=== PATIENT | female | born 1990 | race Two or more races ===

== ENCOUNTER 2019-07-26 11:35 | Emergency (ER) | payer MEDICAID ==
[~2019-07-26] VITALS: Ht 162.6 cm; Wt 69.9 kg
[2019-07-26 11:57] VITALS: BP 144/99
== END 2019-07-26 12:35 | disposition left against medical advice (07) ==
LOC: ER 11:35
DX: R10.9 Unspecified abdominal pain (principal); R11.2 Nausea with vomiting, unspecified; R19.7 Diarrhea, unspecified; Z53.21 Procedure and treatment not carried out due to patient leaving prior to being seen by health care provider

== ENCOUNTER 2019-10-29 05:34 | Emergency (ER) | payer SELFPAY ==
[~2019-10-29] VITALS: Ht 165.1 cm; Wt 70.3 kg
[2019-10-29 07:24] VITALS: BP 121/82
== END 2019-10-29 07:46 | disposition home or self-care (01) ==
LOC: ER 05:34
DX: J02.9 Acute pharyngitis, unspecified (principal); F17.210 Nicotine dependence, cigarettes, uncomplicated; F12.10 Cannabis abuse, uncomplicated

== ENCOUNTER 2021-01-05 16:31 | Emergency (ER) | payer MEDICAID, OTHER ==
[~2021-01-05] VITALS: Ht 167.6 cm; Wt 70.3 kg
[2021-01-05] MEDS ORDERED: PANTOPRAZOLE 40 MG/10 ML VIAL INJ IV STA (18:11)
[2021-01-05] MEDS ORDERED: MORPHINE SULFATE 4 MG/ML SYR/VIAL IV ONE (18:15)
[2021-01-05] MEDS ORDERED: ONDANSETRON HCL 4 MG/2 ML VIAL IV ONE (18:15)
[2021-01-05] MEDS ORDERED: SODIUM CHLORIDE 0.9% 1,000 ML IVB ONE (18:15)
[2021-01-05 18:40] LABS: Potassium 3.5 mmol/L (3.5-5.1)
[2021-01-05 18:56] LABS: Hemoglobin 13.4 g/dL (12.2-16.2); Platelet Count (auto) 301 10^3/uL (140-450); Red Cell Distribution Width 15.7 % (11.8-14.3)
[2021-01-05 18:58] LABS: Hematocrit 33.2 % (36.0-46.0); Mean Corpuscular Hemoglobin 33.2 pg (28.0-32.0); Mean Corpuscular Volume 81.9 fL (80.0-100.0); Red Blood Cells 4.05 10^6/uL (4.0-5.20); White Blood Cell 11.9 10^3/uL (4.4-10.8)
[2021-01-05 19:04] LABS: Basophils % (manual) 0 (0.0-2.0); Blast Cells 0; Mean Corpuscular Hgb Conc. 40.5 g/dL (32.0-36.0); Metamyelocytes % 0; Myelocytes % 0; Promyelocytes % 0; Reactive Lymphocytes 0
[2021-01-05 19:05] LABS: Urine Amorphous Crystal FEW /hpf (None Seen); Urine Bacteria FEW /hpf (None Seen); Urine Blood Negative /uL (Negative); Urine Specific Gravity 1.019 (1.001-1.035); Urine WBC 1 /hpf (0 - 5)
[2021-01-05 19:28] LABS: Band Neutrophils % (manual) 2; Eosinophils % (manual) 1 (0-7); Lymphocytes % (manual) 18 (10.0-50.0); Monocytes % (manual) 2 (0-12)
[2021-01-05 19:33] LABS: Bilirubin, Total 0.2 mg/dL (0.2-1.0)
[2021-01-05 19:34] LABS: Aspartate Aminotransferase 20.4 U/L (15-37)
[2021-01-05 19:35] LABS: Albumin 3.7 g/dL (3.4-5.0); Calcium 7.9 mg/dL (8.5-10.1); Total Protein 6.1 g/dL (6.4-8.2)
[2021-01-05 19:36] LABS: BUN/Creatinine Ratio 17.5
[2021-01-05 20:08] VITALS: BP 105/61
== END 2021-01-05 20:19 | disposition home or self-care (01) ==
LOC: ER 16:31
DX: R10.13 Epigastric pain (principal); F12.10 Cannabis abuse, uncomplicated; F17.210 Nicotine dependence, cigarettes, uncomplicated; E78.5 Hyperlipidemia, unspecified
CPT/HCPCS: 36415; 74176; 76705; 80053; 81001; 81025; 83690; 85007; 85027; 96361; 96374; 96375; 99285; C9113; J2270; J2405; J7030

== ENCOUNTER 2021-01-14 10:02 | Inpatient (IN) | payer OTHER ==
[~2021-01-14] VITALS: Ht 167.6 cm; Wt 74.3 kg
[2021-01-14] MEDS ORDERED: PROCHLORPERAZINE EDISYLATE 5 MG/ML 2ML VIAL IV ONE (10:30)
[2021-01-14] MEDS ORDERED: SODIUM CHLORIDE 0.9% 1,000 ML IVB ONE (10:30)
[2021-01-14] MEDS ORDERED: PANTOPRAZOLE 40 MG/10 ML VIAL INJ IV STA (10:30)
[2021-01-14] MEDS ORDERED: HYDROmorphone HCL 2 MG/ML VL IV ONE (10:30)
[2021-01-14 10:55] LABS: Eosinophils # (auto) 0.2 10 ^3/uL (0-0.8); Nucleated Red Blood Cells % 0.2 %
[2021-01-14 10:57] LABS: Basophils # (auto) 0.2 10 ^3/uL (0-0.2); Basophils % (auto) 2.1 % (0.0-2.0); Eosinophils % (auto) 1.9 % (0.0-7.0); Hematocrit 32.8 % (36.0-46.0); Hemoglobin 12.5 g/dL (12.2-16.2); Lymphocytes # (auto) 2.4 10 ^3/uL (0.4-5.4); Lymphocytes % (auto) 25.8 % (10.0-50.0); Mean Corpuscular Hemoglobin 30.3 pg (28.0-32.0); Mean Corpuscular Hgb Conc. 38.1 g/dL (32.0-36.0); Mean Corpuscular Volume 79.6 fL (80.0-100.0); Monocytes # (auto) 0.4 10 ^3/uL (0-1.3); Monocytes % (auto) 4.4 % (0.0-12.0); Neutrophils # (auto) 6.2 10 ^3/uL (1.6-8.6); Neutrophils % (auto) 65.8 % (37.0-80.0); Platelet Count (auto) 333 10^3/uL (140-450); Red Blood Cells 4.12 10^6/uL (4.0-5.20); Red Cell Distribution Width 15.9 % (11.8-14.3); White Blood Cell 9.4 10^3/uL (4.4-10.8)
[2021-01-14 12:16] LABS: Aspartate Aminotransferase 679 U/L (15-37)
[2021-01-14 13:54] LABS: Alanine Aminotransferase 60 U/L (13-56); Alkaline Phosphatase 74 U/L (45-117); Total Protein 10.5 g/dL (6.4-8.2)
[2021-01-14 13:55] LABS: Chloride 101 mmol/L (98-107); Potassium 4.7 mmol/L (3.5-5.1); Sodium 133 mmol/L (136-145)
[2021-01-14 13:56] LABS: Anion Gap 24 (5-15); Carbon Dioxide 8 mmol/L (21-32); GFR African American 181 mL/min; GFR Non-African American 149 mL/min; Glucose 168 mg/dL (74-106)
[2021-01-14 13:57] LABS: BUN/Creatinine Ratio 15.4; Blood Urea Nitrogen 8 mg/dL (7-18); Calcium 8.2 mg/dL (8.5-10.1)
[2021-01-14 13:58] LABS: Amylase 76 U/L (25-115); Lipase 759 U/L (73-393)
[2021-01-14 14:17] LABS: Urine Bacteria FEW /hpf (None Seen); Urine Blood TRACE /uL (Negative); Urine Mucus FEW (None Seen); Urine Specific Gravity 1.016 (1.001-1.035); Urine WBC 2 /hpf (0 - 5)
[2021-01-14] MEDS ORDERED: IOHEXOL 300 MG/ML 100ML BOTTLE IJ ONE (14:20)
[2021-01-14 14:28] LABS: Bilirubin, Total 0.9 mg/dL (0.2-1.0)
[2021-01-14] MEDS ORDERED: LACTATED RINGER'S 1,000 ML IV ONE (14:30)
[2021-01-14] MEDS: ONDANSETRON HCL 4 MG/2 ML VIAL IV PRN (16:50)
[2021-01-14] MEDS ORDERED: OMEP-260 PO (17:09)
[2021-01-14] MEDS ORDERED: FERR324T4 PO (17:09)
[2021-01-14] MEDS ORDERED: FENO54TA4 PO (17:09)
[2021-01-14] MEDS ORDERED: HYDR-3682 PO (17:09)
[2021-01-14] MEDS: LACTATED RINGER'S 1,000 ML IV SCH ×2 (17:22→22:14)
[2021-01-14 18:24] LABS: CRP High Sensitivity 0.64 mg/dL (< 0.3)
[2021-01-14 18:33] LABS: Cholesterol 325 mg/dL (< 200); HDL Cholesterol 21 mg/dL (40-59); Triglycerides 3427 mg/dL (< 150)
[2021-01-14] MEDS: HYDROmorphone HCL 2 MG/ML VL IV PRN (18:34)
[2021-01-14 22:00] VITALS: BP 133/80
[2021-01-15 05:00] VITALS: BP 129/77
[2021-01-15 05:34] LABS: Basophils # (auto) 0.2 10 ^3/uL (0-0.2); Basophils % (auto) 1.2 % (0.0-2.0); Eosinophils # (auto) 0.1 10 ^3/uL (0-0.8); Eosinophils % (auto) 0.5 % (0.0-7.0); Hematocrit 32.3 % (36.0-46.0); Hemoglobin 11.1 g/dL (12.2-16.2); Lymphocytes % (auto) 12.2 % (10.0-50.0); Mean Corpuscular Hemoglobin 27.5 pg (28.0-32.0); Mean Corpuscular Hgb Conc. 34.3 g/dL (32.0-36.0); Mean Corpuscular Volume 80.2 fL (80.0-100.0); Monocytes # (auto) 0.7 10 ^3/uL (0-1.3); Monocytes % (auto) 4.2 % (0.0-12.0); Neutrophils # (auto) 13.6 10 ^3/uL (1.6-8.6); Neutrophils % (auto) 81.9 % (37.0-80.0); Nucleated Red Blood Cells % 0.2 %; Platelet Count (auto) 317 10^3/uL (140-450); Red Blood Cells 4.02 10^6/uL (4.0-5.20); Red Cell Distribution Width 15.7 % (11.8-14.3); White Blood Cell 16.6 10^3/uL (4.4-10.8)
[2021-01-15 05:44] LABS: Albumin 2.6 g/dL (3.4-5.0); Calcium 7.1 mg/dL (8.5-10.1)
[2021-01-15] MEDS: LACTATED RINGER'S 1,000 ML IV SCH ×3 (05:45→22:33)
[2021-01-15] MEDS: HYDROmorphone HCL 2 MG/ML VL IV PRN ×3 (05:45→20:33)
[2021-01-15 05:47] LABS: Bilirubin, Total 0.8 mg/dL (0.2-1.0); Total Protein 6.2 g/dL (6.4-8.2)
[2021-01-15 06:55] LABS: BUN/Creatinine Ratio 11.9
[2021-01-15 09:00] VITALS: BP 123/71
[2021-01-15] MEDS: ESOMEPRAZOLE 40 MG/5ml VIAL INJ IV SCH (09:38)
[2021-01-15 12:45] VITALS: BP 137/79
[2021-01-15 16:50] VITALS: BP 140/87
[2021-01-15 22:00] VITALS: BP 139/85
[2021-01-15] MEDS: ONDANSETRON HCL 4 MG/2 ML VIAL IV PRN (23:43)
[2021-01-16] MEDS: HYDROmorphone HCL 2 MG/ML VL IV PRN ×3 (04:13→20:01)
[2021-01-16 05:00] VITALS: BP 146/81
[2021-01-16] MEDS: LACTATED RINGER'S 1,000 ML IV SCH ×3 (06:32→22:15)
[2021-01-16 06:59] LABS: Basophils # (auto) 0.1 10 ^3/uL (0-0.2); Basophils % (auto) 0.6 % (0.0-2.0); Eosinophils # (auto) 0 10 ^3/uL (0-0.8); Eosinophils % (auto) 0.1 % (0.0-7.0); Hematocrit 29.4 % (36.0-46.0); Hemoglobin 9.8 g/dL (12.2-16.2); Lymphocytes # (auto) 2.2 10 ^3/uL (0.4-5.4); Mean Corpuscular Hemoglobin 26.6 pg (28.0-32.0); Mean Corpuscular Hgb Conc. 33.2 g/dL (32.0-36.0); Mean Corpuscular Volume 80.3 fL (80.0-100.0); Monocytes # (auto) 0.9 10 ^3/uL (0-1.3); Neutrophils # (auto) 14.9 10 ^3/uL (1.6-8.6); Neutrophils % (auto) 82.3 % (37.0-80.0); Platelet Count (auto) 276 10^3/uL (140-450); Red Blood Cells 3.66 10^6/uL (4.0-5.20); Red Cell Distribution Width 15.6 % (11.8-14.3); White Blood Cell 18.1 10^3/uL (4.4-10.8)
[2021-01-16 08:34] VITALS: BP 135/89
[2021-01-16] MEDS: ESOMEPRAZOLE 40 MG/5ml VIAL INJ IV SCH (10:03)
[2021-01-16] MEDS: ONDANSETRON HCL 4 MG/2 ML VIAL IV PRN (10:55)
[2021-01-16 12:41] VITALS: BP 140/76
[2021-01-16] MEDS: CEFTRIAXONE SODIUM 2 GM in D5W 5% 50 ML IV SCH (13:47)
[2021-01-16 16:41] VITALS: BP 135/93
[2021-01-16] MEDS: metroNIDAZOLE 500MG/100ML 100 ML IV SCH (17:20)
[2021-01-16] MEDS: ACETAMINOPHEN 325 MG TAB PO PRN (17:20)
[2021-01-16 22:00] VITALS: BP 134/87
[2021-01-17] MEDS: metroNIDAZOLE 500MG/100ML 100 ML IV SCH ×3 (01:45→17:57)
[2021-01-17] MEDS: ACETAMINOPHEN 325 MG TAB PO PRN ×2 (01:45→20:26)
[2021-01-17 05:00] VITALS: BP 143/93
[2021-01-17] MEDS: LACTATED RINGER'S 1,000 ML IV SCH (06:01)
[2021-01-17 07:14] LABS: Basophils # (auto) 0.1 10 ^3/uL (0-0.2); Eosinophils # (auto) 0.1 10 ^3/uL (0-0.8); Eosinophils % (auto) 0.7 % (0.0-7.0); Monocytes # (auto) 0.7 10 ^3/uL (0-1.3); Monocytes % (auto) 4.7 % (0.0-12.0)
[2021-01-17 07:16] LABS: Basophils % (auto) 0.6 % (0.0-2.0); Hematocrit 24.6 % (36.0-46.0); Hemoglobin 8.6 g/dL (12.2-16.2); Lymphocytes # (auto) 2.4 10 ^3/uL (0.4-5.4); Lymphocytes % (auto) 16.3 % (10.0-50.0); Mean Corpuscular Hemoglobin 28.2 pg (28.0-32.0); Mean Corpuscular Hgb Conc. 34.9 g/dL (32.0-36.0); Mean Corpuscular Volume 80.8 fL (80.0-100.0); Neutrophils # (auto) 11.3 10 ^3/uL (1.6-8.6); Neutrophils % (auto) 77.7 % (37.0-80.0); Platelet Count (auto) 244 10^3/uL (140-450); Red Blood Cells 3.04 10^6/uL (4.0-5.20); Red Cell Distribution Width 15.4 % (11.8-14.3); White Blood Cell 14.5 10^3/uL (4.4-10.8)
[2021-01-17 08:47] VITALS: BP 131/89
[2021-01-17] MEDS: ESOMEPRAZOLE 40 MG/5ml VIAL INJ IV SCH (10:52)
[2021-01-17 12:50] VITALS: BP 137/87
[2021-01-17] MEDS: HYDROmorphone HCL 2 MG/ML VL IV PRN (13:08)
[2021-01-17] MEDS: ONDANSETRON HCL 4 MG/2 ML VIAL IV PRN (13:08)
[2021-01-17] MEDS: CEFTRIAXONE SODIUM 2 GM in D5W 5% 50 ML IV SCH (14:30)
[2021-01-17 17:00] VITALS: BP 149/84
[2021-01-17 22:00] VITALS: BP 146/88
[2021-01-17] MEDS ORDERED: ATORVASTATIN 20 MG TAB PO SCH (22:00)
[2021-01-17] MEDS: GEMFIBROZIL 600 MG TAB PO SCH (22:30)
[2021-01-18] MEDS: metroNIDAZOLE 500MG/100ML 100 ML IV SCH ×2 (01:59→09:47)
[2021-01-18] MEDS: ONDANSETRON HCL 4 MG/2 ML VIAL IV PRN (04:04)
[2021-01-18] MEDS: HYDROmorphone HCL 2 MG/ML VL IV PRN (04:04)
[2021-01-18 05:00] VITALS: BP 134/79
[2021-01-18 06:23] LABS: Hemoglobin 8.2 g/dL (12.2-16.2); Mean Corpuscular Volume 80.6 fL (80.0-100.0)
[2021-01-18 06:25] LABS: Hematocrit 23.7 % (36.0-46.0); Mean Corpuscular Hemoglobin 27.8 pg (28.0-32.0); Mean Corpuscular Hgb Conc. 34.5 g/dL (32.0-36.0); Platelet Count (auto) 255 10^3/uL (140-450); Red Blood Cells 2.94 10^6/uL (4.0-5.20); Red Cell Distribution Width 15.4 % (11.8-14.3); White Blood Cell 9.5 10^3/uL (4.4-10.8)
[2021-01-18 06:34] LABS: Basophils % (manual) 0 (0.0-2.0); Myelocytes % 0
[2021-01-18 06:35] LABS: Blast Cells 0; Promyelocytes % 0; Reactive Lymphocytes 0
[2021-01-18 07:16] LABS: Band Neutrophils % (manual) 1; Eosinophils % (manual) 3 (0-7); Lymphocytes % (manual) 19 (10.0-50.0); Metamyelocytes % 1; Monocytes % (manual) 7 (0-12)
[2021-01-18 08:51] VITALS: BP 135/89
[2021-01-18] MEDS: GEMFIBROZIL 600 MG TAB PO SCH (09:47)
[2021-01-18] MEDS: ESOMEPRAZOLE 40 MG/5ml VIAL INJ IV SCH (09:48)
[2021-01-18 12:49] VITALS: BP 137/79
== END 2021-01-18 15:26 | disposition home or self-care (01) | DRG 282 ==
LOC: ER 10:02 → TELE 10:03 → TELE-WESTW 16:28
PROVIDERS: ADMIT Nurse Practitioner Acute Care; ATTEND Family Medicine
DX: K85.20 Alcohol induced acute pancreatitis without necrosis or infection (principal); R65.10 Systemic inflammatory response syndrome (SIRS) of non-infectious origin without acute organ dysfunction; E87.2 Acidosis; E44.0 Moderate protein-calorie malnutrition; E86.0 Dehydration; E78.5 Hyperlipidemia, unspecified; E78.00 Pure hypercholesterolemia, unspecified; E78.1 Pure hyperglyceridemia; F17.210 Nicotine dependence, cigarettes, uncomplicated; Z20.822 Contact with and (suspected) exposure to COVID-19; Z83.3 Family history of diabetes mellitus; Z79.899 Other long term (current) drug therapy
CPT/HCPCS: 36415; 74177; 76705; 80053; 80061; 81001; 82150; 83605; 83690; 84702; 85007; 85025; 85027; 86141; 87040; 87086; 87426; 96361; 96374; 96375; C9113; G0378; J0696; J2405; J3490; J7060

== ENCOUNTER 2022-07-11 00:35 | Emergency (ER) | payer OTHER ==
[~2022-07-11] VITALS: Ht 167.6 cm; Wt 65.0 kg
[~2022-07-11 00:35] MED LIST: FENO54TA4 PO; FERR324T4 PO; HYDR-3682 PO; OMEP-260 PO
[2022-07-11 05:03] LABS: Basophils # (auto) 0.1 10 ^3/uL (0-0.2); Basophils % (auto) 0.6 % (0.0-2.0); Eosinophils # (auto) 0.2 10 ^3/uL (0-0.8); Eosinophils % (auto) 1.8 % (0.0-7.0); Hematocrit 33.4 % (36.0-46.0); Hemoglobin 12.1 g/dL (12.2-16.2); Lymphocytes # (auto) 3.9 10 ^3/uL (0.4-5.4); Mean Corpuscular Hemoglobin 31.1 pg (28.0-32.0); Mean Corpuscular Hgb Conc. 36.2 g/dL (32.0-36.0); Mean Corpuscular Volume 85.8 fL (80.0-100.0); Monocytes # (auto) 0.5 10 ^3/uL (0-1.3); Neutrophils # (auto) 6.2 10 ^3/uL (1.6-8.6); Neutrophils % (auto) 56.6 % (37.0-80.0); Nucleated Red Blood Cells % 0.2 %; Red Blood Cells 3.89 10^6/uL (4.0-5.20); Red Cell Distribution Width 13.4 % (11.8-14.3); White Blood Cell 10.9 10^3/uL (4.4-10.8)
[2022-07-11 05:09] LABS: Albumin 3.1 g/dL (3.4-5.0); Calcium 7.6 mg/dL (8.5-10.1)
[2022-07-11 05:17] LABS: Bilirubin, Total 0.6 mg/dL (0.2-1.0)
[2022-07-11 05:45] VITALS: BP 139/83
[2022-07-11 05:48] LABS: BUN/Creatinine Ratio 16.4
== END 2022-07-11 05:52 | disposition home or self-care (01) ==
LOC: ER 00:37
DX: R07.89 Other chest pain (principal); E78.5 Hyperlipidemia, unspecified
CPT/HCPCS: 36415; 71045; 80053; 84484; 85025; 93005

== ENCOUNTER 2022-10-15 14:06 | Emergency (ER) | payer OTHER ==
[~2022-10-15] VITALS: Ht 167.6 cm; Wt 65.0 kg
[2022-10-15] MEDS ORDERED: HYDROcodone-ACET 5/325MG TAB PO ONE (14:45)
[2022-10-15] MEDS ORDERED: ONDANSETRON HCL 4 MG/2 ML VIAL IV ONE (16:30)
[2022-10-15] MEDS ORDERED: MORPHINE SULFATE 4 MG/ML SYR/VIAL IV ONE (16:30)
[2022-10-15] MEDS ORDERED: MORPHINE SULFATE INJ 2 MG/ml SYRG IV ONE (17:00)
[2022-10-15] MEDS ORDERED: ONDANSETRON ODT 4 MG TAB PO ONE (20:00)
[2022-10-15] MEDS ORDERED: MORPHINE SULFATE INJ 2 MG/ml SYRG IM ONE (20:00)
[2022-10-15 21:30] VITALS: BP 128/76
== END 2022-10-15 22:09 | disposition short-term general hospital (02) ==
LOC: ER 14:06
DX: S32.019A Unspecified fracture of first lumbar vertebra, initial encounter for closed fracture (principal); E78.5 Hyperlipidemia, unspecified; W22.8XXA Striking against or struck by other objects, initial encounter; Y93.23 Activity, snow (alpine) (downhill) skiing, snowboarding, sledding, tobogganing and snow tubing; Y92.89 Other specified places as the place of occurrence of the external cause; Y99.8 Other external cause status
CPT/HCPCS: 71250; 72100; 72125; 72131; 72220; 74176; 96372; 96374; 96375; 99285; J2270; J2405; Q0162

== ENCOUNTER 2024-08-14 12:02 | Inpatient (IN) | payer OTHER ==
[~2024-08-14] VITALS: Ht 167.6 cm; Wt 63.8 kg
[~2024-08-14 12:02] MED LIST changes: -OMEP-260 PO; +OMEP1CAP70 PO
--- NOTE | 2024-08-14 12:14 | ED.PDOC ---
History of Present Illness HPI Comments 34-year-old female came to the ER complaining of abdominal pain. Abdominal pain started this morning after having pizza. She states her pain is 10/10 with no radiation of the pain. Mostly in the epigastric region. She had a similar pain several years ago for which she was diagnosed with possible gastritis. She did take Pepto-Bismol prior to coming to the ER without any relief. Abdominal pain associated with nausea vomiting. Denies diarrhea. Denies any past medical surgical history. Chief Complaint: Abdominal Pain Time Seen by MD: 12:04 Primary Care Provider: unknown Reviewed Notes: Nurses Notes, Medications, Allergies Allergies: Coded Allergies: NO KNOWN ALLERGIES (Unverified , 10/29/19) Home Meds Reported Medications Hydroxyzine Hcl (Hydroxyzine Hcl) 25 Mg Tab, 1-2 TAB PO QHSP PRN for FOR INSO MNIA 01/14/21 Ferrous Sulfate (FERROUS SULFATE) 324 Mg Tab, 1 TAB PO DAILY 01/14/21 Fenofibrate (Fenofibrate) 54 Mg Tab, 1 TAB PO TID 01/14/21 Omeprazole (Omeprazole Dr) 20 Mg Cap, 1 CAP PO DAILY 01/14/21 Information Source: Patient Mode of Arrival: Ambulatory Severity: Moderate Timing: Hours Duration: Since onset Past Medical History PAST MEDICAL HISTORY: High Lipids Surgical History: Denies all surgeries FEDERAL AGENT History: No Pertinent FEDERAL AGENT History Family History Family History: Reviewed,noncontributory to illness, Family hx of DM Social History Smoker: Non-Smoker Alcohol: Denies ETOH Use Drugs: Denies Drug Use Lives In: Home Constitutional: denies: chills, diaphoresis, fatigue, fever, malaise, sweats, weakness, others EENTM: denies: blurred vision, double vision, ear bleeding, ear discharge, ear drainage, ear pain, ear ringing, eye pain, eye redness, hearing loss, mouth pain, mouth swelling, nasal discharge, nose bleeding, nose congestion, nose pain, photophobia, tearing, throat pain, throat swelling, voice changes, others Respiratory: denies: cough, hemoptysis, orthopnea, SOB at rest, shortness of breath, SOB with excertion, stridor, wheezing, others Cardiovascular: denies: chest pain, dizzy spells, diaphoresis, Dyspnea on exertion, edema, irregular heart beat, left arm pain, lightheadedness, palpitations, PND, syncope, others Gastrointestinal: reports: abdominal pain, nausea, vomiting; denies: abdomen distended, blood streaked bowels, constipated, diarrhea, dysphagia, difficulty swallowing, hematemesis, melena, poor appetite, poor fluid intake, rectal bleeding, rectal pain, others Genitourinary: denies: abnormal vagina bleeding, burning, dyspareunia, dysuria, flank pain, frequency, hematuria, incontinence, pain, , vagina discharge, urgency, others Neurological: denies: dizziness, fainting, headache, left sided numbness, left sided weakness, numbness, paresthesia, pre-existing deficit, right sided numbness, right sided weakness, seizure, speech problems, tingling, tremors, weakness, others Musculoskeletal: denies: back pain, gout, joint pain, joint swelling, muscle pain, muscle stiffness, neck pain, others Integumetry: denies: bruises, change in color, change in hair/nails, dryness, laceration, lesions, lumps, rash, wounds, others Allergic/Immunocompromised: denies: Difficulty Healing, Frequent Infections, Hives, Itching, others Hematologic/Lymphatic: denies: anemia, blood clots, easy bleeding, easy bruising, swollen glands, others Endocrine: denies: excessive hunger, excessive sweating, excessive thirst, excessive urination, flushing, intolerance to cold, intolerance to heat, unexplained weight gain, unexplained weight loss, others Psychiatric: denies: anxiety, bipolar disorder, depression, hopeless, panic disorder, schizophrenia, sleepless, suicidal, others Physical Exam General Appearance: Moderate Distress HEENT: Normal ENT Inspection, Pharynx Normal, TMs Normal Neck: Full Range of Motion, Non-Tender, Normal, Normal Inspection Respiratory: Chest Non-Tender, Lungs Clear, No Accessory Muscle Use, No Respiratory Distress, Normal Breath Sounds Cardiovascular: No Edema, No JVD, No Murmur, No Gallop, Normal Peripheral Pulses, Regular Rate/Rhythm Breast Exam: Deferred Gastrointestinal: Soft Genitalia: Deferred Pelvic: Deferred Rectal: Deferred Extremities: No calf tenderness, Normal capillary refill, Normal inspection, Normal range of motion, Non-tender, No pedal edema Musculoskeletal : Apperance: Normal Neurologic: Alert, recreational director II-XII nml as Tested, No Motor Deficits, Normal Affect, Normal Mood, No Sensory Deficits Cerebellar Function: Normal Reflexes: Normal Skin: Dry, Normal Color, Warm Peripheral Pulses: 3+ Radial (R), 3+ Radial (L) Lymphatic: No Adenopathy Was a procedure done? Was a procedure done?: No Differential Dx Considerations may include: Gastritis Electrolyte imbalance X-Ray, Labs, Meds, VS Vital Signs Date Time Temp Pulse Resp B/P (MAP) Pulse Ox O2 Delivery O2 Flow Rate FiO2 08/14/24 15:00 97.8 79 17 94/69 (77) 96 97.8 08/14/24 12:44 97.7 76 17 133/87 (102) 100 97.7 08/14/24 12:44 76 17 100 Room Air* 0 21 08/14/24 12:12 98.0 76 18 134/88 (103) 99 Lab Test 08/14/24 12:35 08/14/24 12:07 Range/Units White Blood Count 14.4 H 4.4-10.8 10^3/uL Red Blood Count 4.27 4.0-5.20 10^6/uL Hemoglobin 12.1 L 12.2-16.2 g/dL Hematocrit 35.7 L 36.0-46.0 % Mean Corpuscular Volume 83.6 80.0-100.0 fL Mean Corpuscular Hemoglobin 28.3 28.0-32.0 pg Mean Corpuscular Hemoglobin Concent 33.6 32.0-36.0 g/dL Red Cell Distribution Width 14.9 H 11.8-14.3 % Platelet Count 337 140-450 10^3/uL Mean Platelet Volume 7.2 6.9-10.8 fL Neutrophils (%) (Auto) 37.0-80.0 % Lymphocytes (%) (Auto) 10.0-50.0 % Monocytes (%) (Auto) 0.0-12.0 % Basophils (%) (Auto) 0.0-2.0 % Neutrophils # (Auto) 1.6-8.6 10 ^3/uL Lymphocytes # (Auto) 0.4-5.4 10 ^3/uL Monocytes # (Auto) 0-1.3 10 ^3/uL Differential Total Cells Counted 100.0 100 Neutrophils % (Manual) 46 37.0-80.0 Band Neutrophils % (Manual) 0 Lymphocytes % (Manual) 46 10.0-50.0 Monocytes % (Manual) 5 0-12 Eosinophils % (Manual) 3 0-7 Basophils % (Manual) 0 0.0-2.0 Metamyelocytes % (manual) 0 Myelocytes % (Manual) 0 Promyelocytes % (Manual) 0 Blast Cells % (Manual) 0 Reactive Lymphocytes 0 Platelet Estimate Adequate Stomatocytes Few Sodium Level 133 L 136-145 mmol/L Potassium Level 3.6 3.5-5.1 mmol/L Chloride Level 100 98-107 mmol/L Carbon Dioxide Level < 10 *L 20-31 mmol/L Anion Gap 23.70706 H 5-15 Blood Urea Nitrogen 9 9-23 mg/dL Creatinine 0.77 0.550-1.02 mg/dL Glomerular Filtration Rate Calc 105 >90 mL/min BUN/Creatinine Ratio 11.7 10.0-20.0 Serum Glucose 139 H 74-106 mg/dL Calcium Level 9.1 8.7-10.4 mg/dL Total Bilirubin 0.4 0.2-1.0 mg/dL Lipase 980 H 12-53 U/L Urine Color Colorless Yellow Urine Clarity Clear Clear Urine pH 5.5 5.0-9.0 Urine Specific [place] 1.013 1.001-1.035 Urine Protein Negative Negative Urine Ketones Negative Negative Urine Blood 1+ H Negative /uL Urine Nitrite Negative Negative Urine Bilirubin Negative Negative Urine Urobilinogen Normal Negative mg/dL Urine Leukocyte Esterase Negative Negative /uL Urine RBC 3 0 - 4 /hpf Urine WBC <1 0 - 5 /hpf Urine Squamous Epithelial Cells Few <5 /hpf Urine Bacteria Few H None Seen /hpf Urine Glucose Normal Normal mg/dL Current Medications Medications (Trade) Dose Ordered Sig/Snow Route Start Time Stop Time Status Last Admin Belladonna Alkaloids/ Phenobarbital ( Elixir) 10 ml ONCE ONCE PO 08/14/24 12:15 08/14/24 12:16 DC 08/14/24 12:43 Al Hydrox/Mg Hydrox/Simethicone (Maalox Plus) 30 ml ONCE ONCE PO 08/14/24 12:15 08/14/24 12:16 DC 08/14/24 12:43 Lidocaine HCl (Xylocaine 2% Viscous) 15 ml ONCE ONCE PO 08/14/24 12:15 08/14/24 12:16 DC 08/14/24 12:42 Ketorolac Tromethamine (Toradol Injection) 30 mg ONCE ONCE IV 08/14/24 14:45 08/14/24 14:46 DC 08/14/24 14:38 Patient alert. Complaining of abdominal pain. Vitals stable. Answering questions Possible gastritis. Was given GI cocktail. Reviewed her history. Continues to have abdominal pain. Possibly will need endoscope. GI consultation. Explained to the patient treatment plan. Continue cardiac care nurse. CT scan of the abdomen reviewed does show pancreatitis. WBC elevated. Was given Rocephin. Was given Flagyl. Was given Dilaudid. CT Abd/Pel: FINDINGS: [Findings] Evaluation of the abdominal viscera is limited without intravenous contrast. There is fat stranding diffusely along the margins of the pancreas compatible with acute pancreatitis. There is no gross evidence of a discrete pancreatic lesion or fluid collection. There is fatty infiltration of the liver. The gallbladder, kidneys, adrenal glands, and spleen appear within normal limits. There is no gross evidence of abdominal lymphadenopathy. There is no free fluid or free air. The stomach grossly appears unremarkable. The small and large bowel loops demonstrate normal caliber. There are scattered diverticula in the colon without evidence of acute diverticulitis. The abdominal aorta and IVC appear within normal limits. The bladder appears unremarkable. The uterus appears within normal limits. There is a 3.1 cm cystic structure in the right adnexa likely a right ovarian cyst. There is no evidence of a pelvic mass or lymphadenopathy. There is no free fluid collection. Lung bases are clear. There is no acute osseous abnormality. IMPRESSION: 1. There is diffuse peripancreatic fat stranding compatible with acute pancreatitis. There is no gross evidence of a discrete pancreatic lesion or fluid collection. 2. Hepatic steatosis. 3. Scattered colonic diverticula. 4. 3.1 cm right ovarian cyst. Images Reviewed?: Images reviewed and evaluated by me Time of 1ST Reevaluation: 12:12 Reevaluation 1ST: Unchanged Patient Education/Counseling: Diagnosis, Treatment, Prognosis Family Education/Counseling: No Family Present Departure 1 Departure Time of Disposition: 12:13 Impression: Primary Impression: Intractable abdominal pain Additional Impression: Acute pancreatitis Qualified Codes: K85.90 - Acute pancreatitis without necrosis or infection, unspecified Disposition: 09 ADMITTED INPATIENT Admit to: Med Surg Condition: Guarded Critical Care Note Critical Care Time?: Yes (45 min-critical care time only) Critical care comment: Continues to have abdominal pain. Was given GI cocktail. Will continue to monitor. Stability Stability form required: No Heart Score Heart Score: Heart Score Response (Comments) Value History N/A 0 EKG N/A 0 Age N/A 0 Risk Factors N/A 0 Troponin N/A 0 Total 0 I personally scribed for EDUARDA BARRETT MD ([email or web address]) on 08/14/24 at 12:33. Electronically submitted by Refugio Stewart ([email or web address]). I personally scribed for EDUARDA BARRETT MD ([email or web address]) on 08/14/24 at 16:17. Electronically submitted by Refugio Stewart ([email or web address]). EDUARDA BARRETT MD Aug 14, 2024 12:13
[2024-08-14] MEDS: LIDOCAINE VISCOUS 2% 15ML UD PO ONE (12:42)
[2024-08-14] MEDS: DONNATAL 5ml ORAL Elix (BELLADONNA ALK-PHENOBARB) PO ONE (12:43)
[2024-08-14] MEDS: MAALOX PLUS or MAALOX 30 ML PO ONE (12:43)
[2024-08-14 12:44] VITALS: PULSE 76; RESP 17; O2SAT 100
[2024-08-14 12:49] LABS: Red Blood Cells 4.27 10^6/uL (4.0-5.20); Red Cell Distribution Width 14.9 % (11.8-14.3)
[2024-08-14 12:51] LABS: Hematocrit 35.7 % (36.0-46.0); Mean Corpuscular Volume 83.6 fL (80.0-100.0); Platelet Count (auto) 337 10^3/uL (140-450); White Blood Cell 14.4 10^3/uL (4.4-10.8)
[2024-08-14 12:53] LABS: Urine Bacteria FEW /hpf (None Seen); Urine Blood 1+ /uL (Negative); Urine Clarity Clear (Clear); Urine Color Colorless (Yellow); Urine Protein, UAD Negative (Negative); Urine Specific Gravity 1.013 (1.001-1.035); Urine Urobilinogen Normal (Negative); Urine WBC <1 /hpf (0 - 5); Urine pH 5.5 (5.0-9.0)
[2024-08-14 13:55] LABS: Mean Corpuscular Hemoglobin 28.3 pg (28.0-32.0)
[2024-08-14 13:56] LABS: Hemoglobin 12.1 g/dL (12.2-16.2); Mean Corpuscular Hgb Conc. 33.6 g/dL (32.0-36.0)
[2024-08-14 13:57] LABS: Band Neutrophils % (manual) 0; Basophils % (manual) 0 (0.0-2.0); Blast Cells 0; Metamyelocytes % 0; Myelocytes % 0; Promyelocytes % 0; Reactive Lymphocytes 0
[2024-08-14 14:22] LABS: Eosinophils % (manual) 3 (0-7); Lymphocytes % (manual) 46 (10.0-50.0); Monocytes % (manual) 5 (0-12); Platelet Estimate Adequate; Stomatocytes Few
[2024-08-14 14:34] LABS: Chloride 100 mmol/L (98-107); Potassium 3.6 mmol/L (3.5-5.1)
[2024-08-14 14:35] LABS: Calcium 9.1 mg/dL (8.7-10.4)
[2024-08-14] MEDS: KETOROLAC TROMETH 30 MG/ML 1ML VIAL IV ONE (14:38)
[2024-08-14 14:40] LABS: BUN/Creatinine Ratio 11.7 (10.0-20.0); Blood Urea Nitrogen 9 mg/dL (9-23); Glucose 139 mg/dL (74-106)
[2024-08-14 14:42] LABS: Bilirubin, Total 0.4 mg/dL (0.2-1.0)
[2024-08-14 14:55] LABS: Carbon Dioxide < 10 mmol/L (20-31)
[2024-08-14 15:15] LABS: Anion Gap 23.00001 (5-15); Sodium 133 mmol/L (136-145)
[2024-08-14 15:16] LABS: Lipase 980 U/L (12-53)
--- NOTE | 2024-08-14 15:41 | DVH ---
CT ABDOMEN AND PELVIS WITHOUT CONTRAST CLINICAL HISTORY: appyvsgastritis TECHNIQUE: Multidetector CT of the abdomen was performed from lung bases to pubic symphysis. Imaging was performed without IV contrast. Axial, coronal and sagittal multiplanar reformats were obtained fr om the axial data set by the technologist. Radiation optimization: All CT scans at this facility use at least one of these dose optimization lizzette hniques: automated exposure control mA and/or kV adjustment per patient size (includes targeted exam s where dose is matched to clinical indication) or iterative reconstruction. Radiation Dose Information: CT Dose: CTDI volume is 6.7 mGy. Dose-length product is 389 mGy*cm Comparison: CT CHEST ABD PELVIS WO CONTRAS on DOS: 10/15/22 FINDINGS: [Findings] Evaluation of the abdominal viscera is limited without intravenous contrast. There is fat stranding diffusely along the margins of the pancreas compatible with acute pancreatitis . There is no gross evidence of a discrete pancreatic lesion or fluid collection. There is fatty infiltration of the liver. The gallbladder, kidneys, adrenal glands, and spleen appear within normal limits. There is no gross evidence of abdominal lymphadenopathy. There is no free fluid or free air. The stomach grossly appears unremarkable. The small and large bowel loops demonstrate normal caliber. There are scattered diverticula in the colon without evidence of acute diverticulitis. The abdominal aorta and IVC appear within normal limits. The bladder appears unremarkable. The uterus appears within normal limits. There is a 3.1 cm cystic structure in the right adnexa likely a right ovarian cyst. There is no evidence of a pelvic mass or l ymphadenopathy. There is no free fluid collection. Lung bases are clear. There is no acute osseous abnormality. IMPRESSION: 1. There is diffuse peripancreatic fat stranding compatible with acute pancreatitis. There is no antonio s evidence of a discrete pancreatic lesion or fluid collection. 2. Hepatic steatosis. 3. Scattered colonic diverticula. 4. 3.1 cm right ovarian cyst. HS:Y
[2024-08-14] MEDS: cefTRIAXone 1GM/50ML D5W 50 ML IV ONE (17:12)
[2024-08-14] MEDS: metroNIDAZOLE 500MG/100ML 100 ML IV ONE (17:32)
[2024-08-14] MEDS: ONDANSETRON HCL 4 MG/2 ML VIAL IV ONE (18:02)
[2024-08-14] MEDS: HYDROmorphone HCL 2 MG/ML VL/or syr IV ONE (18:04)
[2024-08-14] MEDS ORDERED: ACETAMINOPHEN 325 MG TAB PO PRN (21:45)
[2024-08-14] MEDS ORDERED: MORPHINE SULFATE INJ 2 MG/ml SYRG IV PRN (21:45)
[2024-08-14] MEDS ORDERED: ONDANSETRON HCL 4 MG/2 ML VIAL IV PRN (21:45)
[2024-08-14] MEDS ORDERED: NITROGLYCERIN 0.4 MG SL TAB SL PRN (21:45)
[2024-08-14] MEDS: MORPHINE SULFATE INJ 2 MG/ml SYRG IV PRN (22:02)
[2024-08-14] MEDS: SODIUM CHLOR 0.9% PF (SALINE LOCK) 10ML VIAL/SYR IV SCH (22:02)
[2024-08-14] MEDS: SODIUM CHLORIDE 0.9% 1,000 ML IV SCH (22:16)
--- NOTE | 2024-08-14 22:17 | DVHHPRES ---
History of Present Illness Resident Creating Document: KENDALL ROBLES RESIDENT History of Present Illness ARIN CHAIDEZ is a 34 years old female with no significant PMH presented to the ED with the chief complaints of severe epigastric pain since morning. Patient reported yesterday after she ate pizza she has been having watery diarrhea without blood, but today morning she developed severe epigastric pain 10/10 intensity, crampy spread to entire abdomen associated with nausea vomiting and chills which prompted her to visit ED. on my assessment patient denies fever, chest pain, shortness of breath, fatigue, weakness and other associated symptoms. Patient refused recent travel, sick contacts. Past Medical History HLD Past Surgical History: None Family History: None Past Social History Lives with roommate. Occasional drinking but denies smoking and other drug abuse Review of Systems Constitutional: Yes: Chills; No: Fever, Sweats, Weakness, Malaise, Other Eyes: No: Pain, Vision change, Conjunctivae inflammation, Eyelid inflammation, Other, Redness ENT: No: Ear pain, Ear discharge, Nose pain, Nose discharge, Nose congestion, Mouth pain, Mouth swelling, Throat pain, Throat swelling, Other Respiratory: No: Cough, Dry, Shortness of breath, SOB with excertion, Wheezing, Hemoptysis, Pleuritic Pain, Sputum, Wheezing, Other Cardiovascular: No: Chest Pain, Palpitations, Orthopnea, Paroxysmal Noc. Dyspnea, Edema, Lt Headedness, Other Gastrointestinal: Nausea, Vomiting, Abdominal Pain, Diarrhea Genitourinary: No Dysuria, No Frequency, No Incontinence, No Hematuria, No Retention, No Other Musculoskeletal: No: other, neck pain, shoulder pain, arm pain, back pain, hand pain, leg pain, foot pain Skin: No: Rash, Lesions, Jaundice, Bruising, Other Neurological: No: Weakness, Numbness, Incoordination, Change in speech, Confusion, Seizures, Other Allergies: Coded Allergies: NO KNOWN ALLERGIES (Unverified , 10/29/19) Medications Current Medications Medications Dose Ordered Sig/Snow Route Start Time Stop Time Status Last Admin Dose Admin Sodium Chloride 10 ml Q8HR IV 08/14/24 22:00 08/14/24 22:02 10 ML Sodium Chloride 1,000 ml @ 70 mls/hr [id number] IV 08/14/24 21:45 Acetaminophen 325 mg Q4HP PRN PO 08/14/24 21:45 Ondansetron HCl 4 mg Q4HP PRN IV 08/14/24 21:45 Morphine Sulfate 2 mg Q4HPRN PRN IV 08/14/24 21:45 08/14/24 22:02 2 MG Nitroglycerin 0.4 mg Q5MINP PRN SL 08/14/24 21:45 Morphine Sulfate 2 mg Q30M PRN IV 08/14/24 21:45 Exam Vital Signs Vital Signs Date Time Temp Pulse Resp B/P (MAP) Pulse Ox O2 Delivery O2 Flow Rate FiO2 08/14/24 22:02 95 18 128/79 08/14/24 20:47 98.2 96 98.2 08/14/24 19:30 Room Air* 0 21 Exam Pt is lying on bed General Appearance: Alert, Oriented X3, Cooperative, in moderate distress HEENT: Atraumatic, Mucous membranes moist/ dry Respiratory: Clear to auscultation, Normal air movement, No added sounds Cardiovascular: Regular rate, Normal S1, Normal S2, No murmurs Abdominal: Diffuse abdominal tenderness Active bowel sounds, Soft, no distention, Extremities: No edema, Normal pulses, No tenderness/swelling Skin: No Significant rash, Neuro: Normal speech, sensorimotor deficits none Psych/Mental Status: Mental status NL, Mood NL Nurse was there as sharperone during examination Labs/Xrays Labs Test 08/14/24 21:45 08/14/24 16:32 08/14/24 12:35 08/14/24 12:07 Range/Units Lipase 1517 H 12-53 U/L Differential Total Cells Counted 100.0 100 Neutrophils % (Manual) 46 37.0-80.0 Band Neutrophils % (Manual) 0 Lymphocytes % (Manual) 46 10.0-50.0 Monocytes % (Manual) 5 0-12 Eosinophils % (Manual) 3 0-7 Basophils % (Manual) 0 0.0-2.0 Metamyelocytes % (manual) 0 Myelocytes % (Manual) 0 Promyelocytes % (Manual) 0 Blast Cells % (Manual) 0 Reactive Lymphocytes 0 Platelet Estimate Adequate Stomatocytes Few Urine Color Colorless Yellow Urine Clarity Clear Clear Urine pH 5.5 5.0-9.0 Urine Specific [place] 1.013 1.001-1.035 Urine Protein Negative Negative Urine Ketones Negative Negative Urine Blood 1+ H Negative /uL Urine Nitrite Negative Negative Urine Bilirubin Negative Negative Urine Urobilinogen Normal Negative mg/dL Urine Leukocyte Esterase Negative Negative /uL Urine RBC 3 0 - 4 /hpf Urine WBC <1 0 - 5 /hpf Urine Squamous Epithelial Cells Few <5 /hpf Urine Bacteria Few H None Seen /hpf Urine Glucose Normal Normal mg/dL Assessment/Plan Assessment/Plan # acute pancreatitis # Rule out SIRS -elevated lipase -CT abdominal pelvis showed diffuse peripancreatic fat stranding -currently NPO -giving IVF 70 mL/hour -morphine and Zofran as needed -ordered lipid panel # ? Gastroenteritis -currently on IVF -ordered stool cultures # Dehydration -currently on IVF # hyponatremia -monitor lab # Hepatic steatosis -evident on CT # colonic diverticulosis -advised dietary modification # right ovarian cyst -evident on CT abdominal pelvis -outpatient OBGYN follow up No VTE PPX since patient is ambulatory Protonix NPo except ice chips Reconciled home meds Goals of care discussed with the patient and more than 27 minutes: Full code Case management discussed with Dr. Ramirez, patient and nurse Plan discussed with: Patient My Orders Orders - KENDALL ROBLES RESIDENT Procedure Category Date Status Time Admit ADMIT 08/14/24 Transmitted 21:34 Allergies CARLITA 08/14/24 In Process 21:34 Code Status CODE 08/14/24 Transmitted 21:34 Sodium Chloride Lock PHA 08/14/24 In Process (Saline Lock Ns) 22:00 Sodium Chloride 0.9% PHA 08/14/24 In Process 21:45 Acetaminophen Tablet PHA 08/14/24 In Process (Tylenol Tablet) 21:45 Ondansetron Hcl PHA 08/14/24 In Process (Zofran) 21:45 Complete Blood Count LAB 08/15/24 Verified 04:00 Comprehensive LAB 08/15/24 Verified Metabolic Panel 04:00 Npo (Nothing By DIET 08/15/24 Transmitted Mouth) Diet Breakfast Morphine Sulfate PHA 08/14/24 In Process Injection 21:45 Nitroglycerin PHA 08/14/24 In Process Sublingual (Ntrostat 21:45 Morphine Sulfate PHA 08/14/24 In Process Injection 21:45 Oxygen By Nasal RT 08/14/24 Transmitted Cannula 21:34 Stat Ekg For Chest CARLITA 08/14/24 In Process Pain 21:34 Notify Of Changes CARLITA 08/14/24 In Process From Base 21:34 Pump Servicer Helper For CARLITA 08/14/24 In Process 24 Hours 21:34 Emergency Dysrhythmia CARLITA 08/14/24 In Process Protocol 21:34 Rhythm Strips Once [facility] 08/14/24 In Process Every Shift 21:34 Complete Blood Count LAB 08/14/24 In Process 21:34 Comprehensive LAB 08/14/24 In Process Metabolic Panel 21:34 Lipid Panel LAB 08/14/24 In Process 22:02 Blood Alcohol LAB 08/14/24 In Process 22:02 Hemoglobin A1c LAB 08/14/24 In Process 22:02 Drug Screen LAB 08/14/24 Logged 22:02 Vitamin D, 25-Hydroxy LAB 08/14/24 In Process 22:02 Vitamin B12 LAB 08/14/24 In Process 22:02 Thyroid Stimulating LAB 08/14/24 In Process Hormone 22:02 Stool Bacterial HEIDE 08/14/24 Logged Culture 22:02 Stool Wbc LAB 08/14/24 Logged 22:02 Ph Stool LAB 08/14/24 Logged 22:02 Lactic Acid W/ Reflex LAB 08/14/24 Logged Order 22:09 KENDALL ROBLES RESIDENT Aug 14, 2024 22:17
[2024-08-14 22:22] LABS: White Blood Cell 18.1 10^3/uL (4.4-10.8)
[2024-08-14 22:24] LABS: Hematocrit 37.8 % (36.0-46.0); Hemoglobin 14.7 g/dL (12.2-16.2); Mean Corpuscular Hemoglobin 32.3 pg (28.0-32.0); Mean Corpuscular Volume 83.2 fL (80.0-100.0); Platelet Count (auto) 275 10^3/uL (140-450); Red Blood Cells 4.55 10^6/uL (4.0-5.20); Red Cell Distribution Width 14.6 % (11.8-14.3)
[2024-08-14 22:25] LABS: Mean Corpuscular Hgb Conc. 38.8 g/dL (32.0-36.0)
[2024-08-14 22:30] LABS: Basophils % (manual) 0 (0.0-2.0); Blast Cells 0; Eosinophils % (manual) 0 (0-7); Metamyelocytes % 0; Myelocytes % 0; Promyelocytes % 0; Reactive Lymphocytes 0
[2024-08-14] MEDS: PANTOPRAZOLE 40 MG/10 ML VIAL INJ IV ONE (22:32)
[2024-08-14 22:49] LABS: Band Neutrophils % (manual) 8; Lymphocytes % (manual) 9 (10.0-50.0); Monocytes % (manual) 7 (0-12); Platelet Estimate Adequate
[2024-08-14 23:01] LABS: Lactic Acid w/Reflex 2.2 mmol/L (0.4-2.0)
[2024-08-14 23:07] VITALS: PULSE 99; RESP 18; O2SAT 93
[2024-08-14] MEDS ORDERED: ATOR40TA52 PO (23:27)
[2024-08-14 23:43] LABS: Blood Alcohol 3.4 mg/dL (<10)
[2024-08-14 23:44] LABS: Cholesterol 398 mg/dL (< 200); HDL Cholesterol 21 mg/dL (40-59)
[2024-08-14 23:49] LABS: Alanine Aminotransferase 21 U/L (7-40); Albumin 4.1 g/dL (3.2-4.8); Alkaline Phosphatase 52 U/L (46-116); Anion Gap 22.00001 (5-15); Aspartate Aminotransferase 20 U/L (13-40); BUN/Creatinine Ratio 15.5 (10.0-20.0); Blood Urea Nitrogen 11 mg/dL (9-23); Calcium 7.1 mg/dL (8.7-10.4); Chloride 102 mmol/L (98-107); Glucose 157 mg/dL (74-106); Potassium 4.1 mmol/L (3.5-5.1); Sodium 134 mmol/L (136-145)
[2024-08-14 23:50] LABS: Bilirubin, Total 0.5 mg/dL (0.2-1.0)
[2024-08-14 23:51] LABS: Triglycerides 2904 mg/dL (< 150)
[2024-08-14 23:54] LABS: Carbon Dioxide < 10 mmol/L (20-31)
[2024-08-15] VITALS (14 sets, daily range): BP systolic 101–143; BP diastolic 63–82; PULSE 101–130; RESP 16–43; TEMP 97.9–98.6; O2SAT 93–98
[2024-08-15] MEDS: LACTATED RINGER'S 1,000 ML IV ONE
[2024-08-15] MEDS: SODIUM CHLORIDE 0.9% 1,000 ML IV SCH
[2024-08-15] MEDS ORDERED: MORPHINE SULFATE 4 MG/ML SYR/VIAL IV PRN (01:30)
[2024-08-15] MEDS: MORPHINE SULFATE 4 MG/ML SYR/VIAL IV PRN (04:30)
[2024-08-15 07:41] LABS: Basophils # (auto) 0.2 10 ^3/uL (0-0.2); Basophils % (auto) 1.2 % (0.0-2.0); Eosinophils # (auto) 0 10 ^3/uL (0-0.8); Eosinophils % (auto) 0.1 % (0.0-7.0); Hematocrit 42.6 % (36.0-46.0); Hemoglobin 14.9 g/dL (12.2-16.2); Lymphocytes # (auto) 1.1 10 ^3/uL (0.4-5.4); Lymphocytes % (auto) 6.7 % (10.0-50.0); Mean Corpuscular Hemoglobin 29.4 pg (28.0-32.0); Monocytes # (auto) 0.6 10 ^3/uL (0-1.3); Monocytes % (auto) 3.7 % (0.0-12.0); Neutrophils # (auto) 14.4 10 ^3/uL (1.6-8.6); Neutrophils % (auto) 88.3 % (37.0-80.0); Platelet Count (auto) 283 10^3/uL (140-450); Red Blood Cells 5.07 10^6/uL (4.0-5.20); Red Cell Distribution Width 14.8 % (11.8-14.3); White Blood Cell 16.3 10^3/uL (4.4-10.8)
[2024-08-15 08:18] LABS: Chloride 100 mmol/L (98-107); Sodium 130 mmol/L (136-145)
[2024-08-15 08:21] LABS: Potassium 4.1 mmol/L (3.5-5.1)
[2024-08-15 08:26] LABS: Glucose 206 mg/dL (74-106)
[2024-08-15 08:28] LABS: Alanine Aminotransferase 18 U/L (7-40); Albumin 3.7 g/dL (3.2-4.8); Alkaline Phosphatase 39 U/L (46-116); Anion Gap 20.00001 (5-15); Aspartate Aminotransferase 45 U/L (13-40); BUN/Creatinine Ratio 10.3 (10.0-20.0); Bilirubin, Total 0.7 mg/dL (0.2-1.0); Blood Urea Nitrogen 7 mg/dL (9-23); Total Protein 6.4 g/dL (5.7-8.2)
[2024-08-15] MEDS ORDERED: SODIUM CHLORIDE 0.9% 1,000 ML IV SCH (08:30)
[2024-08-15] MEDS: INSULIN LANTUS (GLARGINE) 1 /0.01ml (100units/ml) SC ONE (08:30)
[2024-08-15] MEDS ORDERED: DEXTROSE (50%) 50ML SYRG IV PRN ×2 (08:30→12:45)
[2024-08-15 08:31] LABS: Calcium 5.2 mg/dL (8.7-10.4)
[2024-08-15 08:32] LABS: Carbon Dioxide < 10 mmol/L (20-31)
--- NOTE | 2024-08-15 08:41 | DVHPNRES ---
Progress Note Objective vital signs Vital Sign Date Time Temp Pulse Resp B/P (MAP) Pulse Ox O2 Delivery O2 Flow Rate FiO2 08/15/24 05:00 108 18 102/66 08/14/24 23:07 93 Room Air* 0 21 08/14/24 20:47 98.2 98.2 Total Intake and Output 08/14/24 08/14/24 08/15/24 15:00 23:00 07:00 Intake Total 0 ml Balance 0 ml medications Current Medications Medications Dose Ordered Sig/Snow Route Start Time Stop Time Status Last Admin Dose Admin Sodium Chloride 10 ml Q8HR IV 08/14/24 22:00 08/15/24 05:54 10 ML Acetaminophen 325 mg Q4HP PRN PO 08/14/24 21:45 Ondansetron HCl 4 mg Q4HP PRN IV 08/14/24 21:45 Nitroglycerin 0.4 mg Q5MINP PRN SL 08/14/24 21:45 Morphine Sulfate 2 mg Q30M PRN IV 08/14/24 21:45 Pantoprazole Sodium 40 mg DAILY IV 08/15/24 10:00 Ergocalciferol 50,000 unit Q7D PO 08/15/24 10:00 Acetaminophen/ Hydrocodone Bitart 1 tab Q4HP PRN PO 08/15/24 01:15 Morphine Sulfate 3 mg Q4HPRN PRN IV 08/15/24 01:30 08/15/24 04:30 3 MG Insulin Human (Reg)/Sodium Chloride 100 ml @ 0.5 mls/hr Q24H IV 08/15/24 08:30 UNV Diagnostic Test (Pha) 1 strip Q90MIN 08/15/24 09:00 UNV Dextrose 50 ml PRN PRN IV 08/15/24 08:30 UNV Insulin Glargine 15 units DAILY SC 08/16/24 10:00 UNV Calcium Gluconate/ Sodium Chloride 50 ml @ 100 mls/hr Q30M IV 08/15/24 08:45 08/15/24 10:14 UNV Vancomycin HCl 0 ml @ 0 mls/hr UD IV 08/15/24 08:45 UNV Cefepime HCl 50 ml @ 12.5 mls/hr Q8HR IV 08/15/24 14:00 UNV Lactated Ringer's 1,000 ml @ 150 mls/hr Q6H40M IV 08/15/24 08:45 UNV laboratory and microbiology Laboratory Tests 08/15/24 07:00 Test 08/15/24 07:00 Range/Units Serum Glucose 206 H 74-106 mg/dL My Orders My Orders Orders - JOVAN LARA RESIDENT Procedure Category Date Status Time Acetone LAB 08/15/24 Logged 08:26 Insulin Drip 100 PHA 08/15/24 Logged Unit/100ml (Myxredlin 08:30 Glucose Blood PHA 08/15/24 Logged (Accu-Chek Comfort 09:00 D/C All Diabetic CARLITA 08/15/24 In Process Medications 08:26 Insulin Drip Protocol CARLITA 08/15/24 In Process 08:26 Dextrose 50% Syringe PHA 08/15/24 Logged 08:30 Insulin Lantus PHA 08/15/24 Logged (Glargine) (Lantus) 08:30 Insulin Lantus PHA 08/16/24 Logged (Glargine) (Lantus) 10:00 Sodium Bicarb PHA 08/15/24 Logged 50meq/50ml Vial 08:45 Calcium Gluc PHA 08/15/24 Logged 1,000mg/50ml-Ns 08:45 Vancomycin Per PHA 08/15/24 Logged Pharmacy 08:45 Cefepime 1gm/ 50ml PHA 08/15/24 Logged (Maxipime 1gm/50ml) 14:00 Lactated Ringer's PHA 08/15/24 Logged 08:45 Lactated Ringer's PHA 08/15/24 Logged 08:45 Blood Culture HEIDE 08/15/24 Transmitted 08:39 JOVAN LARA RESIDENT Aug 15, 2024 08:41
[2024-08-15] MEDS ORDERED: LACTATED RINGER'S 1,000 ML IV SCH ×2 (08:45→12:30)
[2024-08-15] MEDS ORDERED: VANCOMYCIN PER PHARMACY 0 MG IV SCH (08:45)
[2024-08-15] MEDS: PANTOPRAZOLE 40 MG/10 ML VIAL INJ IV SCH (08:46)
[2024-08-15] MEDS: ERGOCALCIFEROL 50,000 UNIT(1.25MG) CAP PO SCH (08:53)
[2024-08-15] MEDS: HYDROcodone-ACET 10/325MG TAB PO PRN (08:54)
[2024-08-15] MEDS: ACCU-CHEK COMFORT CURVE STRIP VI SCH ×3 (09:00→23:19)
[2024-08-15] MEDS: CALCIUM GLUC 1,000mg/50ml-NS 50 ML IV SCH ×2 (09:12→18:45)
[2024-08-15] MEDS: LACTATED RINGER'S 1,800 ML IV ONE ×2 (09:14→12:15)
[2024-08-15] MEDS: SODIUM BICARB 8.4% 50Meq/50ml SYR Vial IV ONE (09:43)
[2024-08-15] MEDS: CEFEPIME 1GM/ 50ML 50 ML IV ONE (09:45)
[2024-08-15] MEDS: CALCIUM GLUC 1,000mg/50ml-NS 50 ML IV ONE (12:05)
[2024-08-15] MEDS ORDERED: KETOROLAC TROMETH 30 MG/ML 1ML VIAL IV PRN (12:45)
[2024-08-15 13:55] LABS: Basophils # (auto) 0.2 10 ^3/uL (0-0.2); Basophils % (auto) 1.3 % (0.0-2.0); Eosinophils # (auto) 0 10 ^3/uL (0-0.8); Hematocrit 41.8 % (36.0-46.0); Hemoglobin 14.6 g/dL (12.2-16.2); Lymphocytes # (auto) 1.3 10 ^3/uL (0.4-5.4); Lymphocytes % (auto) 9.2 % (10.0-50.0); Mean Corpuscular Hemoglobin 28.9 pg (28.0-32.0); Mean Corpuscular Volume 82.5 fL (80.0-100.0); Monocytes # (auto) 0.6 10 ^3/uL (0-1.3); Monocytes % (auto) 4.3 % (0.0-12.0); Neutrophils # (auto) 12.1 10 ^3/uL (1.6-8.6); Neutrophils % (auto) 85.2 % (37.0-80.0); Nucleated Red Blood Cells % 0.1 %; Platelet Count (auto) 277 10^3/uL (140-450); Red Blood Cells 5.07 10^6/uL (4.0-5.20); Red Cell Distribution Width 15.8 % (11.8-14.3); White Blood Cell 14.2 10^3/uL (4.4-10.8)
[2024-08-15] MEDS: FOLIC ACID 1 MG, MAGNESIUM SULF SDV 50% 8 MEQ, MULTIPLE VITAMIN 10 ML, THIAMINE INJ 100... INJ SCH (14:00)
[2024-08-15] MEDS: POTASSIUM CHLORIDE 20 MEQ in D5W/LACTATED RINGERS 1,000 ML IV SCH (14:15)
[2024-08-15] MEDS: INSULIN DRIP 100 UNIT/100ML 100 ML IV SCH ×2 (14:45→18:38)
[2024-08-15] MEDS: KETOROLAC TROMETH 30 MG/ML 1ML VIAL IV PRN (15:02)
[2024-08-15] MEDS: VANCOMYCIN 1.75GM/350ML 350 ML IV ONE (15:08)
[2024-08-15] MEDS ORDERED: INSULIN DRIP 100 UNIT/100ML 100 ML IV SCH (16:15)
[2024-08-15 16:38] LABS: Chloride 101 mmol/L (98-107); Sodium 129 mmol/L (136-145)
[2024-08-15 16:39] LABS: Anion Gap 18.00001 (5-15)
[2024-08-15 16:44] LABS: Glucose 215 mg/dL (74-106)
--- NOTE | 2024-08-15 16:44 | CODING ---
Date of Service: Aug 15, 2024 Billing Provider: MARY FERMIN MD Common Visit Codes: NOT BILLABLE Coding Comment Comment Patient with pancreatitis 2/2 hypertriglyceridemia Start insulin drip on 0.1 units/kg/hr start d5LR+K at 200cc/hr FS q2hr Do not change insulin drip rate if glucose between 180-250 -> continue current rate if glucose above 250 -> half the glucose rate if glucose bellow 180 -> double glucose rate or go to d10 inform resident for persistent hypoglycemia MARY FERMIN MD Aug 15, 2024 16:44
[2024-08-15 16:45] LABS: BUN/Creatinine Ratio 11.7 (10.0-20.0); Blood Urea Nitrogen 9 mg/dL (9-23); Potassium 4.8 mmol/L (3.5-5.1)
[2024-08-15] MEDS: CEFEPIME 1GM/ 50ML 50 ML IV SCH (16:45)
[2024-08-15 16:49] LABS: Carbon Dioxide < 10 mmol/L (20-31)
--- NOTE | 2024-08-15 17:50 | DVH ---
EXAMINATION: AP portable chest radiograph CLINICAL HISTORY: dyspnea COMPARISON: CXRP on DOS: 07/11/22 FINDINGS: Lead wires overlie the thorax Streaky opacities in the right lung base with elevation of the right hemidiaphragm. Left lung is rela tively clear. No definite pleural effusions or pneumothorax. The cardiomediastinal silhouette appear s within normal limits given technique. IMPRESSION: Atelectasis, scarring and/or infiltrates in the right lung base. Please correlate for infection.
[2024-08-15] MEDS: MORPHINE SULFATE INJ 2 MG/ml SYRG IV ONE (18:40)
--- NOTE | 2024-08-15 18:43 | DVHSR ---
APPROVED REPORT EXAM: Two-dimensional and M-mode echocardiogram with Doppler and color Doppler. Blood Pressure: 130/82 mmHg INDICATION Frequent sinus pauses RISK FACTORS Height: 66, Weight: 151 DIMENSIONS LVDd3.8 (3.8-5.7cm)LA (2D) (1.9-4.0cm)Aortic Root2.9 (2.0-3.7cm) LVDs2.6 (2.5-4.0cm)LA (MM) (1.9-4.0cm)Aortic Cusp Exc1.9 (1.5-2.0cm) EF (%) 60.0 (55-70%)Rt. Atrium (1.9-4.0cm)Asc. Aorta cm Mitral Valve MitralMitral Stenosis E/A ratio0.02D MVAcm2 Aortic Valve Aortic ValveAortic Stenosis LVOT Diameter2.2 (1.8-2.4cm)Doppler AVAcm2 Other Information Technically limited study due to body habitus, patient position, patient screaming in pain and was b reathing hard. Was non compliant with direction. Conclusion Normal left ventricular size and dimension. Normal left ventricular systolic function estimated ejec tion fraction 55%. There is a grade 1 diastolic dysfunction. Normal right ventricular size and dimension. Normal right ventricular systolic function. Normal biatrial size and dimension. Normal aortic valve structure and function. Normal mitral valve structure and function. Normal tricuspid valve structure and function. The pulmonary valve is grossly normal. No pericardial effusion. Normal
[2024-08-15 18:50] LABS: Amphetamine Screen, Urine Neg (NEGATIVE); Barbiturate Scree,Urine Neg (NEGATIVE); Benzodiazephine Screen, Urine Neg (NEGATIVE); Cannabinoid Screen, Urine Neg (NEGATIVE); Cocaine Screen, Urine Neg (NEGATIVE); Opiate Scree,Urine Pos (NEGATIVE); Phencyclidine Screen, Urine Neg (NEGATIVE)
[2024-08-15 20:44] LABS: Lactic Acid w/Reflex 2.7 mmol/L (0.4-2.0)
--- NOTE | 2024-08-15 21:01 | DVHPNRES ---
Progress Note Date Seen: Aug 15, 2024 Resident Creating Document: JOVAN LARA RESIDENT Has the PT tested + for MRSA If YES, has PT been informed?: No Medical Necessity Reason Pt with a Central, PICC or Fol: No Subjective Review of Systems Saw the patient multiple times during the floor and ICU course of treatment. Questions concerns answered. Patient reports: No new complaints, Feels better Changes from previous H/P or p: No Changes Review of Systems: HEENT:Abnormal (Dry mouth), CVS:Abnormal (Tachycardia sinus,), RESPIRATORY:Abnormal (Tachypnea likely patient is trying to washout CO2, at this point no noted respiratory fatigue), GI:Abnormal (Abdominal pain, no BS, last bowel movement 2 days back, as per patient on passing flatus. Pain with minimal movement), :Abnormal (Patient is on day 3 of periods with continuous bleeding), MSK:Normal, NEURO:Normal Objective vital signs Vital Sign Date Time Temp Pulse Resp B/P (MAP) Pulse Ox O2 Delivery O2 Flow Rate FiO2 08/15/24 18:40 127 30 143/78 08/15/24 18:00 94 08/15/24 12:19 97.9 97.9 08/15/24 08:00 Room Air* 0 21 Total Intake and Output 08/14/24 08/14/24 08/15/24 15:00 23:00 07:00 Intake Total 0 ml Balance 0 ml medications Current Medications Medications Dose Ordered Sig/Snow Route Start Time Stop Time Status Last Admin Dose Admin Sodium Chloride 10 ml Q8HR IV 08/14/24 22:00 08/15/24 14:00 10 ML Acetaminophen 325 mg Q4HP PRN PO 08/14/24 21:45 Ondansetron HCl 4 mg Q4HP PRN IV 08/14/24 21:45 Pantoprazole Sodium 40 mg DAILY IV 08/15/24 10:00 08/15/24 08:46 40 MG Ergocalciferol 50,000 unit Q7D PO 08/15/24 10:00 08/15/24 08:53 50,000 UNIT Vancomycin HCl 0 ml @ 0 mls/hr UD IV 08/15/24 08:45 Cefepime HCl 50 ml @ 12.5 mls/hr Q8HR IV 08/15/24 15:00 08/15/24 16:45 12.5 MLS/HR Ketorolac Tromethamine 15 mg Q6HPRN PRN IV 08/15/24 12:45 08/20/24 12:44 08/15/24 15:02 15 MG Dextrose 50 ml UD PRN IV 08/15/24 12:45 Folic Acid 1 mg/ Magnesium Sulfate 8 meq/ Multivitamins 10 ml/Thiamine HCl 100 mg/Sodium Chloride 1,013.2 ml @ 126.247 mls/hr DAILY@1800 INJ 08/15/24 14:00 Potassium Chloride 20 meq/ Dextrose/Lactated Ringer's 1,010 ml @ 200 mls/hr Q5H3M IV 08/15/24 14:15 08/15/24 19:27 200 MLS/HR Vancomycin HCl 200 ml @ 200 mls/hr Q12H IV 08/16/24 05:00 Insulin Human (Reg)/Sodium Chloride 100 ml @ 3 mls/hr Q24H IV 08/15/24 18:15 08/15/24 18:38 3 MLS/HR Magnesium Sulfate/ Dextrose 100 ml @ 100 mls/hr Q1HR IV 08/15/24 19:00 08/15/24 20:59 Diagnostic Test (Pha) 1 strip Q1HR 08/15/24 20:30 UNV Enoxaparin Sodium 40 mg DAILY SC 08/16/24 10:00 UNV Examination: GENERAL:Normal, HEENT:Normal, NECK:Normal, LUNGS:Abnormal (Bilateral basal rales, low air entry.), CVS:Normal, ABDOMEN:Abnormal (Diffuse tenderness, absent bowel sounds, oral mucosa dry, mildly distended abdomen, no rebound tenderness, McBurney's, CV angle tenderness, Meza's point, Rovsing all negative. No signs of guarding), MSK:Normal, SKIN:Normal, NEURO:Normal, :Abnormal (Deferred, as per patient and female nurse staff per vaginal clots noted.) laboratory and microbiology Laboratory Tests 08/15/24 16:12 08/15/24 13:25 Test 08/15/24 16:12 Range/Units Serum Glucose 215 H 74-106 mg/dL Labs and/or images reviewed: Labs reviewed by me, Image(s) reviewed by me Problem List/Assessment/Plan Problem List/Assessment/Plan Hospital course: Alejandra Ang, a 34-year-old female with a history of hyperlipidemia (HLD) but no significant past medical history, presented to the emergency department with severe epigastric pain rated 10/10, which began this morning. She reported having watery diarrhea since eating pizza yesterday, and today developed crampy pain spreading throughout her abdomen, along with nausea, vomiting, and chills. She denies fever, chest pain, shortness of breath, fatigue, and weakness. family history positive for hypertriglyceridemia in paternal side With father affected. Alejandra lives with a roommate, occasionally drinks alcohol, but denies smoking and drug abuse. She has no past surgical or family history and no recent travel or sick contacts. Poor historian but she Noted previous extensive skin rash/ allergy to fenofibrate and presently on atorvastatin 40 mg daily only. toxicology unremarkable, UA negative, ABG shows signs of anion gap metabolic acidosis appropriately compensated by tachypnea and tachycardia. Patient is decided to transferred to ICU for higher level of care and close monitoring. # acute pancreatitis: likely due to hypertriglyceridemia with TG at 2900, likely due to untreated hypertriglyceridemia familial type. NPO, aggressive IV fluid, IV pain management, symptomatic management. Close monitoring in the ICU. If the patient develops surgical abdomen ( guarding, rigidity, pain out of proportion) please check upright CXR, for intra-abdominal viscus rupture, check for repeat lactate, labs, repeat CT with contrast/ ultrasound to rule out cirrhosis/ surgical complication needs urgent surgical consult. as needed nausea management with IV ondansetron. Ruling out obstruction with right upper quadrant ultrasound. noted elevated level of alcohol, which could be potential trigger as well. Q 12-24 hours of TG follow up. # Severe hypertriglyceridemia: patient had known history of hypertriglyceridemia, likely familial type. Presented with 2900, on IV insulin, ( Started with 0.05-0.1 units per kg per hour, presumably on 3 units/kg per hour) discussed with ICU, pharmacist, on-call hospitalist and resident team with close follow up with the hospital protocol. avoid hypoglycemia with continuous IV D5 with potassium 20 mEq. Patient NPO we will try to keep the BG above 150. If patient develops hypoglycemia 1st we will try changing the D5> to higher rate, and then possibly to D10 if necessary. Close follow up of potassium and as needed supplementation as high possibility of intracellular movement with insulin drip. close BG monitoring Q1 hour. # Familial hypertriglyceridemia, dyslipidemia: Total cholesterol and TG high with normal HbA1c. Patient is to follow with a high intensity statin with 80 mg atorvastatin daily for elevated cardiac/ excluded coronary atherosclerotic risk. As patient is allergic to ezetimibe, we will think of alternative long-term management along with niacin, [place] fatty acid, oral esters, other outpatient treatments, possible biologics. Bedside counseling done. # severe hypocalcemia: Normal albumin, normal protein with calcium trending down rapidly, 9.1> 7.1> 5.2> 5.0, no signs of MSK or neurological complication yet noted. Q6 hour serum calcium to follow up. Continue Ringer lactate, IV calcium supplement as needed. Continue the patient on telemetry close monitoring. # Severe SIRS Response: Less likely sepsis, no known infectious process. Patient is allergic to vancomycin, only on IV cefepime at this point. We will discontinue antibiotics tomorrow if improvement hemoptysis. We will look for ARDS, respiratory fatigue, follow up ABG /VBG tomorrow. Chest x-ray unremarkable, patient is breathing in air comfortably. please recheck lactate. # anion gap metabolic acidosis, likely due to lactic acidosis: Follow lactate, cautious use of bicarb With close monitoring of respiratory functions. Close input output with Sparrow's catheter as painful for the patient to move with passing urine # bilateral atelectasis: CXR reveals, bilateral lower lung atelectasis noted. Pain control, when patient improves we will consider Q 1 incentive spirometry. # Mild hyponatremia 129: Likely multifactorial, asymptomatic, close follow up # hypomagnesemia : 1.3, IV replenishment non, repeat magnesium , correct with IV rider. # ppi prophylaxis: With IV pantoprazole daily # hypovitaminosis D: [place] [address] weekly # DVT Prophylaxis: overall sick patient, SOFA 2 points delma 4 starting dvt prophylaxis sc lovenox, close follow up with the CBC /platelets. # diet: NPO for now, banana bag to some extent might help. Discussed with Dr. Bedolla. Code status: Patient is full code. Goals of care discussion needed 41 minutes of complex discussion. Patient is JEHOVA's WITNESS. Strictly demanded avoidance of blood and blood related Components. Detailed sign-out given to ICU and overnight resident team's. [facility] hypertriglyceridemia protocol reviewed and shared with the team. Critical care time spent 49 minutes at bedside. Plan discussed with: Patient, Other (Parents, family, primary team, RN) My Orders My Orders Orders - JOVAN LARA RESIDENT Procedure Category Date Status Time D/C All Diabetic CARLITA 08/15/24 In Process Medications 08:26 Insulin Drip Protocol CARLITA 08/15/24 In Process 08:26 Vancomycin Per PHA 08/15/24 In Process Pharmacy 08:45 Cefepime 1gm/ 50ml PHA 08/15/24 In Process (Maxipime 1gm/50ml) 15:00 Blood Culture HEIDE 08/15/24 In Process 08:39 Transfer Orders XFER 08/15/24 Transmitted 11:28 Triglycerides LAB 08/16/24 Verified 04:00 Triglycerides LAB 08/17/24 Verified 04:00 Venous Blood Gas RT 08/15/24 Logged 14:00 Ketorolac Injection PHA 08/15/24 In Process (Toradol Injection) 12:45 Ketorolac Injection PHA 08/15/24 In Process (Toradol Injection) 12:45 Dextrose 50% Syringe PHA 08/15/24 In Process 12:45 Mrsa Screen HEIDE 08/15/24 In Process 13:32 Vancomycin 1gm/200ml PHA 08/16/24 In Process Premix 05:00 Vancomycin Per CARLITA 08/17/24 In Process Pharmacy Protoc 05:00 Vancomycin,Trough LAB 08/17/24 Verified 04:00 Insulin Drip 100 PHA 08/15/24 In Process Unit/100ml (Myxredlin 18:15 Magnesium Sulfate PHA 08/15/24 In Process 1gm/100ml 19:00 Lactic Acid W/ Reflex LAB 08/15/24 In Process Order 18:34 Gallbladder US 08/15/24 Logged 20:24 Enoxaparin Sodium PHA 08/16/24 Logged (Lovenox) 10:00 Labs/Diagnostic Data Laboratory Tests Test 08/15/24 19:58 08/15/24 19:33 08/15/24 18:27 08/15/24 17:32 Range/Units Lactic Acid Level 2.7 *H 0.4-2.0 mmol/L POC Glucose 177 H 194 H 70-106 mg/dl Urine Opiates Screen Pos NEGATIVE Urine Fentanyl Screen Neg NEGATIVE Urine Barbiturates Screen Neg NEGATIVE Urine Phencyclidine Screen Neg NEGATIVE Urine Amphetamines Screen Neg NEGATIVE Urine Benzodiazepines Screen Neg NEGATIVE Urine Cocaine Screen Neg NEGATIVE Urine Cannabinoids Screen Neg NEGATIVE Test 08/15/24 16:53 08/15/24 16:12 08/15/24 15:37 08/15/24 14:31 Range/Units POC Glucose 202 H 219 H 70-106 mg/dl Sodium Level 129 L 136-145 mmol/L Potassium Level 4.8 3.5-5.1 mmol/L Chloride Level 101 98-107 mmol/L Carbon Dioxide Level < 10 *L 20-31 mmol/L Anion Gap 18.45581 H 5-15 Blood Urea Nitrogen 9 9-23 mg/dL Creatinine 0.77 0.550-1.02 mg/dL Glomerular Filtration Rate Calc 105 >90 mL/min BUN/Creatinine Ratio 11.7 10.0-20.0 Serum Glucose 215 H 74-106 mg/dL Calcium Level 5.0 *L 8.7-10.4 mg/dL Magnesium Level 1.3 L 1.6-2.6 mg/dL Lactate Dehydrogenase 1370 H 120-246 U/L Beta HCG, Quantitative 0.3 L 1.5-4.2 mIU/mL Blood Gas Specimen Type Venous Blood Gas Sample Site Vbg - n/a Blood Gas Patient Temperature 37.0 Arterial Blood Date Drawn [id number] Homer Test N/a Venous Blood pH 7.412 7.320-7.430 Venous Blood pCO2 at Patient Temp 31.9 L 38.0-54.0 mmHg Venous Blood pO2 at Patient Temp 50.2 H 23.0-48.0 mmHg Venous Blood HCO3 19.9 L 22.0-29.0 mmol/L Venous Blood Base Excess -3.6 L -2.0-3.0 mmol/L Blood Gas Modality Nasal cannula FiO2 % 28.0 Test 08/15/24 14:21 08/15/24 13:25 08/15/24 12:35 08/15/24 07:00 Range/Units POC Glucose 157 H 161 H 70-106 mg/dl White Blood Count 14.2 H 16.3 H 4.4-10.8 10^3/uL Red Blood Count 5.07 5.07 4.0-5.20 10^6/uL Hemoglobin 14.6 14.9 12.2-16.2 g/dL Hematocrit 41.8 42.6 # 36.0-46.0 % Mean Corpuscular Volume 82.5 84.0 80.0-100.0 fL Mean Corpuscular Hemoglobin 28.9 29.4 28.0-32.0 pg Mean Corpuscular Hemoglobin Concent 35.0 35.0 32.0-36.0 g/dL Red Cell Distribution Width 15.8 H 14.8 H 11.8-14.3 % Platelet Count 277 283 140-450 10^3/uL Mean Platelet Volume 7.7 7.9 6.9-10.8 fL Neutrophils (%) (Auto) 85.2 H 88.3 H 37.0-80.0 % Lymphocytes (%) (Auto) 9.2 L 6.7 L 10.0-50.0 % Monocytes (%) (Auto) 4.3 3.7 0.0-12.0 % Eosinophils (%) (Auto) 0.0 0.1 0.0-7.0 % Basophils (%) (Auto) 1.3 1.2 0.0-2.0 % Neutrophils # (Auto) 12.1 H 14.4 H 1.6-8.6 10 ^3/uL Lymphocytes # (Auto) 1.3 1.1 0.4-5.4 10 ^3/uL Monocytes # (Auto) 0.6 0.6 0-1.3 10 ^3/uL Eosinophils # (Auto) 0 0 0-0.8 10 ^3/uL Basophils # (Auto) 0.2 0.2 0-0.2 10 ^3/uL Nucleated Red Blood Cells 0.1 0.0 % Parathyroid Hormone (Intact) 346.2 H 18.4-80.1 pg/mL Sodium Level 130 L 136-145 mmol/L Potassium Level 4.1 3.5-5.1 mmol/L Chloride Level 100 98-107 mmol/L Carbon Dioxide Level < 10 *L 20-31 mmol/L Anion Gap 20.11634 H 5-15 Blood Urea Nitrogen 7 L 9-23 mg/dL Creatinine 0.68 0.550-1.02 mg/dL Glomerular Filtration Rate Calc 119 >90 mL/min BUN/Creatinine Ratio 10.3 10.0-20.0 Serum Glucose 206 H 74-106 mg/dL Calcium Level 5.2 *L 8.7-10.4 mg/dL Total Bilirubin 0.7 0.2-1.0 mg/dL Aspartate Amino Transferase (AST) 45 H 13-40 U/L Alanine Aminotransferase (ALT) 18 7-40 U/L Alkaline Phosphatase 39 L 46-116 U/L Total Protein 6.4 5.7-8.2 g/dL Albumin 3.7 3.2-4.8 g/dL Beta-Hydroxybutyric Acid 0.358 < 0.4 mmol/L Test 08/15/24 00:24 08/15/24 00:18 08/14/24 22:30 08/14/24 21:45 Range/Units Lactic Acid Level 2.4 *H 2.2 *H 0.4-2.0 mmol/L Blood Gas Specimen Type Arterial Blood Gas Sample Site Left radial Blood Gas Patient Temperature 37.0 Arterial Blood Date Drawn [id number] Arterial Blood pH 7.438 7.350-7.450 Arterial Blood Partial Pressure CO2 30.4 L 32.0-45.0 mmHg Arterial Blood Partial Pressure O2 72.0 L 83.0-108.0 mmHg Arterial Blood HCO3 20.1 L 21.0-28.0 mmol/L Arterial Blood Oxygen Saturation 94.6 94.0-98.0 % Arterial Blood Base Excess -3.0 L -2.0-3.0 mmol/L Arterial Blood Oxyhemoglobin 93.7 L 94.0-98.0 % Arterial Blood Carboxyhemoglobin 0.7 0.5-1.5 % Arterial Blood Methemoglobin 0.2 0.0-1.5 % Homer Test Yes Blood Gas Total Hemoglobin 13.60 12.0-16.0 g/dL Blood Gas Modality Room air FiO2 % 21.0 White Blood Count 18.1 #H 4.4-10.8 10^3/uL Red Blood Count 4.55 4.0-5.20 10^6/uL Hemoglobin 14.7 # 12.2-16.2 g/dL Hematocrit 37.8 36.0-46.0 % Mean Corpuscular Volume 83.2 80.0-100.0 fL Mean Corpuscular Hemoglobin 32.3 H 28.0-32.0 pg Mean Corpuscular Hemoglobin Concent 38.8 H 32.0-36.0 g/dL Red Cell Distribution Width 14.6 H 11.8-14.3 % Platelet Count 275 140-450 10^3/uL Mean Platelet Volume 7.4 6.9-10.8 fL Neutrophils (%) (Auto) 37.0-80.0 % Lymphocytes (%) (Auto) 10.0-50.0 % Monocytes (%) (Auto) 0.0-12.0 % Basophils (%) (Auto) 0.0-2.0 % Neutrophils # (Auto) 1.6-8.6 10 ^3/uL Lymphocytes # (Auto) 0.4-5.4 10 ^3/uL Monocytes # (Auto) 0-1.3 10 ^3/uL Differential Total Cells Counted 100.0 100 Neutrophils % (Manual) 76 37.0-80.0 Band Neutrophils % (Manual) 8 Lymphocytes % (Manual) 9 L 10.0-50.0 Monocytes % (Manual) 7 0-12 Eosinophils % (Manual) 0 0-7 Basophils % (Manual) 0 0.0-2.0 Metamyelocytes % (manual) 0 Myelocytes % (Manual) 0 Promyelocytes % (Manual) 0 Blast Cells % (Manual) 0 Reactive Lymphocytes 0 Platelet Estimate Adequate Sodium Level 134 L 136-145 mmol/L Potassium Level 4.1 3.5-5.1 mmol/L Chloride Level 102 98-107 mmol/L Carbon Dioxide Level < 10 *L 20-31 mmol/L Anion Gap 22.87372 H 5-15 Blood Urea Nitrogen 11 9-23 mg/dL Creatinine 0.71 0.550-1.02 mg/dL Glomerular Filtration Rate Calc 116 >90 mL/min BUN/Creatinine Ratio 15.5 10.0-20.0 Serum Glucose 157 H 74-106 mg/dL Hemoglobin A1c 4.9 <5.7 % A1C Calcium Level 7.1 L 8.7-10.4 mg/dL Total Bilirubin 0.5 0.2-1.0 mg/dL Aspartate Amino Transferase (AST) 20 13-40 U/L Alanine Aminotransferase (ALT) 21 7-40 U/L Alkaline Phosphatase 52 46-116 U/L Total Protein 7.0 5.7-8.2 g/dL Albumin 4.1 3.2-4.8 g/dL Triglycerides Level 2904 H < 150 mg/dL Cholesterol Level 398 H < 200 mg/dL LDL Cholesterol < 100 mg/dL HDL Cholesterol 21 L 40-59 mg/dL Vitamin B12 Level 945 H 211-911 pg/mL Vitamin D 25-Hydroxy 4.4 L 30.0-100 ng/mL Thyroid Stimulating Hormone (TSH) 0.74 0.55-4.78 uIU/mL Plasma/Serum Blood Alcohol 3.4 <10 mg/dL Coding Comment Comment I saw and evaluated the patient. I reviewed the residents note and agree with findings and plan as documented in the residents note. Please see my separate note JOVAN LARA Aug 15, 2024 21:01 MARY BEDOLLA MD Aug 15, 2024 21:17
--- NOTE | 2024-08-15 21:25 | CODING ---
Date of Service: Aug 15, 2024 Billing Provider: MARY FERMIN MD Common Visit Codes: [id number] INP/OBS CARE(HIGH), [id number] CARE 30-74 MIN Coding Comment Comment 34-year-old female with hyperlipidemia admitted for abdominal pain. Found to have severe hypertriglyceridemia and pancreatitis. Patient also worrisome features, hypercalcemia, HAGMA, tachycardia, leukocytosis. Decision made to transfer patient ICU Physical exam Alert, oriented x3 In acute distress PERRLA No JVD Speaking in full sentences Clear breath sounds bilaterally, tachypneic S1-S2 tachycardic Abdomen soft, extremely tender, no rebound, voluntary guarding Equal strength bilaterally on upper and lower extremities No lower extremity edema Lab Elevated lipase Hypocalcemia Hyponatremia Hyperglycemia Hypertriglyceridemia Low bicarb Elevated anion gap Elevated lactate Leukocytosis Imaging X-ray, right lung base atelectasis CT abdomen pelvis, [place] pancreatic fat stranding Assessment and plan Hypertriglyceridemia induced acute pancreatitis With worrisome features Systemic inflammatory response syndrome Can not rule out familial hyper lipidemia syndrome Atelectasis likely from splinting HAGMA Lactic acidosis Admit to ICU low threshold for intubation, watch for respiratory fatigue Start insulin drip at 0.05 units/kg/hr, keep rate fixed titrate D5W per glucose if glucose between 180-250 -> continue current rate if glucose above 250 -> half the glucose rate if glucose bellow 180 -> double glucose rate or go to d10 d50 push for glucose <90 If K is below 4.5 add 10 mEq / hr goal TG drop of 500 in 24 hr VBG q4 CMP q4 CBC q8 Lactate q8 fingerstick q2 generous IV hydration strict I&O gutierrez if needed midline insertion keep 2 large bore pIV keep NPO for now lovenox subQ IV protonix qd keep Ph 3 Mg 2 monitor for acute abdomen will hold plasmapheresis for now, if no improvement will get renal on board condition critical prognosis poor Total critical care time spent on this patient more than 30 minutes including evaluation, chart review, formulating plan and communication with team, excluding any procedures MARY FERMIN MD Aug 15, 2024 21:25
[2024-08-15] MEDS: MAGNESIUM SULFATE 1GM/100ML 100 ML IV SCH (21:29)
[2024-08-15 21:52] LABS: Hematocrit 38.1 % (36.0-46.0); Hemoglobin 13.2 g/dL (12.2-16.2); Mean Corpuscular Hemoglobin 28.7 pg (28.0-32.0); Mean Corpuscular Hgb Conc. 34.6 g/dL (32.0-36.0); Mean Corpuscular Volume 82.9 fL (80.0-100.0); Platelet Count (auto) 209 10^3/uL (140-450); Red Cell Distribution Width 14.9 % (11.8-14.3); White Blood Cell 10.2 10^3/uL (4.4-10.8)
[2024-08-15 22:02] LABS: Basophils % (manual) 0 (0.0-2.0); Blast Cells 0; Eosinophils % (manual) 0 (0-7); Myelocytes % 0; Promyelocytes % 0; Reactive Lymphocytes 0
[2024-08-15 22:13] LABS: Alanine Aminotransferase 11 U/L (7-40); Albumin 3.1 g/dL (3.2-4.8); Alkaline Phosphatase 32 U/L (46-116); Anion Gap 11 (5-15); Aspartate Aminotransferase 36 U/L (13-40); BUN/Creatinine Ratio 16.9 (10.0-20.0); Bilirubin, Total 0.9 mg/dL (0.2-1.0); Blood Urea Nitrogen 12 mg/dL (9-23); Calcium 6.3 mg/dL (8.7-10.4); Carbon Dioxide 17 mmol/L (20-31); Chloride 105 mmol/L (98-107); Glucose 179 mg/dL (74-106); Potassium 3.8 mmol/L (3.5-5.1); Sodium 133 mmol/L (136-145); Total Protein 5.6 g/dL (5.7-8.2)
[2024-08-15 22:15] LABS: Lactic Acid w/Reflex 2.4 mmol/L (0.4-2.0)
--- NOTE | 2024-08-15 23:19 | DVH ---
RIGHT UPPER QUADRANT ABDOMINAL ULTRASOUND CLINICAL HISTORY: Rule out stone in the gall bladder. COMPARISON: CT obtained earlier the same day TECHNIQUE: Grayscale and color Doppler ultrasound imaging of the right upper quadrant is performed. FINDINGS: Paper Gluing Operator reports that the patient refused supine positioning. Examination was performed in the rig ht lateral decubitus position. Pancreas: Obscured by artifact from bowel gas. Liver: No discrete hepatic lesions as visualized. Increased parenchymal echogenicity. The portal vei n appears patent. Gallbladder: No sizable, shadowing calculi noted. Obscured by artifact from bowel gas. Gallbladder wa ll thickening to approximately 1 cm. No sonographic Meza's sign elicited. Common bile duct: Nondilated. Right Kidney: Measures 11.2 cm in length. No hydronephrosis. Right upper quadrant Inferior vena cava: Visualized portions appear patent. IMPRESSION: Limited study due to patient positioning. Pancreas is not clearly visualized. Increased hepatic parenchymal echogenicity which is most commonly seen with fatty infiltration. Pleas e correlate clinically. Gallbladder wall thickening without evidence of cholelithiasis.
[2024-08-15 23:23] LABS: Band Neutrophils % (manual) 15; Lymphocytes % (manual) 19 (10.0-50.0); Monocytes % (manual) 6 (0-12)
[2024-08-15 23:24] LABS: Metamyelocytes % 1; Platelet Estimate Adequate; RBC Morphology Normal
[2024-08-15] MEDS: MORPHINE SULFATE INJ 2 MG/ml SYRG IV PRN (23:38)
[2024-08-16] VITALS (73 sets, daily range): BP systolic 98–209; BP diastolic 43–101; PULSE 96–146; RESP 16–65; TEMP 97.4–101.3; O2SAT 89–100
[2024-08-16] MEDS ORDERED: ACETAMINOPHEN 325 MG TAB PO SCH (00:15)
[2024-08-16] MEDS: KETOROLAC TROMETH 30 MG/ML 1ML VIAL IV ONE (00:34)
[2024-08-16 02:28] LABS: Alanine Aminotransferase 11 U/L (7-40); Albumin 2.9 g/dL (3.2-4.8); Alkaline Phosphatase 32 U/L (46-116); Anion Gap 8 (5-15); Aspartate Aminotransferase 33 U/L (13-40); Blood Urea Nitrogen 12 mg/dL (9-23); Carbon Dioxide 20 mmol/L (20-31); Chloride 106 mmol/L (98-107); Glucose 186 mg/dL (74-106); Potassium 3.8 mmol/L (3.5-5.1); Sodium 134 mmol/L (136-145)
[2024-08-16 02:29] LABS: Bilirubin, Total 0.9 mg/dL (0.2-1.0); Total Protein 5.3 g/dL (5.7-8.2)
[2024-08-16 03:28] LABS: Triglycerides 1741 mg/dL (< 150)
[2024-08-16] MEDS: MORPHINE SULFATE INJ 2 MG/ml SYRG IV PRN (03:31)
[2024-08-16 03:42] LABS: Calcium 5.4 mg/dL (8.7-10.4)
[2024-08-16] MEDS: VANCOMYCIN 1GM/250ML KIT 200 ML IV SCH (04:59)
[2024-08-16] MEDS: CALCIUM GLUC 1,000mg/50ml-NS 50 ML IV SCH ×2 (06:00→13:03)
[2024-08-16] MEDS: ACETAMINOPHEN IV 1000 MG/100ML (10MG/ML) IV ONE ×2 (06:18→18:53)
[2024-08-16] MEDS: KETOROLAC TROMETH 30 MG/ML 1ML VIAL IV SCH (06:24)
[2024-08-16 07:08] LABS: Alanine Aminotransferase 11 U/L (7-40); Albumin 2.9 g/dL (3.2-4.8); Alkaline Phosphatase 31 U/L (46-116); Anion Gap 8 (5-15); Aspartate Aminotransferase 39 U/L (13-40); Bilirubin, Total 0.8 mg/dL (0.2-1.0); Blood Urea Nitrogen 11 mg/dL (9-23); Carbon Dioxide 20 mmol/L (20-31); Chloride 106 mmol/L (98-107); Glucose 171 mg/dL (74-106); Potassium 4.2 mmol/L (3.5-5.1); Sodium 134 mmol/L (136-145); Total Protein 5.3 g/dL (5.7-8.2)
[2024-08-16 07:14] LABS: Basophils # (auto) 0 10 ^3/uL (0-0.2); Basophils % (auto) 0.5 % (0.0-2.0); Eosinophils # (auto) 0 10 ^3/uL (0-0.8); Eosinophils % (auto) 0.1 % (0.0-7.0); Hematocrit 34.6 % (36.0-46.0); Hemoglobin 11.8 g/dL (12.2-16.2); Lymphocytes # (auto) 1.2 10 ^3/uL (0.4-5.4); Lymphocytes % (auto) 14.9 % (10.0-50.0); Mean Corpuscular Hemoglobin 28.1 pg (28.0-32.0); Mean Corpuscular Volume 82.6 fL (80.0-100.0); Monocytes # (auto) 0.3 10 ^3/uL (0-1.3); Monocytes % (auto) 4.1 % (0.0-12.0); Neutrophils # (auto) 6.7 10 ^3/uL (1.6-8.6); Neutrophils % (auto) 80.4 % (37.0-80.0); Nucleated Red Blood Cells % 0.1 %; Platelet Count (auto) 204 10^3/uL (140-450); Red Blood Cells 4.19 10^6/uL (4.0-5.20); White Blood Cell 8.3 10^3/uL (4.4-10.8)
[2024-08-16 07:15] LABS: Calcium 5.2 mg/dL (8.7-10.4); Triglycerides 1513 mg/dL (< 150)
[2024-08-16 07:16] LABS: Lactic Acid w/Reflex 2.4 mmol/L (0.4-2.0)
[2024-08-16] MEDS: POTASSIUM CHL 20MEQ/100ML 100 ML IV ONE ×3 (08:22→22:14)
[2024-08-16] MEDS: DEXTROSE 10% 1,000 ML IV SCH (08:24)
[2024-08-16] MEDS ORDERED: INSULIN LANTUS (GLARGINE) 1 /0.01ml (100units/ml) SC SCH (10:00)
[2024-08-16] MEDS: ENOXAPARIN SOD 40 MG/0.4 ML SYRINGE SC SCH (10:15)
[2024-08-16] MEDS: CALCITRIOL 1 MCG/ML AMPULE IV ONE (10:45)
[2024-08-16] MEDS: ETOMIDATE (2MG/ML) 20ML VIAL IV ONE ×2 (11:27→11:34)
[2024-08-16] MEDS: MIDAZOLAM DRIP 50 mg/50mL 50 ML IV ONE (11:28)
[2024-08-16] MEDS: fentaNYL Drip 2500mCg/250mlNS 250 ML IV ONE (11:28)
[2024-08-16] MEDS: ROCURONIUM 10MG/ML 10ML VIAL IV ONE ×2 (11:28→11:34)
[2024-08-16] MEDS: fentaNYL Drip 2500mCg/250mlNS 250 ML IV SCH (11:39)
[2024-08-16] MEDS: MIDAZOLAM DRIP 50 mg/50mL 50 ML IV SCH (11:39)
[2024-08-16] MEDS: MAGNESIUM SULFATE 1GM/100ML 100 ML IV SCH (12:00)
--- NOTE | 2024-08-16 12:18 | DVH ---
CHEST RADIOGRAPH Indication:post intubation Technique: Single frontal view of the chest was obtained COMPARISON: XY CHEST PORTABLE on DOS: 08/15/24, CXRP on DOS: 07/11/22, CHEST PORTABLE on DOS: 07/11/22 FINDINGS: Lines and Tubes: Endotracheal tube and enteric catheter in satisfactory position. Lungs: Multifocal airspace disease. Pleura: No effusion. No pneumothorax. Cardiomediastinal contours: Unremarkable Bones: Unremarkable IMPRESSION: Lines and tubes in satisfactory position. Increased multifocal airspace disease.
--- NOTE | 2024-08-16 12:21 | DVHCONRES ---
Date Seen: Aug 16, 2024 Resident Creating Document: JHAJJ,SARPUNEET RESIDENT Referring Physician MD Graeme Reason for Consultation plasmapheresis for Hypertriglyceridemia with pancreatitis History of Present Illness Patient is a 34-year-old female with a past medical history of hyperlipidemia presented to the ED with a chief complaint of severe epigastric pain rated 10/10 radiating to the back which began on the morning of the day of admission. Patient reported watery diarrhea since 1 day prior to admission and started developing crampy abdominal pain which spread throughout her abdomen associated with nausea vomiting and chills. Patient denied fever chest pain shortness of breath fatigue weakness. Patient reports occasional alcohol drinking but denies smoking and drug use. On admission patient had elevated WBC count 14.4, sodium 133, serum carbon dioxide less than 10, anion gap 23, creatinine 0.77, GFR 105, lipase 980--> 1517, triglycerides 2900, lactic acid 2.2. Abdominal CT shows diffuse peripancreatic fat stranding without gross evidence of discrete pancreatic lesion or fluid collection, Hepatic steatosis, scattered colonic diverticula were seen. Past Medical History Hyperlipidemia Past Surgical History None reported Family History: Hypercholesterolemia G8 MOTHER G8 FATHER Social History Patient lives with a roommate. Occasional alcohol uses denies smoking and drug use Allergies: Coded Allergies: Fenofibrate (Verified Allergy, Intermediate, REDNESS/ITCHINESS, 08/15/24) Vancomycin (Verified Allergy, Intermediate, 08/15/24) FLUSHING/ GENERALIZED REDNESS Home Meds Reported Medications Atorvastatin Calcium (ATORVASTATIN CALCIUM) 40 Mg Tab, 1 TAB PO DAILY 08/14/24 Current Medications Current Medications Medications (Trade) Dose Ordered Sig/Snow Route PRN Reason Start Time Stop Time Status Last Admin Insulin Glargine (Lantus) 15 units DAILY SC 08/16/24 10:00 08/15/24 20:26 DC Cefepime HCl 50 ml @ 12.5 mls/hr Q8HR IV 08/15/24 15:00 08/16/24 08:36 DC 08/16/24 06:49 Lactated Ringer's 1,000 ml @ 200 mls/hr Q5H IV 08/15/24 12:30 08/15/24 13:32 DC Ketorolac Tromethamine (Toradol Injection) 15 mg Q6HPRN PRN IV MOD - SEVERE PAIN (4-10) 08/15/24 12:45 08/16/24 00:16 DC 08/15/24 21:07 Ketorolac Tromethamine (Toradol Injection) 15 mg Q6HPRN PRN IV SEVERE PAIN (7-10 PAIN SCALE) 08/15/24 12:45 08/15/24 13:21 DC Diagnostic Test (Pha) (Accu-Chek Comfort Curve T) 1 strip Q6HR 08/15/24 18:00 08/15/24 20:26 DC 08/15/24 18:00 Dextrose 50 ml UD PRN IV Blood Sugar LESS THAN 60 08/15/24 12:45 Folic Acid 1 mg/ Magnesium Sulfate 8 meq/ Multivitamins 10 ml/Thiamine HCl 100 mg/Sodium Chloride 1,013.2 ml @ 126.247 mls/hr DAILY@1800 INJ 08/15/24 14:00 08/16/24 08:33 DC Potassium Chloride 20 meq/ Dextrose/Lactated Ringer's 1,010 ml @ 200 mls/hr Q5H3M IV 08/15/24 14:15 08/16/24 08:17 DC 08/16/24 01:58 Insulin Human (Reg)/Sodium Chloride 100 ml @ 6 mls/hr [id number] IV 08/15/24 16:15 08/15/24 18:05 DC Vancomycin HCl 200 ml @ 200 mls/hr Q12H IV 08/16/24 05:00 08/16/24 08:36 DC Insulin Human (Reg)/Sodium Chloride 100 ml @ 3 mls/hr Q24H IV 08/15/24 18:15 08/15/24 18:38 Magnesium Sulfate/ Dextrose 100 ml @ 100 mls/hr Q1HR IV 08/15/24 19:00 08/15/24 20:59 DC 08/15/24 23:09 Calcium Gluconate/ Sodium Chloride 50 ml @ 100 mls/hr Q30M IV 08/15/24 18:45 08/15/24 20:14 DC 08/15/24 20:47 Diagnostic Test (Pha) (Accu-Chek Comfort Curve T) 1 strip Q1HR 08/15/24 20:30 08/16/24 10:15 Enoxaparin Sodium (Lovenox) 40 mg DAILY SC 08/16/24 10:00 08/16/24 10:15 Morphine Sulfate 2 mg Q6HPRN PRN IV SEVERE PAIN (7-10 PAIN SCALE) 08/15/24 21:45 08/16/24 00:17 DC 08/15/24 23:38 Acetaminophen (Tylenol Tablet) 625 mg Q6H PO 08/16/24 00:15 08/16/24 07:57 DC Ketorolac Tromethamine (Toradol Injection) 30 mg Q6H IV 08/16/24 06:00 08/20/24 12:44 08/16/24 06:24 Morphine Sulfate 3 mg Q4H PRN IV SEVERE PAIN (7-10 PAIN SCALE) 08/16/24 00:15 08/16/24 09:37 Calcium Gluconate/ Sodium Chloride 50 ml @ 100 mls/hr Q30M IV 08/16/24 05:30 08/16/24 06:59 DC 08/16/24 06:28 Dextrose 1,000 ml @ 200 mls/hr Q5H IV 08/16/24 08:15 08/16/24 08:24 Calcium Gluconate/ Sodium Chloride 50 ml @ 100 mls/hr Q30M IV 08/16/24 10:30 08/16/24 11:29 DC Magnesium Sulfate/ Dextrose 100 ml @ 100 mls/hr Q1HR IV 08/16/24 11:00 08/16/24 12:59 Midazolam HCl 50 ml @ 1 mls/hr Q24H IV 08/16/24 11:30 UNV Fentanyl Citrate 250 ml @ 2.5 mls/hr Q24H IV 08/16/24 11:30 UNV Review of Systems Patient seen and examined at the bedside. Patient was admitted to the ICU following developing worrisome features of increase lactic acid, positive SIRS, hypocalcemia, signs of organ dysfunction as per modified Harley's scoring system. On examination patient reported severe abdominal pain 10/10 diffusely across the abdomen more in the epigastric region. Patient had blood pressure of 137/71 mmHg, respiratory rate 45-55 per minute following which patient was intubated. Vital Signs Vital Signs Date Time Temp Pulse Resp B/P (MAP) Pulse Ox O2 Delivery O2 Flow Rate FiO2 08/16/24 10:07 122 43 139/71 08/16/24 08:00 94 08/16/24 04:00 97.4 97.4 08/15/24 20:00 Room Air* 0 21 Physical Exam Physical Examination Gen - no pallor, no icterus, no cyanosis, no clubbing, no LAD, no edema . Skin - Patients skin is warm and dry. HEENT - normocephalic, atraumatic, dry mucous membranes. Neck - full ROM, no LAD, no JVD. Pulmonary - B/L vesicular breath sounds. no crackles , no wheezing, no stridor. cardiovascular - tachycardic, regular S1,S2 heard. no murmurs heard. peripheral pulses normal radial 2+, pedal 2+. GI - markedly distended hard abdomen with severe guarding and tenderness, cardboard abdomen. Neurological - Patient is A/O X 3 . Patient is in extreme pain. Labs/Diagnostic Data Labs Test 08/16/24 10:11 08/16/24 06:30 08/16/24 06:27 08/15/24 21:40 Range/Units POC Glucose 224 H 70-106 mg/dl Blood Gas Specimen Type Venous Blood Gas Sample Site Vbg - n/a Blood Gas Patient Temperature 37.0 Arterial Blood Date Drawn [id number] [place] Test N/a Venous Blood pH 7.384 7.320-7.430 Venous Blood pCO2 at Patient Temp 34.4 L 38.0-54.0 mmHg Venous Blood pO2 at Patient Temp < 36.5 23.0-48.0 mmHg Venous Blood HCO3 20.1 L 22.0-29.0 mmol/L Venous Blood Base Excess -4.1 L -2.0-3.0 mmol/L Blood Gas Modality Room air FiO2 % 21.0 White Blood Count 8.3 4.4-10.8 10^3/uL Red Blood Count 4.19 4.0-5.20 10^6/uL Hemoglobin 11.8 L 12.2-16.2 g/dL Hematocrit 34.6 L 36.0-46.0 % Mean Corpuscular Volume 82.6 80.0-100.0 fL Mean Corpuscular Hemoglobin 28.1 28.0-32.0 pg Mean Corpuscular Hemoglobin Concent 34.0 32.0-36.0 g/dL Red Cell Distribution Width 16.0 H 11.8-14.3 % Platelet Count 204 140-450 10^3/uL Mean Platelet Volume 8.2 6.9-10.8 fL Neutrophils (%) (Auto) 80.4 H 37.0-80.0 % Lymphocytes (%) (Auto) 14.9 10.0-50.0 % Monocytes (%) (Auto) 4.1 0.0-12.0 % Eosinophils (%) (Auto) 0.1 0.0-7.0 % Basophils (%) (Auto) 0.5 0.0-2.0 % Neutrophils # (Auto) 6.7 1.6-8.6 10 ^3/uL Lymphocytes # (Auto) 1.2 0.4-5.4 10 ^3/uL Monocytes # (Auto) 0.3 0-1.3 10 ^3/uL Eosinophils # (Auto) 0 0-0.8 10 ^3/uL Basophils # (Auto) 0 0-0.2 10 ^3/uL Nucleated Red Blood Cells 0.1 % Sodium Level 134 L 136-145 mmol/L Potassium Level 4.2 3.5-5.1 mmol/L Chloride Level 106 98-107 mmol/L Carbon Dioxide Level 20 20-31 mmol/L Anion Gap 8 5-15 Blood Urea Nitrogen 11 9-23 mg/dL Creatinine 0.58 0.550-1.02 mg/dL Glomerular Filtration Rate Calc 123 >90 mL/min BUN/Creatinine Ratio 19.0 10.0-20.0 Serum Glucose 171 H 74-106 mg/dL Lactic Acid Level 2.4 *H 0.4-2.0 mmol/L Calcium Level 5.2 *L 8.7-10.4 mg/dL Phosphorus Level 0.8 L 2.4-5.1 mg/dL Magnesium Level 1.9 1.6-2.6 mg/dL Total Bilirubin 0.8 0.2-1.0 mg/dL Aspartate Amino Transferase (AST) 39 13-40 U/L Alanine Aminotransferase (ALT) 11 7-40 U/L Alkaline Phosphatase 31 L 46-116 U/L Total Protein 5.3 L 5.7-8.2 g/dL Albumin 2.9 L 3.2-4.8 g/dL Triglycerides Level 1513 H < 150 mg/dL Lipase 202 H 12-53 U/L Differential Total Cells Counted 100.0 100 Neutrophils % (Manual) 59 37.0-80.0 Band Neutrophils % (Manual) 15 Lymphocytes % (Manual) 19 10.0-50.0 Monocytes % (Manual) 6 0-12 Eosinophils % (Manual) 0 0-7 Basophils % (Manual) 0 0.0-2.0 Metamyelocytes % (manual) 1 Myelocytes % (Manual) 0 Promyelocytes % (Manual) 0 Blast Cells % (Manual) 0 Reactive Lymphocytes 0 Platelet Estimate Adequate Red Blood Cell Morphology Normal Test 08/15/24 17:32 08/15/24 16:12 08/15/24 13:25 08/15/24 07:00 Range/Units Urine Opiates Screen Pos NEGATIVE Urine Fentanyl Screen Neg NEGATIVE Urine Barbiturates Screen Neg NEGATIVE Urine Phencyclidine Screen Neg NEGATIVE Urine Amphetamines Screen Neg NEGATIVE Urine Benzodiazepines Screen Neg NEGATIVE Urine Cocaine Screen Neg NEGATIVE Urine Cannabinoids Screen Neg NEGATIVE Lactate Dehydrogenase 1370 H 120-246 U/L Beta HCG, Quantitative 0.3 L 1.5-4.2 mIU/mL Parathyroid Hormone (Intact) 346.2 H 18.4-80.1 pg/mL Beta-Hydroxybutyric Acid 0.358 < 0.4 mmol/L Test 08/15/24 00:18 08/14/24 21:45 08/14/24 12:35 08/14/24 12:07 Range/Units Arterial Blood pH 7.438 7.350-7.450 Arterial Blood Partial Pressure CO2 30.4 L 32.0-45.0 mmHg Arterial Blood Partial Pressure O2 72.0 L 83.0-108.0 mmHg Arterial Blood HCO3 20.1 L 21.0-28.0 mmol/L Arterial Blood Oxygen Saturation 94.6 94.0-98.0 % Arterial Blood Base Excess -3.0 L -2.0-3.0 mmol/L Arterial Blood Oxyhemoglobin 93.7 L 94.0-98.0 % Arterial Blood Carboxyhemoglobin 0.7 0.5-1.5 % Arterial Blood Methemoglobin 0.2 0.0-1.5 % Blood Gas Total Hemoglobin 13.60 12.0-16.0 g/dL Hemoglobin A1c 4.9 <5.7 % A1C Cholesterol Level 398 H < 200 mg/dL LDL Cholesterol < 100 mg/dL HDL Cholesterol 21 L 40-59 mg/dL Vitamin B12 Level 945 H 211-911 pg/mL Vitamin D 25-Hydroxy 4.4 L 30.0-100 ng/mL Thyroid Stimulating Hormone (TSH) 0.74 0.55-4.78 uIU/mL Plasma/Serum Blood Alcohol 3.4 <10 mg/dL Stomatocytes Few Urine Color Colorless Yellow Urine Clarity Clear Clear Urine pH 5.5 5.0-9.0 Urine Specific [place] 1.013 1.001-1.035 Urine Protein Negative Negative Urine Ketones Negative Negative Urine Blood 1+ H Negative /uL Urine Nitrite Negative Negative Urine Bilirubin Negative Negative Urine Urobilinogen Normal Negative mg/dL Urine Leukocyte Esterase Negative Negative /uL Urine RBC 3 0 - 4 /hpf Urine WBC <1 0 - 5 /hpf Urine Squamous Epithelial Cells Few <5 /hpf Urine Bacteria Few H None Seen /hpf Urine Glucose Normal Normal mg/dL Microbiology Date/Time Source Procedure Growth Status 08/15/24 10:33 Blood Blood Culture - Preliminary NO GROWTH AFTER 24 HOURS OF INCUBATION. Resulted Plan/Recommendation Assessment and plan # hypertriglyceridemia induced acute pancreatitis with a worrisome features - serum triglycerides 2904-->1741-->1513 - serum calcium 5.2 - sirs positive - patient and the family talked to about plasmapheresis and its benefits given her current condition but the patient and the family are refusing plasmapheresis given their advent believes. - continue insulin infusion - continue IV fluids # acute hypoxic respiratory failure - patient intubated # hypocalcemia - serum calcium 5.2 - serum phosphorous 0.8 - PTH 346.2 - patient given 1 mcg calcitriol IV - given low serum phosphorus and calcium patient can be given calcium gluconate IV # hypomagnesemia - patient given 2 g IV magnesium # vitamin-D deficiency - 1 mcg Calcitrol IV given Goals of care discussed with the patient and the family for over 20 minutes. Full code. Plan discussed with Patient seen and examined by myself today around with the medicine resident I discussed my treatment plan with the patient before intubation and her father and mother at the bedside however they refused plasmapheresis due to Protestant believe. Patient has diffuse abdominal pain and guarding or refer diffuse peritonitis recommend surgical consultation Plan discussed with: Patient, Other (mother and father) PENELOPE LI Aug 16, 2024 12:21 ASHISH LERMA MD Aug 16, 2024 12:40
[2024-08-16] MEDS: MEROPENEM 1GM IVPB 50 ML IV ONE (12:30)
[2024-08-16] MEDS ORDERED: VANCOMYCIN PER PHARMACY 0 MG IV SCH (12:30)
[2024-08-16 12:46] LABS: Base Excess -6.9 mmol/L (-2.0-3.0)
[2024-08-16 12:55] LABS: Albumin 2.7 g/dL (3.2-4.8); Alkaline Phosphatase 34 U/L (46-116); Anion Gap 5 (5-15); Aspartate Aminotransferase 39 U/L (13-40); BUN/Creatinine Ratio 21.3 (10.0-20.0); Blood Urea Nitrogen 10 mg/dL (9-23); Carbon Dioxide 23 mmol/L (20-31); Chloride 108 mmol/L (98-107); Glucose 170 mg/dL (74-106); Potassium 3.5 mmol/L (3.5-5.1); Sodium 136 mmol/L (136-145)
[2024-08-16 12:56] LABS: Bilirubin, Total 0.7 mg/dL (0.2-1.0); Total Protein 4.9 g/dL (5.7-8.2)
[2024-08-16] MEDS ORDERED: VANCOMYCIN 1GM/250ML KIT 200 ML IV SCH (13:00)
[2024-08-16 13:01] LABS: Alanine Aminotransferase < 9 U/L (7-40)
[2024-08-16 13:02] LABS: Calcium 4.7 mg/dL (8.7-10.4)
[2024-08-16 13:06] LABS: Basophils # (auto) 0 10 ^3/uL (0-0.2); Basophils % (auto) 0.3 % (0.0-2.0); Eosinophils # (auto) 0.1 10 ^3/uL (0-0.8); Eosinophils % (auto) 0.4 % (0.0-7.0); Hematocrit 31.5 % (36.0-46.0); Hemoglobin 10.6 g/dL (12.2-16.2); Lymphocytes # (auto) 3.5 10 ^3/uL (0.4-5.4); Mean Corpuscular Hemoglobin 28.1 pg (28.0-32.0); Mean Corpuscular Hgb Conc. 33.6 g/dL (32.0-36.0); Mean Corpuscular Volume 83.6 fL (80.0-100.0); Monocytes # (auto) 0.8 10 ^3/uL (0-1.3); Monocytes % (auto) 5.4 % (0.0-12.0); Neutrophils # (auto) 10.1 10 ^3/uL (1.6-8.6); Neutrophils % (auto) 69.9 % (37.0-80.0); Nucleated Red Blood Cells % 0.1 %; Platelet Count (auto) 284 10^3/uL (140-450); Red Blood Cells 3.77 10^6/uL (4.0-5.20); Red Cell Distribution Width 15.7 % (11.8-14.3); White Blood Cell 14.4 10^3/uL (4.4-10.8)
[2024-08-16 13:20] LABS: Albumin 3.1 g/dL (3.2-4.8); Alkaline Phosphatase 37 U/L (46-116); Anion Gap 2 (5-15); Aspartate Aminotransferase 45 U/L (13-40); BUN/Creatinine Ratio 16.9 (10.0-20.0); Blood Urea Nitrogen 10 mg/dL (9-23); Carbon Dioxide 24 mmol/L (20-31); Chloride 106 mmol/L (98-107); Glucose 194 mg/dL (74-106); Sodium 132 mmol/L (136-145)
[2024-08-16 13:21] LABS: Bilirubin, Total 0.8 mg/dL (0.2-1.0); Total Protein 5.3 g/dL (5.7-8.2)
--- NOTE | 2024-08-16 13:26 | DVH ---
CHEST RADIOGRAPH Indication:central line placement Technique: Single frontal view of the chest was obtained Comparison: XY CHEST PORTABLE on DOS: 08/16/24, XY CHEST PORTABLE on DOS: 08/15/24, CXRP on DOS: 2, CHEST PORTABLE on DOS: 07/11/22, XY CHEST PORTABLE on DOS: 08/16/24 FINDINGS: Lines and Tubes: Endotracheal tube and enteric catheter in satisfactory position. Lungs: Multifocal airspace disease. Pleura: No effusion. No pneumothorax. Cardiomediastinal contours: Unremarkable Bones: Unremarkable IMPRESSION: Lines and tubes in satisfactory position. Increased multifocal airspace disease.
[2024-08-16 13:35] LABS: Alanine Aminotransferase < 9 U/L (7-40)
[2024-08-16 13:36] LABS: Calcium 5.1 mg/dL (8.7-10.4)
[2024-08-16 14:03] LABS: Creatinine, Urine 242.96 mg/dL (30.0-125.0)
[2024-08-16 14:05] LABS: Amphetamine Screen, Urine Neg (NEGATIVE); Barbiturate Scree,Urine Neg (NEGATIVE); Benzodiazephine Screen, Urine Pos (NEGATIVE); Cannabinoid Screen, Urine Neg (NEGATIVE); Cocaine Screen, Urine Neg (NEGATIVE); Opiate Scree,Urine Pos (NEGATIVE); Phencyclidine Screen, Urine Neg (NEGATIVE); Protein, Urine 265.4 mg/dL (1-14); Urine Protein/Creatinine Ratio 1.09
[2024-08-16] MEDS: LINEZOLID 600MG/300ML 300 ML IV SCH (14:12)
[2024-08-16] MEDS: SODIUM PHOSPHATES 40 MEQ in D5W 5% 250 ML IV ONE (14:33)
--- NOTE | 2024-08-16 14:57 | DVHPNRES ---
Progress Note Date Seen: Aug 16, 2024 Resident Creating Document: FRANCIS JONES RESIDENT Has the PT tested + for MRSA If YES, has PT been informed?: No Medical Necessity Reason Pt with a Central, PICC or Fol: No Subjective Review of Systems Hospital course: Alejandra Ang, a 34-year-old female with a history of hyperlipidemia (HLD) but no significant past medical history, presented to the emergency department with severe epigastric pain rated 10/10, which began this morning. She reported having watery diarrhea since eating pizza yesterday, and today developed crampy pain spreading throughout her abdomen, along with nausea, vomiting, and chills. She denies fever, chest pain, shortness of breath, fatigue, and weakness. family history positive for hypertriglyceridemia in paternal side With father affected. Alejandra lives with a roommate, occasionally drinks alcohol, but denies smoking and drug abuse. She has no past surgical or family history and no recent travel or sick contacts. Poor historian but she Noted previous extensive skin rash/ allergy to fenofibrate and presently on atorvastatin 40 mg daily only. toxicology unremarkable, UA negative, ABG shows signs of anion gap metabolic acidosis appropriately compensate d by tachypnea and tachycardia. Patient is decided to transferred to ICU for higher level of care and close monitoring. Patient seen and examined in ICU. At initially patient was in respiratory distress, complaining of abdominal pain, feeling tired. Given patient's worsening respiratory distress, patient was emergently intubated. During nighttime patient was regularly monitored for respiratory distress, patient had family denied intubation given patient was able to breathe by herself but not getting tired. Rigorous continuous monitoring was done, family and patient agreed with intubation when patient felt tired and signs of respiratory was evident. Eyes: No Pain, No Vision change, No Conjunctivae inflammation, No Eyelid inflammation, No Other, No Redness ENT: No Ear pain, No Ear discharge, No Nose pain, No Nose discharge, No Nose congestion, No Mouth pain, No Mouth swelling, No Throat pain, No Throat swelling, No Other Cardiovascular: No Chest Pain, No Palpitations, No Orthopnea, No Paroxysmal Noc. Dyspnea, No Edema, No Lt Headedness, No Other Respiratory: No Cough, No Dry, Shortness of breath, No SOB with excertion, No Wheezing, No Hemoptysis, No Pleuritic Pain, No Sputum, No Other Gastrointestinal: No Nausea, No Vomiting, Abdominal Pain, No Diarrhea, No Constipation, No Melena, No Hematochezia, No Other Genitourinary: No Dysuria, No Frequency, No Incontinence, No Hematuria, No Retention, No Other Musculoskeletal: No other, No neck pain, No shoulder pain, No arm pain, No back pain, No hand pain, No leg pain, No foot pain Skin: No Rash, No Lesions, No Jaundice, No Bruising, No Other Objective vital signs Vital Sign Date Time Temp Pulse Resp B/P (MAP) Pulse Ox O2 Delivery O2 Flow Rate FiO2 08/16/24 13:45 128 21 123/65 (84) 98 08/16/24 11:48 100 08/16/24 04:00 97.4 97.4 08/15/24 20:00 Room Air* 0 Total Intake and Output 08/15/24 08/15/24 08/16/24 15:00 23:00 07:00 Intake Total 200 ml 1462 ml 1368.0 ml Output Total 400 ml Balance 200 ml 1462 ml 968.0 ml medications Current Medications Medications Dose Ordered Sig/Snow Route Start Time Stop Time Status Last Admin Dose Admin Sodium Chloride 10 ml Q8HR IV 08/14/24 22:00 08/16/24 14:06 10 ML Pantoprazole Sodium 40 mg DAILY IV 08/15/24 10:00 08/16/24 10:14 40 MG Ergocalciferol 50,000 unit Q7D PO 08/15/24 10:00 08/15/24 08:53 50,000 UNIT Dextrose 50 ml UD PRN IV 08/15/24 12:45 Insulin Human (Reg)/Sodium Chloride 100 ml @ 3 mls/hr Q24H IV 08/15/24 18:15 08/15/24 18:38 3 MLS/HR Diagnostic Test (Pha) 1 strip Q1HR 08/15/24 20:30 08/16/24 14:12 1 STRIP Enoxaparin Sodium 40 mg DAILY SC 08/16/24 10:00 08/16/24 10:15 40 MG Dextrose 1,000 ml @ 200 mls/hr Q5H IV 08/16/24 08:15 08/16/24 14:12 200 MLS/HR Midazolam HCl 50 ml @ 1 mls/hr Q24H IV 08/16/24 11:30 08/16/24 14:21 9 MLS/HR Fentanyl Citrate 250 ml @ 2.5 mls/hr Q24H IV 08/16/24 11:30 08/16/24 11:39 2.5 MLS/HR Meropenem 50 ml @ 17 mls/hr Q8H IV 08/16/24 21:00 Linezolid 300 ml @ 150 mls/hr Q12HR IV 08/16/24 13:00 08/16/24 14:12 150 MLS/HR Examination General Appearance: BELLO S - 3, sedated and mechanical ventilation Head Exam: Normal inspection Neck Exam: Normal inspection. Non-tender. Normal alignment Pulmonary/Respiratory: Chest non-tender. Clear bilateral breath sounds Cardiovascular/Chest: Regular rate and rhythm. No murmurs. No JVD. Peripheral Pulses: 2+ Radial (R). 2+ Radial (L). 2+ Pedal (R). 2+ Pedal (L) Abdominal Exam: Rigid abdomen, presence of bowel sounds in all four quadrant, rigidity, no involuntary guarding. No fluid thrill. Ankle Exam: Negative ankle edema Lower extremities: Negative lower extremity edema Neuro/Mental Status: A&O x4. Coherent Thoughts/Psych: Normal thought pattern. Appropriate mood and affect. Good judgement and insight Appearance: In no acute distress Skin Exam: Normal inspection. Normal color. Warm. Dry laboratory and microbiology Laboratory Tests 08/16/24 12:40 Test 08/16/24 12:40 Range/Units Serum Glucose 194 H 74-106 mg/dL Microbiology Date/Time Source Procedure Growth Status 08/15/24 13:32 Nose MRSA Screen - Final Complete 08/15/24 10:33 Blood Blood Culture - Preliminary NO GROWTH AFTER 24 HOURS OF INCUBATION. Resulted Problem List/Assessment/Plan Problem List/Assessment/Plan Acute pancreatitis likely due to severe hypertriglyceridemia -currently on insulin 3 units/hour, non titratable -continue check trend of triglyceride q.12: 4>1741>1513 -continue check trend of blood glucose Q 1 hour: Target blood glucose level (90-180 mg/dL). Stopped insulin drip if blood sugar less than 90. -continue D10 W 200 mL/hour -NPO -abdomen/pelvis CT(08/16/24): Acute pancreatitis, no evidence of necrosis or pseudocyst. -monitor potassium level q.6: Target potassium greater than 4.5. Received 40 mEq of potassium. -ABG: Metabolic acidosis: PH 7.208, CO2 54.6, HC03 21.2. Follow with ABG q.6 hourly. -currently on antibiotic meropenem and linezolid. -nephrology: Correcting electrolytes including phosphorus and magnesium and calcium. Family was offered plasma pheresis, family and patient refused plasma pheresis given patient is Mu-ism. -continue to monitor lactic acid Q12: 2.4, 1.3, 1.7. -IV pain management was given: Morphine and Toradol. -serum alcohol less than three, chest ultrasound: No cholelithiasis. -IV albumin 25 g Q eight given 3rd spacing of IV fluids. -stop insulin when triglyceride level at 500. Acute hypercapnic/hypoxic respiratory failure due to above -on mechanical ventilation: Respiratory rate 16, tidal volume 400, FiO2 100%, peep five -CT chest: Bilateral pleural effusions with bibasilar atelectasis and consolidation. IV lasix 40 mg daily -IV antibiotic with meropenem and linezolid. -pending culture including blood culture, respiratory culture, stool culture, urine culture. Familial hypertriglyceridemia -continue current management of acute pancreatitis. Anion gap metabolic acidosis due to lactic acidosis: Resolved -continue with IV fluids. Moderate ascites -IR consultation for paracentesis Bilateral pleural effusion -Lasix 40 mg IV daily -continue to monitor electrolytes including potassium q.4. Sirs due to acute pancreatitis, no sepsis -continue current management of acute pancreatitis Pseudo hyponatremia -today 132 given hyperglycemia and hypertriglyceridemia. -continue to monitor. Severe Hypocalcemia -IV calcitriol 1 mcg IV given once. -IV calcium gluconate 100 mcg given per Nephrology. -repeat calcium level Q six. -monitor for EKG changes of hypocalcemia Hypophosphatemia -phosphorus level 0.8, 1.1. -sodium phosphate 40 mEq given -repeat phosphorus level in a.m.. Hypomagnesemia -magnesium level 1.3, 1.9. -received magnesium sulfate 1 g IV. -repeat magnesium level in a.m.. PUD prophylaxis: Protonix DVT prophylaxis: Enoxaparin Lines: Right IJ central line inserted on 08/16/2024 Right femoral a line inserted on 08/16/2024 Intubated on 08/16/2024 Sparrow catheter G-tube Events: For worsening workup respiratory breathing, hypercapnia, patient was emergently intubated for protection of airway and breathing support. IV insulin was continued on rate of 3 units/hour, with D 10 at 200 mL/hour. Rigors potassium level was monitored given low-level at 3.5 and four patient was given IV potassium supplement. Other electrolytes also admission including IV calcium, IV magnesium, IV phosphorus. Patient and family was offered plasma pheresis however given patient is Jehovah Witness they refused for plasmapheresis and continue with current management. Patient underwent CT abdomen which showed acute pancreatitis with moderate ascites and pleural effusion but no necrosis of pancreas. Patient was also given albumin given patient is losing IV fluid via 3rd spacing. Given possibility of infection patient was started on meropenem and linezolid given possible questionable vancomycin to allergic reaction. Patient will be NPO given high triglyceridemia and plan to monitor triglyceride q.12 and repeat CBC, CMP, lactic acid Q eight. Goals of care, full code discussed greater than 24 minutes Critical care time spent excluding procedure greater than 89 minutes. Plan discussed with Dr. Bang Plan discussed with: Patient, Other (Father) My Orders My Orders Orders - FRANCIS JONES Procedure Category Date Status Time Dextrose 10% PHA 08/16/24 In Process 08:15 Insulin Drip Protocol CARLITA 08/16/24 In Process 08:16 Lipid Panel LAB 08/17/24 Verified 04:00 Date of Service: Aug 16, 2024 Billing Provider: DARWIN BANG MD Common Visit Codes: 76584-[id number] CARE 30-74 MIN FRANCIS JONES Aug 16, 2024 14:57 DARWIN BANG MD Aug 19, 2024 14:22
--- NOTE | 2024-08-16 14:58 | DVHNC2 ---
Central Line Recorder of insertion practice: Linux Developer (Dr Davidson) Indication: Hypotension, CVP monitoring, Volume resuscitation Room prepared for procedure: Yes Linux Developer performed hand hygien: Yes Maximal sterile barrier precau: Mask/Eye shield, Sterile gown, Cap, Sterlie gloves, Large sterlie drape Skin Preparation: Chlorhexidine gluconate, Alcohol Skin preparation completely dr: Yes Insertion site: Right, Internal jugular Central line catheter type: Noi-[id number] dialysis Number of lumens: 3 Central line exchanged over a: No Antiseptic ointment applied to: No Post Assessment: Chest X-Ray, Proper placement, No Pneumothorax Informed consent obtained: Yes Risks/benefits/alt described: Yes Notes DESCRIPTION OF PROCEDURE IN DETAIL: The patient was lying in the Trendelenburg position with head turned 30 degrees away from the insertion site. The skin was thoroughly sponged with chlorhexidine and allowed to dry. All persons involved were shielded with hair nets, face masks and sterile gowns. With sterile-gloved hands the right neck area was draped with the large disposable sterile field provided in the pre-manufactured kit. The skin and subcutaneous tissues superficial to the RIGHT internal jugular vein were anesthetized with 2 mL of 1% lidocaine. The RIGHT internal jugular vein was identified on ultrasound from the angle of the mandible down into the supraclavicular fossa using the linear ultrasound pro be in the transverse orientation. The carotid artery was identified and avoided utilizing color-flow. The internal jugular vein was then placed in the center of the ultrasound field and compressed for patency. A movement artifact was identified as the needle was advanced through the skin and advanced toward the vessel. A real time hyperechoic signal revealed visualization of vascular needle entry into the lumen as blood was noted to flashback in the syringe. The needle was then held in place while the guide wire was advanced. The needle was then removed. Direct visualization of guide wire location within the vein was noted on ultrasound indicating proper placement and was document in the electronic medical record chart. A skin dilator was advanced over the guidewire and removed, and the triple-lumen catheter was then advanced over the guide wire into proper position. The guide wire was removed and discarded. The ports were aspirated which showed good blood return and then carefully flushed with normal saline. The catheter was stabilized and sutured to the skin with 2-0 silk at 2 anchor points. A sterile bio-patch and dressing was placed over the catheter, including the insertion site. The patient tolerated the procedure well. A chest x-ray was ordered for position confirmation. Post-procedure chest x-ray :No pneumothorax, proper placement of line, Flushing well. Date of Service: Aug 16, 2024 Billing Provider: DARWIN CHARLES MD Common Visit Codes: PROCEDURE ONLY Procedure Codes: [id number], [id number] NON-TUNNEL CV CATH FRANCIS DAVIDSON Aug 16, 2024 14:58 DARWIN CHARLES MD Aug 16, 2024 17:40
--- NOTE | 2024-08-16 14:58 | DVHNC2 ---
Intubation Indication: Respiratory Insufficiency Prep: Preoxygenation Medicated with: Succinylcholine, Other (etomodate) Intubation size: cm (7.5) Informed consent obtained: Yes Risks/benefits/alt described: Yes Notes A time out was performed. My hands were washed immediately prior to the procedure. The patient was placed on a court recording monitor including continuous pulse oximetry. Rapid Sequence Intubation was conducted. The patient received 75 rocuronium and 25 mg of etomidate for adequate paralysis. Cricoid pressure was maintained from time induction agent was given to time of cuff balloon inflation. Using GlideScope the patient was intubated on the 1 attempt. The stylet was removed and cuff balloon was inflated. Appropriate endotracheal tube position was confirmed by direct visualization of vocal cord passage, fogging of the tube, CO2 colormetric indicator and symmetric breath sounds. The tube was secured at 22 cm at the lips. Post intubation chest x-ray is reviewed. Date of Service: Aug 16, 2024 Billing Provider: DARWIN CHARLES MD Common Visit Codes: PROCEDURE ONLY Procedure Codes: [id number] FRANCIS JONES Aug 16, 2024 14:58 DARWIN CHARLES MD Aug 16, 2024 17:41
[2024-08-16] MEDS: IOHEXOL 300 MG/ML 100ML BOTTLE IJ ONE (15:05)
--- NOTE | 2024-08-16 16:11 | DVH ---
Exam: CT CT AB PEL WITH IV CON ONLY History: ABDOMINAL PAIN COMPARISON: CT CT AB PEL WO CON-NO ORAL OR IV on DOS: 08/14/24 Technique: Multidetector spiral CT of the abdomen and pelvis was performed from lung bases to pubic symphysis. Intravenous contrast was administered during this examination. Portal venous imaging was obtained. Axial, coronal and sagittal multiplanar reformats were performed by the technologist on a separate workstation. Radiation Dose : Abdomen/Pelvis: CTDIvol 2 mGy, DLP 1265.64 mGy*cm. CONTRAST: Type of contrast: Omni 300 Contrast injected: 1265 mL Findings: Lung Bases: Bilateral pleural effusions with associated bibasilar atelectasis and consolidation right greater than left. Liver: The liver is normal in size. No focal lesions. Normal hepatic vascular enhancement. Gallbladder and biliary Tree: Unremarkable Spleen: Unremarkable Pancreas: Extensive peripancreatic stranding and free fluid. Pancreas enhances normally. No loculated fluid collection identified. Adrenal Glands: Unremarkable Kidneys: No hydronephrosis. Bladder: Bladder is decompressed with a Sparrow catheter and cannot be adequately assessed. Bowel: The stomach is grossly normal in appearance. Small bowel and colon are normal in caliber and d istribution. The appendix is not visualized; however, no secondary findings of acute appendicitis id entified. Ascites: Moderate amount of abdominal and pelvic ascites. Lymphadenopathy: No mesenteric, retroperitoneal or periportal lymphadenopathy. Abdominal wall and Mesentery: Unremarkable. Vasculature: The visualized abdominal aorta is normal in size and caliber. Abdominal and pelvic vess els demonstrate normal enhancement. Pelvic Organs: Unremarkable Musculoskeletal: Compression deformity of L1. IMPRESSION: 1. Acute pancreatitis. No evidence of necrosis or pseudocyst formation at this time. Moderate amount of abdominal ascites. Bilateral pleural effusions with bibasilar atelectasis and consolidation. Radiation optimization: All CT scans at this facility use at least one of these dose optimization lizzette hniques: Automated exposure control mA and/or kV adjustment per patient size (includes targeted exams where dose is matched to clinical indication) or iterative reconstruction. HS:Y
[2024-08-16] MEDS: POTASSIUM CHL 20MEQ/100ML 100 ML IV SCH (16:33)
[2024-08-16] MEDS: FUROSEMIDE 40 MG/4 ML VIAL IV ONE (16:38)
[2024-08-16] MEDS: ALBUMIN 25% 100 ML IV SCH (16:40)
--- NOTE | 2024-08-16 17:14 | DVHNC2 ---
Arterial Puncture Indication: Assess acid-base status Procedure: Sterile Preparation Location: Right Femoral Informed consent obtained: Yes Risks/benefits/alt described: Yes Notes A time out was performed. My hands were washed immediately prior to the procedure. I wore a surgical cap, mask with protective eyewear, sterile gown and sterile gloves throughout the procedure. After an Homer test was performed to ensure adequate perfusion, the right groin region was prepped using chlorhexidine scrub and draped in sterile fashion using a three quarter sheet drape and sterile towels. The right femoral pulse was identified and the wrist was positioned in the usual fashion. Anesthesia was achieved using 1% lidocaine. Using the Arrow Radial Arterial Line Kit, a needle was inserted into the radial artery under USG guided. Arterial blood was seen to pulsate in the flash chamber. The internal guidewire was advanced easily into the right femoral artery. The catheter was then advanced over the wire and the needle and wire were withdrawn. The catheter was sutured in place. A sterile opsite was placed over the catheter at the insertion site. The patient tolerated the procedure without any hemodynamic compromise. At the time of procedure completion, the catheter was connected to the security monitor and calibrated. Appropriate waveform and blood pressure tracing was observed. Estimated blood loss is 5 ml . Date of Service: Aug 16, 2024 Billing Provider: FRANCIS JONES Common Visit Codes: PROCEDURE ONLY Procedure Codes: [id number] FRANCIS JONES Aug 16, 2024 17:14 DARWIN CHARLES MD Aug 19, 2024 14:18
[2024-08-16 19:16] LABS: Base Excess -5.9 mmol/L (-2.0-3.0)
[2024-08-16 20:00] LABS: Albumin 3.1 g/dL (3.2-4.8); Alkaline Phosphatase 30 U/L (46-116); Anion Gap 6 (5-15); Aspartate Aminotransferase 45 U/L (13-40); BUN/Creatinine Ratio 13.6 (10.0-20.0); Blood Urea Nitrogen 9 mg/dL (9-23); Carbon Dioxide 20 mmol/L (20-31); Chloride 101 mmol/L (98-107); Glucose 197 mg/dL (74-106)
[2024-08-16 20:01] LABS: Total Protein 5.3 g/dL (5.7-8.2)
[2024-08-16 20:02] LABS: Alanine Aminotransferase < 9 U/L (7-40); Sodium 127 mmol/L (136-145)
[2024-08-16] MEDS: MEROPENEM 1GM IVPB 50 ML IV SCH (21:09)
[2024-08-16 22:41] LABS: Hematocrit 24.4 % (36.0-46.0); Hemoglobin 8.5 g/dL (12.2-16.2); Mean Corpuscular Hgb Conc. 34.9 g/dL (32.0-36.0); Mean Corpuscular Volume 83.2 fL (80.0-100.0); Platelet Count (auto) 121 10^3/uL (140-450); Red Blood Cells 2.93 10^6/uL (4.0-5.20); Red Cell Distribution Width 15.7 % (11.8-14.3); White Blood Cell 5.7 10^3/uL (4.4-10.8)
[2024-08-16 22:44] LABS: Base Excess -7.1 mmol/L (-2.0-3.0)
[2024-08-16 22:50] LABS: Basophils % (manual) 0 (0.0-2.0); Blast Cells 0; Eosinophils % (manual) 0 (0-7); Metamyelocytes % 0; Myelocytes % 0; Promyelocytes % 0; Reactive Lymphocytes 0
[2024-08-16 22:54] LABS: Alanine Aminotransferase 10 U/L (7-40); Albumin 3.5 g/dL (3.2-4.8); Alkaline Phosphatase 28 U/L (46-116); Anion Gap 6 (5-15); Aspartate Aminotransferase 75 U/L (13-40); BUN/Creatinine Ratio 13.2 (10.0-20.0); Bilirubin, Total 1.2 mg/dL (0.2-1.0); Blood Urea Nitrogen 10 mg/dL (9-23); Carbon Dioxide 20 mmol/L (20-31); Chloride 101 mmol/L (98-107); Glucose 173 mg/dL (74-106); Sodium 127 mmol/L (136-145); Total Protein 5.6 g/dL (5.7-8.2)
[2024-08-16 23:14] LABS: Band Neutrophils % (manual) 8; Lymphocytes % (manual) 30 (10.0-50.0); Monocytes % (manual) 5 (0-12); Platelet Estimate Decreased
[2024-08-17] VITALS (107 sets, daily range): BP systolic 76–202; BP diastolic 18–174; PULSE 85–142; RESP 16–27; TEMP 95.2–102.9; O2SAT 97–100
[2024-08-17 02:36] LABS: Base Excess -6.6 mmol/L (-2.0-3.0)
[2024-08-17 04:14] LABS: Albumin 3.5 g/dL (3.2-4.8); Alkaline Phosphatase 27 U/L (46-116); Anion Gap 9 (5-15); Aspartate Aminotransferase 49 U/L (13-40); BUN/Creatinine Ratio 15.7 (10.0-20.0); Bilirubin, Total 1.3 mg/dL (0.2-1.0); Blood Urea Nitrogen 11 mg/dL (9-23); Carbon Dioxide 17 mmol/L (20-31); Chloride 97 mmol/L (98-107); Glucose 218 mg/dL (74-106); Magnesium 1.6 mg/dL (1.6-2.6); Phosphorus 0.7 mg/dL (2.4-5.1); Potassium 3.8 mmol/L (3.5-5.1); Sodium 123 mmol/L (136-145); Total Protein 5.2 g/dL (5.7-8.2)
[2024-08-17 04:19] LABS: Alanine Aminotransferase < 9 U/L (7-40)
[2024-08-17] MEDS: ACETAMINOPHEN 650 MG RECT SUPP PR PRN (04:24)
[2024-08-17 04:32] LABS: Calcium 5.1 mg/dL (8.7-10.4); Lactic Acid w/Reflex 2.5 mmol/L (0.4-2.0)
[2024-08-17 04:57] LABS: Triglycerides 789 mg/dL (< 150)
--- NOTE | 2024-08-17 05:29 | DVH ---
Exam: US US GUIDED VASCULAR ACCESS Date: 08/16/2024 12:15 PM Clinical History: central line placement Comparison: None Findings: Targeted sonographic evaluation of the right internal jugular vein was obtained utilizing grayscale a nd color Doppler imaging. IMPRESSION: Sonographic assistance for central line placement. Please refer to procedural report for detailed fin dings.
--- NOTE | 2024-08-17 05:30 | DVH ---
CHEST RADIOGRAPH Indication:ICU patient, intubated and sedated Technique: Single frontal view of the chest was obtained COMPARISON: XY CHEST XRAY 1 VIEW on DOS: 08/16/24, XY CHEST PORTABLE on DOS: 08/16/24, XY CHEST PORTABL E on DOS: 08/15/24, XY CHEST XRAY 1 VIEW on DOS: 08/16/24 FINDINGS: Lines and Tubes: Endotracheal tube and enteric catheter in satisfactory position. Right central venou s catheter in satisfactory position. Lungs: Multifocal airspace disease. Pleura: No effusion. No pneumothorax. Cardiomediastinal contours: Unremarkable Bones: Unremarkable IMPRESSION: Lines and tubes in satisfactory position. Unchanged multifocal airspace disease.
[2024-08-17] MEDS: SODIUM PHOSPHATES 40 MEQ in D5W 5% 250 ML IV ONE (06:00)
[2024-08-17] MEDS: MAGNESIUM SULFATE 1GM/100ML 100 ML IV SCH ×3 (06:28→14:57)
[2024-08-17] MEDS: POTASSIUM CHL 20MEQ/100ML 100 ML IV ONE ×3 (06:28→13:00)
[2024-08-17 07:43] LABS: Base Excess -9.7 mmol/L (-2.0-3.0)
--- NOTE | 2024-08-17 09:28 | DVHPN2 ---
Progress Note Date Seen: Aug 17, 2024 Has the PT tested + for MRSA If YES, has PT been informed?: No Medical Necessity Reason Pt with a Central, PICC or Fol: No Subjective Review of Systems: RESPIRATORY:Abnormal Other Systems: Patient seen and examined by myself today in follow-up Patient intubated on ventilator Objective vital signs Vital Sign Date Time Temp Pulse Resp B/P (MAP) Pulse Ox O2 Delivery O2 Flow Rate FiO2 08/17/24 07:25 115 27 122/60 (80) 100 40 08/17/24 06:45 101.7 215.1 08/17/24 06:00 Mechanical Ventilator+ 08/16/24 08:00 0 Total Intake and Output 08/16/24 08/16/24 08/17/24 15:00 23:00 07:00 Intake Total 2187.0 ml 2634.0 ml 2196.585 ml Output Total 450 ml 650 ml Balance 2187.0 ml 2184.0 ml 1546.585 ml medications Current Medications Medications Dose Ordered Sig/Snow Route Start Time Stop Time Status Last Admin Dose Admin Sodium Chloride 10 ml Q8HR IV 08/14/24 22:00 08/17/24 05:27 10 ML Pantoprazole Sodium 40 mg DAILY IV 08/15/24 10:00 08/16/24 10:14 40 MG Ergocalciferol 50,000 unit Q7D PO 08/15/24 10:00 08/15/24 08:53 50,000 UNIT Dextrose 50 ml UD PRN IV 08/15/24 12:45 Insulin Human (Reg)/Sodium Chloride 100 ml @ 3 mls/hr Q24H IV 08/15/24 18:15 08/15/24 18:38 3 MLS/HR Diagnostic Test (Pha) 1 strip Q1HR 08/15/24 20:30 08/17/24 07:01 1 STRIP Enoxaparin Sodium 40 mg DAILY SC 08/16/24 10:00 08/16/24 10:15 40 MG Dextrose 1,000 ml @ 200 mls/hr Q5H IV 08/16/24 08:15 08/17/24 05:37 200 MLS/HR Midazolam HCl 50 ml @ 1 mls/hr Q24H IV 08/16/24 11:30 08/17/24 07:38 15 MLS/HR Fentanyl Citrate 250 ml @ 2.5 mls/hr Q24H IV 08/16/24 11:30 08/17/24 04:38 35 MLS/HR Meropenem 50 ml @ 17 mls/hr Q8H IV 08/16/24 21:00 08/17/24 05:28 17 MLS/HR Linezolid 300 ml @ 150 mls/hr Q12HR IV 08/16/24 13:00 08/16/24 23:39 150 MLS/HR Furosemide 40 mg DAILY IV 08/17/24 10:00 Albumin Human 100 ml @ 100 mls/hr Q8H IV 08/16/24 16:30 08/17/24 09:29 08/17/24 00:31 100 MLS/HR Dexmedetomidine HCl 400 mcg/ Dextrose 100 ml @ 3.695 mls/ hr Q24H IV 08/17/24 02:45 08/17/24 03:15 3.695 MLS/HR Acetaminophen 650 mg Q8HPRN PRN [place] 08/17/24 04:15 08/17/24 04:24 650 MG Examination: LUNGS:Normal, CVS:Abnormal, ABDOMEN:Abnormal, MSK:Abnormal laboratory and microbiology Laboratory Tests 08/17/24 03:15 08/16/24 22:25 Test 08/17/24 03:15 Range/Units Serum Glucose 218 H 74-106 mg/dL Microbiology Date/Time Source Procedure Growth Status 08/15/24 13:32 Nose MRSA Screen - Final Complete 08/15/24 10:33 Blood Blood Culture - Preliminary NO GROWTH AFTER 24 HOURS OF INCUBATION. Resulted Problem List/Assessment/Plan Problem List/Assessment/Plan hypertriglyceridemia induced acute pancreatitis Acute hypoxic respiratory failure patient intubated on ventilator Hypocalcemia Hypophosphatemia Peritonitis Acute abdomen Ascites Hyponatremia due to hypotonic IV fluid Vitamin-D deficiency Hypomagnesemia Hyperparathyroidism Rastafarian refused plasmapheresis Recommendations Kidney function remained within normal limits Increased urine output Sparrow catheter Strict I&Os Calcium gluconate IV piggyback Sodium phosphate IV piggyback Magnesium sulfate IV piggyback Calcijex1 mcg IV q.day Surgical consult We will continue to follow up Plan discussed with: Other (Nurse) ASHISH LERMA MD Aug 17, 2024 09:28
[2024-08-17] MEDS: SODIUM CHLORIDE 0.9% 1,000 ML IV ONE ×2 (09:30→14:34)
--- NOTE | 2024-08-17 09:35 | DVHPN2 ---
Assessment/Plan Assessment/Plan 34-year-old female with hyperlipidemia admitted for abdominal pain. Found to have severe hypertriglyceridemia and pancreatitis. Patient also worrisome features, hypercalcemia, HAGMA, tachycardia, leukocytosis. Decision made to transfer patient ICU, intubated and mechanically ventilated, sedated. Spiking fever today, distended abdomen, POCUS done by me today, no tapable pocket. Soft blood pressure, with high PPV Physical exam Sedated, intubated on mechanical ventilation Vent synchrony PERRLA Coarse breath sounds S1-S2 regular rate and rhythm Abdomen distended, NG tube to intermittent suction with bolus fluid No lower extremity edema Lab Elevated lipase, improving Hypocalcemia Hypophosphatemia Hyponatremia Hyperglycemia Hypertriglyceridemia, improving Low bicarb, improving Elevated anion gap, resolved, Elevated lactate Leukocytosis, resolved Imaging X-ray, right lung base atelectasis CT abdomen pelvis, [place] pancreatic fat stranding Assessment and plan Distributive shock Acute hypoxic respiratory failure Right pleural effusion Aspiration pneumonia Hypertriglyceridemia induced acute pancreatitis With worrisome features Systemic inflammatory response syndrome 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 Atelectasis likely from splinting HAGMA Lactic acidosis Admit to ICU concrete mixer consult appreciated low threshold for intubation, watch for respiratory fatigue Start insulin drip at 0.05 units/kg/hr, keep rate fixed titrate D5W per glucose if glucose between 180-250 -> continue current rate if glucose above 250 -> half the glucose rate if glucose bellow 180 -> double glucose rate or go to d10 d50 push for glucose <90 If K is below 4.5 add 10 mEq / 2 hr goal TG drop of 500 in 24 hr Continue with meropenem and linezolid, patient allergic to vancomycin VBG q4 CMP q4 CBC q8 Lactate q8 fingerstick q2 White ppv we will give 1 L IV bolus prior to starting pressors strict I&O keep NPO for now lovenox subQ IV protonix qd Replete phosphate, Mag IV calcium Keep corrected above 6 monitor for acute abdomen, CT abdomen done, no perforation NG tube to low intermittent suction Family refused plasmapheresis due to mandaeism beliefs Lines R IJ TLC fem a line condition critical prognosis poor Total critical care time spent on this patient more than 63 minutes including evaluation, chart review, formulating plan and communication with team, excluding any procedures Plan discussed with: Patient My Orders Orders - MARY FERMIN MD Procedure Category Date Status Time Abg W/ Co-Ox RT 08/16/24 Logged 12:15 Chest Portable XY 08/16/24 Resulted 11:45 Ventilator Orders RT 08/16/24 Transmitted 13:04 Date of Service: Aug 17, 2024 Billing Provider: MARY FERMIN MD Common Visit Codes: [id number] INP/OBS CARE(HIGH), 81980-LAJ/OBS SAME DATE (HIGH), [id number] CARE 30-74 MIN, PROCEDURE ONLY (Cardiac point of care ultrasound 24499) MARY FERMIN MD Aug 17, 2024 09:35
[2024-08-17] MEDS: NOREPINEPHRINE 8 MG/250ML KIT 250 ML IV SCH (09:53)
[2024-08-17] MEDS ORDERED: NOREPINEPHRINE 8 MG/250ML KIT 250 ML IV SCH (10:00)
[2024-08-17] MEDS ORDERED: SODIUM CHLORIDE 0.9% 1,000 ML IV ONE (10:00)
[2024-08-17] MEDS: NOREPINEPHRINE 8 MG/250ML KIT 250 ML IV ONE (10:11)
[2024-08-17 10:16] LABS: INR 1.38 (0.9-1.15); Partial Thromboplastin Time 51.6 SEC (24.5-34.5); Prothrombin Time 14.3 sec (9.3-11.8)
[2024-08-17] MEDS: FUROSEMIDE 40 MG/4 ML VIAL IV SCH (10:34)
[2024-08-17] MEDS: BISACODYL 10 MG RECT SUPP PR ONE (10:42)
--- NOTE | 2024-08-17 12:25 | DVHINCON2 ---
Date of service: Aug 17, 2024 Family History: Hypercholesterolemia G8 MOTHER G8 FATHER Allergies: Coded Allergies: Fenofibrate (Verified Allergy, Intermediate, REDNESS/ITCHINESS, 08/15/24) Vancomycin (Verified Allergy, Intermediate, 08/15/24) FLUSHING/ GENERALIZED REDNESS Home Meds Reported Medications Atorvastatin Calcium (ATORVASTATIN CALCIUM) 40 Mg Tab, 1 TAB PO DAILY 08/14/24 Current Medications Current Medications Medications (Trade) Dose Ordered Sig/Snow Route PRN Reason Start Time Stop Time Status Last Admin Vancomycin HCl 0 ml @ 0 mls/hr UD IV 08/16/24 12:30 08/16/24 12:54 DC Meropenem 50 ml @ 17 mls/hr Q8H IV 08/16/24 21:00 08/17/24 05:28 Vancomycin HCl 200 ml @ 200 mls/hr Q8H IV 08/16/24 13:00 08/16/24 12:54 DC Linezolid 300 ml @ 150 mls/hr Q12HR IV 08/16/24 13:00 08/17/24 10:33 Potassium Chloride 100 ml @ 50 mls/hr Q2H IV 08/16/24 15:00 08/16/24 18:59 DC 08/16/24 17:00 Furosemide (Lasix Injection) 40 mg DAILY IV 08/17/24 10:00 08/17/24 10:34 Albumin Human 100 ml @ 100 mls/hr Q8H IV 08/16/24 16:30 08/17/24 09:29 DC 08/17/24 10:35 Dexmedetomidine HCl 400 mcg/ Dextrose 100 ml @ 3.695 mls/ hr Q24H IV 08/17/24 02:45 08/17/24 03:15 Acetaminophen (Tylenol Suppository) 650 mg Q8HPRN PRN [place] PAIN SCALE 1-3 OR TEMP>100.4 08/17/24 04:15 08/17/24 04:24 Calcium Gluconate/ Sodium Chloride 50 ml @ 100 mls/hr Q30M IV 08/17/24 06:00 08/17/24 06:59 DC Magnesium Sulfate/ Dextrose 100 ml @ 100 mls/hr Q1HR IV 08/17/24 06:00 08/17/24 07:59 DC 08/17/24 10:34 Magnesium Sulfate/ Dextrose 100 ml @ 100 mls/hr Q1HR IV 08/17/24 10:00 08/17/24 11:59 DC Calcitriol (Calcitriol Injectable) 1 mcg EOD IV 08/17/24 10:00 Norepinephrine Bitartrate 250 ml @ 3.75 mls/hr Q24H IV 08/17/24 09:30 08/17/24 09:53 Norepinephrine Bitartrate 250 ml @ 3.75 mls/hr Q24H IV 08/17/24 10:00 08/17/24 09:51 DC Vital Signs Vital Signs Date Time Temp Pulse Resp B/P (MAP) Pulse Ox O2 Delivery O2 Flow Rate FiO2 08/17/24 10:59 86 24 103/50 (67) 100 40 08/17/24 10:45 95.4 203.7 08/17/24 06:00 Mechanical Ventilator+ 08/16/24 08:00 0 Labs/Diagnostic Data Labs Test 08/17/24 11:16 08/17/24 09:10 08/17/24 07:14 08/17/24 05:33 Range/Units POC Glucose 232 H 70-106 mg/dl Prothrombin Time 14.3 H 9.3-11.8 sec Prothrombin Time INR 1.38 H 0.9-1.15 Activated Partial Thromboplast Time 51.6 H 24.5-34.5 SEC Triglycerides Level 725 H < 150 mg/dL Blood Gas Specimen Type Arterial Blood Gas Sample Site Arterial line Blood Gas Patient Temperature 37.0 Arterial Blood Date Drawn [id number] Arterial Blood pH 7.298 L 7.350-7.450 Arterial Blood Partial Pressure CO2 33.1 32.0-45.0 mmHg Arterial Blood Partial Pressure O2 126.9 H 83.0-108.0 mmHg Arterial Blood HCO3 15.8 L 21.0-28.0 mmol/L Arterial Blood Oxygen Saturation 98.6 H 94.0-98.0 % Arterial Blood Base Excess -9.7 L -2.0-3.0 mmol/L Arterial Blood Oxyhemoglobin 96.7 94.0-98.0 % Arterial Blood Carboxyhemoglobin 1.1 0.5-1.5 % Arterial Blood Methemoglobin 0.8 0.0-1.5 % Homer Test N/a Blood Gas Total Hemoglobin 8.70 L 12.0-16.0 g/dL Blood Gas Set Respiration Rate 22.0 Blood Gas Modality Vent - ac Blood Gas Spontaneous Rate 22 FiO2 % 40.0 Blood Gas Tidal Volume 450.0 Blood Gas Inspiratory Pressure 34.0 Blood Gas PEEP or CPAP 5.0 Bl Gas Inspiratory/Expiratory Ratio 1:1.8 Specimen Drawn By jackie obrien Lactic Acid Level 2.2 *H 0.4-2.0 mmol/L Test 08/17/24 03:15 08/16/24 22:25 08/16/24 12:55 08/16/24 12:40 Range/Units Sodium Level 123 L 136-145 mmol/L Potassium Level 3.8 3.5-5.1 mmol/L Chloride Level 97 L 98-107 mmol/L Carbon Dioxide Level 17 L 20-31 mmol/L Anion Gap 9 5-15 Blood Urea Nitrogen 11 9-23 mg/dL Creatinine 0.70 0.550-1.02 mg/dL Glomerular Filtration Rate Calc 118 >90 mL/min BUN/Creatinine Ratio 15.7 10.0-20.0 Serum Glucose 218 H 74-106 mg/dL Calcium Level 5.1 *L 8.7-10.4 mg/dL Phosphorus Level 0.7 L 2.4-5.1 mg/dL Magnesium Level 1.6 1.6-2.6 mg/dL Total Bilirubin 1.3 H 0.2-1.0 mg/dL Aspartate Amino Transferase (AST) 49 H 13-40 U/L Alanine Aminotransferase (ALT) < 9 7-40 U/L Alkaline Phosphatase 27 L 46-116 U/L Total Protein 5.2 L 5.7-8.2 g/dL Albumin 3.5 3.2-4.8 g/dL White Blood Count 5.7 # 4.4-10.8 10^3/uL Red Blood Count 2.93 L 4.0-5.20 10^6/uL Hemoglobin 8.5 #L 12.2-16.2 g/dL Hematocrit 24.4 #L 36.0-46.0 % Mean Corpuscular Volume 83.2 80.0-100.0 fL Mean Corpuscular Hemoglobin 29.0 28.0-32.0 pg Mean Corpuscular Hemoglobin Concent 34.9 32.0-36.0 g/dL Red Cell Distribution Width 15.7 H 11.8-14.3 % Platelet Count 121 L 140-450 10^3/uL Mean Platelet Volume 8.1 6.9-10.8 fL Neutrophils (%) (Auto) 37.0-80.0 % Lymphocytes (%) (Auto) 10.0-50.0 % Monocytes (%) (Auto) 0.0-12.0 % Basophils (%) (Auto) 0.0-2.0 % Neutrophils # (Auto) 1.6-8.6 10 ^3/uL Lymphocytes # (Auto) 0.4-5.4 10 ^3/uL Monocytes # (Auto) 0-1.3 10 ^3/uL Differential Total Cells Counted 100.0 100 Neutrophils % (Manual) 57 37.0-80.0 Band Neutrophils % (Manual) 8 Lymphocytes % (Manual) 30 10.0-50.0 Monocytes % (Manual) 5 0-12 Eosinophils % (Manual) 0 0-7 Basophils % (Manual) 0 0.0-2.0 Metamyelocytes % (manual) 0 Myelocytes % (Manual) 0 Promyelocytes % (Manual) 0 Blast Cells % (Manual) 0 Reactive Lymphocytes 0 Platelet Estimate Decreased Urine Creatinine 242.96 H 30.0-125.0 mg/dL Urine Protein/Creatinine Ratio 1.09 Urine Sodium 13 L 40-220 mmol/L Urine Total Protein 265.4 H 1-14 mg/dL Urine Opiates Screen Pos NEGATIVE Urine Fentanyl Screen Pos NEGATIVE Urine Barbiturates Screen Neg NEGATIVE Urine Phencyclidine Screen Neg NEGATIVE Urine Amphetamines Screen Neg NEGATIVE Urine Benzodiazepines Screen Pos NEGATIVE Urine Cocaine Screen Neg NEGATIVE Urine Cannabinoids Screen Neg NEGATIVE Eosinophils (%) (Auto) 0.4 0.0-7.0 % Eosinophils # (Auto) 0.1 0-0.8 10 ^3/uL Basophils # (Auto) 0 0-0.2 10 ^3/uL Nucleated Red Blood Cells 0.1 % Test 08/16/24 12:35 08/16/24 06:30 08/16/24 06:27 08/15/24 21:40 Range/Units Blood Gas Critical Value Read Back yes Blood Gas Notified Whom debra Davidson md Blood Gas Notified Time [id number] Blood Gas Notified By Venous Blood pH 7.384 7.320-7.430 Venous Blood pCO2 at Patient Temp 34.4 L 38.0-54.0 mmHg Venous Blood pO2 at Patient Temp < 36.5 23.0-48.0 mmHg Venous Blood HCO3 20.1 L 22.0-29.0 mmol/L Venous Blood Base Excess -4.1 L -2.0-3.0 mmol/L Lipase 202 H 12-53 U/L Red Blood Cell Morphology Normal Test 08/15/24 16:12 08/15/24 13:25 08/15/24 07:00 08/14/24 21:45 Range/Units Lactate Dehydrogenase 1370 H 120-246 U/L Beta HCG, Quantitative 0.3 L 1.5-4.2 mIU/mL Parathyroid Hormone (Intact) 346.2 H 18.4-80.1 pg/mL Beta-Hydroxybutyric Acid 0.358 < 0.4 mmol/L Hemoglobin A1c 4.9 <5.7 % A1C Cholesterol Level 398 H < 200 mg/dL LDL Cholesterol < 100 mg/dL HDL Cholesterol 21 L 40-59 mg/dL Vitamin B12 Level 945 H 211-911 pg/mL Vitamin D 25-Hydroxy 4.4 L 30.0-100 ng/mL Thyroid Stimulating Hormone (TSH) 0.74 0.55-4.78 uIU/mL Plasma/Serum Blood Alcohol 3.4 <10 mg/dL Test 08/14/24 12:35 08/14/24 12:07 Range/Units Stomatocytes Few Urine Color Colorless Yellow Urine Clarity Clear Clear Urine pH 5.5 5.0-9.0 Urine Specific [place] 1.013 1.001-1.035 Urine Protein Negative Negative Urine Ketones Negative Negative Urine Blood 1+ H Negative /uL Urine Nitrite Negative Negative Urine Bilirubin Negative Negative Urine Urobilinogen Normal Negative mg/dL Urine Leukocyte Esterase Negative Negative /uL Urine RBC 3 0 - 4 /hpf Urine WBC <1 0 - 5 /hpf Urine Squamous Epithelial Cells Few <5 /hpf Urine Bacteria Few H None Seen /hpf Urine Glucose Normal Normal mg/dL Microbiology Date/Time Source Procedure Growth Status 08/16/24 01:00 Urine - Midstream Clean Catch Urine Culture - Preliminary Resulted 08/15/24 13:32 Nose MRSA Screen - Final Complete 08/15/24 10:33 Blood Blood Culture - Preliminary NO GROWTH AFTER 48 HOURS OF INCUBATION. Resulted Assessment PATIENT INTUBATED AND SEDATED, HER MOTHER AND BOYFRIEND AT BEDSIDE, BOYFRIEND STATES THAT PATIENT HAD SIGNIFICANT ALCOHOL INTAKE AND DEVELOPED ABDOMINAL PAIN, SURGERY BEING CONSULTED TO EVALUATE FOR ABDOMINAL HYPERTENSION. PRESSURES BEING MONITORED PER [facility] CATHETER,(SHOULD BE CHECKED Q 6 HOURS0 I HAVE ORDERED NGT TO BE PLACED TO CONTINUOUS SUCTION AND A RECTAL TUBE TO BE INSERTED, PARACENTESIS BY RADIOLOGISTS SHOULD BE CONSIDERED, CALL ME IF ABDOMINAL PRESSURES EXCEED 25 MM OF Hg. Plan discussed with: Spouse, Other MARILYN OJEDA MD Aug 17, 2024 12:25
[2024-08-17] MEDS: CALCITRIOL 1 MCG/ML AMPULE IV SCH (12:56)
[2024-08-17 13:32] LABS: Base Excess -11.3 mmol/L (-2.0-3.0)
--- NOTE | 2024-08-17 14:38 | DVHINCON2 ---
Date of service: Aug 17, 2024 Referring Physician Covering for Dr Bang/ Dr Bedolla Reason for Consultation Acute hypoxic respiratory failure, mechanical ventilator management History of Present Illness 34-year-old woman with no prior medical history presented with a chief complaint of severe epigastric pain. She began having symptoms after she ate pizza. She began having watery diarrhea without blood. In the morning she developed severe epigastric pain. He was crampy in nature. It has spread to the entire abdomen. He was associated with nausea and vomiting. She also noted chills. This prompted her visit to the emergency department. Patient developed respiratory distress. She required emergent intubation and placement on mechanical ventilator. Pulmonary consultation is now called for acute hypoxic respiratory failure on mechanical ventilator management. Review of systems: Unable to obtain due to patient's critical condition. Past medical history: Hyperlipidemia Past surgical history: None mentioned in prior surgeries. Medications: Reviewed Allergies: Fenofibric, vancomycin Family history: No family history of premature CAD. No family history of lung disease Social history: Social alcohol use. Non-smoker. No other illicit drug use. Lives with a roommate. Family History: Hypercholesterolemia G8 MOTHER G8 FATHER Allergies: Coded Allergies: Fenofibrate (Verified Allergy, Intermediate, REDNESS/ITCHINESS, 08/15/24) Vancomycin (Verified Allergy, Intermediate, 08/15/24) FLUSHING/ GENERALIZED REDNESS Home Meds Reported Medications Atorvastatin Calcium (ATORVASTATIN CALCIUM) 40 Mg Tab, 1 TAB PO DAILY 08/14/24 Current Medications Current Medications Medications (Trade) Dose Ordered Sig/Snow Route PRN Reason Start Time Stop Time Status Last Admin Meropenem 50 ml @ 17 mls/hr Q8H IV 08/16/24 21:00 08/17/24 05:28 Potassium Chloride 100 ml @ 50 mls/hr Q2H IV 08/16/24 15:00 08/16/24 18:59 DC 08/16/24 17:00 Furosemide (Lasix Injection) 40 mg DAILY IV 08/17/24 10:00 08/17/24 10:34 Albumin Human 100 ml @ 100 mls/hr Q8H IV 08/16/24 16:30 08/17/24 09:29 DC 08/17/24 10:35 Dexmedetomidine HCl 400 mcg/ Dextrose 100 ml @ 3.695 mls/ hr Q24H IV 08/17/24 02:45 08/17/24 03:15 Acetaminophen (Tylenol Suppository) 650 mg Q8HPRN PRN AL PAIN SCALE 1-3 OR TEMP>100.4 08/17/24 04:15 08/17/24 04:24 Calcium Gluconate/ Sodium Chloride 50 ml @ 100 mls/hr Q30M IV 08/17/24 06:00 08/17/24 06:59 DC Magnesium Sulfate/ Dextrose 100 ml @ 100 mls/hr Q1HR IV 08/17/24 06:00 08/17/24 07:59 DC 08/17/24 10:34 Magnesium Sulfate/ Dextrose 100 ml @ 100 mls/hr Q1HR IV 08/17/24 10:00 08/17/24 11:59 DC 08/17/24 12:57 Calcitriol (Calcitriol Injectable) 1 mcg EOD IV 08/17/24 10:00 08/17/24 12:56 Norepinephrine Bitartrate 250 ml @ 3.75 mls/hr Q24H IV 08/17/24 09:30 08/17/24 09:53 Norepinephrine Bitartrate 250 ml @ 3.75 mls/hr Q24H IV 08/17/24 10:00 08/17/24 09:51 DC Vital Signs Vital Signs Date Time Temp Pulse Resp B/P (MAP) Pulse Ox O2 Delivery O2 Flow Rate FiO2 08/17/24 13:11 92 24 109/34 (59) 100 40 08/17/24 10:45 95.4 203.7 08/17/24 06:00 Mechanical Ventilator+ 08/16/24 08:00 0 Physical Exam Gen.: Patient lying in bed in medical ICU. Sedated, intubated on mechanical ventilator. Head: Normocephalic, atraumatic. Eyes: PERRLA. Ears: Normal external anatomy. Throat: Endotracheal tube and orogastric tube in place. Neck: Supple, trachea midline. Chest: Transmitted breath sounds bilaterally. Decreased air entry bilaterally. No wheezing. Bibasilar crackles. Cardio vascular: Positive S1, positive S2. Regular rate and rhythm. Abdomen: Positive bowel sounds in all 4 quadrants. Soft, nontender, distended. : Sparrow in place. Normal external genitalia. Rectal: Deferred Skin: Warm, dry. Intact. Extremities: 2+ radial pulses bilaterally. No lower extremity edema. Neuro: Sedated. Labs/Diagnostic Data Labs Test 08/17/24 12:51 08/17/24 10:35 08/17/24 09:10 08/17/24 05:33 Range/Units POC Glucose 150 H 70-106 mg/dl Blood Gas Specimen Type Arterial Blood Gas Sample Site Arterial line Blood Gas Patient Temperature 37.0 Arterial Blood Date Drawn [id number] Arterial Blood pH 7.293 L 7.350-7.450 Arterial Blood Partial Pressure CO2 29.8 L 32.0-45.0 mmHg Arterial Blood Partial Pressure O2 139.7 H 83.0-108.0 mmHg Arterial Blood HCO3 14.1 L 21.0-28.0 mmol/L Arterial Blood Oxygen Saturation 98.7 H 94.0-98.0 % Arterial Blood Base Excess -11.3 L -2.0-3.0 mmol/L Arterial Blood Oxyhemoglobin 96.7 94.0-98.0 % Arterial Blood Carboxyhemoglobin 0.8 0.5-1.5 % Arterial Blood Methemoglobin 1.2 0.0-1.5 % Homer Test N/a Blood Gas Total Hemoglobin 7.30 L 12.0-16.0 g/dL Blood Gas Set Respiration Rate 22.0 Blood Gas Modality Vent - ac Blood Gas Spontaneous Rate 23 FiO2 % 40.0 Blood Gas Tidal Volume 450.0 Blood Gas Inspiratory Pressure 32.0 Blood Gas PEEP or CPAP 5.0 Bl Gas Inspiratory/Expiratory Ratio 1:1.8 Specimen Drawn By jackie obrien Prothrombin Time 14.3 H 9.3-11.8 sec Prothrombin Time INR 1.38 H 0.9-1.15 Activated Partial Thromboplast Time 51.6 H 24.5-34.5 SEC Triglycerides Level 725 H < 150 mg/dL Lactic Acid Level 2.2 *H 0.4-2.0 mmol/L Test 08/17/24 03:15 08/16/24 22:25 08/16/24 12:55 08/16/24 12:40 Range/Units Sodium Level 123 L 136-145 mmol/L Potassium Level 3.8 3.5-5.1 mmol/L Chloride Level 97 L 98-107 mmol/L Carbon Dioxide Level 17 L 20-31 mmol/L Anion Gap 9 5-15 Blood Urea Nitrogen 11 9-23 mg/dL Creatinine 0.70 0.550-1.02 mg/dL Glomerular Filtration Rate Calc 118 >90 mL/min BUN/Creatinine Ratio 15.7 10.0-20.0 Serum Glucose 218 H 74-106 mg/dL Calcium Level 5.1 *L 8.7-10.4 mg/dL Phosphorus Level 0.7 L 2.4-5.1 mg/dL Magnesium Level 1.6 1.6-2.6 mg/dL Total Bilirubin 1.3 H 0.2-1.0 mg/dL Aspartate Amino Transferase (AST) 49 H 13-40 U/L Alanine Aminotransferase (ALT) < 9 7-40 U/L Alkaline Phosphatase 27 L 46-116 U/L Total Protein 5.2 L 5.7-8.2 g/dL Albumin 3.5 3.2-4.8 g/dL White Blood Count 5.7 # 4.4-10.8 10^3/uL Red Blood Count 2.93 L 4.0-5.20 10^6/uL Hemoglobin 8.5 #L 12.2-16.2 g/dL Hematocrit 24.4 #L 36.0-46.0 % Mean Corpuscular Volume 83.2 80.0-100.0 fL Mean Corpuscular Hemoglobin 29.0 28.0-32.0 pg Mean Corpuscular Hemoglobin Concent 34.9 32.0-36.0 g/dL Red Cell Distribution Width 15.7 H 11.8-14.3 % Platelet Count 121 L 140-450 10^3/uL Mean Platelet Volume 8.1 6.9-10.8 fL Neutrophils (%) (Auto) 37.0-80.0 % Lymphocytes (%) (Auto) 10.0-50.0 % Monocytes (%) (Auto) 0.0-12.0 % Basophils (%) (Auto) 0.0-2.0 % Neutrophils # (Auto) 1.6-8.6 10 ^3/uL Lymphocytes # (Auto) 0.4-5.4 10 ^3/uL Monocytes # (Auto) 0-1.3 10 ^3/uL Differential Total Cells Counted 100.0 100 Neutrophils % (Manual) 57 37.0-80.0 Band Neutrophils % (Manual) 8 Lymphocytes % (Manual) 30 10.0-50.0 Monocytes % (Manual) 5 0-12 Eosinophils % (Manual) 0 0-7 Basophils % (Manual) 0 0.0-2.0 Metamyelocytes % (manual) 0 Myelocytes % (Manual) 0 Promyelocytes % (Manual) 0 Blast Cells % (Manual) 0 Reactive Lymphocytes 0 Platelet Estimate Decreased Urine Creatinine 242.96 H 30.0-125.0 mg/dL Urine Protein/Creatinine Ratio 1.09 Urine Sodium 13 L 40-220 mmol/L Urine Total Protein 265.4 H 1-14 mg/dL Urine Opiates Screen Pos NEGATIVE Urine Fentanyl Screen Pos NEGATIVE Urine Barbiturates Screen Neg NEGATIVE Urine Phencyclidine Screen Neg NEGATIVE Urine Amphetamines Screen Neg NEGATIVE Urine Benzodiazepines Screen Pos NEGATIVE Urine Cocaine Screen Neg NEGATIVE Urine Cannabinoids Screen Neg NEGATIVE Eosinophils (%) (Auto) 0.4 0.0-7.0 % Eosinophils # (Auto) 0.1 0-0.8 10 ^3/uL Basophils # (Auto) 0 0-0.2 10 ^3/uL Nucleated Red Blood Cells 0.1 % Test 08/16/24 12:35 08/16/24 06:30 08/16/24 06:27 08/15/24 21:40 Range/Units Blood Gas Critical Value Read Back yes Blood Gas Notified Whom debra Davidson md Blood Gas Notified Time [id number] Blood Gas Notified By Venous Blood pH 7.384 7.320-7.430 Venous Blood pCO2 at Patient Temp 34.4 L 38.0-54.0 mmHg Venous Blood pO2 at Patient Temp < 36.5 23.0-48.0 mmHg Venous Blood HCO3 20.1 L 22.0-29.0 mmol/L Venous Blood Base Excess -4.1 L -2.0-3.0 mmol/L Lipase 202 H 12-53 U/L Red Blood Cell Morphology Normal Test 08/15/24 16:12 08/15/24 13:25 08/15/24 07:00 08/14/24 21:45 Range/Units Lactate Dehydrogenase 1370 H 120-246 U/L Beta HCG, Quantitative 0.3 L 1.5-4.2 mIU/mL Parathyroid Hormone (Intact) 346.2 H 18.4-80.1 pg/mL Beta-Hydroxybutyric Acid 0.358 < 0.4 mmol/L Hemoglobin A1c 4.9 <5.7 % A1C Cholesterol Level 398 H < 200 mg/dL LDL Cholesterol < 100 mg/dL HDL Cholesterol 21 L 40-59 mg/dL Vitamin B12 Level 945 H 211-911 pg/mL Vitamin D 25-Hydroxy 4.4 L 30.0-100 ng/mL Thyroid Stimulating Hormone (TSH) 0.74 0.55-4.78 uIU/mL Plasma/Serum Blood Alcohol 3.4 <10 mg/dL Test 08/14/24 12:35 08/14/24 12:07 Range/Units Stomatocytes Few Urine Color Colorless Yellow Urine Clarity Clear Clear Urine pH 5.5 5.0-9.0 Urine Specific [place] 1.013 1.001-1.035 Urine Protein Negative Negative Urine Ketones Negative Negative Urine Blood 1+ H Negative /uL Urine Nitrite Negative Negative Urine Bilirubin Negative Negative Urine Urobilinogen Normal Negative mg/dL Urine Leukocyte Esterase Negative Negative /uL Urine RBC 3 0 - 4 /hpf Urine WBC <1 0 - 5 /hpf Urine Squamous Epithelial Cells Few <5 /hpf Urine Bacteria Few H None Seen /hpf Urine Glucose Normal Normal mg/dL Microbiology Date/Time Source Procedure Growth Status 08/16/24 11:57 Sputum Gram Stain Pending Resulted 08/16/24 11:57 Sputum Respiratory Culture - Preliminary Resulted 08/16/24 01:00 Urine - Midstream Clean Catch Urine Culture - Preliminary Resulted 08/15/24 13:32 Nose MRSA Screen - Final Complete 08/15/24 10:33 Blood Blood Culture - Preliminary NO GROWTH AFTER 48 HOURS OF INCUBATION. Resulted Assessment Impression: Acute hypoxic respiratory failure On mechanical ventilator Hypertriglyceridemia induced acute pancreatitis Hypocalcemia Hypophosphatemia Peritonitis Acute abdomen Ascites Hyponatremia due to hypotonic IV fluid Vitamin-D deficiency Hypomagnesemia Hyperparathyroidism immune [place] diffuse plasmapheresis Lactic acidosis, improving Plan: s/p intubation on mechanical ventilator CXR image and report reviewed. Devices in place. Multifocal airspace opacities. ABG reviewed. Acidemia due to metabolic acidosis. Currently on assist control with respiratory rate of 22, tidal volume 450, peep of five, FiO2 of 40%. Titrate FIO2 to keep O2 saturation above 92%. VAP bundle Daily ABG and CXR while intubated. Sedate for ventilatory synchrony: On fentanyl and Versed drips. Also on Precedex drip. Start pressors for hemodynamic support if necessary. Keep MAP above 65 mmHg/SBP above 90 mmHg. Continue broad spectrum antibiotics. F/u cultures. Monitor renal function due to Acute kidney injury. Monitor electrolytes. Supplement as necessary. Received calcium gluconate Potassium, calcium and magnesium were supplemented. Continue IV fluids Accu-cheks, on insulin drip. Abdomen was severely distended. Limited ultrasound of the abdomen revealed no pocket amenable for paracentesis. Recommended for RN to check bladder pressure every 6 hours. Currently it was 16 mmHg. Surgery recommendations appreciated purulent we will consider emergent surgery of the abdominal pressures exceeding 25 mmHg. GI/DVT prophylaxis. Condition: Critical Prognosis: Poor given multiple comorbidities. Rest of plan per hospitalist and other consultants. A total of 35 minutes of critical care time was spent reviewing the patient record, examining the patient, making a diagnostic and therapeutic plan, discussing this plan with the medical personnel, following up on diagnostic studies and following the patient for clinical stability excluding any and all procedures. At least 50% of this time was spent in direct, [id number] contact. Thank you Dr. Bedolla for allowing me to participate in this patient's care. Further recommendations will depend on patient's clinical course. Please do not hesitate to contact me if you have any questions or concerns. This medical document was created using an electronic medical record system with [employer] computerized dictation system. Although this document has been carefully reviewed, there may still be some phonetic and typographical errors. These areas are purely typographical due to imperfections of the software programs, and do not reflect any compromise in the patient's medical care. Plan discussed with: Other (ANDRES Downey MD, RT) JUDE REN MD Aug 17, 2024 14:38
[2024-08-17 15:00] LABS: Albumin 3.1 g/dL (3.2-4.8); Alkaline Phosphatase 27 U/L (46-116); Anion Gap 7 (5-15); Aspartate Aminotransferase 54 U/L (13-40); BUN/Creatinine Ratio 13.5 (10.0-20.0); Bilirubin, Total 1.1 mg/dL (0.2-1.0); Blood Urea Nitrogen 13 mg/dL (9-23); Carbon Dioxide 17 mmol/L (20-31); Chloride 96 mmol/L (98-107); Glucose 236 mg/dL (74-106); Potassium 4.2 mmol/L (3.5-5.1); Sodium 120 mmol/L (136-145); Total Protein 4.6 g/dL (5.7-8.2)
[2024-08-17 15:06] LABS: Alanine Aminotransferase < 9 U/L (7-40)
[2024-08-17 15:08] LABS: Calcium 4.2 mg/dL (8.7-10.4)
[2024-08-17 16:06] LABS: Base Excess -11.1 mmol/L (-2.0-3.0)
[2024-08-17] MEDS: CALCIUM GLUC 1,000mg/50ml-NS 50 ML IV SCH (18:16)
[2024-08-17 19:06] LABS: Base Excess -10.9 mmol/L (-2.0-3.0)
[2024-08-17] MEDS: CALCIUM GLUC 1,000mg/50ml-NS 50 ML IV ONE (21:16)
[2024-08-17 22:16] LABS: Basophils # (auto) 0 10 ^3/uL (0-0.2); Basophils % (auto) 0.3 % (0.0-2.0); Eosinophils # (auto) 0.2 10 ^3/uL (0-0.8); Eosinophils % (auto) 2.6 % (0.0-7.0); Lymphocytes # (auto) 1.4 10 ^3/uL (0.4-5.4); Nucleated Red Blood Cells % 0.1 %; Platelet Count (auto) 123 10^3/uL (140-450)
[2024-08-17 22:18] LABS: Hematocrit 18.5 % (36.0-46.0); Lymphocytes % (auto) 16.1 % (10.0-50.0); Mean Corpuscular Hemoglobin 29.2 pg (28.0-32.0); Mean Corpuscular Hgb Conc. 34.3 g/dL (32.0-36.0); Monocytes # (auto) 0.6 10 ^3/uL (0-1.3); Monocytes % (auto) 6.9 % (0.0-12.0); Neutrophils # (auto) 6.3 10 ^3/uL (1.6-8.6); Neutrophils % (auto) 74.1 % (37.0-80.0); Red Blood Cells 2.17 10^6/uL (4.0-5.20); Red Cell Distribution Width 15.5 % (11.8-14.3); White Blood Cell 8.5 10^3/uL (4.4-10.8)
[2024-08-17 22:28] LABS: Hemoglobin 6.3 g/dL (12.2-16.2)
[2024-08-17 22:33] LABS: Albumin 2.9 g/dL (3.2-4.8); Alkaline Phosphatase 35 U/L (46-116); Anion Gap 5 (5-15); Aspartate Aminotransferase 60 U/L (13-40); BUN/Creatinine Ratio 11.5 (10.0-20.0); Blood Urea Nitrogen 13 mg/dL (9-23); Carbon Dioxide 18 mmol/L (20-31); Chloride 96 mmol/L (98-107); Glucose 305 mg/dL (74-106); Potassium 4.2 mmol/L (3.5-5.1)
[2024-08-17 22:34] LABS: Total Protein 4.7 g/dL (5.7-8.2)
[2024-08-17 22:42] LABS: Alanine Aminotransferase 9 U/L (7-40)
[2024-08-17 22:44] LABS: Calcium 4.6 mg/dL (8.7-10.4); Sodium 119 mmol/L (136-145)
[2024-08-17] MEDS: SODIUM FERR GLUC 62.5MG/5ML 110 ML IV SCH (22:48)
[2024-08-17] MEDS: SODIUM FERRIC GLUC CPLEX 62.5MG/5ML VIAL IV ONE (22:48)
[2024-08-17 22:52] LABS: Platelet Estimate Decreased
[2024-08-17 22:53] LABS: Large Platelets FEW
[2024-08-17 23:20] LABS: Magnesium 2.3 mg/dL (1.6-2.6)
[2024-08-17 23:22] LABS: Phosphorus 2.8 mg/dL (2.4-5.1)
[2024-08-18] VITALS (105 sets, daily range): BP systolic 97–236; BP diastolic 29–195; PULSE 82–120; RESP 14–28; TEMP 97.3–100.4; O2SAT 94–100
[2024-08-18] MEDS: CALCIUM GLUC 1,000mg/50ml-NS 50 ML IV SCH ×2 (00:20→06:47)
[2024-08-18] MEDS: SODIUM CHL 3% 500 ML IV ONE (00:21)
--- NOTE | 2024-08-18 02:06 | DVHINCON2 ---
Date of service: Aug 18, 2024 Family History: Hypercholesterolemia G8 MOTHER G8 FATHER Allergies: Coded Allergies: Fenofibrate (Verified Allergy, Intermediate, REDNESS/ITCHINESS, 08/15/24) Vancomycin (Verified Allergy, Intermediate, 08/15/24) FLUSHING/ GENERALIZED REDNESS Home Meds Reported Medications Atorvastatin Calcium (ATORVASTATIN CALCIUM) 40 Mg Tab, 1 TAB PO DAILY 08/14/24 Current Medications Current Medications Medications (Trade) Dose Ordered Sig/Snow Route PRN Reason Start Time Stop Time Status Last Admin Furosemide (Lasix Injection) 40 mg DAILY IV 08/17/24 10:00 08/17/24 10:34 Dexmedetomidine HCl 400 mcg/ Dextrose 100 ml @ 3.695 mls/ hr Q24H IV 08/17/24 02:45 08/17/24 03:15 Acetaminophen (Tylenol Suppository) 650 mg Q8HPRN PRN MA PAIN SCALE 1-3 OR TEMP>100.4 08/17/24 04:15 08/17/24 04:24 Calcium Gluconate/ Sodium Chloride 50 ml @ 100 mls/hr Q30M IV 08/17/24 06:00 08/17/24 06:59 DC 08/17/24 21:16 Magnesium Sulfate/ Dextrose 100 ml @ 100 mls/hr Q1HR IV 08/17/24 06:00 08/17/24 07:59 DC 08/17/24 10:34 Magnesium Sulfate/ Dextrose 100 ml @ 100 mls/hr Q1HR IV 08/17/24 10:00 08/17/24 11:59 DC 08/17/24 12:57 Calcitriol (Calcitriol Injectable) 1 mcg EOD IV 08/17/24 10:00 08/17/24 12:56 Norepinephrine Bitartrate 250 ml @ 3.75 mls/hr Q24H IV 08/17/24 09:30 08/17/24 09:53 Norepinephrine Bitartrate 250 ml @ 3.75 mls/hr Q24H IV 08/17/24 10:00 08/17/24 09:51 DC Magnesium Sulfate/ Dextrose 100 ml @ 100 mls/hr Q1HR IV 08/17/24 14:45 08/17/24 14:59 DC 08/17/24 14:57 Ferric Sodium Gluconate Complex 110 ml @ 110 mls/hr DAILY@1200 IV 08/18/24 12:00 11/14/24 12:59 08/17/24 22:48 Calcium Gluconate/ Sodium Chloride 50 ml @ 100 mls/hr Q30M IV 08/18/24 00:00 08/18/24 00:59 DC 08/18/24 01:07 Vital Signs Vital Signs Date Time Temp Pulse Resp B/P (MAP) Pulse Ox O2 Delivery O2 Flow Rate FiO2 08/18/24 00:02 97 25 122/58 (79) 99 40 08/18/24 00:00 Mechanical Ventilator+ 08/17/24 23:30 99.5 211.1 08/16/24 08:00 0 Labs/Diagnostic Data Labs Test 08/17/24 22:10 08/17/24 21:55 08/17/24 18:48 08/17/24 14:53 Range/Units Blood Gas Specimen Type Arterial Blood Gas Sample Site Arterial line Blood Gas Patient Temperature 37.0 Arterial Blood Date Drawn [id number] Arterial Blood pH 7.290 L 7.350-7.450 Arterial Blood Partial Pressure CO2 30.9 L 32.0-45.0 mmHg Arterial Blood Partial Pressure O2 135.0 H 83.0-108.0 mmHg Arterial Blood HCO3 14.5 L 21.0-28.0 mmol/L Arterial Blood Oxygen Saturation 98.6 H 94.0-98.0 % Arterial Blood Base Excess -11.0 L -2.0-3.0 mmol/L Arterial Blood Oxyhemoglobin 96.5 94.0-98.0 % Arterial Blood Carboxyhemoglobin 0.6 0.5-1.5 % Arterial Blood Methemoglobin 1.5 0.0-1.5 % Homer Test N/a Blood Gas Total Hemoglobin 6.60 *L 12.0-16.0 g/dL Blood Gas Set Respiration Rate 22.0 Blood Gas Modality Vent - ac FiO2 % 40.0 Blood Gas Tidal Volume 450.0 Blood Gas PEEP or CPAP 5.0 Blood Gas Critical Value Read Back Yes Blood Gas Notified Whom Keyonna white Blood Gas Notified Time [id number] Blood Gas Notified By Marques meneses White Blood Count 8.5 # 4.4-10.8 10^3/uL Red Blood Count 2.17 L 4.0-5.20 10^6/uL Hemoglobin 6.3 #*L 12.2-16.2 g/dL Hematocrit 18.5 #L 36.0-46.0 % Mean Corpuscular Volume 85.0 80.0-100.0 fL Mean Corpuscular Hemoglobin 29.2 28.0-32.0 pg Mean Corpuscular Hemoglobin Concent 34.3 32.0-36.0 g/dL Red Cell Distribution Width 15.5 H 11.8-14.3 % Platelet Count 123 L 140-450 10^3/uL Mean Platelet Volume 8.3 6.9-10.8 fL Neutrophils (%) (Auto) 74.1 37.0-80.0 % Lymphocytes (%) (Auto) 16.1 10.0-50.0 % Monocytes (%) (Auto) 6.9 0.0-12.0 % Eosinophils (%) (Auto) 2.6 0.0-7.0 % Basophils (%) (Auto) 0.3 0.0-2.0 % Neutrophils # (Auto) 6.3 1.6-8.6 10 ^3/uL Lymphocytes # (Auto) 1.4 0.4-5.4 10 ^3/uL Monocytes # (Auto) 0.6 0-1.3 10 ^3/uL Eosinophils # (Auto) 0.2 0-0.8 10 ^3/uL Basophils # (Auto) 0 0-0.2 10 ^3/uL Nucleated Red Blood Cells 0.1 % Platelet Estimate Decreased Large Platelets Few Sodium Level 119 *L 136-145 mmol/L Potassium Level 4.2 3.5-5.1 mmol/L Chloride Level 96 L 98-107 mmol/L Carbon Dioxide Level 18 L 20-31 mmol/L Anion Gap 5 5-15 Blood Urea Nitrogen 13 9-23 mg/dL Creatinine 1.13 H 0.550-1.02 mg/dL Glomerular Filtration Rate Calc 66 >90 mL/min BUN/Creatinine Ratio 11.5 10.0-20.0 Serum Glucose 305 H 74-106 mg/dL Lactic Acid Level 2.0 0.4-2.0 mmol/L Calcium Level 4.6 *L 8.7-10.4 mg/dL Phosphorus Level 2.8 2.4-5.1 mg/dL Magnesium Level 2.3 1.6-2.6 mg/dL Total Bilirubin 1.0 0.2-1.0 mg/dL Aspartate Amino Transferase (AST) 60 H 13-40 U/L Alanine Aminotransferase (ALT) 9 7-40 U/L Alkaline Phosphatase 35 L 46-116 U/L Total Protein 4.7 L 5.7-8.2 g/dL Albumin 2.9 L 3.2-4.8 g/dL Triglycerides Level 637 H < 150 mg/dL POC Glucose 287 H 70-106 mg/dl Blood Gas Spontaneous Rate 14 Blood Gas Inspiratory Pressure 15.0 Bl Gas Inspiratory/Expiratory Ratio 1:3.1 Specimen Drawn By jackie rt Test 08/17/24 09:10 08/16/24 22:25 08/16/24 12:55 08/16/24 06:30 Range/Units Prothrombin Time 14.3 H 9.3-11.8 sec Prothrombin Time INR 1.38 H 0.9-1.15 Activated Partial Thromboplast Time 51.6 H 24.5-34.5 SEC Differential Total Cells Counted 100.0 100 Neutrophils % (Manual) 57 37.0-80.0 Band Neutrophils % (Manual) 8 Lymphocytes % (Manual) 30 10.0-50.0 Monocytes % (Manual) 5 0-12 Eosinophils % (Manual) 0 0-7 Basophils % (Manual) 0 0.0-2.0 Metamyelocytes % (manual) 0 Myelocytes % (Manual) 0 Promyelocytes % (Manual) 0 Blast Cells % (Manual) 0 Reactive Lymphocytes 0 Urine Creatinine 242.96 H 30.0-125.0 mg/dL Urine Protein/Creatinine Ratio 1.09 Urine Sodium 13 L 40-220 mmol/L Urine Total Protein 265.4 H 1-14 mg/dL Urine Opiates Screen Pos NEGATIVE Urine Fentanyl Screen Pos NEGATIVE Urine Barbiturates Screen Neg NEGATIVE Urine Phencyclidine Screen Neg NEGATIVE Urine Amphetamines Screen Neg NEGATIVE Urine Benzodiazepines Screen Pos NEGATIVE Urine Cocaine Screen Neg NEGATIVE Urine Cannabinoids Screen Neg NEGATIVE Venous Blood pH 7.384 7.320-7.430 Venous Blood pCO2 at Patient Temp 34.4 L 38.0-54.0 mmHg Venous Blood pO2 at Patient Temp < 36.5 23.0-48.0 mmHg Venous Blood HCO3 20.1 L 22.0-29.0 mmol/L Venous Blood Base Excess -4.1 L -2.0-3.0 mmol/L Test 11/8/24 06:27 08/15/24 21:40 08/15/24 16:12 08/15/24 13:25 Range/Units Lipase 202 H 12-53 U/L Red Blood Cell Morphology Normal Lactate Dehydrogenase 1370 H 120-246 U/L Beta HCG, Quantitative 0.3 L 1.5-4.2 mIU/mL Parathyroid Hormone (Intact) 346.2 H 18.4-80.1 pg/mL Test 08/15/24 07:00 08/14/24 21:45 08/14/24 12:35 08/14/24 12:07 Range/Units Beta-Hydroxybutyric Acid 0.358 < 0.4 mmol/L Hemoglobin A1c 4.9 <5.7 % A1C Cholesterol Level 398 H < 200 mg/dL LDL Cholesterol < 100 mg/dL HDL Cholesterol 21 L 40-59 mg/dL Vitamin B12 Level 945 H 211-911 pg/mL Vitamin D 25-Hydroxy 4.4 L 30.0-100 ng/mL Thyroid Stimulating Hormone (TSH) 0.74 0.55-4.78 uIU/mL Plasma/Serum Blood Alcohol 3.4 <10 mg/dL Stomatocytes Few Urine Color Colorless Yellow Urine Clarity Clear Clear Urine pH 5.5 5.0-9.0 Urine Specific [place] 1.013 1.001-1.035 Urine Protein Negative Negative Urine Ketones Negative Negative Urine Blood 1+ H Negative /uL Urine Nitrite Negative Negative Urine Bilirubin Negative Negative Urine Urobilinogen Normal Negative mg/dL Urine Leukocyte Esterase Negative Negative /uL Urine RBC 3 0 - 4 /hpf Urine WBC <1 0 - 5 /hpf Urine Squamous Epithelial Cells Few <5 /hpf Urine Bacteria Few H None Seen /hpf Urine Glucose Normal Normal mg/dL Microbiology Date/Time Source Procedure Growth Status 08/16/24 11:57 Sputum Gram Stain - Final Resulted 08/16/24 11:57 Sputum Respiratory Culture - Preliminary Resulted 08/16/24 01:00 Urine - Midstream Clean Catch Urine Culture - Preliminary Resulted 08/15/24 13:32 Nose MRSA Screen - Final Complete 08/15/24 10:33 Blood Blood Culture - Preliminary NO GROWTH AFTER 48 HOURS OF INCUBATION. Resulted Assessment PATIENT INTUBATED AND SEDATED, HER MOTHER AND BOYFRIEND AT BEDSIDE, BOYFRIEND STATES THAT PATIENT HAD SIGNIFICANT ALCOHOL INTAKE AND DEVELOPED ABDOMINAL PAIN, SURGERY BEING CONSULTED TO EVALUATE FOR ABDOMINAL HYPERTENSION. PRESSURES BEING MONITORED PER [employer] CATHETER,(SHOULD BE CHECKED Q 6 HOURS0 I HAVE ORDERED NGT TO BE PLACED TO CONTINUOUS SUCTION AND A RECTAL TUBE TO BE INSERTED, PARACENTESIS BY RADIOLOGISTS SHOULD BE CONSIDERED, CALL ME IF ABDOMINAL PRESSURES EXCEED 25 MM OF Hg. 08/18/24 01:35 AM came in to evaluate patient as no hospital is willing to accept her in transfer, her abdominal pressure is reported as 22 mmHg, she is still making adequate urine volume but her creatinine is slightly elevated, her H/H is decreasing and I called her mother and explained in her qagan [place] Finnish(nurse witnessing) that if we have to operate on her if the abdominal pressure continues to rise, and we will not be given a permission to give her a transfusion, she will . will give Lasix, her Sodium is low , continue close monitoring, repeat CMP to recheck calcium electrolytes, check lactate level. Plan discussed with: Other MARILYN OJEDA MD Aug 18, 2024 02:06
[2024-08-18 02:39] LABS: Base Excess -11.7 mmol/L (-2.0-3.0)
[2024-08-18] MEDS: PHYTONADIONE (VIT K)10 MG/ML 1ML VIAL SUBCUT ONE (02:50)
[2024-08-18 03:37] LABS: Albumin 2.8 g/dL (3.2-4.8); Alkaline Phosphatase 36 U/L (46-116); Anion Gap 7 (5-15); Aspartate Aminotransferase 54 U/L (13-40); BUN/Creatinine Ratio 9.7 (10.0-20.0); Blood Urea Nitrogen 13 mg/dL (9-23); Carbon Dioxide 15 mmol/L (20-31); Chloride 94 mmol/L (98-107); Glucose 332 mg/dL (74-106); Total Protein 4.4 g/dL (5.7-8.2)
[2024-08-18 04:58] LABS: Lactic Acid w/Reflex 2.4 mmol/L (0.4-2.0)
[2024-08-18 04:59] LABS: Alanine Aminotransferase 9 U/L (7-40); Sodium 116 mmol/L (136-145)
[2024-08-18 05:03] LABS: INR 1.26 (0.9-1.15); Prothrombin Time 13.1 sec (9.3-11.8)
[2024-08-18 05:12] LABS: Partial Thromboplastin Time 75.9 SEC (24.5-34.5)
--- NOTE | 2024-08-18 05:31 | DVH ---
Examination: ABPL CLINICAL INDICATION: f/u pancreatitis, r/o abd.compartment syndrome COMPARISON: None. CONTRAST USED: None. TECHNIQUE: A plain CT study of the abdomen and pelvis is performed. The examination was performed w ith [address] scan done according to ALARA (As Low as Reasonably Achievable). Multiplana r reconstructions were obtained. FINDINGS: CT ABDOMEN: Lung Base: Yjvc-wa-iuulftye bilateral pleural effusion with adjacent lung atelectasis. Normal cardi ac size. No pericardial effusion. Central venous catheter with tip in the cavoatrial junction. Unenhanced Liver: Mild hepatomegaly with fatty infiltration of liver. No obvious focal lesion in li fede. There is no intrahepatic biliary radicle dilatation. Subtle hyperdensity within the gallbladder lumen probable excreted contrast. The common bile duct is not dilated. Unenhanced Pancreas: Diffusely edematous pancreas with significant peripancreatic fat stranding. Mi ld thickening of the bilateral anterior renal fascia. Changes of acute pancreatitis. No focal lesion is seen within. The peripancreatic fat-planes are normal. Unenhanced Spleen: Mild splenomegaly. No discrete focal lesion. Retroperitoneum: Both adrenal glands are normal in size and morphology in this unenhanced CT scan. There is no significant retroperitoneal lymphadenopathy. The kidneys are normal in size. No renal calculus or hydronephrosis. Diffuse bilateral perinephric fat stranding. Vessels: Aorta, IVC and the mesenteric vessels cannot be commented in this unenhanced CT scan. Stomach and Bowel: Nasogastric tube with tip in the distal gastric body. The bowel loops are unrema rkable. Jxoo-kh-jculigzv ascites. Skeletal System: Age-indeterminate anterior wedge compression fracture of the T12 vertebra with mini mal retropulsion of the posterior superior fracture fragment. Mild disc bulge at L5-S1 level. No si gnificant neural foraminal narrowing or nerve impingement. CT PELVIS: Appendix: Appendix is contrast filled. Appendix is identified and appears unremarkable. Colon: Flatus tube is identified. Large bowel loops appear unremarkable. Bladder: Urinary bladder is decompressed with Sparrow`s catheter within. Uterus and ovaries appear unremarkable. No adnexal mass. Right femoral venous catheter is identified with tip in the right external iliac vein. No pelvic lymphadenopathy is identified. IMPRESSION: 1. Diffusely edematous pancreas with significant peripancreatic fat stranding and mild thickening of the bilateral anterior renal and lateral coronal fascia. Changes of acute pancreatitis. Correlate with serum lipase/amylase levels. 2. Zjkp-xh-mzjcjzte ascites. Mild generalized anasarca. 3. Mild hepatomegaly with fatty infiltration of liver. Mild splenomegaly. No obvious focal lesion. 4. Nasogastric tube is identified with tip in the gastric body. Subtle hyperdensity within the gall bladder lumen probable excreted contrast. 5. Flatus tube is identified. Large bowel loops appear unremarkable. Nasogastric tube with tip in the distal gastric body. Small bowel loops appear unremarkable. No features of bowel obstruction. 6. Right femoral venous catheter is identified with tip in the right external iliac vein. 7. Lqsx-wj-nolvcjjr bilateral pleural effusion with adjacent lung atelectasis. Normal cardiac size. No pericardial effusion. Central venous catheter with tip in the cavoatrial junction. Electronically Signed 08/18/2024 05:22 Timothy Lowery
[2024-08-18 06:24] LABS: Basophils # (auto) 0 10 ^3/uL (0-0.2); Eosinophils # (auto) 0.2 10 ^3/uL (0-0.8); Hematocrit 15.8 % (36.0-46.0); Lymphocytes # (auto) 0.9 10 ^3/uL (0.4-5.4); Mean Corpuscular Hgb Conc. 34.4 g/dL (32.0-36.0); Monocytes # (auto) 0.3 10 ^3/uL (0-1.3); Red Blood Cells 1.87 10^6/uL (4.0-5.20)
[2024-08-18 06:26] LABS: Basophils % (auto) 0.6 % (0.0-2.0); Eosinophils % (auto) 2.8 % (0.0-7.0); Lymphocytes % (auto) 11.8 % (10.0-50.0); Mean Corpuscular Volume 84.2 fL (80.0-100.0); Monocytes % (auto) 4.4 % (0.0-12.0); Neutrophils % (auto) 80.4 % (37.0-80.0); Platelet Count (auto) 108 10^3/uL (140-450); Red Cell Distribution Width 15.2 % (11.8-14.3); White Blood Cell 7.5 10^3/uL (4.4-10.8)
[2024-08-18 06:39] LABS: Base Excess -12.2 mmol/L (-2.0-3.0)
[2024-08-18 07:11] LABS: Hemoglobin 5.4 g/dL (12.2-16.2)
[2024-08-18 08:39] LABS: Alanine Aminotransferase 10 U/L (7-40); Albumin 2.6 g/dL (3.2-4.8); Alkaline Phosphatase 42 U/L (46-116); Anion Gap 6 (5-15); Aspartate Aminotransferase 55 U/L (13-40); BUN/Creatinine Ratio 9.8 (10.0-20.0); Blood Urea Nitrogen 15 mg/dL (9-23); Carbon Dioxide 16 mmol/L (20-31); Chloride 95 mmol/L (98-107); Glucose 361 mg/dL (74-106); Potassium 4.1 mmol/L (3.5-5.1); Total Protein 4.5 g/dL (5.7-8.2)
[2024-08-18 08:47] LABS: Calcium 5.2 mg/dL (8.7-10.4); Sodium 117 mmol/L (136-145)
[2024-08-18 08:59] LABS: Base Excess -13.5 mmol/L (-2.0-3.0)
[2024-08-18] MEDS: SODIUM BICARB IV ONE (10:07)
[2024-08-18] MEDS: DEXTROSE 10% IV ONE (10:07)
--- NOTE | 2024-08-18 10:40 | DVHPN2 ---
Progress Note Date Seen: Aug 18, 2024 Has the PT tested + for MRSA If YES, has PT been informed?: No Medical Necessity Reason Pt with a Central, PICC or Fol: No Subjective Review of Systems: RESPIRATORY:Abnormal Other Systems: Patient seen and examined by myself today in follow-up, patient remained intubated on ventilator Objective vital signs Vital Sign Date Time Temp Pulse Resp B/P (MAP) Pulse Ox O2 Delivery O2 Flow Rate FiO2 08/18/24 10:20 90 24 112/55 (74) 100 35 08/18/24 06:30 97.5 207.5 08/18/24 06:00 Mechanical Ventilator+ 08/16/24 08:00 0 Total Intake and Output 08/17/24 08/17/24 08/18/24 15:00 23:00 07:00 Intake Total 4978.596 ml 2794.810 ml 2265.095 ml Output Total 650 ml 1465 ml Balance 4978.596 ml 2144.810 ml 800.095 ml medications Current Medications Medications Dose Ordered Sig/Snow Route Start Time Stop Time Status Last Admin Dose Admin Sodium Chloride 10 ml Q8HR IV 08/14/24 22:00 08/18/24 05:48 10 ML Pantoprazole Sodium 40 mg DAILY IV 08/15/24 10:00 08/18/24 10:11 40 MG Ergocalciferol 50,000 unit Q7D PO 08/15/24 10:00 08/15/24 08:53 50,000 UNIT Dextrose 50 ml UD PRN IV 08/15/24 12:45 Insulin Human (Reg)/Sodium Chloride 100 ml @ 3 mls/hr Q24H IV 08/15/24 18:15 08/17/24 17:55 3 MLS/HR Diagnostic Test (Pha) 1 strip Q1HR 08/15/24 20:30 08/18/24 10:14 1 STRIP Enoxaparin Sodium 40 mg DAILY SC 08/16/24 10:00 08/17/24 10:33 40 MG Midazolam HCl 50 ml @ 1 mls/hr Q24H IV 08/16/24 11:30 08/18/24 10:12 15 MLS/HR Fentanyl Citrate 250 ml @ 2.5 mls/hr Q24H IV 08/16/24 11:30 08/18/24 08:13 35 MLS/HR Meropenem 50 ml @ 17 mls/hr Q8H IV 08/16/24 21:00 08/18/24 05:43 17 MLS/HR Linezolid 300 ml @ 150 mls/hr Q12HR IV 08/16/24 13:00 08/18/24 10:12 150 MLS/HR Furosemide 40 mg DAILY IV 08/17/24 10:00 08/18/24 10:11 40 MG Dexmedetomidine HCl 400 mcg/ Dextrose 100 ml @ 3.695 mls/ hr Q24H IV 08/17/24 02:45 08/18/24 09:33 11.085 MLS/HR Acetaminophen 650 mg Q8HPRN PRN [place] 08/17/24 04:15 08/17/24 04:24 650 MG Calcitriol 1 mcg EOD IV 08/17/24 10:00 08/17/24 12:56 1 MCG Norepinephrine Bitartrate 250 ml @ 3.75 mls/hr Q24H IV 08/17/24 09:30 08/18/24 06:47 7.5 MLS/HR Ferric Sodium Gluconate Complex 110 ml @ 110 mls/hr DAILY@1200 IV 08/18/24 12:00 08/22/24 12:59 08/17/24 22:48 110 MLS/HR Examination: LUNGS:Normal, CVS:Normal, ABDOMEN:Abnormal, MSK:Normal laboratory and microbiology Laboratory Tests 08/18/24 08:00 08/18/24 05:57 Test 08/18/24 08:00 Range/Units Serum Glucose 361 H 74-106 mg/dL Microbiology Date/Time Source Procedure Growth Status 08/16/24 11:57 Sputum Gram Stain - Final Resulted 08/16/24 11:57 Sputum Respiratory Culture - Preliminary Resulted 08/16/24 01:00 Urine - Midstream Clean Catch Urine Culture - Preliminary Resulted 08/15/24 13:32 Nose MRSA Screen - Final Complete 08/15/24 10:33 Blood Blood Culture - Preliminary NO GROWTH AFTER 48 HOURS OF INCUBATION. Resulted Problem List/Assessment/Plan Problem List/Assessment/Plan Acute kidney injury secondary hemodynamic mediated vasomotor nephropathy, FeNa <1% Hypertriglyceridemia induced acute pancreatitis Acute hypoxic respiratory failure patient intubated on ventilator Hypocalcemia Hypophosphatemia Peritonitis Acute abdomen Ascites Hyponatremia due to hypotonic D10 IV Vitamin-D deficiency Hypomagnesemia Hyperparathyroidism Episcopal refused plasmapheresis Recommendations Kidney function remained within normal limits Increased urine output Sparrow catheter Strict I&Os Calcium gluconate IV piggyback Sodium phosphate IV piggyback Magnesium sulfate IV piggyback Add sodium bicarb 150 mEq two each L of D10 run at 100 cc/hour Continue insulin drip Furosemide 40 mg IV b.i.d. Sodium chloride 3% IV series cc per hour for 10 hours Repeat BMP every 3 hours avoid rapid correction of serum sodium Calcijex1 mcg IV q.day Surgical consult We will continue to follow up I discussed my plan of care with with Dr. Bedolla, the primary nurse and the father at bedside Plan discussed with: Other (Nurse and father) My Orders My Orders Orders - ASHISH LERMA MD Procedure Category Date Status Time Dextrose 10% W/Sodium PHA 08/18/24 In Process Bicarb 50meq/50ml 09:30 Communication Order ORDERS 08/18/24 Transmitted 09:14 Basic Metabolic Panel LAB 08/18/24 Logged 15:00 Basic Metabolic Panel LAB 08/18/24 Logged 18:00 Basic Metabolic Panel LAB 08/19/24 Verified 00:00 ASHISH LERMA MD Aug 18, 2024 10:40
[2024-08-18 12:42] LABS: Basophils # (auto) 0 10 ^3/uL (0-0.2); Hemoglobin 7.3 g/dL (12.2-16.2); Lymphocytes # (auto) 0.8 10 ^3/uL (0.4-5.4); Mean Corpuscular Volume 85.2 fL (80.0-100.0); Neutrophils # (auto) 8.6 10 ^3/uL (1.6-8.6)
[2024-08-18] MEDS: IRON SUCROSE COMPLEX 110 ML IV SCH (12:43)
[2024-08-18 12:44] LABS: Basophils % (auto) 0.4 % (0.0-2.0); Eosinophils # (auto) 0.3 10 ^3/uL (0-0.8); Eosinophils % (auto) 2.6 % (0.0-7.0); Hematocrit 20.9 % (36.0-46.0); Lymphocytes % (auto) 8.1 % (10.0-50.0); Mean Corpuscular Hemoglobin 29.7 pg (28.0-32.0); Mean Corpuscular Hgb Conc. 34.9 g/dL (32.0-36.0); Monocytes # (auto) 0.4 10 ^3/uL (0-1.3); Monocytes % (auto) 3.5 % (0.0-12.0); Neutrophils % (auto) 85.4 % (37.0-80.0); Platelet Count (auto) 96 10^3/uL (140-450); Red Blood Cells 2.46 10^6/uL (4.0-5.20); Red Cell Distribution Width 14.9 % (11.8-14.3); White Blood Cell 10.1 10^3/uL (4.4-10.8)
[2024-08-18 12:44] LABS: Base Excess -12.5 mmol/L (-2.0-3.0)
[2024-08-18 12:51] LABS: Chloride 94 mmol/L (98-107); Potassium 4.3 mmol/L (3.5-5.1)
[2024-08-18 12:52] LABS: Anion Gap 7 (5-15); Carbon Dioxide 17 mmol/L (20-31)
[2024-08-18 12:57] LABS: BUN/Creatinine Ratio 8.8 (10.0-20.0); Blood Urea Nitrogen 14 mg/dL (9-23); Glucose 330 mg/dL (74-106)
[2024-08-18 12:58] LABS: INR 1.21 (0.9-1.15); Partial Thromboplastin Time 57.8 SEC (24.5-34.5); Prothrombin Time 12.6 sec (9.3-11.8)
[2024-08-18] MEDS ORDERED: ROCURONIUM 10MG/ML 10ML VIAL IV ONE ×2 (13:02→14:15)
[2024-08-18] MEDS ORDERED: fentaNYL CITRATE 5 ML ONE (13:02)
[2024-08-18 13:20] LABS: Calcium 5.4 mg/dL (8.7-10.4); Sodium 118 mmol/L (136-145)
[2024-08-18] MEDS: ROCURONIUM BROMIDE 1,000 MG in D5W 5% 150 ML IV SCH (13:30)
--- NOTE | 2024-08-18 14:20 | DVHPN2 ---
Assessment/Plan Assessment/Plan 34-year-old female with hyperlipidemia admitted for abdominal pain. Found to have severe hypertriglyceridemia and pancreatitis. Patient also worrisome features, hypercalcemia, HAGMA, tachycardia, leukocytosis. Decision made to transfer patient ICU, intubated and mechanically ventilated, sedated. Spiking fever today, distended abdomen, POCUS done by me today, no tapable pocket. Soft blood pressure, with high PPV Physical exam Sedated, intubated on mechanical ventilation Vent synchrony PERRLA Coarse breath sounds S1-S2 regular rate and rhythm Abdomen distended, NG tube to intermittent suction with bolus fluid bladder pressure elevated No lower extremity edema Lab Elevated lipase, improving Hypocalcemia Hypophosphatemia Hyponatremia Hyperglycemia Hypertriglyceridemia, improving Low bicarb, improving Elevated anion gap, resolved, Elevated lactate Leukocytosis, resolved Imaging X-ray, right lung base atelectasis CT abdomen pelvis, [place] pancreatic fat stranding Assessment and plan Distributive shock Acute hypoxic respiratory failure Right pleural effusion Aspiration pneumonia Hypertriglyceridemia induced acute pancreatitis With worrisome features Systemic inflammatory response syndrome 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 Atelectasis likely from splinting HAGMA Lactic acidosis acute anemia, possible retroperitoneal bleeding Admit to ICU supervising chef consult appreciated nephro consult appreciated titrate off insulin drip bridge to lantus Continue with meropenem and linezolid c/w bicarb drip ns 3% 300cc then stop lasix 40 BID third spacing strict I&O keep NPO for now lovenox subQ IV protonix qd Replete phosphate, Mag IV calcium Keep corrected above 6 monitor for acute abdomen, CT abdomen done, no perforation NG tube to low intermittent suction family now agrees with transfusion surgery consult appreciated patient for decompression surgery will switch a line to radial tomorrow Lines R IJ TLC fem a line condition critical prognosis poor Total critical care time spent on this patient more than 61 minutes including evaluation, chart review, formulating plan and communication with team, excluding any procedures Plan discussed with: Other My Orders Orders - MARY FERMIN MD Procedure Category Date Status Time Ventilator Orders RT 08/18/24 Transmitted 09:15 Abg W/ Co-Ox RT 08/18/24 Logged 11:15 Communication Order ORDERS 08/18/24 Transmitted 09:17 Ventilator Orders RT 08/18/24 Transmitted 12:48 Insulin Lantus PHA 08/18/24 Transmitted (Glargine) (Lantus) 14:15 Communication Order ORDERS 08/18/24 Transmitted 14:07 Date of Service: Aug 18, 2024 Billing Provider: MARY FERMIN MD Common Visit Codes: [id number] INP/OBS CARE(HIGH), [id number] CARE 30-74 MIN MARY FERMIN MD Aug 18, 2024 14:20
[2024-08-18 14:26] LABS: Lactic Acid w/Reflex 2.3 mmol/L (0.4-2.0)
[2024-08-18] MEDS: INSULIN LANTUS (GLARGINE) 1 /0.01ml (100units/ml) SC ONE ×2 (14:28→18:12)
[2024-08-18] MEDS: SODIUM BICARB 8.4% 50Meq/50ml SYR Vial IV ONE (15:04)
--- NOTE | 2024-08-18 15:05 | DVH ---
CHEST RADIOGRAPH Indication:per op chest xray Technique: Single frontal view of the chest was obtained Comparison: XY CHEST PORTABLE on DOS: 08/17/24, XY CHEST XRAY 1 VIEW on DOS: 08/16/24, XY CHEST PORTABL E on DOS: 08/16/24 FINDINGS: Lines and Tubes: Endotracheal tube is at the level of the peg recommend withdrawal 2-3 cm. Enteric tube is below the left diaphragm in the stomach. Right internal jugular catheter in place in the sup erior vena cava. Lungs: Poor inspiratory effort with elevation of the right diaphragm and atelectasis in the right bas e and consolidation left base may represent infiltrate or atelectasis. Pleura: No effusion. No pneumothorax. Cardiomediastinal contours: Unremarkable Bones: No acute osseous abnormality. IMPRESSION: 1. Endotracheal tube is at the peg recommend withdrawal 2-3 cm. 2. Enteric tube below the left diaphragm in the stomach. 3. Right internal jugular catheter in the superior vena cava. 4. Poor inspiratory effort. HS:Y
[2024-08-18] MEDS ORDERED: ePHEDrine SULFATE 50 MG/ML AMP ONE (15:15)
[2024-08-18 16:46] LABS: Alanine Aminotransferase 20 U/L (7-40); Albumin 2.6 g/dL (3.2-4.8); Alkaline Phosphatase 48 U/L (46-116); Anion Gap 5 (5-15); Aspartate Aminotransferase 45 U/L (13-40); BUN/Creatinine Ratio 9.8 (10.0-20.0); Bilirubin, Total 2.7 mg/dL (0.2-1.0); Blood Urea Nitrogen 17 mg/dL (9-23); Carbon Dioxide 19 mmol/L (20-31); Chloride 97 mmol/L (98-107); Glucose 215 mg/dL (74-106); Potassium 4.2 mmol/L (3.5-5.1); Sodium 121 mmol/L (136-145); Total Protein 4.5 g/dL (5.7-8.2)
[2024-08-18 16:55] LABS: Calcium 5.3 mg/dL (8.7-10.4)
[2024-08-18] MEDS: SODIUM BICARB 50mEq/50ml Vial 100 ML in SOD CHL 0.45% 1,000 ML IV SCH (17:59)
[2024-08-18 18:07] LABS: Hematocrit 22.1 % (36.0-46.0); Hemoglobin 7.8 g/dL (12.2-16.2)
--- NOTE | 2024-08-18 18:17 | DVHPN2 ---
Progress Note - Dictate Date Seen: Aug 18, 2024 Has the PT tested + for MRSA If YES, has PT been informed?: No Medical Necessity Reason Pt with a Central, PICC or Fol: Yes The following are medically ne: Gutierrez Catheter Reason for gutierrez catheter: Strict I&O Subjective Patient seen and examined at bedside. Sedated, intubated on mechanical ventilator. Overnight events reviewed. vital signs Vital Sign Date Time Temp Pulse Resp B/P (MAP) Pulse Ox O2 Delivery O2 Flow Rate FiO2 08/18/24 17:44 106/46 08/18/24 16:30 98.3 104 28 100 98.3 08/18/24 16:06 35 08/18/24 14:00 Mechanical Ventilator+ 08/16/24 08:00 0 Total Intake and Output 08/17/24 08/17/24 08/18/24 14:59 22:59 06:59 Intake Total 3792.956 ml 3684.810 ml 2817.430 ml Output Total 650 ml 1465 ml Balance 3792.956 ml 3034.810 ml 1352.430 ml medications Current Medications Medications Dose Ordered Sig/Snow Route Start Time Stop Time Status Last Admin Dose Admin Sodium Chloride 10 ml Q8HR IV 08/14/24 22:00 08/18/24 15:28 10 ML Pantoprazole Sodium 40 mg DAILY IV 08/15/24 10:00 08/18/24 10:11 40 MG Ergocalciferol 50,000 unit Q7D PO 08/15/24 10:00 08/15/24 08:53 50,000 UNIT Dextrose 50 ml UD PRN IV 08/15/24 12:45 Insulin Human (Reg)/Sodium Chloride 100 ml @ 3 mls/hr Q24H IV 08/15/24 18:15 08/17/24 17:55 3 MLS/HR Diagnostic Test (Pha) 1 strip Q1HR 08/15/24 20:30 08/18/24 17:59 1 STRIP Enoxaparin Sodium 40 mg DAILY SC 08/16/24 10:00 08/17/24 10:33 40 MG Midazolam HCl 50 ml @ 1 mls/hr Q24H IV 08/16/24 11:30 08/18/24 12:38 15 MLS/HR Fentanyl Citrate 250 ml @ 2.5 mls/hr Q24H IV 08/16/24 11:30 08/18/24 13:10 35 MLS/HR Meropenem 50 ml @ 17 mls/hr Q8H IV 08/16/24 21:00 08/18/24 13:11 17 MLS/HR Linezolid 300 ml @ 150 mls/hr Q12HR IV 08/16/24 13:00 08/18/24 10:12 150 MLS/HR Furosemide 40 mg DAILY IV 08/17/24 10:00 08/18/24 10:11 40 MG Dexmedetomidine HCl 400 mcg/ Dextrose 100 ml @ 3.695 mls/ hr Q24H IV 08/17/24 02:45 08/18/24 09:33 11.085 MLS/HR Acetaminophen 650 mg Q8HPRN PRN [place] 08/17/24 04:15 08/17/24 04:24 650 MG Calcitriol 1 mcg EOD IV 08/17/24 10:00 08/17/24 12:56 1 MCG Norepinephrine Bitartrate 250 ml @ 3.75 mls/hr Q24H IV 08/17/24 09:30 08/18/24 06:47 7.5 MLS/HR Iron Sucrose 110 ml @ 110 mls/hr DAILY@1200 IV 08/18/24 12:00 08/22/24 12:59 08/18/24 12:43 110 MLS/HR Rocuronium Dawn 1000 mg/ Dextrose 250 ml @ 10.608 mls/ hr [id number] IV 08/18/24 13:30 08/18/24 13:30 10.608 MLS/HR Sodium Bicarbonate 100 ml/Sodium Chloride 1,100 ml @ 100 mls/hr Q11H IV 08/18/24 14:30 08/18/24 17:59 100 MLS/HR objective Gen.: Patient lying in bed in medical ICU. Sedated, intubated on mechanical ventilator. Head: Normocephalic, atraumatic. Eyes: PERRLA. Ears: Normal external anatomy. Throat: Endotracheal tube and orogastric tube in place. Neck: Supple, trachea midline. Chest: Transmitted breath sounds bilaterally. Decreased air entry bilaterally. No wheezing. Bibasilar crackles. Cardiovascular: Positive S1, positive S2. Regular rate and rhythm. Abdomen: Positive bowel sounds in all 4 quadrants. Soft, nontender, nondistended. : Gutierrez in place. Normal external genitalia. Rectal: Deferred. Skin: Warm, dry. Intact. Extremities: 2+ radial pulses bilaterally. No lower extremity edema. Neuro: Sedated. laboratory and microbiology Laboratory Tests 08/18/24 16:21 08/18/24 12:29 Test 08/18/24 16:21 Range/Units Serum Glucose 215 H 74-106 mg/dL Assessment/Plan Impression: Acute hypoxic respiratory failure On mechanical ventilator Hypertriglyceridemia induced acute pancreatitis Hypocalcemia Hypophosphatemia Peritonitis Acute abdomen Ascites Hyponatremia due to hypotonic IV fluid Vitamin-D deficiency Hypomagnesemia Hyperparathyroidism immune Scientologist diffuse plasmapheresis Lactic acidosis, improving Events: Remains on vent support On assist control mode with respiratory rate of 24, tidal volume 450, PEEP of 5, FiO2 of 40%. CT abdomen-pelvis demonstrated moderate bilateral pleural effusions w/ compressive atelectasis. Limited chest ultrasound showed no pleural fluid amenable for thoracentesis noted. Limited abdominal ultrasound showed no adequate ascitic fluid pocket to drain. ABG reviewed, notable for acidemia d/t metabolic acidosis Metabolic acidosis Sodium 117, on IV fluids w/ sodium chloride. Pt received 2 units of PRBC Continue to monitor hemoglobin Continue antibiotics Diurese w/ Lasix as tolerated Monitor renal function Labs and imaging reviewed. Rest of plan as noted below. Plan: s/p intubation on mechanical ventilator CXR image and report reviewed. Devices in place. Multifocal airspace opacities. ABG reviewed. Acidemia due to metabolic acidosis. Currently on assist control with respiratory rate of 24, tidal volume 450, PEEP of 5, FiO2 of 40%. Titrate FIO2 to keep O2 saturation above 92%. VAP bundle Daily ABG and CXR while intubated. Sedate for ventilatory synchrony: On fentanyl and Versed drips. Start pressors for hemodynamic support if necessary. Keep MAP above 65 mmHg/SBP above 90 mmHg. Continue broad spectrum antibiotics. F/u cultures. Monitor renal function due to Acute kidney injury. Monitor electrolytes. Supplement as necessary. Received calcium gluconate Potassium, calcium and magnesium were supplemented. Continue IV fluids Accu-cheks, on insulin drip. Abdomen was severely distended. Limited ultrasound of the abdomen revealed no pocket amenable for paracentesis. Recommended for RN to check bladder pressure every 6 hours. Currently it was 16 mmHg. Surgery recommendations appreciated - we will consider emergent surgery if abdominal pressures exceeding 25 mmHg. GI/DVT prophylaxis. Condition: Critical Prognosis: Poor given multiple comorbidities. Rest of plan per hospitalist and other consultants. A total of 35 minutes of critical care time was spent reviewing the patient record, examining the patient, making a diagnostic and therapeutic plan, discussing this plan with the medical personnel, following up on diagnostic studies and following the patient for clinical stability excluding any and all procedures. At least 50% of this time was spent in direct, gxgf-zo-nial contact. Thank you Dr. Bedolla for allowing me to participate in this patient's care. Further recommendations will depend on patient's clinical course. Please do not hesitate to contact me if you have any questions or concerns. This medical document was created using an electronic medical record system with [employer] dictation system. Although this document has been carefully reviewed, there may still be some phonetic and typographical errors. These areas are purely typographical due to imperfections of the software programs, and do not reflect any compromise in the patient's medical care. Plan discussed with: Other (ANDRES Tristan) Critical Care Time(min): 35 JUDE REN MD Aug 18, 2024 18:17
[2024-08-18 23:01] LABS: Alanine Aminotransferase 11 U/L (7-40); Albumin 2.5 g/dL (3.2-4.8); Alkaline Phosphatase 50 U/L (46-116); Anion Gap 6 (5-15); Aspartate Aminotransferase 39 U/L (13-40); BUN/Creatinine Ratio 9.2 (10.0-20.0); Blood Urea Nitrogen 18 mg/dL (9-23); Carbon Dioxide 19 mmol/L (20-31); Chloride 96 mmol/L (98-107); Glucose 178 mg/dL (74-106); Potassium 4.8 mmol/L (3.5-5.1); Sodium 121 mmol/L (136-145)
[2024-08-18 23:02] LABS: Bilirubin, Total 2.8 mg/dL (0.2-1.0); Total Protein 4.4 g/dL (5.7-8.2)
[2024-08-18 23:09] LABS: Calcium 5.2 mg/dL (8.7-10.4); Lactic Acid w/Reflex 2.3 mmol/L (0.4-2.0)
[2024-08-19] VITALS (109 sets, daily range): BP systolic 91–164; BP diastolic 27–99; PULSE 78–117; RESP 17–31; TEMP 97.9–101.8; O2SAT 94–100
[2024-08-19] MEDS: CALCIUM GLUC 1,000mg/50ml-NS 50 ML IV SCH (00:28)
[2024-08-19 00:38] LABS: Chloride 97 mmol/L (98-107); Potassium 4.8 mmol/L (3.5-5.1); Sodium 121 mmol/L (136-145)
[2024-08-19 00:39] LABS: Anion Gap 6 (5-15); Carbon Dioxide 18 mmol/L (20-31)
[2024-08-19 00:44] LABS: Glucose 171 mg/dL (74-106)
[2024-08-19 00:45] LABS: BUN/Creatinine Ratio 9.5 (10.0-20.0); Blood Urea Nitrogen 18 mg/dL (9-23)
[2024-08-19 00:51] LABS: Calcium 5.4 mg/dL (8.7-10.4)
--- NOTE | 2024-08-19 01:42 | DVHOP ---
DATE OF SURGERY: 08/18/2024 PREOPERATIVE INDICATIONS: The patient continues with increasing abdominal pressure, exceeding 30 mmHg pressure. The patient's creatinine was elevated and the patient was beginning to show signs of compartment syndrome for which reason the patient after transfusion and partial correction of her coagulopathy, was taken to the operating room for decompressive laparotomy. SURGEON: Sebastián Darby MD ADOPTION SERVICES MANAGER: Patrick Almeida NP ANESTHESIA: General endotracheal. ANESTHESIOLOGIST: José Colbert DO DESCRIPTION OF PROCEDURE: Under general anesthesia with the patient's skin prepped and draped, the midline incision was made and the subcutaneous fat and fascia were divided and allowed to retract laterally approximately 1.5 liters of bloody appearing peritoneal fluid was evacuated and the abdomen was manually explored. There was evidence of beginning necrosis of omental fat as well as of the peritoneal lining. The bowel loops were inspected and found to be viable. There was no evidence of liver ischemia grossly on the outside of the liver parenchyma. Subsequently, to this, the omentum was placed over the bowel and interposed between the abdominal wall which was allowed to remain unsutured. A vacuum dressing was applied after the peritoneal contents were covered with wet sterile towels. The plan is to return the patient to the operating room in approximately 48 hours for reinspection and placement of a temporary fascial closure sutures. The patient remained in unchanged clinical condition at the termination of procedure. Blood pressure remained in the neighborhood of 130/70, pulse rate of approximately 65 to 70. She continued to make urine throughout the procedure and was returned to the ICU on the ventilator with all orders to be continued. I called the patient's mother and explained everything in detail to the [place] Italian. Sebastián Darby MD PF TID: [id number] RECEIPT: [id number]
[2024-08-19 03:23] LABS: Basophils # (auto) 0.1 10 ^3/uL (0-0.2); Basophils % (auto) 0.7 % (0.0-2.0); Eosinophils # (auto) 0.1 10 ^3/uL (0-0.8); Eosinophils % (auto) 0.7 % (0.0-7.0); Hematocrit 21.5 % (36.0-46.0); Hemoglobin 7.5 g/dL (12.2-16.2); Lymphocytes # (auto) 0.5 10 ^3/uL (0.4-5.4); Lymphocytes % (auto) 5.6 % (10.0-50.0); Mean Corpuscular Hemoglobin 29.3 pg (28.0-32.0); Mean Corpuscular Hgb Conc. 35.2 g/dL (32.0-36.0); Mean Corpuscular Volume 83.2 fL (80.0-100.0); Monocytes # (auto) 0.3 10 ^3/uL (0-1.3); Monocytes % (auto) 3.6 % (0.0-12.0); Neutrophils # (auto) 7.8 10 ^3/uL (1.6-8.6); Neutrophils % (auto) 89.4 % (37.0-80.0); Platelet Count (auto) 95 10^3/uL (140-450); Red Blood Cells 2.58 10^6/uL (4.0-5.20); Red Cell Distribution Width 14.7 % (11.8-14.3); White Blood Cell 8.7 10^3/uL (4.4-10.8)
[2024-08-19 03:49] LABS: Alanine Aminotransferase 10 U/L (7-40); Alkaline Phosphatase 53 U/L (46-116); Anion Gap 5 (5-15); BUN/Creatinine Ratio 9.1 (10.0-20.0); Blood Urea Nitrogen 18 mg/dL (9-23); Carbon Dioxide 18 mmol/L (20-31); Chloride 99 mmol/L (98-107); Glucose 148 mg/dL (74-106); Potassium 4.5 mmol/L (3.5-5.1); Sodium 122 mmol/L (136-145)
[2024-08-19 03:50] LABS: Albumin 2.6 g/dL (3.2-4.8)
[2024-08-19 03:51] LABS: Aspartate Aminotransferase 33 U/L (13-40); Bilirubin, Total 2.3 mg/dL (0.2-1.0); Total Protein 4.4 g/dL (5.7-8.2)
[2024-08-19 04:11] LABS: Calcium 5.8 mg/dL (8.7-10.4)
--- NOTE | 2024-08-19 05:02 | DVH ---
CHEST RADIOGRAPH Indication:resp failure Technique: Single frontal view of the chest was obtained COMPARISON: XY CHEST XRAY 1 VIEW on DOS: 08/18/24, XY CHEST PORTABLE on DOS: 08/17/24, XY CHEST XRAY 1 VIEW on DOS: 08/16/24, XY CHEST PORTABLE on DOS: 08/17/24 FINDINGS: Lines and Tubes: Endotracheal tube and enteric catheter in satisfactory position. Right central venou s catheter in satisfactory position. Lungs: Multifocal airspace disease. Pleura: No effusion. No pneumothorax. Cardiomediastinal contours: Unremarkable Bones: Unremarkable IMPRESSION: Lines and tubes in satisfactory position. Unchanged multifocal airspace disease.
[2024-08-19] MEDS: DEXTROSE (50%) 50ML SYRG IV ONE (06:48)
[2024-08-19 06:52] LABS: Base Excess -5.8 mmol/L (-2.0-3.0)
--- NOTE | 2024-08-19 08:40 | DVH ---
ULTRASOUND ABDOMEN limited, 4 QUADRANTS INDICATION: Evaluate for ascites. TECHNIQUE: The four quadrants of the abdomen were scanned in loving-scale to assess for the presence of ascites. N o solid organ assessment was performed. FINDINGS/IMPRESSIONS: No ascites is noted
[2024-08-19] MEDS: D5W/SOD CHLO 0.9% 1,000 ML IV SCH (09:32)
--- NOTE | 2024-08-19 12:05 | DVHPN2 ---
Progress Note Date Seen: Aug 19, 2024 Resident Creating Document: KENNEDY LIJIMNAI RESIDENT Has the PT tested + for MRSA If YES, has PT been informed?: No Medical Necessity Reason Pt with a Central, PICC or Fol: Yes The following are medically ne: Gutierrez Catheter Reason for gutierrez catheter: Strict I&O Subjective Review of Systems Patient is a 34-year-old female with a past medical history of hyperlipidemia presented to the ED with a chief complaint of severe epigastric pain rated 10/10 radiating to the back which began on the morning of the day of admission. Patient reported watery diarrhea since 1 day prior to admission and started developing crampy abdominal pain which spread throughout her abdomen associated with nausea vomiting and chills. Patient denied fever chest pain shortness of breath fatigue weakness. Patient reports occasional alcohol drinking but denies smoking and drug use. On admission patient had elevated WBC count 14.4, sodium 133, serum carbon dioxide less than 10, anion gap 23, creatinine 0.77, GFR 105, lipase 980--> 1517, triglycerides 2900, lactic acid 2.2. Abdominal CT shows diffuse peripancreatic fat stranding without gross evidence of discrete pancreatic lesion or fluid collection, Hepatic steatosis, scattered colonic diverticula were seen. Past Medical History :Hyperlipidemia Past Surgical History :None reported Social History: Patient lives with a roommate. Occasional alcohol uses denies smoking and drug use Review of systems Patient seen and examined at the bedside. Patient is in the ICU on mechanical ventilation FiO2 35%, peep 5 cm water, tidal volume 450 mL. Objective vital signs Vital Sign Date Time Temp Pulse Resp B/P (MAP) Pulse Ox O2 Delivery O2 Flow Rate FiO2 08/19/24 10:53 101.1 08/19/24 10:53 110/55 08/19/24 10:00 102 28 100 35 08/19/24 06:00 Mechanical Ventilator+ Total Intake and Output 08/18/24 08/18/24 08/19/24 15:00 23:00 07:00 Intake Total 2367.485 ml 1552.05 ml 1643.561 ml Output Total 700 ml 2705 ml Balance 1667.485 ml 1552.05 ml -1061.439 ml medications Current Medications Medications Dose Ordered Sig/Snow Route Start Time Stop Time Status Last Admin Dose Admin Sodium Chloride 10 ml Q8HR IV 08/14/24 22:00 08/19/24 06:07 10 ML Pantoprazole Sodium 40 mg DAILY IV 08/15/24 10:00 08/19/24 08:54 40 MG Ergocalciferol 50,000 unit Q7D PO 08/15/24 10:00 08/15/24 08:53 50,000 UNIT Dextrose 50 ml UD PRN IV 08/15/24 12:45 Insulin Human (Reg)/Sodium Chloride 100 ml @ 3 mls/hr Q24H IV 08/15/24 18:15 08/19/24 09:24 3 MLS/HR Diagnostic Test (Pha) 1 strip Q1HR 08/15/24 20:30 08/19/24 09:31 1 STRIP Midazolam HCl 50 ml @ 1 mls/hr Q24H IV 08/16/24 11:30 08/19/24 08:09 15 MLS/HR Fentanyl Citrate 250 ml @ 2.5 mls/hr Q24H IV 08/16/24 11:30 08/19/24 10:53 37.5 MLS/HR Linezolid 300 ml @ 150 mls/hr Q12HR IV 08/16/24 13:00 08/19/24 08:54 150 MLS/HR Dexmedetomidine HCl 400 mcg/ Dextrose 100 ml @ 3.695 mls/ hr Q24H IV 08/17/24 02:45 08/19/24 08:22 9.238 MLS/HR Acetaminophen 650 mg Q8HPRN PRN [place] 08/17/24 04:15 08/19/24 10:53 650 MG Calcitriol 1 mcg EOD IV 08/17/24 10:00 08/19/24 10:54 1 MCG Norepinephrine Bitartrate 250 ml @ 3.75 mls/hr Q24H IV 08/17/24 09:30 08/18/24 06:47 7.5 MLS/HR Iron Sucrose 110 ml @ 110 mls/hr DAILY@1200 IV 08/18/24 12:00 08/22/24 12:59 08/18/24 12:43 110 MLS/HR Rocuronium [place] 1000 mg/ Dextrose 250 ml @ 10.608 mls/ hr [id number] IV 08/18/24 13:30 08/18/24 13:30 10.608 MLS/HR Furosemide 40 mg BIDD IV 08/19/24 18:00 Dextrose/Sodium Chloride 1,000 ml @ 100 mls/hr Q10H IV 08/19/24 09:00 08/19/24 09:32 100 MLS/HR Fentanyl Citrate 250 ml @ 2.5 mls/hr Q24H IV 08/19/24 10:45 UNV Meropenem 50 ml @ 17 mls/hr Q12H IV 08/19/24 17:00 Examination Gen - no pallor, no icterus, no cyanosis, no clubbing, no LAD, no edema . Skin - Patients skin is warm and dry. HEENT - normocephalic, atraumatic, dry mucous membranes. Neck - no LAD, no JVD. Pulmonary - B/L vesicular breath sounds with patient on ventilator cardiovascular - tachycardic, regular S1,S2 heard. peripheral pulses normal radial 2+, pedal 2+. GI - s/p exploratory laparotomy Neurological - Patient is sedated with midazolam, fentanyl and dexmedetomidine. laboratory and microbiology Laboratory Tests 08/19/24 03:05 Test 08/19/24 03:05 Range/Units Serum Glucose 148 H 74-106 mg/dL Microbiology Date/Time Source Procedure Growth Status 08/16/24 11:57 Sputum Gram Stain - Final Resulted 08/16/24 11:57 Sputum Respiratory Culture - Preliminary Resulted 08/16/24 01:00 Urine - Midstream Clean Catch Urine Culture - Final Complete 08/15/24 13:32 Nose MRSA Screen - Final Complete 08/15/24 10:33 Blood Blood Culture - Preliminary NO GROWTH AFTER 72 HOURS OF INCUBATION. Resulted Problem List/Assessment/Plan Problem List/Assessment/Plan Assessment and plan # Acute kidney injury secondary hemodynamic mediated vasomotor nephropathy - serum creatinine 1.98, BUN 18 - GFR decreasing now at 34 - FeNa <1% - urine output over the last 24 hour 3400 mL - continue IV fluids with D5 NS - continue furosemide 40 mg b.i.d. IV # Hypertriglyceridemia induced acute pancreatitis - patient's serum triglycerides initially decreased to with IV insulin drip from 2900 on 08/14/2024-->637 on 08/17/2024 mg/dL - triglyceride levels started increasing thereafter and today on 08/19/24 increased to 980 mg/dL - patient on insulin drip 3 units/hour - goals of care discussed with the primary team Dr. Bang. If the triglyceride levels are not controlled with insulin drip plasma pheresis will be considered after discussion with the family. - monitor electrolytes potassium and magnesium given patient is on insulin drip # Acute hypoxic respiratory failure patient intubated on ventilator # Hypocalcemia - 08/19/24 corrected serum calcium for albumin 6.9 mg/dL - continue on 1 mcg calcitriol IV eod - patient given IV 2 g calcium gluconate in the morning on 08/19 # hyponatremia - serum osmolality pending - continue IV fluids with D5 NS # Hypophosphatemia, resolved - 08/19 serum phosphorus 3.6 - continue on 1 mcg calcitriol IV eod # hypomagnesemia, resolved # Vitamin-D deficiency # Hyperparathyroidism Peritonitis Acute abdomen Ascites Yarsanism refused plasmapheresis Goals of care discussed with the family for over 20 minutes full code. Plan discussed with Dr. Sutherland Plan discussed with: Other (Father, ) My Orders My Orders Orders - PENELOPE LI Procedure Category Date Status Time Phosphorus LAB 08/19/24 In Process 09:56 PENELOPE LI Aug 19, 2024 12:05
[2024-08-19 12:34] LABS: Hematocrit 19.4 % (36.0-46.0); Platelet Count (auto) 95 10^3/uL (140-450); Red Blood Cells 2.34 10^6/uL (4.0-5.20)
[2024-08-19 12:36] LABS: Mean Corpuscular Hemoglobin 28.6 pg (28.0-32.0); Mean Corpuscular Hgb Conc. 34.5 g/dL (32.0-36.0); Red Cell Distribution Width 15.1 % (11.8-14.3); White Blood Cell 8.1 10^3/uL (4.4-10.8)
[2024-08-19 12:41] LABS: Hemoglobin 6.7 g/dL (12.2-16.2)
[2024-08-19 12:42] LABS: Basophils % (manual) 0 (0.0-2.0); Blast Cells 0; Metamyelocytes % 0; Myelocytes % 0; Promyelocytes % 0; Reactive Lymphocytes 0
[2024-08-19 12:44] LABS: Alanine Aminotransferase 10 U/L (7-40); Albumin 2.4 g/dL (3.2-4.8); Alkaline Phosphatase 53 U/L (46-116); Anion Gap 7 (5-15); Aspartate Aminotransferase 34 U/L (13-40); BUN/Creatinine Ratio 8.5 (10.0-20.0); Blood Urea Nitrogen 19 mg/dL (9-23); Carbon Dioxide 21 mmol/L (20-31); Chloride 99 mmol/L (98-107); Glucose 162 mg/dL (74-106); Magnesium 1.9 mg/dL (1.6-2.6); Potassium 3.7 mmol/L (3.5-5.1)
[2024-08-19 12:45] LABS: Bilirubin, Total 1.8 mg/dL (0.2-1.0); Phosphorus 3.3 mg/dL (2.4-5.1); Total Protein 4.3 g/dL (5.7-8.2)
[2024-08-19 12:46] LABS: Sodium 127 mmol/L (136-145)
[2024-08-19 12:47] LABS: Calcium 5.7 mg/dL (8.7-10.4)
[2024-08-19 13:04] LABS: Band Neutrophils % (manual) 45; Eosinophils % (manual) 2 (0-7); Lymphocytes % (manual) 10 (10.0-50.0); Monocytes % (manual) 2 (0-12)
[2024-08-19 13:05] LABS: Platelet Estimate Decreased
--- NOTE | 2024-08-19 14:03 | DVHPN2 ---
Progress Note Date Seen: Aug 19, 2024 Has the PT tested + for MRSA If YES, has PT been informed?: No Medical Necessity Reason Pt with a Central, PICC or Fol: Yes The following are medically ne: Gutierrez Catheter Reason for gutierrez catheter: Strict I&O Objective vital signs Vital Sign Date Time Temp Pulse Resp B/P (MAP) Pulse Ox O2 Delivery O2 Flow Rate FiO2 08/19/24 12:13 102 28 108/56 (73) 100 35 08/19/24 12:00 101.1 214.0 08/19/24 06:00 Mechanical Ventilator+ Total Intake and Output 08/18/24 08/18/24 08/19/24 15:00 23:00 07:00 Intake Total 2367.485 ml 1552.05 ml 1643.561 ml Output Total 700 ml 2705 ml Balance 1667.485 ml 1552.05 ml -1061.439 ml medications Current Medications Medications Dose Ordered Sig/Snow Route Start Time Stop Time Status Last Admin Dose Admin Sodium Chloride 10 ml Q8HR IV 08/14/24 22:00 08/19/24 06:07 10 ML Pantoprazole Sodium 40 mg DAILY IV 08/15/24 10:00 08/19/24 08:54 40 MG Ergocalciferol 50,000 unit Q7D PO 08/15/24 10:00 08/15/24 08:53 50,000 UNIT Dextrose 50 ml UD PRN IV 08/15/24 12:45 Insulin Human (Reg)/Sodium Chloride 100 ml @ 3 mls/hr Q24H IV 08/15/24 18:15 08/19/24 09:24 3 MLS/HR Diagnostic Test (Pha) 1 strip Q1HR 08/15/24 20:30 08/19/24 12:26 1 STRIP Midazolam HCl 50 ml @ 1 mls/hr Q24H IV 08/16/24 11:30 08/19/24 11:28 1 MLS/HR Fentanyl Citrate 250 ml @ 2.5 mls/hr Q24H IV 08/16/24 11:30 08/19/24 10:53 37.5 MLS/HR Linezolid 300 ml @ 150 mls/hr Q12HR IV 08/16/24 13:00 08/19/24 08:54 150 MLS/HR Dexmedetomidine HCl 400 mcg/ Dextrose 100 ml @ 3.695 mls/ hr Q24H IV 08/17/24 02:45 08/19/24 08:22 9.238 MLS/HR Acetaminophen 650 mg Q8HPRN PRN [place] 08/17/24 04:15 08/19/24 10:53 650 MG Calcitriol 1 mcg EOD IV 08/17/24 10:00 08/19/24 10:54 1 MCG Norepinephrine Bitartrate 250 ml @ 3.75 mls/hr Q24H IV 08/17/24 09:30 08/19/24 11:29 7.5 MLS/HR Iron Sucrose 110 ml @ 110 mls/hr DAILY@1200 IV 08/18/24 12:00 08/22/24 12:59 08/18/24 12:43 110 MLS/HR Rocuronium [place] 1000 mg/ Dextrose 250 ml @ 10.608 mls/ hr [id number] IV 08/18/24 13:30 08/18/24 13:30 10.608 MLS/HR Furosemide 40 mg BIDD IV 08/19/24 18:00 Dextrose/Sodium Chloride 1,000 ml @ 100 mls/hr Q10H IV 08/19/24 09:00 08/19/24 09:32 100 MLS/HR Fentanyl Citrate 250 ml @ 2.5 mls/hr Q24H IV 08/19/24 10:45 Meropenem 50 ml @ 17 mls/hr Q12H IV 08/19/24 17:00 Potassium Chloride 100 ml @ 50 mls/hr Q2H IV 08/19/24 13:45 08/19/24 19:44 UNV laboratory and microbiology Laboratory Tests 08/19/24 12:10 Test 08/19/24 12:10 Range/Units Serum Glucose 162 H 74-106 mg/dL Problem List/Assessment/Plan Problem List/Assessment/Plan 08/19/24 ABDOMINAL PRESXURE IMPROVED, DRESSING DRY, SEROUS DRAINAGE, WILL TAKE TO [facility] MONDAY TO LAVAGE AND RE DRESS, POSSIBLY PLACE FASCIAL SUTURES Plan discussed with: MARILYN Ge MD Aug 19, 2024 14:03
[2024-08-19] MEDS ORDERED: TPN PER PHARMACY 0 ML IV SCH (14:45)
[2024-08-19] MEDS: POTASSIUM CHL 20MEQ/100ML 100 ML IV SCH (14:53)
[2024-08-19] MEDS: MAGNESIUM SULFATE 1GM/100ML 100 ML IV ONE (14:53)
[2024-08-19] MEDS: CALCIUM GLUC 1,000mg/50ml-NS 50 ML IV ONE (16:50)
[2024-08-19] MEDS: fentaNYL Drip 2500mCg/250mlNS 250 ML IV SCH (17:04)
[2024-08-19] MEDS: LIDOCAINE 1% (LOCAL ANESTH.) PF 5ml SDV ID ONE (18:18)
[2024-08-19] MEDS: MEROPENEM 1GM IVPB 50 ML IV SCH (19:53)
[2024-08-19 20:29] LABS: Alanine Aminotransferase 10 U/L (7-40); Albumin 2.5 g/dL (3.2-4.8); Alkaline Phosphatase 58 U/L (46-116); Anion Gap 6 (5-15); Aspartate Aminotransferase 33 U/L (13-40); BUN/Creatinine Ratio 9.2 (10.0-20.0); Bilirubin, Total 2.5 mg/dL (0.2-1.0); Blood Urea Nitrogen 21 mg/dL (9-23); Calcium 6.1 mg/dL (8.7-10.4); Carbon Dioxide 21 mmol/L (20-31); Chloride 104 mmol/L (98-107); Glucose 123 mg/dL (74-106); Magnesium 2.1 mg/dL (1.6-2.6); Phosphorus 2.9 mg/dL (2.4-5.1); Sodium 131 mmol/L (136-145); Total Protein 4.5 g/dL (5.7-8.2)
[2024-08-19] MEDS: FUROSEMIDE 40 MG/4 ML VIAL IV SCH (21:00)
[2024-08-19 21:34] LABS: Red Cell Distribution Width 15.2 % (11.8-14.3)
[2024-08-19 21:35] LABS: Hematocrit 22.5 % (36.0-46.0); Mean Corpuscular Hemoglobin 29.5 pg (28.0-32.0); Mean Corpuscular Hgb Conc. 35.4 g/dL (32.0-36.0); Mean Corpuscular Volume 83.4 fL (80.0-100.0); Platelet Count (auto) 96 10^3/uL (140-450)
[2024-08-19 21:38] LABS: Basophils % (manual) 0 (0.0-2.0); Blast Cells 0; Eosinophils % (manual) 0 (0-7); Metamyelocytes % 0; Myelocytes % 0; Promyelocytes % 0; Reactive Lymphocytes 0
[2024-08-19] MEDS: AMINO ACID INFUSION IN D5W 1,000 ML IV SCH (21:59)
[2024-08-19 22:31] LABS: Band Neutrophils % (manual) 6; Lymphocytes % (manual) 11 (10.0-50.0); Monocytes % (manual) 5 (0-12); Platelet Estimate Decreased
[2024-08-19] MEDS: SODIUM CHLOR 0.9% PF (SALINE LOCK) 10ML VIAL/SYR IV SCH (23:32)
[2024-08-20] VITALS (103 sets, daily range): BP systolic 92–166; BP diastolic 35–92; PULSE 65–116; RESP 15–30; TEMP 95.2–101.7; O2SAT 97–100
[2024-08-20] MEDS: DEXTROSE 10% 1,000 ML IV ONE (01:30)
[2024-08-20] MEDS: DEXTROSE 10% 1,000 ML IV SCH ×4 (01:33→21:30)
--- NOTE | 2024-08-20 03:56 | DVH ---
CHEST RADIOGRAPH Indication:on vent Technique: Single frontal view of the chest was obtained Comparison: XY CHEST PORTABLE on DOS: 08/19/24, XY CHEST XRAY 1 VIEW on DOS: 08/18/24, XY CHEST NASRA BLE on DOS: 08/17/24, XY CHEST XRAY 1 VIEW on DOS: 08/16/24, XY CHEST PORTABLE on DOS: 08/16/24, XY CHES T PORTABLE on DOS: 08/19/24 FINDINGS: Lines and Tubes: Endotracheal tube and enteric catheter in satisfactory position. Right central venou s catheter in satisfactory position. Lungs: Multifocal airspace disease. Pleura: No effusion. No pneumothorax. Cardiomediastinal contours: Unremarkable Bones: Unremarkable IMPRESSION: Lines and tubes in satisfactory position. Unchanged multifocal airspace disease.
[2024-08-20 03:59] LABS: Hemoglobin 8.2 g/dL (12.2-16.2); Platelet Count (auto) 98 10^3/uL (140-450)
[2024-08-20 04:01] LABS: Hematocrit 23.5 % (36.0-46.0); Mean Corpuscular Hemoglobin 29.1 pg (28.0-32.0); Mean Corpuscular Hgb Conc. 34.8 g/dL (32.0-36.0); Mean Corpuscular Volume 83.6 fL (80.0-100.0); Red Blood Cells 2.82 10^6/uL (4.0-5.20); White Blood Cell 13.3 10^3/uL (4.4-10.8)
[2024-08-20 04:05] LABS: Basophils % (manual) 0 (0.0-2.0); Blast Cells 0; Metamyelocytes % 0; Promyelocytes % 0; Reactive Lymphocytes 0
[2024-08-20 04:19] LABS: Alanine Aminotransferase 10 U/L (7-40); Alkaline Phosphatase 63 U/L (46-116); Anion Gap 7 (5-15); BUN/Creatinine Ratio 9.5 (10.0-20.0); Blood Urea Nitrogen 21 mg/dL (9-23); Calcium 6.8 mg/dL (8.7-10.4); Carbon Dioxide 22 mmol/L (20-31); Chloride 103 mmol/L (98-107); Glucose 155 mg/dL (74-106); Magnesium 2.1 mg/dL (1.6-2.6); Potassium 3.6 mmol/L (3.5-5.1); Sodium 132 mmol/L (136-145)
[2024-08-20] MEDS: DexmedeTOMIDine 4 ML IV ONE (04:19)
[2024-08-20 04:20] LABS: Albumin 2.6 g/dL (3.2-4.8)
[2024-08-20 04:21] LABS: Aspartate Aminotransferase 32 U/L (13-40); Bilirubin, Total 2.1 mg/dL (0.2-1.0); Phosphorus 3.1 mg/dL (2.4-5.1); Total Protein 4.8 g/dL (5.7-8.2)
[2024-08-20 05:47] LABS: Band Neutrophils % (manual) 5; Eosinophils % (manual) 2 (0-7); Lymphocytes % (manual) 4 (10.0-50.0); Monocytes % (manual) 6 (0-12); Myelocytes % 1
[2024-08-20 05:48] LABS: Platelet Estimate Decreased
[2024-08-20 06:50] LABS: Base Excess -4.9 mmol/L (-2.0-3.0)
--- NOTE | 2024-08-20 11:39 | DVHPN2 ---
Progress Note - Dictate Date Seen: Aug 20, 2024 Has the PT tested + for MRSA If YES, has PT been informed?: No Medical Necessity Reason Pt with a Central, PICC or Fol: Yes The following are medically ne: Central Line, Gutierrez Catheter Reason for gutierrez catheter: Strict I&O Subjective Remains intubated in ICU Triglyceride level noted slightly improved Remains on insulin drip Family at bedside vital signs Vital Sign Date Time Temp Pulse Resp B/P (MAP) Pulse Ox O2 Delivery O2 Flow Rate FiO2 08/20/24 11:15 99.0 88 24 102/37 (58) 100 210.2 103/52 (69) 08/20/24 10:10 30 08/20/24 08:00 Mechanical Ventilator+ Total Intake and Output 08/19/24 08/19/24 08/20/24 15:00 23:00 07:00 Intake Total 1177.308 ml 2612.430 ml 1000.010 ml Output Total 4250 ml 4115 ml Balance 1177.308 ml -1637.570 ml -3114.990 ml medications Current Medications Medications Dose Ordered Sig/Snow Route Start Time Stop Time Status Last Admin Dose Admin Sodium Chloride 10 ml Q8HR IV 08/14/24 22:00 08/20/24 06:20 10 ML Pantoprazole Sodium 40 mg DAILY IV 08/15/24 10:00 08/20/24 10:00 40 MG Ergocalciferol 50,000 unit Q7D PO 08/15/24 10:00 08/15/24 08:53 50,000 UNIT Dextrose 50 ml UD PRN IV 08/15/24 12:45 Insulin Human (Reg)/Sodium Chloride 100 ml @ 3 mls/hr Q24H IV 08/15/24 18:15 08/20/24 10:13 3 MLS/HR Diagnostic Test (Pha) 1 strip Q1HR 08/15/24 20:30 08/20/24 10:01 1 STRIP Midazolam HCl 50 ml @ 1 mls/hr Q24H IV 08/16/24 11:30 08/20/24 08:13 15 MLS/HR Linezolid 300 ml @ 150 mls/hr Q12HR IV 08/16/24 13:00 08/20/24 10:01 150 MLS/HR Dexmedetomidine HCl 400 mcg/ Dextrose 100 ml @ 3.695 mls/ hr Q24H IV 08/17/24 02:45 08/20/24 04:09 11.085 MLS/HR Acetaminophen 650 mg Q8HPRN PRN [place] 08/17/24 04:15 08/19/24 23:31 650 MG Calcitriol 1 mcg EOD IV 08/17/24 10:00 08/19/24 10:54 1 MCG Norepinephrine Bitartrate 250 ml @ 3.75 mls/hr Q24H IV 08/17/24 09:30 08/19/24 11:29 7.5 MLS/HR Iron Sucrose 110 ml @ 110 mls/hr DAILY@1200 IV 08/18/24 12:00 08/22/24 12:59 08/19/24 16:49 110 MLS/HR Rocuronium [place] 1000 mg/ Dextrose 250 ml @ 10.608 mls/ hr [id number] IV 08/18/24 13:30 08/18/24 13:30 10.608 MLS/HR Furosemide 40 mg BIDD IV 08/19/24 18:00 08/20/24 06:19 40 MG Fentanyl Citrate 250 ml @ 2.5 mls/hr Q24H IV 08/19/24 10:45 08/20/24 00:37 40 MLS/HR Meropenem 50 ml @ 17 mls/hr Q12H IV 08/19/24 17:00 08/20/24 04:25 17 MLS/HR Amino Acids 0 ml @ 0 mls/hr PER PHARMACY IV 08/19/24 14:45 Amino Acids 1,000 ml @ 41 mls/hr [id number] IV 08/19/24 22:00 08/20/24 21:59 08/19/24 21:59 41 MLS/HR Sodium Chloride 10 ml QSHIFT@10,22 IV 08/19/24 22:00 08/20/24 10:01 10 ML Dextrose 1,000 ml @ 100 mls/hr Q10H IV 08/20/24 09:45 Sodium Acetate 20 meq/Potassium Acetate 40 meq/ Potassium Phosphate 11 meq/ Calcium Gluconate 6.9 meq/Magnesium Sulfate 8 meq/ Multivitamins 10 ml/Amino Acids/ Dextrose 759.3387 ml @ 31 mls/hr [id number] IV 08/20/24 22:00 08/21/24 21:59 objective Young female Appears critically ill Intubated Sedated On pressors Diffuse anasarca Distended abdomen with dressing Gutierrez catheter Regular rate and rhythm No murmur laboratory and microbiology Laboratory Tests 08/20/24 03:30 Test 08/20/24 03:30 Range/Units Serum Glucose 155 H 74-106 mg/dL Assessment/Plan Acute kidney injury hemodynamic Shock due to pancreatitis Severe triglyceridemia > 2000 on admission Abdominal compartment syndrome s/p decompression 08/18/24 Hyponatremia Hypocalcemia Hypophosphatemia Acute respiratory failure Agree with current management insulin drip Electrolyte replacement P.r.n. diuretic Patient going to surgery for repeat abdominal procedure Critically ill with guarded prognosis Critical care time spent 35 minutes Plan discussed with: Other STONE SPARKS MD Aug 20, 2024 11:39
[2024-08-20 12:33] LABS: Hematocrit 21.4 % (36.0-46.0); Hemoglobin 7.5 g/dL (12.2-16.2); Mean Corpuscular Hemoglobin 29.3 pg (28.0-32.0); Mean Corpuscular Hgb Conc. 35.2 g/dL (32.0-36.0); Mean Corpuscular Volume 83.2 fL (80.0-100.0); Platelet Count (auto) 83 10^3/uL (140-450); Red Blood Cells 2.57 10^6/uL (4.0-5.20); Red Cell Distribution Width 14.9 % (11.8-14.3); White Blood Cell 8.9 10^3/uL (4.4-10.8)
[2024-08-20 12:35] LABS: Basophils % (manual) 0 (0.0-2.0); Blast Cells 0; Eosinophils % (manual) 0 (0-7); Metamyelocytes % 0; Myelocytes % 0; Promyelocytes % 0; Reactive Lymphocytes 0
[2024-08-20 12:48] LABS: Alanine Aminotransferase 10 U/L (7-40); Albumin 2.4 g/dL (3.2-4.8); Alkaline Phosphatase 57 U/L (46-116); Anion Gap 4 (5-15); Aspartate Aminotransferase 25 U/L (13-40); BUN/Creatinine Ratio 10.6 (10.0-20.0); Blood Urea Nitrogen 22 mg/dL (9-23); Calcium 6.9 mg/dL (8.7-10.4); Carbon Dioxide 25 mmol/L (20-31); Chloride 103 mmol/L (98-107); Glucose 181 mg/dL (74-106); Magnesium 1.9 mg/dL (1.6-2.6); Potassium 3.4 mmol/L (3.5-5.1); Sodium 132 mmol/L (136-145)
[2024-08-20 12:49] LABS: Bilirubin, Total 1.6 mg/dL (0.2-1.0); Phosphorus 3.1 mg/dL (2.4-5.1); Total Protein 4.5 g/dL (5.7-8.2)
[2024-08-20 12:53] LABS: Band Neutrophils % (manual) 25; Lymphocytes % (manual) 8 (10.0-50.0); Monocytes % (manual) 1 (0-12)
[2024-08-20 12:55] LABS: Platelet Estimate Decreased
[2024-08-20] MEDS ORDERED: fentaNYL CITRATE 100 MCG/2 ML VL ONE (13:08)
--- NOTE | 2024-08-20 14:12 | DVHPNRES ---
Progress Note Date Seen: Aug 19, 2024 Resident Creating Document: FRANCIS JONES RESIDENT Has the PT tested + for MRSA If YES, has PT been informed?: No Medical Necessity Reason Pt with a Central, PICC or Fol: Yes The following are medically ne: Central Line, Gutierrez Catheter Reason for gutierrez catheter: Strict I&O Subjective Review of Systems Hospital course: Alejandra Ang, a 34-year-old female with a history of hyperlipidemia (HLD) but no significant past medical history, presented to the emergency department with severe epigastric pain rated 10/10, which began this morning. She reported having watery diarrhea since eating pizza yesterday, and today developed crampy pain spreading throughout her abdomen, along with nausea, vomiting, and chills. She denies fever, chest pain, shortness of breath, fatigue, and weakness. family history positive for hypertriglyceridemia in paternal side With father affected. Alejandra lives with a roommate, occasionally drinks alcohol, but denies smoking and drug abuse. She has no past surgical or family history and no recent travel or sick contacts. Poor historian but she Noted previous extensive skin rash/ allergy to fenofibrate and presently on atorvastatin 40 mg daily only. toxicology unremarkable, UA negative, ABG shows signs of anion gap metabolic acidosis appropriately compensate d by tachypnea and tachycardia. Patient is decided to transferred to ICU for higher level of care and close monitoring. Patient seen and examined in ICU department. Patient underwent during weekend time with exploratory laparotomy for compartment syndrome. Continued to be on ventilation, sedated. Patient has dressing with wound VAC of open abdominal compartment. Patient continued to get monitored with intra-abdominal pressure q.4. Patient initiated back on insulin drip, IV fluids. D5 W 100 mL/hour. Review of system can not obtained given patient is intubated. Objective vital signs Vital Sign Date Time Temp Pulse Resp B/P (MAP) Pulse Ox O2 Delivery O2 Flow Rate FiO2 08/20/24 12:38 113/58 08/20/24 11:48 81 28 100 30 08/20/24 11:15 99.0 210.2 08/20/24 10:00 Mechanical Ventilator+ Total Intake and Output 08/19/24 08/19/24 08/20/24 15:00 23:00 07:00 Intake Total 1177.308 ml 2612.430 ml 1000.010 ml Output Total 4250 ml 4115 ml Balance 1177.308 ml -1637.570 ml -3114.990 ml medications Current Medications Medications Dose Ordered Sig/Snow Route Start Time Stop Time Status Last Admin Dose Admin Sodium Chloride 10 ml Q8HR IV 08/14/24 22:00 08/20/24 06:20 10 ML Pantoprazole Sodium 40 mg DAILY IV 08/15/24 10:00 08/20/24 10:00 40 MG Ergocalciferol 50,000 unit Q7D PO 08/15/24 10:00 08/15/24 08:53 50,000 UNIT Dextrose 50 ml UD PRN IV 08/15/24 12:45 Insulin Human (Reg)/Sodium Chloride 100 ml @ 3 mls/hr Q24H IV 08/15/24 18:15 08/20/24 10:13 3 MLS/HR Diagnostic Test (Pha) 1 strip Q1HR 08/15/24 20:30 08/20/24 12:18 1 STRIP Midazolam HCl 50 ml @ 1 mls/hr Q24H IV 08/16/24 11:30 08/20/24 12:25 15 MLS/HR Linezolid 300 ml @ 150 mls/hr Q12HR IV 08/16/24 13:00 08/20/24 10:01 150 MLS/HR Dexmedetomidine HCl 400 mcg/ Dextrose 100 ml @ 3.695 mls/ hr Q24H IV 08/17/24 02:45 08/20/24 04:09 11.085 MLS/HR Acetaminophen 650 mg Q8HPRN PRN [place] 08/17/24 04:15 08/19/24 23:31 650 MG Calcitriol 1 mcg EOD IV 08/17/24 10:00 08/19/24 10:54 1 MCG Norepinephrine Bitartrate 250 ml @ 3.75 mls/hr Q24H IV 08/17/24 09:30 08/19/24 11:29 7.5 MLS/HR Iron Sucrose 110 ml @ 110 mls/hr DAILY@1200 IV 08/18/24 12:00 08/22/24 12:59 08/20/24 11:54 110 MLS/HR Rocuronium [place] 1000 mg/ Dextrose 250 ml @ 10.608 mls/ hr [id number] IV 08/18/24 13:30 08/18/24 13:30 10.608 MLS/HR Furosemide 40 mg BIDD IV 08/19/24 18:00 08/20/24 06:19 40 MG Fentanyl Citrate 250 ml @ 2.5 mls/hr Q24H IV 08/19/24 10:45 08/20/24 12:38 2.5 MLS/HR Meropenem 50 ml @ 17 mls/hr Q12H IV 08/19/24 17:00 08/20/24 04:25 17 MLS/HR Amino Acids 0 ml @ 0 mls/hr PER PHARMACY IV 08/19/24 14:45 Amino Acids 1,000 ml @ 41 mls/hr [id number] IV 08/19/24 22:00 08/20/24 21:59 08/19/24 21:59 41 MLS/HR Sodium Chloride 10 ml QSHIFT@10,22 IV 08/19/24 22:00 08/20/24 10:01 10 ML Sodium Acetate 20 meq/Potassium Acetate 40 meq/ Potassium Phosphate 11 meq/ Calcium Gluconate 6.9 meq/Magnesium Sulfate 8 meq/ Multivitamins 10 ml/Amino Acids/ Dextrose 759.3387 ml @ 31 mls/hr [id number] IV 08/20/24 22:00 08/21/24 21:59 Dextrose 1,000 ml @ 100 mls/hr Q10H IV 08/20/24 12:30 08/20/24 12:57 100 MLS/HR Examination General Appearance: BELLO S - 3, sedated and mechanical ventilation Head Exam: Normal inspection Neck Exam: Normal inspection. Non-tender. Normal alignment Pulmonary/Respiratory: Chest non-tender. Clear bilateral breath sounds Cardiovascular/Chest: Regular rate and rhythm. No murmurs. No JVD. Peripheral Pulses: 2+ Radial (R). 2+ Radial (L). 2+ Pedal (R). 2+ Pedal (L) Abdominal Exam: Presence of dressing with open abdominal compartment given underwent exploratory laparotomy. Presence of wound VAC. abdomen distended. Ankle Exam: Negative ankle edema Lower extremities: Negative lower extremity edema Neuro/Mental Status: Sedated. laboratory and microbiology Laboratory Tests 08/20/24 12:09 Test 08/20/24 12:09 Range/Units Serum Glucose 181 H 74-106 mg/dL Microbiology Date/Time Source Procedure Growth Status 08/16/24 11:57 Sputum Gram Stain - Final Resulted 08/16/24 11:57 Sputum Respiratory Culture - Preliminary Resulted 08/16/24 01:00 Urine - Midstream Clean Catch Urine Culture - Final Complete 08/15/24 13:32 Nose MRSA Screen - Final Complete 08/15/24 10:33 Blood Blood Culture - Final NO GROWTH AFTER 5 DAYS OF INCUBATION. Complete Problem List/Assessment/Plan Problem List/Assessment/Plan Acute pancreatitis likely due to severe hypertriglyceridemia -currently on insulin 3 units/hour, non titratable -continue check trend of triglyceride q.12 -continue check trend of blood glucose Q 1 hour: Target blood glucose level (90-180 mg/dL). Stopped insulin drip if blood sugar less than 90. -continue D5 W 200 mL/hour -NPO -abdomen/pelvis CT(08/16/24): Acute pancreatitis, no evidence of necrosis or pseudocyst. -monitor potassium level q.6: Target potassium greater than 4.5. Received 40 mEq of potassium. -currently on antibiotic meropenem and linezolid. -serum alcohol less than three, chest ultrasound: No cholelithiasis. -IV albumin 25 g Q eight given 3rd spacing of IV fluids as needed. -stop insulin when triglyceride level at 500. Abdominal compartment syndrome status post decompression -status post decompressive laparotomy (08/18/2024) -drainage via wound VAC as per surgery -continue to monitor intra-abdominal pressure -continue IV antibiotic -plan for re-evaluation in 2-3 days. Acute hypercapnic/hypoxic respiratory failure due to above -on mechanical ventilation: Respiratory rate 16, tidal volume 400, FiO2 100%, peep five -CT chest: Bilateral pleural effusions with bibasilar atelectasis and consolidation. IV lasix 40 mg daily -IV antibiotic with meropenem and linezolid. Severe anemia -received 4 units of PRBCs. -repeat H&H Q 8 hour. -replete if hemoglobin less than seven. Familial hypertriglyceridemia -continue current management of acute pancreatitis. Anion gap metabolic acidosis due to lactic acidosis: Resolved -continue with IV fluids. Moderate ascites -IR consultation for paracentesis Bilateral pleural effusion -Lasix 40 mg IV daily -continue to monitor electrolytes including potassium q.4. Sirs due to acute pancreatitis, no sepsis -continue current management of acute pancreatitis Pseudo hyponatremia -today 132 given hyperglycemia and hypertriglyceridemia. -continue to monitor. Severe Hypocalcemia -IV calcitriol 1 mcg IV given once. -IV calcium gluconate 100 mcg given per Nephrology. -repeat calcium level Q six. -monitor for EKG changes of hypocalcemia Hypophosphatemia -phosphorus level 0.8, 1.1. -sodium phosphate 40 mEq given -repeat phosphorus level in a.m.. Hypomagnesemia -magnesium level 1.3, 1.9. -received magnesium sulfate 1 g IV. -repeat magnesium level in a.m.. PUD prophylaxis: Protonix DVT prophylaxis: Enoxaparin Lines: Right IJ central line inserted on 08/16/2024 Right femoral a line inserted on 08/16/2024 Intubated on 08/16/2024 PIcc line on 08/19/24 Gutierrez catheter G-tube Goals of care, full code discussed greater than 24 minutes Critical care time spent greater than 89 minutes. Discussed with family as well. Plan discussed with Dr Bang Plan discussed with: Other (father, RN) My Orders My Orders Orders - FRANCIS JONES RESIDENT Procedure Category Date Status Time Chest Xray 1 View XY 08/20/24 Resulted 04:00 Abg W/ Co-Ox RT 08/20/24 Logged 04:00 Date of Service: Aug 19, 2024 Billing Provider: DARWIN BANG MD Common Visit Codes: 03970-[id number] CARE 30-74 MIN FRANCIS JONES Aug 20, 2024 14:12 DARWIN BANG MD Aug 21, 2024 13:13
[2024-08-20] MEDS ORDERED: ROCURONIUM 10MG/ML 10ML VIAL IV ONE (14:32)
[2024-08-20] MEDS: INSULIN DRIP 100 UNIT/100ML 100 ML IV SCH (16:00)
[2024-08-20] MEDS: MAGNESIUM SULFATE 1GM/100ML 100 ML IV ONE (16:40)
[2024-08-20] MEDS: POTASSIUM CHL 20MEQ/100ML 100 ML IV SCH (16:47)
--- NOTE | 2024-08-20 17:52 | DVHOP ---
DATE OF SURGERY: 08/20/2024 PREOPERATIVE DIAGNOSIS: Abdominal compartment syndrome. POSTOPERATIVE DIAGNOSIS: Abdominal compartment syndrome. SURGEON: Sebastián Darby MD PLYWOOD PATCHER: Patrick Almeida. ANESTHESIA: General. ANESTHESIOLOGIST: ____ . PROCEDURES: Exploratory laparotomy, irrigation of the abdomen, closure of the abdomen by means of a 10/10 drape and Prolene sutures DESCRIPTION OF PROCEDURE: Under adequate anesthesia, with the patient's skin prepped and draped, old packing removed and her abdomen was irrigated, irrigant was aspirated. Inspection revealed viable bowel and viable omentum. No evidence of necrosis. Following aspiration of the irrigant, A 10/10 drape was sutured to the fascia using 0 Prolene running sutures. The patient remained in unchanged condition at the termination of the procedure, left the operating room following an accurate needle and sponge count. Her father, Boyd was thoroughly informed at [phone]. Sebastián Darby MD PF TID: [id number] RECEIPT: [id number]
--- NOTE | 2024-08-20 18:46 | DVHPNRES ---
Progress Note Date Seen: Aug 20, 2024 Resident Creating Document: FRANCIS JONES RESIDENT Has the PT tested + for MRSA If YES, has PT been informed?: No Medical Necessity Reason Pt with a Central, PICC or Fol: Yes The following are medically ne: Central Line, Gutierrez Catheter Reason for gutierrez catheter: Strict I&O Subjective Review of Systems Hospital course: Alejandra Ang, a 34-year-old female with a history of hyperlipidemia (HLD) but no significant past medical history, presented to the emergency department with severe epigastric pain rated 10/10, which began this morning. She reported having watery diarrhea since eating pizza yesterday, and today developed crampy pain spreading throughout her abdomen, along with nausea, vomiting, and chills. She denies fever, chest pain, shortness of breath, fatigue, and weakness. family history positive for hypertriglyceridemia in paternal side With father affected. Alejandra lives with a roommate, occasionally drinks alcohol, but denies smoking and drug abuse. She has no past surgical or family history and no recent travel or sick contacts. Poor historian but she Noted previous extensive skin rash/ allergy to fenofibrate and presently on atorvastatin 40 mg daily only. toxicology unremarkable, UA negative, ABG shows signs of anion gap metabolic acidosis appropriately compensate d by tachypnea and tachycardia. Patient is decided to transferred to ICU for higher level of care and close monitoring. Patient seen and examined in ICU department. Patient underwent re-exploration of abdomen for compartment syndrome. Patient continued to be on ventilator and sedated. Patient is on higher level of fentanyl 400 mics per hour, patient is still continued to be having grimaces on palpation of abdomen. We will continue with current pain management . Review of system can not obtained given patient is intubated. Objective vital signs Vital Sign Date Time Temp Pulse Resp B/P (MAP) Pulse Ox O2 Delivery O2 Flow Rate FiO2 08/20/24 18:21 115/63 08/20/24 18:00 24 100 Mechanical Ventilator+ 30 30 08/20/24 18:00 82 08/20/24 15:30 99.1 210.4 Total Intake and Output 08/19/24 08/19/24 08/20/24 15:00 23:00 07:00 Intake Total 1177.308 ml 2612.430 ml 1160.095 ml Output Total 4250 ml 4115 ml Balance 1177.308 ml -1637.570 ml -2954.905 ml medications Current Medications Medications Dose Ordered Sig/Snow Route Start Time Stop Time Status Last Admin Dose Admin Sodium Chloride 10 ml Q8HR IV 08/14/24 22:00 08/20/24 15:03 10 ML Pantoprazole Sodium 40 mg DAILY IV 08/15/24 10:00 08/20/24 10:00 40 MG Ergocalciferol 50,000 unit Q7D PO 08/15/24 10:00 08/15/24 08:53 50,000 UNIT Dextrose 50 ml UD PRN IV 08/15/24 12:45 Diagnostic Test (Pha) 1 strip Q1HR 08/15/24 20:30 08/20/24 18:15 1 STRIP Midazolam HCl 50 ml @ 1 mls/hr Q24H IV 08/16/24 11:30 08/20/24 18:19 15 MLS/HR Linezolid 300 ml @ 150 mls/hr Q12HR IV 08/16/24 13:00 08/20/24 10:01 150 MLS/HR Dexmedetomidine HCl 400 mcg/ Dextrose 100 ml @ 3.695 mls/ hr Q24H IV 08/17/24 02:45 08/20/24 15:02 11.085 MLS/HR Acetaminophen 650 mg Q8HPRN PRN IN 08/17/24 04:15 08/19/24 23:31 650 MG Calcitriol 1 mcg EOD IV 08/17/24 10:00 08/19/24 10:54 1 MCG Norepinephrine Bitartrate 250 ml @ 3.75 mls/hr Q24H IV 08/17/24 09:30 08/19/24 11:29 7.5 MLS/HR Iron Sucrose 110 ml @ 110 mls/hr DAILY@1200 IV 08/18/24 12:00 08/22/24 12:59 08/20/24 11:54 110 MLS/HR Rocuronium [place] 1000 mg/ Dextrose 250 ml @ 10.608 mls/ hr [id number] IV 08/18/24 13:30 08/18/24 13:30 10.608 MLS/HR Furosemide 40 mg BIDD IV 08/19/24 18:00 08/20/24 16:47 40 MG Fentanyl Citrate 250 ml @ 2.5 mls/hr Q24H IV 08/19/24 10:45 08/20/24 18:21 40 MLS/HR Meropenem 50 ml @ 17 mls/hr Q12H IV 08/19/24 17:00 08/20/24 17:33 17 MLS/HR Amino Acids 0 ml @ 0 mls/hr PER PHARMACY IV 08/19/24 14:45 Amino Acids 1,000 ml @ 41 mls/hr [id number] IV 08/19/24 22:00 08/20/24 21:59 08/19/24 21:59 41 MLS/HR Sodium Chloride 10 ml QSHIFT@10,22 IV 08/19/24 22:00 08/20/24 10:01 10 ML Sodium Acetate 20 meq/Potassium Acetate 40 meq/ Potassium Phosphate 11 meq/ Calcium Gluconate 6.9 meq/Magnesium Sulfate 8 meq/ Multivitamins 10 ml/Amino Acids/ Dextrose 759.3387 ml @ 31 mls/hr [id number] IV 08/20/24 22:00 08/21/24 21:59 Dextrose 1,000 ml @ 100 mls/hr Q10H IV 08/20/24 12:30 08/20/24 12:57 100 MLS/HR Insulin Human (Reg)/Sodium Chloride 100 ml @ 2 mls/hr Q24H IV 08/20/24 16:00 08/20/24 16:00 2 MLS/HR Potassium Chloride 100 ml @ 50 mls/hr Q2H IV 08/20/24 16:00 08/20/24 21:59 08/20/24 18:14 50 MLS/HR Examination General Appearance: BELLO S - 3, sedated and mechanical ventilation Head Exam: Normal inspection Neck Exam: Normal inspection. Non-tender. Normal alignment Pulmonary/Respiratory: Chest non-tender. Clear bilateral breath sounds Cardiovascular/Chest: Regular rate and rhythm. No murmurs. No JVD. Peripheral Pulses: 2+ Radial (R). 2+ Radial (L). 2+ Pedal (R). 2+ Pedal (L) Abdominal Exam: Presence of dressing with open abdominal compartment given underwent exploratory laparotomy. Presence of wound VAC. abdomen distended. Ankle Exam: Negative ankle edema Lower extremities: Negative lower extremity edema Neuro/Mental Status: Sedated. laboratory and microbiology Laboratory Tests 08/20/24 12:09 Test 08/20/24 12:09 Range/Units Serum Glucose 181 H 74-106 mg/dL Microbiology Date/Time Source Procedure Growth Status 08/16/24 11:57 Sputum Gram Stain - Final Complete 08/16/24 11:57 Respiratory Culture - Final Beta Strep Non-A, Non-B Complete 08/16/24 01:00 Urine - Midstream Clean Catch Urine Culture - Final Complete 08/15/24 13:32 Nose MRSA Screen - Final Complete 08/15/24 10:33 Blood Blood Culture - Final NO GROWTH AFTER 5 DAYS OF INCUBATION. Complete Problem List/Assessment/Plan Problem List/Assessment/Plan Acute pancreatitis likely due to severe hypertriglyceridemia -currently on insulin 2 units/hour, non titratable -continue check trend of triglyceride q.12 -continue check trend of blood glucose Q 1 hour: Target blood glucose level (90-180 mg/dL). Stopped insulin drip if blood sugar less than 90. -continue D5 W 200 mL/hour -NPO -abdomen/pelvis CT(08/16/24): Acute pancreatitis, no evidence of necrosis or pseudocyst. -monitor potassium level q.6: Target potassium greater than 4.5. Received 40 mEq of potassium. -currently on antibiotic meropenem and linezolid. -serum alcohol less than three, chest ultrasound: No cholelithiasis. -IV albumin 25 g Q eight given 3rd spacing of IV fluids as needed. -stop insulin when triglyceride level at 500. Abdominal compartment syndrome status post decompression -status post decompressive laparotomy (08/18/2024) -re exploratory irrigation of abdomen on 08/20/2024 -drainage via wound VAC as per surgery -continue to monitor intra-abdominal pressure -continue IV antibiotic -plan for re-evaluation in 2-3 days. Acute hypercapnic/hypoxic respiratory failure due to above -on mechanical ventilation: Respiratory rate 16, tidal volume 400, FiO2 100%, peep five -CT chest: Bilateral pleural effusions with bibasilar atelectasis and consolidation. IV lasix 40 mg daily -IV antibiotic with meropenem and linezolid. Severe anemia -received 4 units of PRBCs. -repeat H&H Q 8 hour. -replete if hemoglobin less than seven. Familial hypertriglyceridemia -continue current management of acute pancreatitis. Anion gap metabolic acidosis due to lactic acidosis: Resolved -continue with IV fluids. Moderate ascites -IR consultation for paracentesis Bilateral pleural effusion -Lasix 40 mg IV daily -continue to monitor electrolytes including potassium q.4. Sirs due to acute pancreatitis, no sepsis -continue current management of acute pancreatitis hyponatremia improving -continue monitor Q eight HR Severe Hypocalcemia -calcitriol and IV calcium per Nephrology Hypophosphatemia -repeat phosphorus level p.r.n. Hypomagnesemia -repeat magnesium level in a.m.. PUD prophylaxis: Protonix DVT prophylaxis: Enoxaparin Lines: Right IJ central line inserted on 08/16/2024 Right femoral a line inserted on 08/16/2024 Intubated on 08/16/2024 PIcc line on 08/19/24 Gutierrez catheter G-tube Goals of care, full code discussed greater than 24 minutes Critical care time spent greater than 84 minutes. Discussed with family as well. Plan discussed with Dr Bang Plan discussed with: Other (father, RN) My Orders My Orders Orders - FRANCIS JONES RESIDENT Procedure Category Date Status Time Ventilator Orders RT 08/20/24 Transmitted 14:06 Dietary Evaluation Review Comments: 1) Increase TPN to meet at least 75% of estimated needs 2) Advance pt diet when medically feasible to a Low Fat diet 3) Continue current plan of care Expected Outcomes/Goals: 1) Pt diet to advance 2) Pt labs to improve 3) F/U in 2-3 days Date of Service: Aug 20, 2024 Billing Provider: DARWIN BANG MD Common Visit Codes: [id number] CARE 30-74 MIN FRANCIS JONES Aug 20, 2024 18:46 DARWIN BANG MD Aug 21, 2024 13:19
[2024-08-20 20:17] LABS: Basophils # (auto) 0 10 ^3/uL (0-0.2); Basophils % (auto) 0.2 % (0.0-2.0); Eosinophils # (auto) 0.1 10 ^3/uL (0-0.8); Hemoglobin 7.8 g/dL (12.2-16.2); Red Cell Distribution Width 15.2 % (11.8-14.3); White Blood Cell 11.9 10^3/uL (4.4-10.8)
[2024-08-20 20:19] LABS: Hematocrit 22.2 % (36.0-46.0); Lymphocytes # (auto) 0.7 10 ^3/uL (0.4-5.4); Lymphocytes % (auto) 5.9 % (10.0-50.0); Mean Corpuscular Hemoglobin 29.5 pg (28.0-32.0); Mean Corpuscular Hgb Conc. 35.1 g/dL (32.0-36.0); Mean Corpuscular Volume 84.1 fL (80.0-100.0); Monocytes # (auto) 0.5 10 ^3/uL (0-1.3); Monocytes % (auto) 4.1 % (0.0-12.0); Neutrophils # (auto) 10.5 10 ^3/uL (1.6-8.6); Neutrophils % (auto) 88.8 % (37.0-80.0); Nucleated Red Blood Cells % 0.2 %; Platelet Count (auto) 88 10^3/uL (140-450); Red Blood Cells 2.64 10^6/uL (4.0-5.20)
[2024-08-20 20:37] LABS: Alkaline Phosphatase 57 U/L (46-116); Anion Gap 6 (5-15); Aspartate Aminotransferase 16 U/L (13-40); BUN/Creatinine Ratio 10.8 (10.0-20.0); Blood Urea Nitrogen 22 mg/dL (9-23); Calcium 7.5 mg/dL (8.7-10.4); Carbon Dioxide 22 mmol/L (20-31); Chloride 102 mmol/L (98-107); Glucose 167 mg/dL (74-106); Potassium 4.2 mmol/L (3.5-5.1); Sodium 130 mmol/L (136-145)
[2024-08-20 20:38] LABS: Albumin 2.6 g/dL (3.2-4.8); Bilirubin, Total 1.4 mg/dL (0.2-1.0); Phosphorus 3.8 mg/dL (2.4-5.1); Total Protein 4.8 g/dL (5.7-8.2)
[2024-08-20 20:43] LABS: Alanine Aminotransferase 9 U/L (7-40)
[2024-08-20] MEDS: TPN PER PHARMACY IV NR (22:23)
[2024-08-21] VITALS (108 sets, daily range): BP systolic 105–194; BP diastolic 29–183; PULSE 81–114; RESP 11–30; TEMP 98.8–100.4; O2SAT 92–100
[2024-08-21] MEDS: FUROSEMIDE 20 MG/2 ML VIAL IV ONE (00:05)
[2024-08-21 03:41] LABS: Hematocrit 22.6 % (36.0-46.0); Hemoglobin 8.1 g/dL (12.2-16.2); Mean Corpuscular Hgb Conc. 35.7 g/dL (32.0-36.0); Mean Corpuscular Volume 84.1 fL (80.0-100.0); Platelet Count (auto) 105 10^3/uL (140-450); Red Blood Cells 2.68 10^6/uL (4.0-5.20); Red Cell Distribution Width 15.3 % (11.8-14.3); White Blood Cell 14.1 10^3/uL (4.4-10.8)
[2024-08-21 04:01] LABS: Albumin 2.8 g/dL (3.2-4.8); Alkaline Phosphatase 59 U/L (46-116); Anion Gap 8 (5-15); Aspartate Aminotransferase 25 U/L (13-40); BUN/Creatinine Ratio 11.2 (10.0-20.0); Bilirubin, Total 1.3 mg/dL (0.2-1.0); Blood Urea Nitrogen 21 mg/dL (9-23); Carbon Dioxide 21 mmol/L (20-31); Chloride 100 mmol/L (98-107); Glucose 209 mg/dL (74-106); Phosphorus 3.2 mg/dL (2.4-5.1); Sodium 129 mmol/L (136-145); Total Protein 4.9 g/dL (5.7-8.2)
[2024-08-21 04:03] LABS: Alanine Aminotransferase 9 U/L (7-40)
[2024-08-21 04:11] LABS: Basophils % (manual) 0 (0.0-2.0); Blast Cells 0; Promyelocytes % 0; Reactive Lymphocytes 0
--- NOTE | 2024-08-21 04:43 | DVH ---
EXAM: XY CHEST XRAY 1 VIEW Indication:on vent Technique: Single frontal view of the chest was obtained Comparison: XY CHEST XRAY 1 VIEW on DOS: 08/20/24, XY CHEST PORTABLE on DOS: 08/19/24, XY CHEST XRAY 1 VIEW on DOS: 08/18/24, XY CHEST PORTABLE on DOS: 08/17/24, XY CHEST XRAY 1 VIEW on DOS: 08/16/24, XY CHEST XRAY 1 VIEW on DOS: 08/20/24 FINDINGS: Lines and Tubes: Endotracheal tube and enteric catheter in satisfactory position. Right central venou s catheter in satisfactory position. Lungs: Low lung volumes with diffuse interstitial opacities. Pleura: No effusion. No pneumothorax. Cardiomediastinal contours: Unremarkable Bones: Unremarkable IMPRESSION: No significant change compared to prior exam. Low lung volumes.
[2024-08-21 05:09] LABS: Band Neutrophils % (manual) 9; Eosinophils % (manual) 1 (0-7); Lymphocytes % (manual) 5 (10.0-50.0); Metamyelocytes % 2; Monocytes % (manual) 5 (0-12); Myelocytes % 2
[2024-08-21 05:10] LABS: Anisocytosis Slight; Platelet Estimate Decreased; Stomatocytes Few
[2024-08-21] MEDS: DexmedeTOMIDine 4 ML IV ONE (06:10)
[2024-08-21 06:13] LABS: Base Excess -2.7 mmol/L (-2.0-3.0)
[2024-08-21] MEDS: POTASSIUM CHL 20MEQ/100ML 100 ML IV SCH (08:47)
[2024-08-21] MEDS: FUROSEMIDE 40 MG/4 ML VIAL IV ONE (09:45)
[2024-08-21] MEDS: fentaNYL Drip 2500mCg/250mlNS 250 ML IV SCH (11:47)
[2024-08-21 12:15] LABS: Hemoglobin 7.9 g/dL (12.2-16.2)
[2024-08-21 12:17] LABS: Hematocrit 22.9 % (36.0-46.0); Mean Corpuscular Hgb Conc. 34.3 g/dL (32.0-36.0); Mean Corpuscular Volume 84.4 fL (80.0-100.0); Platelet Count (auto) 107 10^3/uL (140-450); Red Blood Cells 2.72 10^6/uL (4.0-5.20); Red Cell Distribution Width 15.1 % (11.8-14.3); White Blood Cell 14.9 10^3/uL (4.4-10.8)
[2024-08-21 12:23] LABS: Basophils % (manual) 0 (0.0-2.0); Blast Cells 0; Promyelocytes % 0; Reactive Lymphocytes 0
[2024-08-21 12:31] LABS: Alanine Aminotransferase 10 U/L (7-40); Albumin 2.8 g/dL (3.2-4.8); Alkaline Phosphatase 60 U/L (46-116); Anion Gap 6 (5-15); Aspartate Aminotransferase 25 U/L (13-40); Calcium 8.2 mg/dL (8.7-10.4); Carbon Dioxide 24 mmol/L (20-31); Chloride 100 mmol/L (98-107); Glucose 243 mg/dL (74-106); Potassium 4.5 mmol/L (3.5-5.1); Sodium 130 mmol/L (136-145)
[2024-08-21 12:32] LABS: BUN/Creatinine Ratio 11.6 (10.0-20.0); Blood Urea Nitrogen 20 mg/dL (9-23); Magnesium 1.9 mg/dL (1.6-2.6)
[2024-08-21 12:34] LABS: Phosphorus 3.4 mg/dL (2.4-5.1); Total Protein 5.1 g/dL (5.7-8.2)
[2024-08-21 12:43] LABS: Band Neutrophils % (manual) 19; Eosinophils % (manual) 1 (0-7); Lymphocytes % (manual) 5 (10.0-50.0); Metamyelocytes % 1; Monocytes % (manual) 3 (0-12); Myelocytes % 3; Platelet Estimate Decreased
[2024-08-21] MEDS: MORPHINE SULFATE INJ 2 MG/ml SYRG IV PRN (13:44)
--- NOTE | 2024-08-21 13:58 | DVHPNRES ---
Progress Note Date Seen: Aug 21, 2024 Resident Creating Document: FRANCIS JONES RESIDENT Has the PT tested + for MRSA If YES, has PT been informed?: No Medical Necessity Reason Pt with a Central, PICC or Fol: Yes The following are medically ne: Central Line, Gutierrez Catheter Reason for gutierrez catheter: Strict I&O Subjective Review of Systems Hospital course: Alejandra Ang, a 34-year-old female with a history of hyperlipidemia (HLD) but no significant past medical history, presented to the emergency department with severe epigastric pain rated 10/10, which began this morning. She reported having watery diarrhea since eating pizza yesterday, and today developed crampy pain spreading throughout her abdomen, along with nausea, vomiting, and chills. She denies fever, chest pain, shortness of breath, fatigue, and weakness. family history positive for hypertriglyceridemia in paternal side With father affected. Alejandra lives with a roommate, occasionally drinks alcohol, but denies smoking and drug abuse. She has no past surgical or family history and no recent travel or sick contacts. Poor historian but she Noted previous extensive skin rash/ allergy to fenofibrate and presently on atorvastatin 40 mg daily only. toxicology unremarkable, UA negative, ABG shows signs of anion gap metabolic acidosis appropriately compensate d by tachypnea and tachycardia. Patient is decided to transferred to ICU for higher level of care and close monitoring. Patient seen and examined in ICU department. Patient underwent re-exploration of abdomen for compartment syndrome. Patient continued to be on ventilator and sedated. Patient is on higher level of fentanyl 400 mics per hour, patient is still continued to be having grimaces on palpation of abdomen. Increase fentanyl to 450 mph. We will continue with current pain management . Continue with insulin drip and D 10 W. 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 Review of system can not obtained given patient is intubated. Objective vital signs Vital Sign Date Time Temp Pulse Resp B/P (MAP) Pulse Ox O2 Delivery O2 Flow Rate FiO2 08/21/24 13:44 87 16 127/62 08/21/24 13:42 100 30 08/21/24 12:00 Mechanical Ventilator+ 08/21/24 10:45 99.1 210.4 Total Intake and Output 08/20/24 08/20/24 08/21/24 15:00 23:00 07:00 Intake Total 1715.680 ml 1614.680 ml 1456.528 ml Output Total 3960 ml 4100 ml Balance 1715.680 ml -2345.320 ml -2643.472 ml medications Current Medications Medications Dose Ordered Sig/Snow Route Start Time Stop Time Status Last Admin Dose Admin Sodium Chloride 10 ml Q8HR IV 08/14/24 22:00 08/21/24 08:20 10 ML Pantoprazole Sodium 40 mg DAILY IV 08/15/24 10:00 08/21/24 08:55 40 MG Ergocalciferol 50,000 unit Q7D PO 08/15/24 10:00 08/15/24 08:53 50,000 UNIT Dextrose 50 ml UD PRN IV 08/15/24 12:45 Diagnostic Test (Pha) 1 strip Q1HR 08/15/24 20:30 08/21/24 13:22 1 STRIP Midazolam HCl 50 ml @ 1 mls/hr Q24H IV 08/16/24 11:30 08/21/24 11:43 15 MLS/HR Linezolid 300 ml @ 150 mls/hr Q12HR IV 08/16/24 13:00 08/21/24 08:55 150 MLS/HR Dexmedetomidine HCl 400 mcg/ Dextrose 100 ml @ 3.695 mls/ hr Q24H IV 08/17/24 02:45 08/21/24 05:58 11.085 MLS/HR Acetaminophen 650 mg Q8HPRN PRN LA 08/17/24 04:15 08/19/24 23:31 650 MG Calcitriol 1 mcg EOD IV 08/17/24 10:00 08/21/24 08:56 1 MCG Norepinephrine Bitartrate 250 ml @ 3.75 mls/hr Q24H IV 08/17/24 09:30 08/19/24 11:29 7.5 MLS/HR Iron Sucrose 110 ml @ 110 mls/hr DAILY@1200 IV 08/18/24 12:00 08/22/24 12:59 08/21/24 12:59 110 MLS/HR Rocuronium [place] 1000 mg/ Dextrose 250 ml @ 10.608 mls/ hr [id number] IV 08/18/24 13:30 08/18/24 13:30 10.608 MLS/HR Furosemide 40 mg BIDD IV 08/19/24 18:00 08/20/24 16:47 40 MG Meropenem 50 ml @ 17 mls/hr Q12H IV 08/19/24 17:00 08/21/24 05:30 17 MLS/HR Amino Acids 0 ml @ 0 mls/hr PER PHARMACY IV 08/19/24 14:45 Sodium Chloride 10 ml QSHIFT@10,22 IV 08/19/24 22:00 08/21/24 08:55 10 ML Sodium Acetate 20 meq/Potassium Acetate 40 meq/ Potassium Phosphate 11 meq/ Calcium Gluconate 6.9 meq/Magnesium Sulfate 8 meq/ Multivitamins 10 ml/Amino Acids/ Dextrose 759.3387 ml @ 31 mls/hr [id number] IV 08/20/24 22:00 08/21/24 21:59 08/20/24 22:23 31 MLS/HR Insulin Human (Reg)/Sodium Chloride 100 ml @ 2 mls/hr Q24H IV 08/20/24 16:00 08/20/24 16:00 2 MLS/HR Dextrose 1,000 ml @ 75 mls/hr [id number] IV 08/20/24 21:30 08/20/24 21:30 75 MLS/HR Sodium Acetate 50 meq/Potassium Acetate 20 meq/ Potassium Phosphate 11 meq/ Calcium Gluconate 4.65 meq/ Magnesium Sulfate 8 meq/ Multivitamins 10 ml/Chromium/ Copper/Manganese/ Zinc 1 ml/Amino Acids/Dextrose 860.5 ml @ 35 mls/hr [id number] IV 08/21/24 22:00 08/22/24 21:59 Fentanyl Citrate 250 ml @ 2.5 mls/hr Q24H IV 08/21/24 11:00 08/21/24 11:47 42.5 MLS/HR Rocuronium [place] 50 mg Q6HR PRN IV 08/21/24 11:45 Morphine Sulfate 2 mg Q4HPRN PRN IV 08/21/24 11:45 08/21/24 13:44 2 MG Examination General Appearance: BELLO S - 3, sedated and mechanical ventilation Head Exam: Normal inspection Neck Exam: Normal inspection. Non-tender. Normal alignment Pulmonary/Respiratory: Chest non-tender. Clear bilateral breath sounds Cardiovascular/Chest: Regular rate and rhythm. No murmurs. No JVD. Peripheral Pulses: 2+ Radial (R). 2+ Radial (L). 2+ Pedal (R). 2+ Pedal (L) Abdominal Exam: Presence of dressing with open abdominal compartment given underwent exploratory laparotomy. Presence of wound VAC. abdomen distended. Ankle Exam: Negative ankle edema Lower extremities: Negative lower extremity edema Neuro/Mental Status: Sedated. laboratory and microbiology Laboratory Tests 08/21/24 11:55 Test 08/21/24 11:55 Range/Units Serum Glucose 243 H 74-106 mg/dL Microbiology Date/Time Source Procedure Growth Status 08/16/24 11:57 Sputum Gram Stain - Final Complete 08/16/24 11:57 Respiratory Culture - Final Beta Strep Non-A, Non-B Complete 08/16/24 01:00 Urine - Midstream Clean Catch Urine Culture - Final Complete 08/15/24 13:32 Nose MRSA Screen - Final Complete 08/15/24 10:33 Blood Blood Culture - Final NO GROWTH AFTER 5 DAYS OF INCUBATION. Complete Problem List/Assessment/Plan Problem List/Assessment/Plan Acute pancreatitis likely due to severe hypertriglyceridemia -currently on insulin 2 units/hour, non titratable -continue check trend of triglyceride q.12: Last triglyceride 422 -continue check trend of blood glucose Q 1 hour: Target blood glucose level (90-180 mg/dL). Stopped insulin drip if blood sugar less than 90. -continue D10W 75 mL/hour -NPO -abdomen/pelvis CT(08/16/24): Acute pancreatitis, no evidence of necrosis or pseudocyst. -monitor potassium level q.6: Target potassium greater than 4.5. Received 40 mEq of potassium. -currently on antibiotic meropenem and linezolid. -serum alcohol less than three, chest ultrasound: No cholelithiasis. -IV albumin 25 g Q eight given 3rd spacing of IV fluids as needed. -stop insulin when triglyceride level at 500. Abdominal compartment syndrome status post decompression -status post decompressive laparotomy (08/18/2024) -re exploratory irrigation of abdomen on 08/20/2024 -drainage via wound VAC as per surgery -continue to monitor intra-abdominal pressure -continue IV antibiotic -plan for re-evaluation in 2-3 days. Acute hypercapnic/hypoxic respiratory failure due to above -on mechanical ventilation: Respiratory rate 16, tidal volume 400, FiO2 100%, peep five -CT chest: Bilateral pleural effusions with bibasilar atelectasis and consolidation. IV lasix 40 mg daily -IV antibiotic with meropenem and linezolid. Severe anemia -received 4 units of PRBCs. -repeat H&H Q 8 hour. -replete if hemoglobin less than seven. Familial hypertriglyceridemia -continue current management of acute pancreatitis. Anion gap metabolic acidosis due to lactic acidosis: Resolved -continue with IV fluids. Moderate ascites -IR consultation for paracentesis Bilateral pleural effusion -Lasix 40 mg IV daily -continue to monitor electrolytes including potassium q.4. Sirs due to acute pancreatitis, no sepsis -continue current management of acute pancreatitis hyponatremia improving -continue monitor Q eight HR Severe Hypocalcemia -calcitriol and IV calcium per Nephrology Hypophosphatemia -repeat phosphorus level p.r.n. Hypomagnesemia -repeat magnesium level in a.m.. PUD prophylaxis: Protonix DVT prophylaxis: Enoxaparin Lines: Right IJ central line inserted on 08/16/2024 Right femoral a line inserted on 08/16/2024 Intubated on 08/16/2024 PIcc line on 08/19/24 Gutierrez catheter G-tube Plan: Continue with insulin drip 1 units/hour, D5 W, antibiotics, pain management with fentanyl are 450 mcg per hour, Precedex and Versed. Reduced rate of insulin given triglyceride level is less than 500, change from D10 to D5W. Continue follow up with surgery's recommendation for compartment syndrome. Characterized rocker light as needed, target for potassium greater than 4.5. Goals of care, full code discussed greater than 24 minutes Critical care time spent greater than 84 minutes. Discussed with family as well. Plan discussed with Dr Bang Plan discussed with: Other My Orders My Orders Orders - FRANCIS JONES RESIDENT Procedure Category Date Status Time Ventilator Orders RT 08/20/24 Transmitted 14:06 Chest Xray 1 View XY 08/21/24 Resulted 05:00 Chest Xray 1 View XY 08/22/24 Logged 05:00 Chest Xray 1 View XY 08/23/24 Logged 05:00 Chest Xray 1 View XY 08/24/24 Logged 05:00 Chest Xray 1 View XY 08/25/24 Logged 05:00 Abg W/ Co-Ox RT 08/22/24 Logged 05:00 Abg W/ Co-Ox RT 08/23/24 Logged 05:00 Abg W/ Co-Ox RT 08/24/24 Logged 05:00 Abg W/ Co-Ox RT 08/25/24 Logged 05:00 Abg W/ Co-Ox RT 08/26/24 Logged 05:00 Transfer Orders XFER 08/20/24 Transmitted 21:02 Abg W/ Co-Ox RT 08/21/24 Logged 05:20 Dietary Evaluation Review Comments: 1) Increase TPN to meet at least 75% of estimated needs 2) Advance pt diet when medically feasible to a Low Fat diet 3) Continue current plan of care Expected Outcomes/Goals: 1) Pt diet to advance 2) Pt labs to improve 3) F/U in 2-3 days Date of Service: Aug 21, 2024 Billing Provider: DARWIN BANG MD Common Visit Codes: [id number] CARE 30-74 MIN FRANCIS JONES RESIDENT Aug 21, 2024 13:58 DARWIN BANG MD Aug 22, 2024 15:26
[2024-08-21] MEDS: INSULIN DRIP 100 UNIT/100ML 100 ML IV SCH (14:00)
[2024-08-21] MEDS ORDERED: INSULIN DRIP 100 UNIT/100ML 100 ML IV SCH ×2 (14:00→19:45)
[2024-08-21] MEDS: D5W/SOD CHLO 0.9% 1,000 ML IV SCH (14:00)
--- NOTE | 2024-08-21 16:05 | DVHPN2 ---
Progress Note - Dictate Date Seen: Aug 21, 2024 Has the PT tested + for MRSA If YES, has PT been informed?: No Medical Necessity Reason Pt with a Central, PICC or Fol: Yes The following are medically ne: Central Line, Gutierrez Catheter Reason for gutierrez catheter: Strict I&O Subjective Remains intubated in ICU Triglyceride level noted slightly improved Remains on insulin drip Family at bedside d10 was on yesterday Na 129 additional lasix given overnight fluids changed to isotonic this am vital signs Vital Sign Date Time Temp Pulse Resp B/P (MAP) Pulse Ox O2 Delivery O2 Flow Rate FiO2 08/21/24 15:30 99.1 89 22 122/68 (86) 100 210.4 125/61 (82) 08/21/24 15:28 30 08/21/24 14:00 Mechanical Ventilator+ Total Intake and Output 08/20/24 08/20/24 08/21/24 15:00 23:00 07:00 Intake Total 1715.680 ml 1614.680 ml 1456.528 ml Output Total 3960 ml 4100 ml Balance 1715.680 ml -2345.320 ml -2643.472 ml medications Current Medications Medications Dose Ordered Sig/Snwo Route Start Time Stop Time Status Last Admin Dose Admin Sodium Chloride 10 ml Q8HR IV 08/14/24 22:00 08/21/24 08:20 10 ML Pantoprazole Sodium 40 mg DAILY IV 08/15/24 10:00 08/21/24 08:55 40 MG Ergocalciferol 50,000 unit Q7D PO 08/15/24 10:00 08/15/24 08:53 50,000 UNIT Dextrose 50 ml UD PRN IV 08/15/24 12:45 Diagnostic Test (Pha) 1 strip Q1HR 08/15/24 20:30 08/21/24 13:22 1 STRIP Midazolam HCl 50 ml @ 1 mls/hr Q24H IV 08/16/24 11:30 08/21/24 11:43 15 MLS/HR Linezolid 300 ml @ 150 mls/hr Q12HR IV 08/16/24 13:00 08/21/24 08:55 150 MLS/HR Dexmedetomidine HCl 400 mcg/ Dextrose 100 ml @ 3.695 mls/ hr Q24H IV 08/17/24 02:45 08/21/24 05:58 11.085 MLS/HR Acetaminophen 650 mg Q8HPRN PRN [place] 08/17/24 04:15 08/19/24 23:31 650 MG Calcitriol 1 mcg EOD IV 08/17/24 10:00 08/21/24 08:56 1 MCG Norepinephrine Bitartrate 250 ml @ 3.75 mls/hr Q24H IV 08/17/24 09:30 08/19/24 11:29 7.5 MLS/HR Iron Sucrose 110 ml @ 110 mls/hr DAILY@1200 IV 08/18/24 12:00 08/22/24 12:59 08/21/24 12:59 110 MLS/HR Rocuronium [place] 1000 mg/ Dextrose 250 ml @ 10.608 mls/ hr [id number] IV 08/18/24 13:30 08/18/24 13:30 10.608 MLS/HR Furosemide 40 mg BIDD IV 08/19/24 18:00 08/20/24 16:47 40 MG Meropenem 50 ml @ 17 mls/hr Q12H IV 08/19/24 17:00 08/21/24 05:30 17 MLS/HR Amino Acids 0 ml @ 0 mls/hr PER PHARMACY IV 08/19/24 14:45 Sodium Chloride 10 ml QSHIFT@10,22 IV 08/19/24 22:00 08/21/24 08:55 10 ML Sodium Acetate 20 meq/Potassium Acetate 40 meq/ Potassium Phosphate 11 meq/ Calcium Gluconate 6.9 meq/Magnesium Sulfate 8 meq/ Multivitamins 10 ml/Amino Acids/ Dextrose 759.3387 ml @ 31 mls/hr [id number] IV 08/20/24 22:00 08/21/24 21:59 08/20/24 22:23 31 MLS/HR Sodium Acetate 50 meq/Potassium Acetate 20 meq/ Potassium Phosphate 11 meq/ Calcium Gluconate 4.65 meq/ Magnesium Sulfate 8 meq/ Multivitamins 10 ml/Chromium/ Copper/Manganese/ Zinc 1 ml/Amino Acids/Dextrose 860.5 ml @ 35 mls/hr [id number] IV 08/21/24 22:00 08/22/24 21:59 Fentanyl Citrate 250 ml @ 2.5 mls/hr Q24H IV 08/21/24 11:00 08/21/24 11:47 42.5 MLS/HR Rocuronium [place] 50 mg Q6HR PRN IV 08/21/24 11:45 Morphine Sulfate 2 mg Q4HPRN PRN IV 08/21/24 11:45 08/21/24 13:44 2 MG Dextrose/Sodium Chloride 1,000 ml @ 75 mls/hr [id number] IV 08/21/24 14:00 Insulin Human (Reg)/Sodium Chloride 100 ml @ 0 mls/hr Q0M IV 08/21/24 14:00 objective Young female Appears critically ill Intubated Sedated On pressors Diffuse anasarca Distended abdomen with dressing Gutierrez catheter Regular rate and rhythm No murmur laboratory and microbiology Laboratory Tests 08/21/24 11:55 Test 08/21/24 11:55 Range/Units Serum Glucose 243 H 74-106 mg/dL Assessment/Plan Acute kidney injury hemodynamic Shock due to pancreatitis Severe triglyceridemia > 2000 on admission Abdominal compartment syndrome s/p decompression 08/18/24 Hyponatremia Hypocalcemia Hypophosphatemia Acute respiratory failure Agree with current management insulin drip Electrolyte replacement diuretic to help manage fluid balances fluids now isotonic will monitor Na and Ca levels RISHI resolving Critically ill with guarded prognosis Critical care time spent 35 minutes Dietary Evaluation Review Comments: 1) Increase TPN to meet at least 75% of estimated needs 2) Advance pt diet when medically feasible to a Low Fat diet 3) Continue current plan of care Expected Outcomes/Goals: 1) Pt diet to advance 2) Pt labs to improve 3) F/U in 2-3 days Plan discussed with: STONE Teague MD Aug 21, 2024 16:05
[2024-08-21 20:32] LABS: Hematocrit 24.8 % (36.0-46.0); Hemoglobin 8.2 g/dL (12.2-16.2); Mean Corpuscular Hemoglobin 28.3 pg (28.0-32.0); Mean Corpuscular Hgb Conc. 33.1 g/dL (32.0-36.0); Mean Corpuscular Volume 85.6 fL (80.0-100.0); Platelet Count (auto) 94 10^3/uL (140-450); Red Cell Distribution Width 15.4 % (11.8-14.3)
[2024-08-21 20:35] LABS: Basophils % (manual) 0 (0.0-2.0); Blast Cells 0; Metamyelocytes % 0; Myelocytes % 0; Promyelocytes % 0; Reactive Lymphocytes 0
[2024-08-21 20:50] LABS: Alanine Aminotransferase 10 U/L (7-40); Albumin 2.9 g/dL (3.2-4.8); Alkaline Phosphatase 61 U/L (46-116); Anion Gap 5 (5-15); Aspartate Aminotransferase 15 U/L (13-40); BUN/Creatinine Ratio 11.8 (10.0-20.0); Blood Urea Nitrogen 20 mg/dL (9-23); Calcium 8.4 mg/dL (8.7-10.4); Carbon Dioxide 27 mmol/L (20-31); Chloride 101 mmol/L (98-107); Glucose 175 mg/dL (74-106); Magnesium 1.8 mg/dL (1.6-2.6); Potassium 4.6 mmol/L (3.5-5.1); Sodium 133 mmol/L (136-145)
[2024-08-21 20:51] LABS: Phosphorus 3.6 mg/dL (2.4-5.1)
[2024-08-21 20:52] LABS: Bilirubin, Total 0.8 mg/dL (0.2-1.0); Total Protein 5.3 g/dL (5.7-8.2)
[2024-08-21] MEDS: TPN PER PHARMACY IV NR (21:52)
[2024-08-21 22:17] LABS: Anisocytosis Slight; Band Neutrophils % (manual) 9; Eosinophils % (manual) 1 (0-7); Lymphocytes % (manual) 4 (10.0-50.0); Monocytes % (manual) 8 (0-12); Platelet Estimate Decreased; Stomatocytes Few
[2024-08-22] VITALS (109 sets, daily range): BP systolic 106–179; BP diastolic 50–101; PULSE 89–144; RESP 13–38; TEMP 96.6–102; O2SAT 67–100
[2024-08-22 04:00] LABS: Albumin 2.9 g/dL (3.2-4.8); Alkaline Phosphatase 57 U/L (46-116); Anion Gap 8 (5-15); Aspartate Aminotransferase 21 U/L (13-40); Blood Urea Nitrogen 18 mg/dL (9-23); Calcium 8.4 mg/dL (8.7-10.4); Carbon Dioxide 24 mmol/L (20-31); Chloride 101 mmol/L (98-107); Glucose 152 mg/dL (74-106); Magnesium 1.8 mg/dL (1.6-2.6); Potassium 4.5 mmol/L (3.5-5.1); Sodium 133 mmol/L (136-145)
[2024-08-22 04:01] LABS: Bilirubin, Total 0.8 mg/dL (0.2-1.0); Phosphorus 3.3 mg/dL (2.4-5.1)
[2024-08-22 04:11] LABS: Hemoglobin 7.8 g/dL (12.2-16.2); White Blood Cell 15.8 10^3/uL (4.4-10.8)
[2024-08-22 04:13] LABS: Hematocrit 23.9 % (36.0-46.0); Mean Corpuscular Hemoglobin 28.5 pg (28.0-32.0); Mean Corpuscular Hgb Conc. 32.6 g/dL (32.0-36.0); Mean Corpuscular Volume 87.3 fL (80.0-100.0); Platelet Count (auto) 113 10^3/uL (140-450); Red Blood Cells 2.74 10^6/uL (4.0-5.20); Red Cell Distribution Width 15.8 % (11.8-14.3)
[2024-08-22 04:21] LABS: Alanine Aminotransferase < 9 U/L (7-40)
[2024-08-22 04:23] LABS: Basophils % (manual) 0 (0.0-2.0); Blast Cells 0; Metamyelocytes % 0; Myelocytes % 0; Promyelocytes % 0; Reactive Lymphocytes 0
--- NOTE | 2024-08-22 05:44 | DVH ---
CHEST RADIOGRAPH Indication:on vent Technique: Single frontal view of the chest was obtained COMPARISON: XY CHEST XRAY 1 VIEW on DOS: 08/21/24, XY CHEST XRAY 1 VIEW on DOS: 08/20/24, XY CHEST PO RTABLE on DOS: 08/19/24, XY CHEST XRAY 1 VIEW on DOS: 08/20/24 FINDINGS: Lines and Tubes: Endotracheal tube and enteric catheter in satisfactory position. Right central venou s catheter in satisfactory position. Lungs: Multifocal airspace disease. Pleura: No effusion. No pneumothorax. Cardiomediastinal contours: Unremarkable Bones: Unremarkable IMPRESSION: Lines and tubes in satisfactory position. Unchanged multifocal airspace disease.
[2024-08-22 05:57] LABS: Band Neutrophils % (manual) 7; Eosinophils % (manual) 1 (0-7); Lymphocytes % (manual) 9 (10.0-50.0); Monocytes % (manual) 7 (0-12); Platelet Estimate Decreased
[2024-08-22 05:58] LABS: Anisocytosis Slight
[2024-08-22] MEDS: ROCURONIUM 10MG/ML 10ML VIAL IV PRN (08:01)
--- NOTE | 2024-08-22 09:05 | DVHPNRES ---
Progress Note Date Seen: Aug 22, 2024 Resident Creating Document: FRANCIS JONES RESIDENT Has the PT tested + for MRSA If YES, has PT been informed?: No Medical Necessity Reason Pt with a Central, PICC or Fol: Yes The following are medically ne: Central Line, Gutierrez Catheter Reason for gutierrez catheter: Strict I&O Subjective Review of Systems Hospital course: Alejandra Ang, a 34-year-old female with a history of hyperlipidemia (HLD) but no significant past medical history, presented to the emergency department with severe epigastric pain rated 10/10, which began this morning. She reported having watery diarrhea since eating pizza yesterday, and today developed crampy pain spreading throughout her abdomen, along with nausea, vomiting, and chills. She denies fever, chest pain, shortness of breath, fatigue, and weakness. family history positive for hypertriglyceridemia in paternal side With father affected. Alejandra lives with a roommate, occasionally drinks alcohol, but denies smoking and drug abuse. She has no past surgical or family history and no recent travel or sick contacts. Poor historian but she Noted previous extensive skin rash/ allergy to fenofibrate and presently on atorvastatin 40 mg daily only. toxicology unremarkable, UA negative, ABG shows signs of anion gap metabolic acidosis appropriately compensate d by tachypnea and tachycardia. Patient is decided to transferred to ICU for higher level of care and close monitoring. Patient seen and examined in ICU department. Patient underwent re-exploration of abdomen for compartment syndrome. Patient continued to be on ventilator and sedated. Patient is on higher level of fentanyl 400 mics per hour, patient is still continued to be having grimaces on palpation of abdomen. Increase fentanyl to 450 mph. We will continue with current pain management . Continue with insulin drip at 1 unit /hr and D 10 W. No episode of hypoglycemia. no other complaints from date night sitter. Objective vital signs Vital Sign Date Time Temp Pulse Resp B/P (MAP) Pulse Ox O2 Delivery O2 Flow Rate FiO2 08/22/24 08:04 114 22 151/78 (102) 100 30 08/22/24 06:30 99.3 210.7 08/22/24 06:00 Mechanical Ventilator+ Total Intake and Output 08/21/24 08/21/24 08/22/24 15:00 23:00 07:00 Intake Total 2106.964 ml 1691.464 ml 1337.531 ml Output Total 3200 ml 2460 ml Balance 2106.964 ml -1508.536 ml -1122.469 ml medications Current Medications Medications Dose Ordered Sig/Snow Route Start Time Stop Time Status Last Admin Dose Admin Sodium Chloride 10 ml Q8HR IV 08/14/24 22:00 08/22/24 06:04 10 ML Pantoprazole Sodium 40 mg DAILY IV 08/15/24 10:00 08/22/24 07:57 40 MG Ergocalciferol 50,000 unit Q7D PO 08/15/24 10:00 08/15/24 08:53 50,000 UNIT Dextrose 50 ml UD PRN IV 08/15/24 12:45 Diagnostic Test (Pha) 1 strip Q1HR 08/15/24 20:30 08/22/24 07:56 1 STRIP Midazolam HCl 50 ml @ 1 mls/hr Q24H IV 08/16/24 11:30 08/22/24 07:58 15 MLS/HR Linezolid 300 ml @ 150 mls/hr Q12HR IV 08/16/24 13:00 08/22/24 07:58 150 MLS/HR Dexmedetomidine HCl 400 mcg/ Dextrose 100 ml @ 3.695 mls/ hr Q24H IV 08/17/24 02:45 08/21/24 23:06 12.933 MLS/HR Acetaminophen 650 mg Q8HPRN PRN [place] 08/17/24 04:15 08/22/24 03:49 650 MG Calcitriol 1 mcg EOD IV 08/17/24 10:00 08/21/24 08:56 1 MCG Norepinephrine Bitartrate 250 ml @ 3.75 mls/hr Q24H IV 08/17/24 09:30 08/19/24 11:29 7.5 MLS/HR Iron Sucrose 110 ml @ 110 mls/hr DAILY@1200 IV 08/18/24 12:00 08/22/24 12:59 08/21/24 12:59 110 MLS/HR Rocuronium [place] 1000 mg/ Dextrose 250 ml @ 10.608 mls/ hr [id number] IV 08/18/24 13:30 08/18/24 13:30 10.608 MLS/HR Furosemide 40 mg BIDD IV 08/19/24 18:00 08/22/24 06:04 40 MG Meropenem 50 ml @ 17 mls/hr Q12H IV 08/19/24 17:00 08/22/24 04:41 17 MLS/HR Amino Acids 0 ml @ 0 mls/hr PER PHARMACY IV 08/19/24 14:45 Sodium Chloride 10 ml QSHIFT@10,22 IV 08/19/24 22:00 08/22/24 07:57 10 ML Sodium Acetate 50 meq/Potassium Acetate 20 meq/ Potassium Phosphate 11 meq/ Calcium Gluconate 4.65 meq/ Magnesium Sulfate 8 meq/ Multivitamins 10 ml/Chromium/ Copper/Manganese/ Zinc 1 ml/Amino Acids/Dextrose 860.5 ml @ 35 mls/hr [id number] IV 08/21/24 22:00 08/22/24 21:59 08/21/24 21:52 35 MLS/HR Fentanyl Citrate 250 ml @ 2.5 mls/hr Q24H IV 08/21/24 11:00 08/22/24 04:04 45 MLS/HR Rocuronium [place] 50 mg Q6HR PRN IV 08/21/24 11:45 08/22/24 08:01 50 MG Morphine Sulfate 2 mg Q4HPRN PRN IV 08/21/24 11:45 08/22/24 08:00 2 MG Dextrose/Sodium Chloride 1,000 ml @ 75 mls/hr [id number] IV 08/21/24 14:00 08/22/24 04:06 75 MLS/HR Insulin Human (Reg)/Sodium Chloride 100 ml 1945 IV 08/21/24 19:45 UNV Insulin Human (Reg)/Sodium Chloride 100 ml @ 1 mls/hr Q24H IV 08/21/24 19:52 08/21/24 14:00 1 MLS/HR Examination General Appearance: BELLO S - 3, sedated and mechanical ventilation Head Exam: Normal inspection Neck Exam: Normal inspection. Non-tender. Normal alignment Pulmonary/Respiratory: Chest non-tender. Clear bilateral breath sounds Cardiovascular/Chest: Regular rate and rhythm. No murmurs. No JVD. Peripheral Pulses: 2+ Radial (R). 2+ Radial (L). 2+ Pedal (R). 2+ Pedal (L) Abdominal Exam: Presence of dressing with open abdominal compartment given underwent exploratory laparotomy. Presence of wound VAC. abdomen distended. Ankle Exam: Negative ankle edema Lower extremities: Negative lower extremity edema Neuro/Mental Status: Sedated. laboratory and microbiology Laboratory Tests 08/22/24 03:22 Test 08/22/24 03:22 Range/Units Serum Glucose 152 H 74-106 mg/dL Microbiology Date/Time Source Procedure Growth Status 08/16/24 11:57 Sputum Gram Stain - Final Complete 08/16/24 11:57 Respiratory Culture - Final Beta Strep Non-A, Non-B Complete 08/16/24 01:00 Urine - Midstream Clean Catch Urine Culture - Final Complete 08/15/24 13:32 Nose MRSA Screen - Final Complete 08/15/24 10:33 Blood Blood Culture - Final NO GROWTH AFTER 5 DAYS OF INCUBATION. Complete Problem List/Assessment/Plan Problem List/Assessment/Plan Acute pancreatitis likely due to severe hypertriglyceridemia -currently on insulin 0.5 units/hour, non titratable -continue check trend of triglyceride q.12: Last triglyceride 422 -continue check trend of blood glucose Q 1 hour: Target blood glucose level (90-180 mg/dL). Stopped insulin drip if blood sugar less than 90. -continue D5W 75 mL/hour -NPO -abdomen/pelvis CT(08/16/24): Acute pancreatitis, no evidence of necrosis or pseudocyst. -monitor potassium level q.6: Target potassium greater than 4.5. Received 40 mEq of potassium. -currently on antibiotic meropenem and linezolid. -serum alcohol less than three, chest ultrasound: No cholelithiasis. -IV albumin 25 g Q eight given 3rd spacing of IV fluids as needed. -stop insulin when triglyceride level at 500. Abdominal compartment syndrome status post decompression -status post decompressive laparotomy (08/18/2024) -re exploratory irrigation of abdomen on 08/20/2024 -drainage via wound VAC as per surgery -continue to monitor intra-abdominal pressure -continue IV antibiotic -plan for re-evaluation in 2-3 days. Acute hypercapnic/hypoxic respiratory failure due to above -on mechanical ventilation: Respiratory rate 22, tidal volume 450, FiO2 30%, peep f5 -CT chest: Bilateral pleural effusions with bibasilar atelectasis and consolidation. IV lasix 40 mg daily -IV antibiotic with meropenem and linezolid. Severe anemia -received 4 units of PRBCs. -repeat H&H Q 8 hour. -replete if hemoglobin less than seven. Familial hypertriglyceridemia -continue current management of acute pancreatitis. Anion gap metabolic acidosis due to lactic acidosis: Resolved -continue with IV fluids. Moderate ascites -IR consultation for paracentesis Bilateral pleural effusion -Lasix 40 mg IV daily -continue to monitor electrolytes including potassium q.4. Sirs due to acute pancreatitis, no sepsis -continue current management of acute pancreatitis hyponatremia improving -continue monitor Q eight HR Severe Hypocalcemia -calcitriol and IV calcium per Nephrology Hypophosphatemia -repeat phosphorus level p.r.n. Hypomagnesemia -repeat magnesium level in a.m.. PUD prophylaxis: Protonix DVT prophylaxis: Enoxaparin Lines: Right IJ central line inserted on 08/16/2024 Right femoral a line inserted on 08/16/2024: Removed Intubated on 08/16/2024 PICC line on 08/19/24 Gutierrez catheter G-tube Goals of care, full code discussed greater than 24 minutes Critical care time spent greater than 84 minutes. Discussed with family as well. Plan discussed with Dr Bang Plan discussed with: Other (Father) My Orders My Orders Orders - FRANCIS JONES RESIDENT Procedure Category Date Status Time D5w/Sod Chlo 0.9% PHA 08/21/24 In Process (D5w Ns 0.9%) 14:00 Dietary Evaluation Review Comments: 1) Increase TPN to meet at least 75% of estimated needs 2) Advance pt diet when medically feasible to a Low Fat diet 3) Continue current plan of care Expected Outcomes/Goals: 1) Pt diet to advance 2) Pt labs to improve 3) F/U in 2-3 days Date of Service: Aug 22, 2024 Billing Provider: DARWIN BANG MD Common Visit Codes: 94929-[id number] CARE 30-74 MIN FRANCIS JONES Aug 22, 2024 09:05 DARWIN BANG MD Aug 22, 2024 22:59
--- NOTE | 2024-08-22 09:14 | DVHPN2 ---
Progress Note Date Seen: Aug 22, 2024 Has the PT tested + for MRSA If YES, has PT been informed?: No Medical Necessity Reason Pt with a Central, PICC or Fol: Yes The following are medically ne: Central Line, Gutierrez Catheter Reason for gutierrez catheter: Strict I&O Objective vital signs Vital Sign Date Time Temp Pulse Resp B/P (MAP) Pulse Ox O2 Delivery O2 Flow Rate FiO2 08/22/24 08:04 114 22 151/78 (102) 100 30 08/22/24 06:30 99.3 210.7 08/22/24 06:00 Mechanical Ventilator+ Total Intake and Output 08/21/24 08/21/24 08/22/24 15:00 23:00 07:00 Intake Total 2106.964 ml 1691.464 ml 1337.531 ml Output Total 3200 ml 2460 ml Balance 2106.964 ml -1508.536 ml -1122.469 ml medications Current Medications Medications Dose Ordered Sig/Snow Route Start Time Stop Time Status Last Admin Dose Admin Sodium Chloride 10 ml Q8HR IV 08/14/24 22:00 08/22/24 06:04 10 ML Pantoprazole Sodium 40 mg DAILY IV 08/15/24 10:00 08/22/24 07:57 40 MG Ergocalciferol 50,000 unit Q7D PO 08/15/24 10:00 08/15/24 08:53 50,000 UNIT Dextrose 50 ml UD PRN IV 08/15/24 12:45 Diagnostic Test (Pha) 1 strip Q1HR 08/15/24 20:30 08/22/24 07:56 1 STRIP Midazolam HCl 50 ml @ 1 mls/hr Q24H IV 08/16/24 11:30 08/22/24 07:58 15 MLS/HR Linezolid 300 ml @ 150 mls/hr Q12HR IV 08/16/24 13:00 08/22/24 07:58 150 MLS/HR Dexmedetomidine HCl 400 mcg/ Dextrose 100 ml @ 3.695 mls/ hr Q24H IV 08/17/24 02:45 08/22/24 09:07 12.933 MLS/HR Acetaminophen 650 mg Q8HPRN PRN [place] 08/17/24 04:15 08/22/24 03:49 650 MG Calcitriol 1 mcg EOD IV 08/17/24 10:00 08/21/24 08:56 1 MCG Norepinephrine Bitartrate 250 ml @ 3.75 mls/hr Q24H IV 08/17/24 09:30 08/19/24 11:29 7.5 MLS/HR Iron Sucrose 110 ml @ 110 mls/hr DAILY@1200 IV 08/18/24 12:00 08/22/24 12:59 08/21/24 12:59 110 MLS/HR Rocuronium [place] 1000 mg/ Dextrose 250 ml @ 10.608 mls/ hr [id number] IV 08/18/24 13:30 08/18/24 13:30 10.608 MLS/HR Furosemide 40 mg BIDD IV 08/19/24 18:00 08/22/24 06:04 40 MG Meropenem 50 ml @ 17 mls/hr Q12H IV 08/19/24 17:00 08/22/24 04:41 17 MLS/HR Amino Acids 0 ml @ 0 mls/hr PER PHARMACY IV 08/19/24 14:45 Sodium Chloride 10 ml QSHIFT@10,22 IV 08/19/24 22:00 08/22/24 07:57 10 ML Sodium Acetate 50 meq/Potassium Acetate 20 meq/ Potassium Phosphate 11 meq/ Calcium Gluconate 4.65 meq/ Magnesium Sulfate 8 meq/ Multivitamins 10 ml/Chromium/ Copper/Manganese/ Zinc 1 ml/Amino Acids/Dextrose 860.5 ml @ 35 mls/hr [id number] IV 08/21/24 22:00 08/22/24 21:59 08/21/24 21:52 35 MLS/HR Fentanyl Citrate 250 ml @ 2.5 mls/hr Q24H IV 08/21/24 11:00 08/22/24 04:04 45 MLS/HR Rocuronium [place] 50 mg Q6HR PRN IV 08/21/24 11:45 08/22/24 08:01 50 MG Morphine Sulfate 2 mg Q4HPRN PRN IV 08/21/24 11:45 08/22/24 08:00 2 MG Dextrose/Sodium Chloride 1,000 ml @ 75 mls/hr [id number] IV 08/21/24 14:00 08/22/24 04:06 75 MLS/HR Insulin Human (Reg)/Sodium Chloride 100 ml 1945 IV 08/21/24 19:45 UNV Insulin Human (Reg)/Sodium Chloride 100 ml @ 1 mls/hr Q24H IV 08/21/24 19:52 08/21/24 14:00 1 MLS/HR Sodium Acetate 40 meq/Potassium Acetate 20 meq/ Potassium Phosphate 11 meq/ Calcium Gluconate 2.3 meq/Magnesium Sulfate 12 meq/ Multivitamins 10 ml/Chromium/ Copper/Manganese/ Zinc 1 ml/Amino Acids/Dextrose 951.4462 ml @ 39 mls/hr [id number] IV 08/22/24 22:00 08/23/24 21:59 laboratory and microbiology Laboratory Tests 08/22/24 03:22 Test 08/22/24 03:22 Range/Units Serum Glucose 152 H 74-106 mg/dL Problem List/Assessment/Plan Problem List/Assessment/Plan 08/19/24 ABDOMINAL PRESXURE IMPROVED, DRESSING DRY, SEROUS DRAINAGE, WILL TAKE TO O.R. MONDAY TO LAVAGE AND RE DRESS, POSSIBLY PLACE FASCIAL SUTURES 08/22/24 ABDOMEN LESS TENSE, DRESSING APPLIED, WILL CONSIDER CLOSURE OF ABDOMEN SOON. Plan discussed with: Other Dietary Evaluation Review Comments: 1) Increase TPN to meet at least 75% of estimated needs 2) Advance pt diet when medically feasible to a Low Fat diet 3) Continue current plan of care Expected Outcomes/Goals: 1) Pt diet to advance 2) Pt labs to improve 3) F/U in 2-3 days MARILYN OJEDA MD Aug 22, 2024 09:14
[2024-08-22] MEDS: INSULIN DRIP 100 UNIT/100ML 100 ML IV SCH (10:00)
[2024-08-22] MEDS: ACCU-CHEK COMFORT CURVE STRIP VI SCH (10:00)
[2024-08-22 12:10] LABS: Bilirubin, Total 0.6 mg/dL (0.2-1.0)
[2024-08-22] MEDS: MORPHINE SULFATE INJ 2 MG/ml SYRG ONE (12:32)
[2024-08-22] MEDS: fentaNYL Drip 2500mCg/250mlNS 250 ML IV SCH (12:38)
[2024-08-22 12:49] LABS: Basophils # (auto) 0 10 ^3/uL (0-0.2); Eosinophils # (auto) 0.1 10 ^3/uL (0-0.8); Lymphocytes % (auto) 6.7 % (10.0-50.0); Platelet Count (auto) 126 10^3/uL (140-450); White Blood Cell 15.7 10^3/uL (4.4-10.8)
[2024-08-22 12:50] LABS: Basophils % (auto) 0.2 % (0.0-2.0); Eosinophils % (auto) 0.7 % (0.0-7.0); Hematocrit 21.7 % (36.0-46.0); Hemoglobin 7.3 g/dL (12.2-16.2); Mean Corpuscular Hemoglobin 28.8 pg (28.0-32.0); Mean Corpuscular Hgb Conc. 33.7 g/dL (32.0-36.0); Mean Corpuscular Volume 85.5 fL (80.0-100.0); Monocytes # (auto) 0.7 10 ^3/uL (0-1.3); Monocytes % (auto) 4.4 % (0.0-12.0); Neutrophils # (auto) 13.8 10 ^3/uL (1.6-8.6); Red Blood Cells 2.54 10^6/uL (4.0-5.20); Red Cell Distribution Width 15.1 % (11.8-14.3)
[2024-08-22 13:08] LABS: Albumin 2.4 g/dL (3.2-4.8); Alkaline Phosphatase 55 U/L (46-116); Anion Gap 5 (5-15); Aspartate Aminotransferase 22 U/L (13-40); BUN/Creatinine Ratio 17.3 (10.0-20.0); Bilirubin, Total 0.6 mg/dL (0.2-1.0); Blood Urea Nitrogen 23 mg/dL (9-23); Carbon Dioxide 30 mmol/L (20-31); Chloride 101 mmol/L (98-107); Glucose 171 mg/dL (74-106); Magnesium 1.7 mg/dL (1.6-2.6); Phosphorus 4.7 mg/dL (2.4-5.1); Potassium 4.3 mmol/L (3.5-5.1); Sodium 136 mmol/L (136-145); Total Protein 4.2 g/dL (5.7-8.2)
[2024-08-22 13:09] LABS: Alanine Aminotransferase 9 U/L (7-40)
[2024-08-22] MEDS: MORPHINE SULFATE INJ 2 MG/ml SYRG IV SCH (13:48)
[2024-08-22] MEDS: D5W/SOD CHLO 0.9% 1,000 ML IV SCH ×2 (15:00→19:23)
--- NOTE | 2024-08-22 15:59 | DVHPN2 ---
Progress Note - Dictate Date Seen: Aug 22, 2024 Has the PT tested + for MRSA If YES, has PT been informed?: No Medical Necessity Reason Pt with a Central, PICC or Fol: Yes The following are medically ne: Central Line, Gutierrez Catheter Reason for gutierrez catheter: Strict I&O Subjective Fluid balance approximately even Patient remains intubated in ICU Triglyceride level down trending vital signs Vital Sign Date Time Temp Pulse Resp B/P (MAP) Pulse Ox O2 Delivery O2 Flow Rate FiO2 08/22/24 15:31 127 24 147/83 (104) 100 30 08/22/24 14:30 100.4 212.7 08/22/24 14:00 Mechanical Ventilator+ Total Intake and Output 08/21/24 08/21/24 08/22/24 15:00 23:00 07:00 Intake Total 2106.964 ml 1691.464 ml 1521.464 ml Output Total 3200 ml 2460 ml Balance 2106.964 ml -1508.536 ml -938.536 ml medications Current Medications Medications Dose Ordered Sig/Snow Route Start Time Stop Time Status Last Admin Dose Admin Sodium Chloride 10 ml Q8HR IV 08/14/24 22:00 08/22/24 13:50 10 ML Pantoprazole Sodium 40 mg DAILY IV 08/15/24 10:00 08/22/24 07:57 40 MG Ergocalciferol 50,000 unit Q7D PO 08/15/24 10:00 08/15/24 08:53 50,000 UNIT Dextrose 50 ml UD PRN IV 08/15/24 12:45 Midazolam HCl 50 ml @ 1 mls/hr Q24H IV 08/16/24 11:30 08/22/24 14:03 15 MLS/HR Linezolid 300 ml @ 150 mls/hr Q12HR IV 08/16/24 13:00 08/22/24 07:58 150 MLS/HR Dexmedetomidine HCl 400 mcg/ Dextrose 100 ml @ 3.695 mls/ hr Q24H IV 08/17/24 02:45 08/22/24 09:07 12.933 MLS/HR Acetaminophen [address] 08/17/24 04:15 08/22/24 14:10 650 MG Calcitriol 1 mcg EOD IV 08/17/24 10:00 08/21/24 08:56 1 MCG Norepinephrine Bitartrate 250 ml @ 3.75 mls/hr Q24H IV 08/17/24 09:30 08/19/24 11:29 7.5 MLS/HR Rocuronium [place] 1000 mg/ Dextrose 250 ml @ 10.608 mls/ hr [id number] IV 08/18/24 13:30 08/18/24 13:30 10.608 MLS/HR Meropenem 50 ml @ 17 mls/hr Q12H IV 08/19/24 17:00 08/22/24 04:41 17 MLS/HR Amino Acids 0 ml @ 0 mls/hr PER PHARMACY IV 08/19/24 14:45 Sodium Chloride 10 ml QSHIFT@ IV 08/19/24 22:00 08/22/24 07:57 10 ML Sodium Acetate 50 meq/Potassium Acetate 20 meq/ Potassium Phosphate 11 meq/ Calcium Gluconate 4.65 meq/ Magnesium Sulfate 8 meq/ Multivitamins 10 ml/Chromium/ Copper/Manganese/ Zinc 1 ml/Amino Acids/Dextrose 860.5 ml @ 35 mls/hr [id number] IV 08/21/24 22:00 08/22/24 21:59 08/21/24 21:52 35 MLS/HR Rocuronium [place] 50 mg Q6HR PRN IV 08/21/24 11:45 08/22/24 14:07 50 MG Insulin Human (Reg)/Sodium Chloride 100 ml 1945 IV 08/21/24 19:45 UNV Sodium Acetate 40 meq/Potassium Acetate 20 meq/ Potassium Phosphate 11 meq/ Calcium Gluconate 2.3 meq/Magnesium Sulfate 12 meq/ Multivitamins 10 ml/Chromium/ Copper/Manganese/ Zinc 1 ml/Amino Acids/Dextrose 951.4462 ml @ 39 mls/hr [id number] IV 08/22/24 22:00 08/23/24 21:59 Diagnostic Test (Pha) 1 strip Q2HR 08/22/24 10:00 08/22/24 13:53 1 STRIP Insulin Human (Reg)/Sodium Chloride 100 ml @ 0.5 mls/hr Q24H IV 08/22/24 09:30 08/22/24 10:00 0.5 MLS/HR Furosemide 40 mg DAILY IV 08/23/24 10:00 Morphine Sulfate 2 mg Q4HR IV 08/22/24 14:00 08/22/24 13:48 2 MG Fentanyl Citrate 250 ml @ 2.5 mls/hr Q24H IV 08/22/24 12:15 08/22/24 14:06 50 MLS/HR Dextrose/Sodium Chloride 1,000 ml @ 50 mls/hr Q20H IV 08/22/24 15:00 objective Young female Appears critically ill Intubated Sedated On pressors Diffuse anasarca Distended abdomen with dressing Gutierrez catheter Regular rate and rhythm No murmur laboratory and microbiology Laboratory Tests 08/22/24 12:35 Test 08/22/24 12:35 Range/Units Serum Glucose 171 H 74-106 mg/dL Assessment/Plan Acute kidney injury hemodynamic Shock due to pancreatitis Severe triglyceridemia > 2000 on admission Abdominal compartment syndrome s/p decompression 08/18/24 Hyponatremia Hypocalcemia Hypophosphatemia Acute respiratory failure Triglycerides down trending Electrolyte replacement diuretic to help manage fluid balances. We will modify dose to prevent fluid overload fluids now isotonic will monitor Na and Ca levels RISHI resolving Surgery plans possible abdominal closure in the near future Critically ill with guarded prognosis Critical care time spent 35 minutes Dietary Evaluation Review Comments: 1) Increase TPN to meet at least 75% of estimated needs 2) Advance pt diet when medically feasible to a Low Fat diet 3) Continue current plan of care Expected Outcomes/Goals: 1) Pt diet to advance 2) Pt labs to improve 3) F/U in 2-3 days Plan discussed with: Other STONE SPARKS MD Aug 22, 2024 15:59
[2024-08-22 20:39] LABS: Hematocrit 23.7 % (36.0-46.0); Hemoglobin 7.8 g/dL (12.2-16.2); Mean Corpuscular Hemoglobin 28.2 pg (28.0-32.0); Mean Corpuscular Hgb Conc. 32.9 g/dL (32.0-36.0); Mean Corpuscular Volume 85.6 fL (80.0-100.0); Platelet Count (auto) 140 10^3/uL (140-450); Red Blood Cells 2.77 10^6/uL (4.0-5.20); Red Cell Distribution Width 15.1 % (11.8-14.3); White Blood Cell 15.8 10^3/uL (4.4-10.8)
[2024-08-22 20:46] LABS: Basophils % (manual) 0 (0.0-2.0); Blast Cells 0; Eosinophils % (manual) 0 (0-7); Metamyelocytes % 0; Myelocytes % 0; Promyelocytes % 0; Reactive Lymphocytes 0
[2024-08-22 20:59] LABS: Albumin 2.8 g/dL (3.2-4.8); Alkaline Phosphatase 57 U/L (46-116); Anion Gap 6 (5-15); Aspartate Aminotransferase 25 U/L (13-40); BUN/Creatinine Ratio 16.8 (10.0-20.0); Blood Urea Nitrogen 21 mg/dL (9-23); Calcium 8.6 mg/dL (8.7-10.4); Carbon Dioxide 29 mmol/L (20-31); Chloride 100 mmol/L (98-107); Glucose 127 mg/dL (74-106); Magnesium 1.7 mg/dL (1.6-2.6); Potassium 4.6 mmol/L (3.5-5.1); Sodium 135 mmol/L (136-145)
[2024-08-22 21:00] LABS: Bilirubin, Total 0.6 mg/dL (0.2-1.0); Phosphorus 4.4 mg/dL (2.4-5.1)
[2024-08-22 21:05] LABS: Alanine Aminotransferase 9 U/L (7-40)
[2024-08-22] MEDS: TPN PER PHARMACY IV NR (21:07)
[2024-08-22 21:42] LABS: Band Neutrophils % (manual) 3; Lymphocytes % (manual) 7 (10.0-50.0); Monocytes % (manual) 7 (0-12); Platelet Estimate Adequate
[2024-08-22] MEDS: MORPHINE SULFATE INJ 2 MG/ml SYRG IV PRN (22:28)
[2024-08-23] VITALS (107 sets, daily range): BP systolic 86–171; BP diastolic 34–97; PULSE 79–141; RESP 10–42; TEMP 97.5–102; O2SAT 82–100
[2024-08-23] MEDS: HYDROmorphone HCL 2 MG/ML VL/or syr IV PRN (02:16)
[2024-08-23 03:46] LABS: Hematocrit 21.7 % (36.0-46.0); Hemoglobin 7.3 g/dL (12.2-16.2); Mean Corpuscular Hgb Conc. 33.6 g/dL (32.0-36.0)
[2024-08-23 03:49] LABS: Mean Corpuscular Volume 86.3 fL (80.0-100.0); Platelet Count (auto) 133 10^3/uL (140-450); Red Blood Cells 2.51 10^6/uL (4.0-5.20); Red Cell Distribution Width 15.1 % (11.8-14.3); White Blood Cell 16.8 10^3/uL (4.4-10.8)
[2024-08-23 03:50] LABS: Basophils % (manual) 0 (0.0-2.0); Blast Cells 0; Eosinophils % (manual) 0 (0-7); Metamyelocytes % 0; Myelocytes % 0; Promyelocytes % 0; Reactive Lymphocytes 0
[2024-08-23 03:53] LABS: Albumin 2.7 g/dL (3.2-4.8); Alkaline Phosphatase 53 U/L (46-116); Anion Gap 5 (5-15); Aspartate Aminotransferase 25 U/L (13-40); BUN/Creatinine Ratio 20.4 (10.0-20.0); Bilirubin, Total 0.6 mg/dL (0.2-1.0); Blood Urea Nitrogen 22 mg/dL (9-23); Calcium 8.4 mg/dL (8.7-10.4); Carbon Dioxide 29 mmol/L (20-31); Chloride 101 mmol/L (98-107); Glucose 132 mg/dL (74-106); Magnesium 1.7 mg/dL (1.6-2.6); Phosphorus 4.1 mg/dL (2.4-5.1); Potassium 4.3 mmol/L (3.5-5.1); Sodium 135 mmol/L (136-145); Total Protein 4.8 g/dL (5.7-8.2)
[2024-08-23 03:59] LABS: Alanine Aminotransferase < 9 U/L (7-40)
[2024-08-23 05:42] LABS: Band Neutrophils % (manual) 11; Lymphocytes % (manual) 13 (10.0-50.0); Monocytes % (manual) 7 (0-12); Platelet Estimate Decreased
[2024-08-23 05:43] LABS: Hypochromia Slight; Stomatocytes Few
--- NOTE | 2024-08-23 05:46 | DVH ---
EXAM: XY CHEST XRAY 1 VIEW Indication:on vent Technique: Single frontal view of the chest was obtained Comparison: XY CHEST XRAY 1 VIEW on DOS: 08/22/24, XY CHEST XRAY 1 VIEW on DOS: 08/21/24, XY CHEST XR AY 1 VIEW on DOS: 08/20/24, XY CHEST PORTABLE on DOS: 08/19/24, XY CHEST XRAY 1 VIEW on DOS: 08/18/24 , XY CHEST XRAY 1 VIEW on DOS: 08/22/24 FINDINGS: Lines and Tubes: Endotracheal tube and enteric catheter in satisfactory position. Right central venou s catheter in satisfactory position. Lungs: Low lung volumes. Pleura: No effusion. No pneumothorax. Cardiomediastinal contours: Unremarkable Bones: Unremarkable IMPRESSION: No significant change compared to prior exam.
[2024-08-23] MEDS: ACETAMINOPHEN IV 1000 MG/100ML (10MG/ML) IV PRN (06:39)
[2024-08-23 08:01] LABS: Base Excess 1.8 mmol/L (-2.0-3.0)
[2024-08-23] MEDS: FUROSEMIDE 40 MG/4 ML VIAL IV SCH (08:17)
--- NOTE | 2024-08-23 10:53 | DVHPN2 ---
Progress Note Date Seen: Aug 23, 2024 Has the PT tested + for MRSA If YES, has PT been informed?: No Medical Necessity Reason Pt with a Central, PICC or Fol: Yes The following are medically ne: Central Line, Gutierrez Catheter Reason for gutierrez catheter: Strict I&O Objective vital signs Vital Sign Date Time Temp Pulse Resp B/P (MAP) Pulse Ox O2 Delivery O2 Flow Rate FiO2 08/23/24 10:30 100.4 115 22 129/71 (90) 99 212.7 08/23/24 10:04 30 08/23/24 09:30 Mechanical Ventilator+ Total Intake and Output 08/22/24 08/22/24 08/23/24 14:59 22:59 06:59 Intake Total 1885.964 ml 1233.464 ml 1839.464 ml Output Total 3710 ml 1630 ml Balance 1885.964 ml -2476.536 ml 209.464 ml medications Current Medications Medications Dose Ordered Sig/Snow Route Start Time Stop Time Status Last Admin Dose Admin Sodium Chloride 10 ml Q8HR IV 08/14/24 22:00 08/23/24 05:55 10 ML Pantoprazole Sodium 40 mg DAILY IV 08/15/24 10:00 08/23/24 08:17 40 MG Ergocalciferol 50,000 unit Q7D PO 08/15/24 10:00 08/15/24 08:53 50,000 UNIT Dextrose 50 ml UD PRN IV 08/15/24 12:45 Midazolam HCl 50 ml @ 1 mls/hr Q24H IV 08/16/24 11:30 08/23/24 08:16 15 MLS/HR Linezolid 300 ml @ 150 mls/hr Q12HR IV 08/16/24 13:00 08/23/24 08:16 150 MLS/HR Dexmedetomidine HCl 400 mcg/ Dextrose 100 ml @ 3.695 mls/ hr Q24H IV 08/17/24 02:45 08/23/24 05:35 12.933 MLS/HR Acetaminophen 650 mg Q8HPRN PRN LA 08/17/24 04:15 08/22/24 14:10 650 MG Calcitriol 1 mcg EOD IV 08/17/24 10:00 08/23/24 08:17 1 MCG Norepinephrine Bitartrate 250 ml @ 3.75 mls/hr Q24H IV 08/17/24 09:30 08/19/24 11:29 7.5 MLS/HR Rocuronium [place] 1000 mg/ Dextrose 250 ml @ 10.608 mls/ hr [id number] IV 08/18/24 13:30 08/18/24 13:30 10.608 MLS/HR Amino Acids 0 ml @ 0 mls/hr PER PHARMACY IV 08/19/24 14:45 Sodium Chloride 10 ml QSHIFT@10,22 IV 08/19/24 22:00 08/23/24 07:26 10 ML Rocuronium [place] 50 mg Q6HR PRN IV 08/21/24 11:45 08/23/24 10:17 50 MG Insulin Human (Reg)/Sodium Chloride 100 ml 1945 IV 08/21/24 19:45 UNV Sodium Acetate 40 meq/Potassium Acetate 20 meq/ Potassium Phosphate 11 meq/ Calcium Gluconate 2.3 meq/Magnesium Sulfate 12 meq/ Multivitamins 10 ml/Chromium/ Copper/Manganese/ Zinc 1 ml/Amino Acids/Dextrose 951.4462 ml @ 39 mls/hr [id number] IV 08/22/24 22:00 08/23/24 21:59 08/22/24 21:07 39 MLS/HR Diagnostic Test (Pha) 1 strip Q2HR 08/22/24 10:00 08/23/24 09:56 1 STRIP Insulin Human (Reg)/Sodium Chloride 100 ml @ 0.5 mls/hr Q24H IV 08/22/24 09:30 08/22/24 21:03 0.5 MLS/HR Furosemide 40 mg DAILY IV 08/23/24 10:00 08/23/24 08:17 40 MG Fentanyl Citrate 250 ml @ 2.5 mls/hr Q24H IV 08/22/24 12:15 08/23/24 08:35 50 MLS/HR Morphine Sulfate 2 mg Q3HPRN PRN IV 08/22/24 21:00 08/23/24 10:17 2 MG Dextrose/Sodium Chloride 1,000 ml @ 75 mls/hr [id number] IV 08/22/24 19:00 08/23/24 08:19 75 MLS/HR Acetaminophen 1,000 mg Q6HPRN PRN IV 08/22/24 23:15 08/23/24 06:39 1,000 MG Hydromorphone HCl 1 mg Q3HPRN PRN IV 08/23/24 01:15 08/23/24 08:18 1 MG Meropenem 50 ml @ 17 mls/hr Q8H IV 08/23/24 13:00 laboratory and microbiology Laboratory Tests 08/23/24 03:11 Test 08/23/24 03:11 Range/Units Serum Glucose 132 H 74-106 mg/dL Problem List/Assessment/Plan Problem List/Assessment/Plan 08/19/24 ABDOMINAL PRESXURE IMPROVED, DRESSING DRY, SEROUS DRAINAGE, WILL TAKE TO O.R. MONDAY TO LAVAGE AND RE DRESS, POSSIBLY PLACE FASCIAL SUTURES 08/22/24 ABDOMEN LESS TENSE, DRESSING APPLIED, WILL CONSIDER CLOSURE OF ABDOMEN SOON. 08/23/24 abdomen still quite tense, leukocytosis, fever, urine output adequate, needs to have abdominal pressure determined q 6 hours(informed nurse), possibly return to OR on Monday to close the abdomen if pressures normal. Plan discussed with: Other Dietary Evaluation Review Comments: 1) Increase TPN to meet at least 75% of estimated needs 2) Advance pt diet when medically feasible to a Low Fat diet 3) Continue current plan of care Expected Outcomes/Goals: 1) Pt diet to advance 2) Pt labs to improve 3) F/U in 2-3 days MARILYN OJEDA MD Aug 23, 2024 10:53
--- NOTE | 2024-08-23 11:38 | DVHPNRES ---
Progress Note Date Seen: Aug 23, 2024 Resident Creating Document: FRANCIS JONES RESIDENT Has the PT tested + for MRSA If YES, has PT been informed?: No Medical Necessity Reason Pt with a Central, PICC or Fol: Yes The following are medically ne: Central Line, Gutierrez Catheter Reason for gutierrez catheter: Strict I&O Subjective Review of Systems Hospital course: Alejandra Ang, a 34-year-old female with a history of hyperlipidemia (HLD) but no significant past medical history, presented to the emergency department with severe epigastric pain rated 10/10, which began this morning. She reported having watery diarrhea since eating pizza yesterday, and today developed crampy pain spreading throughout her abdomen, along with nausea, vomiting, and chills. She denies fever, chest pain, shortness of breath, fatigue, and weakness. family history positive for hypertriglyceridemia in paternal side With father affected. Alejandra lives with a roommate, occasionally drinks alcohol, but denies smoking and drug abuse. She has no past surgical or family history and no recent travel or sick contacts. Poor historian but she Noted previous extensive skin rash/ allergy to fenofibrate and presently on atorvastatin 40 mg daily only. toxicology unremarkable, UA negative, ABG shows signs of anion gap metabolic acidosis appropriately compensate d by tachypnea and tachycardia. Patient is decided to transferred to ICU for higher level of care and close monitoring. Patient seen and examined in ICU department. Patient underwent re-exploration of abdomen for compartment syndrome. Patient continued to be on ventilator and sedated. Patient is on higher level of. patient is still continued to be having grimaces of face on palpation of abdomen. We will continue with current pain management . Continue with insulin drip at 0.5 unit /hr and D51/2 NS 75 ml per hour. . No episode of hypoglycemia. 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 Possible for re surgery to close abdomen on monday. 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 Objective vital signs Vital Sign Date Time Temp Pulse Resp B/P (MAP) Pulse Ox O2 Delivery O2 Flow Rate FiO2 08/23/24 10:51 109 23 151/72 08/23/24 10:30 100.4 99 212.7 08/23/24 10:04 30 08/23/24 09:30 Mechanical Ventilator+ Total Intake and Output 08/22/24 08/22/2408/23/24 15:00 23:00 07:00 Intake Total 1815.464 ml 1312.464 ml 1839.464 ml Output Total 3710 ml 1630 ml Balance 1815.464 ml -2397.536 ml 209.464 ml medications Current Medications Medications Dose Ordered Sig/Snow Route Start Time Stop Time Status Last Admin Dose Admin Sodium Chloride 10 ml Q8HR IV 08/14/24 22:00 08/23/24 05:55 10 ML Pantoprazole Sodium 40 mg DAILY IV 08/15/24 10:00 08/23/24 08:17 40 MG Ergocalciferol 50,000 unit Q7D PO 08/15/24 10:00 08/15/24 08:53 50,000 UNIT Dextrose 50 ml UD PRN IV 08/15/24 12:45 Midazolam HCl 50 ml @ 1 mls/hr Q24H IV 08/16/24 11:30 08/23/24 11:25 15 MLS/HR Linezolid 300 ml @ 150 mls/hr Q12HR IV 08/16/24 13:00 08/23/24 08:16 150 MLS/HR Dexmedetomidine HCl 400 mcg/ Dextrose 100 ml @ 3.695 mls/ hr Q24H IV 08/17/24 02:45 08/23/24 05:35 12.933 MLS/HR Acetaminophen 650 mg Q8HPRN PRN IN 08/17/24 04:15 08/22/24 14:10 650 MG Calcitriol 1 mcg EOD IV 08/17/24 10:00 08/23/24 08:17 1 MCG Norepinephrine Bitartrate 250 ml @ 3.75 mls/hr Q24H IV 08/17/24 09:30 08/19/24 11:29 7.5 MLS/HR Rocuronium [place] 1000 mg/ Dextrose 250 ml @ 10.608 mls/ hr [id number] IV 08/18/24 13:30 08/18/24 13:30 10.608 MLS/HR Amino Acids 0 ml @ 0 mls/hr PER PHARMACY IV 08/19/24 14:45 Sodium Chloride 10 ml QSHIFT@ IV 08/19/24 22:00 08/23/24 07:26 10 ML Rocuronium [place] 50 mg Q6HR PRN IV 08/21/24 11:45 08/23/24 10:17 50 MG Insulin Human (Reg)/Sodium Chloride 100 ml 1945 IV 08/21/24 19:45 UNV Sodium Acetate 40 meq/Potassium Acetate 20 meq/ Potassium Phosphate 11 meq/ Calcium Gluconate 2.3 meq/Magnesium Sulfate 12 meq/ Multivitamins 10 ml/Chromium/ Copper/Manganese/ Zinc 1 ml/Amino Acids/Dextrose 951.4462 ml @ 39 mls/hr [id number] IV 08/22/24 22:00 08/23/24 21:59 08/22/24 21:07 39 MLS/HR Diagnostic Test (Pha) 1 strip Q2HR 08/22/24 10:00 08/23/24 09:56 1 STRIP Insulin Human (Reg)/Sodium Chloride 100 ml @ 0.5 mls/hr Q24H IV 08/22/24 09:30 08/22/24 21:03 0.5 MLS/HR Furosemide 40 mg DAILY IV 08/23/24 10:00 08/23/24 08:17 40 MG Fentanyl Citrate 250 ml @ 2.5 mls/hr Q24H IV 08/22/24 12:15 08/23/24 08:35 50 MLS/HR Morphine Sulfate 2 mg Q3HPRN PRN IV 08/22/24 21:00 08/23/24 10:17 2 MG Dextrose/Sodium Chloride 1,000 ml @ 75 mls/hr [id number] IV 08/22/24 19:00 08/23/24 08:19 75 MLS/HR Acetaminophen 1,000 mg Q6HPRN PRN IV 08/22/24 23:15 08/23/24 06:39 1,000 MG Hydromorphone HCl 1 mg Q3HPRN PRN IV 08/23/24 01:15 08/23/24 08:18 1 MG Meropenem 50 ml @ 17 mls/hr Q8H IV 08/23/24 13:00 Examination General Appearance: BELLO S - 3, sedated and mechanical ventilation Head Exam: Normal inspection Neck Exam: Normal inspection. Non-tender. Normal alignment Pulmonary/Respiratory: Chest non-tender. Clear bilateral breath sounds Cardiovascular/Chest: Regular rate and rhythm. No murmurs. No JVD. Peripheral Pulses: 2+ Radial (R). 2+ Radial (L). 2+ Pedal (R). 2+ Pedal (L) Abdominal Exam: Presence of dressing with open abdominal compartment given underwent exploratory laparotomy. Presence of wound VAC. abdomen distended. Ankle Exam: Negative ankle edema Lower extremities: Negative lower extremity edema Neuro/Mental Status: Sedated. laboratory and microbiology Laboratory Tests 08/23/24 03:11 Test 08/23/24 03:11 Range/Units Serum Glucose 132 H 74-106 mg/dL Microbiology Date/Time Source Procedure Growth Status 08/16/24 11:57 Sputum Gram Stain - Final Complete 08/16/24 11:57 Respiratory Culture - Final Beta Strep Non-A, Non-B Complete 08/16/24 01:00 Urine - Midstream Clean Catch Urine Culture - Final Complete 08/15/24 13:32 Nose MRSA Screen - Final Complete 08/15/24 10:33 Blood Blood Culture - Final NO GROWTH AFTER 5 DAYS OF INCUBATION. Complete Problem List/Assessment/Plan Problem List/Assessment/Plan Acute pancreatitis likely due to severe hypertriglyceridemia -currently on insulin 0.5 units/hour, non titratable -continue check trend of triglyceride q.12: Last triglyceride 303 -continue check trend of blood glucose Q 1 hour: Target blood glucose level (90-180 mg/dL). Stopped insulin drip if blood sugar less than 90. -continue D5W/1/2 NS 75 mL/hour -NPO -abdomen/pelvis CT(08/16/24): Acute pancreatitis, no evidence of necrosis or pseudocyst. -monitor potassium level q.6: Target potassium greater than 4.5. Received 40 mEq of potassium. -currently on antibiotic meropenem and linezolid. -serum alcohol less than three, chest ultrasound: No cholelithiasis. -IV albumin 25 g Q eight given 3rd spacing of IV fluids as needed. Abdominal compartment syndrome status post decompression -status post decompressive laparotomy (08/18/2024) -re exploratory irrigation of abdomen on 08/20/2024 -drainage via wound VAC as per surgery -continue to monitor intra-abdominal pressure -continue IV antibiotic -plan for re-evaluation in 2-3 days. Acute hypercapnic/hypoxic respiratory failure due to above -on mechanical ventilation: Respiratory rate 22, tidal volume 450, FiO2 30%, peep f5 -CT chest: Bilateral pleural effusions with bibasilar atelectasis and consolidation. IV lasix 40 mg daily -IV antibiotic with meropenem and linezolid. Severe anemia -received 4 units of PRBCs. -repeat H&H Q 8 hour. -replete if hemoglobin less than seven. Familial hypertriglyceridemia -continue current management of acute pancreatitis. Anion gap metabolic acidosis due to lactic acidosis: Resolved -continue with IV fluids. Moderate ascites -IR consultation for paracentesis Bilateral pleural effusion -Lasix 40 mg IV daily -continue to monitor electrolytes including potassium q.4. Sirs due to acute pancreatitis, no sepsis -continue current management of acute pancreatitis hyponatremia improving -continue monitor Q eight HR Severe Hypocalcemia -calcitriol and IV calcium per Nephrology Hypophosphatemia -repeat phosphorus level p.r.n. Hypomagnesemia -repeat magnesium level in a.m.. PUD prophylaxis: Protonix DVT prophylaxis: Enoxaparin Lines: Right IJ central line inserted on 08/16/2024 Right femoral a line inserted on 08/16/2024: Removed Intubated on 08/16/2024 PICC line on 08/19/24 Gutierrez catheter G-tube Goals of care, full code discussed greater than 24 minutes Critical care time spent greater than 83 minutes. Discussed with family as well. Plan discussed with Dr Bang Transfer summary: Patient is 34-year-old female with past medical history of hypertriglyceridemia was diagnosed with severe pancreatitis. Given worsening respiratory distress patient was intubated on 08/16/2024. Patient was initially receiving insulin at 3 units per hour with D5/DW , progressively triglyceride level reduced from 2904 to 243. Gradual insulin rate reduced to 0.5 unit/hour. Target to maintain blood glucose between 150-200 . She will also need continuous monitoring of electrolytes especially potassium, magnesium and phosphorus. Patient will also diagnosed with intra-abdominal compartment syndrome underwent decompressive laparotomy on 08/18/2024. Repeat reexploration was done on 08/20/24. Continue monitoring intra-abdominal pressure q.[address] Dominguez. Patient also requiring higher level of pain management with fentanyl and Versed. Patient can not receive propofol given high triglyceridemia. Avoid using paralytics given complication of critical care myopathy. Given triglyceride lowering agent can not be initiated as she is intubated and NPO, patient will need insulin drip at lower rate to maintain triglyceride level less than 500 until patient's compartment syndrome results and she is in a state where she able to eat by mouth. Patient's kidney function significantly continue to improve, lactic acidosis also improved, now patient is euvolemia, we will require maintenance IV fluid and she is also receiving TPN via PICC line. continue current management and follow up with surgery recommendation for intra- abdominal compartment syndrome. Plan discussed with: Son, Other Dietary Evaluation Review Comments: 1) Increase TPN to meet at least 75% of estimated needs 2) Advance pt diet when medically feasible to a Low Fat diet 3) Continue current plan of care Expected Outcomes/Goals: 1) Pt diet to advance 2) Pt labs to improve 3) F/U in 2-3 days Date of Service: Aug 23, 2024 Billing Provider: DARWIN BANG MD Common Visit Codes: [id number] CARE 30-74 MIN FRANCIS JONES RESIDENT Aug 23, 2024 11:38 DARWIN BANG MD Aug 23, 2024 13:48
[2024-08-23 12:55] LABS: Alanine Aminotransferase 12 U/L (7-40); Albumin 2.9 g/dL (3.2-4.8); Alkaline Phosphatase 56 U/L (46-116); Anion Gap 6 (5-15); Aspartate Aminotransferase 35 U/L (13-40); BUN/Creatinine Ratio 19.3 (10.0-20.0); Bilirubin, Total 0.6 mg/dL (0.2-1.0); Blood Urea Nitrogen 22 mg/dL (9-23); Calcium 8.8 mg/dL (8.7-10.4); Carbon Dioxide 29 mmol/L (20-31); Chloride 101 mmol/L (98-107); Glucose 111 mg/dL (74-106); Magnesium 1.7 mg/dL (1.6-2.6); Phosphorus 4.5 mg/dL (2.4-5.1); Potassium 4.2 mmol/L (3.5-5.1); Sodium 136 mmol/L (136-145); Total Protein 5.1 g/dL (5.7-8.2)
[2024-08-23 12:56] LABS: Basophils # (auto) 0 10 ^3/uL (0-0.2); Basophils % (auto) 0.1 % (0.0-2.0); Monocytes # (auto) 0.9 10 ^3/uL (0-1.3); Monocytes % (auto) 5.7 % (0.0-12.0); White Blood Cell 16.2 10^3/uL (4.4-10.8)
[2024-08-23 12:58] LABS: Eosinophils # (auto) 0.2 10 ^3/uL (0-0.8); Eosinophils % (auto) 0.9 % (0.0-7.0); Hematocrit 22.2 % (36.0-46.0); Hemoglobin 7.6 g/dL (12.2-16.2); Lymphocytes # (auto) 1.2 10 ^3/uL (0.4-5.4); Lymphocytes % (auto) 7.7 % (10.0-50.0); Mean Corpuscular Hemoglobin 29.7 pg (28.0-32.0); Mean Corpuscular Hgb Conc. 34.4 g/dL (32.0-36.0); Mean Corpuscular Volume 86.4 fL (80.0-100.0); Neutrophils # (auto) 13.9 10 ^3/uL (1.6-8.6); Neutrophils % (auto) 85.6 % (37.0-80.0); Nucleated Red Blood Cells % 0.1 %; Platelet Count (auto) 162 10^3/uL (140-450); Red Blood Cells 2.57 10^6/uL (4.0-5.20); Red Cell Distribution Width 14.9 % (11.8-14.3)
[2024-08-23] MEDS: MEROPENEM 1GM IVPB 50 ML IV SCH (13:00)
--- NOTE | 2024-08-23 18:42 | DVHPN2 ---
Progress Note - Dictate Date Seen: Aug 23, 2024 Has the PT tested + for MRSA If YES, has PT been informed?: No Medical Necessity Reason Pt with a Central, PICC or Fol: Yes The following are medically ne: Central Line, Gutierrez Catheter Reason for gutierrez catheter: Strict I&O Subjective Fluid balance approximately even Patient remains intubated in ICU Triglyceride level down trending vital signs Vital Sign Date Time Temp Pulse Resp B/P (MAP) Pulse Ox O2 Delivery O2 Flow Rate FiO2 08/23/24 18:37 89 22 117/69 08/23/24 18:30 97.7 99 207.9 08/23/24 18:16 30 08/23/24 17:43 Mechanical Ventilator+ Total Intake and Output 08/22/24 08/22/24 08/23/24 14:59 22:59 06:59 Intake Total 1885.964 ml 1233.464 ml 1839.464 ml Output Total 3710 ml 1630 ml Balance 1885.964 ml -2476.536 ml 209.464 ml medications Current Medications Medications Dose Ordered Sig/Snow Route Start Time Stop Time Status Last Admin Dose Admin Sodium Chloride 10 ml Q8HR IV 08/14/24 22:00 08/23/24 05:55 10 ML Pantoprazole Sodium 40 mg DAILY IV 08/15/24 10:00 08/23/24 08:17 40 MG Ergocalciferol 50,000 unit Q7D PO 08/15/24 10:00 08/15/24 08:53 50,000 UNIT Dextrose 50 ml UD PRN IV 08/15/24 12:45 Midazolam HCl 50 ml @ 1 mls/hr Q24H IV 08/16/24 11:30 08/23/24 17:53 15 MLS/HR Linezolid 300 ml @ 150 mls/hr Q12HR IV 08/16/24 13:00 08/23/24 08:16 150 MLS/HR Dexmedetomidine HCl 400 mcg/ Dextrose 100 ml @ 3.695 mls/ hr Q24H IV 08/17/24 02:45 08/23/24 13:42 12.933 MLS/HR Acetaminophen 650 mg Q8HPRN PRN PA 08/17/24 04:15 08/22/24 14:10 650 MG Calcitriol 1 mcg EOD IV 08/17/24 10:00 08/23/24 08:17 1 MCG Norepinephrine Bitartrate 250 ml @ 3.75 mls/hr Q24H IV 08/17/24 09:30 08/19/24 11:29 7.5 MLS/HR Rocuronium [place] 1000 mg/ Dextrose 250 ml @ 10.608 mls/ hr [id number] IV 08/18/24 13:30 08/18/24 13:30 10.608 MLS/HR Amino Acids 0 ml @ 0 mls/hr PER PHARMACY IV 08/19/24 14:45 Sodium Chloride 10 ml QSHIFT@10,22 IV 08/19/24 22:00 08/23/24 07:26 10 ML Rocuronium [place] 50 mg Q6HR PRN IV 08/21/24 11:45 08/23/24 10:17 50 MG Insulin Human (Reg)/Sodium Chloride 100 ml 1945 IV 08/21/24 19:45 UNV Sodium Acetate 40 meq/Potassium Acetate 20 meq/ Potassium Phosphate 11 meq/ Calcium Gluconate 2.3 meq/Magnesium Sulfate 12 meq/ Multivitamins 10 ml/Chromium/ Copper/Manganese/ Zinc 1 ml/Amino Acids/Dextrose 951.4462 ml @ 39 mls/hr [id number] IV 08/22/24 22:00 08/23/24 21:59 08/22/24 21:07 39 MLS/HR Diagnostic Test (Pha) 1 strip Q2HR 08/22/24 10:00 08/23/24 17:47 1 STRIP Insulin Human (Reg)/Sodium Chloride 100 ml @ 0.5 mls/hr Q24H IV 08/22/24 09:30 08/22/24 21:03 0.5 MLS/HR Furosemide 40 mg DAILY IV 08/23/24 10:00 08/23/24 08:17 40 MG Fentanyl Citrate 250 ml @ 2.5 mls/hr Q24H IV 08/22/24 12:15 08/23/24 17:54 50 MLS/HR Morphine Sulfate 2 mg Q3HPRN PRN IV 08/22/24 21:00 08/23/24 10:17 2 MG Dextrose/Sodium Chloride 1,000 ml @ 75 mls/hr [id number] IV 08/22/24 19:00 08/23/24 08:19 75 MLS/HR Acetaminophen 1,000 mg Q6HPRN PRN IV 08/22/24 23:15 08/23/24 14:08 1,000 MG Hydromorphone HCl 1 mg Q3HPRN PRN IV 08/23/24 01:15 08/23/24 18:04 1 MG Meropenem 50 ml @ 17 mls/hr Q8H IV 08/23/24 13:00 08/23/24 13:00 17 MLS/HR Fat Emulsion Intravenous 50 ml/ Sodium Chloride 40 meq/Potassium Chloride 20 meq/ Calcium Gluconate 4.65 meq/ Magnesium Sulfate 16 meq/ Multivitamins 10 ml/Chromium/ Copper/Manganese/ Zinc 1 ml/Amino Acids/Dextrose 1,045 ml @ 44 mls/hr [id number] IV 08/23/24 22:00 08/24/24 21:59 objective Young female Appears critically ill Intubated Sedated On pressors Diffuse anasarca Distended abdomen with dressing Gutierrez catheter Regular rate and rhythm No murmur laboratory and microbiology Laboratory Tests 08/23/24 11:50 Test 08/23/24 11:50 Range/Units Serum Glucose 111 H 74-106 mg/dL Assessment/Plan Acute kidney injury hemodynamic Shock due to pancreatitis Severe triglyceridemia > 2000 on admission Abdominal compartment syndrome s/p decompression 08/18/24 Hyponatremia Hypocalcemia Hypophosphatemia Acute respiratory failure Triglycerides down trending Electrolyte replacement diuretic to help manage fluid balances. We will modify dose to prevent fluid overload fluids now isotonic will monitor Na and Ca levels RISHI resolving Surgery plans possible abdominal closure in the near future Critically ill with guarded prognosis Critical care time spent 35 minutes from the standpoint patient is now clinically stable we will sign off the case. Dietary Evaluation Review Comments: 1) Increase TPN to meet at least 75% of estimated needs 2) Advance pt diet when medically feasible to a Low Fat diet 3) Continue current plan of care Expected Outcomes/Goals: 1) Pt diet to advance 2) Pt labs to improve 3) F/U in 2-3 days Plan discussed with: STONE Teague MD Aug 23, 2024 18:42
[2024-08-23 20:08] LABS: Basophils # (auto) 0 10 ^3/uL (0-0.2); Mean Corpuscular Hemoglobin 28.5 pg (28.0-32.0)
[2024-08-23 20:09] LABS: Basophils % (auto) 0.1 % (0.0-2.0); Eosinophils # (auto) 0.1 10 ^3/uL (0-0.8); Eosinophils % (auto) 1.1 % (0.0-7.0); Lymphocytes % (auto) 7.4 % (10.0-50.0); Mean Corpuscular Volume 86.2 fL (80.0-100.0); Monocytes # (auto) 0.7 10 ^3/uL (0-1.3); Monocytes % (auto) 5.4 % (0.0-12.0); Neutrophils # (auto) 11.7 10 ^3/uL (1.6-8.6); Platelet Count (auto) 155 10^3/uL (140-450); Red Blood Cells 2.32 10^6/uL (4.0-5.20); Red Cell Distribution Width 14.8 % (11.8-14.3); White Blood Cell 13.6 10^3/uL (4.4-10.8)
[2024-08-23 20:12] LABS: Hemoglobin 6.6 g/dL (12.2-16.2)
[2024-08-23 20:22] LABS: Alanine Aminotransferase 11 U/L (7-40); Albumin 2.6 g/dL (3.2-4.8); Alkaline Phosphatase 47 U/L (46-116); Anion Gap 6 (5-15); Aspartate Aminotransferase 31 U/L (13-40); BUN/Creatinine Ratio 19.6 (10.0-20.0); Blood Urea Nitrogen 22 mg/dL (9-23); Calcium 8.7 mg/dL (8.7-10.4); Carbon Dioxide 28 mmol/L (20-31); Chloride 102 mmol/L (98-107); Glucose 105 mg/dL (74-106); Magnesium 1.8 mg/dL (1.6-2.6); Potassium 4.1 mmol/L (3.5-5.1); Sodium 136 mmol/L (136-145)
[2024-08-23 20:23] LABS: Bilirubin, Total 0.5 mg/dL (0.2-1.0); Phosphorus 4.9 mg/dL (2.4-5.1); Total Protein 4.7 g/dL (5.7-8.2)
[2024-08-23 21:25] LABS: Platelet Estimate Adequate
[2024-08-23 21:28] LABS: Anisocytosis Slight
[2024-08-23] MEDS: TPN PER PHARMACY IV NR (21:31)
[2024-08-24] VITALS (106 sets, daily range): BP systolic 88–183; BP diastolic 33–123; PULSE 72–133; RESP 14–53; TEMP 39.6; O2SAT 95–100
[2024-08-24 04:36] LABS: Mean Corpuscular Hemoglobin 30.1 pg (28.0-32.0); Mean Corpuscular Hgb Conc. 34.6 g/dL (32.0-36.0); Platelet Count (auto) 157 10^3/uL (140-450); Red Blood Cells 2.65 10^6/uL (4.0-5.20); Red Cell Distribution Width 14.6 % (11.8-14.3); White Blood Cell 14.4 10^3/uL (4.4-10.8)
[2024-08-24 04:42] LABS: Basophils % (manual) 0 (0.0-2.0); Blast Cells 0; Metamyelocytes % 0; Myelocytes % 0; Promyelocytes % 0; Reactive Lymphocytes 0
[2024-08-24 05:02] LABS: Alanine Aminotransferase 11 U/L (7-40); Albumin 2.7 g/dL (3.2-4.8); Alkaline Phosphatase 62 U/L (46-116); Anion Gap 4 (5-15); Aspartate Aminotransferase 37 U/L (13-40); Bilirubin, Total 0.7 mg/dL (0.2-1.0); Blood Urea Nitrogen 24 mg/dL (9-23); Calcium 8.6 mg/dL (8.7-10.4); Carbon Dioxide 29 mmol/L (20-31); Chloride 102 mmol/L (98-107); Glucose 98 mg/dL (74-106); Magnesium 1.8 mg/dL (1.6-2.6); Phosphorus 4.6 mg/dL (2.4-5.1); Potassium 4.2 mmol/L (3.5-5.1); Sodium 135 mmol/L (136-145); Total Protein 4.7 g/dL (5.7-8.2)
--- NOTE | 2024-08-24 05:31 | DVH ---
EXAM: XY CHEST XRAY 1 VIEW Indication:on vent Technique: Single frontal view of the chest was obtained Comparison: XY CHEST XRAY 1 VIEW on DOS: 08/23/24, XY CHEST XRAY 1 VIEW on DOS: 08/22/24, XY CHEST XR AY 1 VIEW on DOS: 08/21/24, XY CHEST XRAY 1 VIEW on DOS: 08/20/24, XY CHEST PORTABLE on DOS: 08/19/24 , XY CHEST XRAY 1 VIEW on DOS: 08/23/24 FINDINGS: Lines and Tubes: Endotracheal tube and enteric catheter in satisfactory position. Right central venou s catheter in satisfactory position. Lungs: Low lung volumes. Pleura : No effusion. No pneumothorax. Cardiomediastinal contours: Unremarkable Bones: Unremarkable IMPRESSION: 1. No significant change compared to prior exam.
[2024-08-24 06:03] LABS: Band Neutrophils % (manual) 1; Eosinophils % (manual) 2 (0-7); Lymphocytes % (manual) 8 (10.0-50.0); Monocytes % (manual) 8 (0-12); Platelet Estimate Adequate
[2024-08-24 06:05] LABS: Anisocytosis Slight
[2024-08-24 08:37] LABS: Base Excess 0.5 mmol/L (-2.0-3.0)
[2024-08-24 09:10] LABS: Hematocrit 27.9 % (36.0-46.0); Hemoglobin 9.7 g/dL (12.2-16.2)
[2024-08-24] MEDS: MICAFUNGIN SODIUM 100 MG in SODIUM CHL 0.9% 100 ML IV SCH (09:53)
--- NOTE | 2024-08-24 10:43 | DVHPN2 ---
Subjective Chemically sedated Reviewed: Care Plan, H&P, Labs, Medications Changes from previous H/P or p: No Changes Eyes: No Pain, No Vision change, No Conjunctivae inflammation, No Eyelid inflammation, No Other, No Redness ENT: No Ear pain, No Ear discharge, No Nose pain, No Nose discharge, No Nose congestion, No Mouth pain, No Mouth swelling, No Throat pain, No Throat swelling, No Other Cardiovascular: No Chest Pain, No Palpitations, No Orthopnea, No Paroxysmal Noc. Dyspnea, No Edema, No Lt Headedness, No Other Respiratory: No Cough, No Dry, No Shortness of breath, No SOB with excertion, No Wheezing, No Hemoptysis, No Pleuritic Pain, No Sputum, No Other Gastrointestinal: Nausea, Vomiting, Abdominal Pain, Diarrhea Genitourinary: No Dysuria, No Frequency, No Incontinence, No Hematuria, No Retention, No Other Musculoskeletal: No other, No neck pain, No shoulder pain, No arm pain, No back pain, No hand pain, No leg pain, No foot pain Skin: No Rash, No Lesions, No Jaundice, No Bruising, No Other Objective Vitals Vital Signs Date Time Temp Pulse Resp B/P (MAP) Pulse Ox O2 Delivery O2 Flow Rate FiO2 08/24/24 10:15 99.3 103 23 150/77 (101) 98 210.7 08/24/24 09:35 Mechanical Ventilator+ 30 30 Intake/Output Intake and Output 08/24/24 07:00 Intake Total 6694.392 ml Output Total 4305 ml Balance 2389.392 ml IV Total 6094.392 ml Blood Product 600 ml Other 0 ml Output Urine Total 3395 ml Gastric Drainage Total 600 ml Drainage Total 310 ml General Appearance: severe distress HEENT: Atraumatic, PERRLA Lungs: Clear to auscultation, Normal air movement, Other (Mechanical ventilation) Cardiovascular: Normal S1, Normal S2 Abdomen: Other (Hypoactive bowel sounds. Greater than serosanguineous drainage. SOLIS drain x 2. ) Musculoskeletal: Weak motor strength RUE, Weak motor strength LUE, Weak motor strength RLE, Weak motor strength LLE Medications Current Medications Medications Dose Ordered Sig/Snow Route Start Time Stop Time Status Last Admin Dose Admin Sodium Chloride 10 ml Q8HR IV 08/14/24 22:00 08/24/24 07:56 10 ML Pantoprazole Sodium 40 mg DAILY IV 08/15/24 10:00 08/24/24 07:54 40 MG Ergocalciferol 50,000 unit Q7D PO 08/15/24 10:00 08/15/24 08:53 50,000 UNIT Dextrose 50 ml UD PRN IV 08/15/24 12:45 Midazolam HCl 50 ml @ 1 mls/hr Q24H IV 08/16/24 11:30 08/24/24 07:54 15 MLS/HR Linezolid 300 ml @ 150 mls/hr Q12HR IV 08/16/24 13:00 08/24/24 07:54 150 MLS/HR Dexmedetomidine HCl 400 mcg/ Dextrose 100 ml @ 3.695 mls/ hr Q24H IV 08/17/24 02:45 08/24/24 04:56 12.933 MLS/HR Acetaminophen 650 mg Q8HPRN PRN CO 08/17/24 04:15 08/22/24 14:10 650 MG Calcitriol 1 mcg EOD IV 08/17/24 10:00 08/23/24 08:17 1 MCG Norepinephrine Bitartrate 250 ml @ 3.75 mls/hr Q24H IV 08/17/24 09:30 08/19/24 11:29 7.5 MLS/HR Amino Acids 0 ml @ 0 mls/hr PER PHARMACY IV 08/19/24 14:45 Sodium Chloride 10 ml QSHIFT@10,22 IV 08/19/24 22:00 08/24/24 07:55 10 ML Insulin Human (Reg)/Sodium Chloride 100 ml 1945 IV 08/21/24 19:45 UNV Diagnostic Test (Pha) 1 strip Q2HR 08/22/24 10:00 08/24/24 09:31 1 STRIP Insulin Human (Reg)/Sodium Chloride 100 ml @ 0.5 mls/hr Q24H IV 08/22/24 09:30 08/22/24 21:03 0.5 MLS/HR Furosemide 40 mg DAILY IV 08/23/24 10:00 08/24/24 07:55 40 MG Fentanyl Citrate 250 ml @ 2.5 mls/hr Q24H IV 08/22/24 12:15 08/24/24 08:21 50 MLS/HR Dextrose/Sodium Chloride 1,000 ml @ 75 mls/hr [id number] IV 08/22/24 19:00 08/24/24 09:30 75 MLS/HR Acetaminophen 1,000 mg Q6HPRN PRN IV 08/22/24 23:15 08/24/24 05:34 1,000 MG Meropenem 50 ml @ 17 mls/hr Q8H IV 08/23/24 13:00 08/24/24 04:55 17 MLS/HR Fat Emulsion Intravenous 50 ml/ Sodium Chloride 40 meq/Potassium Chloride 20 meq/ Calcium Gluconate 4.65 meq/ Magnesium Sulfate 16 meq/ Multivitamins 10 ml/Chromium/ Copper/Manganese/ Zinc 1 ml/Amino Acids/Dextrose 1,045 ml @ 44 mls/hr [id number] IV 08/23/24 22:00 08/24/24 21:59 08/23/24 21:31 44 MLS/HR Micafungin Sodium 100 mg/Sodium Chloride 100 ml @ 100 mls/hr DAILY IV 08/24/24 10:00 08/24/24 09:53 100 MLS/HR Hydromorphone HCl 1.5 mg Q3HPRN PRN IV 08/24/24 10:30 UNV Rocuronium [place] 50 mg Q3HR PRN IV 08/24/24 10:30 UNV Laboratory Results Laboratory Tests 08/24/24 03:32 08/24/24 08:40 Chemistry Test 08/23/24 11:50 08/23/24 19:58 08/24/24 03:32 Albumin 2.9 g/dL (3.2-4.8) L 2.6 g/dL (3.2-4.8) L 2.7 g/dL (3.2-4.8) L Calcium Level 8.8 mg/dL (8.7-10.4) 8.7 mg/dL (8.7-10.4) 8.6 mg/dL (8.7-10.4) L Magnesium Level 1.7 mg/dL (1.6-2.6) 1.8 mg/dL (1.6-2.6) 1.8 mg/dL (1.6-2.6) Phosphorus Level 4.5 mg/dL (2.4-5.1) 4.9 mg/dL (2.4-5.1) 4.6 mg/dL (2.4-5.1) Total Protein 5.1 g/dL (5.7-8.2) L 4.7 g/dL (5.7-8.2) L 4.7 g/dL (5.7-8.2) L Lipid panel Test 08/23/24 22:54 Triglycerides Level 319 mg/dL (< 150) H LFT Test 08/23/24 11:50 08/23/24 19:58 08/24/24 03:32 Alanine Aminotransferase (ALT) 12 U/L (7-40) 11 U/L (7-40) 11 U/L (7-40) Alkaline Phosphatase 56 U/L (46-116) 47 U/L (46-116) 62 U/L (46-116) Aspartate Amino Transferase (AST) 35 U/L (13-40) 31 U/L (13-40) 37 U/L (13-40) Total Bilirubin 0.6 mg/dL (0.2-1.0) 0.5 mg/dL (0.2-1.0) 0.7 mg/dL (0.2-1.0) Urinalysis Test 08/14/24 12:07 08/16/24 12:55 Urine Color Colorless (Yellow) Urine Clarity Clear (Clear) Urine pH 5.5 (5.0-9.0) Urine Specific [place] 1.013 (1.001-1.035) Urine Protein Negative (Negative) Urine Ketones Negative (Negative) Urine Blood 1+ /uL (Negative) H Urine Nitrite Negative (Negative) Urine Bilirubin Negative (Negative) Urine Urobilinogen Normal mg/dL (Negative) Urine Leukocyte Esterase Negative /uL (Negative) Urine RBC 3 /hpf (0 - 4) Urine WBC <1 /hpf (0 - 5) Urine Squamous Epithelial Cells Few /hpf (<5) Urine Bacteria Few /hpf (None Seen) H Urine Glucose Normal mg/dL (Normal) Urine Creatinine 242.96 mg/dL (30.0-125.0) H Urine Protein/Creatinine Ratio 1.09 Urine Sodium 13 mmol/L (40-220) L Urine Total Protein 265.4 mg/dL (1-14) H Blood Gas Results Test 08/24/24 08:26 Arterial Blood pH 7.391 (7.350-7.450) FiO2 % 40.0 Microbiology Microbiology Date/Time Source Procedure Growth Status 08/16/24 11:57 Sputum Gram Stain - Final Complete 08/16/24 11:57 Respiratory Culture - Final Beta Strep Non-A, Non-B Complete 08/16/24 01:00 Urine - Midstream Clean Catch Urine Culture - Final Complete 08/15/24 13:32 Nose MRSA Screen - Final Complete 08/15/24 10:33 Blood Blood Culture - Final NO GROWTH AFTER 5 DAYS OF INCUBATION. Complete Labs and/or images reviewed: Labs reviewed by me, Image(s) reviewed by me Assessment/Plan Assessment/Plan Impression: -acute pancreatitis secondary to hypertriglyceridemia -abdominal compartment syndrome -acute hypoxic respiratory failure -anemia -gap acidosis -ascites -pleural effusions -sirs, questionable sepsis given fevers Plan: -continue insulin drip -continue current sedation -patient is status post exploratory laparotomy with open abdomen, continued increased abdominal pressures at 15 mmhg -continue TPN -q.2 hours Accu-Cheks -pain management: Increase Dilaudid -patient with persistent fevers over the past 24 hours. White blood cell count also elevated. Continue current antibiotic therapy, add micafungin. Repeat blood cultures -PUD, DVT prophylaxis -surgical consultation: Plans for possible returned to OR this coming Monday -repeat labs, ABG in a.m. Critical care time spent with patient discussing and formulating plan of care: 40 minutes. This does not include time spent performing procedures. This medical document was created using an electronic medical record system with [employer] dictation system. Although this document has been carefully reviewed, there may still be some phonetic and typographical errors. These areas are purely typographical due to imperfections of the software programs, and do not reflect any compromise in the patient's medical care. Plan discussed with: Patient, Other (RN) My Orders Orders - LAURA TAYLOR NP Procedure Category Date Status Time Blood Culture HEIDE 08/24/24 In Process 08:05 Micafungin Sodium PHA 08/24/24 In Process (Mycamine) 10:00 Comprehensive LAB 08/25/24 Verified Metabolic Panel 05:00 Comprehensive LAB 08/26/24 Verified Metabolic Panel 05:00 Comprehensive LAB 08/27/24 Verified Metabolic Panel 05:00 Comprehensive LAB 08/28/24 Verified Metabolic Panel 05:00 Comprehensive LAB 08/29/24 Verified Metabolic Panel 05:00 Complete Blood Count LAB 08/25/24 Verified 05:00 Complete Blood Count LAB 08/26/24 Verified 05:00 Complete Blood Count LAB 08/27/24 Verified 05:00 Complete Blood Count LAB 08/28/24 Verified 05:00 Complete Blood Count LAB 08/29/24 Verified 05:00 Hydromorphone PHA 08/24/24 Logged Injection (Dilaudid 10:30 Rocuronium [place] PHA 08/24/24 Logged 10:30 Lipase LAB 08/25/24 Verified 04:00 Accucheck BD 08/24/24 Transmitted 10:30 Accucheck BD 08/24/24 Transmitted 12:00 Accucheck BD 08/24/24 Transmitted 13:30 Accucheck BD 08/24/24 Transmitted 15:00 Accucheck BD 08/24/24 Transmitted 16:30 Accucheck BD 08/24/24 Transmitted 18:00 Accucheck BD 08/24/24 Transmitted 19:30 Accucheck BD 08/24/24 Transmitted 21:00 Accucheck BD 08/24/24 Transmitted 22:30 Accucheck BD 08/25/24 Transmitted 00:00 Accucheck BD 08/25/24 Transmitted 01:30 Accucheck BD 08/25/24 Transmitted 03:00 Accucheck BD 08/25/24 Transmitted 04:30 Accucheck BD 08/25/24 Transmitted 06:00 Accucheck BD 08/25/24 Transmitted 07:30 Accucheck BD 08/25/24 Transmitted 09:00 Accucheck BD 08/25/24 Transmitted 10:30 Accucheck BD 08/25/24 Transmitted 12:00 Accucheck BD 08/25/24 Transmitted 13:30 Accucheck BD 08/25/24 Transmitted 15:00 Accucheck BD 08/25/24 Transmitted 16:30 Accucheck BD 08/25/24 Transmitted 18:00 Accucheck BD 08/25/24 Transmitted 19:30 Accucheck BD 08/25/24 Transmitted 21:00 Accucheck BD 08/25/24 Transmitted 22:30 Accucheck BD 08/26/24 Transmitted 00:00 Accucheck BD 08/26/24 Transmitted 01:30 Accucheck BD 08/26/24 Transmitted 03:00 Accucheck BD 08/26/24 Transmitted 04:30 Accucheck BD 08/26/24 Transmitted 06:00 Accucheck BD 08/26/24 Transmitted 07:30 Accucheck BD 08/26/24 Transmitted 09:00 Accucheck BD 08/26/24 Transmitted 10:30 Accucheck BD 08/26/24 Transmitted 12:00 Accucheck BD 08/26/24 Transmitted 13:30 Accucheck BD 08/26/24 Transmitted 15:00 Accucheck BD 08/26/24 Transmitted 16:30 Accucheck BD 08/26/24 Transmitted 18:00 Accucheck BD 08/26/24 Transmitted 19:30 Accucheck BD 08/26/24 Transmitted 21:00 Accucheck BD 08/26/24 Transmitted 22:30 Accucheck BD 08/27/24 Transmitted 00:00 Accucheck BD 08/27/24 Transmitted 01:30 Accucheck BD 08/27/24 Transmitted 03:00 Accucheck BD 08/27/24 Transmitted 04:30 Accucheck BD 08/27/24 Transmitted 06:00 Accucheck BD 08/27/24 Transmitted 07:30 Accucheck BD 08/27/24 Transmitted 09:00 Date of Service: Aug 24, 2024 Billing Provider: LAURA TAYLOR NP Common Visit Codes: [id number] CARE 30-74 MIN LAURA TAYLOR NP Aug 24, 2024 10:43
[2024-08-24] MEDS: ROCURONIUM 10MG/ML 10ML VIAL IV PRN (12:31)
[2024-08-24] MEDS: HYDROmorphone HCL 2 MG/ML VL/or syr IV PRN (12:31)
[2024-08-24] MEDS: TPN PER PHARMACY IV NR (21:30)
--- NOTE | 2024-08-24 21:37 | DVHPN2 ---
Progress Note - Dictate Date Seen: Aug 24, 2024 Has the PT tested + for MRSA If YES, has PT been informed?: No Medical Necessity Reason Pt with a Central, PICC or Fol: Yes The following are medically ne: Central Line, Gutierrez Catheter Reason for gutierrez catheter: Strict I&O Subjective Patient seen and examined at bedside. Sedated, intubated on mechanical ventilator. Overnight events reviewed. vital signs Vital Sign Date Time Temp Pulse Resp B/P (MAP) Pulse Ox O2 Delivery O2 Flow Rate FiO2 08/24/24 20:30 98.1 74 22 100/49 (66) 97 208.6 08/24/24 20:00 Mechanical Ventilator+ 30 30 Total Intake and Output 08/23/24 08/23/24 08/24/24 15:00 23:00 07:00 Intake Total 1740.464 ml 2424.464 ml 2529.464 ml Output Total 2750 ml 1555 ml Balance 1740.464 ml -325.536 ml 974.464 ml medications Current Medications Medications Dose Ordered Sig/Snow Route Start Time Stop Time Status Last Admin Dose Admin Sodium Chloride 10 ml Q8HR IV 08/14/24 22:00 08/24/24 07:56 10 ML Pantoprazole Sodium 40 mg DAILY IV 08/15/24 10:00 08/24/24 07:54 40 MG Ergocalciferol 50,000 unit Q7D PO 08/15/24 10:00 08/15/24 08:53 50,000 UNIT Dextrose 50 ml UD PRN IV 08/15/24 12:45 Midazolam HCl 50 ml @ 1 mls/hr Q24H IV 08/16/24 11:30 08/24/24 21:12 15 MLS/HR Linezolid 300 ml @ 150 mls/hr Q12HR IV 08/16/24 13:00 08/24/24 21:18 150 MLS/HR Dexmedetomidine HCl 400 mcg/ Dextrose 100 ml @ 3.695 mls/ hr Q24H IV 08/17/24 02:45 08/24/24 21:11 12.933 MLS/HR Acetaminophen 650 mg Q8HPRN PRN NM 08/17/24 04:15 08/22/24 14:10 650 MG Calcitriol 1 mcg EOD IV 08/17/24 10:00 08/23/24 08:17 1 MCG Norepinephrine Bitartrate 250 ml @ 3.75 mls/hr Q24H IV 08/17/24 09:30 08/19/24 11:29 7.5 MLS/HR Amino Acids 0 ml @ 0 mls/hr PER PHARMACY IV 08/19/24 14:45 Sodium Chloride 10 ml QSHIFT@10,22 IV 08/19/24 22:00 08/24/24 07:55 10 ML Insulin Human (Reg)/Sodium Chloride 100 ml 1945 IV 08/21/24 19:45 UNV Diagnostic Test (Pha) 1 strip Q2HR 08/22/24 10:00 08/24/24 20:00 1 STRIP Insulin Human (Reg)/Sodium Chloride 100 ml @ 0.5 mls/hr Q24H IV 08/22/24 09:30 08/22/24 21:03 0.5 MLS/HR Furosemide 40 mg DAILY IV 08/23/24 10:00 08/24/24 07:55 40 MG Fentanyl Citrate 250 ml @ 2.5 mls/hr Q24H IV 08/22/24 12:15 08/24/24 17:33 50 MLS/HR Dextrose/Sodium Chloride 1,000 ml @ 75 mls/hr [id number] IV 08/22/24 19:00 08/24/24 09:30 75 MLS/HR Acetaminophen 1,000 mg Q6HPRN PRN IV 08/22/24 23:15 08/24/24 16:52 1,000 MG Meropenem 50 ml @ 17 mls/hr Q8H IV 08/23/24 13:00 08/24/24 20:00 17 MLS/HR Fat Emulsion Intravenous 50 ml/ Sodium Chloride 40 meq/Potassium Chloride 20 meq/ Calcium Gluconate 4.65 meq/ Magnesium Sulfate 16 meq/ Multivitamins 10 ml/Chromium/ Copper/Manganese/ Zinc 1 ml/Amino Acids/Dextrose 1,045 ml @ 44 mls/hr [id number] IV 08/23/24 22:00 08/24/24 21:59 08/23/24 21:31 44 MLS/HR Micafungin Sodium 100 mg/Sodium Chloride 100 ml @ 100 mls/hr DAILY IV 08/24/24 10:00 08/24/24 09:53 100 MLS/HR Hydromorphone HCl 1.5 mg Q3HPRN PRN IV 08/24/24 10:30 08/24/24 16:31 1.5 MG Rocuronium [place] 50 mg Q3HR PRN IV 08/24/24 10:30 08/24/24 12:31 50 MG Sodium Chloride 60 meq/Calcium Gluconate 2.3 meq/ Magnesium Sulfate 20 meq/ Multivitamins 10 ml/Chromium/ Copper/Manganese/ Zinc 1 ml/Amino Acids/Dextrose 1,035.9462 ml @ 43 mls/hr Q24H6M IV 08/24/24 22:00 08/25/24 19:59 08/24/24 21:30 43 MLS/HR objective Gen.: Patient lying in bed in medical ICU. Sedated, intubated on mechanical ventilator. Head: Normocephalic, atraumatic. Eyes: PERRLA. Ears: Normal external anatomy. Throat: Endotracheal tube and orogastric tube in place. Neck: Supple, trachea midline. Chest: Transmitted breath sounds bilaterally. Decreased air entry bilaterally. No wheezing. Bibasilar crackles. Cardiovascular: Positive S1, positive S2. Regular rate and rhythm. Abdomen: Positive bowel sounds in all 4 quadrants. Soft, nontender, nondistended. : Gutierrez in place. Normal external genitalia. Rectal: Deferred. Skin: Warm, dry. Intact. Extremities: 2+ radial pulses bilaterally. No lower extremity edema. Neuro: Sedated. laboratory and microbiology Laboratory Tests 08/24/24 08:40 08/24/24 03:32 Test 08/24/24 03:32 Range/Units Serum Glucose 98 74-106 mg/dL Assessment/Plan Impression: Acute hypoxic respiratory failure On mechanical ventilator Hypertriglyceridemia induced acute pancreatitis Hypocalcemia Hypophosphatemia Peritonitis Acute abdomen Ascites Hyponatremia due to hypotonic IV fluid Vitamin-D deficiency Hypomagnesemia Hyperparathyroidism immune Mandaeism diffuse plasmapheresis Lactic acidosis, improving Events: Remains on vent support On assist control mode with respiratory rate of 22, tidal volume 450, PEEP of 5, FiO2 of 30%. ABG reviewed, compensated. PALMIRA q.3 hours Sedated on Fentanyl, Versed On Precedex drip Patient spiking fevers Repeat blood cultures Continue antibiotics Insulin drip TPN for nutritional support IV fluids with D5-NS. Wound care Surgery recommendations appreciated. Monitor hemoglobin Diurese w/ Lasix as tolerated Monitor renal function Labs and imaging reviewed. Rest of plan as noted below. Plan: s/p intubation on mechanical ventilator On assist control mode with respiratory rate of 22, tidal volume 450, PEEP of 5, FiO2 of 30%. Titrate FIO2 to keep O2 saturation above 92%. VAP bundle Daily ABG and CXR while intubated. Sedate for ventilatory synchrony: On fentanyl and Versed drips. Start pressors for hemodynamic support if necessary. Keep MAP above 65 mmHg/SBP above 90 mmHg. Continue broad spectrum antibiotics. F/u cultures. Monitor renal function due to Acute kidney injury. Monitor electrolytes. Supplement as necessary. Received calcium gluconate Potassium, calcium and magnesium were supplemented. Continue IV fluids Accu-cheks, on insulin drip. Abdomen was severely distended. Limited ultrasound of the abdomen revealed no pocket amenable for paracentesis. Recommended for RN to check bladder pressure every 6 hours. Currently it was 16 mmHg. Surgery recommendations appreciated - we will consider emergent surgery if abdominal pressures exceeding 25 mmHg. GI/DVT prophylaxis. Condition: Critical Prognosis: Poor given multiple comorbidities. Rest of plan per hospitalist and other consultants. A total of 35 minutes of critical care time was spent reviewing the patient record, examining the patient, making a diagnostic and therapeutic plan, discussing this plan with the medical personnel, following up on diagnostic studies and following the patient for clinical stability excluding any and all procedures. At least 50% of this time was spent in direct, [id number] contact. Thank you Dr. Bedolla for allowing me to participate in this patient's care. Further recommendations will depend on patient's clinical course. Please do not hesitate to contact me if you have any questions or concerns. This medical document was created using an electronic medical record system with [employer] dictation system. Although this document has been carefully reviewed, there may still be some phonetic and typographical errors. These areas are purely typographical due to imperfections of the software programs, and do not reflect any compromise in the patient's medical care. Dietary Evaluation Review Comments: 1) Increase TPN to meet at least 75% of estimated needs 2) Advance pt diet when medically feasible to a Low Fat diet 3) Continue current plan of care Expected Outcomes/Goals: 1) Pt diet to advance 2) Pt labs to improve 3) F/U in 2-3 days Plan discussed with: Other (ANDRES Jensen) Critical Care Time(min): 35 JUDE REN MD Aug 24, 2024 21:37
[2024-08-25] VITALS (108 sets, daily range): BP systolic 102–182; BP diastolic 47–116; PULSE 72–139; RESP 13–39; TEMP 96.6–102.6; O2SAT 89–100
[2024-08-25 03:38] LABS: Hemoglobin 7.9 g/dL (12.2-16.2); Mean Corpuscular Hgb Conc. 34.8 g/dL (32.0-36.0)
[2024-08-25 03:39] LABS: Hematocrit 22.5 % (36.0-46.0); Mean Corpuscular Volume 86.2 fL (80.0-100.0); Platelet Count (auto) 178 10^3/uL (140-450); Red Blood Cells 2.62 10^6/uL (4.0-5.20); Red Cell Distribution Width 14.7 % (11.8-14.3); White Blood Cell 13.2 10^3/uL (4.4-10.8)
[2024-08-25 03:41] LABS: Basophils % (manual) 0 (0.0-2.0); Blast Cells 0; Eosinophils % (manual) 0 (0-7); Metamyelocytes % 0; Myelocytes % 0; Promyelocytes % 0; Reactive Lymphocytes 0
[2024-08-25 03:47] LABS: Alanine Aminotransferase 12 U/L (7-40); Albumin 2.6 g/dL (3.2-4.8); Alkaline Phosphatase 51 U/L (46-116); Anion Gap 6 (5-15); Aspartate Aminotransferase 30 U/L (13-40); BUN/Creatinine Ratio 22.4 (10.0-20.0); Blood Urea Nitrogen 22 mg/dL (9-23); Calcium 8.5 mg/dL (8.7-10.4); Carbon Dioxide 27 mmol/L (20-31); Chloride 104 mmol/L (98-107); Glucose 142 mg/dL (74-106); Lipase 26 U/L (12-53); Magnesium 1.8 mg/dL (1.6-2.6); Potassium 3.5 mmol/L (3.5-5.1); Sodium 137 mmol/L (136-145)
[2024-08-25 03:48] LABS: Phosphorus 4.3 mg/dL (2.4-5.1)
[2024-08-25 03:49] LABS: Bilirubin, Total 0.5 mg/dL (0.2-1.0); Total Protein 4.5 g/dL (5.7-8.2)
[2024-08-25 04:02] LABS: Triglycerides 301 mg/dL (< 150)
[2024-08-25 04:48] LABS: Band Neutrophils % (manual) 6; Lymphocytes % (manual) 2 (10.0-50.0); Monocytes % (manual) 8 (0-12); Platelet Estimate Adequate
--- NOTE | 2024-08-25 05:48 | DVH ---
EXAM: XY CHEST XRAY 1 VIEW Indication:on vent Technique: Single frontal view of the chest was obtained Comparison: XY CHEST XRAY 1 VIEW on DOS: 08/24/24, XY CHEST XRAY 1 VIEW on DOS: 08/23/24, XY CHEST XR AY 1 VIEW on DOS: 08/22/24, XY CHEST XRAY 1 VIEW on DOS: 08/21/24, XY CHEST XRAY 1 VIEW on DOS: 08/20, XY CHEST XRAY 1 VIEW on DOS: 08/24/24 FINDINGS: Lines and Tubes: Endotracheal tube and enteric catheter in satisfactory position. Right central venou s catheter in satisfactory position. Lungs: Low lung volumes. Pleura : No effusion. No pneumothorax. Cardiomediastinal contours: Unremarkable Bones: Unremarkable IMPRESSION: 1. No significant change compared to prior exam.
--- NOTE | 2024-08-25 07:35 | DVHPN2 ---
Progress Note Date Seen: Aug 25, 2024 Has the PT tested + for MRSA If YES, has PT been informed?: No Medical Necessity Reason Pt with a Central, PICC or Fol: Yes The following are medically ne: Central Line, Gutierrez Catheter Reason for gutierrez catheter: Strict I&O Objective vital signs Vital Sign Date Time Temp Pulse Resp B/P (MAP) Pulse Ox O2 Delivery O2 Flow Rate FiO2 08/25/24 07:30 101.1 139 39 179/94 (122) 89 214.0 08/25/24 06:00 30 08/25/24 06:00 Mechanical Ventilator+ Total Intake and Output 08/24/24 08/24/24 08/25/24 15:00 23:00 07:00 Intake Total 2180.464 ml 1627.464 ml 1871.464 ml Output Total 3280 ml 1755 ml Balance 2180.464 ml -1652.536 ml 116.464 ml medications Current Medications Medications Dose Ordered Sig/Snow Route Start Time Stop Time Status Last Admin Dose Admin Sodium Chloride 10 ml Q8HR IV 08/14/24 22:00 08/25/24 06:00 10 ML Pantoprazole Sodium 40 mg DAILY IV 08/15/24 10:00 08/24/24 07:54 40 MG Ergocalciferol 50,000 unit Q7D PO 08/15/24 10:00 08/15/24 08:53 50,000 UNIT Dextrose 50 ml UD PRN IV 08/15/24 12:45 Midazolam HCl 50 ml @ 1 mls/hr Q24H IV 08/16/24 11:30 08/25/24 06:59 15 MLS/HR Linezolid 300 ml @ 150 mls/hr Q12HR IV 08/16/24 13:00 08/24/24 21:18 150 MLS/HR Dexmedetomidine HCl 400 mcg/ Dextrose 100 ml @ 3.695 mls/ hr Q24H IV 08/17/24 02:45 08/24/24 21:11 12.933 MLS/HR Acetaminophen 650 mg Q8HPRN PRN ID 08/17/24 04:15 08/22/24 14:10 650 MG Calcitriol 1 mcg EOD IV 08/17/24 10:00 08/23/24 08:17 1 MCG Norepinephrine Bitartrate 250 ml @ 3.75 mls/hr Q24H IV 08/17/24 09:30 08/19/24 11:29 7.5 MLS/HR Amino Acids 0 ml @ 0 mls/hr PER PHARMACY IV 08/19/24 14:45 Sodium Chloride 10 ml QSHIFT@10,22 IV 08/19/24 22:00 08/25/24 07:01 10 ML Insulin Human (Reg)/Sodium Chloride 100 ml 1945 IV 08/21/24 19:45 UNV Diagnostic Test (Pha) 1 strip Q2HR 08/22/24 10:00 08/25/24 04:00 1 STRIP Insulin Human (Reg)/Sodium Chloride 100 ml @ 0.5 mls/hr Q24H IV 08/22/24 09:30 08/22/24 21:03 0.5 MLS/HR Furosemide 40 mg DAILY IV 08/23/24 10:00 08/24/24 07:55 40 MG Fentanyl Citrate 250 ml @ 2.5 mls/hr Q24H IV 08/22/24 12:15 08/25/24 03:39 50 MLS/HR Dextrose/Sodium Chloride 1,000 ml @ 75 mls/hr [id number] IV 08/22/24 19:00 08/25/24 00:35 75 MLS/HR Acetaminophen 1,000 mg Q6HPRN PRN IV 08/22/24 23:15 08/25/24 00:11 1,000 MG Meropenem 50 ml @ 17 mls/hr Q8H IV 08/23/24 13:00 08/25/24 05:01 17 MLS/HR Micafungin Sodium 100 mg/Sodium Chloride 100 ml @ 100 mls/hr DAILY IV 08/24/24 10:00 08/24/24 09:53 100 MLS/HR Hydromorphone HCl 1.5 mg Q3HPRN PRN IV 08/24/24 10:30 08/25/24 06:16 1.5 MG Rocuronium [place] 50 mg Q3HR PRN IV 08/24/24 10:30 08/25/24 06:08 50 MG Sodium Chloride 60 meq/Calcium Gluconate 2.3 meq/ Magnesium Sulfate 20 meq/ Multivitamins 10 ml/Chromium/ Copper/Manganese/ Zinc 1 ml/Amino Acids/Dextrose 1,035.9462 ml @ 43 mls/hr Q24H6M IV 08/24/24 22:00 08/25/24 19:59 08/24/24 21:30 43 MLS/HR Rocuronium [place] 1000 mg/ Dextrose 250 ml @ 10.08 mls/ hr Q24H IV 08/25/24 07:30 laboratory and microbiology Laboratory Tests 08/25/24 03:00 Test 08/25/24 03:00 Range/Units Serum Glucose 142 H 74-106 mg/dL Problem List/Assessment/Plan Problem List/Assessment/Plan 08/19/24 ABDOMINAL PRESXURE IMPROVED, DRESSING DRY, SEROUS DRAINAGE, WILL TAKE TO O.R. MONDAY TO LAVAGE AND RE DRESS, POSSIBLY PLACE FASCIAL SUTURES 08/22/24 ABDOMEN LESS TENSE, DRESSING APPLIED, WILL CONSIDER CLOSURE OF ABDOMEN SOON. 08/23/24 abdomen still quite tense, leukocytosis, fever, urine output adequate, needs to have abdominal pressure determined q 6 hours(informed nurse), possibly return to OR on Monday to close the abdomen if pressures normal. 08/25/24 ABDOMINAL PRESSURE 7, LEUKOCYTOSIS AND FEVER PERSIST, WILL ATTEMPT ABDOMINAL CLOSURE TOMORROW Plan discussed with: Other Dietary Evaluation Review Comments: 1) Increase TPN to meet at least 75% of estimated needs 2) Advance pt diet when medically feasible to a Low Fat diet 3) Continue current plan of care Expected Outcomes/Goals: 1) Pt diet to advance 2) Pt labs to improve 3) F/U in 2-3 days MARILYN OJEDA MD Aug 25, 2024 07:35
[2024-08-25] MEDS: ROCURONIUM 10MG/ML 10ML VIAL IV ONE (08:03)
[2024-08-25] MEDS: LORazepam 2MG/ML-1ML VIAL ONE (08:08)
[2024-08-25] MEDS: ROCURONIUM BROMIDE 1,000 MG in D5W 5% 150 ML IV SCH (08:22)
[2024-08-25 08:42] LABS: Base Excess 2.1 mmol/L (-2.0-3.0)
[2024-08-25] MEDS: LORazepam 2MG/ML-1ML VIAL IV ONE (08:50)
--- NOTE | 2024-08-25 08:57 | DVHPN2 ---
Subjective Chemically sedated Reviewed: Care Plan, H&P, Labs, Medications Changes from previous H/P or p: No Changes General: Per HPI Eyes: No Pain, No Vision change, No Conjunctivae inflammation, No Eyelid inflammation, No Other, No Redness ENT: No Ear pain, No Ear discharge, No Nose pain, No Nose discharge, No Nose congestion, No Mouth pain, No Mouth swelling, No Throat pain, No Throat swelling, No Other Cardiovascular: No Chest Pain, No Palpitations, No Orthopnea, No Paroxysmal Noc. Dyspnea, No Edema, No Lt Headedness, No Other Respiratory: No Cough, No Dry, No Shortness of breath, No SOB with excertion, No Wheezing, No Hemoptysis, No Pleuritic Pain, No Sputum, No Other Gastrointestinal: Nausea, Vomiting, Abdominal Pain, Diarrhea Genitourinary: No Dysuria, No Frequency, No Incontinence, No Hematuria, No Retention, No Other Musculoskeletal: No other, No neck pain, No shoulder pain, No arm pain, No back pain, No hand pain, No leg pain, No foot pain Skin: No Rash, No Lesions, No Jaundice, No Bruising, No Other Objective Vitals Vital Signs Date Time Temp Pulse Resp B/P (MAP) Pulse Ox O2 Delivery O2 Flow Rate FiO2 08/25/24 08:11 132 35 179/97 (124) 96 30 08/25/24 07:30 101.1 214.0 08/25/24 06:00 Mechanical Ventilator+ Intake/Output Intake and Output 08/25/24 07:00 Intake Total 5679.392 ml Output Total 5035 ml Balance 644.392 ml IV Total 5679.392 ml Output Urine Total 4095 ml Gastric Drainage Total 550 ml Drainage Total 390 ml General Appearance: severe distress HEENT: Atraumatic, PERRLA Lungs: Clear to auscultation, Normal air movement, Other (Mechanical ventilation) Cardiovascular: Normal S1, Normal S2 Abdomen: Other (Hypoactive bowel sounds. Greater than serosanguineous drainage. SOLIS drain x 2. ) Musculoskeletal: Normal motor function Medications Current Medications Medications Dose Ordered Sig/Snow Route Start Time Stop Time Status Last Admin Dose Admin Sodium Chloride 10 ml Q8HR IV 08/14/24 22:00 08/25/24 08:03 10 ML Pantoprazole Sodium 40 mg DAILY IV 08/15/24 10:00 08/25/24 07:49 40 MG Ergocalciferol 50,000 unit Q7D PO 08/15/24 10:00 08/15/24 08:53 50,000 UNIT Dextrose 50 ml UD PRN IV 08/15/24 12:45 Midazolam HCl 50 ml @ 1 mls/hr Q24H IV 08/16/24 11:30 08/25/24 06:59 15 MLS/HR Linezolid 300 ml @ 150 mls/hr Q12HR IV 08/16/24 13:00 08/25/24 07:49 150 MLS/HR Dexmedetomidine HCl 400 mcg/ Dextrose 100 ml @ 3.695 mls/ hr Q24H IV 08/17/24 02:45 08/24/24 21:11 12.933 MLS/HR Acetaminophen 650 mg Q8HPRN PRN [place] 08/17/24 04:15 08/22/24 14:10 650 MG Calcitriol 1 mcg EOD IV 08/17/24 10:00 08/25/24 07:49 1 MCG Norepinephrine Bitartrate 250 ml @ 3.75 mls/hr Q24H IV 08/17/24 09:30 08/19/24 11:29 7.5 MLS/HR Amino Acids 0 ml @ 0 mls/hr PER PHARMACY IV 08/19/24 14:45 Sodium Chloride 10 ml QSHIFT@10,22 IV 08/19/24 22:00 08/25/24 07:01 10 ML Insulin Human (Reg)/Sodium Chloride 100 ml 1945 IV 08/21/24 19:45 UNV Diagnostic Test (Pha) 1 strip Q2HR 08/22/24 10:00 08/25/24 08:26 1 STRIP Insulin Human (Reg)/Sodium Chloride 100 ml @ 0.5 mls/hr Q24H IV 08/22/24 09:30 08/22/24 21:03 0.5 MLS/HR Furosemide 40 mg DAILY IV 08/23/24 10:00 08/25/24 07:49 40 MG Fentanyl Citrate 250 ml @ 2.5 mls/hr Q24H IV 08/22/24 12:15 08/25/24 08:26 50 MLS/HR Dextrose/Sodium Chloride 1,000 ml @ 75 mls/hr [id number] IV 08/22/24 19:00 08/25/24 00:35 75 MLS/HR Acetaminophen 1,000 mg Q6HPRN PRN IV 08/22/24 23:15 08/25/24 00:11 1,000 MG Meropenem 50 ml @ 17 mls/hr Q8H IV 08/23/24 13:00 08/25/24 05:01 17 MLS/HR Micafungin Sodium 100 mg/Sodium Chloride 100 ml @ 100 mls/hr DAILY IV 08/24/24 10:00 08/25/24 07:48 100 MLS/HR Hydromorphone HCl 1.5 mg Q3HPRN PRN IV 08/24/24 10:30 08/25/24 06:16 1.5 MG Rocuronium [place] 50 mg Q3HR PRN IV 08/24/24 10:30 08/25/24 06:08 50 MG Sodium Chloride 60 meq/Calcium Gluconate 2.3 meq/ Magnesium Sulfate 20 meq/ Multivitamins 10 ml/Chromium/ Copper/Manganese/ Zinc 1 ml/Amino Acids/Dextrose 1,035.9462 ml @ 43 mls/hr Q24H6M IV 08/24/24 22:00 08/25/24 19:59 08/24/24 21:30 43 MLS/HR Rocuronium [place] 1000 mg/ Dextrose 250 ml @ 10.08 mls/ hr Q24H IV 08/25/24 07:30 08/25/24 08:22 10.08 MLS/HR Propofol 100 ml @ 2.52 mls/hr Q24H IV 08/25/24 08:45 UNV Laboratory Results Laboratory Tests 08/25/24 03:00 Chemistry Test 08/25/24 03:00 Albumin 2.6 g/dL (3.2-4.8) L Calcium Level 8.5 mg/dL (8.7-10.4) L Magnesium Level 1.8 mg/dL (1.6-2.6) Phosphorus Level 4.3 mg/dL (2.4-5.1) Total Protein 4.5 g/dL (5.7-8.2) L Lipid panel Test 08/25/24 03:00 Lipase 26 U/L (12-53) Triglycerides Level 301 mg/dL (< 150) H LFT Test 08/25/24 03:00 Alanine Aminotransferase (ALT) 12 U/L (7-40) Alkaline Phosphatase 51 U/L (46-116) Aspartate Amino Transferase (AST) 30 U/L (13-40) Total Bilirubin 0.5 mg/dL (0.2-1.0) Urinalysis Test 08/14/24 12:07 08/16/24 12:55 Urine Color Colorless (Yellow) Urine Clarity Clear (Clear) Urine pH 5.5 (5.0-9.0) Urine Specific [place] 1.013 (1.001-1.035) Urine Protein Negative (Negative) Urine Ketones Negative (Negative) Urine Blood 1+ /uL (Negative) H Urine Nitrite Negative (Negative) Urine Bilirubin Negative (Negative) Urine Urobilinogen Normal mg/dL (Negative) Urine Leukocyte Esterase Negative /uL (Negative) Urine RBC 3 /hpf (0 - 4) Urine WBC <1 /hpf (0 - 5) Urine Squamous Epithelial Cells Few /hpf (<5) Urine Bacteria Few /hpf (None Seen) H Urine Glucose Normal mg/dL (Normal) Urine Creatinine 242.96 mg/dL (30.0-125.0) H Urine Protein/Creatinine Ratio 1.09 Urine Sodium 13 mmol/L (40-220) L Urine Total Protein 265.4 mg/dL (1-14) H Blood Gas Results Test 08/25/24 08:39 Arterial Blood pH 7.419 (7.350-7.450) FiO2 % 30.0 Microbiology Microbiology Date/Time Source Procedure Growth Status 08/16/24 11:57 Sputum Gram Stain - Final Complete 08/16/24 11:57 Respiratory Culture - Final Beta Strep Non-A, Non-B Complete 08/16/24 01:00 Urine - Midstream Clean Catch Urine Culture - Final Complete 08/15/24 13:32 Nose MRSA Screen - Final Complete 08/15/24 10:33 Blood Blood Culture - Final NO GROWTH AFTER 5 DAYS OF INCUBATION. Complete Labs and/or images reviewed: Labs reviewed by me, Image(s) reviewed by me Assessment/Plan Assessment/Plan Impression: -acute pancreatitis secondary to hypertriglyceridemia -abdominal compartment syndrome -acute hypoxic respiratory failure -anemia -gap acidosis -ascites -pleural effusions -sepsis Plan: Events: Patient was assessed to be awake despite being maxed out on multiple continuous infusions sedatives and narcotics. General surgeon assessed patient and is requesting continuous paralytic drip. Patient was given IV push Dilaudid and Ativan to call her lack of sedation. Discussed case with pharmacy who will hold lipids and TPN. Patient will be started on propofol drip prior to starting rocuronium. -continue insulin drip -continue current sedation -patient is status post exploratory laparotomy with open abdomen, continued increased abdominal pressures at 15 mmhg -continue TPN -q.2 hours Accu-Cheks -pain management: Increase Dilaudid -patient with persistent fevers over the past 24 hours. White blood cell count also elevated. Continue current antibiotic therapy, add micafungin. Repeat blood cultures -PUD, DVT prophylaxis -surgical consultation: Plans for possible returned to OR this coming Monday -repeat labs, ABG in a.m. Critical care time spent with patient discussing and formulating plan of care: 40 minutes. This does not include time spent performing procedures. This medical document was created using an electronic medical record system with [employer] dictation system. Although this document has been carefully reviewed, there may still be some phonetic and typographical errors. These areas are purely typographical due to imperfections of the software programs, and do not reflect any compromise in the patient's medical care. Plan discussed with: Patient, Other (RN) My Orders Orders - LAURA TAYLOR NP Procedure Category Date Status Time Hydromorphone PHA 08/24/24 In Process Injection (Dilaudid 10:30 Rocuronium [place] PHA 08/24/24 In Process 10:30 Lorazepam 2mg/Ml Inj PHA 08/25/24 Logged (Ativan Inj) 08:45 Propofol (Diprivan) PHA 08/25/24 Logged 08:45 Rass Sedation Scale CARLITA 08/25/24 In Process 08:40 Date of Service: Aug 25, 2024 Billing Provider: LAURA TAYLOR NP Common Visit Codes: [id number] CARE 30-74 MIN LAURA TAYLOR NP Aug 25, 2024 08:57
[2024-08-25] MEDS: PROPOFOL 100 ML IV SCH (09:01)
[2024-08-25] MEDS: hydrALAZINE HCL 20 MG/ML VL IV PRN (17:48)
--- NOTE | 2024-08-25 21:28 | DVHPN2 ---
Progress Note - Dictate Date Seen: Aug 25, 2024 Has the PT tested + for MRSA If YES, has PT been informed?: No Medical Necessity Reason Pt with a Central, PICC or Fol: Yes The following are medically ne: Central Line, Gutierrez Catheter Reason for gutierrez catheter: Strict I&O Subjective Patient seen and examined at bedside. Sedated, intubated on mechanical ventilator. Overnight events reviewed. vital signs Vital Sign Date Time Temp Pulse Resp B/P (MAP) Pulse Ox O2 Delivery O2 Flow Rate FiO2 08/25/24 20:30 161/102 08/25/24 20:30 92 23 100 30 08/25/24 18:45 96.8 206.2 08/25/24 17:55 Mechanical Ventilator+ Total Intake and Output 08/24/24 08/24/24 08/25/24 15:00 23:00 07:00 Intake Total 2180.464 ml 1627.464 ml 1871.464 ml Output Total 3280 ml 1755 ml Balance 2180.464 ml -1652.536 ml 116.464 ml medications Current Medications Medications Dose Ordered Sig/Snow Route Start Time Stop Time Status Last Admin Dose Admin Sodium Chloride 10 ml Q8HR IV 08/14/24 22:00 08/25/24 08:03 10 ML Pantoprazole Sodium 40 mg DAILY IV 08/15/24 10:00 08/25/24 07:49 40 MG Ergocalciferol 50,000 unit Q7D PO 08/15/24 10:00 08/15/24 08:53 50,000 UNIT Dextrose 50 ml UD PRN IV 08/15/24 12:45 Midazolam HCl 50 ml @ 1 mls/hr Q24H IV 08/16/24 11:30 08/25/24 19:49 15 MLS/HR Linezolid 300 ml @ 150 mls/hr Q12HR IV 08/16/24 13:00 08/25/24 07:49 150 MLS/HR Dexmedetomidine HCl 400 mcg/ Dextrose 100 ml @ 3.695 mls/ hr Q24H IV 08/17/24 02:45 08/25/24 18:06 12.933 MLS/HR Acetaminophen 650 mg Q8HPRN PRN [place] 08/17/24 04:15 08/22/24 14:10 650 MG Calcitriol 1 mcg EOD IV 08/17/24 10:00 08/25/24 07:49 1 MCG Norepinephrine Bitartrate 250 ml @ 3.75 mls/hr Q24H IV 08/17/24 09:30 08/19/24 11:29 7.5 MLS/HR Amino Acids 0 ml @ 0 mls/hr PER PHARMACY IV 08/19/24 14:45 Sodium Chloride 10 ml QSHIFT@10,22 IV 08/19/24 22:00 08/25/24 07:01 10 ML Insulin Human (Reg)/Sodium Chloride 100 ml 1945 IV 08/21/24 19:45 UNV Diagnostic Test (Pha) 1 strip Q2HR 08/22/24 10:00 08/25/24 19:59 1 STRIP Insulin Human (Reg)/Sodium Chloride 100 ml @ 0.5 mls/hr Q24H IV 08/22/24 09:30 08/22/24 21:03 0.5 MLS/HR Furosemide 40 mg DAILY IV 08/23/24 10:00 08/25/24 07:49 40 MG Fentanyl Citrate 250 ml @ 2.5 mls/hr Q24H IV 08/22/24 12:15 08/25/24 17:47 50 MLS/HR Dextrose/Sodium Chloride 1,000 ml @ 75 mls/hr [id number] IV 08/22/24 19:00 08/25/24 15:54 75 MLS/HR Acetaminophen 1,000 mg Q6HPRN PRN IV 08/22/24 23:15 08/25/24 09:05 1,000 MG Meropenem 50 ml @ 17 mls/hr Q8H IV 08/23/24 13:00 08/25/24 21:07 17 MLS/HR Micafungin Sodium 100 mg/Sodium Chloride 100 ml @ 100 mls/hr DAILY IV 08/24/24 10:00 08/25/24 07:48 100 MLS/HR Hydromorphone HCl 1.5 mg Q3HPRN PRN IV 08/24/24 10:30 08/25/24 16:37 1.5 MG Rocuronium [place] 50 mg Q3HR PRN IV 08/24/24 10:30 08/25/24 06:08 50 MG Rocuronium [place] 1000 mg/ Dextrose 250 ml @ 10.08 mls/ hr Q24H IV 08/25/24 07:30 08/25/24 08:22 10.08 MLS/HR Propofol 100 ml @ 2.52 mls/hr Q24H IV 08/25/24 08:45 08/25/24 17:33 7.56 MLS/HR Sodium Acetate 60 meq/Potassium Acetate 40 meq/ Potassium Phosphate 22 meq/ Calcium Gluconate 2.3 meq/Magnesium Sulfate 24 meq/ Multivitamins 10 ml/Chromium/ Copper/Manganese/ Zinc 1 ml/Amino Acids/Dextrose 1,176.9462 ml @ 49 mls/hr Q24H2M IV 08/25/24 22:00 08/26/24 19:59 Hydralazine HCl 10 mg Q6HP PRN IV 08/25/24 17:30 08/25/24 17:48 10 MG objective Gen.: Patient lying in bed in medical ICU. Sedated, intubated on mechanical ventilator. Head: Normocephalic, atraumatic. Eyes: PERRLA. Ears: Normal external anatomy. Throat: Endotracheal tube and orogastric tube in place. Neck: Supple, trachea midline. Chest: Transmitted breath sounds bilaterally. Decreased air entry bilaterally. No wheezing. Bibasilar crackles. Cardiovascular: Positive S1, positive S2. Regular rate and rhythm. Abdomen: Positive bowel sounds in all 4 quadrants. Soft, nontender, nondistended. : Gutierrez in place. Normal external genitalia. Rectal: Deferred. Skin: Warm, dry. Intact. Extremities: 2+ radial pulses bilaterally. No lower extremity edema. Neuro: Sedated. laboratory and microbiology Laboratory Tests 08/25/24 03:00 Test 08/25/24 03:00 Range/Units Serum Glucose 142 H 74-106 mg/dL Assessment/Plan Impression: Acute hypoxic respiratory failure On mechanical ventilator Hypertriglyceridemia induced acute pancreatitis Hypocalcemia Hypophosphatemia Peritonitis Acute abdomen Ascites Hyponatremia due to hypotonic IV fluid Vitamin-D deficiency Hypomagnesemia Hyperparathyroidism immune Tenriism diffuse plasmapheresis Lactic acidosis, improving Events: Remains on vent support On assist control mode with respiratory rate of 22, tidal volume 450, PEEP of 5, FiO2 of 30%. Started Rocuronium drip. Sedated on Fentanyl, Versed, Propofol. On Precedex drip Continue antibiotics Patient awaiting surgical procedure in AM. Hydralazine 10 mg q.6 hours PRN SBP >160 mmHg Insulin drip TPN for nutritional support IV fluids with D5-NS. Wound care Surgery recommendations appreciated. Monitor hemoglobin Diurese w/ Lasix as tolerated Monitor renal function Labs and imaging reviewed. Rest of plan as noted below. Plan: s/p intubation on mechanical ventilator On assist control mode with respiratory rate of 22, tidal volume 450, PEEP of 5, FiO2 of 30%. Titrate FIO2 to keep O2 saturation above 92%. VAP bundle Daily ABG and CXR while intubated. Sedate for ventilatory synchrony: On fentanyl and Versed drips. Start pressors for hemodynamic support if necessary. Keep MAP above 65 mmHg/SBP above 90 mmHg. Continue broad spectrum antibiotics. F/u cultures. Monitor renal function due to Acute kidney injury. Monitor electrolytes. Supplement as necessary. Received calcium gluconate Potassium, calcium and magnesium were supplemented. Continue IV fluids Accu-cheks, on insulin drip. Abdomen was severely distended. Limited ultrasound of the abdomen revealed no pocket amenable for paracentesis. Recommended for RN to check bladder pressure every 6 hours. Currently it was 16 mmHg. Surgery recommendations appreciated - we will consider emergent surgery if abdominal pressures exceeding 25 mmHg. GI/DVT prophylaxis. Condition: Critical Prognosis: Poor given multiple comorbidities. Rest of plan per hospitalist and other consultants. A total of 35 minutes of critical care time was spent reviewing the patient record, examining the patient, making a diagnostic and therapeutic plan, discussing this plan with the medical personnel, following up on diagnostic studies and following the patient for clinical stability excluding any and all procedures. At least 50% of this time was spent in direct, [id number] contact. Thank you Dr. Bedolla for allowing me to participate in this patient's care. Further recommendations will depend on patient's clinical course. Please do not hesitate to contact me if you have any questions or concerns. This medical document was created using an electronic medical record system with [employer] system. Although this document has been carefully reviewed, there may still be some phonetic and typographical errors. These areas are purely typographical due to imperfections of the software programs, and do not reflect any compromise in the patient's medical care. Dietary Evaluation Review Comments: 1) Increase TPN to meet at least 75% of estimated needs 2) Advance pt diet when medically feasible to a Low Fat diet 3) Continue current plan of care Expected Outcomes/Goals: 1) Pt diet to advance 2) Pt labs to improve 3) F/U in 2-3 days Plan discussed with: Other (ANDRES Jensen) Critical Care Time(min): 35 JUDE REN MD Aug 25, 2024 21:28
[2024-08-25] MEDS: TPN PER PHARMACY IV NR (22:34)
[2024-08-26] VITALS (103 sets, daily range): BP systolic 119–199; BP diastolic 65–122; PULSE 77–134; RESP 19–32; TEMP 95.7–99.7; O2SAT 91–100
[2024-08-26] MEDS: POTASSIUM CHL 20MEQ/100ML 100 ML IV ONE ×2 (03:07→12:53)
--- NOTE | 2024-08-26 04:00 | DVH ---
CHEST RADIOGRAPH Indication:intubated/ pre-surgery Technique: Single frontal view of the chest was obtained Comparison: XY CHEST XRAY 1 VIEW on DOS: 08/25/24, XY CHEST XRAY 1 VIEW on DOS: 08/24/24, XY CHEST XR AY 1 VIEW on DOS: 08/23/24, XY CHEST XRAY 1 VIEW on DOS: 08/22/24, XY CHEST XRAY 1 VIEW on DOS: 08/21, XY CHEST XRAY 1 VIEW on DOS: 08/25/24 FINDINGS: Lines and Tubes: Endotracheal tube and enteric catheter in satisfactory position. Right central venou s catheter in satisfactory position. Lungs: Low lung volumes. Pleura : No effusion. No pneumothorax. Cardiomediastinal contours: Unremarkable Bones: Unremarkable IMPRESSION: 1. No significant change compared to prior exam.
[2024-08-26 04:19] LABS: Hematocrit 31.5 % (36.0-46.0); Hemoglobin 10.6 g/dL (12.2-16.2); Mean Corpuscular Hemoglobin 29.7 pg (28.0-32.0); Mean Corpuscular Hgb Conc. 33.7 g/dL (32.0-36.0); Platelet Count (auto) 204 10^3/uL (140-450); Red Blood Cells 3.57 10^6/uL (4.0-5.20); White Blood Cell 16.2 10^3/uL (4.4-10.8)
[2024-08-26 04:32] LABS: INR 1.24 (0.9-1.15); Partial Thromboplastin Time 31.9 SEC (24.5-34.5); Prothrombin Time 12.9 sec (9.3-11.8)
[2024-08-26 04:37] LABS: Alanine Aminotransferase 11 U/L (7-40); Albumin 2.9 g/dL (3.2-4.8); Alkaline Phosphatase 66 U/L (46-116); Anion Gap 9 (5-15); Aspartate Aminotransferase 32 U/L (13-40); BUN/Creatinine Ratio 21.5 (10.0-20.0); Blood Urea Nitrogen 17 mg/dL (9-23); Calcium 8.9 mg/dL (8.7-10.4); Carbon Dioxide 25 mmol/L (20-31); Chloride 104 mmol/L (98-107); Glucose 157 mg/dL (74-106); Potassium 3.4 mmol/L (3.5-5.1); Sodium 138 mmol/L (136-145); Triglycerides 436 mg/dL (< 150)
[2024-08-26 04:38] LABS: Basophils % (manual) 0 (0.0-2.0); Bilirubin, Total 0.4 mg/dL (0.2-1.0); Blast Cells 0; Phosphorus 4.4 mg/dL (2.4-5.1); Promyelocytes % 0; Reactive Lymphocytes 0; Total Protein 5.4 g/dL (5.7-8.2)
[2024-08-26 05:37] LABS: Band Neutrophils % (manual) 5; Eosinophils % (manual) 1 (0-7); Lymphocytes % (manual) 7 (10.0-50.0); Metamyelocytes % 1; Monocytes % (manual) 2 (0-12); Myelocytes % 1
[2024-08-26 05:38] LABS: Platelet Estimate Adequate
[2024-08-26 07:47] LABS: Base Excess -0.6 mmol/L (-2.0-3.0)
[2024-08-26] MEDS ORDERED: MIDAZOLAM HCL 2MG/2ML 2ml VIAL (1mg/ml) ONE (09:47)
[2024-08-26] MEDS ORDERED: ROCURONIUM 10MG/ML 10ML VIAL IV ONE (09:47)
[2024-08-26] MEDS ORDERED: HYDROmorphone HCL 2 MG/ML VL/or syr ONE (09:47)
[2024-08-26] MEDS ORDERED: fentaNYL CITRATE 100 MCG/2 ML VL ONE ×2 (09:47)
--- NOTE | 2024-08-26 10:48 | DVHPN2 ---
Subjective Chemically sedated Reviewed: Care Plan, H&P, Labs, Medications Changes from previous H/P or p: No Changes General: Per HPI Eyes: No Pain, No Vision change, No Conjunctivae inflammation, No Eyelid inflammation, No Other, No Redness ENT: No Ear pain, No Ear discharge, No Nose pain, No Nose discharge, No Nose congestion, No Mouth pain, No Mouth swelling, No Throat pain, No Throat swelling, No Other Cardiovascular: No Chest Pain, No Palpitations, No Orthopnea, No Paroxysmal Noc. Dyspnea, No Edema, No Lt Headedness, No Other Respiratory: No Cough, No Dry, No Shortness of breath, No SOB with excertion, No Wheezing, No Hemoptysis, No Pleuritic Pain, No Sputum, No Other Gastrointestinal: Nausea, Vomiting, Abdominal Pain, Diarrhea Genitourinary: No Dysuria, No Frequency, No Incontinence, No Hematuria, No Retention, No Other Musculoskeletal: No other, No neck pain, No shoulder pain, No arm pain, No back pain, No hand pain, No leg pain, No foot pain Skin: No Rash, No Lesions, No Jaundice, No Bruising, No Other Objective Vitals Vital Signs Date Time Temp Pulse Resp B/P (MAP) Pulse Ox O2 Delivery O2 Flow Rate FiO2 08/26/24 09:37 30 08/26/24 09:37 22 98 Mechanical Ventilator+ 08/26/24 09:36 80 08/26/24 09:30 97.7 119/65 (83) 207.9 Intake/Output Intake and Output 08/26/24 07:00 Intake Total 5913.146 ml Output Total 3915 ml Balance 1998.146 ml Intake Oral 0 ml IV Total 5913.146 ml Output Urine Total 3300 ml Gastric Drainage Total 400 ml Drainage Total 215 ml General Appearance: moderate distress HEENT: Atraumatic, PERRLA Lungs: Clear to auscultation, Normal air movement, Other (Mechanical ventilation) Cardiovascular: Normal S1, Normal S2 Abdomen: Other (Hypoactive bowel sounds. Greater than serosanguineous drainage. SOLIS drain x 2. ) Musculoskeletal: Other (Unable to assess) Psych/Mental Status: Other (Unable to assess) Medications Current Medications Medications Dose Ordered Sig/Snow Route Start Time Stop Time Status Last Admin Dose Admin Sodium Chloride 10 ml Q8HR IV 08/14/24 22:00 08/26/24 06:00 10 ML Pantoprazole Sodium 40 mg DAILY IV 08/15/24 10:00 08/26/24 09:04 40 MG Ergocalciferol 50,000 unit Q7D PO 08/15/24 10:00 08/15/24 08:53 50,000 UNIT Dextrose 50 ml UD PRN IV 08/15/24 12:45 Midazolam HCl 50 ml @ 1 mls/hr Q24H IV 08/16/24 11:30 08/26/24 07:57 15 MLS/HR Linezolid 300 ml @ 150 mls/hr Q12HR IV 08/16/24 13:00 08/25/24 22:33 150 MLS/HR Dexmedetomidine HCl 400 mcg/ Dextrose 100 ml @ 3.695 mls/ hr Q24H IV 08/17/24 02:45 08/26/24 03:15 12.933 MLS/HR Acetaminophen 650 mg Q8HPRN PRN GA 08/17/24 04:15 08/22/24 14:10 650 MG Calcitriol 1 mcg EOD IV 08/17/24 10:00 08/25/24 07:49 1 MCG Norepinephrine Bitartrate 250 ml @ 3.75 mls/hr Q24H IV 08/17/24 09:30 08/19/24 11:29 7.5 MLS/HR Amino Acids 0 ml @ 0 mls/hr PER PHARMACY IV 08/19/24 14:45 Sodium Chloride 10 ml QSHIFT@10,22 IV 08/19/24 22:00 08/26/24 09:05 10 ML Insulin Human (Reg)/Sodium Chloride 100 ml 1945 IV 08/21/24 19:45 UNV Diagnostic Test (Pha) 1 strip Q2HR 08/22/24 10:00 08/26/24 08:05 1 STRIP Insulin Human (Reg)/Sodium Chloride 100 ml @ 0.5 mls/hr Q24H IV 08/22/24 09:30 08/26/24 01:40 0.5 MLS/HR Furosemide 40 mg DAILY IV 08/23/24 10:00 08/26/24 09:04 40 MG Fentanyl Citrate 250 ml @ 2.5 mls/hr Q24H IV 08/22/24 12:15 08/26/24 08:00 50 MLS/HR Dextrose/Sodium Chloride 1,000 ml @ 75 mls/hr [id number] IV 08/22/24 19:00 08/26/24 03:55 75 MLS/HR Acetaminophen 1,000 mg Q6HPRN PRN IV 08/22/24 23:15 08/25/24 09:05 1,000 MG Meropenem 50 ml @ 17 mls/hr Q8H IV 08/23/24 13:00 08/26/24 05:25 17 MLS/HR Micafungin Sodium 100 mg/Sodium Chloride 100 ml @ 100 mls/hr DAILY IV 08/24/24 10:00 08/26/24 09:01 100 MLS/HR Hydromorphone HCl 1.5 mg Q3HPRN PRN IV 08/24/24 10:30 08/25/24 16:37 1.5 MG Rocuronium [place] 50 mg Q3HR PRN IV 08/24/24 10:30 08/25/24 06:08 50 MG Rocuronium [place] 1000 mg/ Dextrose 250 ml @ 10.08 mls/ hr Q24H IV 08/25/24 07:30 08/26/24 08:05 8.064 MLS/HR Propofol 100 ml @ 2.52 mls/hr Q24H IV 08/25/24 08:45 08/26/24 06:34 7.56 MLS/HR Sodium Acetate 60 meq/Potassium Acetate 40 meq/ Potassium Phosphate 22 meq/ Calcium Gluconate 2.3 meq/Magnesium Sulfate 24 meq/ Multivitamins 10 ml/Chromium/ Copper/Manganese/ Zinc 1 ml/Amino Acids/Dextrose 1,176.9462 ml @ 49 mls/hr Q24H2M IV 08/25/24 22:00 08/26/24 19:59 08/25/24 22:34 49 MLS/HR Hydralazine HCl 10 mg Q6HP PRN IV 08/25/24 17:30 08/26/24 03:07 10 MG Laboratory Results Laboratory Tests 08/26/24 03:11 Chemistry Test 08/26/24 03:11 Albumin 2.9 g/dL (3.2-4.8) L Calcium Level 8.9 mg/dL (8.7-10.4) Magnesium Level 2.0 mg/dL (1.6-2.6) Phosphorus Level 4.4 mg/dL (2.4-5.1) Total Protein 5.4 g/dL (5.7-8.2) L Coagulation Test 08/26/24 03:11 Prothrombin Time 12.9 sec (9.3-11.8) H Prothrombin Time INR 1.24 (0.9-1.15) H Activated Partial Thromboplast Time 31.9 SEC (24.5-34.5) Lipid panel Test 08/26/24 03:11 Triglycerides Level 436 mg/dL (< 150) H LFT Test 08/26/24 03:11 Alanine Aminotransferase (ALT) 11 U/L (7-40) Alkaline Phosphatase 66 U/L (46-116) Aspartate Amino Transferase (AST) 32 U/L (13-40) Total Bilirubin 0.4 mg/dL (0.2-1.0) Urinalysis Test 08/14/24 12:07 08/16/24 12:55 Urine Color Colorless (Yellow) Urine Clarity Clear (Clear) Urine pH 5.5 (5.0-9.0) Urine Specific Black 1.013 (1.001-1.035) Urine Protein Negative (Negative) Urine Ketones Negative (Negative) Urine Blood 1+ /uL (Negative) H Urine Nitrite Negative (Negative) Urine Bilirubin Negative (Negative) Urine Urobilinogen Normal mg/dL (Negative) Urine Leukocyte Esterase Negative /uL (Negative) Urine RBC 3 /hpf (0 - 4) Urine WBC <1 /hpf (0 - 5) Urine Squamous Epithelial Cells Few /hpf (<5) Urine Bacteria Few /hpf (None Seen) H Urine Glucose Normal mg/dL (Normal) Urine Creatinine 242.96 mg/dL (30.0-125.0) H Urine Protein/Creatinine Ratio 1.09 Urine Sodium 13 mmol/L (40-220) L Urine Total Protein 265.4 mg/dL (1-14) H Blood Gas Results Test 08/26/24 07:38 Arterial Blood pH 7.399 (7.350-7.450) FiO2 % 30.0 Microbiology Microbiology Date/Time Source Procedure Growth Status 08/24/24 08:40 Blood Blood Culture - Preliminary NO GROWTH AFTER 48 HOURS OF INCUBATION. Resulted 08/16/24 11:57 Sputum Gram Stain - Final Complete 08/16/24 11:57 Respiratory Culture - Final Beta Strep Non-A, Non-B Complete 08/16/24 01:00 Urine - Midstream Clean Catch Urine Culture - Final Complete 08/15/24 13:32 Nose MRSA Screen - Final Complete Labs and/or images reviewed: Labs reviewed by me, Image(s) reviewed by me Assessment/Plan Assessment/Plan Impression: -acute pancreatitis secondary to hypertriglyceridemia -abdominal compartment syndrome -acute hypoxic respiratory failure -anemia -gap acidosis -ascites -pleural effusions -sepsis Plan: Events: Patient appropriately sedated, paralyzed. Hemodynamically stable. Plans to return to OR today. -continue insulin drip -continue current sedation -patient is status post exploratory laparotomy with open abdomen, continued increased abdominal pressures at 15 mmhg -continue TPN -q.2 hours Accu-Cheks -pain management: Continue fentanyl drip -surgical consultation: Recommendations reviewed -repeat labs,, chest x-ray, ABG in a Critical care time spent with patient discussing and formulating plan of care: 40 minutes. This does not include time spent performing procedures. This medical document was created using an electronic medical record system with [employer] dictation system. Although this document has been carefully reviewed, there may still be some phonetic and typographical errors. These areas are purely typographical due to imperfections of the software programs, and do not reflect any compromise in the patient's medical care. Plan discussed with: Patient, Other (RN) My Orders Orders - LAURA TAYLOR NP Procedure Category Date Status Time Potassium Chl Ryan PHA 08/26/24 Verified KCL 10:45 Triglycerides LAB 08/27/24 Verified 04:00 Date of Service: Aug 26, 2024 Billing Provider: LAURA TALYOR NP Common Visit Codes: [id number] CARE 30-74 MIN LAURA TAYLOR NP Aug 26, 2024 10:48
[2024-08-26] MEDS ORDERED: DexAMETHasone SOD PHOS 10MG/1ML VIAL INJ IV ONE (11:33)
[2024-08-26] MEDS: PROPOFOL 100 ML IV SCH (14:17)
--- NOTE | 2024-08-26 14:48 | DVHOP ---
DATE OF SURGERY: 08/26/2024 PREOPERATIVE DIAGNOSES: Open abdomen due to compartment syndrome secondary to severe pancreatitis and abdominal hypertension. POSTOPERATIVE DIAGNOSIS: Decompressed abdomen. SURGEON: Sebastián Darby MD ANESTHESIA: General endotracheal. ANESTHESIOLOGIST: Dr. Ching. DESCRIPTION OF PROCEDURE: Under general anesthesia with the patient completely paralyzed using rocuronium drip with bolus, rocuronium doses, the patient's abdomen was prepped and draped and the previously placed plastic sheet and surgical sterile towels were removed. The abdomen was then profusely irrigated with 3 liters of saline, which was aspirated. The old drains were removed for fear of contamination and a new 10 mm Oseas-Carty drains were inserted. Following thorough irrigation of the now decompressed abdomen, the abdomen was closed using #1 double stranded PDS suture and retention sutures of #2 nylon sutures with bolsters. The subcutaneous tissues were then irrigated, irrigant was aspirated and metallic skin david used to approximate the skin loosely. There appeared to be no untoward events and the abdominal pressure appeared to be as was reported preoperatively ____ with no increase in abdominal pressure, the operation was terminated. Sterile dressings were placed and the patient left the operating room following an accurate needle and sponge count. Approximately 100 mL blood loss. Her father, Boyd was thoroughly informed by phone at [phone]. Sebastián Darby MD PF TID: [id number] RECEIPT: [id number]
[2024-08-26] MEDS: LABETALOL HCL 20 MG/4 ML VL IV PRN (19:45)
[2024-08-26] MEDS: TPN PER PHARMACY IV NR (21:41)
--- NOTE | 2024-08-26 22:18 | DVHPN2 ---
Progress Note - Dictate Date Seen: Aug 26, 2024 Has the PT tested + for MRSA If YES, has PT been informed?: No Medical Necessity Reason Pt with a Central, PICC or Fol: Yes The following are medically ne: Central Line, Gutierrez Catheter Reason for gutierrez catheter: Strict I&O Subjective Patient seen and examined at bedside. Sedated, intubated on mechanical ventilator. Overnight events reviewed. vital signs Vital Sign Date Time Temp Pulse Resp B/P (MAP) Pulse Ox O2 Delivery O2 Flow Rate FiO2 08/26/24 22:10 92 23 160/98 (118) 99 40 08/26/24 20:00 Mechanical Ventilator+ 08/26/24 20:00 99.3 210.7 Total Intake and Output 08/25/24 08/25/24 08/26/24 15:00 23:00 07:00 Intake Total 2138.384 ml 1671.045 ml 2103.717 ml Output Total 2425 ml 1490 ml Balance 2138.384 ml -753.955 ml 613.717 ml medications Current Medications Medications Dose Ordered Sig/Snow Route Start Time Stop Time Status Last Admin Dose Admin Sodium Chloride 10 ml Q8HR IV 08/14/24 22:00 08/26/24 21:41 10 ML Pantoprazole Sodium 40 mg DAILY IV 08/15/24 10:00 08/26/24 09:04 40 MG Ergocalciferol 50,000 unit Q7D PO 08/15/24 10:00 08/15/24 08:53 50,000 UNIT Dextrose 50 ml UD PRN IV 08/15/24 12:45 Midazolam HCl 50 ml @ 1 mls/hr Q24H IV 08/16/24 11:30 08/26/24 21:37 15 MLS/HR Linezolid 300 ml @ 150 mls/hr Q12HR IV 08/16/24 13:00 08/26/24 21:37 150 MLS/HR Dexmedetomidine HCl 400 mcg/ Dextrose 100 ml @ 3.695 mls/ hr Q24H IV 08/17/24 02:45 08/26/24 12:28 11.085 MLS/HR Acetaminophen 650 mg Q8HPRN PRN DC 08/17/24 04:15 08/22/24 14:10 650 MG Calcitriol 1 mcg EOD IV 08/17/24 10:00 08/25/24 07:49 1 MCG Norepinephrine Bitartrate 250 ml @ 3.75 mls/hr Q24H IV 08/17/24 09:30 08/19/24 11:29 7.5 MLS/HR Amino Acids 0 ml @ 0 mls/hr PER PHARMACY IV 08/19/24 14:45 Sodium Chloride 10 ml QSHIFT@10,22 IV 08/19/24 22:00 08/26/24 21:41 10 ML Insulin Human (Reg)/Sodium Chloride 100 ml 1945 IV 08/21/24 19:45 UNV Diagnostic Test (Pha) 1 strip Q2HR 08/22/24 10:00 08/26/24 21:41 1 STRIP Insulin Human (Reg)/Sodium Chloride 100 ml @ 0.5 mls/hr Q24H IV 08/22/24 09:30 08/26/24 01:40 0.5 MLS/HR Furosemide 40 mg DAILY IV 08/23/24 10:00 08/26/24 09:04 40 MG Fentanyl Citrate 250 ml @ 2.5 mls/hr Q24H IV 08/22/24 12:15 08/26/24 21:50 50 MLS/HR Dextrose/Sodium Chloride 1,000 ml @ 75 mls/hr [id number] IV 08/22/24 19:00 08/26/24 18:51 75 MLS/HR Acetaminophen 1,000 mg Q6HPRN PRN IV 08/22/24 23:15 08/25/24 09:05 1,000 MG Meropenem 50 ml @ 17 mls/hr Q8H IV 08/23/24 13:00 08/26/24 20:29 17 MLS/HR Micafungin Sodium 100 mg/Sodium Chloride 100 ml @ 100 mls/hr DAILY IV 08/24/24 10:00 08/26/24 09:01 100 MLS/HR Hydromorphone HCl 1.5 mg Q3HPRN PRN IV 08/24/24 10:30 08/25/24 16:37 1.5 MG Rocuronium [place] 50 mg Q3HR PRN IV 08/24/24 10:30 08/25/24 06:08 50 MG Rocuronium [place] 1000 mg/ Dextrose 250 ml @ 10.08 mls/ hr Q24H IV 08/25/24 07:30 08/26/24 08:05 8.064 MLS/HR Hydralazine HCl 10 mg Q6HP PRN IV 08/25/24 17:30 08/26/24 14:10 10 MG Propofol 100 ml @ 2.694 mls/ hr Q24H IV 08/26/24 11:00 08/26/24 14:17 8.082 MLS/HR Sodium Acetate 60 meq/Potassium Acetate 60 meq/ Potassium Phosphate 11 meq/ Magnesium Sulfate 24 meq/ Multivitamins 10 ml/Chromium/ Copper/Manganese/ Zinc 1 ml/Amino Acids/Dextrose 1,129.5 ml @ 47 mls/hr Q24H2M IV 08/26/24 22:00 08/27/24 21:59 08/26/24 21:41 47 MLS/HR Labetalol HCl 10 mg Q2HPRN PRN IV 08/26/24 17:00 08/26/24 19:45 10 MG objective Gen.: Patient lying in bed in medical ICU. Sedated, intubated on mechanical ventilator. Head: Normocephalic, atraumatic. Eyes: PERRLA. Ears: Normal external anatomy. Throat: Endotracheal tube and orogastric tube in place. Neck: Supple, trachea midline. Chest: Transmitted breath sounds bilaterally. Decreased air entry bilaterally. No wheezing. Bibasilar crackles. Cardiovascular: Positive S1, positive S2. Regular rate and rhythm. Abdomen: Positive bowel sounds in all 4 quadrants. Soft, nontender, nondistended. : Gutierrez in place. Normal external genitalia. Rectal: Deferred. Skin: Warm, dry. Intact. Extremities: 2+ radial pulses bilaterally. No lower extremity edema. Neuro: Sedated. laboratory and microbiology Laboratory Tests 08/26/24 03:11 Test 08/26/24 03:11 Range/Units Serum Glucose 157 H 74-106 mg/dL Assessment/Plan Impression: Acute hypoxic respiratory failure On mechanical ventilator Hypertriglyceridemia induced acute pancreatitis Hypocalcemia Hypophosphatemia Peritonitis Acute abdomen Ascites Hyponatremia due to hypotonic IV fluid Vitamin-D deficiency Hypomagnesemia Hyperparathyroidism immune Anabaptist diffuse plasmapheresis Lactic acidosis, improving Events: Remains on vent support On assist control mode with respiratory rate of 22, tidal volume 450, PEEP of 5, FiO2 of 30%. Patient is s/p surgical procedure. On Rocuronium drip. Sedated on Fentanyl, Versed, Propofol. On Precedex drip Continue antibiotics -meropenem Continue micafungin Hydralazine 10 mg q.6 hours PRN SBP >160 mmHg Insulin drip TPN for nutritional support IV fluids with D5-NS. Wound care Surgery recommendations appreciated. Monitor hemoglobin Diurese w/ Lasix as tolerated Monitor renal function Labs and imaging reviewed. Rest of plan as noted below. Plan: s/p intubation on mechanical ventilator On assist control mode with respiratory rate of 22, tidal volume 450, PEEP of 5, FiO2 of 30%. Titrate FIO2 to keep O2 saturation above 92%. VAP bundle Daily ABG and CXR while intubated. Sedate for ventilatory synchrony. Start pressors for hemodynamic support if necessary. Keep MAP above 65 mmHg/SBP above 90 mmHg. Continue broad spectrum antibiotics. F/u cultures. Monitor renal function due to Acute kidney injury. Monitor electrolytes. Supplement as necessary. Received calcium gluconate Potassium, calcium and magnesium were supplemented. Continue IV fluids Accu-cheks, on insulin drip. Abdomen was severely distended. Limited ultrasound of the abdomen revealed no pocket amenable for paracentesis. Recommended for RN to check bladder pressure every 6 hours. Currently it was 16 mmHg. Surgery recommendations appreciated - we will consider emergent surgery if abdominal pressures exceeding 25 mmHg. Patient s/p surgical procedure to decompress abdomen on 08/26. GI/DVT prophylaxis. Condition: Critical Prognosis: Poor given multiple comorbidities. Rest of plan per hospitalist and other consultants. A total of 35 minutes of critical care time was spent reviewing the patient record, examining the patient, making a diagnostic and therapeutic plan, discussing this plan with the medical personnel, following up on diagnostic studies and following the patient for clinical stability excluding any and all procedures. At least 50% of this time was spent in direct, [id number] contact. Thank you Dr. Bedolla for allowing me to participate in this patient's care. Further recommendations will depend on patient's clinical course. Please do not hesitate to contact me if you have any questions or concerns. This medical document was created using an electronic medical record system with [employer] system. Although this document has been carefully reviewed, there may still be some phonetic and typographical errors. These areas are purely typographical due to imperfections of the software programs, and do not reflect any compromise in the patient's medical care. Dietary Evaluation Review Comments: 1) Increase TPN to meet at least 75% of estimated needs 2) Advance pt diet when medically feasible to a Low Fat diet 3) Continue current plan of care Expected Outcomes/Goals: 1) Pt diet to advance 2) Pt labs to improve 3) F/U in 2-3 days Plan discussed with: Other (ANDRES Gomez) Critical Care Time(min): 35 JUDE REN MD Aug 26, 2024 22:18
[2024-08-27] VITALS (108 sets, daily range): BP systolic 99–215; BP diastolic 46–132; PULSE 82–119; RESP 18–36; TEMP 97–100; O2SAT 96–100
--- NOTE | 2024-08-27 04:41 | DVH ---
CHEST RADIOGRAPH Indication: patient intubated Technique: Single frontal view of the chest was obtained Comparison: XY CHEST PORTABLE on DOS: 08/26/24 FINDINGS: Lines and Tubes: The endotracheal tube terminates 4.3 cm above the peg. Right central venous cath eter terminates in the right atrium. Right PICC terminates in the right atrium. The enteric tube ter minates in the stomach. Lungs: Lungs are hypoinflated with interstitial prominence. Pleura: No effusion. No pneumothorax. Cardiomediastinal contours: Stable. Bones: No acute osseous abnormality. IMPRESSION: 1. Stable position of the support lines and tubes. 2. Pulmonary congestion.
[2024-08-27] MEDS: DexmedeTOMIDine 4 ML IV ONE (06:07)
[2024-08-27 06:25] LABS: Base Excess -2.4 mmol/L (-2.0-3.0)
[2024-08-27 07:38] LABS: Hemoglobin 9.1 g/dL (12.2-16.2); Mean Corpuscular Hemoglobin 29.6 pg (28.0-32.0); Mean Corpuscular Hgb Conc. 33.6 g/dL (32.0-36.0); Mean Corpuscular Volume 88.1 fL (80.0-100.0); Platelet Count (auto) 227 10^3/uL (140-450); Red Blood Cells 3.06 10^6/uL (4.0-5.20); Red Cell Distribution Width 15.1 % (11.8-14.3); White Blood Cell 20.5 10^3/uL (4.4-10.8)
[2024-08-27 07:44] LABS: Alanine Aminotransferase 14 U/L (7-40); Albumin 2.9 g/dL (3.2-4.8); Alkaline Phosphatase 61 U/L (46-116); Anion Gap 6 (5-15); Aspartate Aminotransferase 31 U/L (13-40); BUN/Creatinine Ratio 24.3 (10.0-20.0); Blood Urea Nitrogen 18 mg/dL (9-23); Calcium 8.6 mg/dL (8.7-10.4); Carbon Dioxide 25 mmol/L (20-31); Chloride 104 mmol/L (98-107); Glucose 227 mg/dL (74-106); Magnesium 2.1 mg/dL (1.6-2.6); Phosphorus 3.8 mg/dL (2.4-5.1); Sodium 135 mmol/L (136-145); Triglycerides 425 mg/dL (< 150)
[2024-08-27 07:45] LABS: Bilirubin, Total 0.3 mg/dL (0.2-1.0); Total Protein 5.3 g/dL (5.7-8.2)
[2024-08-27 07:57] LABS: Basophils % (manual) 0 (0.0-2.0); Blast Cells 0; Eosinophils % (manual) 0 (0-7); Promyelocytes % 0; Reactive Lymphocytes 0
[2024-08-27 08:48] LABS: Band Neutrophils % (manual) 2; Lymphocytes % (manual) 2 (10.0-50.0); Metamyelocytes % 1; Monocytes % (manual) 6 (0-12); Myelocytes % 1; Platelet Estimate Adequate; RBC Morphology Normal
--- NOTE | 2024-08-27 09:18 | DVHPN2 ---
Subjective Chemically sedated Reviewed: Care Plan, H&P, Labs, Medications Changes from previous H/P or p: No Changes General: Per HPI Eyes: No Pain, No Vision change, No Conjunctivae inflammation, No Eyelid inflammation, No Other, No Redness ENT: No Ear pain, No Ear discharge, No Nose pain, No Nose discharge, No Nose congestion, No Mouth pain, No Mouth swelling, No Throat pain, No Throat swelling, No Other Cardiovascular: No Chest Pain, No Palpitations, No Orthopnea, No Paroxysmal Noc. Dyspnea, No Edema, No Lt Headedness, No Other Respiratory: No Cough, No Dry, No Shortness of breath, No SOB with excertion, No Wheezing, No Hemoptysis, No Pleuritic Pain, No Sputum, No Other Gastrointestinal: Nausea, Vomiting, Abdominal Pain, Diarrhea Genitourinary: No Dysuria, No Frequency, No Incontinence, No Hematuria, No Retention, No Other Musculoskeletal: No other, No neck pain, No shoulder pain, No arm pain, No back pain, No hand pain, No leg pain, No foot pain Skin: No Rash, No Lesions, No Jaundice, No Bruising, No Other Objective Vitals Vital Signs Date Time Temp Pulse Resp B/P (MAP) Pulse Ox O2 Delivery O2 Flow Rate FiO2 08/27/24 09:13 91 22 107/56 (73) 97 45 08/27/24 06:45 97.0 206.6 08/27/24 06:00 Mechanical Ventilator+ Intake/Output Intake and Output 08/27/24 07:00 Intake Total 5635.278 ml Output Total 3010 ml Balance 2625.278 ml Intake Oral 30 ml IV Total 5605.278 ml Output Urine Total 2250 ml Gastric Drainage Total 450 ml Drainage Total 310 ml General Appearance: moderate distress, Other (Patient sedated and paralyzed) HEENT: Atraumatic, PERRLA Lungs: Clear to auscultation, Normal air movement, Other (Mechanical ventilation) Cardiovascular: Normal S1, Normal S2 Abdomen: Other (Hypoactive bowel sounds. Greater than serosanguineous drainage. SOLIS drain x 2. ) Genitourinary: No Apparent Abnormalities (Sparrow catheterization) Musculoskeletal: Other (Unable to assess) Psych/Mental Status: Other (Unable to assess) Medications Current Medications Medications Dose Ordered Sig/Snow Route Start Time Stop Time Status Last Admin Dose Admin Sodium Chloride 10 ml Q8HR IV 08/14/24 22:00 08/27/24 05:26 10 ML Pantoprazole Sodium 40 mg DAILY IV 08/15/24 10:00 08/26/24 09:04 40 MG Ergocalciferol 50,000 unit Q7D PO 08/15/24 10:00 08/15/24 08:53 50,000 UNIT Dextrose 50 ml UD PRN IV 08/15/24 12:45 Midazolam HCl 50 ml @ 1 mls/hr Q24H IV 08/16/24 11:30 08/27/24 06:28 15 MLS/HR Linezolid 300 ml @ 150 mls/hr Q12HR IV 08/16/24 13:00 08/26/24 21:37 150 MLS/HR Dexmedetomidine HCl 400 mcg/ Dextrose 100 ml @ 3.695 mls/ hr Q24H IV 08/17/24 02:45 08/27/24 06:14 12.933 MLS/HR Acetaminophen 650 mg Q8HPRN PRN AL 08/17/24 04:15 08/22/24 14:10 650 MG Calcitriol 1 mcg EOD IV 08/17/24 10:00 08/25/24 07:49 1 MCG Norepinephrine Bitartrate 250 ml @ 3.75 mls/hr Q24H IV 08/17/24 09:30 08/19/24 11:29 7.5 MLS/HR Amino Acids 0 ml @ 0 mls/hr PER PHARMACY IV 08/19/24 14:45 Sodium Chloride 10 ml QSHIFT@10,22 IV 08/19/24 22:00 08/26/24 21:41 10 ML Insulin Human (Reg)/Sodium Chloride 100 ml 1945 IV 08/21/24 19:45 UNV Diagnostic Test (Pha) 1 strip Q2HR 08/22/24 10:00 08/27/24 08:12 1 STRIP Insulin Human (Reg)/Sodium Chloride 100 ml @ 0.5 mls/hr Q24H IV 08/22/24 09:30 08/26/24 01:40 0.5 MLS/HR Furosemide 40 mg DAILY IV 08/23/24 10:00 08/26/24 09:04 40 MG Fentanyl Citrate 250 ml @ 2.5 mls/hr Q24H IV 08/22/24 12:15 08/27/24 07:38 50 MLS/HR Dextrose/Sodium Chloride 1,000 ml @ 75 mls/hr [id number] IV 08/22/24 19:00 08/27/24 08:47 75 MLS/HR Acetaminophen 1,000 mg Q6HPRN PRN IV 08/22/24 23:15 08/25/24 09:05 1,000 MG Meropenem 50 ml @ 17 mls/hr Q8H IV 08/23/24 13:00 08/27/24 04:27 17 MLS/HR Micafungin Sodium 100 mg/Sodium Chloride 100 ml @ 100 mls/hr DAILY IV 08/24/24 10:00 08/26/24 09:01 100 MLS/HR Hydromorphone HCl 1.5 mg Q3HPRN PRN IV 08/24/24 10:30 08/27/24 01:26 1.5 MG Rocuronium [place] 50 mg Q3HR PRN IV 08/24/24 10:30 08/25/24 06:08 50 MG Rocuronium [place] 1000 mg/ Dextrose 250 ml @ 10.08 mls/ hr Q24H IV 08/25/24 07:30 08/27/24 02:07 6.048 MLS/HR Hydralazine HCl 10 mg Q6HP PRN IV 08/25/24 17:30 08/27/24 05:42 10 MG Propofol 100 ml @ 2.694 mls/ hr Q24H IV 08/26/24 11:00 08/27/24 08:54 8.082 MLS/HR Sodium Acetate 60 meq/Potassium Acetate 60 meq/ Potassium Phosphate 11 meq/ Magnesium Sulfate 24 meq/ Multivitamins 10 ml/Chromium/ Copper/Manganese/ Zinc 1 ml/Amino Acids/Dextrose 1,129.5 ml @ 47 mls/hr Q24H2M IV 08/26/24 22:00 08/27/24 21:59 08/26/24 21:41 47 MLS/HR Labetalol HCl 10 mg Q2HPRN PRN IV 08/26/24 17:00 08/27/24 07:43 10 MG Laboratory Results Laboratory Tests 08/27/24 06:55 Chemistry Test 08/27/24 06:55 Albumin 2.9 g/dL (3.2-4.8) L Calcium Level 8.6 mg/dL (8.7-10.4) L Magnesium Level 2.1 mg/dL (1.6-2.6) Phosphorus Level 3.8 mg/dL (2.4-5.1) Total Protein 5.3 g/dL (5.7-8.2) L Lipid panel Test 08/27/24 06:55 Triglycerides Level 425 mg/dL (< 150) H LFT Test 08/27/24 06:55 Alanine Aminotransferase (ALT) 14 U/L (7-40) Alkaline Phosphatase 61 U/L (46-116) Aspartate Amino Transferase (AST) 31 U/L (13-40) Total Bilirubin 0.3 mg/dL (0.2-1.0) Urinalysis Test 08/14/24 12:07 08/16/24 12:55 Urine Color Colorless (Yellow) Urine Clarity Clear (Clear) Urine pH 5.5 (5.0-9.0) Urine Specific [place] 1.013 (1.001-1.035) Urine Protein Negative (Negative) Urine Ketones Negative (Negative) Urine Blood 1+ /uL (Negative) H Urine Nitrite Negative (Negative) Urine Bilirubin Negative (Negative) Urine Urobilinogen Normal mg/dL (Negative) Urine Leukocyte Esterase Negative /uL (Negative) Urine RBC 3 /hpf (0 - 4) Urine WBC <1 /hpf (0 - 5) Urine Squamous Epithelial Cells Few /hpf (<5) Urine Bacteria Few /hpf (None Seen) H Urine Glucose Normal mg/dL (Normal) Urine Creatinine 242.96 mg/dL (30.0-125.0) H Urine Protein/Creatinine Ratio 1.09 Urine Sodium 13 mmol/L (40-220) L Urine Total Protein 265.4 mg/dL (1-14) H Blood Gas Results Test 08/27/24 06:18 Arterial Blood pH 7.393 (7.350-7.450) FiO2 % 40.0 Microbiology Microbiology Date/Time Source Procedure Growth Status 08/24/24 08:40 Blood Blood Culture - Preliminary NO GROWTH AFTER 72 HOURS OF INCUBATION. Resulted 08/16/24 11:57 Sputum Gram Stain - Final Complete 08/16/24 11:57 Respiratory Culture - Final Beta Strep Non-A, Non-B Complete 08/16/24 01:00 Urine - Midstream Clean Catch Urine Culture - Final Complete 08/15/24 13:32 Nose MRSA Screen - Final Complete Labs and/or images reviewed: Labs reviewed by me, Image(s) reviewed by me Assessment/Plan Assessment/Plan Impression: -acute pancreatitis secondary to hypertriglyceridemia -abdominal compartment syndrome -acute hypoxic respiratory failure -anemia -gap acidosis -ascites -pleural effusions -sepsis Plan: Events: Patient back to OR yesterday. Abdomen closed. Denies to have increased abdominal pressures. Serous fluid noted from SOLIS drain. Plans for increased IV diuresis, decrease IV fluids. Weaned off rocuronium drip -continue insulin drip -continue current sedation -continue TPN -q.2 hours Accu-Cheks -pain management: Continue fentanyl drip -surgical consultation: Recommendations reviewed -repeat labs,, chest x-ray, ABG in a Critical care time spent with patient discussing and formulating plan of care: 40 minutes. This does not include time spent performing procedures. This medical document was created using an electronic medical record system with [email or web address] dictation system. Although this document has been carefully reviewed, there may still be some phonetic and typographical errors. These areas are purely typographical due to imperfections of the software programs, and do not reflect any compromise in the patient's medical care. Plan discussed with: Patient, Other (RN) My Orders Orders - LAURA TAYLOR NP Procedure Category Date Status Time Propofol (Diprivan) PHA 08/26/24 In Process 11:00 Labetalol Hcl PHA 08/26/24 In Process (Labetalol Hcl) 17:00 D5w/Sod Chlo 0.9% Ns PHA 08/27/24 Verified 09:15 Furosemide Injection PHA 08/27/24 Verified (Lasix Injection) 18:00 Date of Service: Aug 27, 2024 Billing Provider: KSENIA BOYD Common Visit Codes: [id number] CARE 30-74 MIN LAURA TAYLOR NP Aug 27, 2024 09:17
[2024-08-27] MEDS: D5W/SOD CHLO 0.9% 1,000 ML IV SCH (09:40)
--- NOTE | 2024-08-27 12:21 | DVHPN2 ---
Progress Note Date Seen: Aug 27, 2024 Has the PT tested + for MRSA If YES, has PT been informed?: No Medical Necessity Reason Pt with a Central, PICC or Fol: Yes The following are medically ne: Central Line, Gutierrez Catheter Reason for gutierrez catheter: Strict I&O Objective vital signs Vital Sign Date Time Temp Pulse Resp B/P (MAP) Pulse Ox O2 Delivery O2 Flow Rate FiO2 08/27/24 11:48 93 22 133/80 (97) 100 45 08/27/24 11:00 97.3 207.1 08/27/24 10:00 Mechanical Ventilator+ Total Intake and Output 08/26/24 08/26/24 08/27/24 15:00 23:00 07:00 Intake Total 2160.506 ml 1573.679 ml 2034.608 ml Output Total 1360 ml 1650 ml Balance 2160.506 ml 213.679 ml 384.608 ml medications Current Medications Medications Dose Ordered Sig/Snow Route Start Time Stop Time Status Last Admin Dose Admin Sodium Chloride 10 ml Q8HR IV 08/14/24 22:00 08/27/24 05:26 10 ML Pantoprazole Sodium 40 mg DAILY IV 08/15/24 10:00 08/27/24 09:30 40 MG Ergocalciferol 50,000 unit Q7D PO 08/15/24 10:00 08/15/24 08:53 50,000 UNIT Dextrose 50 ml UD PRN IV 08/15/24 12:45 Midazolam HCl 50 ml @ 1 mls/hr Q24H IV 08/16/24 11:30 08/27/24 11:58 15 MLS/HR Linezolid 300 ml @ 150 mls/hr Q12HR IV 08/16/24 13:00 08/27/24 10:45 150 MLS/HR Dexmedetomidine HCl 400 mcg/ Dextrose 100 ml @ 3.695 mls/ hr Q24H IV 08/17/24 02:45 08/27/24 06:14 12.933 MLS/HR Acetaminophen 650 mg Q8HPRN PRN NV 08/17/24 04:15 08/22/24 14:10 650 MG Calcitriol 1 mcg EOD IV 08/17/24 10:00 08/27/24 09:32 1 MCG Norepinephrine Bitartrate 250 ml @ 3.75 mls/hr Q24H IV 08/17/24 09:30 08/19/24 11:29 7.5 MLS/HR Amino Acids 0 ml @ 0 mls/hr PER PHARMACY IV 08/19/24 14:45 Sodium Chloride 10 ml QSHIFT@10,22 IV 08/19/24 22:00 08/27/24 10:10 10 ML Insulin Human (Reg)/Sodium Chloride 100 ml 1945 IV 08/21/24 19:45 UNV Diagnostic Test (Pha) 1 strip Q2HR 08/22/24 10:00 08/27/24 12:02 1 STRIP Insulin Human (Reg)/Sodium Chloride 100 ml @ 0.5 mls/hr Q24H IV 08/22/24 09:30 08/27/24 10:07 0.5 MLS/HR Fentanyl Citrate 250 ml @ 2.5 mls/hr Q24H IV 08/22/24 12:15 08/27/24 11:59 50 MLS/HR Acetaminophen 1,000 mg Q6HPRN PRN IV 08/22/24 23:15 08/25/24 09:05 1,000 MG Meropenem 50 ml @ 17 mls/hr Q8H IV 08/23/24 13:00 08/27/24 04:27 17 MLS/HR Micafungin Sodium 100 mg/Sodium Chloride 100 ml @ 100 mls/hr DAILY IV 08/24/24 10:00 08/27/24 09:35 100 MLS/HR Hydromorphone HCl 1.5 mg Q3HPRN PRN IV 08/24/24 10:30 08/27/24 01:26 1.5 MG Rocuronium [place] 50 mg Q3HR PRN IV 08/24/24 10:30 08/25/24 06:08 50 MG Rocuronium [place] 1000 mg/ Dextrose 250 ml @ 10.08 mls/ hr Q24H IV 08/25/24 07:30 08/27/24 02:07 6.048 MLS/HR Hydralazine HCl 10 mg Q6HP PRN IV 08/25/24 17:30 08/27/24 05:42 10 MG Propofol 100 ml @ 2.694 mls/ hr Q24H IV 08/26/24 11:00 08/27/24 08:54 8.082 MLS/HR Sodium Acetate 60 meq/Potassium Acetate 60 meq/ Potassium Phosphate 11 meq/ Magnesium Sulfate 24 meq/ Multivitamins 10 ml/Chromium/ Copper/Manganese/ Zinc 1 ml/Amino Acids/Dextrose 1,129.5 ml @ 47 mls/hr Q24H2M IV 08/26/24 22:00 08/27/24 21:59 08/26/24 21:41 47 MLS/HR Labetalol HCl 10 mg Q2HPRN PRN IV 08/26/24 17:00 08/27/24 07:43 10 MG Dextrose/Sodium Chloride 1,000 ml @ 50 mls/hr Q20H IV 08/27/24 09:15 08/27/24 09:40 50 MLS/HR Furosemide 40 mg BIDD IV 08/27/24 18:00 Sodium Acetate 80 meq/Potassium Phosphate 22 meq/ Calcium Gluconate 2.3 meq/Magnesium Sulfate 24 meq/ Multivitamins 10 ml/Chromium/ Copper/Manganese/ Zinc 1 ml/Amino Acids/Dextrose 1,166.9462 ml @ 48 mls/hr [id number] IV 08/27/24 22:00 08/28/24 21:59 laboratory and microbiology Laboratory Tests 08/27/24 06:55 Test 08/27/24 06:55 Range/Units Serum Glucose 227 H 74-106 mg/dL Problem List/Assessment/Plan Problem List/Assessment/Plan 08/19/24 ABDOMINAL PRESXURE IMPROVED, DRESSING DRY, SEROUS DRAINAGE, WILL TAKE TO O.R. MONDAY TO LAVAGE AND RE DRESS, POSSIBLY PLACE FASCIAL SUTURES 08/22/24 ABDOMEN LESS TENSE, DRESSING APPLIED, WILL CONSIDER CLOSURE OF ABDOMEN SOON. 08/23/24 abdomen still quite tense, leukocytosis, fever, urine output adequate, needs to have abdominal pressure determined q 6 hours(informed nurse), possibly return to OR on Monday to close the abdomen if pressures normal. 08/25/24 ABDOMINAL PRESSURE 7, LEUKOCYTOSIS AND FEVER PERSIST, WILL ATTEMPT ABDOMINAL CLOSURE TOMORROW 08/27/24 FEBRILE, ELEVATED WBC, ABDOMEN NONDISTENDED, GOOD URINE OUTPUT, DRESSING DRY Plan discussed with: Patient Dietary Evaluation Review Comments: 1) Increase TPN to meet at least 75% of estimated needs 2) Advance pt diet when medically feasible to a Low Fat diet 3) Continue current plan of care Expected Outcomes/Goals: 1) Pt diet to advance 2) Pt labs to improve 3) F/U in 2-3 days MARILYN OJEDA MD Aug 27, 2024 12:21
[2024-08-27] MEDS: FUROSEMIDE 40 MG/4 ML VIAL IV SCH (18:20)
[2024-08-27] MEDS: TPN PER PHARMACY IV NR (20:28)
--- NOTE | 2024-08-27 21:06 | DVHPN2 ---
Progress Note - Dictate Date Seen: Aug 27, 2024 Has the PT tested + for MRSA If YES, has PT been informed?: No Medical Necessity Reason Pt with a Central, PICC or Fol: Yes The following are medically ne: Central Line, Gutierrez Catheter Reason for gutierrez catheter: Strict I&O Subjective Patient seen and examined at bedside. Sedated, intubated on mechanical ventilator. Overnight events reviewed. vital signs Vital Sign Date Time Temp Pulse Resp B/P (MAP) Pulse Ox O2 Delivery O2 Flow Rate FiO2 08/27/24 20:43 152/100 08/27/24 20:00 99 22 97 40 08/27/24 18:45 99.3 210.7 08/27/24 18:00 Mechanical Ventilator+ Total Intake and Output 08/26/24 08/26/24 08/27/24 15:00 23:00 07:00 Intake Total 2160.506 ml 1573.679 ml 2034.608 ml Output Total 1360 ml 1650 ml Balance 2160.506 ml 213.679 ml 384.608 ml medications Current Medications Medications Dose Ordered Sig/Snow Route Start Time Stop Time Status Last Admin Dose Admin Sodium Chloride 10 ml Q8HR IV 08/14/24 22:00 08/27/24 12:54 10 ML Pantoprazole Sodium 40 mg DAILY IV 08/15/24 10:00 08/27/24 09:30 40 MG Ergocalciferol 50,000 unit Q7D PO 08/15/24 10:00 08/15/24 08:53 50,000 UNIT Dextrose 50 ml UD PRN IV 08/15/24 12:45 Midazolam HCl 50 ml @ 1 mls/hr Q24H IV 08/16/24 11:30 08/27/24 18:20 15 MLS/HR Linezolid 300 ml @ 150 mls/hr Q12HR IV 08/16/24 13:00 08/27/24 10:45 150 MLS/HR Dexmedetomidine HCl 400 mcg/ Dextrose 100 ml @ 3.695 mls/ hr Q24H IV 08/17/24 02:45 08/27/24 20:43 12.933 MLS/HR Acetaminophen 650 mg Q8HPRN PRN [place] 08/17/24 04:15 08/22/24 14:10 650 MG Calcitriol 1 mcg EOD IV 08/17/24 10:00 08/27/24 09:32 1 MCG Norepinephrine Bitartrate 250 ml @ 3.75 mls/hr Q24H IV 08/17/24 09:30 08/19/24 11:29 7.5 MLS/HR Amino Acids 0 ml @ 0 mls/hr PER PHARMACY IV 08/19/24 14:45 Sodium Chloride 10 ml QSHIFT@10,22 IV 08/19/24 22:00 08/27/24 10:10 10 ML Insulin Human (Reg)/Sodium Chloride 100 ml 1945 IV 08/21/24 19:45 UNV Diagnostic Test (Pha) 1 strip Q2HR 08/22/24 10:00 08/27/24 20:34 1 STRIP Insulin Human (Reg)/Sodium Chloride 100 ml @ 0.5 mls/hr Q24H IV 08/22/24 09:30 08/27/24 10:07 0.5 MLS/HR Fentanyl Citrate 250 ml @ 2.5 mls/hr Q24H IV 08/22/24 12:15 08/27/24 17:23 50 MLS/HR Acetaminophen 1,000 mg Q6HPRN PRN IV 08/22/24 23:15 08/25/24 09:05 1,000 MG Meropenem 50 ml @ 17 mls/hr Q8H IV 08/23/24 13:00 08/27/24 21:03 17 MLS/HR Micafungin Sodium 100 mg/Sodium Chloride 100 ml @ 100 mls/hr DAILY IV 08/24/24 10:00 08/27/24 09:35 100 MLS/HR Hydromorphone HCl 1.5 mg Q3HPRN PRN IV 08/24/24 10:30 08/27/24 01:26 1.5 MG Rocuronium [place] 50 mg Q3HR PRN IV 08/24/24 10:30 08/25/24 06:08 50 MG Rocuronium [place] 1000 mg/ Dextrose 250 ml @ 10.08 mls/ hr Q24H IV 08/25/24 07:30 08/27/24 02:07 6.048 MLS/HR Hydralazine HCl 10 mg Q6HP PRN IV 08/25/24 17:30 08/27/24 15:34 10 MG Propofol 100 ml @ 2.694 mls/ hr Q24H IV 08/26/24 11:00 08/27/24 08:54 8.082 MLS/HR Sodium Acetate 60 meq/Potassium Acetate 60 meq/ Potassium Phosphate 11 meq/ Magnesium Sulfate 24 meq/ Multivitamins 10 ml/Chromium/ Copper/Manganese/ Zinc 1 ml/Amino Acids/Dextrose 1,129.5 ml @ 47 mls/hr Q24H2M IV 08/26/24 22:00 08/27/24 21:59 08/26/24 21:41 47 MLS/HR Labetalol HCl 10 mg Q2HPRN PRN IV 08/26/24 17:00 08/27/24 16:07 10 MG Dextrose/Sodium Chloride 1,000 ml @ 50 mls/hr Q20H IV 08/27/24 09:15 08/27/24 09:40 50 MLS/HR Furosemide 40 mg BIDD IV 08/27/24 18:00 08/27/24 18:20 40 MG Sodium Acetate 80 meq/Potassium Phosphate 22 meq/ Calcium Gluconate 2.3 meq/Magnesium Sulfate 24 meq/ Multivitamins 10 ml/Chromium/ Copper/Manganese/ Zinc 1 ml/Amino Acids/Dextrose 1,166.9462 ml @ 48 mls/hr [id number] IV 08/27/24 22:00 08/28/24 21:59 08/27/24 20:28 48 MLS/HR objective Gen.: Patient lying in bed in medical ICU. Sedated, intubated on mechanical ventilator. Head: Normocephalic, atraumatic. Eyes: PERRLA. Ears: Normal external anatomy. Throat: Endotracheal tube and orogastric tube in place. Neck: Supple, trachea midline. Chest: Transmitted breath sounds bilaterally. Decreased air entry bilaterally. No wheezing. Bibasilar crackles. Cardiovascular: Positive S1, positive S2. Regular rate and rhythm. Abdomen: Positive bowel sounds in all 4 quadrants. Soft, nontender, nondistended. : Gutierrez in place. Normal external genitalia. Rectal: Deferred. Skin: Warm, dry. Intact. Extremities: 2+ radial pulses bilaterally. No lower extremity edema. Neuro: Sedated. laboratory and microbiology Laboratory Tests 08/27/24 06:55 Test 08/27/24 06:55 Range/Units Serum Glucose 227 H 74-106 mg/dL Assessment/Plan Impression: Acute hypoxic respiratory failure On mechanical ventilator Hypertriglyceridemia induced acute pancreatitis Hypocalcemia Hypophosphatemia Peritonitis Acute abdomen Ascites Hyponatremia due to hypotonic IV fluid Vitamin-D deficiency Hypomagnesemia Hyperparathyroidism immune Sikh diffuse plasmapheresis Lactic acidosis, improving Events: Remains on vent support On assist control mode with respiratory rate of 22, tidal volume 450, PEEP of 5, FiO2 of 40%. On Rocuronium drip. Sedated on Fentanyl, Versed, Propofol. On Precedex drip Continue antibiotics -meropenem Continue micafungin Hydralazine 10 mg q.6 hours PRN SBP >160 mmHg Insulin drip TPN for nutritional support IV fluids with D5-NS. Wound care Surgery recommendations appreciated. TPN for nutritional support Monitor hemoglobin Diurese w/ Lasix as tolerated Monitor renal function Labs and imaging reviewed. Rest of plan as noted below. Plan: s/p intubation on mechanical ventilator On assist control mode with respiratory rate of 22, tidal volume 450, PEEP of 5, FiO2 of 40%. Titrate FIO2 to keep O2 saturation above 92%. VAP bundle Daily ABG and CXR while intubated. Sedate for ventilatory synchrony. Start pressors for hemodynamic support if necessary. Keep MAP above 65 mmHg/SBP above 90 mmHg. Continue broad spectrum antibiotics. F/u cultures. Monitor renal function due to Acute kidney injury. Monitor electrolytes. Supplement as necessary. Received calcium gluconate Potassium, calcium and magnesium were supplemented. Continue IV fluids Accu-cheks, on insulin drip. Abdomen was severely distended. Limited ultrasound of the abdomen revealed no pocket amenable for paracentesis. Recommended for RN to check bladder pressure every 6 hours. Currently it was 16 mmHg. Surgery recommendations appreciated - we will consider emergent surgery if abdominal pressures exceeding 25 mmHg. Patient s/p surgical procedure to decompress abdomen on 08/26. GI/DVT prophylaxis. Condition: Critical Prognosis: Poor given multiple comorbidities. Rest of plan per hospitalist and other consultants. A total of 35 minutes of critical care time was spent reviewing the patient record, examining the patient, making a diagnostic and therapeutic plan, discussing this plan with the medical personnel, following up on diagnostic studies and following the patient for clinical stability excluding any and all procedures. At least 50% of this time was spent in direct, [id number] contact. Thank you Dr. Bedolla for allowing me to participate in this patient's care. Further recommendations will depend on patient's clinical course. Please do not hesitate to contact me if you have any questions or concerns. This medical document was created using an electronic medical record system with [employer] dictation system. Although this document has been carefully reviewed, there may still be some phonetic and typographical errors. These areas are purely typographical due to imperfections of the software programs, and do not reflect any compromise in the patient's medical care. Dietary Evaluation Review Comments: 1) Increase TPN to meet at least 75% of estimated needs 2) Advance pt diet when medically feasible to a Low Fat diet 3) Continue current plan of care Expected Outcomes/Goals: 1) Pt diet to advance 2) Pt labs to improve 3) F/U in 2-3 days Plan discussed with: Other (ANDRES Rockwell) Critical Care Time(min): 35 JUDE REN MD Aug 27, 2024 21:06
[2024-08-28] VITALS (113 sets, daily range): BP systolic 92–189; BP diastolic 36–121; PULSE 88–122; RESP 15–30; TEMP 97.3–100.4; O2SAT 92–100
[2024-08-28 03:54] LABS: Red Blood Cells 2.82 10^6/uL (4.0-5.20)
[2024-08-28 03:56] LABS: Hematocrit 24.7 % (36.0-46.0); Hemoglobin 8.1 g/dL (12.2-16.2); Mean Corpuscular Hemoglobin 28.9 pg (28.0-32.0); Mean Corpuscular Volume 87.7 fL (80.0-100.0); Platelet Count (auto) 202 10^3/uL (140-450); Red Cell Distribution Width 15.1 % (11.8-14.3); White Blood Cell 18.8 10^3/uL (4.4-10.8)
[2024-08-28 03:57] LABS: Basophils % (manual) 0 (0.0-2.0); Blast Cells 0; Metamyelocytes % 0; Myelocytes % 0; Promyelocytes % 0; Reactive Lymphocytes 0
[2024-08-28 04:15] LABS: Alanine Aminotransferase 23 U/L (7-40); Albumin 2.7 g/dL (3.2-4.8); Alkaline Phosphatase 66 U/L (46-116); Anion Gap 5 (5-15); Aspartate Aminotransferase 37 U/L (13-40); Blood Urea Nitrogen 20 mg/dL (9-23); Calcium 8.5 mg/dL (8.7-10.4); Carbon Dioxide 29 mmol/L (20-31); Chloride 103 mmol/L (98-107); Glucose 205 mg/dL (74-106); Potassium 4.7 mmol/L (3.5-5.1); Sodium 137 mmol/L (136-145)
[2024-08-28 04:16] LABS: Bilirubin, Total 0.4 mg/dL (0.2-1.0); Phosphorus 4.7 mg/dL (2.4-5.1)
[2024-08-28 05:27] LABS: Band Neutrophils % (manual) 2; Eosinophils % (manual) 1 (0-7); Lymphocytes % (manual) 10 (10.0-50.0); Monocytes % (manual) 5 (0-12); Platelet Estimate Adequate
[2024-08-28 07:51] LABS: Base Excess 2.9 mmol/L (-2.0-3.0)
[2024-08-28 09:01] LABS: Alanine Aminotransferase 30 U/L (7-40); Albumin 2.9 g/dL (3.2-4.8); Alkaline Phosphatase 68 U/L (46-116); Anion Gap 5 (5-15); Aspartate Aminotransferase 35 U/L (13-40); BUN/Creatinine Ratio 27.8 (10.0-20.0); Bilirubin, Total 0.4 mg/dL (0.2-1.0); Blood Urea Nitrogen 22 mg/dL (9-23); Calcium 8.7 mg/dL (8.7-10.4); Carbon Dioxide 31 mmol/L (20-31); Chloride 102 mmol/L (98-107); Glucose 199 mg/dL (74-106); Potassium 4.4 mmol/L (3.5-5.1); Sodium 138 mmol/L (136-145)
[2024-08-28 09:02] LABS: Total Protein 5.1 g/dL (5.7-8.2)
--- NOTE | 2024-08-28 09:04 | DVHPN2 ---
Subjective Chemically sedated Reviewed: Care Plan, H&P, Labs, Medications Changes from previous H/P or p: No Changes General: Per HPI Eyes: No Pain, No Vision change, No Conjunctivae inflammation, No Eyelid inflammation, No Other, No Redness ENT: No Ear pain, No Ear discharge, No Nose pain, No Nose discharge, No Nose congestion, No Mouth pain, No Mouth swelling, No Throat pain, No Throat swelling, No Other Cardiovascular: No Chest Pain, No Palpitations, No Orthopnea, No Paroxysmal Noc. Dyspnea, No Edema, No Lt Headedness, No Other Respiratory: No Cough, No Dry, No Shortness of breath, No SOB with excertion, No Wheezing, No Hemoptysis, No Pleuritic Pain, No Sputum, No Other Gastrointestinal: Nausea, Vomiting, Abdominal Pain, Diarrhea Genitourinary: No Dysuria, No Frequency, No Incontinence, No Hematuria, No Retention, No Other Musculoskeletal: No other, No neck pain, No shoulder pain, No arm pain, No back pain, No hand pain, No leg pain, No foot pain Skin: No Rash, No Lesions, No Jaundice, No Bruising, No Other Objective Vitals Vital Signs Date Time Temp Pulse Resp B/P (MAP) Pulse Ox O2 Delivery O2 Flow Rate FiO2 08/28/24 08:45 98.1 99 22 137/79 (98) 97 208.6 08/28/24 08:09 Mechanical Ventilator+ 35 35 Intake/Output Intake and Output 08/28/24 07:00 Intake Total 5308.378 ml Output Total 6650 ml Balance -1341.622 ml IV Total 5308.378 ml Output Urine Total 6190 ml Gastric Drainage Total 305 ml Drainage Total 155 ml General Appearance: moderate distress, Other (Patient sedated and paralyzed) HEENT: Atraumatic, PERRLA Lungs: Clear to auscultation, Normal air movement, Other (Mechanical ventilation) Cardiovascular: Normal S1, Normal S2 Abdomen: Other (Hypoactive bowel sounds. Greater than serosanguineous drainage. SOLIS drain x 2. ) Genitourinary: No Apparent Abnormalities (Sparrow catheterization) Musculoskeletal: Other (Unable to assess) Skin: Dry, Intact Psych/Mental Status: Other (Unable to assess) Medications Current Medications Medications Dose Ordered Sig/Snow Route Start Time Stop Time Status Last Admin Dose Admin Sodium Chloride 10 ml Q8HR IV 08/14/24 22:00 08/28/24 04:51 10 ML Pantoprazole Sodium 40 mg DAILY IV 08/15/24 10:00 08/27/24 09:30 40 MG Ergocalciferol 50,000 unit Q7D PO 08/15/24 10:00 08/15/24 08:53 50,000 UNIT Dextrose 50 ml UD PRN IV 08/15/24 12:45 Midazolam HCl 50 ml @ 1 mls/hr Q24H IV 08/16/24 11:30 08/28/24 07:49 15 MLS/HR Linezolid 300 ml @ 150 mls/hr Q12HR IV 08/16/24 13:00 08/27/24 22:36 150 MLS/HR Dexmedetomidine HCl 400 mcg/ Dextrose 100 ml @ 3.695 mls/ hr Q24H IV 08/17/24 02:45 08/28/24 05:28 12.933 MLS/HR Acetaminophen 650 mg Q8HPRN PRN NE 08/17/24 04:15 08/22/24 14:10 650 MG Calcitriol 1 mcg EOD IV 08/17/24 10:00 08/27/24 09:32 1 MCG Norepinephrine Bitartrate 250 ml @ 3.75 mls/hr Q24H IV 08/17/24 09:30 08/19/24 11:29 7.5 MLS/HR Amino Acids 0 ml @ 0 mls/hr PER PHARMACY IV 08/19/24 14:45 Sodium Chloride 10 ml QSHIFT@10,22 IV 08/19/24 22:00 08/27/24 21:25 10 ML Insulin Human (Reg)/Sodium Chloride 100 ml 1945 IV 08/21/24 19:45 UNV Diagnostic Test (Pha) 1 strip Q2HR 08/22/24 10:00 08/28/24 08:01 1 STRIP Insulin Human (Reg)/Sodium Chloride 100 ml @ 0.5 mls/hr Q24H IV 08/22/24 09:30 08/27/24 10:07 0.5 MLS/HR Fentanyl Citrate 250 ml @ 2.5 mls/hr Q24H IV 08/22/24 12:15 08/28/24 07:55 50 MLS/HR Acetaminophen 1,000 mg Q6HPRN PRN IV 08/22/24 23:15 08/25/24 09:05 1,000 MG Meropenem 50 ml @ 17 mls/hr Q8H IV 08/23/24 13:00 08/28/24 04:42 17 MLS/HR Micafungin Sodium 100 mg/Sodium Chloride 100 ml @ 100 mls/hr DAILY IV 08/24/24 10:00 08/27/24 09:35 100 MLS/HR Hydromorphone HCl 1.5 mg Q3HPRN PRN IV 08/24/24 10:30 08/28/24 03:54 1.5 MG Rocuronium [place] 50 mg Q3HR PRN IV 08/24/24 10:30 08/25/24 06:08 50 MG Rocuronium [place] 1000 mg/ Dextrose 250 ml @ 10.08 mls/ hr Q24H IV 08/25/24 07:30 08/28/24 04:50 6.03 MLS/HR Hydralazine HCl 10 mg Q6HP PRN IV 08/25/24 17:30 08/28/24 06:03 10 MG Propofol 100 ml @ 2.694 mls/ hr Q24H IV 08/26/24 11:00 08/28/24 07:56 8.082 MLS/HR Labetalol HCl 10 mg Q2HPRN PRN IV 08/26/24 17:00 08/28/24 04:39 10 MG Dextrose/Sodium Chloride 1,000 ml @ 50 mls/hr Q20H IV 08/27/24 09:15 08/28/24 04:51 50 MLS/HR Furosemide 40 mg BIDD IV 08/27/24 18:00 08/28/24 05:29 40 MG Sodium Acetate 80 meq/Potassium Phosphate 22 meq/ Calcium Gluconate 2.3 meq/Magnesium Sulfate 24 meq/ Multivitamins 10 ml/Chromium/ Copper/Manganese/ Zinc 1 ml/Amino Acids/Dextrose 1,166.9462 ml @ 48 mls/hr [id number] IV 08/27/24 22:00 08/28/24 21:59 08/27/24 20:28 48 MLS/HR Laboratory Results Laboratory Tests 08/28/24 03:39 Chemistry Test 08/28/24 03:39 08/28/24 08:36 Albumin 2.7 g/dL (3.2-4.8) L Pending Calcium Level 8.5 mg/dL (8.7-10.4) L Pending Magnesium Level 2.0 mg/dL (1.6-2.6) Phosphorus Level 4.7 mg/dL (2.4-5.1) Total Protein 5.0 g/dL (5.7-8.2) L Pending LFT Test 08/28/24 03:39 08/28/24 08:36 Alanine Aminotransferase (ALT) 23 U/L (7-40) Pending Alkaline Phosphatase 66 U/L (46-116) Pending Aspartate Amino Transferase (AST) 37 U/L (13-40) Pending Total Bilirubin 0.4 mg/dL (0.2-1.0) Pending Urinalysis Test 08/14/24 12:07 08/16/24 12:55 Urine Color Colorless (Yellow) Urine Clarity Clear (Clear) Urine pH 5.5 (5.0-9.0) Urine Specific [place] 1.013 (1.001-1.035) Urine Protein Negative (Negative) Urine Ketones Negative (Negative) Urine Blood 1+ /uL (Negative) H Urine Nitrite Negative (Negative) Urine Bilirubin Negative (Negative) Urine Urobilinogen Normal mg/dL (Negative) Urine Leukocyte Esterase Negative /uL (Negative) Urine RBC 3 /hpf (0 - 4) Urine WBC <1 /hpf (0 - 5) Urine Squamous Epithelial Cells Few /hpf (<5) Urine Bacteria Few /hpf (None Seen) H Urine Glucose Normal mg/dL (Normal) Urine Creatinine 242.96 mg/dL (30.0-125.0) H Urine Protein/Creatinine Ratio 1.09 Urine Sodium 13 mmol/L (40-220) L Urine Total Protein 265.4 mg/dL (1-14) H Blood Gas Results Test 08/28/24 07:34 Arterial Blood pH 7.402 (7.350-7.450) FiO2 % 40.0 Microbiology Microbiology Date/Time Source Procedure Growth Status 08/24/24 08:40 Blood Blood Culture - Preliminary NO GROWTH AFTER 72 HOURS OF INCUBATION. Resulted 08/16/24 11:57 Sputum Gram Stain - Final Complete 08/16/24 11:57 Respiratory Culture - Final Beta Strep Non-A, Non-B Complete 08/16/24 01:00 Urine - Midstream Clean Catch Urine Culture - Final Complete 08/15/24 13:32 Nose MRSA Screen - Final Complete Labs and/or images reviewed: Labs reviewed by me, Image(s) reviewed by me Assessment/Plan Assessment/Plan Impression: -acute pancreatitis secondary to hypertriglyceridemia -abdominal compartment syndrome -acute hypoxic respiratory failure -anemia -gap acidosis -ascites -pleural effusions -sepsis Plan: Events: No events overnight. Patient has persistent elevated abdominal pressures. Accelerated hypertension. We will continue rocuronium per surgery. Discontinue insulin drip. -stop insulin drip, regular insulin sliding scale -continue current sedation -continue TPN -repeat lipid panel tomorrow -pain management: Continue fentanyl drip, p.r.n. Dilaudid -antihypertensives: Had clonidine patch 0.2. Continue p.r.n. IV labetalol -surgical consultation: Recommendations reviewed -repeat labs, chest x-ray, ABG in a.m. Critical care time spent with patient discussing and formulating plan of care: 40 minutes. This does not include time spent performing procedures. This medical document was created using an electronic medical record system with [employer] dictation system. Although this document has been carefully reviewed, there may still be some phonetic and typographical errors. These areas are purely typographical due to imperfections of the software programs, and do not reflect any compromise in the patient's medical care. Plan discussed with: Patient, Other (RN) My Orders Orders - LAURA TAYLOR NP Procedure Category Date Status Time D5w/Sod Chlo 0.9% PHA 08/27/24 In Process (D5w Ns 0.9%) 09:15 Furosemide Injection PHA 08/27/24 In Process (Lasix Injection) 18:00 Communication Order ORDERS 08/27/24 Transmitted 08:22 Communication Order ORDERS 08/28/24 Transmitted 08:39 Clonidine 0.2mg/24hr PHA 08/28/24 Transmitted 7day Patc ([facility] 09:00 Date of Service: Aug 28, 2024 Billing Provider: LAURA TAYLOR NP Common Visit Codes: [id number] INP/OBS CARE(HIGH) LAURA TAYLOR NP Aug 28, 2024 09:04
[2024-08-28] MEDS ORDERED: DEXTROSE (50%) 50ML SYRG IV PRN (09:15)
[2024-08-28] MEDS: cloNIDine 0.2 mg/24hr 7DAY PATCH TD ONE (09:44)
[2024-08-28] MEDS: DOXYCYCLINE 100MG/250ML 250 ML IV SCH (11:04)
[2024-08-28] MEDS: InsuLIN REG 1unit/0.01ml Soln (100units/ml) SC SCH (12:07)
[2024-08-28] MEDS: ACCU-CHEK COMFORT CURVE STRIP VI SCH (12:12)
--- NOTE | 2024-08-28 13:44 | DVHPN2 ---
Progress Note Date Seen: Aug 28, 2024 Has the PT tested + for MRSA If YES, has PT been informed?: No Medical Necessity Reason Pt with a Central, PICC or Fol: Yes The following are medically ne: Central Line, Gutierrez Catheter Reason for gutierrez catheter: Strict I&O Objective vital signs Vital Sign Date Time Temp Pulse Resp B/P (MAP) Pulse Ox O2 Delivery O2 Flow Rate FiO2 08/28/24 13:38 35 08/28/24 13:38 108 08/28/24 13:38 23 99 Mechanical Ventilator+ 08/28/24 13:03 134/82 08/28/24 10:15 97.9 208.2 Total Intake and Output 08/27/24 08/27/24 08/28/24 15:00 23:00 07:00 Intake Total 1921.814 ml 1661.237 ml 1725.327 ml Output Total 1900 ml 4750 ml Balance 1921.814 ml -238.763 ml -3024.673 ml medications Current Medications Medications Dose Ordered Sig/Snow Route Start Time Stop Time Status Last Admin Dose Admin Sodium Chloride 10 ml Q8HR IV 08/14/24 22:00 08/28/24 12:12 10 ML Pantoprazole Sodium 40 mg DAILY IV 08/15/24 10:00 08/28/24 09:44 40 MG Ergocalciferol 50,000 unit Q7D PO 08/15/24 10:00 08/15/24 08:53 50,000 UNIT Dextrose 50 ml UD PRN IV 08/15/24 12:45 Midazolam HCl 50 ml @ 1 mls/hr Q24H IV 08/16/24 11:30 08/28/24 10:25 15 MLS/HR Dexmedetomidine HCl 400 mcg/ Dextrose 100 ml @ 3.695 mls/ hr Q24H IV 08/17/24 02:45 08/28/24 13:03 12.933 MLS/HR Acetaminophen 650 mg Q8HPRN PRN SC 08/17/24 04:15 08/22/24 14:10 650 MG Calcitriol 1 mcg EOD IV 08/17/24 10:00 08/27/24 09:32 1 MCG Norepinephrine Bitartrate 250 ml @ 3.75 mls/hr Q24H IV 08/17/24 09:30 08/19/24 11:29 7.5 MLS/HR Amino Acids 0 ml @ 0 mls/hr PER PHARMACY IV 08/19/24 14:45 Sodium Chloride 10 ml QSHIFT@10,22 IV 08/19/24 22:00 08/28/24 09:45 10 ML Insulin Human (Reg)/Sodium Chloride 100 ml 1945 IV 08/21/24 19:45 UNV Diagnostic Test (Pha) 1 strip Q2HR 08/22/24 10:00 08/28/24 08:01 1 STRIP Fentanyl Citrate 250 ml @ 2.5 mls/hr Q24H IV 08/22/24 12:15 08/28/24 12:34 50 MLS/HR Acetaminophen 1,000 mg Q6HPRN PRN IV 08/22/24 23:15 08/25/24 09:05 1,000 MG Meropenem 50 ml @ 17 mls/hr Q8H IV 08/23/24 13:00 08/28/24 12:25 17 MLS/HR Micafungin Sodium 100 mg/Sodium Chloride 100 ml @ 100 mls/hr DAILY IV 08/24/24 10:00 08/28/24 09:45 100 MLS/HR Hydromorphone HCl 1.5 mg Q3HPRN PRN IV 08/24/24 10:30 08/28/24 03:54 1.5 MG Rocuronium [place] 50 mg Q3HR PRN IV 08/24/24 10:30 08/25/24 06:08 50 MG Rocuronium [place] 1000 mg/ Dextrose 250 ml @ 10.08 mls/ hr Q24H IV 08/25/24 07:30 08/28/24 04:50 6.03 MLS/HR Hydralazine HCl 10 mg Q6HP PRN IV 08/25/24 17:30 08/28/24 10:44 10 MG Propofol 100 ml @ 2.694 mls/ hr Q24H IV 08/26/24 11:00 08/28/24 07:56 8.082 MLS/HR Labetalol HCl 10 mg Q2HPRN PRN IV 08/26/24 17:00 08/28/24 10:14 10 MG Dextrose/Sodium Chloride 1,000 ml @ 50 mls/hr Q20H IV 08/27/24 09:15 08/28/24 04:51 50 MLS/HR Furosemide 40 mg BIDD IV 08/27/24 18:00 08/28/24 05:29 40 MG Sodium Acetate 80 meq/Potassium Phosphate 22 meq/ Calcium Gluconate 2.3 meq/Magnesium Sulfate 24 meq/ Multivitamins 10 ml/Chromium/ Copper/Manganese/ Zinc 1 ml/Amino Acids/Dextrose 1,166.9462 ml @ 48 mls/hr [id number] IV 08/27/24 22:00 08/28/24 21:59 08/27/24 20:28 48 MLS/HR Diagnostic Test (Pha) 1 strip Q6HR 08/28/24 12:00 08/28/24 12:12 1 STRIP Insulin Human Regular Q6HR SC 08/28/24 12:00 08/28/24 12:07 6 UNITS Dextrose 50 ml UD PRN IV 08/28/24 09:15 Doxycycline Hyclate 250 ml @ 125 mls/hr Q12H IV 08/28/24 11:00 08/28/24 11:04 125 MLS/HR Sodium Acetate 80 meq/Potassium Chloride 10 meq/ Calcium Gluconate 2.3 meq/Magnesium Sulfate 24 meq/ Multivitamins 10 ml/Chromium/ Copper/Manganese/ Zinc 1 ml/Amino Acids/Dextrose 1,066.9462 ml @ 44 mls/hr [id number] IV 08/28/24 22:00 08/29/24 21:59 laboratory and microbiology Laboratory Tests 08/28/24 08:36 08/28/24 03:39 Test 08/28/24 08:36 Range/Units Serum Glucose 199 H 74-106 mg/dL Problem List/Assessment/Plan Problem List/Assessment/Plan 08/19/24 ABDOMINAL PRESXURE IMPROVED, DRESSING DRY, SEROUS DRAINAGE, WILL TAKE TO O.R. MONDAY TO LAVAGE AND RE DRESS, POSSIBLY PLACE FASCIAL SUTURES 08/22/24 ABDOMEN LESS TENSE, DRESSING APPLIED, WILL CONSIDER CLOSURE OF ABDOMEN SOON. 08/23/24 abdomen still quite tense, leukocytosis, fever, urine output adequate, needs to have abdominal pressure determined q 6 hours(informed nurse), possibly return to OR on Monday to close the abdomen if pressures normal. 08/25/24 ABDOMINAL PRESSURE 7, LEUKOCYTOSIS AND FEVER PERSIST, WILL ATTEMPT ABDOMINAL CLOSURE TOMORROW 08/27/24 FEBRILE, ELEVATED WBC, ABDOMEN NONDISTENDED, GOOD URINE OUTPUT, DRESSING DRY 08/28/24 PATIENT'S MOTHER AT BEDSIDE, QUESTIONS ANSWERED, ABDOMEN LESS TENSE, PRESSURE 20, WOUND CLEAN AND WELL APPROXIMATED, KEEP ON ROCURONIUM DRIP TILL ABDOMINAL PRESSURES LESS THAN 15, GOOD URINE OUTPUT Plan discussed with: Other Dietary Evaluation Review Comments: 1) Increase TPN to meet at least 75% of estimated needs 2) Advance pt diet when medically feasible to a Low Fat diet 3) Continue current plan of care Expected Outcomes/Goals: 1) Pt diet to advance 2) Pt labs to improve 3) F/U in 2-3 days MARILYN OJEDA MD Aug 28, 2024 13:44
--- NOTE | 2024-08-28 21:21 | DVHPN2 ---
Progress Note - Dictate Date Seen: Aug 28, 2024 Has the PT tested + for MRSA If YES, has PT been informed?: No Medical Necessity Reason Pt with a Central, PICC or Fol: Yes The following are medically ne: Central Line, Gutierrez Catheter Reason for gutierrez catheter: Strict I&O Subjective Patient seen and examined at bedside. Sedated, intubated on mechanical ventilator. Overnight events reviewed. vital signs Vital Sign Date Time Temp Pulse Resp B/P (MAP) Pulse Ox O2 Delivery O2 Flow Rate FiO2 08/28/24 20:45 98.8 93 22 93/37 (55) 96 209.8 08/28/24 20:00 35 08/28/24 18:22 Mechanical Ventilator+ Total Intake and Output 08/27/24 08/27/24 08/28/24 15:00 23:00 07:00 Intake Total 1921.814 ml 1661.237 ml 1725.327 ml Output Total 1900 ml 4750 ml Balance 1921.814 ml -238.763 ml -3024.673 ml medications Current Medications Medications Dose Ordered Sig/Snow Route Start Time Stop Time Status Last Admin Dose Admin Sodium Chloride 10 ml Q8HR IV 08/14/24 22:00 08/28/24 12:12 10 ML Pantoprazole Sodium 40 mg DAILY IV 08/15/24 10:00 08/28/24 09:44 40 MG Ergocalciferol 50,000 unit Q7D PO 08/15/24 10:00 08/15/24 08:53 50,000 UNIT Dextrose 50 ml UD PRN IV 08/15/24 12:45 Midazolam HCl 50 ml @ 1 mls/hr Q24H IV 08/16/24 11:30 08/28/24 20:27 15 MLS/HR Dexmedetomidine HCl 400 mcg/ Dextrose 100 ml @ 3.695 mls/ hr Q24H IV 08/17/24 02:45 08/28/24 13:03 12.933 MLS/HR Acetaminophen 650 mg Q8HPRN PRN VT 08/17/24 04:15 08/22/24 14:10 650 MG Calcitriol 1 mcg EOD IV 08/17/24 10:00 08/27/24 09:32 1 MCG Norepinephrine Bitartrate 250 ml @ 3.75 mls/hr Q24H IV 08/17/24 09:30 11/11/24 11:29 7.5 MLS/HR Amino Acids 0 ml @ 0 mls/hr PER PHARMACY IV 08/19/24 14:45 Sodium Chloride 10 ml QSHIFT@10,22 IV 08/19/24 22:00 08/28/24 09:45 10 ML Insulin Human (Reg)/Sodium Chloride 100 ml 1945 IV 08/21/24 19:45 UNV Fentanyl Citrate 250 ml @ 2.5 mls/hr Q24H IV 08/22/24 12:15 08/28/24 18:03 50 MLS/HR Acetaminophen 1,000 mg Q6HPRN PRN IV 08/22/24 23:15 08/28/24 18:07 1,000 MG Meropenem 50 ml @ 17 mls/hr Q8H IV 08/23/24 13:00 08/28/24 20:31 17 MLS/HR Micafungin Sodium 100 mg/Sodium Chloride 100 ml @ 100 mls/hr DAILY IV 08/24/24 10:00 08/28/24 09:45 100 MLS/HR Hydromorphone HCl 1.5 mg Q3HPRN PRN IV 08/24/24 10:30 08/28/24 03:54 1.5 MG Rocuronium [place] 50 mg Q3HR PRN IV 08/24/24 10:30 08/25/24 06:08 50 MG Rocuronium [place] 1000 mg/ Dextrose 250 ml @ 10.08 mls/ hr Q24H IV 08/25/24 07:30 08/28/24 04:50 6.03 MLS/HR Hydralazine HCl 10 mg Q6HP PRN IV 08/25/24 17:30 08/28/24 10:44 10 MG Propofol 100 ml @ 2.694 mls/ hr Q24H IV 08/26/24 11:00 08/28/24 18:24 8.082 MLS/HR Labetalol HCl 10 mg Q2HPRN PRN IV 08/26/24 17:00 08/28/24 10:14 10 MG Dextrose/Sodium Chloride 1,000 ml @ 50 mls/hr Q20H IV 08/27/24 09:15 08/28/24 04:51 50 MLS/HR Furosemide 40 mg BIDD IV 08/27/24 18:00 08/28/24 17:34 40 MG Sodium Acetate 80 meq/Potassium Phosphate 22 meq/ Calcium Gluconate 2.3 meq/Magnesium Sulfate 24 meq/ Multivitamins 10 ml/Chromium/ Copper/Manganese/ Zinc 1 ml/Amino Acids/Dextrose 1,166.9462 ml @ 48 mls/hr [id number] IV 08/27/24 22:00 08/28/24 21:59 08/27/24 20:28 48 MLS/HR Diagnostic Test (Pha) 1 strip Q6HR 08/28/24 12:00 08/28/24 17:54 1 STRIP Insulin Human Regular Q6HR SC 08/28/24 12:00 08/28/24 17:52 3 UNITS Dextrose 50 ml UD PRN IV 08/28/24 09:15 Doxycycline Hyclate 250 ml @ 125 mls/hr Q12H IV 08/28/24 11:00 08/28/24 11:04 125 MLS/HR Sodium Acetate 80 meq/Potassium Chloride 10 meq/ Calcium Gluconate 2.3 meq/Magnesium Sulfate 24 meq/ Multivitamins 10 ml/Chromium/ Copper/Manganese/ Zinc 1 ml/Amino Acids/Dextrose 1,066.9462 ml @ 44 mls/hr [id number] IV 08/28/24 22:00 08/29/24 21:59 objective Gen.: Patient lying in bed in medical ICU. Sedated, intubated on mechanical ventilator. Head: Normocephalic, atraumatic. Eyes: PERRLA. Ears: Normal external anatomy. Throat: Endotracheal tube and orogastric tube in place. Neck: Supple, trachea midline. Chest: Transmitted breath sounds bilaterally. Decreased air entry bilaterally. No wheezing. Bibasilar crackles. Cardiovascular: Positive S1, positive S2. Regular rate and rhythm. Abdomen: Positive bowel sounds in all 4 quadrants. Soft, nontender, nondistended. : Gutierrez in place. Normal external genitalia. Rectal: Deferred. Skin: Warm, dry. Intact. Extremities: 2+ radial pulses bilaterally. No lower extremity edema. Neuro: Sedated. laboratory and microbiology Laboratory Tests 08/28/24 08:36 08/28/24 03:39 Test 08/28/24 08:36 Range/Units Serum Glucose 199 H 74-106 mg/dL Assessment/Plan Impression: Acute hypoxic respiratory failure On mechanical ventilator Hypertriglyceridemia induced acute pancreatitis Hypocalcemia Hypophosphatemia Peritonitis Acute abdomen Ascites Hyponatremia due to hypotonic IV fluid Vitamin-D deficiency Hypomagnesemia Hyperparathyroidism immune Mosque diffuse plasmapheresis Lactic acidosis, improving Events: Remains on vent support On assist control mode with respiratory rate of 22, tidal volume 450, PEEP of 5, FiO2 of 35%. On Rocuronium drip. Sedated on Fentanyl, Propofol. On Precedex drip Continue antibiotics -meropenem, Zyvox Continue micafungin Hydralazine 10 mg q.6 hours PRN SBP >160 mmHg TPN for nutritional support IV fluids with D5-NS. Wound care Surgery recommendations appreciated. TPN for nutritional support Monitor hemoglobin Diurese w/ Lasix as tolerated Monitor renal function Monitor abdominal pressures. Follow up Surgery recs Poor prognosis. Labs and imaging reviewed. Rest of plan as noted below. Plan: s/p intubation on mechanical ventilator On assist control mode with respiratory rate of 22, tidal volume 450, PEEP of 5, FiO2 of 35%. Titrate FIO2 to keep O2 saturation above 92%. VAP bundle Daily ABG and CXR while intubated. Sedate for ventilatory synchrony. Start pressors for hemodynamic support if necessary. Keep MAP above 65 mmHg/SBP above 90 mmHg. Continue broad spectrum antibiotics. F/u cultures. Monitor renal function due to Acute kidney injury. Monitor electrolytes. Supplement as necessary. Received calcium gluconate Potassium, calcium and magnesium were supplemented. Continue IV fluids Accu-cheks, on insulin drip. Abdomen was severely distended. Limited ultrasound of the abdomen revealed no pocket amenable for paracentesis. Recommended for RN to check bladder pressure every 6 hours. Currently it was 16 mmHg. Surgery recommendations appreciated - we will consider emergent surgery if abdominal pressures exceeding 25 mmHg. Patient s/p surgical procedure to decompress abdomen on 08/26. GI/DVT prophylaxis. Condition: Critical Prognosis: Poor given multiple comorbidities. Rest of plan per hospitalist and other consultants. A total of 35 minutes of critical care time was spent reviewing the patient record, examining the patient, making a diagnostic and therapeutic plan, discussing this plan with the medical personnel, following up on diagnostic studies and following the patient for clinical stability excluding any and all procedures. At least 50% of this time was spent in direct, [id number] contact. Thank you Dr. Bedolla for allowing me to participate in this patient's care. Further recommendations will depend on patient's clinical course. Please do not hesitate to contact me if you have any questions or concerns. This medical document was created using an electronic medical record system with [employer] system. Although this document has been carefully reviewed, there may still be some phonetic and typographical errors. These areas are purely typographical due to imperfections of the software programs, and do not reflect any compromise in the patient's medical care. Dietary Evaluation Review Comments: 1) Increase TPN to meet at least 75% of estimated needs 2) Advance pt diet when medically feasible to a Low Fat diet 3) Continue current plan of care Expected Outcomes/Goals: 1) Pt diet to advance 2) Pt labs to improve 3) F/U in 2-3 days Plan discussed with: Other (ANDRES Franco) Critical Care Time(min): 35 JUDE REN MD Aug 28, 2024 21:21
[2024-08-28] MEDS: TPN PER PHARMACY IV NR (21:55)
[2024-08-29] VITALS (115 sets, daily range): BP systolic 96–208; BP diastolic 44–130; PULSE 90–133; RESP 22–26; TEMP 98.4–100.8; O2SAT 94–100
[2024-08-29 03:52] LABS: Hematocrit 26.1 % (36.0-46.0); Hemoglobin 8.5 g/dL (12.2-16.2); Mean Corpuscular Hemoglobin 28.5 pg (28.0-32.0); Mean Corpuscular Hgb Conc. 32.6 g/dL (32.0-36.0); Mean Corpuscular Volume 87.5 fL (80.0-100.0); Platelet Count (auto) 211 10^3/uL (140-450); Red Blood Cells 2.98 10^6/uL (4.0-5.20); Red Cell Distribution Width 15.1 % (11.8-14.3); White Blood Cell 20.1 10^3/uL (4.4-10.8)
[2024-08-29 04:06] LABS: Basophils % (manual) 0 (0.0-2.0); Blast Cells 0; Metamyelocytes % 0; Promyelocytes % 0; Reactive Lymphocytes 0
[2024-08-29 04:09] LABS: Alanine Aminotransferase 30 U/L (7-40); Albumin 3.1 g/dL (3.2-4.8); Alkaline Phosphatase 80 U/L (46-116); Anion Gap 7 (5-15); Aspartate Aminotransferase 35 U/L (13-40); BUN/Creatinine Ratio 29.3 (10.0-20.0); Bilirubin, Total 0.6 mg/dL (0.2-1.0); Blood Urea Nitrogen 22 mg/dL (9-23); Calcium 8.9 mg/dL (8.7-10.4); Carbon Dioxide 31 mmol/L (20-31); Chloride 99 mmol/L (98-107); Glucose 177 mg/dL (74-106); Magnesium 1.9 mg/dL (1.6-2.6); Phosphorus 4.8 mg/dL (2.4-5.1); Potassium 4.9 mmol/L (3.5-5.1); Sodium 137 mmol/L (136-145); Total Protein 5.4 g/dL (5.7-8.2)
[2024-08-29 04:21] LABS: Triglycerides 384 mg/dL (< 150)
[2024-08-29 04:22] LABS: LDL Cholesterol 31 mg/dL (< 100)
[2024-08-29 04:24] LABS: Cholesterol 114 mg/dL (< 200); HDL Cholesterol 18 mg/dL (40-59)
--- NOTE | 2024-08-29 05:24 | DVH ---
CHEST RADIOGRAPH Indication: PT INTUBATED Technique: Single frontal view of the chest was obtained COMPARISON: XY CHEST PORTABLE on DOS: 08/27/24, XY CHEST PORTABLE on DOS: 08/26/24, XY CHEST XRAY 1 V IEW on DOS: 08/25/24 FINDINGS: Lines and Tubes: Endotracheal tube, enteric catheter and right central venous catheter and right PICC in satisfactory position. Lungs: Low lung volumes. Pleura: No effusion. No pneumothorax. Cardiomediastinal contours: Unremarkable Bones: Unremarkable IMPRESSION: Lines and tubes in satisfactory position. No significant interval change.
[2024-08-29 06:05] LABS: Band Neutrophils % (manual) 3; Eosinophils % (manual) 2 (0-7); Lymphocytes % (manual) 4 (10.0-50.0); Myelocytes % 2
[2024-08-29 06:06] LABS: Anisocytosis Slight; Monocytes % (manual) 4 (0-12); Platelet Estimate Adequate; Stomatocytes Few
[2024-08-29 07:19] LABS: Base Excess 5.3 mmol/L (-2.0-3.0)
--- NOTE | 2024-08-29 11:31 | DVHPN2 ---
Progress Note Date Seen: Aug 29, 2024 Has the PT tested + for MRSA If YES, has PT been informed?: No Medical Necessity Reason Pt with a Central, PICC or Fol: Yes The following are medically ne: Central Line, Gutierrez Catheter Reason for gutierrez catheter: Strict I&O Objective vital signs Vital Sign Date Time Temp Pulse Resp B/P (MAP) Pulse Ox O2 Delivery O2 Flow Rate FiO2 08/29/24 11:12 114 22 181/111 (134) 96 35 08/29/24 11:00 99.1 210.4 08/29/24 10:00 Mechanical Ventilator+ Total Intake and Output 08/28/24 08/28/24 08/29/24 15:00 23:00 07:00 Intake Total 1920.194 ml 1367.472 ml 1524.363 ml Output Total 2875 ml 3515 ml Balance 1920.194 ml -1507.528 ml -1990.637 ml medications Current Medications Medications Dose Ordered Sig/Snow Route Start Time Stop Time Status Last Admin Dose Admin Sodium Chloride 10 ml Q8HR IV 08/14/24 22:00 08/29/24 06:05 10 ML Pantoprazole Sodium 40 mg DAILY IV 08/15/24 10:00 08/29/24 09:34 40 MG Ergocalciferol 50,000 unit Q7D PO 08/15/24 10:00 08/15/24 08:53 50,000 UNIT Dextrose 50 ml UD PRN IV 08/15/24 12:45 Midazolam HCl 50 ml @ 1 mls/hr Q24H IV 08/16/24 11:30 08/29/24 05:11 15 MLS/HR Dexmedetomidine HCl 400 mcg/ Dextrose 100 ml @ 3.695 mls/ hr Q24H IV 08/17/24 02:45 08/29/24 05:43 12.933 MLS/HR Acetaminophen 650 mg Q8HPRN PRN CO 08/17/24 04:15 08/22/24 14:10 650 MG Calcitriol 1 mcg EOD IV 08/17/24 10:00 08/29/24 10:25 1 MCG Norepinephrine Bitartrate 250 ml @ 3.75 mls/hr Q24H IV 08/17/24 09:30 08/19/24 11:29 7.5 MLS/HR Amino Acids 0 ml @ 0 mls/hr PER PHARMACY IV 08/19/24 14:45 Sodium Chloride 10 ml QSHIFT@10,22 IV 08/19/24 22:00 08/29/24 09:34 10 ML Insulin Human (Reg)/Sodium Chloride 100 ml 1945 IV 08/21/24 19:45 UNV Fentanyl Citrate 250 ml @ 2.5 mls/hr Q24H IV 08/22/24 12:15 08/29/24 09:46 50 MLS/HR Acetaminophen 1,000 mg Q6HPRN PRN IV 08/22/24 23:15 08/29/24 09:03 1,000 MG Meropenem 50 ml @ 17 mls/hr Q8H IV 08/23/24 13:00 08/29/24 05:14 17 MLS/HR Micafungin Sodium 100 mg/Sodium Chloride 100 ml @ 100 mls/hr DAILY IV 08/24/24 10:00 08/29/24 09:35 100 MLS/HR Hydromorphone HCl 1.5 mg Q3HPRN PRN IV 08/24/24 10:30 08/29/24 05:42 1.5 MG Rocuronium [place] 50 mg Q3HR PRN IV 08/24/24 10:30 08/25/24 06:08 50 MG Rocuronium [place] 1000 mg/ Dextrose 250 ml @ 10.08 mls/ hr Q24H IV 08/25/24 07:30 08/29/24 10:25 7.92 MLS/HR Hydralazine HCl 10 mg Q6HP PRN IV 08/25/24 17:30 08/28/24 10:44 10 MG Propofol 100 ml @ 2.694 mls/ hr Q24H IV 08/26/24 11:00 08/29/24 06:03 8.082 MLS/HR Labetalol HCl 10 mg Q2HPRN PRN IV 08/26/24 17:00 08/29/24 09:00 10 MG Dextrose/Sodium Chloride 1,000 ml @ 50 mls/hr Q20H IV 08/27/24 09:15 08/29/24 01:02 50 MLS/HR Furosemide 40 mg BIDD IV 08/27/24 18:00 08/29/24 06:06 40 MG Diagnostic Test (Pha) 1 strip Q6HR 08/28/24 12:00 08/29/24 06:05 1 STRIP Insulin Human Regular Q6HR SC 08/28/24 12:00 08/29/24 06:01 3 UNITS Dextrose 50 ml UD PRN IV 08/28/24 09:15 Doxycycline Hyclate 250 ml @ 125 mls/hr Q12H IV 08/28/24 11:00 08/28/24 23:25 125 MLS/HR Sodium Acetate 80 meq/Potassium Chloride 10 meq/ Calcium Gluconate 2.3 meq/Magnesium Sulfate 24 meq/ Multivitamins 10 ml/Chromium/ Copper/Manganese/ Zinc 1 ml/Amino Acids/Dextrose 1,066.9462 ml @ 44 mls/hr [id number] IV 08/28/24 22:00 08/29/24 21:59 08/28/24 21:55 44 MLS/HR Sodium Chloride 90 meq/Calcium Gluconate 2.3 meq/ Magnesium Sulfate 26 meq/ Multivitamins 10 ml/Chromium/ Copper/Manganese/ Zinc 1 ml/Amino Acids/Dextrose 1,094.9462 ml @ 45 mls/hr [id number] IV 08/29/24 22:00 08/30/24 21:59 laboratory and microbiology Laboratory Tests 08/29/24 03:17 Test 08/29/24 03:17 Range/Units Serum Glucose 177 H 74-106 mg/dL Problem List/Assessment/Plan Problem List/Assessment/Plan 08/19/24 ABDOMINAL PRESXURE IMPROVED, DRESSING DRY, SEROUS DRAINAGE, WILL TAKE TO O.R. MONDAY TO LAVAGE AND RE DRESS, POSSIBLY PLACE FASCIAL SUTURES 08/22/24 ABDOMEN LESS TENSE, DRESSING APPLIED, WILL CONSIDER CLOSURE OF ABDOMEN SOON. 08/23/24 abdomen still quite tense, leukocytosis, fever, urine output adequate, needs to have abdominal pressure determined q 6 hours(informed nurse), possibly return to OR on Monday to close the abdomen if pressures normal. 08/25/24 ABDOMINAL PRESSURE 7, LEUKOCYTOSIS AND FEVER PERSIST, WILL ATTEMPT ABDOMINAL CLOSURE TOMORROW 08/27/24 FEBRILE, ELEVATED WBC, ABDOMEN NONDISTENDED, GOOD URINE OUTPUT, DRESSING DRY 08/28/24 PATIENT'S MOTHER AT BEDSIDE, QUESTIONS ANSWERED, ABDOMEN LESS TENSE, PRESSURE 20, WOUND CLEAN AND WELL APPROXIMATED, KEEP ON ROCURONIUM DRIP TILL ABDOMINAL PRESSURES LESS THAN 15, GOOD URINE OUTPUT 08/29/24 wound clean and well approximated, drainage serous, decreasing volume, labs reviewed, no changes indicated Plan discussed with: Other Dietary Evaluation Review Comments: 1) Increase TPN to meet at least 75% of estimated needs 2) Advance pt diet when medically feasible to a Low Fat diet 3) Continue current plan of care Expected Outcomes/Goals: 1) Pt diet to advance 2) Pt labs to improve 3) F/U in 2-3 days MARILYN OJEDA MD Aug 29, 2024 11:31
--- NOTE | 2024-08-29 12:37 | DVHPN2 ---
Subjective Chemically sedated Reviewed: Care Plan, H&P, Labs, Medications Changes from previous H/P or p: No Changes General: Per HPI Eyes: No Pain, No Vision change, No Conjunctivae inflammation, No Eyelid inflammation, No Other, No Redness ENT: No Ear pain, No Ear discharge, No Nose pain, No Nose discharge, No Nose congestion, No Mouth pain, No Mouth swelling, No Throat pain, No Throat swelling, No Other Cardiovascular: No Chest Pain, No Palpitations, No Orthopnea, No Paroxysmal Noc. Dyspnea, No Edema, No Lt Headedness, No Other Respiratory: No Cough, No Dry, No Shortness of breath, No SOB with excertion, No Wheezing, No Hemoptysis, No Pleuritic Pain, No Sputum, No Other Gastrointestinal: Nausea, Vomiting, Abdominal Pain, Diarrhea Genitourinary: No Dysuria, No Frequency, No Incontinence, No Hematuria, No Retention, No Other Musculoskeletal: No other, No neck pain, No shoulder pain, No arm pain, No back pain, No hand pain, No leg pain, No foot pain Skin: No Rash, No Lesions, No Jaundice, No Bruising, No Other Objective Vitals Vital Signs Date Time Temp Pulse Resp B/P (MAP) Pulse Ox O2 Delivery O2 Flow Rate FiO2 08/29/24 12:09 180/105 08/29/24 11:12 114 22 96 35 08/29/24 11:00 99.1 210.4 08/29/24 10:00 Mechanical Ventilator+ Intake/Output Intake and Output 08/29/24 07:00 Intake Total 4812.029 ml Output Total 6390 ml Balance -1577.971 ml Intake Oral 0 ml IV Total 4812.029 ml Output Urine Total 5600 ml Gastric Drainage Total 500 ml Other 290 ml General Appearance: moderate distress, Other (Patient sedated and paralyzed) HEENT: Atraumatic, PERRLA Lungs: Clear to auscultation, Normal air movement, Other (Mechanical ventilation) Cardiovascular: Normal S1, Normal S2 Abdomen: Other (Hypoactive bowel sounds. Greater than serosanguineous drainage. SOLIS drain x 2. ) Genitourinary: No Apparent Abnormalities (Sparrow catheterization) Musculoskeletal: Other (Unable to assess) Skin: Dry, Intact Psych/Mental Status: Other (Unable to assess) Medications Current Medications Medications Dose Ordered Sig/Snow Route Start Time Stop Time Status Last Admin Dose Admin Sodium Chloride 10 ml Q8HR IV 08/14/24 22:00 08/29/24 06:05 10 ML Pantoprazole Sodium 40 mg DAILY IV 08/15/24 10:00 08/29/24 09:34 40 MG Ergocalciferol 50,000 unit Q7D PO 08/15/24 10:00 08/15/24 08:53 50,000 UNIT Dextrose 50 ml UD PRN IV 08/15/24 12:45 Midazolam HCl 50 ml @ 1 mls/hr Q24H IV 08/16/24 11:30 08/29/24 11:47 15 MLS/HR Dexmedetomidine HCl 400 mcg/ Dextrose 100 ml @ 3.695 mls/ hr Q24H IV 08/17/24 02:45 08/29/24 05:43 12.933 MLS/HR Acetaminophen 650 mg Q8HPRN PRN RI 08/17/24 04:15 08/22/24 14:10 650 MG Calcitriol 1 mcg EOD IV 08/17/24 10:00 08/29/24 10:25 1 MCG Norepinephrine Bitartrate 250 ml @ 3.75 mls/hr Q24H IV 08/17/24 09:30 08/19/24 11:29 7.5 MLS/HR Amino Acids 0 ml @ 0 mls/hr PER PHARMACY IV 08/19/24 14:45 Sodium Chloride 10 ml QSHIFT@10,22 IV 08/19/24 22:00 08/29/24 09:34 10 ML Insulin Human (Reg)/Sodium Chloride 100 ml 1945 IV 08/21/24 19:45 UNV Fentanyl Citrate 250 ml @ 2.5 mls/hr Q24H IV 08/22/24 12:15 08/29/24 09:46 50 MLS/HR Acetaminophen 1,000 mg Q6HPRN PRN IV 08/22/24 23:15 08/29/24 09:03 1,000 MG Meropenem 50 ml @ 17 mls/hr Q8H IV 08/23/24 13:00 08/29/24 05:14 17 MLS/HR Micafungin Sodium 100 mg/Sodium Chloride 100 ml @ 100 mls/hr DAILY IV 08/24/24 10:00 08/29/24 09:35 100 MLS/HR Hydromorphone HCl 1.5 mg Q3HPRN PRN IV 08/24/24 10:30 08/29/24 05:42 1.5 MG Rocuronium [place] 50 mg Q3HR PRN IV 08/24/24 10:30 08/25/24 06:08 50 MG Rocuronium [place] 1000 mg/ Dextrose 250 ml @ 10.08 mls/ hr Q24H IV 08/25/24 07:30 08/29/24 10:25 7.92 MLS/HR Hydralazine HCl 10 mg Q6HP PRN IV 08/25/24 17:30 08/29/24 12:09 10 MG Propofol 100 ml @ 2.694 mls/ hr Q24H IV 08/26/24 11:00 08/29/24 06:03 8.082 MLS/HR Labetalol HCl 10 mg Q2HPRN PRN IV 08/26/24 17:00 08/29/24 09:00 10 MG Dextrose/Sodium Chloride 1,000 ml @ 50 mls/hr Q20H IV 08/27/24 09:15 08/29/24 01:02 50 MLS/HR Furosemide 40 mg BIDD IV 08/27/24 18:00 08/29/24 06:06 40 MG Diagnostic Test (Pha) 1 strip Q6HR 08/28/24 12:00 08/29/24 12:01 1 STRIP Insulin Human Regular Q6HR SC 08/28/24 12:00 08/29/24 12:03 2 UNITS Dextrose 50 ml UD PRN IV 08/28/24 09:15 Doxycycline Hyclate 250 ml @ 125 mls/hr Q12H IV 08/28/24 11:00 08/29/24 11:45 125 MLS/HR Sodium Acetate 80 meq/Potassium Chloride 10 meq/ Calcium Gluconate 2.3 meq/Magnesium Sulfate 24 meq/ Multivitamins 10 ml/Chromium/ Copper/Manganese/ Zinc 1 ml/Amino Acids/Dextrose 1,066.9462 ml @ 44 mls/hr [id number] IV 08/28/24 22:00 08/29/24 21:59 08/28/24 21:55 44 MLS/HR Sodium Chloride 90 meq/Calcium Gluconate 2.3 meq/ Magnesium Sulfate 26 meq/ Multivitamins 10 ml/Chromium/ Copper/Manganese/ Zinc 1 ml/Amino Acids/Dextrose 1,094.9462 ml @ 45 mls/hr [id number] IV 08/29/24 22:00 08/30/24 21:59 Laboratory Results Laboratory Tests 08/29/24 03:17 Chemistry Test 08/29/24 03:17 Albumin 3.1 g/dL (3.2-4.8) L Calcium Level 8.9 mg/dL (8.7-10.4) Magnesium Level 1.9 mg/dL (1.6-2.6) Phosphorus Level 4.8 mg/dL (2.4-5.1) Total Protein 5.4 g/dL (5.7-8.2) L Lipid panel Test 08/29/24 03:17 Cholesterol Level 114 mg/dL (< 200) HDL Cholesterol 18 mg/dL (40-59) L Triglycerides Level 384 mg/dL (< 150) H LFT Test 08/29/24 03:17 Alanine Aminotransferase (ALT) 30 U/L (7-40) Alkaline Phosphatase 80 U/L (46-116) Aspartate Amino Transferase (AST) 35 U/L (13-40) Total Bilirubin 0.6 mg/dL (0.2-1.0) Urinalysis Test 08/14/24 12:07 08/16/24 12:55 Urine Color Colorless (Yellow) Urine Clarity Clear (Clear) Urine pH 5.5 (5.0-9.0) Urine Specific [place] 1.013 (1.001-1.035) Urine Protein Negative (Negative) Urine Ketones Negative (Negative) Urine Blood 1+ /uL (Negative) H Urine Nitrite Negative (Negative) Urine Bilirubin Negative (Negative) Urine Urobilinogen Normal mg/dL (Negative) Urine Leukocyte Esterase Negative /uL (Negative) Urine RBC 3 /hpf (0 - 4) Urine WBC <1 /hpf (0 - 5) Urine Squamous Epithelial Cells Few /hpf (<5) Urine Bacteria Few /hpf (None Seen) H Urine Glucose Normal mg/dL (Normal) Urine Creatinine 242.96 mg/dL (30.0-125.0) H Urine Protein/Creatinine Ratio 1.09 Urine Sodium 13 mmol/L (40-220) L Urine Total Protein 265.4 mg/dL (1-14) H Blood Gas Results Test 08/29/24 06:56 Arterial Blood pH 7.439 (7.350-7.450) FiO2 % 35.0 Microbiology Microbiology Date/Time Source Procedure Growth Status 08/24/24 08:40 Blood Blood Culture - Final NO GROWTH AFTER 5 DAYS OF INCUBATION. Complete 08/16/24 11:57 Sputum Gram Stain - Final Complete 08/16/24 11:57 Respiratory Culture - Final Beta Strep Non-A, Non-B Complete 08/16/24 01:00 Urine - Midstream Clean Catch Urine Culture - Final Complete 08/15/24 13:32 Nose MRSA Screen - Final Complete Labs and/or images reviewed: Labs reviewed by me, Image(s) reviewed by me Assessment/Plan Assessment/Plan Impression: -acute pancreatitis secondary to hypertriglyceridemia -abdominal compartment syndrome -acute hypoxic respiratory failure -anemia -gap acidosis -ascites -pleural effusions -sepsis Plan: Events: No events overnight. Abdominal pressure is 20 mmHg. Patient had hypertensive episode early this a.m.. Sugars controlled off insulin drip. -continue current sedation -continue TPN -continue aggressive IV diuresis. -repeat lipid panel tomorrow -pain management: Continue fentanyl drip, p.r.n. Dilaudid -antihypertensives: Add clonidine patch 0.2. Continue p.r.n. IV labetalol -surgical consultation: Recommendations reviewed -repeat labs, chest x-ray, ABG in a.m. Critical care time spent with patient discussing and formulating plan of care: 40 minutes. This does not include time spent performing procedures. This medical document was created using an electronic medical record system with [employer] dictation system. Although this document has been carefully reviewed, there may still be some phonetic and typographical errors. These areas are purely typographical due to imperfections of the software programs, and do not reflect any compromise in the patient's medical care. Plan discussed with: Patient, Other (Current) My Orders Orders - LAURA TAYLOR NP Procedure Category Date Status Time Abg W/ Co-Ox RT 08/29/24 Logged 06:00 Date of Service: Aug 29, 2024 Billing Provider: LAURA TAYLOR NP Common Visit Codes: 99404-[facility]EJEAL[facility] CARE 30-74 MIN LAURA TAYLOR NP Aug 29, 2024 12:37
[2024-08-29] MEDS: ARTIFICIAL TEARS 15ml EACHEYE PRN (14:39)
[2024-08-29] MEDS: BUMETANIDE 2.5mg/10ml (0.25 mg/ml) INJ IV SCH (17:43)
[2024-08-29] MEDS: TPN PER PHARMACY IV NR (21:31)
--- NOTE | 2024-08-29 21:33 | DVHPN2 ---
Progress Note - Dictate Date Seen: Aug 29, 2024 Has the PT tested + for MRSA If YES, has PT been informed?: No Medical Necessity Reason Pt with a Central, PICC or Fol: Yes The following are medically ne: Central Line, Gutierrez Catheter Reason for gutierrez catheter: Strict I&O Subjective Patient seen and examined at bedside. Sedated, intubated on mechanical ventilator. Overnight events reviewed. vital signs Vital Sign Date Time Temp Pulse Resp B/P (MAP) Pulse Ox O2 Delivery O2 Flow Rate FiO2 08/29/24 20:11 113/58 08/29/24 20:08 98 22 97 35 08/29/24 20:00 Mechanical Ventilator+ 08/29/24 19:45 99.0 210.2 Total Intake and Output 08/28/24 08/28/24 08/29/24 15:00 23:00 07:00 Intake Total 1920.194 ml 1367.472 ml 1524.363 ml Output Total 2875 ml 3515 ml Balance 1920.194 ml -1507.528 ml -1990.637 ml medications Current Medications Medications Dose Ordered Sig/Snow Route Start Time Stop Time Status Last Admin Dose Admin Sodium Chloride 10 ml Q8HR IV 08/14/24 22:00 08/29/24 14:07 10 ML Pantoprazole Sodium 40 mg DAILY IV 08/15/24 10:00 08/29/24 09:34 40 MG Ergocalciferol 50,000 unit Q7D PO 08/15/24 10:00 08/15/24 08:53 50,000 UNIT Midazolam HCl 50 ml @ 1 mls/hr Q24H IV 08/16/24 11:30 08/29/24 20:11 15 MLS/HR Dexmedetomidine HCl 400 mcg/ Dextrose 100 ml @ 3.695 mls/ hr Q24H IV 08/17/24 02:45 08/29/24 14:01 12.933 MLS/HR Acetaminophen 650 mg Q8HPRN PRN [place] 08/17/24 04:15 08/22/24 14:10 650 MG Calcitriol 1 mcg EOD IV 08/17/24 10:00 08/29/24 10:25 1 MCG Norepinephrine Bitartrate 250 ml @ 3.75 mls/hr Q24H IV 08/17/24 09:30 08/19/24 11:29 7.5 MLS/HR Amino Acids 0 ml @ 0 mls/hr PER PHARMACY IV 08/19/24 14:45 Sodium Chloride 10 ml QSHIFT@10,22 IV 08/19/24 22:00 08/29/24 09:34 10 ML Insulin Human (Reg)/Sodium Chloride 100 ml 1945 IV 08/21/24 19:45 UNV Fentanyl Citrate 250 ml @ 2.5 mls/hr Q24H IV 08/22/24 12:15 08/29/24 19:44 50 MLS/HR Acetaminophen 1,000 mg Q6HPRN PRN IV 08/22/24 23:15 08/29/24 09:03 1,000 MG Meropenem 50 ml @ 17 mls/hr Q8H IV 08/23/24 13:00 08/29/24 21:28 17 MLS/HR Micafungin Sodium 100 mg/Sodium Chloride 100 ml @ 100 mls/hr DAILY IV 08/24/24 10:00 08/29/24 09:35 100 MLS/HR Hydromorphone HCl 1.5 mg Q3HPRN PRN IV 08/24/24 10:30 08/29/24 05:42 1.5 MG Rocuronium [place] 50 mg Q3HR PRN IV 08/24/24 10:30 08/25/24 06:08 50 MG Rocuronium [place] 1000 mg/ Dextrose 250 ml @ 10.08 mls/ hr Q24H IV 08/25/24 07:30 08/29/24 10:25 7.92 MLS/HR Hydralazine HCl 10 mg Q6HP PRN IV 08/25/24 17:30 08/29/24 17:39 10 MG Propofol 100 ml @ 2.694 mls/ hr Q24H IV 08/26/24 11:00 08/29/24 18:56 8.082 MLS/HR Labetalol HCl 10 mg Q2HPRN PRN IV 08/26/24 17:00 08/29/24 16:27 10 MG Dextrose/Sodium Chloride 1,000 ml @ 50 mls/hr Q20H IV 08/27/24 09:15 08/29/24 19:52 50 MLS/HR Diagnostic Test (Pha) 1 strip Q6HR 08/28/24 12:00 08/29/24 18:00 1 STRIP Insulin Human Regular Q6HR SC 08/28/24 12:00 08/29/24 18:02 2 UNITS Dextrose 50 ml UD PRN IV 08/28/24 09:15 Doxycycline Hyclate 250 ml @ 125 mls/hr Q12H IV 08/28/24 11:00 08/29/24 11:45 125 MLS/HR Sodium Acetate 80 meq/Potassium Chloride 10 meq/ Calcium Gluconate 2.3 meq/Magnesium Sulfate 24 meq/ Multivitamins 10 ml/Chromium/ Copper/Manganese/ Zinc 1 ml/Amino Acids/Dextrose 1,066.9462 ml @ 44 mls/hr [id number] IV 08/28/24 22:00 08/29/24 21:59 08/28/24 21:55 44 MLS/HR Sodium Chloride 90 meq/Calcium Gluconate 2.3 meq/ Magnesium Sulfate 26 meq/ Multivitamins 10 ml/Chromium/ Copper/Manganese/ Zinc 1 ml/Amino Acids/Dextrose 1,094.9462 ml @ 45 mls/hr [id number] IV 08/29/24 22:00 08/30/24 21:59 08/29/24 21:31 45 MLS/HR Artificial Tears 1 drop Q2HP PRN EACHEYE 08/29/24 12:45 08/29/24 14:39 1 DROP Bumetanide 1 mg BIDD IV 08/29/24 18:00 08/29/24 17:43 1 MG objective Gen.: Patient lying in bed in medical ICU. Sedated, intubated on mechanical ventilator. Head: Normocephalic, atraumatic. Eyes: PERRLA. Ears: Normal external anatomy. Throat: Endotracheal tube and orogastric tube in place. Neck: Supple, trachea midline. Chest: Transmitted breath sounds bilaterally. Decreased air entry bilaterally. No wheezing. Bibasilar crackles. Cardiovascular: Positive S1, positive S2. Regular rate and rhythm. Abdomen: Positive bowel sounds in all 4 quadrants. Soft, nontender, nondistended. : Gutierrez in place. Normal external genitalia. Rectal: Deferred. Skin: Warm, dry. Intact. Extremities: 2+ radial pulses bilaterally. No lower extremity edema. Neuro: Sedated. laboratory and microbiology Laboratory Tests 08/29/24 03:17 Test 08/29/24 03:17 Range/Units Serum Glucose 177 H 74-106 mg/dL Assessment/Plan Impression: Acute hypoxic respiratory failure On mechanical ventilator Hypertriglyceridemia induced acute pancreatitis Hypocalcemia Hypophosphatemia Peritonitis Acute abdomen Ascites Hyponatremia due to hypotonic IV fluid Vitamin-D deficiency Hypomagnesemia Hyperparathyroidism immune Episcopal diffuse plasmapheresis Lactic acidosis, improving Events: Remains on vent support On assist control mode with respiratory rate of 22, tidal volume 450, PEEP of 5, FiO2 of 35%. On Rocuronium drip for paralytic. Sedated on Fentanyl, Propofol. On Precedex drip Continue antibiotics Hydralazine 10 mg q.6 hours PRN SBP >160 mmHg TPN for nutritional support IV fluids with D5-NS. Bladder pressures of 19-20 cmH2O. Surgery recommendations appreciated. Recommend to taper rocuronium as soon as surgeon agrees. Wound care Monitor hemoglobin Diurese w/ Lasix as tolerated Monitor renal function Labs and imaging reviewed. Rest of plan as noted below. Plan: s/p intubation on mechanical ventilator On assist control mode with respiratory rate of 22, tidal volume 450, PEEP of 5, FiO2 of 35%. Titrate FIO2 to keep O2 saturation above 92%. VAP bundle Daily ABG and CXR while intubated. Sedate for ventilatory synchrony. Start pressors for hemodynamic support if necessary. Keep MAP above 65 mmHg/SBP above 90 mmHg. Continue broad spectrum antibiotics. F/u cultures. Monitor renal function due to Acute kidney injury. Monitor electrolytes. Supplement as necessary. Received calcium gluconate Potassium, calcium and magnesium were supplemented. Continue IV fluids Accu-cheks, on insulin drip. Abdomen was severely distended. Limited ultrasound of the abdomen revealed no pocket amenable for paracentesis. Recommended for RN to check bladder pressure every 6 hours. Currently it was 16 mmHg. Surgery recommendations appreciated - we will consider emergent surgery if abdominal pressures exceeding 25 mmHg. Patient s/p surgical procedure to decompress abdomen on 08/26. GI/DVT prophylaxis. Condition: Critical Prognosis: Poor given multiple comorbidities. Rest of plan per hospitalist and other consultants. A total of 35 minutes of critical care time was spent reviewing the patient record, examining the patient, making a diagnostic and therapeutic plan, discussing this plan with the medical personnel, following up on diagnostic studies and following the patient for clinical stability excluding any and all procedures. At least 50% of this time was spent in direct, [id number] contact. Thank you Dr. Bedolla for allowing me to participate in this patient's care. Further recommendations will depend on patient's clinical course. Please do not hesitate to contact me if you have any questions or concerns. This medical document was created using an electronic medical record system with [employer] dictation system. Although this document has been carefully reviewed, there may still be some phonetic and typographical errors. These areas are purely typographical due to imperfections of the software programs, and do not reflect any compromise in the patient's medical care. Dietary Evaluation Review Comments: 1) Increase TPN to meet at least 75% of estimated needs 2) Advance pt diet when medically feasible to a Low Fat diet 3) Continue current plan of care Expected Outcomes/Goals: 1) Pt diet to advance 2) Pt labs to improve 3) F/U in 2-3 days Plan discussed with: Other (ANDRES Franco) Critical Care Time(min): 35 JUDE REN MD Aug 29, 2024 21:33
[2024-08-29] MEDS ORDERED: hydrALAZINE HCL 25 MG TAB GT SCH (22:00)
[2024-08-30] VITALS (115 sets, daily range): BP systolic 92–201; BP diastolic 38–127; PULSE 82–150; RESP 22–29; TEMP 97.9–99.9; O2SAT 93–100
[2024-08-30 04:06] LABS: Alanine Aminotransferase 26 U/L (7-40); Alkaline Phosphatase 73 U/L (46-116); Anion Gap 5 (5-15); BUN/Creatinine Ratio 34.3 (10.0-20.0); Blood Urea Nitrogen 24 mg/dL (9-23); Calcium 8.8 mg/dL (8.7-10.4); Carbon Dioxide 32 mmol/L (20-31); Chloride 100 mmol/L (98-107); Glucose 161 mg/dL (74-106); Magnesium 1.9 mg/dL (1.6-2.6); Potassium 3.8 mmol/L (3.5-5.1); Sodium 137 mmol/L (136-145)
[2024-08-30 04:07] LABS: Albumin 2.8 g/dL (3.2-4.8); Aspartate Aminotransferase 30 U/L (13-40); Bilirubin, Total 0.6 mg/dL (0.2-1.0); Phosphorus 4.2 mg/dL (2.4-5.1)
--- NOTE | 2024-08-30 04:44 | DVH ---
CHEST RADIOGRAPH Indication: INTUBATED Technique: Single frontal view of the chest was obtained Comparison: XY CHEST PORTABLE on DOS: 08/29/24 FINDINGS: Lines and Tubes: The endotracheal tube terminates above the peg. Right PICC terminates in the sup erior cavoatrial junction. Right central venous catheter terminates in the superior cavoatrial junct ion. There are surgical drains overlying the right and left upper quadrant. Lungs: Bilateral airspace disease. Pleura: Bilateral pleural effusions. No pneumothorax. Cardiomediastinal contours: Cardiomegaly. Bones: No acute osseous abnormality. IMPRESSION: 1. Stable position of the support lines and tubes. 2. Bilateral airspace disease. 3. Cardiomegaly.
[2024-08-30 06:32] LABS: Base Excess 5.2 mmol/L (-2.0-3.0)
--- NOTE | 2024-08-30 09:12 | DVHPN2 ---
Subjective Chemically sedated Reviewed: Care Plan, H&P, Labs, Medications Changes from previous H/P or p: No Changes General: Per HPI Eyes: No Pain, No Vision change, No Conjunctivae inflammation, No Eyelid inflammation, No Other, No Redness ENT: No Ear pain, No Ear discharge, No Nose pain, No Nose discharge, No Nose congestion, No Mouth pain, No Mouth swelling, No Throat pain, No Throat swelling, No Other Cardiovascular: No Chest Pain, No Palpitations, No Orthopnea, No Paroxysmal Noc. Dyspnea, No Edema, No Lt Headedness, No Other Respiratory: No Cough, No Dry, No Shortness of breath, No SOB with excertion, No Wheezing, No Hemoptysis, No Pleuritic Pain, No Sputum, No Other Gastrointestinal: Nausea, Vomiting, Abdominal Pain, Diarrhea Genitourinary: No Dysuria, No Frequency, No Incontinence, No Hematuria, No Retention, No Other Musculoskeletal: No other, No neck pain, No shoulder pain, No arm pain, No back pain, No hand pain, No leg pain, No foot pain Skin: No Rash, No Lesions, No Jaundice, No Bruising, No Other Objective Vitals Vital Signs Date Time Temp Pulse Resp B/P (MAP) Pulse Ox O2 Delivery O2 Flow Rate FiO2 08/30/24 08:30 98.4 94 22 125/68 (87) 96 209.1 08/30/24 08:28 35 08/30/24 08:00 Mechanical Ventilator+ Intake/Output Intake and Output 08/30/24 07:00 Intake Total 7650.551 ml Output Total 2440 ml Balance 5210.551 ml Intake Oral 3150 ml IV Total 4400.551 ml Intraperitoneal 100 ml Output Urine Total 2150 ml Gastric Drainage Total 150 ml Other 140 ml General Appearance: moderate distress, Other (Patient sedated and paralyzed) HEENT: Atraumatic, PERRLA Lungs: Clear to auscultation, Normal air movement, Other (Mechanical ventilation) Cardiovascular: Normal S1, Normal S2 Abdomen: Other (Hypoactive bowel sounds. Greater than serosanguineous drainage. SOLIS drain x 2. ) Genitourinary: No Apparent Abnormalities (Sparrow catheterization) Musculoskeletal: Other (Unable to assess) Skin: Dry, Intact Psych/Mental Status: Other (Unable to assess) Medications Current Medications Medications Dose Ordered Sig/Snow Route Start Time Stop Time Status Last Admin Dose Admin Sodium Chloride 10 ml Q8HR IV 08/14/24 22:00 08/30/24 05:10 10 ML Pantoprazole Sodium 40 mg DAILY IV 08/15/24 10:00 08/30/24 07:53 40 MG Ergocalciferol 50,000 unit Q7D PO 08/15/24 10:00 08/15/24 08:53 50,000 UNIT Midazolam HCl 50 ml @ 1 mls/hr Q24H IV 08/16/24 11:30 08/30/24 06:46 15 MLS/HR Dexmedetomidine HCl 400 mcg/ Dextrose 100 ml @ 3.695 mls/ hr Q24H IV 08/17/24 02:45 08/30/24 03:37 12.933 MLS/HR Acetaminophen 650 mg Q8HPRN PRN [place] 08/17/24 04:15 08/22/24 14:10 650 MG Calcitriol 1 mcg EOD IV 08/17/24 10:00 08/29/24 10:25 1 MCG Norepinephrine Bitartrate 250 ml @ 3.75 mls/hr Q24H IV 08/17/24 09:30 08/19/24 11:29 7.5 MLS/HR Amino Acids 0 ml @ 0 mls/hr PER PHARMACY IV 08/19/24 14:45 Sodium Chloride 10 ml QSHIFT@10,22 IV 08/19/24 22:00 08/30/24 07:44 10 ML Insulin Human (Reg)/Sodium Chloride 100 ml 1945 IV 08/21/24 19:45 UNV Fentanyl Citrate 250 ml @ 2.5 mls/hr Q24H IV 08/22/24 12:15 08/30/24 05:06 50 MLS/HR Acetaminophen 1,000 mg Q6HPRN PRN IV 08/22/24 23:15 08/29/24 09:03 1,000 MG Meropenem 50 ml @ 17 mls/hr Q8H IV 08/23/24 13:00 08/30/24 05:07 17 MLS/HR Micafungin Sodium 100 mg/Sodium Chloride 100 ml @ 100 mls/hr DAILY IV 08/24/24 10:00 08/30/24 07:53 100 MLS/HR Hydromorphone HCl 1.5 mg Q3HPRN PRN IV 08/24/24 10:30 08/29/24 05:42 1.5 MG Rocuronium [place] 50 mg Q3HR PRN IV 08/24/24 10:30 08/25/24 06:08 50 MG Rocuronium [place] 1000 mg/ Dextrose 250 ml @ 10.08 mls/ hr Q24H IV 08/25/24 07:30 08/29/24 10:25 7.92 MLS/HR Hydralazine HCl 10 mg Q6HP PRN IV 08/25/24 17:30 08/30/24 06:47 10 MG Propofol 100 ml @ 2.694 mls/ hr Q24H IV 08/26/24 11:00 08/30/24 05:31 8.082 MLS/HR Labetalol HCl 10 mg Q2HPRN PRN IV 08/26/24 17:00 08/30/24 05:58 10 MG Dextrose/Sodium Chloride 1,000 ml @ 50 mls/hr Q20H IV 08/27/24 09:15 08/29/24 19:52 50 MLS/HR Diagnostic Test (Pha) 1 strip Q6HR 08/28/24 12:00 08/30/24 07:53 1 STRIP Insulin Human Regular Q6HR SC 08/28/24 12:00 08/30/24 05:47 3 UNITS Dextrose 50 ml UD PRN IV 08/28/24 09:15 Doxycycline Hyclate 250 ml @ 125 mls/hr Q12H IV 08/28/24 11:00 08/30/24 00:19 125 MLS/HR Sodium Chloride 90 meq/Calcium Gluconate 2.3 meq/ Magnesium Sulfate 26 meq/ Multivitamins 10 ml/Chromium/ Copper/Manganese/ Zinc 1 ml/Amino Acids/Dextrose 1,094.9462 ml @ 45 mls/hr [id number] IV 08/29/24 22:00 08/30/24 21:59 08/29/24 21:31 45 MLS/HR Artificial Tears 1 drop Q2HP PRN EACHEYE 08/29/24 12:45 08/30/24 05:29 1 DROP Bumetanide 1 mg BIDD IV 08/29/24 18:00 08/30/24 05:49 1 MG Nicardipine HCl 250 ml @ 50 mls/hr Q5H IV 08/30/24 08:15 Laboratory Results Laboratory Tests 08/29/24 03:17 08/30/24 03:15 Chemistry Test 08/30/24 03:15 Albumin 2.8 g/dL (3.2-4.8) L Calcium Level 8.8 mg/dL (8.7-10.4) Magnesium Level 1.9 mg/dL (1.6-2.6) Phosphorus Level 4.2 mg/dL (2.4-5.1) Total Protein 5.0 g/dL (5.7-8.2) L LFT Test 08/30/24 03:15 Alanine Aminotransferase (ALT) 26 U/L (7-40) Alkaline Phosphatase 73 U/L (46-116) Aspartate Amino Transferase (AST) 30 U/L (13-40) Total Bilirubin 0.6 mg/dL (0.2-1.0) Urinalysis Test 08/14/24 12:07 08/16/24 12:55 Urine Color Colorless (Yellow) Urine Clarity Clear (Clear) Urine pH 5.5 (5.0-9.0) Urine Specific [place] 1.013 (1.001-1.035) Urine Protein Negative (Negative) Urine Ketones Negative (Negative) Urine Blood 1+ /uL (Negative) H Urine Nitrite Negative (Negative) Urine Bilirubin Negative (Negative) Urine Urobilinogen Normal mg/dL (Negative) Urine Leukocyte Esterase Negative /uL (Negative) Urine RBC 3 /hpf (0 - 4) Urine WBC <1 /hpf (0 - 5) Urine Squamous Epithelial Cells Few /hpf (<5) Urine Bacteria Few /hpf (None Seen) H Urine Glucose Normal mg/dL (Normal) Urine Creatinine 242.96 mg/dL (30.0-125.0) H Urine Protein/Creatinine Ratio 1.09 Urine Sodium 13 mmol/L (40-220) L Urine Total Protein 265.4 mg/dL (1-14) H Blood Gas Results Test 08/30/24 06:27 Arterial Blood pH 7.451 (7.350-7.450) FiO2 % 35.0 Microbiology Microbiology Date/Time Source Procedure Growth Status 08/24/24 08:40 Blood Blood Culture - Final NO GROWTH AFTER 5 DAYS OF INCUBATION. Complete 08/16/24 11:57 Sputum Gram Stain - Final Complete 08/16/24 11:57 Respiratory Culture - Final Beta Strep Non-A, Non-B Complete 08/16/24 01:00 Urine - Midstream Clean Catch Urine Culture - Final Complete 08/15/24 13:32 Nose MRSA Screen - Final Complete Labs and/or images reviewed: Labs reviewed by me, Image(s) reviewed by me Assessment/Plan Assessment/Plan Impression: -acute pancreatitis secondary to hypertriglyceridemia -abdominal compartment syndrome -acute hypoxic respiratory failure -anemia -gap acidosis -ascites -pleural effusions -sepsis Plan: Events: No events overnight. Abdominal pressure now 17 mmHg. Patient has persistent hypertensive issues. Nicardipine drip ordered as needed. Apparently, the patient's family is not happy with discussion with the surgeon, and once the patient transferred to [facility]. I, myself had a discussion with the patient's father regarding plan of care. All questions answered. If they continue to wish for transfer to other facility, social service consultation will be placed. -continue current sedation -continue TPN -continue aggressive IV diuresis. -repeat lipid panel tomorrow -pain management: Continue fentanyl drip, p.r.n. Dilaudid -antihypertensives: Add clonidine patch 0.2. Continue p.r.n. IV labetalol -surgical consultation: Recommendations reviewed -repeat labs, chest x-ray, ABG in a.m. Critical care time spent with patient discussing and formulating plan of care: 90 minutes. This does not include time spent performing procedures. This medical document was created using an electronic medical record system with [employer] dictation system. Although this document has been carefully reviewed, there may still be some phonetic and typographical errors. These areas are purely typographical due to imperfections of the software programs, and do not reflect any compromise in the patient's medical care. Plan discussed with: Patient, Other (RN, father) My Orders Orders - LAURA TAYLOR NP Procedure Category Date Status Time Artificial Tear 15ml PHA 08/29/24 In Process Opthalmic (Tears Na 12:45 Bumetanide Injection PHA 08/29/24 In Process (Bumex Injection) 18:00 Abg W/ Co-Ox RT 08/30/24 Logged 05:43 Nicardipine PHA 08/30/24 In Process 25mg/250ml Bag Kit 08:15 Date of Service: Aug 30, 2024 Billing Provider: LAURA TAYLOR NP Common Visit Codes: [id number] CARE 30-74 MIN, [id number] CARE-EACH +30MIN LAURA TAYLOR NP Aug 30, 2024 09:12
--- NOTE | 2024-08-30 09:28 | CODING ---
Date of Service: Aug 14, 2024 Billing Provider: SAMMY ROBLEDO MD Common Visit Codes: [id number] INP/OBS CARE (HIGH) SAMMY ROBLEDO MD Aug 30, 2024 09:28
--- NOTE | 2024-08-30 11:36 | DVHPN2 ---
Progress Note Date Seen: Aug 30, 2024 Has the PT tested + for MRSA If YES, has PT been informed?: No Medical Necessity Reason Pt with a Central, PICC or Fol: Yes The following are medically ne: Central Line, Gutierrez Catheter Reason for gutierrez catheter: Strict I&O Objective vital signs Vital Sign Date Time Temp Pulse Resp B/P (MAP) Pulse Ox O2 Delivery O2 Flow Rate FiO2 08/30/24 10:45 97.9 82 22 100/51 (67) 97 208.2 08/30/24 09:46 35 08/30/24 09:45 Mechanical Ventilator+ Total Intake and Output 08/29/24 08/29/24 08/30/24 15:00 23:00 07:00 Intake Total 1593.4 ml 4570.607 ml 1486.544 ml Output Total 180 ml 2260 ml Balance 1593.4 ml 4390.607 ml -773.456 ml medications Current Medications Medications Dose Ordered Sig/Snow Route Start Time Stop Time Status Last Admin Dose Admin Sodium Chloride 10 ml Q8HR IV 08/14/24 22:00 08/30/24 10:18 10 ML Pantoprazole Sodium 40 mg DAILY IV 08/15/24 10:00 08/30/24 07:53 40 MG Ergocalciferol 50,000 unit Q7D PO 08/15/24 10:00 08/15/24 08:53 50,000 UNIT Midazolam HCl 50 ml @ 1 mls/hr Q24H IV 08/16/24 11:30 08/30/24 09:29 15 MLS/HR Dexmedetomidine HCl 400 mcg/ Dextrose 100 ml @ 3.695 mls/ hr Q24H IV 08/17/24 02:45 08/30/24 09:37 12.933 MLS/HR Acetaminophen 650 mg Q8HPRN PRN [place] 08/17/24 04:15 08/22/24 14:10 650 MG Calcitriol 1 mcg EOD IV 08/17/24 10:00 08/29/24 10:25 1 MCG Norepinephrine Bitartrate 250 ml @ 3.75 mls/hr Q24H IV 08/17/24 09:30 08/19/24 11:29 7.5 MLS/HR Amino Acids 0 ml @ 0 mls/hr PER PHARMACY IV 08/19/24 14:45 Sodium Chloride 10 ml QSHIFT@10,22 IV 08/19/24 22:00 08/30/24 07:44 10 ML Insulin Human (Reg)/Sodium Chloride 100 ml 1945 IV 08/21/24 19:45 UNV Fentanyl Citrate 250 ml @ 2.5 mls/hr Q24H IV 08/22/24 12:15 08/30/24 09:32 50 MLS/HR Acetaminophen 1,000 mg Q6HPRN PRN IV 08/22/24 23:15 08/29/24 09:03 1,000 MG Meropenem 50 ml @ 17 mls/hr Q8H IV 08/23/24 13:00 08/30/24 05:07 17 MLS/HR Micafungin Sodium 100 mg/Sodium Chloride 100 ml @ 100 mls/hr DAILY IV 08/24/24 10:00 08/30/24 07:53 100 MLS/HR Hydromorphone HCl 1.5 mg Q3HPRN PRN IV 08/24/24 10:30 08/29/24 05:42 1.5 MG Rocuronium [place] 50 mg Q3HR PRN IV 08/24/24 10:30 08/25/24 06:08 50 MG Rocuronium [place] 1000 mg/ Dextrose 250 ml @ 10.08 mls/ hr Q24H IV 08/25/24 07:30 08/29/24 10:25 7.92 MLS/HR Hydralazine HCl 10 mg Q6HP PRN IV 08/25/24 17:30 08/30/24 06:47 10 MG Propofol 100 ml @ 2.694 mls/ hr Q24H IV 08/26/24 11:00 08/30/24 05:31 8.082 MLS/HR Labetalol HCl 10 mg Q2HPRN PRN IV 08/26/24 17:00 08/30/24 05:58 10 MG Dextrose/Sodium Chloride 1,000 ml @ 50 mls/hr Q20H IV 08/27/24 09:15 08/29/24 19:52 50 MLS/HR Diagnostic Test (Pha) 1 strip Q6HR 08/28/24 12:00 08/30/24 07:53 1 STRIP Insulin Human Regular Q6HR SC 08/28/24 12:00 08/30/24 05:47 3 UNITS Dextrose 50 ml UD PRN IV 08/28/24 09:15 Doxycycline Hyclate 250 ml @ 125 mls/hr Q12H IV 08/28/24 11:00 08/30/24 09:33 125 MLS/HR Sodium Chloride 90 meq/Calcium Gluconate 2.3 meq/ Magnesium Sulfate 26 meq/ Multivitamins 10 ml/Chromium/ Copper/Manganese/ Zinc 1 ml/Amino Acids/Dextrose 1,094.9462 ml @ 45 mls/hr [id number] IV 08/29/24 22:00 08/30/24 21:59 08/29/24 21:31 45 MLS/HR Artificial Tears 1 drop Q2HP PRN EACHEYE 08/29/24 12:45 08/30/24 05:29 1 DROP Bumetanide 1 mg BIDD IV 08/29/24 18:00 08/30/24 05:49 1 MG Nicardipine HCl 250 ml @ 50 mls/hr Q5H IV 08/30/24 08:15 Sodium Chloride 40 meq/Sodium Phosphate 40 meq/ Potassium Chloride 20 meq/ Potassium Phosphate 22 meq/ Magnesium Sulfate 30 meq/ Multivitamins 10 ml/Chromium/ Copper/Manganese/ Zinc 1 ml/Amino Acids/Dextrose 1,153.5 ml @ 48 mls/hr Q24H2M IV 08/30/24 22:00 08/31/24 21:59 laboratory and microbiology Laboratory Tests 08/30/24 03:15 08/29/24 03:17 Test 08/30/24 03:15 Range/Units Serum Glucose 161 H 74-106 mg/dL Problem List/Assessment/Plan Problem List/Assessment/Plan 08/19/24 ABDOMINAL PRESXURE IMPROVED, DRESSING DRY, SEROUS DRAINAGE, WILL TAKE TO O.R. MONDAY TO LAVAGE AND RE DRESS, POSSIBLY PLACE FASCIAL SUTURES 08/22/24 ABDOMEN LESS TENSE, DRESSING APPLIED, WILL CONSIDER CLOSURE OF ABDOMEN SOON. 08/23/24 abdomen still quite tense, leukocytosis, fever, urine output adequate, needs to have abdominal pressure determined q 6 hours(informed nurse), possibly return to OR on Monday to close the abdomen if pressures normal. 08/25/24 ABDOMINAL PRESSURE 7, LEUKOCYTOSIS AND FEVER PERSIST, WILL ATTEMPT ABDOMINAL CLOSURE TOMORROW 08/27/24 FEBRILE, ELEVATED WBC, ABDOMEN NONDISTENDED, GOOD URINE OUTPUT, DRESSING DRY 08/28/24 PATIENT'S MOTHER AT BEDSIDE, QUESTIONS ANSWERED, ABDOMEN LESS TENSE, PRESSURE 20, WOUND CLEAN AND WELL APPROXIMATED, KEEP ON ROCURONIUM DRIP TILL ABDOMINAL PRESSURES LESS THAN 15, GOOD URINE OUTPUT 08/29/24 wound clean and well approximated, drainage serous, decreasing volume, labs reviewed, no changes indicated 08/30/24 slow but noticeable improvement, abdomen less tense, wound clean and well approximated, good urine output, no bowel activity yet, continue as is Plan discussed with: Other Dietary Evaluation Review Comments: 1) Increase TPN to meet at least 75% of estimated needs 2) Advance pt diet when medically feasible to a Low Fat diet 3) Continue current plan of care Expected Outcomes/Goals: 1) Pt diet to advance 2) Pt labs to improve 3) F/U in 2-3 days MARILYN OJEDA MD Aug 30, 2024 11:36
--- NOTE | 2024-08-30 20:08 | DVHPN2 ---
Progress Note - Dictate Date Seen: Aug 30, 2024 Has the PT tested + for MRSA If YES, has PT been informed?: No Medical Necessity Reason Pt with a Central, PICC or Fol: Yes The following are medically ne: Central Line, Gutierrez Catheter Reason for gutierrez catheter: Strict I&O Subjective Patient seen and examined at bedside. Sedated, intubated on mechanical ventilator. Overnight events reviewed. vital signs Vital Sign Date Time Temp Pulse Resp B/P (MAP) Pulse Ox O2 Delivery O2 Flow Rate FiO2 08/30/24 19:27 126/57 08/30/24 18:49 105 08/30/24 18:40 98 Mechanical Ventilator+ 35 35 08/30/24 18:40 25 08/30/24 18:00 99.1 99.1 Total Intake and Output 08/29/24 08/29/24 08/30/24 15:00 23:00 07:00 Intake Total 1593.4 ml 4570.607 ml 1536.544 ml Output Total 180 ml 2260 ml Balance 1593.4 ml 4390.607 ml -723.456 ml medications Current Medications Medications Dose Ordered Sig/Snow Route Start Time Stop Time Status Last Admin Dose Admin Sodium Chloride 10 ml Q8HR IV 08/14/24 22:00 08/30/24 10:18 10 ML Pantoprazole Sodium 40 mg DAILY IV 08/15/24 10:00 08/30/24 07:53 40 MG Ergocalciferol 50,000 unit Q7D PO 08/15/24 10:00 08/15/24 08:53 50,000 UNIT Midazolam HCl 50 ml @ 1 mls/hr Q24H IV 08/16/24 11:30 08/30/24 16:46 15 MLS/HR Dexmedetomidine HCl 400 mcg/ Dextrose 100 ml @ 3.695 mls/ hr Q24H IV 08/17/24 02:45 08/30/24 19:27 12.933 MLS/HR Acetaminophen 650 mg Q8HPRN PRN [place] 08/17/24 04:15 08/22/24 14:10 650 MG Calcitriol 1 mcg EOD IV 08/17/24 10:00 08/29/24 10:25 1 MCG Norepinephrine Bitartrate 250 ml @ 3.75 mls/hr Q24H IV 08/17/24 09:30 08/19/24 11:29 7.5 MLS/HR Amino Acids 0 ml @ 0 mls/hr PER PHARMACY IV 08/19/24 14:45 Sodium Chloride 10 ml QSHIFT@10, IV 08/19/24 22:00 08/30/24 07:44 10 ML Insulin Human (Reg)/Sodium Chloride 100 ml 1945 IV 08/21/24 19:45 UNV Fentanyl Citrate 250 ml @ 2.5 mls/hr Q24H IV 08/22/24 12:15 08/30/24 18:27 50 MLS/HR Acetaminophen 1,000 mg Q6HPRN PRN IV 08/22/24 23:15 08/29/24 09:03 1,000 MG Meropenem 50 ml @ 17 mls/hr Q8H IV 08/23/24 13:00 08/30/24 12:03 17 MLS/HR Micafungin Sodium 100 mg/Sodium Chloride 100 ml @ 100 mls/hr DAILY IV 08/24/24 10:00 08/30/24 07:53 100 MLS/HR Hydromorphone HCl 1.5 mg Q3HPRN PRN IV 08/24/24 10:30 08/30/24 13:46 1.5 MG Rocuronium [place] 50 mg Q3HR PRN IV 08/24/24 10:30 08/25/24 06:08 50 MG Rocuronium [place] 1000 mg/ Dextrose 250 ml @ 10.08 mls/ hr Q24H IV 08/25/24 07:30 08/29/24 10:25 7.92 MLS/HR Hydralazine HCl 10 mg Q6HP PRN IV 08/25/24 17:30 08/30/24 18:52 10 MG Propofol 100 ml @ 2.694 mls/ hr Q24H IV 08/26/24 11:00 08/30/24 12:32 8.082 MLS/HR Labetalol HCl 10 mg Q2HPRN PRN IV 08/26/24 17:00 08/30/24 17:49 10 MG Dextrose/Sodium Chloride 1,000 ml @ 50 mls/hr Q20H IV 08/27/24 09:15 08/30/24 15:24 50 MLS/HR Diagnostic Test (Pha) 1 strip Q6HR 08/28/24 12:00 08/30/24 15:07 1 STRIP Insulin Human Regular Q6HR SC 08/28/24 12:00 08/30/24 16:50 3 UNITS Dextrose 50 ml UD PRN IV 08/28/24 09:15 Doxycycline Hyclate 250 ml @ 125 mls/hr Q12H IV 08/28/24 11:00 08/30/24 09:33 125 MLS/HR Sodium Chloride 90 meq/Calcium Gluconate 2.3 meq/ Magnesium Sulfate 26 meq/ Multivitamins 10 ml/Chromium/ Copper/Manganese/ Zinc 1 ml/Amino Acids/Dextrose 1,094.9462 ml @ 45 mls/hr [id number] IV 08/29/24 22:00 08/30/24 21:59 08/29/24 21:31 45 MLS/HR Artificial Tears 1 drop Q2HP PRN EACHEYE 08/29/24 12:45 08/30/24 05:29 1 DROP Bumetanide 1 mg BIDD IV 08/29/24 18:00 08/30/24 16:46 1 MG Nicardipine HCl 250 ml @ 50 mls/hr Q5H IV 08/30/24 08:15 Sodium Chloride 40 meq/Sodium Phosphate 40 meq/ Potassium Chloride 20 meq/ Potassium Phosphate 22 meq/ Magnesium Sulfate 30 meq/ Multivitamins 10 ml/Chromium/ Copper/Manganese/ Zinc 1 ml/Amino Acids/Dextrose 1,153.5 ml @ 48 mls/hr Q24H2M IV 08/30/24 22:00 08/31/24 21:59 objective Gen.: Patient lying in bed in medical ICU. Sedated, intubated on mechanical ventilator. Head: Normocephalic, atraumatic. Eyes: PERRLA. Ears: Normal external anatomy. Throat: Endotracheal tube and orogastric tube in place. Neck: Supple, trachea midline. Chest: Transmitted breath sounds bilaterally. Decreased air entry bilaterally. No wheezing. Bibasilar crackles. Cardiovascular: Positive S1, positive S2. Regular rate and rhythm. Abdomen: Positive bowel sounds in all 4 quadrants. Soft, nontender, nondistended. : Gutierrez in place. Normal external genitalia. Rectal: Deferred. Skin: Warm, dry. Intact. Extremities: 2+ radial pulses bilaterally. No lower extremity edema. Neuro: Sedated. laboratory and microbiology Laboratory Tests 08/30/24 03:15 08/29/24 03:17 Test 08/30/24 03:15 Range/Units Serum Glucose 161 H 74-106 mg/dL Assessment/Plan Impression: Acute hypoxic respiratory failure On mechanical ventilator Hypertriglyceridemia induced acute pancreatitis Hypocalcemia Hypophosphatemia Peritonitis Acute abdomen Ascites Hyponatremia due to hypotonic IV fluid Vitamin-D deficiency Hypomagnesemia Hyperparathyroidism immune [place] diffuse plasmapheresis Lactic acidosis, improving Events: Remains on vent support On assist control mode with respiratory rate of 22, tidal volume 450, PEEP of 5, FiO2 of 35%. On Rocuronium drip for paralytic. Sedated on Fentanyl, Propofol, Versed. On Precedex drip Continue antibiotics Hydralazine 10 mg q.6 hours PRN SBP >160 mmHg TPN for nutritional support IV fluids with D5-NS. Surgery recommendations appreciated. Wound care Monitor hemoglobin Diurese w/ Bumex as tolerated Monitor renal function Labs and imaging reviewed. Rest of plan as noted below. Plan: s/p intubation on mechanical ventilator On assist control mode with respiratory rate of 22, tidal volume 450, PEEP of 5, FiO2 of 35%. Titrate FIO2 to keep O2 saturation above 92%. VAP bundle Daily ABG and CXR while intubated. Sedate for ventilatory synchrony. Start pressors for hemodynamic support if necessary. Keep MAP above 65 mmHg/SBP above 90 mmHg. Continue broad spectrum antibiotics. F/u cultures. Monitor renal function due to Acute kidney injury. Monitor electrolytes. Supplement as necessary. Received calcium gluconate Potassium, calcium and magnesium were supplemented. Continue IV fluids Accu-cheks, on insulin drip. Abdomen was severely distended. Limited ultrasound of the abdomen revealed no pocket amenable for paracentesis. Recommended for RN to check bladder pressure every 6 hours. Currently it was 16 mmHg. Surgery recommendations appreciated - we will consider emergent surgery if abdominal pressures exceeding 25 mmHg. Patient s/p surgical procedure to decompress abdomen on 08/26. GI/DVT prophylaxis. Condition: Critical Prognosis: Poor given multiple comorbidities. Rest of plan per hospitalist and other consultants. A total of 35 minutes of critical care time was spent reviewing the patient record, examining the patient, making a diagnostic and therapeutic plan, discussing this plan with the medical personnel, following up on diagnostic studies and following the patient for clinical stability excluding any and all procedures. At least 50% of this time was spent in direct, [id number] contact. Thank you Dr. Bedolla for allowing me to participate in this patient's care. Further recommendations will depend on patient's clinical course. Please do not hesitate to contact me if you have any questions or concerns. This medical document was created using an electronic medical record system with [employer] dictation system. Although this document has been carefully reviewed, there may still be some phonetic and typographical errors. These areas are purely typographical due to imperfections of the software programs, and do not reflect any compromise in the patient's medical care. Dietary Evaluation Review Comments: 1) Increase TPN to meet at least 75% of estimated needs 2) Advance pt diet when medically feasible to a Low Fat diet 3) Continue current plan of care Expected Outcomes/Goals: 1) Pt diet to advance 2) Pt labs to improve 3) F/U in 2-3 days Plan discussed with: Other (ANDRES Vega) Critical Care Time(min): 35 JUDE REN MD Aug 30, 2024 20:08
[2024-08-30] MEDS: TPN PER PHARMACY IV NR (21:13)
[2024-08-31] VITALS (103 sets, daily range): BP systolic 89–214; BP diastolic 36–122; PULSE 80–129; RESP 16–39; TEMP 97.9–100.4; O2SAT 94–100
[2024-08-31 04:13] LABS: Red Cell Distribution Width 14.8 % (11.8-14.3)
[2024-08-31 04:15] LABS: Hematocrit 23.3 % (36.0-46.0); Mean Corpuscular Hemoglobin 29.8 pg (28.0-32.0); Mean Corpuscular Hgb Conc. 34.2 g/dL (32.0-36.0); Mean Corpuscular Volume 86.9 fL (80.0-100.0); Platelet Count (auto) 184 10^3/uL (140-450); Red Blood Cells 2.68 10^6/uL (4.0-5.20); White Blood Cell 10.9 10^3/uL (4.4-10.8)
[2024-08-31 04:20] LABS: Basophils % (manual) 0 (0.0-2.0); Blast Cells 0; Metamyelocytes % 0; Myelocytes % 0; Promyelocytes % 0; Reactive Lymphocytes 0
[2024-08-31 04:33] LABS: Alanine Aminotransferase 28 U/L (7-40); Alkaline Phosphatase 85 U/L (46-116); Anion Gap 8 (5-15); BUN/Creatinine Ratio 27.6 (10.0-20.0); Blood Urea Nitrogen 24 mg/dL (9-23); Calcium 8.4 mg/dL (8.7-10.4); Carbon Dioxide 27 mmol/L (20-31); Chloride 103 mmol/L (98-107); Magnesium 1.9 mg/dL (1.6-2.6); Potassium 3.9 mmol/L (3.5-5.1); Sodium 138 mmol/L (136-145)
[2024-08-31 04:34] LABS: Albumin 2.8 g/dL (3.2-4.8); Aspartate Aminotransferase 29 U/L (13-40); Bilirubin, Total 0.5 mg/dL (0.2-1.0); Phosphorus 5.1 mg/dL (2.4-5.1); Total Protein 5.2 g/dL (5.7-8.2)
[2024-08-31 04:44] LABS: Glucose 466 mg/dL (74-106)
[2024-08-31 05:23] LABS: Alanine Aminotransferase 26 U/L (7-40); Albumin 2.6 g/dL (3.2-4.8); Alkaline Phosphatase 79 U/L (46-116); Anion Gap 5 (5-15); Aspartate Aminotransferase 28 U/L (13-40); BUN/Creatinine Ratio 34.7 (10.0-20.0); Bilirubin, Total 0.5 mg/dL (0.2-1.0); Blood Urea Nitrogen 26 mg/dL (9-23); Calcium 8.6 mg/dL (8.7-10.4); Carbon Dioxide 30 mmol/L (20-31); Chloride 102 mmol/L (98-107); Glucose 148 mg/dL (74-106); Potassium 4.1 mmol/L (3.5-5.1); Sodium 137 mmol/L (136-145); Total Protein 4.9 g/dL (5.7-8.2)
[2024-08-31 05:28] LABS: Band Neutrophils % (manual) 1; Eosinophils % (manual) 1 (0-7); Lymphocytes % (manual) 9 (10.0-50.0); Monocytes % (manual) 6 (0-12)
[2024-08-31 05:29] LABS: Platelet Estimate Adequate
--- NOTE | 2024-08-31 06:02 | DVH ---
CHEST RADIOGRAPH Indication: INTUBATED Technique: Single frontal view of the chest was obtained Comparison: XY CHEST XRAY 1 VIEW on DOS: 08/30/24, XY CHEST PORTABLE on DOS: 08/29/24, XY CHEST NASRA BLE on DOS: 08/27/24 IMPRESSION: Endotracheal tube approximately 4.3 cm from the peg. Enteric tube tip likely within the stomach. I J catheter tip at the cavoatrial junction. Right PICC line tip is difficult to visualize. Postsurgic al changes of the abdomen. Small bilateral pleural effusions. Mild pulmonary vascular congestion micah ears improved.
--- NOTE | 2024-08-31 08:13 | DVHPN2 ---
Progress Note Date Seen: Aug 31, 2024 Has the PT tested + for MRSA If YES, has PT been informed?: No Medical Necessity Reason Pt with a Central, PICC or Fol: Yes The following are medically ne: Central Line, Gutierrez Catheter Reason for gutierrez catheter: Strict I&O Objective vital signs Vital Sign Date Time Temp Pulse Resp B/P (MAP) Pulse Ox O2 Delivery O2 Flow Rate FiO2 08/31/24 08:09 124/67 08/31/24 06:00 22 99 Mechanical Ventilator+ 30 30 08/31/24 06:00 99 08/31/24 03:45 97.9 97.9 Total Intake and Output 08/30/24 08/30/24 08/31/24 15:00 23:00 07:00 Intake Total 1952.573 ml 1032.591 ml 806.245 ml Output Total 3940 ml 1910 ml Balance 1952.573 ml -2907.409 ml -1103.755 ml medications Current Medications Medications Dose Ordered Sig/Snow Route Start Time Stop Time Status Last Admin Dose Admin Sodium Chloride 10 ml Q8HR IV 08/14/24 22:00 08/31/24 06:03 10 ML Pantoprazole Sodium 40 mg DAILY IV 08/15/24 10:00 08/30/24 07:53 40 MG Ergocalciferol 50,000 unit Q7D PO 08/15/24 10:00 08/15/24 08:53 50,000 UNIT Midazolam HCl 50 ml @ 1 mls/hr Q24H IV 08/16/24 11:30 08/31/24 06:24 15 MLS/HR Dexmedetomidine HCl 400 mcg/ Dextrose 100 ml @ 3.695 mls/ hr Q24H IV 08/17/24 02:45 08/31/24 03:11 12.933 MLS/HR Acetaminophen 650 mg Q8HPRN PRN [place] 08/17/24 04:15 08/22/24 14:10 650 MG Calcitriol 1 mcg EOD IV 08/17/24 10:00 08/29/24 10:25 1 MCG Norepinephrine Bitartrate 250 ml @ 3.75 mls/hr Q24H IV 08/17/24 09:30 08/19/24 11:29 7.5 MLS/HR Amino Acids 0 ml @ 0 mls/hr PER PHARMACY IV 08/19/24 14:45 Sodium Chloride 10 ml QSHIFT@10,22 IV 08/19/24 22:00 08/30/24 22:59 10 ML Insulin Human (Reg)/Sodium Chloride 100 ml 1945 IV 08/21/24 19:45 UNV Fentanyl Citrate 250 ml @ 2.5 mls/hr Q24H IV 08/22/24 12:15 08/31/24 08:09 50 MLS/HR Acetaminophen 1,000 mg Q6HPRN PRN IV 08/22/24 23:15 08/29/24 09:03 1,000 MG Meropenem 50 ml @ 17 mls/hr Q8H IV 08/23/24 13:00 08/31/24 05:00 17 MLS/HR Micafungin Sodium 100 mg/Sodium Chloride 100 ml @ 100 mls/hr DAILY IV 08/24/24 10:00 08/30/24 07:53 100 MLS/HR Hydromorphone HCl 1.5 mg Q3HPRN PRN IV 08/24/24 10:30 08/30/24 13:46 1.5 MG Rocuronium [place] 50 mg Q3HR PRN IV 08/24/24 10:30 08/25/24 06:08 50 MG Rocuronium [place] 1000 mg/ Dextrose 250 ml @ 10.08 mls/ hr Q24H IV 08/25/24 07:30 08/31/24 03:11 8.82 MLS/HR Hydralazine HCl 10 mg Q6HP PRN IV 08/25/24 17:30 08/30/24 18:52 10 MG Propofol 100 ml @ 2.694 mls/ hr Q24H IV 08/26/24 11:00 08/31/24 06:10 8.082 MLS/HR Labetalol HCl 10 mg Q2HPRN PRN IV 08/26/24 17:00 08/30/24 17:49 10 MG Dextrose/Sodium Chloride 1,000 ml @ 50 mls/hr Q20H IV 08/27/24 09:15 08/30/24 15:24 50 MLS/HR Diagnostic Test (Pha) 1 strip Q6HR 08/28/24 12:00 08/31/24 06:03 1 STRIP Insulin Human Regular Q6HR SC 08/28/24 12:00 08/31/24 06:08 2 UNITS Dextrose 50 ml UD PRN IV 08/28/24 09:15 Doxycycline Hyclate 250 ml @ 125 mls/hr Q12H IV 08/28/24 11:00 08/30/24 23:52 125 MLS/HR Artificial Tears 1 drop Q2HP PRN EACHEYE 08/29/24 12:45 08/30/24 05:29 1 DROP Bumetanide 1 mg BIDD IV 08/29/24 18:00 08/31/24 06:11 1 MG Nicardipine HCl 250 ml @ 50 mls/hr Q5H IV 08/30/24 08:15 Sodium Chloride 40 meq/Sodium Phosphate 40 meq/ Potassium Chloride 20 meq/ Potassium Phosphate 22 meq/ Magnesium Sulfate 30 meq/ Multivitamins 10 ml/Chromium/ Copper/Manganese/ Zinc 1 ml/Amino Acids/Dextrose 1,153.5 ml @ 48 mls/hr Q24H2M IV 08/30/24 22:00 08/31/24 21:59 08/30/24 21:13 48 MLS/HR laboratory and microbiology Laboratory Tests 08/31/24 04:50 08/31/24 03:30 Test 08/31/24 04:50 Range/Units Serum Glucose 148 H 74-106 mg/dL Problem List/Assessment/Plan Problem List/Assessment/Plan 08/19/24 ABDOMINAL PRESXURE IMPROVED, DRESSING DRY, SEROUS DRAINAGE, WILL TAKE TO O.R. MONDAY TO LAVAGE AND RE DRESS, POSSIBLY PLACE FASCIAL SUTURES 08/22/24 ABDOMEN LESS TENSE, DRESSING APPLIED, WILL CONSIDER CLOSURE OF ABDOMEN SOON. 08/23/24 abdomen still quite tense, leukocytosis, fever, urine output adequate, needs to have abdominal pressure determined q 6 hours(informed nurse), possibly return to OR on Monday to close the abdomen if pressures normal. 08/25/24 ABDOMINAL PRESSURE 7, LEUKOCYTOSIS AND FEVER PERSIST, WILL ATTEMPT ABDOMINAL CLOSURE TOMORROW 08/27/24 FEBRILE, ELEVATED WBC, ABDOMEN NONDISTENDED, GOOD URINE OUTPUT, DRESSING DRY 08/28/24 PATIENT'S MOTHER AT BEDSIDE, QUESTIONS ANSWERED, ABDOMEN LESS TENSE, PRESSURE 20, WOUND CLEAN AND WELL APPROXIMATED, KEEP ON ROCURONIUM DRIP TILL ABDOMINAL PRESSURES LESS THAN 15, GOOD URINE OUTPUT 08/29/24 wound clean and well approximated, drainage serous, decreasing volume, labs reviewed, no changes indicated 08/30/24 slow but noticeable improvement, abdomen less tense, wound clean and well approximated, good urine output, no bowel activity yet, continue as is 10/31/23 afebrile, abdomen softer, abdominal pressure reported as 7, wound clean, well approximated, drainage serous, ok to wean off rocuronium and begin weaning off ventilator Plan discussed with: Other Dietary Evaluation Review Comments: 1) Increase TPN to meet at least 75% of estimated needs 2) Advance pt diet when medically feasible to a Low Fat diet 3) Continue current plan of care Expected Outcomes/Goals: 1) Pt diet to advance 2) Pt labs to improve 3) F/U in 2-3 days MARILYN OJEDA MD Aug 31, 2024 08:13
[2024-08-31 08:24] LABS: Base Excess 4.9 mmol/L (-2.0-3.0)
[2024-08-31 18:12] LABS: Hematocrit 21.4 % (36.0-46.0); Hemoglobin 7.3 g/dL (12.2-16.2)
[2024-08-31] MEDS ORDERED: diazePAM 5 MG TAB NG PRN (18:30)
--- NOTE | 2024-08-31 21:05 | DVHPN2 ---
Progress Note - Dictate Date Seen: Aug 31, 2024 Has the PT tested + for MRSA If YES, has PT been informed?: No Medical Necessity Reason Pt with a Central, PICC or Fol: Yes The following are medically ne: Central Line, Gutierrez Catheter Reason for gutierrez catheter: Strict I&O Subjective Patient seen and examined at bedside. Sedated, intubated on mechanical ventilator. Overnight events reviewed. vital signs Vital Sign Date Time Temp Pulse Resp B/P (MAP) Pulse Ox O2 Delivery O2 Flow Rate FiO2 08/31/24 20:44 128 214/122 08/31/24 20:11 27 98 30 08/31/24 18:00 Mechanical Ventilator+ 08/31/24 16:00 98.2 98.2 Total Intake and Output 08/30/24 08/30/24 08/31/24 15:00 23:00 07:00 Intake Total 1952.573 ml 1032.591 ml 904.245 ml Output Total 3940 ml 1910 ml Balance 1952.573 ml -2907.409 ml -1005.755 ml medications Current Medications Medications Dose Ordered Sig/Snow Route Start Time Stop Time Status Last Admin Dose Admin Sodium Chloride 10 ml Q8HR IV 08/14/24 22:00 08/31/24 14:25 10 ML Pantoprazole Sodium 40 mg DAILY IV 08/15/24 10:00 08/31/24 10:45 40 MG Ergocalciferol 50,000 unit Q7D PO 08/15/24 10:00 08/15/24 08:53 50,000 UNIT Midazolam HCl 50 ml @ 1 mls/hr Q24H IV 08/16/24 11:30 08/31/24 17:54 15 MLS/HR Dexmedetomidine HCl 400 mcg/ Dextrose 100 ml @ 3.695 mls/ hr Q24H IV 08/17/24 02:45 08/31/24 18:41 12.933 MLS/HR Acetaminophen 650 mg Q8HPRN PRN [place] 08/17/24 04:15 08/22/24 14:10 650 MG Calcitriol 1 mcg EOD IV 08/17/24 10:00 08/31/24 10:00 1 MCG Norepinephrine Bitartrate 250 ml @ 3.75 mls/hr Q24H IV 08/17/24 09:30 08/19/24 11:29 7.5 MLS/HR Amino Acids 0 ml @ 0 mls/hr PER PHARMACY IV 08/19/24 14:45 Sodium Chloride 10 ml QSHIFT@10,22 IV 08/19/24 22:00 08/31/24 10:46 10 ML Insulin Human (Reg)/Sodium Chloride 100 ml 1945 IV 08/21/24 19:45 UNV Fentanyl Citrate 250 ml @ 2.5 mls/hr Q24H IV 08/22/24 12:15 08/31/24 17:09 50 MLS/HR Acetaminophen 1,000 mg Q6HPRN PRN IV 08/22/24 23:15 08/29/24 09:03 1,000 MG Meropenem 50 ml @ 17 mls/hr Q8H IV 08/23/24 13:00 08/31/24 20:49 17 MLS/HR Micafungin Sodium 100 mg/Sodium Chloride 100 ml @ 100 mls/hr DAILY IV 08/24/24 10:00 08/31/24 10:46 100 MLS/HR Hydromorphone HCl 1.5 mg Q3HPRN PRN IV 08/24/24 10:30 08/30/24 13:46 1.5 MG Rocuronium [place] 50 mg Q3HR PRN IV 08/24/24 10:30 08/25/24 06:08 50 MG Rocuronium [place] 1000 mg/ Dextrose 250 ml @ 10.08 mls/ hr Q24H IV 08/25/24 07:30 08/31/24 03:11 8.82 MLS/HR Hydralazine HCl 10 mg Q6HP PRN IV 08/25/24 17:30 08/31/24 10:12 10 MG Propofol 100 ml @ 2.694 mls/ hr Q24H IV 08/26/24 11:00 08/31/24 16:18 10.776 MLS/HR Labetalol HCl 10 mg Q2HPRN PRN IV 08/26/24 17:00 08/31/24 20:44 10 MG Dextrose/Sodium Chloride 1,000 ml @ 50 mls/hr Q20H IV 08/27/24 09:15 08/31/24 20:41 50 MLS/HR Diagnostic Test (Pha) 1 strip Q6HR 08/28/24 12:00 08/31/24 17:33 1 STRIP Insulin Human Regular Q6HR SC 08/28/24 12:00 08/31/24 17:36 2 UNITS Dextrose 50 ml UD PRN IV 08/28/24 09:15 Doxycycline Hyclate 250 ml @ 125 mls/hr Q12H IV 08/28/24 11:00 08/31/24 12:01 125 MLS/HR Artificial Tears 1 drop Q2HP PRN EACHEYE 08/29/24 12:45 08/30/24 05:29 1 DROP Bumetanide 1 mg BIDD IV 08/29/24 18:00 08/31/24 17:22 1 MG Nicardipine HCl 250 ml @ 50 mls/hr Q5H IV 08/30/24 08:15 Sodium Chloride 40 meq/Sodium Phosphate 40 meq/ Potassium Chloride 20 meq/ Potassium Phosphate 22 meq/ Magnesium Sulfate 30 meq/ Multivitamins 10 ml/Chromium/ Copper/Manganese/ Zinc 1 ml/Amino Acids/Dextrose 1,153.5 ml @ 48 mls/hr Q24H2M IV 08/30/24 22:00 08/31/24 21:59 08/30/24 21:13 48 MLS/HR Sodium Chloride 40 meq/Potassium Chloride 40 meq/ Calcium Gluconate 2.3 meq/Magnesium Sulfate 30 meq/ Multivitamins 10 ml/Chromium/ Copper/Manganese/ Zinc 1 ml/Amino Acids/Dextrose 1,153.4462 ml @ 48 mls/hr Q24H2M IV 08/31/24 22:00 09/01/24 21:59 Diazepam 10 mg Q6HR PO 09/01/24 00:00 objective Gen.: Patient lying in bed in medical ICU. Sedated, intubated on mechanical ventilator. Head: Normocephalic, atraumatic. Eyes: PERRLA. Ears: Normal external anatomy. Throat: Endotracheal tube and orogastric tube in place. Neck: Supple, trachea midline. Chest: Transmitted breath sounds bilaterally. Decreased air entry bilaterally. No wheezing. Bibasilar crackles. Cardiovascular: Positive S1, positive S2. Regular rate and rhythm. Abdomen: Positive bowel sounds in all 4 quadrants. Soft, nontender, nondistended. : Gutierrez in place. Normal external genitalia. Rectal: Deferred. Skin: Warm, dry. Intact. Extremities: 2+ radial pulses bilaterally. No lower extremity edema. Neuro: Sedated. laboratory and microbiology Laboratory Tests 08/31/24 17:48 08/31/24 04:50 08/31/24 03:30 Test 08/31/24 04:50 Range/Units Serum Glucose 148 H 74-106 mg/dL Assessment/Plan Impression: Acute hypoxic respiratory failure On mechanical ventilator Hypertriglyceridemia induced acute pancreatitis Hypocalcemia Hypophosphatemia Peritonitis Acute abdomen Ascites Hyponatremia due to hypotonic IV fluid Vitamin-D deficiency Hypomagnesemia Hyperparathyroidism immune Anglican diffuse plasmapheresis Lactic acidosis, improving Events: Remains on vent support On assist control mode with respiratory rate of 22, tidal volume 450, PEEP of 5, FiO2 of 30%. ABG reviewed, c/w alkalemia. On Rocuronium drip for paralytic. Plan to taper. Sedated on Fentanyl, Propofol, Versed. On Precedex drip Bladder pressure 7,13. Surgery recommendations appreciated. Continue antibiotics Hydralazine 10 mg q.6 hours PRN SBP >160 mmHg TPN for nutritional support IV fluids with D5-NS. Wound care Monitor hemoglobin Diurese w/ Bumex as tolerated Monitor renal function Labs and imaging reviewed. Rest of plan as noted below. Plan: s/p intubation on mechanical ventilator On assist control mode with respiratory rate of 22, tidal volume 450, PEEP of 5, FiO2 of 30%. Titrate FIO2 to keep O2 saturation above 92%. VAP bundle Daily ABG and CXR while intubated. Sedate for ventilatory synchrony. Start pressors for hemodynamic support if necessary. Keep MAP above 65 mmHg/SBP above 90 mmHg. Continue broad spectrum antibiotics. F/u cultures. Monitor renal function due to Acute kidney injury. Monitor electrolytes. Supplement as necessary. Received calcium gluconate Potassium, calcium and magnesium were supplemented. Continue IV fluids Accu-cheks, on insulin drip. Abdomen was severely distended. Limited ultrasound of the abdomen revealed no pocket amenable for paracentesis. Recommended for RN to check bladder pressure every 6 hours. Currently it was 16 mmHg. Surgery recommendations appreciated - we will consider emergent surgery if abdominal pressures exceeding 25 mmHg. Patient s/p surgical procedure to decompress abdomen on 08/26. GI/DVT prophylaxis. Condition: Critical Prognosis: Poor given multiple comorbidities. Rest of plan per hospitalist and other consultants. A total of 35 minutes of critical care time was spent reviewing the patient record, examining the patient, making a diagnostic and therapeutic plan, discussing this plan with the medical personnel, following up on diagnostic studies and following the patient for clinical stability excluding any and all procedures. At least 50% of this time was spent in direct, [id number] contact. Thank you Dr. Bedolla for allowing me to participate in this patient's care. Further recommendations will depend on patient's clinical course. Please do not hesitate to contact me if you have any questions or concerns. This medical document was created using an electronic medical record system with [employer] dictation system. Although this document has been carefully reviewed, there may still be some phonetic and typographical errors. These areas are purely typographical due to imperfections of the software programs, and do not reflect any compromise in the patient's medical care. Dietary Evaluation Review Comments: 1) Increase TPN to meet at least 75% of estimated needs 2) Advance pt diet when medically feasible to a Low Fat diet 3) Continue current plan of care Expected Outcomes/Goals: 1) Pt diet to advance 2) Pt labs to improve 3) F/U in 2-3 days Plan discussed with: Other (ANDRES Lin) Critical Care Time(min): 35 JUDE REN MD Aug 31, 2024 21:05
[2024-08-31] MEDS: TPN PER PHARMACY IV NR (21:08)
[2024-08-31] MEDS: diazePAM 5 MG TAB PO SCH (23:17)
[2024-09-01] VITALS (105 sets, daily range): BP systolic 84–212; BP diastolic 30–117; PULSE 74–155; RESP 22–36; TEMP 98.4–101.6; O2SAT 90–100
[2024-09-01 03:46] LABS: Basophils # (auto) 0.1 10 ^3/uL (0-0.2); Eosinophils # (auto) 0.2 10 ^3/uL (0-0.8); Eosinophils % (auto) 1.7 % (0.0-7.0); Hemoglobin 8.6 g/dL (12.2-16.2); Lymphocytes # (auto) 1.1 10 ^3/uL (0.4-5.4); Lymphocytes % (auto) 9.5 % (10.0-50.0); Mean Corpuscular Hemoglobin 29.9 pg (28.0-32.0); Mean Corpuscular Hgb Conc. 34.4 g/dL (32.0-36.0); Mean Corpuscular Volume 86.7 fL (80.0-100.0); Monocytes # (auto) 0.8 10 ^3/uL (0-1.3); Monocytes % (auto) 6.6 % (0.0-12.0); Neutrophils # (auto) 9.5 10 ^3/uL (1.6-8.6); Neutrophils % (auto) 81.2 % (37.0-80.0); Platelet Count (auto) 230 10^3/uL (140-450); Red Blood Cells 2.88 10^6/uL (4.0-5.20); Red Cell Distribution Width 14.8 % (11.8-14.3); White Blood Cell 11.7 10^3/uL (4.4-10.8)
[2024-09-01 03:58] LABS: INR 1.19 (0.9-1.15); Partial Thromboplastin Time 32.5 SEC (24.5-34.5); Prothrombin Time 12.5 sec (9.3-11.8)
[2024-09-01 04:02] LABS: Alanine Aminotransferase 34 U/L (7-40); Albumin 3.3 g/dL (3.2-4.8); Alkaline Phosphatase 108 U/L (46-116); Anion Gap 9 (5-15); Aspartate Aminotransferase 34 U/L (13-40); BUN/Creatinine Ratio 32.5 (10.0-20.0); Blood Urea Nitrogen 25 mg/dL (9-23); Calcium 9.2 mg/dL (8.7-10.4); Carbon Dioxide 27 mmol/L (20-31); Chloride 102 mmol/L (98-107); Glucose 155 mg/dL (74-106); Magnesium 2.1 mg/dL (1.6-2.6); Potassium 4.2 mmol/L (3.5-5.1); Sodium 138 mmol/L (136-145)
[2024-09-01 04:03] LABS: Bilirubin, Total 0.6 mg/dL (0.2-1.0); Phosphorus 5.1 mg/dL (2.4-5.1); Total Protein 6.1 g/dL (5.7-8.2)
--- NOTE | 2024-09-01 05:38 | DVH ---
CHEST RADIOGRAPH Indication: acute resp failure Technique: Single frontal view of the chest was obtained COMPARISON: XY CHEST PORTABLE on DOS: 08/31/24, XY CHEST XRAY 1 VIEW on DOS: 08/30/24, XY CHEST NASRA BLE on DOS: 08/29/24 FINDINGS: Lines and Tubes: Endotracheal tube, enteric catheter, right central venous catheter and right PICC in satisfactory position. Lungs: Low lung volumes. Mild congestion. Pleura: No effusion. No pneumothorax. Cardiomediastinal contours: Cardiomegaly. Bones: Unremarkable IMPRESSION: Lines and tubes in satisfactory position. No significant interval change.
[2024-09-01 07:05] LABS: Base Excess -0.7 mmol/L (-2.0-3.0)
--- NOTE | 2024-09-01 09:56 | DVHPN2 ---
Progress Note Date Seen: Sep 01, 2024 Has the PT tested + for MRSA If YES, has PT been informed?: No Medical Necessity Reason Pt with a Central, PICC or Fol: Yes The following are medically ne: Central Line, Gutierrez Catheter Reason for gutierrez catheter: Strict I&O Objective vital signs Vital Sign Date Time Temp Pulse Resp B/P (MAP) Pulse Ox O2 Delivery O2 Flow Rate FiO2 09/01/24 09:08 90 22 124/66 (85) 99 30 09/01/24 08:00 Mechanical Ventilator+ 09/01/24 06:15 98.9 98.9 Total Intake and Output 08/31/24 08/31/24 09/01/24 15:00 23:00 07:00 Intake Total 1813.560 ml 1394.5236 ml 2342.658 ml Output Total 2430 ml 3240 ml Balance 1813.560 ml -1035.4764 ml -897.342 ml medications Current Medications Medications Dose Ordered Sig/Snow Route Start Time Stop Time Status Last Admin Dose Admin Sodium Chloride 10 ml Q8HR IV 08/14/24 22:00 09/01/24 06:03 10 ML Pantoprazole Sodium 40 mg DAILY IV 08/15/24 10:00 08/31/24 10:45 40 MG Ergocalciferol 50,000 unit Q7D PO 08/15/24 10:00 08/15/24 08:53 50,000 UNIT Midazolam HCl 50 ml @ 1 mls/hr Q24H IV 08/16/24 11:30 09/01/24 07:25 15 MLS/HR Dexmedetomidine HCl 400 mcg/ Dextrose 100 ml @ 3.695 mls/ hr Q24H IV 08/17/24 02:45 09/01/24 08:03 12.933 MLS/HR Acetaminophen 650 mg Q8HPRN PRN [place] 08/17/24 04:15 08/31/24 22:24 650 MG Calcitriol 1 mcg EOD IV 08/17/24 10:00 08/31/24 10:00 1 MCG Norepinephrine Bitartrate 250 ml @ 3.75 mls/hr Q24H IV 08/17/24 09:30 08/19/24 11:29 7.5 MLS/HR Amino Acids 0 ml @ 0 mls/hr PER PHARMACY IV 08/19/24 14:45 Sodium Chloride 10 ml QSHIFT@10,22 IV 08/19/24 22:00 09/01/24 00:44 10 ML Insulin Human (Reg)/Sodium Chloride 100 ml 1945 IV 08/21/24 19:45 UNV Fentanyl Citrate 250 ml @ 2.5 mls/hr Q24H IV 08/22/24 12:15 09/01/24 07:29 50 MLS/HR Acetaminophen 1,000 mg Q6HPRN PRN IV 08/22/24 23:15 08/29/24 09:03 1,000 MG Meropenem 50 ml @ 17 mls/hr Q8H IV 08/23/24 13:00 09/01/24 06:02 17 MLS/HR Micafungin Sodium 100 mg/Sodium Chloride 100 ml @ 100 mls/hr DAILY IV 08/24/24 10:00 08/31/24 10:46 100 MLS/HR Hydromorphone HCl 1.5 mg Q3HPRN PRN IV 08/24/24 10:30 09/01/24 03:04 1.5 MG Rocuronium [place] 50 mg Q3HR PRN IV 08/24/24 10:30 08/25/24 06:08 50 MG Rocuronium [place] 1000 mg/ Dextrose 250 ml @ 10.08 mls/ hr Q24H IV 08/25/24 07:30 08/31/24 03:11 8.82 MLS/HR Hydralazine HCl 10 mg Q6HP PRN IV 08/25/24 17:30 09/01/24 00:19 10 MG Propofol 100 ml @ 2.694 mls/ hr Q24H IV 08/26/24 11:00 09/01/24 04:27 26.94 MLS/HR Labetalol HCl 10 mg Q2HPRN PRN IV 08/26/24 17:00 08/31/24 20:44 10 MG Dextrose/Sodium Chloride 1,000 ml @ 50 mls/hr Q20H IV 08/27/24 09:15 08/31/24 20:41 50 MLS/HR Diagnostic Test (Pha) 1 strip Q6HR 08/28/24 12:00 09/01/24 06:03 1 STRIP Insulin Human Regular Q6HR SC 08/28/24 12:00 09/01/24 06:08 3 UNITS Dextrose 50 ml UD PRN IV 08/28/24 09:15 Doxycycline Hyclate 250 ml @ 125 mls/hr Q12H IV 08/28/24 11:00 09/01/24 00:51 125 MLS/HR Artificial Tears 1 drop Q2HP PRN EACHEYE 08/29/24 12:45 09/01/24 08:04 1 DROP Bumetanide 1 mg BIDD IV 08/29/24 18:00 09/01/24 06:03 1 MG Nicardipine HCl 250 ml @ 50 mls/hr Q5H IV 08/30/24 08:15 09/01/24 04:20 100 MLS/HR Sodium Chloride 40 meq/Potassium Chloride 40 meq/ Calcium Gluconate 2.3 meq/Magnesium Sulfate 30 meq/ Multivitamins 10 ml/Chromium/ Copper/Manganese/ Zinc 1 ml/Amino Acids/Dextrose 1,153.4462 ml @ 48 mls/hr Q24H2M IV 08/31/24 22:00 09/01/24 21:59 08/31/24 21:08 48 MLS/HR Diazepam 10 mg Q6HR PO 09/01/24 00:00 08/31/24 23:17 10 MG laboratory and microbiology Laboratory Tests 09/01/24 03:10 Test 09/01/24 03:10 Range/Units Serum Glucose 155 H 74-106 mg/dL Problem List/Assessment/Plan Problem List/Assessment/Plan 08/19/24 ABDOMINAL PRESXURE IMPROVED, DRESSING DRY, SEROUS DRAINAGE, WILL TAKE TO O.R. MONDAY TO LAVAGE AND RE DRESS, POSSIBLY PLACE FASCIAL SUTURES 08/22/24 ABDOMEN LESS TENSE, DRESSING APPLIED, WILL CONSIDER CLOSURE OF ABDOMEN SOON. 08/23/24 abdomen still quite tense, leukocytosis, fever, urine output adequate, needs to have abdominal pressure determined q 6 hours(informed nurse), possibly return to OR on Monday to close the abdomen if pressures normal. 08/25/24 ABDOMINAL PRESSURE 7, LEUKOCYTOSIS AND FEVER PERSIST, WILL ATTEMPT ABDOMINAL CLOSURE TOMORROW 08/27/24 FEBRILE, ELEVATED WBC, ABDOMEN NONDISTENDED, GOOD URINE OUTPUT, DRESSING DRY 08/28/24 PATIENT'S MOTHER AT BEDSIDE, QUESTIONS ANSWERED, ABDOMEN LESS TENSE, PRESSURE 20, WOUND CLEAN AND WELL APPROXIMATED, KEEP ON ROCURONIUM DRIP TILL ABDOMINAL PRESSURES LESS THAN 15, GOOD URINE OUTPUT 08/29/24 wound clean and well approximated, drainage serous, decreasing volume, labs reviewed, no changes indicated 08/30/24 slow but noticeable improvement, abdomen less tense, wound clean and well approximated, good urine output, no bowel activity yet, continue as is 10/31/23 afebrile, abdomen softer, abdominal pressure reported as 7, wound clean, well approximated, drainage serous, ok to wean off rocuronium and begin weaning off ventilator 09/01/24 ESSENTIALLYT UNCHANGED, WOUND CLEAN, DRAINAGE SEROUS, ABDOMINAL PRESSURE 7 TO 9, CONTINUE IS Plan discussed with: Other Dietary Evaluation Review Comments: 1) Increase TPN to meet at least 75% of estimated needs 2) Advance pt diet when medically feasible to a Low Fat diet 3) Continue current plan of care Expected Outcomes/Goals: 1) Pt diet to advance 2) Pt labs to improve 3) F/U in 2-3 days MARILYN OJEDA MD Sep 01, 2024 09:56
--- NOTE | 2024-09-01 12:45 | DVHPN2 ---
Subjective The patient is seen and examined at bedside. The patient is agitated and three sedation medication did not help. Reviewed: Care Plan, H&P, Labs, Medications Changes from previous H/P or p: No Changes General: Per HPI Eyes: No Pain, No Vision change, No Conjunctivae inflammation, No Eyelid inflammation, No Other, No Redness ENT: No Ear pain, No Ear discharge, No Nose pain, No Nose discharge, No Nose congestion, No Mouth pain, No Mouth swelling, No Throat pain, No Throat swelling, No Other Cardiovascular: No Chest Pain, No Palpitations, No Orthopnea, No Paroxysmal Noc. Dyspnea, No Edema, No Lt Headedness, No Other Respiratory: No Cough, No Dry, No Shortness of breath, No SOB with excertion, No Wheezing, No Hemoptysis, No Pleuritic Pain, No Sputum, No Other Gastrointestinal: Nausea, Vomiting, Abdominal Pain, Diarrhea Genitourinary: No Dysuria, No Frequency, No Incontinence, No Hematuria, No Retention, No Other Musculoskeletal: No other, No neck pain, No shoulder pain, No arm pain, No back pain, No hand pain, No leg pain, No foot pain Skin: No Rash, No Lesions, No Jaundice, No Bruising, No Other Objective Vitals Vital Signs Date Time Temp Pulse Resp B/P (MAP) Pulse Ox O2 Delivery O2 Flow Rate FiO2 09/01/24 12:10 174/93 09/01/24 11:33 155 09/01/24 11:10 28 91 30 09/01/24 08:00 Mechanical Ventilator+ 09/01/24 06:15 98.9 98.9 Intake/Output Intake and Output 09/01/24 07:00 Intake Total 5600.7416 ml Output Total 5670 ml Balance -69.2584 ml Intake Oral 50 ml IV Total 5450.7416 ml Intraperitoneal 100 ml Output Urine Total 5150 ml Gastric Drainage Total 310 ml Other 210 ml General Appearance: moderate distress, Other (Patient sedated and paralyzed) HEENT: Atraumatic, PERRLA Lungs: Clear to auscultation, Normal air movement, Other (Mechanical ventilation) Cardiovascular: Normal S1, Normal S2 Abdomen: Other (Hypoactive bowel sounds. Greater than serosanguineous drainage. SOLIS drain x 2. ) Genitourinary: No Apparent Abnormalities (Sparrow catheterization) Musculoskeletal: Other (Unable to assess) Skin: Dry, Intact Psych/Mental Status: Other (Unable to assess) Medications Current Medications Medications Dose Ordered Sig/Snow Route Start Time Stop Time Status Last Admin Dose Admin Sodium Chloride 10 ml Q8HR IV 08/14/24 22:00 09/01/24 06:03 10 ML Pantoprazole Sodium 40 mg DAILY IV 08/15/24 10:00 09/01/24 10:50 40 MG Ergocalciferol 50,000 unit Q7D PO 08/15/24 10:00 08/15/24 08:53 50,000 UNIT Midazolam HCl 50 ml @ 1 mls/hr Q24H IV 08/16/24 11:30 09/01/24 10:36 15 MLS/HR Dexmedetomidine HCl 400 mcg/ Dextrose 100 ml @ 3.695 mls/ hr Q24H IV 08/17/24 02:45 09/01/24 08:03 12.933 MLS/HR Acetaminophen 650 mg Q8HPRN PRN [place] 08/17/24 04:15 08/31/24 22:24 650 MG Calcitriol 1 mcg EOD IV 08/17/24 10:00 08/31/24 10:00 1 MCG Norepinephrine Bitartrate 250 ml @ 3.75 mls/hr Q24H IV 08/17/24 09:30 08/19/24 11:29 7.5 MLS/HR Amino Acids 0 ml @ 0 mls/hr PER PHARMACY IV 08/19/24 14:45 Sodium Chloride 10 ml QSHIFT@10,22 IV 08/19/24 22:00 09/01/24 10:50 10 ML Insulin Human (Reg)/Sodium Chloride 100 ml 1945 IV 08/21/24 19:45 UNV Fentanyl Citrate 250 ml @ 2.5 mls/hr Q24H IV 08/22/24 12:15 09/01/24 11:52 50 MLS/HR Acetaminophen 1,000 mg Q6HPRN PRN IV 08/22/24 23:15 09/01/24 11:22 1,000 MG Meropenem 50 ml @ 17 mls/hr Q8H IV 08/23/24 13:00 09/01/24 06:02 17 MLS/HR Micafungin Sodium 100 mg/Sodium Chloride 100 ml @ 100 mls/hr DAILY IV 08/24/24 10:00 09/01/24 10:50 100 MLS/HR Hydromorphone HCl 1.5 mg Q3HPRN PRN IV 08/24/24 10:30 09/01/24 03:04 1.5 MG Rocuronium [place] 50 mg Q3HR PRN IV 08/24/24 10:30 08/25/24 06:08 50 MG Rocuronium [place] 1000 mg/ Dextrose 250 ml @ 10.08 mls/ hr Q24H IV 08/25/24 07:30 09/01/24 10:39 6.678 MLS/HR Hydralazine HCl 10 mg Q6HP PRN IV 08/25/24 17:30 09/01/24 00:19 10 MG Propofol 100 ml @ 2.694 mls/ hr Q24H IV 08/26/24 11:00 09/01/24 10:35 8.082 MLS/HR Labetalol HCl 10 mg Q2HPRN PRN IV 08/26/24 17:00 08/31/24 20:44 10 MG Dextrose/Sodium Chloride 1,000 ml @ 50 mls/hr Q20H IV 08/27/24 09:15 08/31/24 20:41 50 MLS/HR Diagnostic Test (Pha) 1 strip Q6HR 08/28/24 12:00 09/01/24 06:03 1 STRIP Insulin Human Regular Q6HR SC 08/28/24 12:00 09/01/24 06:08 3 UNITS Dextrose 50 ml UD PRN IV 08/28/24 09:15 Doxycycline Hyclate 250 ml @ 125 mls/hr Q12H IV 08/28/24 11:00 09/01/24 00:51 125 MLS/HR Artificial Tears 1 drop Q2HP PRN EACHEYE 08/29/24 12:45 09/01/24 08:04 1 DROP Nicardipine HCl 250 ml @ 50 mls/hr Q5H IV 08/30/24 08:15 09/01/24 11:33 150 MLS/HR Sodium Chloride 40 meq/Potassium Chloride 40 meq/ Calcium Gluconate 2.3 meq/Magnesium Sulfate 30 meq/ Multivitamins 10 ml/Chromium/ Copper/Manganese/ Zinc 1 ml/Amino Acids/Dextrose 1,153.4462 ml @ 48 mls/hr Q24H2M IV 08/31/24 22:00 09/01/24 21:59 08/31/24 21:08 48 MLS/HR Diazepam 10 mg Q6HR PO 09/01/24 00:00 08/31/24 23:17 10 MG Bumetanide 1 mg BIDD IV 09/01/24 18:00 Sodium Chloride 40 meq/Potassium Chloride 35 meq/ Magnesium Sulfate 30 meq/ Multivitamins 10 ml/Chromium/ Copper/Manganese/ Zinc 1 ml/Amino Acids/Dextrose 1,146 ml @ 48 mls/hr [id number] IV 09/01/24 22:00 09/02/24 21:52 Laboratory Results Laboratory Tests 09/01/24 03:10 Chemistry Test 09/01/24 03:10 Albumin 3.3 g/dL (3.2-4.8) Calcium Level 9.2 mg/dL (8.7-10.4) Magnesium Level 2.1 mg/dL (1.6-2.6) Phosphorus Level 5.1 mg/dL (2.4-5.1) Total Protein 6.1 g/dL (5.7-8.2) Coagulation Test 09/01/24 03:10 Prothrombin Time 12.5 sec (9.3-11.8) H Prothrombin Time INR 1.19 (0.9-1.15) H Activated Partial Thromboplast Time 32.5 SEC (24.5-34.5) Lipid panel Test 09/01/24 03:10 Triglycerides Level 443 mg/dL (< 150) H LFT Test 09/01/24 03:10 Alanine Aminotransferase (ALT) 34 U/L (7-40) Alkaline Phosphatase 108 U/L (46-116) Aspartate Amino Transferase (AST) 34 U/L (13-40) Total Bilirubin 0.6 mg/dL (0.2-1.0) Urinalysis Test 08/14/24 12:07 08/16/24 12:55 Urine Color Colorless (Yellow) Urine Clarity Clear (Clear) Urine pH 5.5 (5.0-9.0) Urine Specific [place] 1.013 (1.001-1.035) Urine Protein Negative (Negative) Urine Ketones Negative (Negative) Urine Blood 1+ /uL (Negative) H Urine Nitrite Negative (Negative) Urine Bilirubin Negative (Negative) Urine Urobilinogen Normal mg/dL (Negative) Urine Leukocyte Esterase Negative /uL (Negative) Urine RBC 3 /hpf (0 - 4) Urine WBC <1 /hpf (0 - 5) Urine Squamous Epithelial Cells Few /hpf (<5) Urine Bacteria Few /hpf (None Seen) H Urine Glucose Normal mg/dL (Normal) Urine Creatinine 242.96 mg/dL (30.0-125.0) H Urine Protein/Creatinine Ratio 1.09 Urine Sodium 13 mmol/L (40-220) L Urine Total Protein 265.4 mg/dL (1-14) H Blood Gas Results Test 09/01/24 06:53 Arterial Blood pH 7.398 (7.350-7.450) FiO2 % 30.0 Microbiology Microbiology Date/Time Source Procedure Growth Status 08/24/24 08:40 Blood Blood Culture - Final NO GROWTH AFTER 5 DAYS OF INCUBATION. Complete 08/16/24 11:57 Sputum Gram Stain - Final Complete 08/16/24 11:57 Respiratory Culture - Final Beta Strep Non-A, Non-B Complete 08/16/24 01:00 Urine - Midstream Clean Catch Urine Culture - Final Complete 08/15/24 13:32 Nose MRSA Screen - Final Complete Labs and/or images reviewed: Labs reviewed by me Assessment/Plan Assessment/Plan -acute pancreatitis secondary to hypertriglyceridemia -abdominal compartment syndrome -acute hypoxic respiratory failure status post intubation -anemia -gap acidosis -ascites -pleural effusions -sepsis Plan: Continuing current management. Continuing with nicardipine drip. The patient's max out on Versed and fentanyl. I will check lipid profile and we will increase propofol if triglyceride allow. Continuing aggressive IV diuresis. Continuing TPN. Continuing with Dilaudid. Restart rocuronium since the patient unable to sedated with three sedation medication. Continuing with IV Dilaudid. Continuing with IV labetalol. Prognosis guarded. Plan discussed with: Other (RN) My Orders Orders - VIKTORIA SALDAÑA MD Procedure Category Date Status Time Chest Portable XY 09/01/24 Resulted 01:08 Date of Service: Aug 31, 2024 Billing Provider: VIKTORIA SALDAÑA MD Common Visit Codes: [id number] INP/OBS CARE(HIGH) VIKTORIA SALDAÑA MD Sep 01, 2024 12:45
[2024-09-01] MEDS: MIDAZOLAM DRIP 50 mg/50mL 50 ML IV SCH (16:54)
[2024-09-01] MEDS: BUMETANIDE 1mg/4ml VIAL (0.25mg/ml) IV SCH (17:26)
[2024-09-01] MEDS: niCARdipine 50 MG in SODIUM CHL 0.9% 230 ML IV SCH (17:38)
[2024-09-01] MEDS: TPN PER PHARMACY IV NR (21:03)
--- NOTE | 2024-09-01 21:03 | DVHPN2 ---
Progress Note - Dictate Date Seen: Sep 01, 2024 Has the PT tested + for MRSA If YES, has PT been informed?: No Medical Necessity Reason Pt with a Central, PICC or Fol: Yes The following are medically ne: Central Line, Gutierrez Catheter Reason for gutierrez catheter: Strict I&O Subjective Patient seen and examined at bedside. Sedated, intubated on mechanical ventilator. Overnight events reviewed. vital signs Vital Sign Date Time Temp Pulse Resp B/P (MAP) Pulse Ox O2 Delivery O2 Flow Rate FiO2 09/01/24 20:26 136 25 160/89 (112) 99 30 09/01/24 19:00 99.0 99.0 09/01/24 18:00 Mechanical Ventilator+ Total Intake and Output 08/31/24 08/31/24 09/01/24 15:00 23:00 07:00 Intake Total 1813.560 ml 1394.5236 ml 2392.658 ml Output Total 2430 ml 3240 ml Balance 1813.560 ml -1035.4764 ml -847.342 ml medications Current Medications Medications Dose Ordered Sig/Snow Route Start Time Stop Time Status Last Admin Dose Admin Sodium Chloride 10 ml Q8HR IV 08/14/24 22:00 09/01/24 15:26 10 ML Pantoprazole Sodium 40 mg DAILY IV 08/15/24 10:00 09/01/24 10:50 40 MG Ergocalciferol 50,000 unit Q7D PO 08/15/24 10:00 08/15/24 08:53 50,000 UNIT Dexmedetomidine HCl 400 mcg/ Dextrose 100 ml @ 3.695 mls/ hr Q24H IV 08/17/24 02:45 09/01/24 15:22 12.933 MLS/HR Acetaminophen 650 mg Q8HPRN PRN [place] 08/17/24 04:15 08/31/24 22:24 650 MG Calcitriol 1 mcg EOD IV 08/17/24 10:00 08/31/24 10:00 1 MCG Norepinephrine Bitartrate 250 ml @ 3.75 mls/hr Q24H IV 08/17/24 09:30 08/19/24 11:29 7.5 MLS/HR Amino Acids 0 ml @ 0 mls/hr PER PHARMACY IV 08/19/24 14:45 Sodium Chloride 10 ml QSHIFT@10,22 IV 08/19/24 22:00 09/01/24 10:50 10 ML Insulin Human (Reg)/Sodium Chloride 100 ml 1945 IV 08/21/24 19:45 UNV Fentanyl Citrate 250 ml @ 2.5 mls/hr Q24H IV 08/22/24 12:15 09/01/24 17:03 50 MLS/HR Acetaminophen 1,000 mg Q6HPRN PRN IV 08/22/24 23:15 09/01/24 11:22 1,000 MG Meropenem 50 ml @ 17 mls/hr Q8H IV 08/23/24 13:00 09/01/24 20:32 17 MLS/HR Micafungin Sodium 100 mg/Sodium Chloride 100 ml @ 100 mls/hr DAILY IV 08/24/24 10:00 09/01/24 10:50 100 MLS/HR Hydromorphone HCl 1.5 mg Q3HPRN PRN IV 08/24/24 10:30 09/01/24 16:52 1.5 MG Rocuronium [place] 50 mg Q3HR PRN IV 08/24/24 10:30 08/25/24 06:08 50 MG Rocuronium [place] 1000 mg/ Dextrose 250 ml @ 10.08 mls/ hr Q24H IV 08/25/24 07:30 09/01/24 10:39 6.678 MLS/HR Hydralazine HCl 10 mg Q6HP PRN IV 08/25/24 17:30 09/01/24 00:19 10 MG Propofol 100 ml @ 2.694 mls/ hr Q24H IV 08/26/24 11:00 09/01/24 16:53 16.164 MLS/HR Labetalol HCl 10 mg Q2HPRN PRN IV 08/26/24 17:00 08/31/24 20:44 10 MG Dextrose/Sodium Chloride 1,000 ml @ 50 mls/hr Q20H IV 08/27/24 09:15 08/31/24 20:41 50 MLS/HR Diagnostic Test (Pha) 1 strip Q6HR 08/28/24 12:00 09/01/24 17:08 1 STRIP Insulin Human Regular Q6HR SC 08/28/24 12:00 09/01/24 17:11 2 UNITS Dextrose 50 ml UD PRN IV 08/28/24 09:15 Doxycycline Hyclate 250 ml @ 125 mls/hr Q12H IV 08/28/24 11:00 09/01/24 12:50 125 MLS/HR Artificial Tears 1 drop Q2HP PRN EACHEYE 08/29/24 12:45 09/01/24 15:22 1 DROP Sodium Chloride 40 meq/Potassium Chloride 40 meq/ Calcium Gluconate 2.3 meq/Magnesium Sulfate 30 meq/ Multivitamins 10 ml/Chromium/ Copper/Manganese/ Zinc 1 ml/Amino Acids/Dextrose 1,153.4462 ml @ 48 mls/hr Q24H2M IV 08/31/24 22:00 09/01/24 21:59 08/31/24 21:08 48 MLS/HR Diazepam 10 mg Q6HR PO 09/01/24 00:00 09/01/24 18:16 10 MG Bumetanide 1 mg BIDD IV 09/01/24 18:00 09/01/24 17:26 1 MG Sodium Chloride 40 meq/Potassium Chloride 35 meq/ Magnesium Sulfate 30 meq/ Multivitamins 10 ml/Chromium/ Copper/Manganese/ Zinc 1 ml/Amino Acids/Dextrose 1,146 ml @ 48 mls/hr [id number] IV 09/01/24 22:00 09/02/24 21:52 Nicardipine HCl 50 mg/Sodium Chloride 250 ml @ 25 mls/hr Q10H IV 09/01/24 14:30 09/01/24 17:38 75 MLS/HR Midazolam HCl 50 ml @ 1 mls/hr Q24H IV 09/01/24 16:30 09/01/24 19:59 17 MLS/HR objective Gen.: Patient lying in bed in medical ICU. Sedated, intubated on mechanical ventilator. Head: Normocephalic, atraumatic. Eyes: PERRLA. Ears: Normal external anatomy. Throat: Endotracheal tube and orogastric tube in place. Neck: Supple, trachea midline. Chest: Transmitted breath sounds bilaterally. Decreased air entry bilaterally. No wheezing. Bibasilar crackles. Cardiovascular: Positive S1, positive S2. Regular rate and rhythm. Abdomen: Positive bowel sounds in all 4 quadrants. Soft, nontender, nondistended. : Gutierrez in place. Normal external genitalia. Rectal: Deferred. Skin: Warm, dry. Intact. Extremities: 2+ radial pulses bilaterally. No lower extremity edema. Neuro: Sedated. laboratory and microbiology Laboratory Tests 09/01/24 03:10 Test 09/01/24 03:10 Range/Units Serum Glucose 155 H 74-106 mg/dL Assessment/Plan Impression: Acute hypoxic respiratory failure On mechanical ventilator Hypertriglyceridemia induced acute pancreatitis Hypocalcemia Hypophosphatemia Peritonitis Acute abdomen Ascites Hyponatremia due to hypotonic IV fluid Vitamin-D deficiency Hypomagnesemia Hyperparathyroidism immune [place] diffuse plasmapheresis Lactic acidosis, improving Events: Remains on vent support On assist control mode with respiratory rate of 22, tidal volume 450, PEEP of 5, FiO2 of 30%. ABG reviewed, compensated. Hemoglobin stable. Patient with fevers up to 101.8 Also noted to have tachycardia/tachypnea Bladder pressures of 7 cmH2O at 4 AM, 12 cmH2O at noon. Surgery recommendations appreciated. On Rocuronium drip for paralytic. Taper down as tolerated. Sedated on Fentanyl, Propofol, Versed. On Precedex drip Continue antibiotics Continue antifungal Nicardipine drip started d/t elevated heart rate. Hydralazine 10 mg q.6 hours PRN SBP >160 mmHg TPN for nutritional support IV fluids with D5-NS. Wound care Diurese w/ Bumex as tolerated Monitor renal function Overall poor prognosis. Labs and imaging reviewed. Rest of plan as noted below. Plan: s/p intubation on mechanical ventilator On assist control mode with respiratory rate of 22, tidal volume 450, PEEP of 5, FiO2 of 30%. Titrate FIO2 to keep O2 saturation above 92%. VAP bundle Daily ABG and CXR while intubated. Sedate for ventilatory synchrony. Start pressors for hemodynamic support if necessary. Keep MAP above 65 mmHg/SBP above 90 mmHg. Continue broad spectrum antibiotics. F/u cultures. Monitor renal function due to Acute kidney injury. Monitor electrolytes. Supplement as necessary. Received calcium gluconate Potassium, calcium and magnesium were supplemented. Continue IV fluids Accu-cheks, on insulin drip. Abdomen was severely distended. Limited ultrasound of the abdomen revealed no pocket amenable for paracentesis. Recommended for RN to check bladder pressure every 6 hours. Currently it was 16 mmHg. Surgery recommendations appreciated - we will consider emergent surgery if abdominal pressures exceeding 25 mmHg. Patient s/p surgical procedure to decompress abdomen on 08/26. GI/DVT prophylaxis. Condition: Critical Prognosis: Poor given multiple comorbidities. Rest of plan per hospitalist and other consultants. A total of 35 minutes of critical care time was spent reviewing the patient record, examining the patient, making a diagnostic and therapeutic plan, discussing this plan with the medical personnel, following up on diagnostic studies and following the patient for clinical stability excluding any and all procedures. At least 50% of this time was spent in direct, [id number] contact. Thank you Dr. Bedolla for allowing me to participate in this patient's care. Further recommendations will depend on patient's clinical course. Please do not hesitate to contact me if you have any questions or concerns. This medical document was created using an electronic medical record system with [employer] dictation system. Although this document has been carefully reviewed, there may still be some phonetic and typographical errors. These areas are purely typographical due to imperfections of the software programs, and do not reflect any compromise in the patient's medical care. Dietary Evaluation Review Comments: 1) Increase TPN to meet at least 75% of estimated needs 2) Advance pt diet when medically feasible to a Low Fat diet 3) Continue current plan of care Expected Outcomes/Goals: 1) Pt diet to advance 2) Pt labs to improve 3) F/U in 2-3 days Plan discussed with: Other (ANDRES Tristan) Critical Care Time(min): 35 JUDE REN MD Sep 01, 2024 21:03
[2024-09-02] VITALS (108 sets, daily range): BP systolic 95–207; BP diastolic 45–145; PULSE 77–146; RESP 20–36; TEMP 98.4–101.5; O2SAT 85–100
[2024-09-02 04:47] LABS: Alanine Aminotransferase 26 U/L (7-40); Albumin 2.9 g/dL (3.2-4.8); Alkaline Phosphatase 101 U/L (46-116); Anion Gap 7 (5-15); Aspartate Aminotransferase 31 U/L (13-40); BUN/Creatinine Ratio 26.6 (10.0-20.0); Blood Urea Nitrogen 21 mg/dL (9-23); Calcium 8.9 mg/dL (8.7-10.4); Carbon Dioxide 26 mmol/L (20-31); Chloride 103 mmol/L (98-107); Glucose 136 mg/dL (74-106); Magnesium 2.2 mg/dL (1.6-2.6); Phosphorus 4.9 mg/dL (2.4-5.1); Potassium 4.6 mmol/L (3.5-5.1); Sodium 136 mmol/L (136-145)
[2024-09-02 04:48] LABS: Bilirubin, Total 0.4 mg/dL (0.2-1.0); Total Protein 5.5 g/dL (5.7-8.2)
--- NOTE | 2024-09-02 08:13 | DVHPN2 ---
Subjective The patient is seen and examined at bedside. Remained intubated. Reviewed: Care Plan, H&P, Labs, Medications Changes from previous H/P or p: No Changes General: Per HPI Eyes: No Pain, No Vision change, No Conjunctivae inflammation, No Eyelid inflammation, No Other, No Redness ENT: No Ear pain, No Ear discharge, No Nose pain, No Nose discharge, No Nose congestion, No Mouth pain, No Mouth swelling, No Throat pain, No Throat swelling, No Other Cardiovascular: No Chest Pain, No Palpitations, No Orthopnea, No Paroxysmal Noc. Dyspnea, No Edema, No Lt Headedness, No Other Respiratory: No Cough, No Dry, No Shortness of breath, No SOB with excertion, No Wheezing, No Hemoptysis, No Pleuritic Pain, No Sputum, No Other Gastrointestinal: Nausea, Vomiting, Abdominal Pain, Diarrhea Genitourinary: No Dysuria, No Frequency, No Incontinence, No Hematuria, No Retention, No Other Musculoskeletal: No other, No neck pain, No shoulder pain, No arm pain, No back pain, No hand pain, No leg pain, No foot pain Skin: No Rash, No Lesions, No Jaundice, No Bruising, No Other Objective Vitals Vital Signs Date Time Temp Pulse Resp B/P (MAP) Pulse Ox O2 Delivery O2 Flow Rate FiO2 09/02/24 07:39 77 24 127/62 (83) 98 30 09/02/24 06:00 Mechanical Ventilator+ 09/02/24 05:30 99.4 99.4 Intake/Output Intake and Output 09/02/24 07:00 Intake Total 5760.584 ml Output Total 5870 ml Balance -109.416 ml Intake Oral 220 ml IV Total 5540.584 ml Output Urine Total 5030 ml Gastric Drainage Total 400 ml Other 440 ml General Appearance: moderate distress, Other (Patient sedated and paralyzed) HEENT: Atraumatic, PERRLA Lungs: Clear to auscultation, Normal air movement, Other (Mechanical ventilation) Cardiovascular: Normal S1, Normal S2 Abdomen: Other (Hypoactive bowel sounds. Greater than serosanguineous drainage. SOLIS drain x 2. ) Genitourinary: No Apparent Abnormalities (Sparrow catheterization) Musculoskeletal: Other (Unable to assess) Skin: Dry, Intact Psych/Mental Status: Other (Unable to assess) Medications Current Medications Medications Dose Ordered Sig/Snow Route Start Time Stop Time Status Last Admin Dose Admin Sodium Chloride 10 ml Q8HR IV 08/14/24 22:00 09/02/24 05:08 10 ML Pantoprazole Sodium 40 mg DAILY IV 08/15/24 10:00 09/01/24 10:50 40 MG Ergocalciferol 50,000 unit Q7D PO 08/15/24 10:00 08/15/24 08:53 50,000 UNIT Dexmedetomidine HCl 400 mcg/ Dextrose 100 ml @ 3.695 mls/ hr Q24H IV 08/17/24 02:45 09/01/24 23:21 12.933 MLS/HR Acetaminophen 650 mg Q8HPRN PRN [place] 08/17/24 04:15 08/31/24 22:24 650 MG Calcitriol 1 mcg EOD IV 08/17/24 10:00 08/31/24 10:00 1 MCG Norepinephrine Bitartrate 250 ml @ 3.75 mls/hr Q24H IV 08/17/24 09:30 08/19/24 11:29 7.5 MLS/HR Amino Acids 0 ml @ 0 mls/hr PER PHARMACY IV 08/19/24 14:45 Sodium Chloride 10 ml QSHIFT@10,22 IV 08/19/24 22:00 09/01/24 21:16 10 ML Insulin Human (Reg)/Sodium Chloride 100 ml 1945 IV 08/21/24 19:45 UNV Fentanyl Citrate 250 ml @ 2.5 mls/hr Q24H IV 08/22/24 12:15 09/02/24 02:40 50 MLS/HR Acetaminophen 1,000 mg Q6HPRN PRN IV 08/22/24 23:15 09/01/24 11:22 1,000 MG Meropenem 50 ml @ 17 mls/hr Q8H IV 08/23/24 13:00 09/02/24 04:09 17 MLS/HR Micafungin Sodium 100 mg/Sodium Chloride 100 ml @ 100 mls/hr DAILY IV 08/24/24 10:00 09/01/24 10:50 100 MLS/HR Hydromorphone HCl 1.5 mg Q3HPRN PRN IV 08/24/24 10:30 09/01/24 16:52 1.5 MG Rocuronium [place] 50 mg Q3HR PRN IV 08/24/24 10:30 08/25/24 06:08 50 MG Rocuronium [place] 1000 mg/ Dextrose 250 ml @ 10.08 mls/ hr Q24H IV 08/25/24 07:30 09/01/24 10:39 6.678 MLS/HR Hydralazine HCl 10 mg Q6HP PRN IV 08/25/24 17:30 09/01/24 00:19 10 MG Propofol 100 ml @ 2.694 mls/ hr Q24H IV 08/26/24 11:00 09/02/24 05:00 8.082 MLS/HR Labetalol HCl 10 mg Q2HPRN PRN IV 08/26/24 17:00 08/31/24 20:44 10 MG Dextrose/Sodium Chloride 1,000 ml @ 50 mls/hr Q20H IV 08/27/24 09:15 09/01/24 21:11 50 MLS/HR Diagnostic Test (Pha) 1 strip Q6HR 08/28/24 12:00 09/02/24 06:28 1 STRIP Insulin Human Regular Q6HR SC 08/28/24 12:00 09/02/24 05:09 2 UNITS Dextrose 50 ml UD PRN IV 08/28/24 09:15 Doxycycline Hyclate 250 ml @ 125 mls/hr Q12H IV 08/28/24 11:00 09/01/24 23:23 125 MLS/HR Artificial Tears 1 drop Q2HP PRN EACHEYE 08/29/24 12:45 09/01/24 15:22 1 DROP Diazepam 10 mg Q6HR PO 09/01/24 00:00 09/02/24 05:07 10 MG Bumetanide 1 mg BIDD IV 09/01/24 18:00 09/02/24 05:07 1 MG Sodium Chloride 40 meq/Potassium Chloride 35 meq/ Magnesium Sulfate 30 meq/ Multivitamins 10 ml/Chromium/ Copper/Manganese/ Zinc 1 ml/Amino Acids/Dextrose 1,146 ml @ 48 mls/hr [id number] IV 09/01/24 22:00 09/02/24 21:52 09/01/24 21:03 48 MLS/HR Nicardipine HCl 50 mg/Sodium Chloride 250 ml @ 25 mls/hr Q10H IV 09/01/24 14:30 09/02/24 04:53 25 MLS/HR Midazolam HCl 50 ml @ 1 mls/hr Q24H IV 09/01/24 16:30 09/02/24 06:43 18 MLS/HR Laboratory Results Laboratory Tests 09/01/24 03:10 09/02/24 03:00 Chemistry Test 09/02/24 03:00 Albumin 2.9 g/dL (3.2-4.8) L Calcium Level 8.9 mg/dL (8.7-10.4) Magnesium Level 2.2 mg/dL (1.6-2.6) Phosphorus Level 4.9 mg/dL (2.4-5.1) Total Protein 5.5 g/dL (5.7-8.2) L LFT Test 09/02/24 03:00 Alanine Aminotransferase (ALT) 26 U/L (7-40) Alkaline Phosphatase 101 U/L (46-116) Aspartate Amino Transferase (AST) 31 U/L (13-40) Total Bilirubin 0.4 mg/dL (0.2-1.0) Urinalysis Test 08/14/24 12:07 08/16/24 12:55 Urine Color Colorless (Yellow) Urine Clarity Clear (Clear) Urine pH 5.5 (5.0-9.0) Urine Specific [place] 1.013 (1.001-1.035) Urine Protein Negative (Negative) Urine Ketones Negative (Negative) Urine Blood 1+ /uL (Negative) H Urine Nitrite Negative (Negative) Urine Bilirubin Negative (Negative) Urine Urobilinogen Normal mg/dL (Negative) Urine Leukocyte Esterase Negative /uL (Negative) Urine RBC 3 /hpf (0 - 4) Urine WBC <1 /hpf (0 - 5) Urine Squamous Epithelial Cells Few /hpf (<5) Urine Bacteria Few /hpf (None Seen) H Urine Glucose Normal mg/dL (Normal) Urine Creatinine 242.96 mg/dL (30.0-125.0) H Urine Protein/Creatinine Ratio 1.09 Urine Sodium 13 mmol/L (40-220) L Urine Total Protein 265.4 mg/dL (1-14) H Blood Gas Results Test 09/02/24 07:09 Arterial Blood pH 7.451 (7.350-7.450) FiO2 % 30.0 Microbiology Microbiology Date/Time Source Procedure Growth Status 08/24/24 08:40 Blood Blood Culture - Final NO GROWTH AFTER 5 DAYS OF INCUBATION. Complete 08/16/24 11:57 Sputum Gram Stain - Final Complete 08/16/24 11:57 Respiratory Culture - Final Beta Strep Non-A, Non-B Complete 08/16/24 01:00 Urine - Midstream Clean Catch Urine Culture - Final Complete 08/15/24 13:32 Nose MRSA Screen - Final Complete Labs and/or images reviewed: Labs reviewed by me Assessment/Plan Assessment/Plan -acute pancreatitis secondary to hypertriglyceridemia -abdominal compartment syndrome -acute hypoxic respiratory failure status post intubation -anemia -gap acidosis -ascites -pleural effusions -sepsis Plan: Continuing current management. Continuing with nicardipine drip. The patient's max out on Versed and fentanyl. Triglyceride still at the level that we can increase propofol. So I will increase it. I also increased versus. Will discuss with pharmacy. Continuing aggressive IV diuresis. Continuing TPN. Continuing with Dilaudid. Restart rocuronium since the patient unable to sedated with three sedation medication. Continuing with IV Dilaudid. Continuing with IV labetalol. Prognosis guarded. Plan discussed with: Other (RN) My Orders Orders - VIKTORIA SALDAÑA MD Procedure Category Date Status Time Sodium Chl 0.9% PHA 09/01/24 In Process (Ns... W/Nicardipine 14:30 Midazolam Drip 50 PHA 09/01/24 In Process Mg/50ml (Versed Drip 5 16:30 Rass Sedation Scale CARLITA 09/01/24 In Process 16:18 Date of Service: Sep 01, 2024 Billing Provider: VIKTORIA SALDAÑA MD Common Visit Codes: [id number] INP/OBS CARE(HIGH) VIKTORIA SALDAÑA MD Sep 02, 2024 08:13
--- NOTE | 2024-09-02 10:18 | DVHPN2 ---
Progress Note Date Seen: Sep 02, 2024 Has the PT tested + for MRSA If YES, has PT been informed?: No Medical Necessity Reason Pt with a Central, PICC or Fol: Yes The following are medically ne: Central Line, Gutierrez Catheter Reason for gutierrez catheter: Strict I&O Objective vital signs Vital Sign Date Time Temp Pulse Resp B/P (MAP) Pulse Ox O2 Delivery O2 Flow Rate FiO2 09/02/24 09:33 177/98 09/02/24 07:39 77 24 98 30 09/02/24 06:00 Mechanical Ventilator+ 09/02/24 05:30 99.4 99.4 Total Intake and Output 09/01/24 09/01/24 09/02/24 15:00 23:00 07:00 Intake Total 2263.054 ml 1623.03 ml 2092.908 ml Output Total 1890 ml 1300 ml 2680 ml Balance 373.054 ml 323.03 ml -587.092 ml medications Current Medications Medications Dose Ordered Sig/Snow Route Start Time Stop Time Status Last Admin Dose Admin Sodium Chloride 10 ml Q8HR IV 08/14/24 22:00 09/02/24 05:08 10 ML Pantoprazole Sodium 40 mg DAILY IV 08/15/24 10:00 09/02/24 09:45 40 MG Ergocalciferol 50,000 unit Q7D PO 08/15/24 10:00 08/15/24 08:53 50,000 UNIT Dexmedetomidine HCl 400 mcg/ Dextrose 100 ml @ 3.695 mls/ hr Q24H IV 08/17/24 02:45 09/01/24 23:21 12.933 MLS/HR Acetaminophen 650 mg Q8HPRN PRN [place] 08/17/24 04:15 08/31/24 22:24 650 MG Calcitriol 1 mcg EOD IV 08/17/24 10:00 09/02/24 09:47 1 MCG Norepinephrine Bitartrate 250 ml @ 3.75 mls/hr Q24H IV 08/17/24 09:30 08/19/24 11:29 7.5 MLS/HR Amino Acids 0 ml @ 0 mls/hr PER PHARMACY IV 08/19/24 14:45 Sodium Chloride 10 ml QSHIFT@ IV 08/19/24 22:00 09/02/24 09:47 10 ML Insulin Human (Reg)/Sodium Chloride 100 ml 1945 IV 08/21/24 19:45 UNV Fentanyl Citrate 250 ml @ 2.5 mls/hr Q24H IV 08/22/24 12:15 09/02/24 07:36 50 MLS/HR Acetaminophen 1,000 mg Q6HPRN PRN IV 08/22/24 23:15 09/01/24 11:22 1,000 MG Meropenem 50 ml @ 17 mls/hr Q8H IV 08/23/24 13:00 09/02/24 04:09 17 MLS/HR Micafungin Sodium 100 mg/Sodium Chloride 100 ml @ 100 mls/hr DAILY IV 08/24/24 10:00 09/02/24 09:36 100 MLS/HR Hydromorphone HCl 1.5 mg Q3HPRN PRN IV 08/24/24 10:30 09/01/24 16:52 1.5 MG Rocuronium [place] 50 mg Q3HR PRN IV 08/24/24 10:30 08/25/24 06:08 50 MG Rocuronium [place] 1000 mg/ Dextrose 250 ml @ 10.08 mls/ hr Q24H IV 08/25/24 07:30 09/01/24 10:39 6.678 MLS/HR Hydralazine HCl 10 mg Q6HP PRN IV 08/25/24 17:30 09/01/24 00:19 10 MG Propofol 100 ml @ 2.694 mls/ hr Q24H IV 08/26/24 11:00 09/02/24 05:00 8.082 MLS/HR Labetalol HCl 10 mg Q2HPRN PRN IV 08/26/24 17:00 08/31/24 20:44 10 MG Dextrose/Sodium Chloride 1,000 ml @ 50 mls/hr Q20H IV 08/27/24 09:15 09/01/24 21:11 50 MLS/HR Diagnostic Test (Pha) 1 strip Q6HR 08/28/24 12:00 09/02/24 06:28 1 STRIP Insulin Human Regular Q6HR SC 08/28/24 12:00 09/02/24 05:09 2 UNITS Dextrose 50 ml UD PRN IV 08/28/24 09:15 Doxycycline Hyclate 250 ml @ 125 mls/hr Q12H IV 08/28/24 11:00 09/01/24 23:23 125 MLS/HR Artificial Tears 1 drop Q2HP PRN EACHEYE 08/29/24 12:45 09/01/24 15:22 1 DROP Diazepam 10 mg Q6HR PO 09/01/24 00:00 09/02/24 05:07 10 MG Bumetanide 1 mg BIDD IV 09/01/24 18:00 09/02/24 05:07 1 MG Sodium Chloride 40 meq/Potassium Chloride 35 meq/ Magnesium Sulfate 30 meq/ Multivitamins 10 ml/Chromium/ Copper/Manganese/ Zinc 1 ml/Amino Acids/Dextrose 1,146 ml @ 48 mls/hr [id number] IV 09/01/24 22:00 09/02/24 21:52 09/01/24 21:03 48 MLS/HR Nicardipine HCl 50 mg/Sodium Chloride 250 ml @ 25 mls/hr Q10H IV 09/01/24 14:30 09/02/24 04:53 25 MLS/HR Midazolam HCl 50 ml @ 1 mls/hr Q24H IV 09/01/24 16:30 09/02/24 09:33 18 MLS/HR laboratory and microbiology Laboratory Tests 09/02/24 03:00 09/01/24 03:10 Test 09/02/24 03:00 Range/Units Serum Glucose 136 H 74-106 mg/dL Problem List/Assessment/Plan Problem List/Assessment/Plan 09/02/24 wound clean dry and intact, pressures 7 , serous fluid from drains, continue current treatment Plan discussed with: Other Dietary Evaluation Review Comments: 1) Increase TPN to meet at least 75% of estimated needs 2) Advance pt diet when medically feasible to a Low Fat diet 3) Continue current plan of care Expected Outcomes/Goals: 1) Pt diet to advance 2) Pt labs to improve 3) F/U in 2-3 days WARNER HILL NP Sep 02, 2024 10:18
[2024-09-02] MEDS: PROPOFOL 100 ML IV SCH (13:50)
[2024-09-02] MEDS: PROPOFOL 100 ML IV ONE (13:55)
[2024-09-02] MEDS: LABETALOL INJECTION 250 MG in SODIUM CHL 0.9% 200 ML IV ONE (15:20)
[2024-09-02 16:32] LABS: Hematocrit 23.6 % (36.0-46.0); Mean Corpuscular Hemoglobin 29.6 pg (28.0-32.0); Mean Corpuscular Hgb Conc. 33.8 g/dL (32.0-36.0); Mean Corpuscular Volume 87.5 fL (80.0-100.0); Platelet Count (auto) 274 10^3/uL (140-450); Red Cell Distribution Width 14.4 % (11.8-14.3); White Blood Cell 10.8 10^3/uL (4.4-10.8)
[2024-09-02 16:35] LABS: Basophils % (manual) 0 (0.0-2.0); Blast Cells 0; Eosinophils % (manual) 0 (0-7); Metamyelocytes % 0; Myelocytes % 0; Promyelocytes % 0; Reactive Lymphocytes 0
--- NOTE | 2024-09-02 17:10 | DVH ---
AP portable chest REASON FOR EXAM: Pneumonia Comparison: 08/31/2004 FINDINGS: No change in position of lines and tubes. Prominent bronchovascular markings in the bases p articularly on the left. IMPRESSION: 1. Findings suggest pulmonary edema
[2024-09-02 17:53] LABS: Band Neutrophils % (manual) 5; Lymphocytes % (manual) 8 (10.0-50.0); Monocytes % (manual) 3 (0-12); Platelet Estimate Adequate
--- NOTE | 2024-09-02 18:09 | DVHPNRES ---
Progress Note Date Seen: Sep 03, 2024 Resident Creating Document: BOZENA TRENT GEOVANNA Has the PT tested + for MRSA If YES, has PT been informed?: No Medical Necessity Reason Pt with a Central, PICC or Fol: Yes The following are medically ne: Central Line, Gutierrez Catheter Reason for gutierrez catheter: Strict I&O Subjective Review of Systems Patient seen and examined at the bedside. Patient is sedated and on mechanical ventilation. Review of systems could not obtain. Patient reports: No new complaints Changes from previous H/P or p: No Changes Objective vital signs Vital Sign Date Time Temp Pulse Resp B/P (MAP) Pulse Ox O2 Delivery O2 Flow Rate FiO2 09/02/24 17:00 112/63 09/02/24 16:44 80 09/02/24 15:43 24 95 30 09/02/24 12:00 98.8 98.8 09/02/24 12:00 Mechanical Ventilator+ Total Intake and Output 09/01/24 09/01/24 09/02/24 15:00 23:00 07:00 Intake Total 2263.054 ml 1623.03 ml 2092.908 ml Output Total 1890 ml 1300 ml 2680 ml Balance 373.054 ml 323.03 ml -587.092 ml medications Current Medications Medications Dose Ordered Sig/Snow Route Start Time Stop Time Status Last Admin Dose Admin Sodium Chloride 10 ml Q8HR IV 08/14/24 22:00 09/02/24 15:29 10 ML Pantoprazole Sodium 40 mg DAILY IV 08/15/24 10:00 09/02/24 09:45 40 MG Ergocalciferol 50,000 unit Q7D PO 08/15/24 10:00 08/15/24 08:53 50,000 UNIT Dexmedetomidine HCl 400 mcg/ Dextrose 100 ml @ 3.695 mls/ hr Q24H IV 08/17/24 02:45 09/02/24 12:33 9.238 MLS/HR Acetaminophen 650 mg Q8HPRN PRN [place] 08/17/24 04:15 08/31/24 22:24 650 MG Calcitriol 1 mcg EOD IV 08/17/24 10:00 09/02/24 09:47 1 MCG Norepinephrine Bitartrate 250 ml @ 3.75 mls/hr Q24H IV 08/17/24 09:30 08/19/24 11:29 7.5 MLS/HR Amino Acids 0 ml @ 0 mls/hr PER PHARMACY IV 08/19/24 14:45 Sodium Chloride 10 ml QSHIFT@10,22 IV 08/19/24 22:00 09/02/24 09:47 10 ML Insulin Human (Reg)/Sodium Chloride 100 ml 1945 IV 08/21/24 19:45 UNV Fentanyl Citrate 250 ml @ 2.5 mls/hr Q24H IV 08/22/24 12:15 09/02/24 16:59 47.5 MLS/HR Acetaminophen 1,000 mg Q6HPRN PRN IV 08/22/24 23:15 09/01/24 11:22 1,000 MG Hydromorphone HCl 1.5 mg Q3HPRN PRN IV 08/24/24 10:30 09/01/24 16:52 1.5 MG Hydralazine HCl 10 mg Q6HP PRN IV 08/25/24 17:30 09/01/24 00:19 10 MG Labetalol HCl 10 mg Q2HPRN PRN IV 08/26/24 17:00 09/02/24 11:02 10 MG Dextrose/Sodium Chloride 1,000 ml @ 50 mls/hr Q20H IV 08/27/24 09:15 09/01/24 21:11 50 MLS/HR Diagnostic Test (Pha) 1 strip Q6HR 08/28/24 12:00 09/02/24 17:08 1 STRIP Insulin Human Regular Q6HR SC 08/28/24 12:00 09/02/24 17:09 3 UNITS Dextrose 50 ml UD PRN IV 08/28/24 09:15 Artificial Tears 1 drop Q2HP PRN EACHEYE 08/29/24 12:45 09/01/24 15:22 1 DROP Diazepam 10 mg Q6HR PO 09/01/24 00:00 09/02/24 17:01 10 MG Bumetanide 1 mg BIDD IV 09/01/24 18:00 09/02/24 17:00 1 MG Sodium Chloride 40 meq/Potassium Chloride 35 meq/ Magnesium Sulfate 30 meq/ Multivitamins 10 ml/Chromium/ Copper/Manganese/ Zinc 1 ml/Amino Acids/Dextrose 1,146 ml @ 48 mls/hr [id number] IV 09/01/24 22:00 09/02/24 21:52 09/01/24 21:03 48 MLS/HR Midazolam HCl 50 ml @ 1 mls/hr Q24H IV 09/01/24 16:30 09/02/24 16:45 17 MLS/HR Sodium Chloride 50 meq/Potassium Chloride 10 meq/ Magnesium Sulfate 26 meq/ Multivitamins 10 ml/Chromium/ Copper/Manganese/ Zinc 1 ml/Amino Acids/Dextrose 1,135 ml @ 47 mls/hr Q24H9M IV 09/02/24 22:00 09/03/24 21:59 Propofol 100 ml @ 2.544 mls/ hr Q24H IV 09/02/24 13:30 09/02/24 13:50 7.632 MLS/HR Enoxaparin Sodium 40 mg DAILY SC 09/03/24 10:00 Atorvastatin Calcium 40 mg HS PO 09/02/24 22:00 Examination General Appearance: Patient is sedated and on mechanical ventilation, RASS score is 2, agitated with frequent nonpurposeful movement HEENT: There is bilateral eye bulging with redness of the sclera Respiratory: Clear to auscultation, Normal air movement Cardiovascular: Regular rate, Normal S1, Normal S2, No murmurs, no chest wall tenderness Abdominal: Normal bowel sounds, Soft, No tenderness, No hepatospenomegaly, No masses Extremities: No clubbing, No cyanosis, No edema, Normal pulses, No tenderness/swelling Skin: No rashes, No breakdown, No significant lesion laboratory and microbiology Laboratory Tests 09/02/24 15:56 09/02/24 03:00 Test 09/02/24 03:00 Range/Units Serum Glucose 136 H 74-106 mg/dL Microbiology Date/Time Source Procedure Growth Status 08/24/24 08:40 Blood Blood Culture - Final NO GROWTH AFTER 5 DAYS OF INCUBATION. Complete 08/16/24 11:57 Sputum Gram Stain - Final Complete 08/16/24 11:57 Respiratory Culture - Final Beta Strep Non-A, Non-B Complete 08/16/24 01:00 Urine - Midstream Clean Catch Urine Culture - Final Complete 08/15/24 13:32 Nose MRSA Screen - Final Complete Labs and/or images reviewed: Labs reviewed by me, Image(s) reviewed by me Problem List/Assessment/Plan Problem List/Assessment/Plan NEURO: Acute metabolic encephalopathy, likely due to pancreatitis leading to abdominal compartment syndrome and respiratory failure Patient is sedated and on mechanical ventilation, with RASS score of +2, agitated and have not purposeful limb movement Discontinue paralytics Diazepam 10 mg q.6 hours p.o. Bilateral I bulging, artificial tears CARDIOVASCULAR: Hypertensive urgency, controlled Stopped nicardipine drip Injection labetalol 10 mg q.2 hours as needed Injection hydralazine 10 mg q.6 hours as needed PULMONARY: Acute hypercapnic/hypoxic respiratory failure due to hypertriglyceridemia induced pancreatitis leading to abdominal compartment syndrome and respiratory failure/pneumonia Pneumonia likely due to Gram-positive Gram-negative bacteria CPAP trial planned for tomorrow a.m. ABGs shows mild metabolic alkalosis with pH 7.451 Bilateral pleural effusion with bibasilar atelectasis Stopped meropenem and doxycycline Repeat culture GI: Abdominal compartment syndrome, status post decompression status post decompressive laparotomy (08/18/2024) re-exploratory irrigation of abdomen on 08/20/2024 Surgery on the board Daily monitoring of intra-abdominal pressure, to the intra-abdominal pressure was 17 GI ppx: Protonix RENAL: Hyponatremia, improved Hypocalcemia, improved, ergocalciferol 45108 Q7D oral and calcitriol 1 mcg IV daily Hypophosphatemia, improved Hypomagnesemia, improved ID: Stopped meropenem and doxycycline Repeat blood culture HEME: Severe anemia, likely due to intra-abdominal bleeding 5 pt of blood has been transfused Monitoring H&H ENDOCRINE: Familiar hypertriglyceridemia Insulin drip has been discontinued Daily triglycerides monitoring Today's triglycerides from is 443 Patient is sensitive to fenofibrate LINES/DRAINS/ACCESS: ETT, put on 08/16/24 IV access Right internal jugular vein, placed on 08/16/2024 Left midline, placed on 08/15/2024 Right PICC line, placed on 08/15/2024 Transurethral Gutierrez catheter, placed on 08/20/2024 Diprivan 50 Precedex 0.7 Versed 25 Fentanyl 550 Removed rectal tube DVT prophylaxis Protonix CODE STATUS: Full code Patient's status was discussed with the father and also updated regarding planned CPAP trial at a.m. Critical time spent more than 50 minutes, including patient care, chart review and updating the family. excluding any procedures. Case discussed with Dr. Bang Plan discussed with: Other (Mother and father) My Orders My Orders Orders - BOZENA TRENT RESDIBOB Procedure Category Date Status Time Blood Culture HEIDE 09/02/24 In Process 14:55 Urine Bacterial HEIDE 09/02/24 Logged Culture 14:55 Respiratory Culture HEIDE 09/02/24 Logged W/ Gs 14:55 Chest Xray 1 View XY 09/02/24 Resulted 14:55 Triglycerides LAB 09/03/24 Verified 04:00 Enoxaparin Sodium PHA 09/03/24 In Process (Lovenox) 10:00 Atorvastatin (Lipitor) PHA 09/02/24 In Process 22:00 Chest Xray 1 View XY 09/02/24 Verified 18:07 Complete Blood Count LAB 09/02/24 Verified 18:07 Comprehensive LAB 09/02/24 Verified Metabolic Panel 18:07 Abg W/ Co-Ox RT 09/03/24 Verified 04:00 Dietary Evaluation Review Comments: 1) Increase TPN to meet at least 75% of estimated needs 2) Advance pt diet when medically feasible to a Low Fat diet 3) Continue current plan of care Expected Outcomes/Goals: 1) Pt diet to advance 2) Pt labs to improve 3) F/U in 2-3 days Date of Service: Sep 04, 2024 Billing Provider: DARWIN BANG MD Common Visit Codes: [id number] CARE 30-74 MIN BOZENA TRENT RESDIENT Sep 02, 2024 18:09 DARWIN BANG MD Sep 05, 2024 13:45
[2024-09-02] MEDS: ENOXAPARIN SOD 40 MG/0.4 ML SYRINGE SC ONE (18:40)
[2024-09-02] MEDS ORDERED: LABETALOL INJECTION 250 MG in SODIUM CHL 0.9% 200 ML IV SCH (19:30)
[2024-09-02] MEDS: LABETALOL INJECTION 250 MG in SODIUM CHL 0.9% 200 ML IV SCH (20:00)
[2024-09-02] MEDS: TPN PER PHARMACY IV NR (21:45)
[2024-09-02] MEDS: ATORVASTATIN 20 MG TAB PO SCH (22:04)
[2024-09-03] VITALS (109 sets, daily range): BP systolic 109–157; BP diastolic 53–104; PULSE 69–128; RESP 20–38; TEMP 98.1–102.6; O2SAT 84–100
--- NOTE | 2024-09-03 04:37 | DVH ---
CHEST RADIOGRAPH Indication: cpap Technique: Single frontal view of the chest was obtained Comparison: XY CHEST XRAY 1 VIEW on DOS: 09/02/24, XY CHEST PORTABLE on DOS: 09/01/24, XY CHEST NASRA BLE on DOS: 08/31/24 IMPRESSION: Support lines and tubes appear unchanged in position. Right PICC line tip is noted at the cavoatrial junction. There is persistent elevation of the right hemidiaphragm. The heart appears prominent siz e. Moderate pulmonary vascular congestion. No discrete pneumothorax. No significant interval change.
[2024-09-03 04:57] LABS: Hematocrit 18.8 % (36.0-46.0); Red Blood Cells 2.16 10^6/uL (4.0-5.20); White Blood Cell 8.2 10^3/uL (4.4-10.8)
[2024-09-03 05:01] LABS: Mean Corpuscular Hemoglobin 29.1 pg (28.0-32.0); Mean Corpuscular Hgb Conc. 33.5 g/dL (32.0-36.0); Mean Corpuscular Volume 86.9 fL (80.0-100.0); Platelet Count (auto) 237 10^3/uL (140-450); Red Cell Distribution Width 14.6 % (11.8-14.3)
[2024-09-03 05:10] LABS: Band Neutrophils % (manual) 0; Basophils % (manual) 0 (0.0-2.0); Blast Cells 0; Metamyelocytes % 0; Myelocytes % 0; Promyelocytes % 0; Reactive Lymphocytes 0
[2024-09-03 05:11] LABS: Hemoglobin 6.3 g/dL (12.2-16.2)
[2024-09-03 07:00] LABS: Eosinophils % (manual) 7 (0-7); Lymphocytes % (manual) 15 (10.0-50.0); Monocytes % (manual) 3 (0-12); Platelet Estimate Adequate
[2024-09-03 08:57] LABS: Alanine Aminotransferase 25 U/L (7-40); Albumin 2.8 g/dL (3.2-4.8); Alkaline Phosphatase 88 U/L (46-116); Anion Gap 5 (5-15); Aspartate Aminotransferase 32 U/L (13-40); BUN/Creatinine Ratio 30.1 (10.0-20.0); Bilirubin, Total 0.3 mg/dL (0.2-1.0); Blood Urea Nitrogen 22 mg/dL (9-23); Carbon Dioxide 28 mmol/L (20-31); Chloride 106 mmol/L (98-107); Glucose 123 mg/dL (74-106); Phosphorus 4.1 mg/dL (2.4-5.1); Sodium 139 mmol/L (136-145); Total Protein 5.2 g/dL (5.7-8.2); Triglycerides 329 mg/dL (< 150)
[2024-09-03] MEDS: ENOXAPARIN SOD 40 MG/0.4 ML SYRINGE SC SCH (10:00)
--- NOTE | 2024-09-03 13:15 | DVH ---
CHEST RADIOGRAPH Indication: ngt placement Technique: Single frontal view of the chest was obtained Comparison: XY CHEST PORTABLE on DOS: 09/03/24, XY CHEST XRAY 1 VIEW on DOS: 09/02/24, XY CHEST NASRA BLE on DOS: 09/01/24, XY CHEST PORTABLE on DOS: 08/31/24, XY CHEST XRAY 1 VIEW on DOS: 08/30/24, XY C HEST PORTABLE on DOS: 09/03/24 FINDINGS: NG tube tip Support lines and tubes appear unchanged in position. Right PICC line tip is noted at the cavoatrial junction. There is persistent elevation of the right hemidiaphragm. The heart appears prominent siz e. Moderate pulmonary vascular congestion. No discrete pneumothorax. No significant interval change. NG tube tipi in stomach. Rigght IJ CVC in SVC. IMPRESSION: NG in stomach, otherwise no change
[2024-09-03] MEDS: MIDAZOLAM DRIP 50 mg/50mL 50 ML IV SCH (15:09)
[2024-09-03] MEDS: fentaNYL Drip 2500mCg/250mlNS 250 ML IV SCH (15:22)
[2024-09-03 15:41] LABS: Base Excess 0.4 mmol/L (-2.0-3.0)
[2024-09-03 17:44] LABS: Basophils # (auto) 0.1 10 ^3/uL (0-0.2); Eosinophils # (auto) 0.2 10 ^3/uL (0-0.8); Hemoglobin 7.8 g/dL (12.2-16.2); Monocytes # (auto) 0.6 10 ^3/uL (0-1.3); Nucleated Red Blood Cells % 0.1 %; White Blood Cell 8.8 10^3/uL (4.4-10.8)
[2024-09-03 17:45] LABS: Hematocrit 22.6 % (36.0-46.0); Lymphocytes # (auto) 1.4 10 ^3/uL (0.4-5.4); Mean Corpuscular Hemoglobin 30.1 pg (28.0-32.0); Mean Corpuscular Hgb Conc. 34.4 g/dL (32.0-36.0); Mean Corpuscular Volume 87.4 fL (80.0-100.0); Monocytes % (auto) 7.3 % (0.0-12.0); Neutrophils # (auto) 6.5 10 ^3/uL (1.6-8.6); Neutrophils % (auto) 73.7 % (37.0-80.0); Platelet Count (auto) 228 10^3/uL (140-450); Red Blood Cells 2.58 10^6/uL (4.0-5.20); Red Cell Distribution Width 14.7 % (11.8-14.3)
[2024-09-03] MEDS: LINEZOLID 600MG/300ML 300 ML IV SCH (21:02)
[2024-09-03] MEDS: TPN PER PHARMACY IV NR (21:49)
[2024-09-03] MEDS: CEFEPIME 2GM/50ML NS 50 ML IV SCH (21:55)
[2024-09-03] MEDS: ROCURONIUM 10MG/ML 10ML VIAL IV PRN (22:23)
--- NOTE | 2024-09-03 22:44 | DVHPNRES ---
Progress Note Date Seen: Sep 03, 2024 Resident Creating Document: BOZENA TRENT RESGHADAENT Has the PT tested + for MRSA If YES, has PT been informed?: No Medical Necessity Reason Pt with a Central, PICC or Fol: Yes The following are medically ne: Central Line, Gutierrez Catheter Reason for gutierrez catheter: Strict I&O Subjective Review of Systems Patient seen and examined at the bedside. Patient is sedated and on mechanical ventilation. Review of systems could not obtain. Objective vital signs Vital Sign Date Time Temp Pulse Resp B/P (MAP) Pulse Ox O2 Delivery O2 Flow Rate FiO2 09/03/24 21:06 114/68 09/03/24 21:00 71 09/03/24 19:44 22 98 30 09/03/24 18:00 Mechanical Ventilator+ 09/03/24 18:00 99.3 99.3 Total Intake and Output 09/02/24 09/02/24 09/03/24 15:00 23:00 07:00 Intake Total 2126.482 ml 1314.351 ml 1025.826 ml Output Total 3120 ml 3080 ml Balance 2126.482 ml -1805.649 ml -2054.174 ml medications Current Medications Medications Dose Ordered Sig/Snow Route Start Time Stop Time Status Last Admin Dose Admin Sodium Chloride 10 ml Q8HR IV 08/14/24 22:00 09/03/24 14:00 10 ML Pantoprazole Sodium 40 mg DAILY IV 08/15/24 10:00 09/03/24 10:06 40 MG Ergocalciferol 50,000 unit Q7D PO 08/15/24 10:00 08/15/24 08:53 50,000 UNIT Dexmedetomidine HCl 400 mcg/ Dextrose 100 ml @ 3.695 mls/ hr Q24H IV 08/17/24 02:45 09/03/24 20:34 12.933 MLS/HR Acetaminophen 650 mg Q8HPRN PRN [place] 08/17/24 04:15 08/31/24 22:24 650 MG Calcitriol 1 mcg EOD IV 08/17/24 10:00 09/02/24 09:47 1 MCG Norepinephrine Bitartrate 250 ml @ 3.75 mls/hr Q24H IV 08/17/24 09:30 08/19/24 11:29 7.5 MLS/HR Amino Acids 0 ml @ 0 mls/hr PER PHARMACY IV 08/19/24 14:45 Sodium Chloride 10 ml QSHIFT@10,22 IV 08/19/24 22:00 09/03/24 10:08 10 ML Insulin Human (Reg)/Sodium Chloride 100 ml 1945 IV 08/21/24 19:45 UNV Acetaminophen 1,000 mg Q6HPRN PRN IV 08/22/24 23:15 09/03/24 07:55 1,000 MG Hydromorphone HCl 1.5 mg Q3HPRN PRN IV 08/24/24 10:30 09/03/24 10:24 1.5 MG Hydralazine HCl 10 mg Q6HP PRN IV 08/25/24 17:30 09/01/24 00:19 10 MG Labetalol HCl 10 mg Q2HPRN PRN IV 08/26/24 17:00 09/02/24 11:02 10 MG Diagnostic Test (Pha) 1 strip Q6HR 08/28/24 12:00 09/03/24 17:18 1 STRIP Insulin Human Regular Q6HR SC 08/28/24 12:00 09/02/24 17:09 3 UNITS Dextrose 50 ml UD PRN IV 08/28/24 09:15 Artificial Tears 1 drop Q2HP PRN EACHEYE 08/29/24 12:45 09/01/24 15:22 1 DROP Diazepam 10 mg Q6HR PO 09/01/24 00:00 09/03/24 05:09 10 MG Bumetanide 1 mg BIDD IV 09/01/24 18:00 09/03/24 17:28 1 MG Propofol 100 ml @ 2.544 mls/ hr Q24H IV 09/02/24 13:30 09/03/24 21:06 25.44 MLS/HR Atorvastatin Calcium 40 mg HS PO 09/02/24 22:00 09/02/24 22:04 40 MG Labetalol HCl 250 mg/Sodium Chloride 250 ml @ 60 mls/hr Q4H10M IV 09/02/24 20:00 Sodium Chloride 40 meq/Potassium Chloride 20 meq/ Magnesium Sulfate 26 meq/ Multivitamins 10 ml/Chromium/ Copper/Manganese/ Zinc 1 ml/Amino Acids/Dextrose 1,137.5 ml @ 47 mls/hr [id number] IV 09/03/24 22:00 09/04/24 21:59 Rocuronium [place] 50 mg Q6HP PRN IV 09/03/24 11:45 Midazolam HCl 50 ml @ 1 mls/hr Q24H IV 09/03/24 13:00 09/03/24 21:06 25 MLS/HR Fentanyl Citrate 250 ml @ 2.5 mls/hr Q24H IV 09/03/24 13:15 09/03/24 15:22 55 MLS/HR Cefepime HCl 50 ml @ 12.5 mls/hr Q12HR IV 09/03/24 22:00 Linezolid 300 ml @ 150 mls/hr Q12H IV 09/03/24 20:00 09/03/24 21:02 150 MLS/HR Examination General Appearance: Patient is sedated and on mechanical ventilation, RASS score is 2, agitated with frequent nonpurposeful movement HEENT: There is bilateral eye bulging with redness of the sclera Respiratory: Clear to auscultation, Normal air movement Cardiovascular: Regular rate, Normal S1, Normal S2, No murmurs, no chest wall tenderness Abdominal: Normal bowel sounds, Soft, No tenderness, No hepatospenomegaly, No masses Extremities: No clubbing, No cyanosis, No edema, Normal pulses, No tenderness/swelling Skin: No rashes, No breakdown, No significant lesion laboratory and microbiology Laboratory Tests 09/03/24 17:18 09/03/24 04:38 Test 09/03/24 04:38 Range/Units Serum Glucose 123 H 74-106 mg/dL Microbiology Date/Time Source Procedure Growth Status 09/02/24 18:49 Voided Urine Urine Culture - Preliminary Resulted 09/02/24 15:58 Blood Blood Culture - Preliminary NO GROWTH AFTER 24 HOURS OF INCUBATION. Resulted 08/16/24 11:57 Sputum Gram Stain - Final Complete 08/16/24 11:57 Respiratory Culture - Final Beta Strep Non-A, Non-B Complete 08/15/24 13:32 Nose MRSA Screen - Final Complete Labs and/or images reviewed: Labs reviewed by me, Image(s) reviewed by me Problem List/Assessment/Plan Problem List/Assessment/Plan NEURO: Acute metabolic encephalopathy, likely due to pancreatitis leading to abdominal compartment syndrome and respiratory failure Patient is sedated and on mechanical ventilation, with RASS score of +2, agitated and have not purposeful limb movement Patient was taken off from the paralytic yesterday, patient became more agitated and had frequent and purposeful limb movement, started back on rocuronium bromide 50 mg q.6 hours p.r.n. Diazepam 10 mg q.6 hours p.o. Bilateral I bulging, artificial tears CARDIOVASCULAR: Hypertensive urgency, controlled Injection labetalol 10 mg q.2 hours as needed Injection hydralazine 10 mg q.6 hours as needed PULMONARY: Acute hypercapnic/hypoxic respiratory failure due to hypertriglyceridemia induced pancreatitis leading to abdominal compartment syndrome and respiratory failure/pneumonia Pneumonia, likely due to Gram-positive Gram-negative bacteria CPAP trial was tried at a.m., the patient could not tolerated as heart rate and respiratory rate was increased and the patient's saturation was dropped, put back on the mechanical ventilation the setting of VT 450, RR 22, peep 5, FiO2 35% ABGs shows normal values Bilateral pleural effusion with bibasilar atelectasis Start linezolid and cefepime Repeat culture GI: Abdominal compartment syndrome, status post decompression status post decompressive laparotomy (08/18/2024) re-exploratory irrigation of abdomen on 08/20/2024 Surgery on the board Daily monitoring of intra-abdominal pressure, to the intra-abdominal pressure was 14 GI ppx: Protonix RENAL: Hyponatremia, improved Hypocalcemia, improved, ergocalciferol 63652 Q7D oral and calcitriol 1 mcg IV daily Hypophosphatemia, improved Hypomagnesemia, improved ID: Meropenem and doxycycline was stopped on 09/02/2024 Patient had spike of fever on 09/03/2024 Started linezolid and cefepime Repeat blood culture HEME: Severe anemia, likely due to intra-abdominal bleeding Six pt of blood has been transfused Monitoring H&H ENDOCRINE: Familiar hypertriglyceridemia Insulin drip has been discontinued Daily triglycerides monitoring Today's triglycerides days 329 Patient is sensitive to fenofibrate Atorvastatin 40 mg daily LINES/DRAINS/ACCESS: ETT, put on 08/16/24 IV access Right internal jugular vein, placed on 08/16/2024 Left midline, placed on 08/15/2024 Right PICC line, placed on 08/15/2024 Transurethral Gutierrez catheter, placed on 08/20/2024 Diprivan 50 Precedex 0.7 Versed 25 Fentanyl 550 Removed rectal tube DVT prophylaxis Due to severe anemia and possible intra-abdominal bleeding, Lovenox has been stopped SCDs CODE STATUS: Full code Patient's status was discussed with the father on the bedside and via telephone, planned for tomorrow a.m. family discussion for the possible of tracheostomy. Critical time spent more than 50 minutes, including patient care, chart review and updating the family. excluding any procedures. Case discussed with Dr. Bang Plan discussed with: Other (Father at the bedside, mother via telephone and RN) My Orders My Orders Orders - BOZENA TRENT RESDIBOB Procedure Category Date Status Time Cefepime 2gm/50ml Ns PHA 09/03/24 In Process (Maxipime 2gm/50ml) 22:00 Triglycerides LAB 09/04/24 Verified 04:00 Linezolid 600mg/300ml PHA 09/03/24 In Process (Zyvox) 20:00 Complete Blood Count LAB 09/04/24 Verified 04:00 Chest Xray 1 View XY 09/04/24 Logged 04:00 Abg W/ Co-Ox RT 09/04/24 Logged 04:00 Dietary Evaluation Review Comments: 1) Increase TPN to meet at least 75% of estimated needs 2) Advance pt diet when medically feasible to a Low Fat diet 3) Continue current plan of care Expected Outcomes/Goals: 1) Pt diet to advance 2) Pt labs to improve 3) F/U in 2-3 days Date of Service: Sep 03, 2024 Billing Provider: DARWIN BANG MD Common Visit Codes: [id number] CARE 30-74 MIN BOZENA TRENT RESDIENT Sep 03, 2024 22:44 DARWIN BANG MD Sep 05, 2024 13:44
[2024-09-04] VITALS (103 sets, daily range): BP systolic 103–182; BP diastolic 59–117; PULSE 67–118; RESP 16–37; TEMP 99.3–102.7; O2SAT 87–100
[2024-09-04 04:26] LABS: Hemoglobin 7.8 g/dL (12.2-16.2); Mean Corpuscular Volume 87.3 fL (80.0-100.0)
[2024-09-04 04:29] LABS: Hematocrit 22.8 % (36.0-46.0); Mean Corpuscular Hgb Conc. 34.4 g/dL (32.0-36.0); Platelet Count (auto) 245 10^3/uL (140-450); Red Blood Cells 2.61 10^6/uL (4.0-5.20); Red Cell Distribution Width 14.8 % (11.8-14.3); White Blood Cell 8.4 10^3/uL (4.4-10.8)
[2024-09-04 04:34] LABS: Basophils % (manual) 0 (0.0-2.0); Blast Cells 0; Metamyelocytes % 0; Myelocytes % 0; Promyelocytes % 0; Reactive Lymphocytes 0
--- NOTE | 2024-09-04 04:37 | DVH ---
CHEST RADIOGRAPH Indication: Pneumonia Technique: Single frontal view of the chest was obtained COMPARISON: XY CHEST PORTABLE on DOS: 09/03/24, XY CHEST PORTABLE on DOS: 09/03/24, XY CHEST XRAY 1 V IEW on DOS: 09/02/24 FINDINGS: Lines and Tubes: Endotracheal tube, enteric catheter, right central venous catheter and right PICC in satisfactory position. Lungs: Pulmonary vascular congestion Pleura: No effusion. No pneumothorax. Cardiomediastinal contours: Unremarkable Bones: Unremarkable IMPRESSION: Lines and tubes in satisfactory position. No significant interval change.
[2024-09-04 04:45] LABS: Alanine Aminotransferase 24 U/L (7-40); Albumin 2.9 g/dL (3.2-4.8); Alkaline Phosphatase 87 U/L (46-116); Anion Gap 8 (5-15); Aspartate Aminotransferase 28 U/L (13-40); BUN/Creatinine Ratio 27.8 (10.0-20.0); Bilirubin, Total 0.4 mg/dL (0.2-1.0); Blood Urea Nitrogen 20 mg/dL (9-23); Calcium 9.3 mg/dL (8.7-10.4); Carbon Dioxide 26 mmol/L (20-31); Chloride 107 mmol/L (98-107); Glucose 127 mg/dL (74-106); Phosphorus 4.6 mg/dL (2.4-5.1); Potassium 3.2 mmol/L (3.5-5.1); Sodium 141 mmol/L (136-145); Total Protein 5.3 g/dL (5.7-8.2); Triglycerides 542 mg/dL (< 150)
[2024-09-04] MEDS ORDERED: POTASSIUM CHL 20MEQ/100ML 100 ML IV SCH (06:30)
[2024-09-04] MEDS: POTASSIUM CHL 20MEQ/100ML 200 ML IV ONE (06:40)
[2024-09-04 06:47] LABS: Band Neutrophils % (manual) 2; Eosinophils % (manual) 1 (0-7); Lymphocytes % (manual) 10 (10.0-50.0); Monocytes % (manual) 2 (0-12)
[2024-09-04 06:48] LABS: Platelet Estimate Adequate; RBC Morphology Normal
[2024-09-04 07:07] LABS: Base Excess 1.4 mmol/L (-2.0-3.0)
[2024-09-04] MEDS: POTASSIUM CHL 20MEQ/100ML 100 ML IV SCH (08:30)
[2024-09-04] MEDS ORDERED: LIDOCAINE 2% JELLY 11ml (GLYDO) ONE (10:34)
[2024-09-04] MEDS ORDERED: LIDOCAINE 2%HCL (LOCAL ANESTH.) INJ 20ML MDV ONE (10:34)
[2024-09-04] MEDS ORDERED: MIDAZOLAM HCL 5 MG/ML-1ML VIAL ONE (10:35)
[2024-09-04] MEDS ORDERED: EPINEPHrine HCL 1 MG/1 ML AMP ONE (10:35)
[2024-09-04] MEDS ORDERED: GLYCOPYRROLATE 0.2 MG/ML 1ML VIAL ONE (10:35)
[2024-09-04] MEDS ORDERED: fentaNYL CITRATE 100 MCG/2 ML VL ONE (10:36)
[2024-09-04] MEDS: LIDOCAINE 2% JELLY 11ml (GLYDO) ONE (10:42)
[2024-09-04] MEDS: ROCURONIUM 10MG/ML 10ML VIAL IV ONE ×2 (11:00→22:15)
--- NOTE | 2024-09-04 12:20 | DVHNC2 ---
Other Procedure Procedure Bronchoscopy Operative Note Procedure Performed: 1. Flexible Bronchoscopy 2. Right lower lobe bronchial washing 3. Left lower lobe bronchial washing Anesthesia/Medication: Patient intubated and sedated Preoperative Diagnosis: Pneumonia Postoperative Diagnosis: Same Estimated Blood Loss: Less than 10 ml Consent: The risk, benefits, and alternatives of bronchoscopy were discussed with the patients who expressed understanding and agreed to proceed. Indications: Findings: No significant endobronchial lesions or abnormalities were seen. Description of the Procedure: Bronchoscope was introduced through the ET tube the bronchoscope was then inserted into the subglottic area, followed by the trachea, bilateral mainstem bronchi, and to the level of the subsegmental bronchi. There was no evidence of intrinsic or extrinsic compression. I first did right lower lobe bronchial washings. I then did left lower lobe bronchial washing At this point, there was no evidence of any ongoing bleeding. The bronchoscope was then withdrawn and the patient was allowed to recover. Date of Service: Sep 04, 2024 Billing Provider: DARWIN CHARLES MD Common Visit Codes: PROCEDURE ONLY Procedure Codes: [id number] DARWIN CHARLES MD Sep 04, 2024 12:20
[2024-09-04] MEDS: fentaNYL Drip 2500mCg/250mlNS 250 ML IV SCH (17:17)
[2024-09-04] MEDS: KETOROLAC TROMETH 30 MG/ML 1ML VIAL IV SCH (18:41)
--- NOTE | 2024-09-04 21:28 | DVHPNRES ---
Progress Note Date Seen: Sep 04, 2024 Resident Creating Document: BOZENA TRENT GEOVANNA Has the PT tested + for MRSA If YES, has PT been informed?: Yes Medical Necessity Reason Pt with a Central, PICC or Fol: Yes The following are medically ne: Central Line, Gutierrez Catheter Reason for gutierrez catheter: Strict I&O Subjective Review of Systems Patient seen and examined at the bedside. Patient is sedated and on mechanical ventilation. Review of systems could not obtain. Patient reports: No new complaints Changes from previous H/P or p: No Changes Objective vital signs Vital Sign Date Time Temp Pulse Resp B/P (MAP) Pulse Ox O2 Delivery O2 Flow Rate FiO2 09/04/24 20:38 149/92 09/04/24 20:31 92 28 97 35 09/04/24 18:00 Mechanical Ventilator+ 09/04/24 06:00 99.5 99.5 Total Intake and Output 09/03/24 09/03/24 09/04/24 15:00 23:00 07:00 Intake Total 1199.344 ml 1622.619 ml 1292.54 ml Output Total 2690 ml 1995 ml Balance 1199.344 ml -1067.381 ml -702.46 ml medications Current Medications Medications Dose Ordered Sig/Snow Route Start Time Stop Time Status Last Admin Dose Admin Sodium Chloride 10 ml Q8HR IV 08/14/24 22:00 09/04/24 16:38 10 ML Pantoprazole Sodium 40 mg DAILY IV 08/15/24 10:00 09/04/24 10:53 40 MG Ergocalciferol 50,000 unit Q7D PO 08/15/24 10:00 08/15/24 08:53 50,000 UNIT Acetaminophen 650 mg Q8HPRN PRN [place] 08/17/24 04:15 08/31/24 22:24 650 MG Calcitriol 1 mcg EOD IV 08/17/24 10:00 09/04/24 10:53 1 MCG Norepinephrine Bitartrate 250 ml @ 3.75 mls/hr Q24H IV 08/17/24 09:30 08/19/24 11:29 7.5 MLS/HR Amino Acids 0 ml @ 0 mls/hr PER PHARMACY IV 08/19/24 14:45 Sodium Chloride 10 ml QSHIFT@ IV 08/19/24 22:00 09/04/24 10:54 10 ML Insulin Human (Reg)/Sodium Chloride 100 ml 1945 IV 08/21/24 19:45 UNV Acetaminophen 1,000 mg Q6HPRN PRN IV 08/22/24 23:15 09/04/24 09:33 1,000 MG Hydromorphone HCl 1.5 mg Q3HPRN PRN IV 08/24/24 10:30 09/04/24 19:59 1.5 MG Hydralazine HCl 10 mg Q6HP PRN IV 08/25/24 17:30 09/01/24 00:19 10 MG Labetalol HCl 10 mg Q2HPRN PRN IV 08/26/24 17:00 09/02/24 11:02 10 MG Diagnostic Test (Pha) 1 strip Q6HR 08/28/24 12:00 09/04/24 18:42 1 STRIP Insulin Human Regular Q6HR SC 08/28/24 12:00 09/04/24 12:38 2 UNITS Dextrose 50 ml UD PRN IV 08/28/24 09:15 Artificial Tears 1 drop Q2HP PRN EACHEYE 08/29/24 12:45 09/01/24 15:22 1 DROP Diazepam 10 mg Q6HR PO 09/01/24 00:00 09/04/24 18:41 10 MG Bumetanide 1 mg BIDD IV 09/01/24 18:00 09/04/24 18:42 1 MG Propofol 100 ml @ 2.544 mls/ hr Q24H IV 09/02/24 13:30 09/04/24 20:38 25.44 MLS/HR Atorvastatin Calcium 40 mg HS PO 09/02/24 22:00 09/03/24 21:50 40 MG Labetalol HCl 250 mg/Sodium Chloride 250 ml @ 60 mls/hr Q4H10M IV 09/02/24 20:00 Sodium Chloride 40 meq/Potassium Chloride 20 meq/ Magnesium Sulfate 26 meq/ Multivitamins 10 ml/Chromium/ Copper/Manganese/ Zinc 1 ml/Amino Acids/Dextrose 1,137.5 ml @ 47 mls/hr [id number] IV 09/03/24 22:00 09/04/24 21:59 09/03/24 21:49 47 MLS/HR Rocuronium [place] 50 mg Q6HP PRN IV 09/03/24 11:45 09/04/24 10:40 50 MG Midazolam HCl 50 ml @ 1 mls/hr Q24H IV 09/03/24 13:00 09/04/24 19:50 25 MLS/HR Cefepime HCl 50 ml @ 12.5 mls/hr Q12HR IV 09/03/24 22:00 09/04/24 10:53 12.5 MLS/HR Linezolid 300 ml @ 150 mls/hr Q12H IV 09/03/24 20:00 09/04/24 20:29 150 MLS/HR Sodium Chloride 20 meq/Potassium Acetate 30 meq/ Magnesium Sulfate 26 meq/ Multivitamins 10 ml/Chromium/ Copper/Manganese/ Zinc 1 ml/Amino Acids/Dextrose 1,137.5 ml @ 47 mls/hr [id number] IV 09/04/24 22:00 09/05/24 21:59 Dexmedetomidine HCl 400 mcg/ Dextrose 100 ml @ 3.96 mls/hr Q24H IV 09/04/24 13:45 09/04/24 18:56 13.86 MLS/HR Ketorolac Tromethamine 15 mg Q6HR IV 09/04/24 18:00 09/09/24 17:59 09/04/24 18:41 15 MG Fentanyl Citrate 250 ml @ 2.5 mls/hr Q24H IV 09/04/24 16:30 09/04/24 17:17 47.5 MLS/HR Examination General Appearance: Patient is sedated and on mechanical ventilation, RASS score is 1 HEENT: There is bilateral eye bulging with redness of the sclera Respiratory: Clear to auscultation, Normal air movement Cardiovascular: Regular rate, Normal S1, Normal S2, No murmurs, no chest wall tenderness Abdominal: Normal bowel sounds, Soft, No tenderness, No hepatospenomegaly, No masses Extremities: No clubbing, No cyanosis, No edema, Normal pulses, No tenderness/swelling Skin: No rashes, No breakdown, No significant lesion laboratory and microbiology Laboratory Tests 09/04/24 03:25 Test 09/04/24 03:25 Range/Units Serum Glucose 127 H 74-106 mg/dL Microbiology Date/Time Source Procedure Growth Status 09/02/24 18:49 Voided Urine Urine Culture - Final Complete 09/02/24 15:58 Blood Blood Culture - Preliminary NO GROWTH AFTER 48 HOURS OF INCUBATION. Resulted 08/16/24 11:57 Sputum Gram Stain - Final Complete 08/16/24 11:57 Respiratory Culture - Final Beta Strep Non-A, Non-B Complete 08/15/24 13:32 Nose MRSA Screen - Final Complete Labs and/or images reviewed: Labs reviewed by me, Image(s) reviewed by me Problem List/Assessment/Plan Problem List/Assessment/Plan NEURO: Acute metabolic encephalopathy, likely due to pancreatitis leading to abdominal compartment syndrome and respiratory failure Patient is sedated and on mechanical ventilation, with RASS score of +1 Continue rocuronium bromide 50 mg q.6 hours p.r.n. Diazepam 10 mg q.6 hours p.o. Bilateral eye bulging, artificial tears Ketorolac 15 mg q.6 hours for pain control CARDIOVASCULAR: Hypertensive urgency, controlled Injection labetalol 10 mg q.2 hours as needed Injection hydralazine 10 mg q.6 hours as needed PULMONARY: Acute hypercapnic/hypoxic respiratory failure due to hypertriglyceridemia induced pancreatitis leading to abdominal compartment syndrome and respiratory failure/pneumonia Pneumonia likely due to Gram-negative Gram-positive bacteria Bronchoscopy performed, there was some secretion on right lower lobe, bronchial lavage of right and left lower bronchi was performed, and the sample was sent for the culture sensitivity, Gram stain and AFB CPAP trial tried, but failed CPAP tomorrow at a.m. ABGs shows normal values Bilateral pleural effusion with bibasilar atelectasis Blood culture from 09/02/2024 shows no growth after 48 hours Continue linezolid and cefepime Repeat culture GI: Abdominal compartment syndrome, status post decompression status post decompressive laparotomy (08/18/2024) re-exploratory irrigation of abdomen on 08/20/2024 Surgery on the board Daily monitoring of intra-abdominal pressure, to the intra-abdominal pressure was 14 GI ppx: Protonix RENAL: Hyponatremia, improved Hypocalcemia, improved, ergocalciferol 12559 Q7D oral and calcitriol 1 mcg IV daily Hypophosphatemia, improved Hypomagnesemia, improved Hypokalemia, supplemented ID: Meropenem and doxycycline was stopped on 09/02/2024 Patient had spike of fever on 09/03/2024 Continue linezolid and cefepime Blood culture From 09/02/2024 shows no growth after 48 hour Urine culture from 09/02/2024 shows no growth HEME: Severe anemia, likely due to intra-abdominal bleeding Six pintt of blood has been transfused Monitoring H&H ENDOCRINE: Familiar hypertriglyceridemia Insulin drip has been discontinued Daily triglycerides monitoring Today's triglycerides days 542 Patient is sensitive to fenofibrate Atorvastatin 40 mg daily LINES/DRAINS/ACCESS: ETT, put on 08/16/24 IV access Right internal jugular vein, placed on 08/16/2024 Left midline, placed on 08/15/2024 Right PICC line, placed on 08/15/2024 Transurethral Gutierrez catheter, placed on 08/20/2024 Diprivan 50 Precedex 0.7 Versed 25 Fentanyl 475 DVT prophylaxis Lovenox SCDs CODE STATUS: Full code Patient's status was discussed with the mother on the bedside, planned for tomorrow a.m. family discussion for the possible of tracheostomy. Critical time spent more than 45 minutes, including patient care, chart review and updating the family. excluding any procedures. Case discussed with Dr. Bang Plan discussed with: Patient, Other (Mother, RN) My Orders My Orders Orders - BOZENA TRENT RESDIBOB Procedure Category Date Status Time Abg W/ Co-Ox RT 09/04/24 Logged 06:39 Bronchosc Dx W/W/O BD 09/04/24 Transmitted Fluor&Wash 14:01 Ketorolac Injection PHA 09/04/24 In Process (Toradol Injection) 18:00 Complete Blood Count LAB 09/05/24 Verified 04:00 Chest Xray 1 View XY 09/05/24 Logged 04:00 Abg W/ Co-Ox RT 09/05/24 Logged 04:00 Triglycerides LAB 09/05/24 Verified 05:00 Triglycerides LAB 09/06/24 Verified 05:00 Triglycerides LAB 09/07/24 Verified 05:00 Communication Order ORDERS 09/04/24 Transmitted 17:55 Cpap Trial For Am ORDERS 09/04/24 Transmitted 17:55 Dietary Evaluation Review Comments: 1) Increase TPN to meet at least 75% of estimated needs 2) Advance pt diet when medically feasible to a Low Fat diet 3) Continue current plan of care Expected Outcomes/Goals: 1) Pt diet to advance 2) Pt labs to improve 3) F/U in 2-3 days Date of Service: Sep 04, 2024 Billing Provider: DARWIN BANG MD Common Visit Codes: [id number] CARE 30-74 MIN BOZENA TRENT Sep 04, 2024 21:28 DARWIN BANG MD Sep 05, 2024 13:52
[2024-09-04] MEDS: TPN PER PHARMACY IV NR (21:30)
[2024-09-05] VITALS (109 sets, daily range): BP systolic 87–119; BP diastolic 43–70; PULSE 61–105; RESP 16–26; TEMP 97.5–100.8; O2SAT 84–99
[2024-09-05 04:00] LABS: Eosinophils # (auto) 0.2 10 ^3/uL (0-0.8); Monocytes # (auto) 0.5 10 ^3/uL (0-1.3); Monocytes % (auto) 7.9 % (0.0-12.0); Neutrophils # (auto) 4.8 10 ^3/uL (1.6-8.6)
[2024-09-05 04:03] LABS: Basophils # (auto) 0 10 ^3/uL (0-0.2); Basophils % (auto) 0.6 % (0.0-2.0); Eosinophils % (auto) 3.3 % (0.0-7.0); Hematocrit 19.9 % (36.0-46.0); Lymphocytes # (auto) 1.3 10 ^3/uL (0.4-5.4); Lymphocytes % (auto) 18.3 % (10.0-50.0); Mean Corpuscular Hgb Conc. 34.2 g/dL (32.0-36.0); Mean Corpuscular Volume 87.7 fL (80.0-100.0); Neutrophils % (auto) 69.9 % (37.0-80.0); Platelet Count (auto) 233 10^3/uL (140-450); Red Blood Cells 2.27 10^6/uL (4.0-5.20); Red Cell Distribution Width 14.5 % (11.8-14.3); White Blood Cell 6.9 10^3/uL (4.4-10.8)
[2024-09-05 04:24] LABS: Alanine Aminotransferase 25 U/L (7-40); Alkaline Phosphatase 90 U/L (46-116); Anion Gap 9 (5-15); BUN/Creatinine Ratio 26.6 (10.0-20.0); Blood Urea Nitrogen 21 mg/dL (9-23); Calcium 9.1 mg/dL (8.7-10.4); Carbon Dioxide 27 mmol/L (20-31); Chloride 106 mmol/L (98-107); Magnesium 1.9 mg/dL (1.6-2.6); Sodium 142 mmol/L (136-145)
[2024-09-05 04:25] LABS: Aspartate Aminotransferase 24 U/L (13-40); Bilirubin, Total 0.5 mg/dL (0.2-1.0)
[2024-09-05 04:28] LABS: Albumin 2.9 g/dL (3.2-4.8); Glucose 115 mg/dL (74-106); Phosphorus 5.2 mg/dL (2.4-5.1); Potassium 3.1 mmol/L (3.5-5.1); Total Protein 5.3 g/dL (5.7-8.2); Triglycerides 320 mg/dL (< 150)
[2024-09-05 04:35] LABS: Hemoglobin 6.8 g/dL (12.2-16.2)
[2024-09-05] MEDS: POTASSIUM CHL 20MEQ/100ML 100 ML IV ONE (05:17)
--- NOTE | 2024-09-05 05:21 | DVH ---
CHEST RADIOGRAPH Indication: Pneumonia Technique: Single frontal view of the chest was obtained Comparison: XY CHEST XRAY 1 VIEW on DOS: 09/04/24, XY CHEST PORTABLE on DOS: 09/03/24, XY CHEST NASRA BLE on DOS: 09/03/24 IMPRESSION: There are low lung volumes. The heart is prominent size. Bilateral alveolar airspace opacities appe ar similar to worsened and likely represent pulmonary edema versus bilateral pneumonia, ARDS. No disc rete pneumothorax. Support lines and tubes appear unchanged in satisfactory position.
[2024-09-05] MEDS: MAGNESIUM SULFATE 1GM/100ML 100 ML IV ONE (09:49)
[2024-09-05] MEDS ORDERED: ENOXAPARIN SOD 30 MG/0.3 ML SYRINGE SC SCH (10:00)
--- NOTE | 2024-09-05 10:38 | DVHPN2 ---
Progress Note Date Seen: Sep 05, 2024 Has the PT tested + for MRSA If YES, has PT been informed?: Yes Medical Necessity Reason Pt with a Central, PICC or Fol: Yes The following are medically ne: Central Line, Gutierrez Catheter Reason for gutierrez catheter: Strict I&O Objective vital signs Vital Sign Date Time Temp Pulse Resp B/P (MAP) Pulse Ox O2 Delivery O2 Flow Rate FiO2 09/05/24 10:26 105/56 09/05/24 10:17 63 22 99 35 09/05/24 09:55 98.1 98.1 09/05/24 06:00 Mechanical Ventilator+ Total Intake and Output 09/04/24 09/04/24 09/05/24 15:00 23:00 07:00 Intake Total 1683.931 ml 1463.10 ml 1208.0 ml Output Total 1860 ml 1240 ml 2125 ml Balance -176.069 ml 223.10 ml -917.0 ml medications Current Medications Medications Dose Ordered Sig/Snow Route Start Time Stop Time Status Last Admin Dose Admin Sodium Chloride 10 ml Q8HR IV 08/14/24 22:00 09/05/24 06:00 10 ML Pantoprazole Sodium 40 mg DAILY IV 08/15/24 10:00 09/05/24 10:23 40 MG Ergocalciferol 50,000 unit Q7D PO 08/15/24 10:00 08/15/24 08:53 50,000 UNIT Acetaminophen 650 mg Q8HPRN PRN ID 08/17/24 04:15 08/31/24 22:24 650 MG Calcitriol 1 mcg EOD IV 08/17/24 10:00 09/04/24 10:53 1 MCG Norepinephrine Bitartrate 250 ml @ 3.75 mls/hr Q24H IV 08/17/24 09:30 08/19/24 11:29 7.5 MLS/HR Amino Acids 0 ml @ 0 mls/hr PER PHARMACY IV 08/19/24 14:45 Sodium Chloride 10 ml QSHIFT@, IV 08/19/24 22:00 09/04/24 21:30 10 ML Insulin Human (Reg)/Sodium Chloride 100 ml 1945 IV 08/21/24 19:45 UNV Acetaminophen 1,000 mg Q6HPRN PRN IV 08/22/24 23:15 09/04/24 09:33 1,000 MG Hydromorphone HCl 1.5 mg Q3HPRN PRN IV 08/24/24 10:30 09/04/24 19:59 1.5 MG Hydralazine HCl 10 mg Q6HP PRN IV 08/25/24 17:30 09/01/24 00:19 10 MG Labetalol HCl 10 mg Q2HPRN PRN IV 08/26/24 17:00 09/02/24 11:02 10 MG Diagnostic Test (Pha) 1 strip Q6HR 08/28/24 12:00 09/05/24 06:00 1 STRIP Insulin Human Regular Q6HR SC 08/28/24 12:00 09/04/24 12:38 2 UNITS Dextrose 50 ml UD PRN IV 08/28/24 09:15 Artificial Tears 1 drop Q2HP PRN EACHEYE 08/29/24 12:45 09/01/24 15:22 1 DROP Diazepam 10 mg Q6HR PO 09/01/24 00:00 09/05/24 06:17 10 MG Bumetanide 1 mg BIDD IV 09/01/24 18:00 09/04/24 18:42 1 MG Propofol 100 ml @ 2.544 mls/ hr Q24H IV 09/02/24 13:30 09/05/24 07:50 25.44 MLS/HR Atorvastatin Calcium 40 mg HS PO 09/02/24 22:00 09/04/24 21:31 40 MG Labetalol HCl 250 mg/Sodium Chloride 250 ml @ 60 mls/hr Q4H10M IV 09/02/24 20:00 Rocuronium [place] 50 mg Q6HP PRN IV 09/03/24 11:45 09/04/24 22:06 50 MG Midazolam HCl 50 ml @ 1 mls/hr Q24H IV 09/03/24 13:00 09/05/24 07:59 25 MLS/HR Cefepime HCl 50 ml @ 12.5 mls/hr Q12HR IV 09/03/24 22:00 09/05/24 10:24 12.5 MLS/HR Linezolid 300 ml @ 150 mls/hr Q12H IV 09/03/24 20:00 09/05/24 08:13 150 MLS/HR Sodium Chloride 20 meq/Potassium Acetate 30 meq/ Magnesium Sulfate 26 meq/ Multivitamins 10 ml/Chromium/ Copper/Manganese/ Zinc 1 ml/Amino Acids/Dextrose 1,137.5 ml @ 47 mls/hr [id number] IV 09/04/24 22:00 09/05/24 21:59 09/04/24 21:30 47 MLS/HR Dexmedetomidine HCl 400 mcg/ Dextrose 100 ml @ 3.96 mls/hr Q24H IV 09/04/24 13:45 09/05/24 10:24 13.86 MLS/HR Ketorolac Tromethamine 15 mg Q6HR IV 09/04/24 18:00 09/09/24 17:59 09/05/24 06:18 15 MG Fentanyl Citrate 250 ml @ 2.5 mls/hr Q24H IV 09/04/24 16:30 09/05/24 10:26 55 MLS/HR laboratory and microbiology Laboratory Tests 09/05/24 03:17 Test 09/05/24 03:17 Range/Units Serum Glucose 115 H 74-106 mg/dL Problem List/Assessment/Plan Problem List/Assessment/Plan 08/19/24 ABDOMINAL PRESXURE IMPROVED, DRESSING DRY, SEROUS DRAINAGE, WILL TAKE TO O.R. MONDAY TO LAVAGE AND RE DRESS, POSSIBLY PLACE FASCIAL SUTURES 08/22/24 ABDOMEN LESS TENSE, DRESSING APPLIED, WILL CONSIDER CLOSURE OF ABDOMEN SOON. 08/23/24 abdomen still quite tense, leukocytosis, fever, urine output adequate, needs to have abdominal pressure determined q 6 hours(informed nurse), possibly return to OR on Monday to close the abdomen if pressures normal. 08/25/24 ABDOMINAL PRESSURE 7, LEUKOCYTOSIS AND FEVER PERSIST, WILL ATTEMPT ABDOMINAL CLOSURE TOMORROW 08/27/24 FEBRILE, ELEVATED WBC, ABDOMEN NONDISTENDED, GOOD URINE OUTPUT, DRESSING DRY 08/28/24 PATIENT'S MOTHER AT BEDSIDE, QUESTIONS ANSWERED, ABDOMEN LESS TENSE, PRESSURE 20, WOUND CLEAN AND WELL APPROXIMATED, KEEP ON ROCURONIUM DRIP TILL ABDOMINAL PRESSURES LESS THAN 15, GOOD URINE OUTPUT 08/29/24 wound clean and well approximated, drainage serous, decreasing volume, labs reviewed, no changes indicated 08/30/24 slow but noticeable improvement, abdomen less tense, wound clean and well approximated, good urine output, no bowel activity yet, continue as is 10/31/23 afebrile, abdomen softer, abdominal pressure reported as 7, wound clean, well approximated, drainage serous, ok to wean off rocuronium and begin weaning off ventilator 09/01/24 ESSENTIALLYT UNCHANGED, WOUND CLEAN, DRAINAGE SEROUS, ABDOMINAL PRESSURE 7 TO 9, CONTINUE IS 09/05/24 abdomen soft, non distended, pressures normalized, good urine output marisol drainage decreasing, she is to have a CT scan today, wound clean and well approximated. :surgically" stable Plan discussed with: Other Dietary Evaluation Review Comments: 1) Increase TPN to meet at least 75% of estimated needs 2) Advance pt diet when medically feasible to a Low Fat diet 3) Continue current plan of care Expected Outcomes/Goals: 1) Pt diet to advance 2) Pt labs to improve 3) F/U in 2-3 days MARILYN OJEDA MD Sep 05, 2024 10:38
--- NOTE | 2024-09-05 12:55 | DVH ---
Exam: CT CT AB PEL WO CON-NO ORAL OR IV History: S/P ABD SURGERY WITH A DROP IN H/H Comparison Study: CT CT AB PEL WO CON-NO ORAL OR IV on DOS: 08/18/24 Technique: Multidetector spiral CT of the abdomen was performed from lung bases to pubic symphysis. Imaging was performed without IV contrast. Axial, coronal and sagittal multiplanar reformats were ob tained from the axial data set by the technologist. Radiation Dose : 1. Abdomen/Pelvis: CTDIvol 18.8 mGy, DLP 1162.28 mGy*cm. Findings: Evaluation of solid organs is limited due to lack of intravenous contrast use. Lung Bases: Partial visualization of a small to moderate left pleural effusion. Trace right pleural e ffusion. Patchy pulmonary opacities in the lower lungs. A central venous catheter terminates in the r ight atrium. Liver: There is hepatomegaly ( liver measures up to 23.7 cm in craniocaudal length). No focal liver l esions are seen. Gallbladder and Biliary Tree: Gallbladder is filled with hyperdense material, similar from prior. Spleen: Unremarkable Pancreas: Significant peripancreatic fluid / edema is again seen. Pancreatic parenchyma is poorly vis ualized given lack of contrast and surrounding peripancreatic fluid. Adrenal Glands: Unremarkable Kidneys: Kidneys are grossly normal without calculi or hydronephrosis. Bladder: Bladder is decompressed with a Sparrow catheter and cannot be adequately assessed. Bowel: Enteric tube is noted within the stomach. Small amount of layering hyperdense material within the dependent portion of the gastric fundus. Small bowel and colon are normal in caliber and distribu tion. The appendix is visualized and is normal in caliber. Rectal tubing is noted. Ascites: [id number] ascites which is similar compared to 08/18/2024. The fluid attenuates sligh tly higher than that of simple fluid (about 22 Hounsfield units) but is similar in volume and appeara nce compared to 08/18/2024. Surgical drains are in place along the right/anterior surface of the live r and along the gastrohepatic space. Lymphadenopathy: No mesenteric, retroperitoneal or periportal lymphadenopathy. Abdominal Wall and Mesentery: Mild generalized anasarca which appears less prominent compared to prio r. Postsurgical changes within the midline abdominal wall with surgical david in place. Vasculature: The visualized abdominal aorta is normal in size and caliber. Evaluation of abdominal a nd pelvic vessels is limited due to lack of intravenous contrast. Pelvic Organs: Unremarkable Musculoskeletal: Similar compression deformity of the L1 vertebral body. IMPRESSION: Evaluation is limited due to lack of intravenous contrast. 1. Significant peripancreatic fluid/edema is again seen. The pancreatic parenchyma is not well evalu ated due to lack of intravenous contrast. Consider correlation with contrast-enhanced CT. 2. Two surgical drains are in place. There is [id number]-[id number] ascites. Some fluid attenuates slightl y higher than simple fluid; however, overall this is similar in volume and appearance compared to adwoa or CT on 08/18/2024. 3. Small to moderate left pleural effusion. Trace right pleural effusion. Patchy opacities in the b ilateral lower lungs. 4. Hyperdense intraluminal density in the gallbladder may be related to prior contrast. 5. Hepatomegaly. 6. No bowel obstruction. Radiation optimization: All CT scans at this facility use at least one of these dose optimization lizzette hniques: automated exposure control mA and/or kV adjustment per patient size (includes targeted exam s where dose is matched to clinical indication) or iterative reconstruction.
[2024-09-05 13:30] LABS: Hematocrit 23.5 % (36.0-46.0)
[2024-09-05] MEDS: PANTOPRAZOLE 40 MG/10 ML VIAL INJ IV SCH (13:45)
[2024-09-05 14:50] LABS: Base Excess -3.5 mmol/L (-2.0-3.0)
--- NOTE | 2024-09-05 14:53 | DVH ---
LEFT Upper Extremity Venous Duplex Clinical History: LT ARM BRUISING , SWELLING , PREVIOUS IV BLEEDING Comparison: None Technique: Duplex Doppler evaluation of the venous system of the LEFT lower neck and upper extremity including color Doppler and spectral/pulsed waveform analysis was performed. Findings: The internal jugular vein demonstrates appropriate compressibility and waveform variability. The subclavian vein is patent on color Doppler evaluation without intraluminal thrombus and demonstra johnna waveform variability. The visualized portion of the brachiocephalic vein is patent on color Doppler evaluation without intr aluminal thrombus and demonstrates waveform variability. The axillary vein demonstrates appropriate compressibility and waveform variability. The brachial veins demonstrate appropriate compressibility and patency on Doppler evaluation. The basilic vein demonstrates appropriate compressibility and patency on Doppler evaluation. The cephalic vein demonstrates appropriate compressibility and patency on Doppler evaluation. Impression: No venous thrombus identified in the LEFT upper extremity vessels evaluated above.
--- NOTE | 2024-09-05 17:47 | DVHPNRES ---
Progress Note Date Seen: Sep 05, 2024 Resident Creating Document: BOZENA TRENT GEOVANNA Has the PT tested + for MRSA If YES, has PT been informed?: Yes Medical Necessity Reason Pt with a Central, PICC or Fol: Yes The following are medically ne: Central Line, Gutierrez Catheter Reason for gutierrez catheter: Strict I&O Subjective Review of Systems Patient seen and examined at the bedside. Patient is sedated and on mechanical ventilation. Review of systems could not obtain. Patient reports: No new complaints Changes from previous H/P or p: No Changes Objective vital signs Vital Sign Date Time Temp Pulse Resp B/P (MAP) Pulse Ox O2 Delivery O2 Flow Rate FiO2 09/05/24 16:32 105/53 09/05/24 16:21 62 22 98 35 09/05/24 16:15 Mechanical Ventilator+ 09/05/24 11:20 98.1 98.1 Total Intake and Output 09/04/24 09/04/24 09/05/24 15:00 23:00 07:00 Intake Total 1683.931 ml 1463.10 ml 1208.0 ml Output Total 1860 ml 1240 ml 2125 ml Balance -176.069 ml 223.10 ml -917.0 ml medications Current Medications Medications Dose Ordered Sig/Snow Route Start Time Stop Time Status Last Admin Dose Admin Sodium Chloride 10 ml Q8HR IV 08/14/24 22:00 09/05/24 14:20 10 ML Ergocalciferol 50,000 unit Q7D PO 08/15/24 10:00 09/05/24 13:08 50,000 UNIT Acetaminophen 650 mg Q8HPRN PRN [place] 08/17/24 04:15 08/31/24 22:24 650 MG Calcitriol 1 mcg EOD IV 08/17/24 10:00 09/04/24 10:53 1 MCG Norepinephrine Bitartrate 250 ml @ 3.75 mls/hr Q24H IV 08/17/24 09:30 08/19/24 11:29 7.5 MLS/HR Amino Acids 0 ml @ 0 mls/hr PER PHARMACY IV 08/19/24 14:45 Sodium Chloride 10 ml QSHIFT@10,22 IV 08/19/24 22:00 09/05/24 10:49 10 ML Insulin Human (Reg)/Sodium Chloride 100 ml 1945 IV 08/21/24 19:45 UNV Acetaminophen 1,000 mg Q6HPRN PRN IV 08/22/24 23:15 09/04/24 09:33 1,000 MG Hydromorphone HCl 1.5 mg Q3HPRN PRN IV 08/24/24 10:30 09/04/24 19:59 1.5 MG Hydralazine HCl 10 mg Q6HP PRN IV 08/25/24 17:30 09/01/24 00:19 10 MG Labetalol HCl 10 mg Q2HPRN PRN IV 08/26/24 17:00 09/02/24 11:02 10 MG Diagnostic Test (Pha) 1 strip Q6HR 08/28/24 12:00 09/05/24 13:02 1 STRIP Insulin Human Regular Q6HR SC 08/28/24 12:00 09/04/24 12:38 2 UNITS Dextrose 50 ml UD PRN IV 08/28/24 09:15 Artificial Tears 1 drop Q2HP PRN EACHEYE 08/29/24 12:45 09/01/24 15:22 1 DROP Diazepam 10 mg Q6HR PO 09/01/24 00:00 09/05/24 13:08 10 MG Bumetanide 1 mg BIDD IV 09/01/24 18:00 09/04/24 18:42 1 MG Propofol 100 ml @ 2.544 mls/ hr Q24H IV 09/02/24 13:30 09/05/24 14:21 25.44 MLS/HR Atorvastatin Calcium 40 mg HS PO 09/02/24 22:00 09/04/24 21:31 40 MG Labetalol HCl 250 mg/Sodium Chloride 250 ml @ 60 mls/hr Q4H10M IV 09/02/24 20:00 Rocuronium [place] 50 mg Q6HP PRN IV 09/03/24 11:45 09/04/24 22:06 50 MG Midazolam HCl 50 ml @ 1 mls/hr Q24H IV 09/03/24 13:00 09/05/24 16:32 25 MLS/HR Cefepime HCl 50 ml @ 12.5 mls/hr Q12HR IV 09/03/24 22:00 09/05/24 10:24 12.5 MLS/HR Linezolid 300 ml @ 150 mls/hr Q12H IV 09/03/24 20:00 09/05/24 08:13 150 MLS/HR Sodium Chloride 20 meq/Potassium Acetate 30 meq/ Magnesium Sulfate 26 meq/ Multivitamins 10 ml/Chromium/ Copper/Manganese/ Zinc 1 ml/Amino Acids/Dextrose 1,137.5 ml @ 47 mls/hr [id number] IV 09/04/24 22:00 09/05/24 21:59 09/04/24 21:30 47 MLS/HR Dexmedetomidine HCl 400 mcg/ Dextrose 100 ml @ 3.96 mls/hr Q24H IV 09/04/24 13:45 09/05/24 14:23 13.86 MLS/HR Ketorolac Tromethamine 15 mg Q6HR IV 09/04/24 18:00 09/09/24 17:59 09/05/24 13:08 15 MG Fentanyl Citrate 250 ml @ 2.5 mls/hr Q24H IV 09/04/24 16:30 09/05/24 15:47 55 MLS/HR Sodium Chloride 20 meq/Potassium Acetate 60 meq/ Magnesium Sulfate 26 meq/ Multivitamins 10 ml/Chromium/ Copper/Manganese/ Zinc 1 ml/Amino Acids/Dextrose 1,152.5 ml @ 48 mls/hr Q24H1M IV 09/05/24 22:00 09/06/24 21:59 Pantoprazole Sodium 40 mg BID IV 09/05/24 13:45 Metoclopramide HCl 5 mg Q12HR IV 09/05/24 22:00 Potassium Chloride 100 ml @ 50 mls/hr DAILY IV 09/06/24 10:00 09/09/24 22:50 Examination General Appearance: Patient is sedated and on mechanical ventilation, RASS score is 1 HEENT: There is bilateral eye bulging with redness of the sclera Respiratory: Clear to auscultation, Normal air movement Cardiovascular: Regular rate, Normal S1, Normal S2, No murmurs, no chest wall tenderness Abdominal: Normal bowel sounds, Soft, No tenderness, No hepatospenomegaly, No masses Extremities: No clubbing, No cyanosis, No edema, Normal pulses, No tenderness/swelling Skin: No rashes, No breakdown, No significant lesion laboratory and microbiology Laboratory Tests 09/05/24 13:17 09/05/24 03:17 Test 09/05/24 03:17 Range/Units Serum Glucose 115 H 74-106 mg/dL Microbiology Date/Time Source Procedure Growth Status 09/04/24 11:21 Bronchial Washings Gram Stain - Final Resulted 09/04/24 11:21 Bronchial Washings Respiratory Culture - Preliminary Resulted 09/02/24 18:49 Voided Urine Urine Culture - Final Complete 09/02/24 15:58 Blood Blood Culture - Preliminary NO GROWTH AFTER 72 HOURS OF INCUBATION. Resulted 08/15/24 13:32 Nose MRSA Screen - Final Complete Labs and/or images reviewed: Labs reviewed by me, Image(s) reviewed by me Problem List/Assessment/Plan Problem List/Assessment/Plan NEURO: Acute metabolic encephalopathy, likely due to pancreatitis leading to abdominal compartment syndrome and respiratory failure Patient is sedated and on mechanical ventilation, with RASS score of +1 Continue rocuronium bromide 50 mg q.6 hours p.r.n. Diazepam 10 mg q.6 hours p.o. Bilateral eye bulging, artificial tears Ketorolac 15 mg q.6 hours for pain control CARDIOVASCULAR: Hypertensive urgency, controlled Injection labetalol 10 mg q.2 hours as needed Injection hydralazine 10 mg q.6 hours as needed PULMONARY: Acute hypercapnic/hypoxic respiratory failure due to hypertriglyceridemia induced pancreatitis leading to abdominal compartment syndrome and respiratory failure/pneumonia Pneumonia likely due to Gram-negative Gram-positive bacteria Bronchoscopy performed on 09/04/2024, there was some secretion on right lower lobe, bronchial lavage of right and left lower bronchi was performed, and the sample was sent for the culture sensitivity, Gram stain and AFB CPAP tomorrow at a.m. ABGs shows normal values Bilateral pleural effusion with bibasilar atelectasis Blood culture from 09/02/2024 shows no growth after 48 hours Continue linezolid and cefepime Repeat culture GI: Abdominal compartment syndrome, status post decompression status post decompressive laparotomy (08/18/2024) re-exploratory irrigation of abdomen on 08/20/2024 Surgery on the board, recommended conservative management Daily monitoring of intra-abdominal pressure, today intra-abdominal pressure was 14 GI ppx: Protonix b.i.d. Reglan CT abdomen repeated and shows significant peripancreatic fluid/edema with [id number] ascites RENAL: Hyponatremia, improved Hypocalcemia, improved, ergocalciferol 49174 Q7D oral and calcitriol 1 mcg IV daily Hypophosphatemia, improved Hypomagnesemia, improved Hypokalemia, KCl 20 mEq daily ID: Meropenem and doxycycline was stopped on 09/02/2024 Patient had spike of fever on 09/03/2024 Continue linezolid and cefepime Blood culture From 09/02/2024 shows no growth after 48 hour Urine culture from 09/02/2024 shows no growth HEME: Severe anemia, likely due to intra-abdominal bleeding Six pintt of blood has been transfused Last night Hb dropped to 6.8, 1 pt of blood has been transfused. ENDOCRINE: Familiar hypertriglyceridemia Insulin drip has been discontinued Daily triglycerides monitoring Today's triglycerides days 320 Patient is sensitive to fenofibrate Atorvastatin 40 mg daily LINES/DRAINS/ACCESS: ETT, put on 08/16/24 IV access Right internal jugular vein, placed on 08/16/2024 Left midline, placed on 08/15/2024 Right PICC line, placed on 08/15/2024 Transurethral Gutierrez catheter, placed on 08/20/2024 Diprivan 50 Precedex 0.7 Versed 25 Fentanyl 475 DVT prophylaxis Stopped Lovenox SCDs CODE STATUS: Full code Patient's status discussed with the mother and father at the bedside. Requirement of the Tracheostomy options were also discussed, but the patient refuses the tracheostomy. Critical time spent more than 45 minutes, including patient care, chart review and updating the family. excluding any procedures. Case discussed with Dr. Bang Plan discussed with: Patient, Other (Mother and father and RN) My Orders My Orders Orders - BOZENA TRENT RESDIENT Procedure Category Date Status Time Communication Order ORDERS 09/04/24 Transmitted 17:55 Cpap Trial For Am ORDERS 09/04/24 Transmitted 17:55 Pantoprazole PHA 09/05/24 In Process (Protonix) 13:45 Stool Occult Blood LAB 09/05/24 Logged 13:43 Metoclopramide PHA 09/05/24 In Process Injection (Reglan 22:00 Potassium Chl PHA 09/06/24 In Process 20meq/100ml 10:00 Dietary Evaluation Review Comments: 1) Increase TPN to meet at least 75% of estimated needs 2) Advance pt diet when medically feasible to a Low Fat diet 3) Continue current plan of care Expected Outcomes/Goals: 1) Pt diet to advance 2) Pt labs to improve 3) F/U in 2-3 days Date of Service: Sep 05, 2024 Billing Provider: DARWIN BANG MD Common Visit Codes: [id number] CARE 30-74 MIN BOZENA TRENT Sep 05, 2024 17:47 DARWIN BANG MD Sep 06, 2024 13:18
[2024-09-05 20:33] LABS: Potassium 3.6 mmol/L (3.5-5.1)
[2024-09-05 20:40] LABS: Magnesium 1.8 mg/dL (1.6-2.6)
[2024-09-05] MEDS: METOCLOPRAMIDE HCL 5MG/ml INJ 2ml VIAL IV SCH (21:52)
[2024-09-05] MEDS: TPN PER PHARMACY IV NR (22:02)
[2024-09-06] VITALS (104 sets, daily range): BP systolic 109–175; BP diastolic 46–123; PULSE 77–120; RESP 18–38; TEMP 99.9–102.4; O2SAT 88–100
[2024-09-06 03:54] LABS: Basophils # (auto) 0.1 10 ^3/uL (0-0.2); Basophils % (auto) 1.4 % (0.0-2.0); Eosinophils # (auto) 0.4 10 ^3/uL (0-0.8); Eosinophils % (auto) 5.7 % (0.0-7.0); Hematocrit 26.1 % (36.0-46.0); Hemoglobin 8.8 g/dL (12.2-16.2); Lymphocytes # (auto) 1.3 10 ^3/uL (0.4-5.4); Lymphocytes % (auto) 17.8 % (10.0-50.0); Mean Corpuscular Hemoglobin 29.9 pg (28.0-32.0); Mean Corpuscular Hgb Conc. 33.9 g/dL (32.0-36.0); Mean Corpuscular Volume 88.4 fL (80.0-100.0); Monocytes # (auto) 0.4 10 ^3/uL (0-1.3); Monocytes % (auto) 6.2 % (0.0-12.0); Neutrophils % (auto) 68.9 % (37.0-80.0); Platelet Count (auto) 263 10^3/uL (140-450); Red Blood Cells 2.95 10^6/uL (4.0-5.20); Red Cell Distribution Width 14.6 % (11.8-14.3); White Blood Cell 7.2 10^3/uL (4.4-10.8)
[2024-09-06 04:11] LABS: Alanine Aminotransferase 23 U/L (7-40); Alkaline Phosphatase 91 U/L (46-116); Anion Gap 9 (5-15); Aspartate Aminotransferase 23 U/L (13-40); BUN/Creatinine Ratio 28.6 (10.0-20.0); Bilirubin, Total 0.5 mg/dL (0.2-1.0); Calcium 9.5 mg/dL (8.7-10.4); Carbon Dioxide 24 mmol/L (20-31); Chloride 107 mmol/L (98-107); Magnesium 1.8 mg/dL (1.6-2.6); Potassium 4.1 mmol/L (3.5-5.1); Sodium 140 mmol/L (136-145); Total Protein 5.9 g/dL (5.7-8.2)
[2024-09-06 04:28] LABS: Albumin 3.1 g/dL (3.2-4.8); Blood Urea Nitrogen 26 mg/dL (9-23); Glucose 108 mg/dL (74-106); Triglycerides 339 mg/dL (< 150)
--- NOTE | 2024-09-06 05:48 | DVH ---
CHEST RADIOGRAPH Indication: Pneumonia Technique: Single frontal view of the chest was obtained Comparison: XY CHEST XRAY 1 VIEW on DOS: 09/05/24 FINDINGS: Lines and Tubes: The endotracheal tube terminates 5.2 cm above the peg. Right central venous cath eter terminates in the superior vena cava. The enteric tube terminates in the GE junction. Lungs: Diffuse bilateral opacities noted. Pleura: No effusion. No pneumothorax. Cardiomediastinal contours: Stable cardiovascular silhouette. Bones: No acute osseous abnormality. IMPRESSION: 1. Stable position of the support lines and tubes. 2. Bilateral opacities which may reflect edema or multifocal pneumonia.
[2024-09-06] MEDS ORDERED: POTASSIUM CHL 20 Meq TABLET PO SCH (10:00)
[2024-09-06] MEDS: POTASSIUM CHL 20MEQ/100ML 100 ML IV SCH (10:08)
[2024-09-06] MEDS: BISACODYL 10 MG RECT SUPP PR ONE (16:07)
[2024-09-06] MEDS: HYDROmorphone HCL 2 MG/ML VL/or syr IV PRN (16:15)
--- NOTE | 2024-09-06 16:58 | DVHPNRES ---
Progress Note Date Seen: Sep 06, 2024 Resident Creating Document: BOZENA TRENT GEOVANNA Has the PT tested + for MRSA If YES, has PT been informed?: Yes Medical Necessity Reason Pt with a Central, PICC or Fol: Yes The following are medically ne: Central Line, Gutierrez Catheter Reason for gutierrez catheter: Strict I&O Subjective Review of Systems Patient seen and examined at the bedside. Patient is sedated and on mechanical ventilation. Review of systems could not obtain. Patient reports: No new complaints Changes from previous H/P or p: No Changes Objective vital signs Vital Sign Date Time Temp Pulse Resp B/P (MAP) Pulse Ox O2 Delivery O2 Flow Rate FiO2 09/06/24 16:15 102 22 141/119 09/06/24 16:00 99 Mechanical Ventilator+ 35 35 09/06/24 14:05 102.4 Total Intake and Output 09/05/24 09/05/24 09/06/24 15:00 23:00 07:00 Intake Total 1749.98 ml 1318.77 ml 1374.38 ml Output Total 1250 ml 1015 ml 2685 ml Balance 499.98 ml 303.77 ml -1310.62 ml medications Current Medications Medications Dose Ordered Sig/Snow Route Start Time Stop Time Status Last Admin Dose Admin Sodium Chloride 10 ml Q8HR IV 08/14/24 22:00 09/06/24 13:36 10 ML Ergocalciferol 50,000 unit Q7D PO 08/15/24 10:00 09/05/24 13:08 50,000 UNIT Acetaminophen 650 mg Q8HPRN PRN [place] 08/17/24 04:15 09/06/24 13:05 650 MG Calcitriol 1 mcg EOD IV 08/17/24 10:00 09/06/24 10:00 1 MCG Norepinephrine Bitartrate 250 ml @ 3.75 mls/hr Q24H IV 08/17/24 09:30 08/19/24 11:29 7.5 MLS/HR Amino Acids 0 ml @ 0 mls/hr PER PHARMACY IV 08/19/24 14:45 Sodium Chloride 10 ml QSHIFT@10,22 IV 08/19/24 22:00 09/06/24 10:58 10 ML Insulin Human (Reg)/Sodium Chloride 100 ml 1945 IV 08/21/24 19:45 UNV Acetaminophen 1,000 mg Q6HPRN PRN IV 08/22/24 23:15 09/06/24 15:44 1,000 MG Hydralazine HCl 10 mg Q6HP PRN IV 08/25/24 17:30 09/01/24 00:19 10 MG Labetalol HCl 10 mg Q2HPRN PRN IV 08/26/24 17:00 09/02/24 11:02 10 MG Diagnostic Test (Pha) 1 strip Q6HR 08/28/24 12:00 09/06/24 12:00 1 STRIP Insulin Human Regular Q6HR SC 08/28/24 12:00 09/05/24 18:01 2 UNITS Dextrose 50 ml UD PRN IV 08/28/24 09:15 Artificial Tears 1 drop Q2HP PRN EACHEYE 08/29/24 12:45 09/05/24 18:29 1 DROP Diazepam 10 mg Q6HR PO 09/01/24 00:00 09/06/24 13:05 10 MG Bumetanide 1 mg BIDD IV 09/01/24 18:00 09/06/24 06:06 1 MG Propofol 100 ml @ 2.544 mls/ hr Q24H IV 09/02/24 13:30 09/06/24 15:23 25.44 MLS/HR Atorvastatin Calcium 40 mg HS PO 09/02/24 22:00 09/05/24 21:52 40 MG Labetalol HCl 250 mg/Sodium Chloride 250 ml @ 60 mls/hr Q4H10M IV 09/02/24 20:00 Rocuronium [place] 50 mg Q6HP PRN IV 09/03/24 11:45 09/04/24 22:06 50 MG Midazolam HCl 50 ml @ 1 mls/hr Q24H IV 09/03/24 13:00 09/06/24 15:23 25 MLS/HR Cefepime HCl 50 ml @ 12.5 mls/hr Q12HR IV 09/03/24 22:00 09/06/24 10:07 12.5 MLS/HR Linezolid 300 ml @ 150 mls/hr Q12H IV 09/03/24 20:00 09/06/24 08:02 150 MLS/HR Dexmedetomidine HCl 400 mcg/ Dextrose 100 ml @ 3.96 mls/hr Q24H IV 09/04/24 13:45 09/06/24 13:58 13.86 MLS/HR Ketorolac Tromethamine 15 mg Q6HR IV 09/04/24 18:00 09/09/24 17:59 09/06/24 13:05 15 MG Fentanyl Citrate 250 ml @ 2.5 mls/hr Q24H IV 09/04/24 16:30 09/06/24 15:32 55 MLS/HR Sodium Chloride 20 meq/Potassium Acetate 60 meq/ Magnesium Sulfate 26 meq/ Multivitamins 10 ml/Chromium/ Copper/Manganese/ Zinc 1 ml/Amino Acids/Dextrose 1,152.5 ml @ 48 mls/hr Q24H1M IV 09/05/24 22:00 09/06/24 21:59 09/05/24 22:02 48 MLS/HR Pantoprazole Sodium 40 mg BID IV 09/05/24 13:45 09/06/24 10:07 40 MG Potassium Chloride 100 ml @ 50 mls/hr DAILY IV 09/06/24 10:00 09/09/24 22:50 09/06/24 10:08 50 MLS/HR Sodium Chloride 20 meq/Potassium Acetate 40 meq/ Magnesium Sulfate 32 meq/ Multivitamins 10 ml/Chromium/ Copper/Manganese/ Zinc 1 ml/Amino Acids/Dextrose 1,144 ml @ 48 mls/hr [id number] IV 09/06/24 22:00 09/07/24 21:59 Hydromorphone HCl 1.5 mg Q6HR PRN IV 09/06/24 15:30 09/06/24 16:15 1.5 MG Examination General Appearance: Patient is sedated and on mechanical ventilation, RASS score is 1 HEENT: There is bilateral eye bulging with redness of the sclera Respiratory: Clear to auscultation, Normal air movement Cardiovascular: Regular rate, Normal S1, Normal S2, No murmurs, no chest wall tenderness Abdominal: Normal bowel sounds, Soft, No tenderness, No hepatospenomegaly, No masses Extremities: No clubbing, No cyanosis, No edema, Normal pulses, No tenderness/swelling Skin: No rashes, No breakdown, No significant lesion laboratory and microbiology Laboratory Tests 09/06/24 03:24 Test 09/06/24 03:24 Range/Units Serum Glucose 108 H 74-106 mg/dL Microbiology Date/Time Source Procedure Growth Status 09/04/24 11:21 Bronchial Washings Gram Stain - Final Resulted 09/04/24 11:21 Bronchial Washings Respiratory Culture - Preliminary Resulted 09/02/24 18:49 Voided Urine Urine Culture - Final Complete 09/02/24 15:58 Blood Blood Culture - Preliminary NO GROWTH AFTER 72 HOURS OF INCUBATION. Resulted 08/15/24 13:32 Nose MRSA Screen - Final Complete Labs and/or images reviewed: Labs reviewed by me, Image(s) reviewed by me Problem List/Assessment/Plan Problem List/Assessment/Plan NEURO: Acute metabolic encephalopathy, likely due to pancreatitis leading to abdominal compartment syndrome and respiratory failure Patient is sedated and on mechanical ventilation, with RASS score of +1 Continue rocuronium bromide 50 mg q.6 hours p.r.n. Diazepam 10 mg q.6 hours p.o. Bilateral eye bulging, artificial tears Ketorolac 15 mg q.6 hours for pain control CARDIOVASCULAR: Hypertensive urgency, controlled Injection labetalol 10 mg q.2 hours as needed Injection hydralazine 10 mg q.6 hours as needed PULMONARY: Acute hypercapnic/hypoxic respiratory failure due to hypertriglyceridemia induced pancreatitis leading to abdominal compartment syndrome and respiratory failure/pneumonia Pneumonia likely due to Gram-negative Gram-positive bacteria Bronchoscopy performed on 09/04/2024, there was some secretion on right lower lobe, bronchial lavage of right and left lower bronchi was performed, and the sample was sent for the culture sensitivity, Gram stain and AFB CPAP trial tried, due to tachypnea failed and the patient was put back on ventilator CPAP tomorrow at a.m. ABGs shows normal values Bilateral pleural effusion with bibasilar atelectasis Blood culture from 09/02/2024 shows no growth after 48 hours Continue linezolid and cefepime Repeat culture GI: Abdominal compartment syndrome, status post decompression status post decompressive laparotomy (08/18/2024) re-exploratory irrigation of abdomen on 08/20/2024 Surgery on the board, recommended conservative management Daily monitoring of intra-abdominal pressure, today intra-abdominal pressure was 14 GI ppx: Protonix b.i.d. Stopped Reglan as per GI recommendation CT abdomen repeated and shows significant peripancreatic fluid/edema with [id number] ascites GI evaluated the patient and recommended enema RENAL: Hyponatremia, improved Hypocalcemia, improved, ergocalciferol 79003 Q7D oral and calcitriol 1 mcg IV daily Hypophosphatemia, improved Hypomagnesemia, improved Hypokalemia normalized, continue KCl 20 mEq daily ID: Meropenem and doxycycline was stopped on 09/02/2024 Patient had spike of fever on 09/03/2024 Continue linezolid and cefepime Blood culture From 09/02/2024 shows no growth after 48 hour Urine culture from 09/02/2024 shows no growth HEME: Severe anemia, likely due to intra-abdominal bleeding Six pintt of blood has been transfused Last night Hb dropped to 6.8, 1 pt of blood has been transfused. ENDOCRINE: Familiar hypertriglyceridemia Insulin drip has been discontinued Daily triglycerides monitoring Today's triglycerides days 339 Patient is sensitive to fenofibrate Atorvastatin 40 mg daily LINES/DRAINS/ACCESS: ETT, put on 08/16/24 IV access Right internal jugular vein, placed on 08/16/2024 Left midline, placed on 08/15/2024 Right PICC line, placed on 08/15/2024 Transurethral Gutierrez catheter, placed on 08/20/2024 Drips Diprivan 50 Precedex 0.7 Versed 25 Fentanyl 550 DVT prophylaxis Stopped Lovenox due to severe anemia and possible intra-abdominal hemorrhage SCDs Diet: NPO TPN CODE STATUS: Full code Patient's status discussed with the mother and father at the bedside. Requirement of the Tracheostomy were also discussed, but the patient refuses the tracheostomy. Critical time spent more than 45 minutes, including patient care, chart review and updating the family. excluding any procedures. Today CPAP trial tried, due to severe tachypnea the trial failed and the patient put back on mechanical ventilator. May try CPAP trial tomorrow a.m. GI evaluated the patient and due to constipation recommended enema. Case discussed with Dr. Bang Plan discussed with: Other (Father, and mother, RN) My Orders My Orders Orders - BOZENA TRENT RESDIBOB Procedure Category Date Status Time Chest Xray 1 View XY 09/06/24 Resulted 04:00 Hydromorphone PHA 09/06/24 In Process Injection (Dilaudid 15:30 Behavioral Restraints ORDERS 09/06/24 Transmitted 15:25 Complete Blood Count LAB 11/30/24 Verified 04:00 Abg W/ Co-Ox RT 09/07/24 Logged 04:00 Chest Xray 1 View XY 09/07/24 Logged 04:00 Dietary Evaluation Review Comments: 1) Increase TPN to meet at least 75% of estimated needs 2) Advance pt diet when medically feasible to a Low Fat diet 3) Continue current plan of care Expected Outcomes/Goals: 1) Pt diet to advance 2) Pt labs to improve 3) F/U in 2-3 days Date of Service: Sep 06, 2024 Billing Provider: DARWIN BANG MD Common Visit Codes: [id number] CARE 30-74 MIN BOZENA TRENT RESDIENT Sep 06, 2024 16:58 DARWIN BANG MD Sep 13, 2024 13:13
--- NOTE | 2024-09-06 17:44 | DVHINCON2 ---
GI Consult Consult Note Date of Consultation: 09/06/2024 Reason for consultation: Anemia Referring Physician:Merritt H&P: The patient is a 34-year-old female with history of hypertriglyceridemia, admitted with an acute abdomen on August 14, who has undergone multiple surgeries due to severe pancreatitis with compartment syndrome, status post exploratory laparotomy, retention sutures, noted to have drop in hemoglobin without overt signs of bleeding. GI consultation was obtained. Per nursing, no hematemesis, NG tube output is bilious, no bowel movements despite Reglan. No evidence of bleeding for wound. History was obtained from the chart. No prior GI history is known. Past Medical History: As above Past Surgical History: As above Current Medications Medications (Trade) Dose Ordered Sig/Snow Route Start Time Stop Time Status Last Admin Dose Admin Sodium Chloride (Saline Lock Ns) 10 ml Q8HR IV 08/14/24 22:00 09/06/24 13:36 10 ML Ergocalciferol (Vitamin D 50,000 Unit) 50,000 unit Q7D PO 08/15/24 10:00 09/05/24 13:08 50,000 UNIT Acetaminophen (Tylenol Suppository) 650 mg Q8HPRN PRN FL 08/17/24 04:15 09/06/24 13:05 650 MG Calcitriol (Calcitriol Injectable) 1 mcg EOD IV 08/17/24 10:00 09/06/24 10:00 1 MCG Norepinephrine Bitartrate 250 ml @ 3.75 mls/hr Q24H IV 08/17/24 09:30 08/19/24 11:29 7.5 MLS/HR Amino Acids 0 ml @ 0 mls/hr PER PHARMACY IV 08/19/24 14:45 Sodium Chloride (Saline Lock Ns) 10 ml QSHIFT@10,22 IV 08/19/24 22:00 09/06/24 10:58 10 ML Insulin Human (Reg)/Sodium Chloride 100 ml 1945 IV 08/21/24 19:45 UNV Acetaminophen (Ofirmev) 1,000 mg Q6HPRN PRN IV 08/22/24 23:15 09/06/24 15:44 1,000 MG Hydralazine HCl (Apresoline Injection) 10 mg Q6HP PRN IV 08/25/24 17:30 09/01/24 00:19 10 MG Labetalol HCl (Labetalol HCl) 10 mg Q2HPRN PRN IV 08/26/24 17:00 09/02/24 11:02 10 MG Diagnostic Test (Pha) (Accu-Chek Comfort Curve T) 1 strip Q6HR 08/28/24 12:00 09/06/24 12:00 1 STRIP Insulin Human Regular (InsuLIN R) Q6HR SC 08/28/24 12:00 09/05/24 18:01 2 UNITS Dextrose 50 ml UD PRN IV 08/28/24 09:15 Artificial Tears (Tears Naturale) 1 drop Q2HP PRN EACHEYE 08/29/24 12:45 09/05/24 18:29 1 DROP Diazepam (Valium Tablet) 10 mg Q6HR PO 09/01/24 00:00 09/06/24 13:05 10 MG Bumetanide (Bumex Injection) 1 mg BIDD IV 09/01/24 18:00 09/06/24 06:06 1 MG Propofol 100 ml @ 2.544 mls/ hr Q24H IV 09/02/24 13:30 09/06/24 15:23 25.44 MLS/HR Atorvastatin Calcium (Lipitor) 40 mg HS PO 09/02/24 22:00 09/05/24 21:52 40 MG Labetalol HCl 250 mg/Sodium Chloride 250 ml @ 60 mls/hr Q4H10M IV 09/02/24 20:00 Rocuronium Nunda 50 mg Q6HP PRN IV 09/03/24 11:45 09/04/24 22:06 50 MG Midazolam HCl 50 ml @ 1 mls/hr Q24H IV 09/03/24 13:00 09/06/24 15:23 25 MLS/HR Cefepime HCl 50 ml @ 12.5 mls/hr Q12HR IV 09/03/24 22:00 09/06/24 10:07 12.5 MLS/HR Linezolid 300 ml @ 150 mls/hr Q12H IV 09/03/24 20:00 09/06/24 08:02 150 MLS/HR Dexmedetomidine HCl 400 mcg/ Dextrose 100 ml @ 3.96 mls/hr Q24H IV 09/04/24 13:45 09/06/24 13:58 13.86 MLS/HR Ketorolac Tromethamine (Toradol Injection) 15 mg Q6HR IV 09/04/24 18:00 09/09/24 17:59 09/06/24 13:05 15 MG Fentanyl Citrate 250 ml @ 2.5 mls/hr Q24H IV 09/04/24 16:30 09/06/24 15:32 55 MLS/HR Sodium Chloride 20 meq/Potassium Acetate 60 meq/ Magnesium Sulfate 26 meq/ Multivitamins 10 ml/Chromium/ Copper/Manganese/ Zinc 1 ml/Amino Acids/Dextrose 1,152.5 ml @ 48 mls/hr Q24H1M IV 09/05/24 22:00 09/06/24 21:59 09/05/24 22:02 48 MLS/HR Pantoprazole Sodium (Protonix) 40 mg BID IV 09/05/24 13:45 09/06/24 10:07 40 MG Potassium Chloride 100 ml @ 50 mls/hr DAILY IV 09/06/24 10:00 09/09/24 22:50 09/06/24 10:08 50 MLS/HR Sodium Chloride 20 meq/Potassium Acetate 40 meq/ Magnesium Sulfate 32 meq/ Multivitamins 10 ml/Chromium/ Copper/Manganese/ Zinc 1 ml/Amino Acids/Dextrose 1,144 ml @ 48 mls/hr [id number] IV 09/06/24 22:00 09/07/24 21:59 Hydromorphone HCl (Dilaudid Injection) 1.5 mg Q6HR PRN IV 09/06/24 15:30 09/06/24 16:15 1.5 MG Social History: EtOH history Family History: Noncontributory Review of Systems: As per HPI , patient has no prior history other than GERD and hypertriglyceridemia prior to this admission Vital Signs Date Time Temp Pulse Resp B/P (MAP) Pulse Ox O2 Delivery O2 Flow Rate FiO2 09/06/24 16:45 94 26 146/83 (104) 92 09/06/24 16:00 Mechanical Ventilator+ 35 35 09/06/24 16:00 102.0 102.0 Physical exam: General: Intubated, agitated despite sedation HEENT: PERRL, no scleral icterus, normal hearing, gums without lesions or bleeding, oropharynx clear without erythema or exudate. Neck: Supple without enlargement of the thyroid, or lymphadenopathy. Heart: Tachycardic regular rhythm Abdomen: Distended, retention sutures in place, moderate tenderness to palpation Extremities: +edematous Neurological: Sedated, withdraws to pain erixis Skin: No rashes, No jaundice Labs: Hemoglobin 8.8 hematocrit 26.1 Imaging: IMPRESSION: Evaluation is limited due to lack of intravenous contrast. 1. Significant peripancreatic fluid/edema is again seen. The pancreatic parenchyma is not well evaluated due to lack of intravenous contrast. Consider correlation with contrast-enhanced CT. 2. Two surgical drains are in place. There is [id number]-kawtrpwg ascites. Some fluid attenuates slightly higher than simple fluid; however, overall this is similar in volume and appearance compared to prior CT on 08/18/2024. 3. Small to moderate left pleural effusion. Trace right pleural effusion. Patchy opacities in the bilateral lower lungs. 4. Hyperdense intraluminal density in the gallbladder may be related to prior contrast. 5. Hepatomegaly. 6. No bowel obstruction. Assessment: # anemia # history of acute abdomen with multiple abdominal surgery # pancreatitis thought to be due to hypertriglyceridemia #Respiratory failure # history of compartment syndrome No evidence of GI bleeding. Any may be secondary to hemodilution versus blood loss from surgery versus other. Consider other etiology Plan: 1. Discontinue Reglan, give Dulcolax suppository 2. Continue pain control 3. No findings to explain the patient's anemia at this time. Hold off on endoscopy and colonoscopy. 4. We will follow 5. Caution with anticoagulation or NSAIDs 6. Check lipase Date of Service: Sep 06, 2024 Billing Provider: OLIVIER ROWLEY MD Common Visit Codes: [id number] INP/OBS CARE (HIGH) Consultation Codes: [id number] CONSULT <60MIN OLIVIER ROWLEY MD Sep 06, 2024 17:44
[2024-09-06] MEDS: TPN PER PHARMACY IV NR (21:45)
[2024-09-07] VITALS (108 sets, daily range): BP systolic 87–154; BP diastolic 37–90; PULSE 67–117; RESP 20–41; TEMP 98.6–102; O2SAT 89–99
[2024-09-07 03:50] LABS: Basophils # (auto) 0 10 ^3/uL (0-0.2); Hemoglobin 7.4 g/dL (12.2-16.2); Monocytes # (auto) 0.5 10 ^3/uL (0-1.3)
[2024-09-07 04:00] LABS: Basophils % (auto) 0.5 % (0.0-2.0); Eosinophils # (auto) 0.3 10 ^3/uL (0-0.8); Eosinophils % (auto) 3.8 % (0.0-7.0); Hematocrit 22.6 % (36.0-46.0); Mean Corpuscular Hemoglobin 30.3 pg (28.0-32.0); Monocytes % (auto) 7.1 % (0.0-12.0); Neutrophils # (auto) 5.3 10 ^3/uL (1.6-8.6); Neutrophils % (auto) 74.6 % (37.0-80.0); Platelet Count (auto) 127 10^3/uL (140-450); Red Blood Cells 2.45 10^6/uL (4.0-5.20); Red Cell Distribution Width 14.5 % (11.8-14.3); White Blood Cell 7.2 10^3/uL (4.4-10.8)
[2024-09-07 04:08] LABS: Alanine Aminotransferase 21 U/L (7-40); Alkaline Phosphatase 87 U/L (46-116); Anion Gap 13 (5-15); BUN/Creatinine Ratio 24.7 (10.0-20.0); Blood Urea Nitrogen 20 mg/dL (9-23); Calcium 8.9 mg/dL (8.7-10.4); Carbon Dioxide 21 mmol/L (20-31); Magnesium 2.1 mg/dL (1.6-2.6); Potassium 4.5 mmol/L (3.5-5.1); Sodium 141 mmol/L (136-145)
[2024-09-07 04:09] LABS: Aspartate Aminotransferase 33 U/L (13-40); Bilirubin, Total 0.6 mg/dL (0.2-1.0)
[2024-09-07 04:11] LABS: Chloride 107 mmol/L (98-107); Glucose 120 mg/dL (74-106); Phosphorus 5.5 mg/dL (2.4-5.1); Total Protein 5.5 g/dL (5.7-8.2)
[2024-09-07 04:22] LABS: Triglycerides 280 mg/dL (< 150)
--- NOTE | 2024-09-07 05:35 | DVH ---
CHEST RADIOGRAPH Indication: Pneumonia Technique: Single frontal view of the chest was obtained Comparison: XY CHEST XRAY 1 VIEW on DOS: 09/06/24, XY CHEST XRAY 1 VIEW on DOS: 09/05/24, XY CHEST XR AY 1 VIEW on DOS: 09/04/24 IMPRESSION: Low lung volumes. The heart remains prominent size. Bilateral interstitial and alveolar airspace opa cities have worsened, no sizable pleural effusion or pneumothorax. Support lines and tubes appear un changed in satisfactory in position.
[2024-09-07 08:11] LABS: Base Excess -2.5 mmol/L (-2.0-3.0)
--- NOTE | 2024-09-07 10:50 | DVHPN2 ---
Subjective Continue to be intubated and sedated with dropping hemoglobin Reviewed: Care Plan, H&P, Labs, Medications, Previous Orders, Radiology, Other (Consultations) Changes from previous H/P or p: No Changes Objective Vitals Vital Signs Date Time Temp Pulse Resp B/P (MAP) Pulse Ox O2 Delivery O2 Flow Rate FiO2 09/07/24 10:28 68 22 97/43 (61) 98 45 09/07/24 09:15 98.8 98.8 09/07/24 08:00 Mechanical Ventilator+ Intake/Output Intake and Output 09/07/24 07:00 Intake Total 4187.70 ml Output Total 6945 ml Balance -2757.30 ml Intake Oral 60 ml IV Total 4127.70 ml Output Urine Total 6175 ml Gastric Drainage Total 400 ml Other 370 ml General Appearance: Other (Intubated and sedated) HEENT: Atraumatic Lungs: Other (Mechanical ventilation sounds) Cardiovascular: Regular rate, Normal S1, Normal S2 Abdomen: Other (Serosanguineous fluid in SOLIS drains; hypoactive bowel sounds) Genitourinary: Other (Sparrow's) Neuro: Other (Intubated and sedated) Psych/Mental Status: Other (Intubated and sedated) Medications Current Medications Medications Dose Ordered Sig/Snow Route Start Time Stop Time Status Last Admin Dose Admin Sodium Chloride 10 ml Q8HR IV 08/14/24 22:00 09/07/24 05:39 10 ML Ergocalciferol 50,000 unit Q7D PO 08/15/24 10:00 09/05/24 13:08 50,000 UNIT Acetaminophen 650 mg Q8HPRN PRN IA 08/17/24 04:15 09/06/24 13:05 650 MG Calcitriol 1 mcg EOD IV 08/17/24 10:00 09/06/24 10:00 1 MCG Norepinephrine Bitartrate 250 ml @ 3.75 mls/hr Q24H IV 08/17/24 09:30 08/19/24 11:29 7.5 MLS/HR Amino Acids 0 ml @ 0 mls/hr PER PHARMACY IV 08/19/24 14:45 Sodium Chloride 10 ml QSHIFT@10,22 IV 08/19/24 22:00 09/07/24 08:33 10 ML Insulin Human (Reg)/Sodium Chloride 100 ml 1945 IV 08/21/24 19:45 UNV Acetaminophen 1,000 mg Q6HPRN PRN IV 08/22/24 23:15 09/07/24 05:34 1,000 MG Hydralazine HCl 10 mg Q6HP PRN IV 08/25/24 17:30 09/01/24 00:19 10 MG Labetalol HCl 10 mg Q2HPRN PRN IV 08/26/24 17:00 09/02/24 11:02 10 MG Diagnostic Test (Pha) 1 strip Q6HR 08/28/24 12:00 09/07/24 05:48 1 STRIP Insulin Human Regular Q6HR SC 08/28/24 12:00 09/05/24 18:01 2 UNITS Dextrose 50 ml UD PRN IV 08/28/24 09:15 Artificial Tears 1 drop Q2HP PRN EACHEYE 08/29/24 12:45 09/05/24 18:29 1 DROP Diazepam 10 mg Q6HR PO 09/01/24 00:00 09/07/24 05:40 10 MG Bumetanide 1 mg BIDD IV 09/01/24 18:00 09/07/24 05:47 1 MG Propofol 100 ml @ 2.544 mls/ hr Q24H IV 09/02/24 13:30 09/07/24 07:49 25.44 MLS/HR Atorvastatin Calcium 40 mg HS PO 09/02/24 22:00 09/06/24 23:54 40 MG Labetalol HCl 250 mg/Sodium Chloride 250 ml @ 60 mls/hr Q4H10M IV 09/02/24 20:00 Rocuronium Harlan 50 mg Q6HP PRN IV 09/03/24 11:45 09/06/24 21:32 50 MG Midazolam HCl 50 ml @ 1 mls/hr Q24H IV 09/03/24 13:00 09/07/24 08:41 25 MLS/HR Linezolid 300 ml @ 150 mls/hr Q12H IV 09/03/24 20:00 09/07/24 08:31 150 MLS/HR Dexmedetomidine HCl 400 mcg/ Dextrose 100 ml @ 3.96 mls/hr Q24H IV 09/04/24 13:45 09/07/24 09:40 13.86 MLS/HR Ketorolac Tromethamine 15 mg Q6HR IV 09/04/24 18:00 09/09/24 17:59 09/07/24 05:40 15 MG Fentanyl Citrate 250 ml @ 2.5 mls/hr Q24H IV 09/04/24 16:30 09/07/24 05:30 55 MLS/HR Pantoprazole Sodium 40 mg BID IV 09/05/24 13:45 09/07/24 08:32 40 MG Potassium Chloride 100 ml @ 50 mls/hr DAILY IV 09/06/24 10:00 09/09/24 22:50 09/07/24 08:32 50 MLS/HR Sodium Chloride 20 meq/Potassium Acetate 40 meq/ Magnesium Sulfate 32 meq/ Multivitamins 10 ml/Chromium/ Copper/Manganese/ Zinc 1 ml/Amino Acids/Dextrose 1,144 ml @ 48 mls/hr [id number] IV 09/06/24 22:00 09/07/24 21:59 09/06/24 21:45 48 MLS/HR Hydromorphone HCl 1.5 mg Q6HR PRN IV 09/06/24 15:30 09/06/24 22:05 1.5 MG Cefepime HCl 50 ml @ 12.5 mls/hr Q8H IV 09/07/24 10:00 Sodium Acetate 20 meq/Potassium Acetate 20 meq/ Magnesium Sulfate 30 meq/ Multivitamins 10 ml/Chromium/ Copper/Manganese/ Zinc 1 ml/Amino Acids/Dextrose 1,088.5 ml @ 45 mls/hr [id number] IV 09/07/24 22:00 09/08/24 21:59 Laboratory Results Laboratory Tests 09/07/24 03:13 Chemistry Test 09/07/24 03:13 Albumin 3.0 g/dL (3.2-4.8) L Calcium Level 8.9 mg/dL (8.7-10.4) Magnesium Level 2.1 mg/dL (1.6-2.6) Phosphorus Level 5.5 mg/dL (2.4-5.1) H Total Protein 5.5 g/dL (5.7-8.2) L Lipid panel Test 09/07/24 03:13 Triglycerides Level 280 mg/dL (< 150) H LFT Test 09/07/24 03:13 Alanine Aminotransferase (ALT) 21 U/L (7-40) Alkaline Phosphatase 87 U/L (46-116) Aspartate Amino Transferase (AST) 33 U/L (13-40) Total Bilirubin 0.6 mg/dL (0.2-1.0) Urinalysis Test 08/14/24 12:07 08/16/24 12:55 Urine Color Colorless (Yellow) Urine Clarity Clear (Clear) Urine pH 5.5 (5.0-9.0) Urine Specific [place] 1.013 (1.001-1.035) Urine Protein Negative (Negative) Urine Ketones Negative (Negative) Urine Blood 1+ /uL (Negative) H Urine Nitrite Negative (Negative) Urine Bilirubin Negative (Negative) Urine Urobilinogen Normal mg/dL (Negative) Urine Leukocyte Esterase Negative /uL (Negative) Urine RBC 3 /hpf (0 - 4) Urine WBC <1 /hpf (0 - 5) Urine Squamous Epithelial Cells Few /hpf (<5) Urine Bacteria Few /hpf (None Seen) H Urine Glucose Normal mg/dL (Normal) Urine Creatinine 242.96 mg/dL (30.0-125.0) H Urine Protein/Creatinine Ratio 1.09 Urine Sodium 13 mmol/L (40-220) L Urine Total Protein 265.4 mg/dL (1-14) H Blood Gas Results Test 09/07/24 07:58 Arterial Blood pH 7.334 (7.350-7.450) FiO2 % 45.0 Microbiology Microbiology Date/Time Source Procedure Growth Status 09/04/24 11:21 Bronchial Washings Gram Stain - Final Resulted 09/04/24 11:21 Respiratory Culture - Preliminary Presumptive Dariana albicans Resulted 09/02/24 18:49 Voided Urine Urine Culture - Final Complete 09/02/24 15:58 Blood Blood Culture - Preliminary NO GROWTH AFTER 72 HOURS OF INCUBATION. Resulted 08/15/24 13:32 Nose MRSA Screen - Final Complete Labs and/or images reviewed: Labs reviewed by me, Image(s) reviewed by me Assessment/Plan Assessment/Plan Covering Dr. Bang/Dr. Albert: #Acute metabolic encephalopathy, likely due to pancreatitis leading to abdominal compartment syndrome and respiratory failure #Septic shock due to complicated pancreatitis with abdominal infection #Acute hypercapnic/hypoxic respiratory failure due to hypertriglyceridemia induced pancreatitis leading to abdominal compartment syndrome and respiratory failure/pneumonia #Pneumonia likely due to Gram-negative Gram-positive bacteria #Abdominal compartment syndrome, status post decompression #Status post decompressive laparotomy on 08/18/2024 #Re-exploratory irrigation of abdomen on 08/20/2024 #Electrolytes imbalance #Severe anemia, likely due to intra-abdominal bleeding #Familiar hypertriglyceridemia Reviewed available imaging studies including chest x-rays and abdomen/pelvis CTs Reviewed available lab studies including ABGs Ordered transfusion of 1 unit of packed RBCs as hemoglobin was 6.9 on ABGs Reviewed consultations teams recommendations Continue oxygen therapy via mechanical ventilation as indicated Continue IV pressors and IV antibiotics as indicated Continue diuretic infusion as indicated Continue statin as indicated Avoid nephrotoxic/hepatotoxic agents Replace electrolytes as indicated Continue close monitoring Goals of care discussed with the patient's mother for 20 minutes; full code 120 minutes of critical care time This medical document was created using an electronic medical record system with computerized dictation system. Although this document has been carefully reviewed, there might still be some phonetic and typographical errors. These areas are purely typographical due to imperfections of the software programs, and do not reflect any compromise in the patient's medical care. Plan discussed with: Other (Mother; boyfriend; nurse) Date of Service: Sep 07, 2024 Billing Provider: EDIS BEDOYA MD Common Visit Codes: 92680-[id number] CARE 30-74 MIN (120 minutes), [id number] CARE-EACH +30MIN Secondary Visit Codes: 99020-[id number] CARE PLAN 30 MINUTES (20 minutes) EDIS BEDOYA MD Sep 07, 2024 10:50
[2024-09-07] MEDS: CEFEPIME 2GM/50ML NS 50 ML IV SCH (11:33)
[2024-09-07] MEDS: ACETYLCYSTEINE 10 %(100MG/ML) SOL 4ML NEB SCH (18:20)
[2024-09-07] MEDS: ALBUTEROL SULF 2.5 MG/0.5ML(0.5%) NEB SOLN NEB SCH (18:20)
--- NOTE | 2024-09-07 18:51 | PRN ---
Misceleneous Note Note Note 09/07/2024 Subjective: Patient with mucousy discolored stools. Small amount of stool with Dulcolax. Otherwise no significant changes NG tube output bilious no significant changes in quantity or characteristics since yesterday. Current Medications Medications (Trade) Dose Ordered Sig/Snow Route Start Time Stop Time Status Last Admin Dose Admin Sodium Chloride (Saline Lock Ns) 10 ml Q8HR IV 08/14/24 22:00 09/07/24 14:24 10 ML Ergocalciferol (Vitamin D 50,000 Unit) 50,000 unit Q7D PO 08/15/24 10:00 09/05/24 13:08 50,000 UNIT Acetaminophen (Tylenol Suppository) 650 mg Q8HPRN PRN RI 08/17/24 04:15 09/06/24 13:05 650 MG Calcitriol (Calcitriol Injectable) 1 mcg EOD IV 08/17/24 10:00 09/06/24 10:00 1 MCG Norepinephrine Bitartrate 250 ml @ 3.75 mls/hr Q24H IV 08/17/24 09:30 08/19/24 11:29 7.5 MLS/HR Amino Acids 0 ml @ 0 mls/hr PER PHARMACY IV 08/19/24 14:45 Sodium Chloride (Saline Lock Ns) 10 ml QSHIFT@10,22 IV 08/19/24 22:00 09/07/24 08:33 10 ML Insulin Human (Reg)/Sodium Chloride 100 ml 1945 IV 08/21/24 19:45 UNV Acetaminophen (Ofirmev) 1,000 mg Q6HPRN PRN IV 08/22/24 23:15 09/07/24 05:34 1,000 MG Hydralazine HCl (Apresoline Injection) 10 mg Q6HP PRN IV 08/25/24 17:30 09/01/24 00:19 10 MG Labetalol HCl (Labetalol HCl) 10 mg Q2HPRN PRN IV 08/26/24 17:00 09/02/24 11:02 10 MG Diagnostic Test (Pha) (Accu-Chek Comfort Curve T) 1 strip Q6HR 08/28/24 12:00 09/07/24 18:00 1 STRIP Insulin Human Regular (InsuLIN R) Q6HR SC 08/28/24 12:00 09/05/24 18:01 2 UNITS Dextrose 50 ml UD PRN IV 08/28/24 09:15 Artificial Tears (Tears Naturale) 1 drop Q2HP PRN EACHEYE 08/29/24 12:45 09/05/24 18:29 1 DROP Diazepam (Valium Tablet) 10 mg Q6HR PO 09/01/24 00:00 09/07/24 18:03 10 MG Bumetanide (Bumex Injection) 1 mg BIDD IV 09/01/24 18:00 09/07/24 05:47 1 MG Propofol 100 ml @ 2.544 mls/ hr Q24H IV 09/02/24 13:30 09/07/24 16:06 25.44 MLS/HR Atorvastatin Calcium (Lipitor) 40 mg HS PO 09/02/24 22:00 09/06/24 23:54 40 MG Labetalol HCl 250 mg/Sodium Chloride 250 ml @ 60 mls/hr Q4H10M IV 09/02/24 20:00 Rocuronium [place] 50 mg Q6HP PRN IV 09/03/24 11:45 09/06/24 21:32 50 MG Midazolam HCl 50 ml @ 1 mls/hr Q24H IV 09/03/24 13:00 09/07/24 18:05 25 MLS/HR Linezolid 300 ml @ 150 mls/hr Q12H IV 09/03/24 20:00 09/07/24 08:31 150 MLS/HR Dexmedetomidine HCl 400 mcg/ Dextrose 100 ml @ 3.96 mls/hr Q24H IV 09/04/24 13:45 09/07/24 16:05 13.86 MLS/HR Ketorolac Tromethamine (Toradol Injection) 15 mg Q6HR IV 09/04/24 18:00 09/09/24 17:59 09/07/24 18:03 15 MG Fentanyl Citrate 250 ml @ 2.5 mls/hr Q24H IV 09/04/24 16:30 09/07/24 14:26 55 MLS/HR Pantoprazole Sodium (Protonix) 40 mg BID IV 09/05/24 13:45 09/07/24 08:32 40 MG Potassium Chloride 100 ml @ 50 mls/hr DAILY IV 09/06/24 10:00 09/09/24 22:50 09/07/24 08:32 50 MLS/HR Sodium Chloride 20 meq/Potassium Acetate 40 meq/ Magnesium Sulfate 32 meq/ Multivitamins 10 ml/Chromium/ Copper/Manganese/ Zinc 1 ml/Amino Acids/Dextrose 1,144 ml @ 48 mls/hr [id number] IV 09/06/24 22:00 09/07/24 21:59 09/06/24 21:45 48 MLS/HR Hydromorphone HCl (Dilaudid Injection) 1.5 mg Q6HR PRN IV 09/06/24 15:30 09/06/24 22:05 1.5 MG Cefepime HCl 50 ml @ 12.5 mls/hr Q8H IV 09/07/24 10:00 09/07/24 18:02 12.5 MLS/HR Sodium Acetate 20 meq/Potassium Acetate 20 meq/ Magnesium Sulfate 30 meq/ Multivitamins 10 ml/Chromium/ Copper/Manganese/ Zinc 1 ml/Amino Acids/Dextrose 1,088.5 ml @ 45 mls/hr [id number] IV 09/07/24 22:00 09/08/24 21:59 Acetylcysteine (Mucomyst Inahalation 10%) 100 mg Q6HR NEB 09/07/24 18:00 09/07/24 18:20 100 MG Albuterol (Ventolin Medneb) 2.5 mg Q6HR NEB 09/07/24 18:00 09/07/24 18:20 2.5 MG Vital Signs Date Time Temp Pulse Resp B/P (MAP) Pulse Ox O2 Delivery O2 Flow Rate FiO2 09/07/24 18:05 68 22 94/46 (62) 94 35 09/07/24 17:30 98.8 98.8 09/07/24 16:00 Mechanical Ventilator+ Physical exam: General: Intubated, agitated despite sedation HEENT: PERRL, no scleral icterus, normal hearing, gums without lesions or bleeding, oropharynx clear without erythema or exudate. Neck: Supple without enlargement of the thyroid, or lymphadenopathy. Heart: Tachycardic regular rhythm Abdomen: Distended, retention sutures in place, moderate tenderness to palpation Extremities: +edematous Neurological: Sedated, withdraws to pain erixis Skin: No rashes, No jaundice Labs: Vital Signs Date Time Temp Pulse Resp B/P (MAP) Pulse Ox O2 Delivery O2 Flow Rate FiO2 09/07/24 18:05 68 22 94/46 (62) 94 35 09/07/24 18:00 93/48 09/07/24 17:30 98.8 69 22 94/46 (62) 94 98.8 09/07/24 17:15 98.8 68 22 95/45 98.8 09/07/24 17:15 98.8 68 22 95/45 (62) 94 98.8 09/07/24 17:00 98.6 69 22 100/48 (65) 94 98.6 09/07/24 16:45 98.6 69 22 97/50 (66) 95 98.6 09/07/24 16:44 98.6 69 22 97/50 98.6 09/07/24 16:30 98.6 67 22 99/52 (68) 95 98.6 09/07/24 16:15 98.6 67 22 93/46 (62) 95 98.6 09/07/24 16:00 98.6 68 24 95/47 (63) 95 98.6 09/07/24 16:00 22 94 Mechanical Ventilator+ 35 35 09/07/24 16:00 68 09/07/24 16:00 40 09/07/24 15:59 68 22 95/47 (63) 94 35 09/07/24 15:45 98.6 67 22 93/41 (58) 94 98.6 09/07/24 15:45 98.6 67 22 93/41 98.6 09/07/24 15:30 98.8 67 22 93/43 (60) 95 98.8 09/07/24 15:15 98.8 68 22 95/42 (59) 93 98.8 09/07/24 15:15 98.8 67 22 93/43 98.8 09/07/24 15:00 98.8 67 22 92/40 (57) 94 98.8 09/07/24 15:00 98.6 67 22 92/40 98.6 09/07/24 14:45 98.8 68 22 91/39 98.8 09/07/24 14:45 98.8 67 22 91/39 (56) 94 98.8 09/07/24 14:30 67 22 94/44 (61) 94 35 09/07/24 14:30 67 22 94/44 (61) 96 09/07/24 14:15 98.8 67 22 92/42 (59) 95 98.8 09/07/24 14:00 40 09/07/24 14:00 22 95 Mechanical Ventilator+ 40 40 09/07/24 14:00 98.8 68 22 93/44 (60) 96 98.8 09/07/24 14:00 67 09/07/24 13:45 98.8 68 22 93/45 (61) 95 98.8 09/07/24 13:30 99.1 70 22 97/44 (61) 96 99.1 09/07/24 13:15 99.1 71 23 93/46 (62) 96 99.1 09/07/24 13:00 99.1 72 22 104/48 (66) 99 99.1 09/07/24 12:45 99.1 72 23 98 99.1 09/07/24 12:30 99.1 73 21 99 99.1 09/07/24 12:15 99.1 70 23 94/42 (59) 97 99.1 09/07/24 12:11 70 22 96/45 (62) 96 40 09/07/24 12:00 71 22 96/45 (62) 97 09/07/24 12:00 22 96 Mechanical Ventilator+ 40 40 09/07/24 12:00 71 09/07/24 12:00 40 09/07/24 11:45 70 22 103/41 (61) 97 09/07/24 11:30 69 22 98/40 (59) 97 09/07/24 11:15 69 22 93/43 (60) 97 09/07/24 11:00 69 23 96/41 (59) 97 09/07/24 10:45 68 23 98/45 (62) 98 09/07/24 10:30 68 22 97/43 (61) 98 09/07/24 10:28 68 22 97/43 (61) 98 40 09/07/24 10:15 68 23 95/39 (57) 97 09/07/24 10:00 22 95 Mechanical Ventilator+ 40 40 09/07/24 10:00 67 09/07/24 10:00 40 09/07/24 10:00 67 22 96/42 (60) 98 09/07/24 09:45 68 23 97/43 (61) 97 09/07/24 09:40 91/41 09/07/24 09:15 98.8 68 22 92/42 (59) 97 98.8 09/07/24 09:00 98.8 67 22 92/41 (58) 97 98.8 09/07/24 08:45 98.8 67 22 96/40 (58) 97 98.8 09/07/24 08:33 68 22 91/40 (57) 97 40 09/07/24 08:30 98.8 67 22 91/40 (57) 97 98.8 09/07/24 08:15 99.1 69 22 87/37 (54) 96 99.1 09/07/24 08:00 22 96 Mechanical Ventilator+ 40 40 09/07/24 08:00 40 09/07/24 08:00 69 09/07/24 08:00 69 22 97 Mechanical Ventilator+ 45 45 09/07/24 08:00 99.1 69 22 100/40 (60) 98 99.1 09/07/24 07:45 99.1 68 22 99/41 (60) 98 99.1 09/07/24 07:30 99.1 68 22 97/40 (59) 98 99.1 09/07/24 07:15 99.1 68 22 100/39 (59) 98 99.1 09/07/24 07:00 99.1 68 22 98/38 (58) 98 99.1 09/07/24 06:45 69 22 102/38 (59) 98 09/07/24 06:30 69 22 99/37 (57) 98 09/07/24 06:15 69 22 102/39 (60) 98 09/07/24 06:01 70 22 103/44 (63) 97 45 09/07/24 06:00 71 09/07/24 06:00 45 09/07/24 06:00 71 23 103/44 (63) 98 09/07/24 06:00 23 98 Mechanical Ventilator+ 45 45 09/07/24 05:47 107/46 09/07/24 05:45 73 23 107/46 (66) 98 09/07/24 05:30 74 26 108/50 (69) 97 09/07/24 05:15 74 23 113/53 (73) 97 09/07/24 05:00 74 24 109/46 (67) 97 09/07/24 04:45 75 23 105/46 (65) 97 09/07/24 04:30 74 24 109/51 (70) 97 09/07/24 04:15 73 23 107/51 (69) 99 09/07/24 04:11 73 23 107/51 (69) 98 45 09/07/24 04:00 22 98 Mechanical Ventilator+ 45 45 09/07/24 04:00 74 09/07/24 04:00 99.5 73 22 108/53 (71) 97 99.5 09/07/24 04:00 45 09/07/24 03:45 73 23 108/46 (66) 97 09/07/24 03:30 73 22 107/51 (69) 98 09/07/24 03:15 74 23 105/49 (67) 98 09/07/24 03:00 73 22 99/43 (61) 98 09/07/24 02:45 74 22 102/41 (61) 98 09/07/24 02:33 74 22 96/42 (60) 98 45 09/07/24 02:30 74 22 96/42 (60) 98 09/07/24 02:15 75 23 98/45 (62) 98 09/07/24 02:00 45 09/07/24 02:00 76 23 99/41 (60) 97 09/07/24 02:00 23 97 Mechanical Ventilator+ 45 45 09/07/24 02:00 76 09/07/24 01:45 78 24 95/46 (62) 97 09/07/24 01:30 79 22 102/48 (66) 97 09/07/24 01:15 82 23 111/52 (71) 98 09/07/24 01:00 86 25 116/56 (76) 97 09/07/24 00:45 93 25 132/80 (97) 96 09/07/24 00:30 99 30 154/83 (106) 94 09/07/24 00:15 116 41 89 09/07/24 00:08 117 40 152/90 (110) 92 45 09/07/24 00:00 45 09/07/24 00:00 32 95 Mechanical Ventilator+ 45 45 09/07/24 00:00 100 09/07/24 00:00 102.0 96 28 148/83 (104) 96 102.0 09/06/24 23:45 101 38 161/81 (107) 94 09/06/24 23:30 101 36 165/90 (115) 97 09/06/24 23:15 104 36 97 09/06/24 23:00 97 27 145/65 (91) 96 09/06/24 22:45 96 30 98 09/06/24 22:35 98 29 161/81 09/06/24 22:30 100 20 143/82 (102) 97 09/06/24 22:15 95 27 150/98 (115) 100 45 09/06/24 22:15 96 25 150/98 (115) 100 09/06/24 22:05 101 41 170/89 09/06/24 22:00 24 99 Mechanical Ventilator+ 45 45 09/06/24 22:00 108 24 170/89 (116) 99 09/06/24 22:00 45 09/06/24 22:00 108 09/06/24 21:45 112 22 175/96 (122) 97 09/06/24 21:30 101 31 158/123 (135) 98 09/06/24 21:15 92 31 156/90 (112) 100 09/06/24 21:00 92 24 142/87 (105) 100 09/06/24 20:45 94 31 151/82 (105) 100 09/06/24 20:30 100 30 100 09/06/24 20:15 90 29 143/87 (105) 100 09/06/24 20:07 92 33 146/82 (103) 99 45 09/06/24 20:00 99.9 93 32 146/82 (103) 98 99.9 09/06/24 20:00 92 23 99 Mechanical Ventilator+ 45 45 09/06/24 20:00 92 09/06/24 20:00 23 99 Mechanical Ventilator+ 45 45 09/06/24 20:00 45 09/06/24 19:45 97 26 149/90 (109) 98 09/06/24 19:30 101 33 150/82 (104) 97 09/06/24 19:24 90 26 127/74 100 45 09/06/24 19:15 85 23 98 09/06/24 19:00 87 28 130/76 (94) 97 09/06/24 18:50 90 26 127/74 (91) 100 45 Lab Test 09/07/24 18:19 09/07/24 12:49 09/07/24 12:10 09/07/24 07:58 Range/Units POC Glucose 133 H 116 H 70-106 mg/dl Stool pH Pending Stool Occult Blood Positive Negative Stool Occult Blood Sample #3 Negative Stool for White Cells Moderate Blood Gas Specimen Type Arterial Blood Gas Sample Site Left radial Blood Gas Patient Temperature 37.0 Arterial Blood Date Drawn [id number] Arterial Blood pH 7.334 L 7.350-7.450 Arterial Blood Partial Pressure CO2 44.5 32.0-45.0 mmHg Arterial Blood Partial Pressure O2 95.6 83.0-108.0 mmHg Arterial Blood HCO3 23.1 21.0-28.0 mmol/L Arterial Blood Oxygen Saturation 96.7 94.0-98.0 % Arterial Blood Base Excess -2.5 L -2.0-3.0 mmol/L Arterial Blood Oxyhemoglobin 94.4 94.0-98.0 % Arterial Blood Carboxyhemoglobin 2.1 H 0.5-1.5 % Arterial Blood Methemoglobin 0.3 0.0-1.5 % Homer Test Modified Blood Gas Total Hemoglobin 6.90 *L 12.0-16.0 g/dL Blood Gas Set Respiration Rate 22.0 Blood Gas Modality Vent - ac FiO2 % 45.0 Blood Gas Tidal Volume 450.0 Blood Gas PEEP or CPAP 5.0 Blood Gas Critical Value Read Back Yes Blood Gas Notified Whom Aleksandar smith Blood Gas Notified Time [id number] Blood Gas Notified By Nathan new car driver Test 09/07/24 05:44 09/07/24 03:13 09/07/24 00:32 Range/Units POC Glucose 112 H 101 70-106 mg/dl White Blood Count 7.2 4.4-10.8 10^3/uL Red Blood Count 2.45 L 4.0-5.20 10^6/uL Hemoglobin 7.4 #L 12.2-16.2 g/dL Hematocrit 22.6 #L 36.0-46.0 % Mean Corpuscular Volume 92.0 # 80.0-100.0 fL Mean Corpuscular Hemoglobin 30.3 28.0-32.0 pg Mean Corpuscular Hemoglobin Concent 33.0 32.0-36.0 g/dL Red Cell Distribution Width 14.5 H 11.8-14.3 % Platelet Count 127 L 140-450 10^3/uL Mean Platelet Volume 6.9 6.9-10.8 fL Neutrophils (%) (Auto) 74.6 37.0-80.0 % Lymphocytes (%) (Auto) 14.0 10.0-50.0 % Monocytes (%) (Auto) 7.1 0.0-12.0 % Eosinophils (%) (Auto) 3.8 0.0-7.0 % Basophils (%) (Auto) 0.5 0.0-2.0 % Neutrophils # (Auto) 5.3 1.6-8.6 10 ^3/uL Lymphocytes # (Auto) 1.0 0.4-5.4 10 ^3/uL Monocytes # (Auto) 0.5 0-1.3 10 ^3/uL Eosinophils # (Auto) 0.3 0-0.8 10 ^3/uL Basophils # (Auto) 0 0-0.2 10 ^3/uL Nucleated Red Blood Cells 0.0 % Sodium Level 141 136-145 mmol/L Potassium Level 4.5 3.5-5.1 mmol/L Chloride Level 107 98-107 mmol/L Carbon Dioxide Level 21 20-31 mmol/L Anion Gap 13 5-15 Blood Urea Nitrogen 20 9-23 mg/dL Creatinine 0.81 0.550-1.02 mg/dL Glomerular Filtration Rate Calc 99 >90 mL/min BUN/Creatinine Ratio 24.7 H 10.0-20.0 Serum Glucose 120 H 74-106 mg/dL Calcium Level 8.9 8.7-10.4 mg/dL Phosphorus Level 5.5 H 2.4-5.1 mg/dL Magnesium Level 2.1 1.6-2.6 mg/dL Total Bilirubin 0.6 0.2-1.0 mg/dL Aspartate Amino Transferase (AST) 33 13-40 U/L Alanine Aminotransferase (ALT) 21 7-40 U/L Alkaline Phosphatase 87 46-116 U/L Total Protein 5.5 L 5.7-8.2 g/dL Albumin 3.0 L 3.2-4.8 g/dL Triglycerides Level 280 H < 150 mg/dL Current Medications Medications (Trade) Dose Ordered Sig/Snow Route Start Time Stop Time Status Last Admin Sodium Chloride 20 meq/Potassium Acetate 40 meq/ Magnesium Sulfate 32 meq/ Multivitamins 10 ml/Chromium/ Copper/Manganese/ Zinc 1 ml/Amino Acids/Dextrose 1,144 ml @ 48 mls/hr [id number] IV 09/06/24 22:00 09/07/24 21:59 09/06/24 21:45 Cefepime HCl 50 ml @ 12.5 mls/hr Q8H IV 09/07/24 10:00 09/07/24 18:02 Acetylcysteine (Mucomyst Inahalation 10%) 100 mg Q6HR NEB 09/07/24 18:00 09/07/24 18:20 Albuterol (Ventolin Medneb) 2.5 mg Q6HR NEB 09/07/24 18:00 09/07/24 18:20 Imaging: CHEST RADIOGRAPH Indication: Pneumonia Technique: Single frontal view of the chest was obtained Comparison: XY CHEST XRAY 1 VIEW on DOS: 09/06/24, XY CHEST XRAY 1 VIEW on DOS: 09/05/24, XY CHEST XRAY 1 VIEW on DOS: 09/04/24 IMPRESSION: Low lung volumes. The heart remains prominent size. Bilateral interstitial and alveolar airspace opacities have worsened, no sizable pleural effusion or pneumothorax. Support lines and tubes appear unchanged in satisfactory in posit ion. Assessment: # anemia # history of acute abdomen with multiple abdominal surgery # pancreatitis thought to be due to hypertriglyceridemia #Respiratory failure # history of compartment syndrome No evidence of GI bleeding. Any may be secondary to hemodilution versus blood loss from surgery versus other. Consider other etiology Plan: 1. Dulcolax p.r.n.. Avoid Reglan. 2. Continue pain control 3. No findings to explain the patient's anemia at this time. Hold off on endoscopy and colonoscopy. 4. We will follow 5. Caution with anticoagulation or NSAIDs 6. Consider non GI sources of anemia OLIVIER ROWLEY MD Sep 07, 2024 18:51
[2024-09-07 19:01] LABS: Basophils # (auto) 0 10 ^3/uL (0-0.2); Basophils % (auto) 0.3 % (0.0-2.0); Eosinophils # (auto) 0.4 10 ^3/uL (0-0.8); Eosinophils % (auto) 5.5 % (0.0-7.0); Hematocrit 28.4 % (36.0-46.0); Hemoglobin 9.3 g/dL (12.2-16.2); Lymphocytes # (auto) 1.6 10 ^3/uL (0.4-5.4); Lymphocytes % (auto) 19.1 % (10.0-50.0); Mean Corpuscular Hemoglobin 29.1 pg (28.0-32.0); Mean Corpuscular Hgb Conc. 32.7 g/dL (32.0-36.0); Monocytes # (auto) 0.8 10 ^3/uL (0-1.3); Monocytes % (auto) 9.4 % (0.0-12.0); Neutrophils # (auto) 5.3 10 ^3/uL (1.6-8.6); Neutrophils % (auto) 65.7 % (37.0-80.0); Nucleated Red Blood Cells % 0.1 %; Platelet Count (auto) 272 10^3/uL (140-450); Red Cell Distribution Width 15.3 % (11.8-14.3); White Blood Cell 8.1 10^3/uL (4.4-10.8)
[2024-09-07] MEDS: TPN PER PHARMACY IV NR (21:06)
--- NOTE | 2024-09-07 23:44 | DVHPN2 ---
Progress Note - Dictate Date Seen: Sep 07, 2024 Has the PT tested + for MRSA If YES, has PT been informed?: Yes Medical Necessity Reason Pt with a Central, PICC or Fol: Yes The following are medically ne: Central Line, Gutierrez Catheter Reason for gutierrez catheter: Strict I&O Subjective Patient seen and examined at bedside. Sedated, intubated on mechanical ventilator. Overnight events reviewed. vital signs Vital Sign Date Time Temp Pulse Resp B/P (MAP) Pulse Ox O2 Delivery O2 Flow Rate FiO2 09/07/24 23:21 97/51 09/07/24 22:13 72 22 95 35 09/07/24 19:45 99.3 99.3 09/07/24 18:00 Mechanical Ventilator+ Total Intake and Output 09/06/24 09/06/24 09/07/24 15:00 23:00 07:00 Intake Total 1416.90 ml 1322.40 ml 1448.40 ml Output Total 3885 ml 3060 ml Balance 1416.90 ml -2562.60 ml -1611.60 ml medications Current Medications Medications Dose Ordered Sig/Snow Route Start Time Stop Time Status Last Admin Dose Admin Sodium Chloride 10 ml Q8HR IV 08/14/24 22:00 09/07/24 22:16 10 ML Ergocalciferol 50,000 unit Q7D PO 08/15/24 10:00 09/05/24 13:08 50,000 UNIT Acetaminophen 650 mg Q8HPRN PRN IN 08/17/24 04:15 09/06/24 13:05 650 MG Calcitriol 1 mcg EOD IV 08/17/24 10:00 09/06/24 10:00 1 MCG Norepinephrine Bitartrate 250 ml @ 3.75 mls/hr Q24H IV 08/17/24 09:30 08/19/24 11:29 7.5 MLS/HR Amino Acids 0 ml @ 0 mls/hr PER PHARMACY IV 08/19/24 14:45 Sodium Chloride 10 ml QSHIFT@10,22 IV 08/19/24 22:00 09/07/24 22:16 10 ML Insulin Human (Reg)/Sodium Chloride 100 ml 1945 IV 08/21/24 19:45 UNV Acetaminophen 1,000 mg Q6HPRN PRN IV 08/22/24 23:15 09/07/24 05:34 1,000 MG Hydralazine HCl 10 mg Q6HP PRN IV 08/25/24 17:30 09/01/24 00:19 10 MG Labetalol HCl 10 mg Q2HPRN PRN IV 08/26/24 17:00 09/02/24 11:02 10 MG Diagnostic Test (Pha) 1 strip Q6HR 08/28/24 12:00 09/07/24 18:00 1 STRIP Insulin Human Regular Q6HR SC 08/28/24 12:00 09/07/24 19:13 2 UNITS Dextrose 50 ml UD PRN IV 08/28/24 09:15 Artificial Tears 1 drop Q2HP PRN EACHEYE 08/29/24 12:45 09/05/24 18:29 1 DROP Diazepam 10 mg Q6HR PO 09/01/24 00:00 09/07/24 18:03 10 MG Bumetanide 1 mg BIDD IV 09/01/24 18:00 09/07/24 05:47 1 MG Propofol 100 ml @ 2.544 mls/ hr Q24H IV 09/02/24 13:30 09/07/24 22:40 25.44 MLS/HR Atorvastatin Calcium 40 mg HS PO 09/02/24 22:00 09/07/24 22:06 40 MG Labetalol HCl 250 mg/Sodium Chloride 250 ml @ 60 mls/hr Q4H10M IV 09/02/24 20:00 Rocuronium [place] 50 mg Q6HP PRN IV 09/03/24 11:45 09/06/24 21:32 50 MG Midazolam HCl 50 ml @ 1 mls/hr Q24H IV 09/03/24 13:00 09/07/24 22:41 25 MLS/HR Linezolid 300 ml @ 150 mls/hr Q12H IV 09/03/24 20:00 09/07/24 21:01 150 MLS/HR Dexmedetomidine HCl 400 mcg/ Dextrose 100 ml @ 3.96 mls/hr Q24H IV 09/04/24 13:45 09/07/24 22:40 13.86 MLS/HR Ketorolac Tromethamine 15 mg Q6HR IV 09/04/24 18:00 09/09/24 17:59 09/07/24 18:03 15 MG Fentanyl Citrate 250 ml @ 2.5 mls/hr Q24H IV 09/04/24 16:30 09/07/24 23:21 55 MLS/HR Pantoprazole Sodium 40 mg BID IV 09/05/24 13:45 09/07/24 22:06 40 MG Potassium Chloride 100 ml @ 50 mls/hr DAILY IV 09/06/24 10:00 09/09/24 22:50 09/07/24 08:32 50 MLS/HR Hydromorphone HCl 1.5 mg Q6HR PRN IV 09/06/24 15:30 09/06/24 22:05 1.5 MG Cefepime HCl 50 ml @ 12.5 mls/hr Q8H IV 09/07/24 10:00 09/07/24 18:02 12.5 MLS/HR Sodium Acetate 20 meq/Potassium Acetate 20 meq/ Magnesium Sulfate 30 meq/ Multivitamins 10 ml/Chromium/ Copper/Manganese/ Zinc 1 ml/Amino Acids/Dextrose 1,088.5 ml @ 45 mls/hr [id number] IV 09/07/24 22:00 09/08/24 21:59 09/07/24 21:06 45 MLS/HR Acetylcysteine 100 mg Q6HR NEB 09/07/24 18:00 09/07/24 18:20 100 MG Albuterol 2.5 mg Q6HR NEB 09/07/24 18:00 09/07/24 18:20 2.5 MG objective Gen.: Patient lying in bed in medical ICU. Sedated, intubated on mechanical ventilator. Head: Normocephalic, atraumatic. Eyes: PERRLA. Ears: Normal external anatomy. Throat: Endotracheal tube and orogastric tube in place. Neck: Supple, trachea midline. Chest: Transmitted breath sounds bilaterally. Decreased air entry bilaterally. No wheezing. Bibasilar crackles. Cardiovascular: Positive S1, positive S2. Regular rate and rhythm. Abdomen: Positive bowel sounds in all 4 quadrants. Soft, nontender, nondistended. : Gutierrez in place. Normal external genitalia. Rectal: Deferred. Skin: Warm, dry. Intact. Extremities: 2+ radial pulses bilaterally. No lower extremity edema. Neuro: Sedated. laboratory and microbiology Laboratory Tests 09/07/24 18:49 09/07/24 03:13 Test 09/07/24 03:13 Range/Units Serum Glucose 120 H 74-106 mg/dL Assessment/Plan Impression: Acute hypoxic respiratory failure On mechanical ventilator Hypertriglyceridemia induced acute pancreatitis Hypocalcemia Hypophosphatemia Peritonitis Acute abdomen Ascites Hyponatremia due to hypotonic IV fluid Vitamin-D deficiency Hypomagnesemia Hyperparathyroidism immune Muslim diffuse plasmapheresis Lactic acidosis, improving Events: Remains on vent support On assist control mode with respiratory rate of 22, tidal volume 450, PEEP of 5, FiO2 of 45%. Interval increase in O2 requirements. Continue abx - linezolid/cefepime BAL cultures grew Dariana albicans. Sedated on Propofol/Versed On Precedex drip. ABG reviewed, compensated. Monitor hemoglobin. Surgery recommendations appreciated. Potassium supplementation Monitor renal function. Hydralazine 10 mg q.6 hours PRN SBP >160 mmHg TPN for nutritional support IV fluids with D5-NS. Wound care Diurese w/ Bumex as tolerated Monitor renal function Labs and imaging reviewed. Rest of plan as noted below. Plan: s/p intubation on mechanical ventilator On assist control mode with respiratory rate of 22, tidal volume 450, PEEP of 5, FiO2 of 45%. Titrate FIO2 to keep O2 saturation above 92%. VAP bundle Daily ABG and CXR while intubated. Sedate for ventilatory synchrony. Start pressors for hemodynamic support if necessary. Keep MAP above 65 mmHg/SBP above 90 mmHg. Continue broad spectrum antibiotics. F/u cultures. Monitor renal function due to Acute kidney injury. Monitor electrolytes. Supplement as necessary. Received calcium gluconate Potassium, calcium and magnesium were supplemented. Continue IV fluids Accu-cheks, on insulin drip. Abdomen was severely distended. Limited ultrasound of the abdomen revealed no pocket amenable for paracentesis. Recommended for RN to check bladder pressure every 6 hours. Currently it was 16 mmHg. Surgery recommendations appreciated - we will consider emergent surgery if abdominal pressures exceeding 25 mmHg. Patient s/p surgical procedure to decompress abdomen on 08/26. GI/DVT prophylaxis. Condition: Critical Prognosis: Poor given multiple comorbidities. Rest of plan per hospitalist and other consultants. A total of 35 minutes of critical care time was spent reviewing the patient record, examining the patient, making a diagnostic and therapeutic plan, discussing this plan with the medical personnel, following up on diagnostic studies and following the patient for clinical stability excluding any and all procedures. At least 50% of this time was spent in direct, [id number] contact. Thank you Dr. Bedolla for allowing me to participate in this patient's care. Further recommendations will depend on patient's clinical course. Please do not hesitate to contact me if you have any questions or concerns. This medical document was created using an electronic medical record system with [employer] dictation system. Although this document has been carefully reviewed, there may still be some phonetic and typographical errors. These areas are purely typographical due to imperfections of the software programs, and do not reflect any compromise in the patient's medical care. Dietary Evaluation Review Comments: 1) Increase TPN to meet at least 75% of estimated needs 2) Advance pt diet when medically feasible to a Low Fat diet 3) Continue current plan of care Expected Outcomes/Goals: 1) Pt diet to advance 2) Pt labs to improve 3) F/U in 2-3 days Plan discussed with: Other (ANDRES Downey) Critical Care Time(min): 35 JUDE REN MD Sep 07, 2024 23:44
[2024-09-08] VITALS (107 sets, daily range): BP systolic 92–156; BP diastolic 47–86; PULSE 67–106; RESP 17–33; TEMP 97.3–100.9; O2SAT 10–100
[2024-09-08 04:05] LABS: Hematocrit 24.7 % (36.0-46.0); Hemoglobin 8.3 g/dL (12.2-16.2); Lymphocytes # (auto) 1.3 10 ^3/uL (0.4-5.4); Mean Corpuscular Hgb Conc. 33.6 g/dL (32.0-36.0); Monocytes # (auto) 0.6 10 ^3/uL (0-1.3); Neutrophils # (auto) 4.6 10 ^3/uL (1.6-8.6)
[2024-09-08 04:08] LABS: Basophils # (auto) 0.1 10 ^3/uL (0-0.2); Eosinophils # (auto) 0.4 10 ^3/uL (0-0.8); Eosinophils % (auto) 6.3 % (0.0-7.0); Lymphocytes % (auto) 18.4 % (10.0-50.0); Mean Corpuscular Volume 89.2 fL (80.0-100.0); Monocytes % (auto) 8.5 % (0.0-12.0); Neutrophils % (auto) 65.8 % (37.0-80.0); Nucleated Red Blood Cells % 0.1 %; Platelet Count (auto) 263 10^3/uL (140-450); Red Blood Cells 2.78 10^6/uL (4.0-5.20); Red Cell Distribution Width 15.3 % (11.8-14.3)
[2024-09-08 04:27] LABS: Alanine Aminotransferase 17 U/L (7-40); Alkaline Phosphatase 87 U/L (46-116); Anion Gap 11 (5-15); Aspartate Aminotransferase 20 U/L (13-40); BUN/Creatinine Ratio 32.3 (10.0-20.0); Calcium 9.2 mg/dL (8.7-10.4); Chloride 107 mmol/L (98-107); Magnesium 2.5 mg/dL (1.6-2.6); Potassium 4.2 mmol/L (3.5-5.1); Sodium 138 mmol/L (136-145)
[2024-09-08 04:28] LABS: Bilirubin, Total 0.6 mg/dL (0.2-1.0); Total Protein 5.8 g/dL (5.7-8.2)
[2024-09-08 04:33] LABS: Albumin 3.1 g/dL (3.2-4.8); Blood Urea Nitrogen 30 mg/dL (9-23); Carbon Dioxide 20 mmol/L (20-31); Glucose 119 mg/dL (74-106); Phosphorus 6.5 mg/dL (2.4-5.1)
--- NOTE | 2024-09-08 06:46 | DVHPN2 ---
Subjective Continue to be intubated and sedated with stable hemoglobin; stool culture came back positive for Campylobacter so EKG was ordered for QTc interval Reviewed: Care Plan, H&P, Labs, Medications, Previous Orders, Radiology, Other (Consultations) Changes from previous H/P or p: Changes Objective Vitals Vital Signs Date Time Temp Pulse Resp B/P (MAP) Pulse Ox O2 Delivery O2 Flow Rate FiO2 09/08/24 05:59 99/51 09/08/24 05:56 69 22 96 35 09/08/24 04:00 Mechanical Ventilator+ 09/08/24 02:00 98.2 98.2 Intake/Output Intake and Output 09/08/24 07:00 Intake Total 5317.79 ml Output Total 935 ml Balance 4382.79 ml Intake Oral 0 ml IV Total 5017.79 ml Blood Product 300 ml Other 0 ml Output Urine Total 500 ml Gastric Drainage Total 225 ml Other 210 ml General Appearance: Other (Intubated and sedated) HEENT: Atraumatic Lungs: Other (Mechanical ventilation sounds) Cardiovascular: Regular rate, Normal S1, Normal S2 Abdomen: Other (Serosanguineous fluid in SOLIS drains; hypoactive bowel sounds) Genitourinary: Other (Sparrow's) Neuro: Other (Intubated and sedated) Psych/Mental Status: Other (Intubated and sedated) Medications Current Medications Medications Dose Ordered Sig/Snow Route Start Time Stop Time Status Last Admin Dose Admin Sodium Chloride 10 ml Q8HR IV 08/14/24 22:00 09/08/24 05:55 10 ML Ergocalciferol 50,000 unit Q7D PO 08/15/24 10:00 09/05/24 13:08 50,000 UNIT Acetaminophen 650 mg Q8HPRN PRN IA 08/17/24 04:15 09/06/24 13:05 650 MG Calcitriol 1 mcg EOD IV 08/17/24 10:00 09/06/24 10:00 1 MCG Norepinephrine Bitartrate 250 ml @ 3.75 mls/hr Q24H IV 08/17/24 09:30 08/19/24 11:29 7.5 MLS/HR Amino Acids 0 ml @ 0 mls/hr PER PHARMACY IV 08/19/24 14:45 Sodium Chloride 10 ml QSHIFT@ IV 08/19/24 22:00 09/07/24 22:16 10 ML Insulin Human (Reg)/Sodium Chloride 100 ml 1945 IV 08/21/24 19:45 UNV Acetaminophen 1,000 mg Q6HPRN PRN IV 08/22/24 23:15 09/07/24 05:34 1,000 MG Hydralazine HCl 10 mg Q6HP PRN IV 08/25/24 17:30 09/01/24 00:19 10 MG Labetalol HCl 10 mg Q2HPRN PRN IV 08/26/24 17:00 09/02/24 11:02 10 MG Diagnostic Test (Pha) 1 strip Q6HR 08/28/24 12:00 09/08/24 06:01 1 STRIP Insulin Human Regular Q6HR SC 08/28/24 12:00 09/07/24 19:13 2 UNITS Dextrose 50 ml UD PRN IV 08/28/24 09:15 Artificial Tears 1 drop Q2HP PRN EACHEYE 08/29/24 12:45 09/05/24 18:29 1 DROP Diazepam 10 mg Q6HR PO 09/01/24 00:00 09/08/24 06:00 10 MG Bumetanide 1 mg BIDD IV 09/01/24 18:00 09/08/24 05:59 1 MG Propofol 100 ml @ 2.544 mls/ hr Q24H IV 09/02/24 13:30 09/08/24 02:18 25.44 MLS/HR Atorvastatin Calcium 40 mg HS PO 09/02/24 22:00 09/07/24 22:06 40 MG Labetalol HCl 250 mg/Sodium Chloride 250 ml @ 60 mls/hr Q4H10M IV 09/02/24 20:00 Rocuronium [place] 50 mg Q6HP PRN IV 09/03/24 11:45 09/06/24 21:32 50 MG Midazolam HCl 50 ml @ 1 mls/hr Q24H IV 09/03/24 13:00 09/08/24 05:56 25 MLS/HR Linezolid 300 ml @ 150 mls/hr Q12H IV 09/03/24 20:00 09/07/24 21:01 150 MLS/HR Dexmedetomidine HCl 400 mcg/ Dextrose 100 ml @ 3.96 mls/hr Q24H IV 09/04/24 13:45 09/07/24 22:40 13.86 MLS/HR Ketorolac Tromethamine 15 mg Q6HR IV 09/04/24 18:00 09/09/24 17:59 09/08/24 05:55 15 MG Fentanyl Citrate 250 ml @ 2.5 mls/hr Q24H IV 09/04/24 16:30 09/08/24 03:00 5.5 MLS/HR Pantoprazole Sodium 40 mg BID IV 09/05/24 13:45 09/07/24 22:06 40 MG Potassium Chloride 100 ml @ 50 mls/hr DAILY IV 09/06/24 10:00 09/09/24 22:50 09/07/24 08:32 50 MLS/HR Hydromorphone HCl 1.5 mg Q6HR PRN IV 09/06/24 15:30 09/06/24 22:05 1.5 MG Cefepime HCl 50 ml @ 12.5 mls/hr Q8H IV 09/07/24 10:00 09/08/24 02:15 12.5 MLS/HR Sodium Acetate 20 meq/Potassium Acetate 20 meq/ Magnesium Sulfate 30 meq/ Multivitamins 10 ml/Chromium/ Copper/Manganese/ Zinc 1 ml/Amino Acids/Dextrose 1,088.5 ml @ 45 mls/hr [id number] IV 09/07/24 22:00 09/08/24 21:59 09/07/24 21:06 45 MLS/HR Acetylcysteine 100 mg Q6HR NEB 09/07/24 18:00 09/08/24 05:56 100 MG Albuterol 2.5 mg Q6HR NEB 09/07/24 18:00 09/08/24 05:56 2.5 MG Laboratory Results Laboratory Tests 09/08/24 03:12 Chemistry Test 09/08/24 03:12 Albumin 3.1 g/dL (3.2-4.8) L Calcium Level 9.2 mg/dL (8.7-10.4) Magnesium Level 2.5 mg/dL (1.6-2.6) Phosphorus Level 6.5 mg/dL (2.4-5.1) H Total Protein 5.8 g/dL (5.7-8.2) LFT Test 09/08/24 03:12 Alanine Aminotransferase (ALT) 17 U/L (7-40) Alkaline Phosphatase 87 U/L (46-116) Aspartate Amino Transferase (AST) 20 U/L (13-40) Total Bilirubin 0.6 mg/dL (0.2-1.0) Urinalysis Test 08/14/24 12:07 08/16/24 12:55 Urine Color Colorless (Yellow) Urine Clarity Clear (Clear) Urine pH 5.5 (5.0-9.0) Urine Specific [place] 1.013 (1.001-1.035) Urine Protein Negative (Negative) Urine Ketones Negative (Negative) Urine Blood 1+ /uL (Negative) H Urine Nitrite Negative (Negative) Urine Bilirubin Negative (Negative) Urine Urobilinogen Normal mg/dL (Negative) Urine Leukocyte Esterase Negative /uL (Negative) Urine RBC 3 /hpf (0 - 4) Urine WBC <1 /hpf (0 - 5) Urine Squamous Epithelial Cells Few /hpf (<5) Urine Bacteria Few /hpf (None Seen) H Urine Glucose Normal mg/dL (Normal) Urine Creatinine 242.96 mg/dL (30.0-125.0) H Urine Protein/Creatinine Ratio 1.09 Urine Sodium 13 mmol/L (40-220) L Urine Total Protein 265.4 mg/dL (1-14) H Blood Gas Results Test 09/07/24 07:58 Arterial Blood pH 7.334 (7.350-7.450) FiO2 % 45.0 Microbiology Microbiology Date/Time Source Procedure Growth Status 09/04/24 11:21 Bronchial Washings Gram Stain - Final Resulted 09/04/24 11:21 Respiratory Culture - Preliminary Presumptive Dariana albicans Resulted 09/02/24 18:49 Voided Urine Urine Culture - Final Complete 09/02/24 15:58 Blood Blood Culture - Final NO GROWTH AFTER 5 DAYS OF INCUBATION. Complete 08/15/24 13:32 Nose MRSA Screen - Final Complete Labs and/or images reviewed: Labs reviewed by me, Image(s) reviewed by me Assessment/Plan Assessment/Plan Covering Dr. Bang/Dr. Albert: #Campylobacter gastroenteritis; new diagnosis after stool cultures/studies results; EKG was done for QTc interval that was below 415 millisecond; started on azithromycin #Acute metabolic encephalopathy, likely due to pancreatitis leading to abdominal compartment syndrome and respiratory failure #Septic shock due to complicated pancreatitis with abdominal infection #Acute hypercapnic/hypoxic respiratory failure due to hypertriglyceridemia induced pancreatitis leading to abdominal compartment syndrome and respiratory failure/pneumonia #Pneumonia likely due to Gram-negative Gram-positive bacteria #Abdominal compartment syndrome, status post decompression #Status post decompressive laparotomy on 08/18/2024 #Re-exploratory irrigation of abdomen on 08/20/2024 #Electrolytes imbalance #Severe anemia, likely due to intra-abdominal bleeding; status post 8 units of packed RBCs #Familiar hypertriglyceridemia Reviewed available imaging studies including chest x-rays and abdomen/pelvis CTs Reviewed available lab studies including ABGs Reviewed consultations teams recommendations Continue oxygen therapy via mechanical ventilation as indicated Continue IV pressors and IV antibiotics as indicated Continue diuretic infusion as indicated Continue statin as indicated Avoid nephrotoxic/hepatotoxic agents Replace electrolytes as indicated Continue close monitoring 66 minutes of critical care time Late Entry This medical document was created using an electronic medical record system with computerized dictation system. Although this document has been carefully reviewed, there might still be some phonetic and typographical errors. These areas are purely typographical due to imperfections of the software programs, and do not reflect any compromise in the patient's medical care. Plan discussed with: Other (Patient's father; nurse) My Orders Orders - EDIS BEDOYA MD Procedure Category Date Status Time Abg W/ Co-Ox RT 09/08/24 Logged 06:00 Acetylcysteine PHA 09/07/24 In Process Inhalation 10% 18:00 Albuterol Medneb PHA 09/07/24 In Process (Ventolin Medneb) 18:00 Stool Bacterial HEIDE 09/07/24 In Process Culture 12:12 Cpap Trial For Am ORDERS 09/07/24 Transmitted 13:16 Chest Portable XY 09/08/24 Taken 07:00 Complete Blood Count LAB 09/09/24 Verified 04:00 Comprehensive LAB 09/09/24 Verified Metabolic Panel 04:00 Magnesium LAB 09/09/24 Verified 04:00 1 View Decubitus XY 09/09/24 Logged Chest Xray 07:00 Abg W/ Co-Ox RT 09/09/24 Logged 06:00 Date of Service: Sep 08, 2024 Billing Provider: EDIS BEDOYA MD Common Visit Codes: 07990-[id number] CARE 30-74 MIN (66 minutes) EDIS BEDOYA MD Sep 08, 2024 06:46
--- NOTE | 2024-09-08 07:57 | DVH ---
CLINICAL INFORMATION: 34 years old, Female; Intubated. TECHNIQUE: Single AP portable chest radiograph was obtained. COMPARISON: XY CHEST XRAY 1 VIEW on DOS: 09/07/24, XY CHEST XRAY 1 VIEW on DOS: 09/06/24, XY CHEST XR AY 1 VIEW on DOS: 09/05/24 FINDINGS: Stable satisfactory positioning of the endotracheal tube, enteric tube, right internal jugular centra l venous catheter, and right PICC. Bilateral airspace opacities and interstitial opacities are stable . Low lung volumes. No other significant interval change. IMPRESSION: No significant interval change as detailed above.
[2024-09-08 08:30] LABS: Base Excess -4.7 mmol/L (-2.0-3.0)
[2024-09-08] MEDS: diazePAM 2 MG TAB ONE (09:07)
--- NOTE | 2024-09-08 11:13 | ECG ---
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
[2024-09-08 11:53] LABS: Base Excess -5.6 mmol/L (-2.0-3.0)
[2024-09-08] MEDS ORDERED: KETOROLAC TROMETH 60MG/2ML VIAL IM PRN (12:15)
[2024-09-08] MEDS: KETOROLAC TROMETH 60MG/2ML VIAL IV SCH (12:25)
[2024-09-08] MEDS ORDERED: KETOROLAC TROMETH 60MG/2ML VIAL IV PRN (12:30)
[2024-09-08] MEDS: HALOPERIDOL LACTATE 5 MG/ML INJ VIAL ONE (12:59)
[2024-09-08] MEDS: AZITHROMYCIN 500MG/ 250ML 250 ML IV ONE (16:34)
[2024-09-08] MEDS: TPN PER PHARMACY IV NR (19:45)
[2024-09-08] MEDS: CEFEPIME 2GM/50ML NS 50 ML IV SCH (22:26)
--- NOTE | 2024-09-08 23:05 | DVHPN2 ---
Progress Note - Dictate Date Seen: Sep 08, 2024 Has the PT tested + for MRSA If YES, has PT been informed?: Yes Medical Necessity Reason Pt with a Central, PICC or Fol: Yes The following are medically ne: Central Line, Gutierrez Catheter Reason for gutierrez catheter: Strict I&O Subjective Patient seen and examined at bedside. Sedated, intubated on mechanical ventilator. Overnight events reviewed. vital signs Vital Sign Date Time Temp Pulse Resp B/P (MAP) Pulse Ox O2 Delivery O2 Flow Rate FiO2 09/08/24 21:55 76 22 113/68 (83) 95 35 09/08/24 21:00 98.4 98.4 09/08/24 20:00 Mechanical Ventilator+ Total Intake and Output 09/07/24 09/07/24 09/08/24 15:00 23:00 07:00 Intake Total 2362.12 ml 1944.90 ml 1603.65 ml Output Total 935 ml 1990 ml Balance 2362.12 ml 1009.90 ml -386.35 ml medications Current Medications Medications Dose Ordered Sig/Snow Route Start Time Stop Time Status Last Admin Dose Admin Sodium Chloride 10 ml Q8HR IV 08/14/24 22:00 09/08/24 22:26 10 ML Ergocalciferol 50,000 unit Q7D PO 08/15/24 10:00 09/05/24 13:08 50,000 UNIT Acetaminophen 650 mg Q8HPRN PRN AR 08/17/24 04:15 09/06/24 13:05 650 MG Calcitriol 1 mcg EOD IV 08/17/24 10:00 09/08/24 09:19 1 MCG Norepinephrine Bitartrate 250 ml @ 3.75 mls/hr Q24H IV 08/17/24 09:30 08/19/24 11:29 7.5 MLS/HR Amino Acids 0 ml @ 0 mls/hr PER PHARMACY IV 08/19/24 14:45 Sodium Chloride 10 ml QSHIFT@10,22 IV 08/19/24 22:00 09/08/24 22:26 10 ML Insulin Human (Reg)/Sodium Chloride 100 ml 1945 IV 08/21/24 19:45 UNV Acetaminophen 1,000 mg Q6HPRN PRN IV 08/22/24 23:15 09/08/24 13:26 1,000 MG Hydralazine HCl 10 mg Q6HP PRN IV 08/25/24 17:30 09/01/24 00:19 10 MG Labetalol HCl 10 mg Q2HPRN PRN IV 08/26/24 17:00 09/02/24 11:02 10 MG Diagnostic Test (Pha) 1 strip Q6HR 08/28/24 12:00 09/08/24 17:55 1 STRIP Insulin Human Regular Q6HR SC 08/28/24 12:00 09/08/24 18:19 2 UNITS Dextrose 50 ml UD PRN IV 08/28/24 09:15 Artificial Tears 1 drop Q2HP PRN EACHEYE 08/29/24 12:45 09/05/24 18:29 1 DROP Diazepam 10 mg Q6HR PO 09/01/24 00:00 09/08/24 11:58 10 MG Bumetanide 1 mg BIDD IV 09/01/24 18:00 09/08/24 17:45 1 MG Propofol 100 ml @ 2.544 mls/ hr Q24H IV 09/02/24 13:30 09/08/24 22:39 25.44 MLS/HR Atorvastatin Calcium 40 mg HS PO 09/02/24 22:00 09/08/24 22:26 40 MG Labetalol HCl 250 mg/Sodium Chloride 250 ml @ 60 mls/hr Q4H10M IV 09/02/24 20:00 Rocuronium [place] 50 mg Q6HP PRN IV 09/03/24 11:45 09/06/24 21:32 50 MG Midazolam HCl 50 ml @ 1 mls/hr Q24H IV 09/03/24 13:00 09/08/24 21:27 25 MLS/HR Linezolid 300 ml @ 150 mls/hr Q12H IV 09/03/24 20:00 09/08/24 20:00 150 MLS/HR Dexmedetomidine HCl 400 mcg/ Dextrose 100 ml @ 3.96 mls/hr Q24H IV 09/04/24 13:45 09/08/24 18:37 13.86 MLS/HR Fentanyl Citrate 250 ml @ 2.5 mls/hr Q24H IV 09/04/24 16:30 09/08/24 21:12 55 MLS/HR Pantoprazole Sodium 40 mg BID IV 09/05/24 13:45 121/24 22:26 40 MG Potassium Chloride 100 ml @ 50 mls/hr DAILY IV 09/06/24 10:00 09/09/24 22:50 09/08/24 08:59 50 MLS/HR Acetylcysteine 100 mg Q6HR NEB 09/07/24 18:00 09/08/24 18:11 100 MG Albuterol 2.5 mg Q6HR NEB 09/07/24 18:00 09/08/24 18:10 2.5 MG Hydromorphone HCl 2 mg Q6HPRN PRN IV 09/08/24 10:45 Ketorolac Tromethamine 15 mg Q6HP IV 09/08/24 12:30 09/09/24 12:29 09/08/24 12:25 15 MG Haloperidol Lactate 5 mg Q6HP PRN IV 09/08/24 12:45 Sodium Acetate 40 meq/Potassium Acetate 30 meq/ Magnesium Sulfate 12 meq/ Multivitamins 10 ml/Chromium/ Copper/Manganese/ Zinc 1 ml/Amino Acids/Dextrose 1,049 ml @ 44 mls/hr [id number] IV 09/08/24 22:00 09/09/24 21:59 09/08/24 19:45 44 MLS/HR Azithromycin 250 ml @ 125 mls/hr DAILY IV 09/09/24 10:00 Cefepime HCl 50 ml @ 12.5 mls/hr Q8H IV 09/08/24 21:00 09/08/24 22:26 12.5 MLS/HR objective Gen.: Patient lying in bed in medical ICU. Sedated, intubated on mechanical ventilator. Head: Normocephalic, atraumatic. Eyes: PERRLA. Ears: Normal external anatomy. Throat: Endotracheal tube and orogastric tube in place. Neck: Supple, trachea midline. Chest: Transmitted breath sounds bilaterally. Decreased air entry bilaterally. No wheezing. Bibasilar crackles. Cardiovascular: Positive S1, positive S2. Regular rate and rhythm. Abdomen: Positive bowel sounds in all 4 quadrants. Soft, nontender, nondistended. : Gutierrez in place. Normal external genitalia. Rectal: Deferred. Skin: Warm, dry. Intact. Extremities: 2+ radial pulses bilaterally. No lower extremity edema. Neuro: Sedated. laboratory and microbiology Laboratory Tests 09/08/24 03:12 Test 09/08/24 03:12 Range/Units Serum Glucose 119 H 74-106 mg/dL Assessment/Plan Impression: Acute hypoxic respiratory failure On mechanical ventilator Hypertriglyceridemia induced acute pancreatitis Hypocalcemia Hypophosphatemia Peritonitis Acute abdomen Ascites Hyponatremia due to hypotonic IV fluid Vitamin-D deficiency Hypomagnesemia Hyperparathyroidism immune Advent diffuse plasmapheresis Lactic acidosis, improving Events: Remains on vent support On assist control mode with respiratory rate of 22, tidal volume 450, PEEP of 5, FiO2 of 45%. Continue abx - linezolid/cefepime/azithromycin Sedated on Propofol/Versed/Fentanyl On Precedex drip. ABG reviewed, notable for acidemia. Monitor hemoglobin. Surgery recommendations appreciated. Potassium supplementation Monitor renal function. TPN for nutritional support IV fluids with D5-NS. Wound care Diurese w/ Bumex as tolerated Monitor renal function Haldol PRN Patient got agitated. Recommend trach. Family meeting will be held for discussion on goals of care. Labs and imaging reviewed. Rest of plan as noted below. Plan: s/p intubation on mechanical ventilator On assist control mode with respiratory rate of 22, tidal volume 450, PEEP of 5, FiO2 of 45%. Titrate FIO2 to keep O2 saturation above 92%. VAP bundle Daily ABG and CXR while intubated. Sedate for ventilatory synchrony. Start pressors for hemodynamic support if necessary. Keep MAP above 65 mmHg/SBP above 90 mmHg. Continue broad spectrum antibiotics. F/u cultures. Monitor renal function due to Acute kidney injury. Monitor electrolytes. Supplement as necessary. Received calcium gluconate Potassium, calcium and magnesium were supplemented. Continue IV fluids Accu-cheks, on insulin drip. Abdomen was severely distended. Limited ultrasound of the abdomen revealed no pocket amenable for paracentesis. Recommended for RN to check bladder pressure every 6 hours. Currently it was 16 mmHg. Surgery recommendations appreciated - we will consider emergent surgery if abdominal pressures exceeding 25 mmHg. Patient s/p surgical procedure to decompress abdomen on 08/26. GI/DVT prophylaxis. Condition: Critical Prognosis: Poor given multiple comorbidities. Rest of plan per hospitalist and other consultants. A total of 35 minutes of critical care time was spent reviewing the patient record, examining the patient, making a diagnostic and therapeutic plan, discussing this plan with the medical personnel, following up on diagnostic studies and following the patient for clinical stability excluding any and all procedures. At least 50% of this time was spent in direct, [id number] contact. Thank you Dr. Bedolla for allowing me to participate in this patient's care. Further recommendations will depend on patient's clinical course. Please do not hesitate to contact me if you have any questions or concerns. This medical document was created using an electronic medical record system with [employer] dictation system. Although this document has been carefully reviewed, there may still be some phonetic and typographical errors. These areas are purely typographical due to imperfections of the software programs, and do not reflect any compromise in the patient's medical care. Dietary Evaluation Review Comments: 1) Increase TPN to meet at least 75% of estimated needs 2) Advance pt diet when medically feasible to a Low Fat diet 3) Continue current plan of care Expected Outcomes/Goals: 1) Pt diet to advance 2) Pt labs to improve 3) F/U in 2-3 days Plan discussed with: Other (ANDRES Childs) Critical Care Time(min): 35 JUDE REN MD Sep 08, 2024 23:05
[2024-09-09] VITALS (99 sets, daily range): BP systolic 92–171; BP diastolic 36–103; PULSE 69–132; RESP 17–35; TEMP 97–101.7; O2SAT 93–100
[2024-09-09 03:57] LABS: Hematocrit 24.7 % (36.0-46.0); Hemoglobin 8.5 g/dL (12.2-16.2); Mean Corpuscular Hemoglobin 30.1 pg (28.0-32.0); Mean Corpuscular Hgb Conc. 34.6 g/dL (32.0-36.0); Mean Corpuscular Volume 86.9 fL (80.0-100.0); Platelet Count (auto) 299 10^3/uL (140-450); Red Blood Cells 2.84 10^6/uL (4.0-5.20); Red Cell Distribution Width 15.1 % (11.8-14.3); White Blood Cell 5.2 10^3/uL (4.4-10.8)
[2024-09-09 04:15] LABS: Alanine Aminotransferase 16 U/L (7-40); Albumin 3.2 g/dL (3.2-4.8); Alkaline Phosphatase 83 U/L (46-116); Anion Gap 12 (5-15); Aspartate Aminotransferase 19 U/L (13-40); BUN/Creatinine Ratio 35.1 (10.0-20.0); Calcium 9.5 mg/dL (8.7-10.4); Carbon Dioxide 22 mmol/L (20-31); Potassium 4.3 mmol/L (3.5-5.1); Sodium 143 mmol/L (136-145)
[2024-09-09 04:16] LABS: Bilirubin, Total 0.4 mg/dL (0.2-1.0); Total Protein 6.1 g/dL (5.7-8.2)
[2024-09-09 04:17] LABS: Basophils % (manual) 0 (0.0-2.0); Blast Cells 0; Metamyelocytes % 0; Myelocytes % 0; Promyelocytes % 0; Reactive Lymphocytes 0
[2024-09-09 04:25] LABS: Blood Urea Nitrogen 27 mg/dL (9-23); Chloride 109 mmol/L (98-107); Glucose 118 mg/dL (74-106); Phosphorus 6.2 mg/dL (2.4-5.1)
--- NOTE | 2024-09-09 04:35 | DVH ---
CHEST RADIOGRAPH Indication: Intubated. Thank You! Technique: Single frontal view of the chest was obtained COMPARISON: XY CHEST PORTABLE on DOS: 09/08/24, XY CHEST XRAY 1 VIEW on DOS: 09/07/24, XY CHEST XRAY 1 VIEW on DOS: 09/06/24 FINDINGS: Lines and Tubes: Endotracheal tube, enteric catheter and right central venous catheter and right PICC in satisfactory position. Lungs: Multifocal airspace disease. Pleura: No effusion. No pneumothorax. Cardiomediastinal contours: Unremarkable Bones: Unremarkable IMPRESSION: Lines and tubes in satisfactory position. No significant interval change.
[2024-09-09 06:33] LABS: Band Neutrophils % (manual) 1; Eosinophils % (manual) 7 (0-7); Lymphocytes % (manual) 19 (10.0-50.0); Monocytes % (manual) 7 (0-12); Platelet Estimate Adequate
[2024-09-09 07:23] LABS: Base Excess -1.8 mmol/L (-2.0-3.0)
[2024-09-09] MEDS: AZITHROMYCIN 500MG/ 250ML 250 ML IV SCH (08:45)
[2024-09-09] MEDS: HALOPERIDOL LACTATE 5 MG/ML INJ VIAL IV PRN ×2 (09:55→17:58)
[2024-09-09] MEDS: HYDROmorphone HCL 2 MG/ML VL/or syr IV PRN (10:04)
[2024-09-09] MEDS: HALOPERIDOL LACTATE 5 MG/ML INJ VIAL ONE (13:54)
[2024-09-09] MEDS: PROPOFOL 100 ML IV ONE (14:51)
[2024-09-09] MEDS: ROCURONIUM BROMIDE 1,000 MG in D5W 5% 150 ML IV SCH (16:19)
[2024-09-09] MEDS: PROPOFOL 100 ML IV SCH (16:36)
[2024-09-09] MEDS: TPN PER PHARMACY IV NR (21:20)
--- NOTE | 2024-09-09 21:44 | DVHPNRES ---
Progress Note Date Seen: Sep 10, 2024 Resident Creating Document: BOZENA TRENT GEOVANNA Has the PT tested + for MRSA If YES, has PT been informed?: Yes Medical Necessity Reason Pt with a Central, PICC or Fol: Yes The following are medically ne: Central Line, Gutierrez Catheter Reason for gutierrez catheter: Strict I&O Subjective Review of Systems Patient seen and examined the bedside. Patient is sedated and on mechanical ventilation. RASS score is +1 to +2, chest x-ray shows worsening of bilaterally diffusing filtration. BP is increased to 8. Objective vital signs Vital Sign Date Time Temp Pulse Resp B/P (MAP) Pulse Ox O2 Delivery O2 Flow Rate FiO2 09/09/24 21:24 141/55 09/09/24 20:35 116 24 98 35 09/09/24 20:00 Mechanical Ventilator+ 09/09/24 10:30 100.4 100.4 Total Intake and Output 09/08/24 09/08/24 09/09/24 15:00 23:00 07:00 Intake Total 1599.32 ml 1825.37 ml 1316.52 ml Output Total 5760 ml 2245 ml Balance 1599.32 ml -3934.63 ml -928.48 ml medications Current Medications Medications Dose Ordered Sig/Snow Route Start Time Stop Time Status Last Admin Dose Admin Sodium Chloride 10 ml Q8HR IV 08/14/24 22:00 09/09/24 13:05 10 ML Calcitriol 1 mcg EOD IV 08/17/24 10:00 09/08/24 09:19 1 MCG Norepinephrine Bitartrate 250 ml @ 3.75 mls/hr Q24H IV 08/17/24 09:30 08/19/24 11:29 7.5 MLS/HR Amino Acids 0 ml @ 0 mls/hr PER PHARMACY IV 08/19/24 14:45 Sodium Chloride 10 ml QSHIFT@10,22 IV 08/19/24 22:00 09/09/24 08:46 10 ML Insulin Human (Reg)/Sodium Chloride 100 ml 1945 IV 08/21/24 19:45 UNV Acetaminophen 1,000 mg Q6HPRN PRN IV 08/22/24 23:15 09/09/24 14:10 1,000 MG Hydralazine HCl 10 mg Q6HP PRN IV 08/25/24 17:30 11/24/24 00:19 10 MG Labetalol HCl 10 mg Q2HPRN PRN IV 08/26/24 17:00 09/02/24 11:02 10 MG Diagnostic Test (Pha) 1 strip Q6HR 08/28/24 12:00 09/09/24 18:02 1 STRIP Insulin Human Regular Q6HR SC 08/28/24 12:00 09/08/24 18:19 2 UNITS Dextrose 50 ml UD PRN IV 08/28/24 09:15 Artificial Tears 1 drop Q2HP PRN EACHEYE 08/29/24 12:45 09/05/24 18:29 1 DROP Bumetanide 1 mg BIDD IV 09/01/24 18:00 09/09/24 16:39 1 MG Labetalol HCl 250 mg/Sodium Chloride 250 ml @ 60 mls/hr Q4H10M IV 09/02/24 20:00 Rocuronium Hewitt 50 mg Q6HP PRN IV 09/03/24 11:45 09/09/24 14:49 50 MG Midazolam HCl 50 ml @ 1 mls/hr Q24H IV 09/03/24 13:00 09/09/24 21:24 25 MLS/HR Linezolid 300 ml @ 150 mls/hr Q12H IV 09/03/24 20:00 09/09/24 20:58 150 MLS/HR Dexmedetomidine HCl 400 mcg/ Dextrose 100 ml @ 3.96 mls/hr Q24H IV 09/04/24 13:45 09/09/24 08:57 13.86 MLS/HR Fentanyl Citrate 250 ml @ 2.5 mls/hr Q24H IV 09/04/24 16:30 09/09/24 20:45 55 MLS/HR Pantoprazole Sodium 40 mg BID IV 09/05/24 13:45 09/09/24 08:45 40 MG Potassium Chloride 100 ml @ 50 mls/hr DAILY IV 09/06/24 10:00 09/09/24 22:50 09/09/24 08:46 50 MLS/HR Albuterol 2.5 mg Q6HR NEB 09/07/24 18:00 09/09/24 18:45 2.5 MG Hydromorphone HCl 2 mg Q6HPRN PRN IV 09/08/24 10:45 09/09/24 10:04 2 MG Sodium Acetate 40 meq/Potassium Acetate 30 meq/ Magnesium Sulfate 12 meq/ Multivitamins 10 ml/Chromium/ Copper/Manganese/ Zinc 1 ml/Amino Acids/Dextrose 1,049 ml @ 44 mls/hr [id number] IV 09/08/24 22:00 09/09/24 21:59 09/08/24 19:45 44 MLS/HR Azithromycin 250 ml @ 125 mls/hr DAILY IV 09/09/24 10:00 09/09/24 08:45 125 MLS/HR Cefepime HCl 50 ml @ 12.5 mls/hr Q8H IV 09/08/24 21:00 09/09/24 14:51 12.5 MLS/HR Sodium Acetate 20 meq/Potassium Acetate 40 meq/ Magnesium Sulfate 16 meq/ Multivitamins 10 ml/Chromium/ Copper/Manganese/ Zinc 1 ml/Amino Acids/Dextrose 1,045 ml @ 43 mls/hr [id number] IV 09/09/24 22:00 09/10/24 21:59 09/09/24 21:20 43 MLS/HR Haloperidol Lactate 5 mg Q4HPRN PRN IV 09/09/24 12:30 09/09/24 17:58 5 MG Rocuronium Hewitt 1000 mg/ Dextrose 250 ml @ 9.564 mls/ hr Q24H IV 09/09/24 14:45 09/09/24 16:19 9.564 MLS/HR Propofol 100 ml @ 2.391 mls/ hr Q24H IV 09/09/24 15:15 09/09/24 19:17 23.91 MLS/HR Examination General: RASS +1 to +2, afebrile, mucosae are moist Cardiovascular: Normal S1 and S2. No murmurs, gallops or rubs Respiratory: Mechanically assisted ventilation, equal bilateral airway entree. Bilateral diffuse crackles Abdomen: Soft, nontender, no organomegaly, normal bowel sounds MSK/skin: Mobilization of limbs cannot be evaluated. Skin is dry and warm. Neurological: Orientation cannot be assessed. No apparent motor no sensitive deficits. Pupils are isocoric and reactive laboratory and microbiology Laboratory Tests 09/09/24 03:20 Test 09/09/24 03:20 Range/Units Serum Glucose 118 H 74-106 mg/dL Microbiology Date/Time Source Procedure Growth Status 09/07/24 12:49 Stool Stool Culture - Preliminary Resulted 09/07/24 12:49 Stool Shiga Toxin I & II - Final Resulted 09/04/24 11:21 Bronchial Washings Gram Stain - Final Complete 09/04/24 11:21 Respiratory Culture - Final Presumptive Dariana albicans Complete 09/02/24 18:49 Voided Urine Urine Culture - Final Complete 09/02/24 15:58 Blood Blood Culture - Final NO GROWTH AFTER 5 DAYS OF INCUBATION. Complete 08/15/24 13:32 Nose MRSA Screen - Final Complete Labs and/or images reviewed: Labs reviewed by me, Image(s) reviewed by me Problem List/Assessment/Plan Problem List/Assessment/Plan NEURO: Acute metabolic encephalopathy, likely due to pancreatitis leading to abdominal compartment syndrome and respiratory failure Patient is sedated and on mechanical ventilation, with RASS score of +1 to +2, despite being on Diprivan, Versed, fentanyl, haloperidol Started rocuronium drip on 09/09 Bilateral eye bulging, artificial tears Pain medication: Fentanyl drip 550, and Dilaudid mg q.6 hours as needed CARDIOVASCULAR: Hypertensive urgency, controlled Injection hydralazine 10 mg q.6 hours as needed PULMONARY: Acute hypercapnic/hypoxic respiratory failure due to hypertriglyceridemia induced pancreatitis leading to abdominal compartment syndrome and respiratory failure/pneumonia Pneumonia likely due to Gram-negative Gram-positive bacteria ARDS, likely due to pancreatitis Pleural effusion Bronchoscopy performed on 09/04/2024, there was some secretion on right lower lobe, bronchial lavage of right and left lower bronchi was performed, and the sample was sent for the culture sensitivity, Gram stain and AFB Bilateral pleural effusion with bibasilar atelectasis Blood culture from 09/02/[address] scan on 09/05 shows small to moderate left pleural effusion Chest x-rays on 09/09 shows worsening of bilateral diffuse infiltration Continue linezolid (started on 09/03) azithromycin(started on 09/09) and cefepime started on 09/08 GI: Abdominal compartment syndrome, status post decompression status post decompressive laparotomy (08/18/2024) re-exploratory irrigation of abdomen on 08/20/2024 Surgery on the board, recommended conservative management Daily monitoring of intra-abdominal pressure GI evaluated the patient and recommended Dulcolax suppository and stopped Reglan CT abdomen repeated on 09/05 and shows significant peripancreatic fluid/edema with [id number] ascites GI ppx: Protonix b.i.d. RENAL: UTI, likely hemodynamically mediated, improved Continue Bumex 1 mg b.i.d. ID: Meropenem and doxycycline was stopped on 09/02/2024 Blood culture From 09/02/2024 shows no growth after 48 hour Urine culture from 09/02/2024 shows no growth Sputum culture from 08/16 shows beta strep 9 a, non B Bronchial alveolar lavage culture results from 09/04 shows presumptive Dariana albicans Stool results from 09/07 shows Campylobacter antigen Continue linezolid, cefepime and azithromycin Metabolic: Hyponatremia, improved Hypocalcemia, improved, calcitriol 1 mcg IV daily Hypophosphatemia, improved Hypomagnesemia, improved Hypokalemia normalized HEME: Severe anemia, likely due to intra-abdominal bleeding Six pintt of blood has been transfused ENDOCRINE: Familiar hypertriglyceridemia Insulin drip has been discontinued Daily triglycerides monitoring Patient is sensitive to fenofibrate LINES/DRAINS/ACCESS: ETT, put on 08/16/24 IV access Right internal jugular vein, placed on 08/16/2024 and removed on 09/09 Right PICC line, placed on 08/20/2024 Transurethral Gutierrez catheter, placed on 08/20/2024 Drips Diprivan 50 Discontinued Precedex 0.7 Versed 25 Fentanyl 550 rocuronium drip DVT prophylaxis Stopped Lovenox due to severe anemia and possible intra-abdominal hemorrhage SCDs Diet: NPO TPN Discontinued oral medications including atorvastatin, diazepam, and ergocalciferol CODE STATUS: Full code Patient's status discussed with the mother and father at the bedside. Critical Care time spent more than 89 minutes, including patient care, chart review and updating the family, excluding any procedures. Case discussed with Dr. Cochran Plan discussed with: Patient, Other (Mother and father) My Orders My Orders Orders - BOZENA TRENT RESDIBOB Procedure Category Date Status Time Complete Blood Count LAB 09/10/24 Verified 04:00 Chest Xray 1 View XY 09/10/24 Logged 04:00 Abg W/ Co-Ox RT 09/10/24 Logged 04:00 Dietary Evaluation Review Comments: 1) Increase TPN to meet at least 75% of estimated needs 2) Advance pt diet when medically feasible to a Low Fat diet 3) Continue current plan of care Expected Outcomes/Goals: 1) Pt diet to advance 2) Pt labs to improve 3) F/U in 2-3 days Date of Service: Sep 09, 2024 Billing Provider: GUS COCHRAN MD Common Visit Codes: 50326-[id number] CARE 30-74 MIN, [id number] CARE-EACH +30MIN BOZENA TRENT RESDIENT Sep 09, 2024 21:44 GUS COCHRAN MD Sep 10, 2024 11:29
[2024-09-10] VITALS (109 sets, daily range): BP systolic 75–224; BP diastolic 33–187; PULSE 84–134; RESP 19–34; TEMP 97.7–101.5; O2SAT 60–100
[2024-09-10 04:30] LABS: Alanine Aminotransferase 18 U/L (7-40); Albumin 3.5 g/dL (3.2-4.8); Alkaline Phosphatase 101 U/L (46-116); Anion Gap 11 (5-15); Aspartate Aminotransferase 28 U/L (13-40); BUN/Creatinine Ratio 23.3 (10.0-20.0); Blood Urea Nitrogen 17 mg/dL (9-23); Calcium 9.5 mg/dL (8.7-10.4); Carbon Dioxide 24 mmol/L (20-31); Chloride 105 mmol/L (98-107); Glucose 133 mg/dL (74-106); Magnesium 1.8 mg/dL (1.6-2.6); Phosphorus 5.5 mg/dL (2.4-5.1); Potassium 5.5 mmol/L (3.5-5.1); Sodium 140 mmol/L (136-145)
[2024-09-10 04:31] LABS: Bilirubin, Total 0.5 mg/dL (0.2-1.0); Total Protein 6.7 g/dL (5.7-8.2)
--- NOTE | 2024-09-10 04:33 | DVH ---
CHEST RADIOGRAPH Indication: ARDS Technique: Single frontal view of the chest was obtained COMPARISON: XY CHEST XRAY 1 VIEW on DOS: 09/09/24, XY CHEST PORTABLE on DOS: 09/08/24, XY CHEST XRAY 1 VIEW on DOS: 09/07/24, XY CHEST XRAY 1 VIEW on DOS: 09/09/24 FINDINGS: Lines and Tubes: Endotracheal tube, enteric catheter and right central venous catheter and right PICC in satisfactory position. Lungs: Multifocal airspace disease. Pleura: No effusion. No pneumothorax. Cardiomediastinal contours: Unremarkable Bones: Unremarkable IMPRESSION: Lines and tubes in satisfactory position. No significant interval change.
[2024-09-10 08:06] LABS: Base Excess 3.1 mmol/L (-2.0-3.0)
[2024-09-10 09:45] LABS: Basophils # (auto) 0.1 10 ^3/uL (0-0.2); Basophils % (auto) 0.7 % (0.0-2.0); Eosinophils # (auto) 0.1 10 ^3/uL (0-0.8); Eosinophils % (auto) 1.4 % (0.0-7.0); Hematocrit 29.6 % (36.0-46.0); Hemoglobin 10.1 g/dL (12.2-16.2); Lymphocytes # (auto) 1.2 10 ^3/uL (0.4-5.4); Lymphocytes % (auto) 13.8 % (10.0-50.0); Mean Corpuscular Hemoglobin 29.3 pg (28.0-32.0); Mean Corpuscular Hgb Conc. 34.3 g/dL (32.0-36.0); Mean Corpuscular Volume 85.3 fL (80.0-100.0); Monocytes # (auto) 0.8 10 ^3/uL (0-1.3); Monocytes % (auto) 9.7 % (0.0-12.0); Neutrophils # (auto) 6.2 10 ^3/uL (1.6-8.6); Neutrophils % (auto) 74.4 % (37.0-80.0); Nucleated Red Blood Cells % 0.2 %; Platelet Count (auto) 358 10^3/uL (140-450); Red Blood Cells 3.47 10^6/uL (4.0-5.20); Red Cell Distribution Width 14.7 % (11.8-14.3); White Blood Cell 8.3 10^3/uL (4.4-10.8)
[2024-09-10 09:55] LABS: Alanine Aminotransferase 22 U/L (7-40); Albumin 3.6 g/dL (3.2-4.8); Alkaline Phosphatase 99 U/L (46-116); Anion Gap 8 (5-15); Aspartate Aminotransferase 19 U/L (13-40); BUN/Creatinine Ratio 29.9 (10.0-20.0); Bilirubin, Total 0.5 mg/dL (0.2-1.0); Blood Urea Nitrogen 20 mg/dL (9-23); Calcium 9.8 mg/dL (8.7-10.4); Carbon Dioxide 30 mmol/L (20-31); Chloride 102 mmol/L (98-107); Glucose 120 mg/dL (74-106); Potassium 4.2 mmol/L (3.5-5.1); Sodium 140 mmol/L (136-145); Total Protein 6.9 g/dL (5.7-8.2)
[2024-09-10] MEDS: Jevity 1.2 Cal/Fiber 1 Liter GT SCH (13:23)
--- NOTE | 2024-09-10 18:06 | DVHPNRES ---
Progress Note Date Seen: Sep 10, 2024 Resident Creating Document: BOZENA TRENT RESDIENT Has the PT tested + for MRSA If YES, has PT been informed?: Yes Medical Necessity Reason Pt with a Central, PICC or Fol: Yes The following are medically ne: Central Line, Gutierrez Catheter Reason for gutierrez catheter: Strict I&O Subjective Review of Systems This a 34-year-old female with a history of hyperlipidemia (HLD) presented to the emergency department with severe epigastric pain since 1 day before admission. She reported having crampy pain spreading throughout her abdomen, along with nausea, vomiting, and chills. She denies fever, chest pain, shortness of breath, fatigue, and weakness. family history positive for hypertriglyceridemia in paternal side With father affected. Noted previous extensive skin rash/ allergy to fenofibrate and presently on atorvastatin 40 mg daily only. Today, patient seen and examined at the bedside. Patient is more calm in compared to yesterday. She was sedated and on mechanical ventilation and review the same could not obtain. Patient reports: Feels better Changes from previous H/P or p: Changes Objective vital signs Vital Sign Date Time Temp Pulse Resp B/P (MAP) Pulse Ox O2 Delivery O2 Flow Rate FiO2 09/10/24 17:02 189/87 09/10/24 15:45 119 24 100 09/10/24 15:31 35 09/10/24 15:00 100.2 100.2 09/10/24 14:00 Mechanical Ventilator+ Total Intake and Output 09/09/24 09/09/24 09/10/24 15:00 23:00 07:00 Intake Total 1294.45 ml 1470.924 ml 1286.184 ml Output Total 3175 ml 4111 ml Balance 1294.45 ml -1704.076 ml -2824.816 ml medications Current Medications Medications Dose Ordered Sig/Snow Route Start Time Stop Time Status Last Admin Dose Admin Sodium Chloride 10 ml Q8HR IV 08/14/24 22:00 09/10/24 14:00 10 ML Calcitriol 1 mcg EOD IV 08/17/24 10:00 09/10/24 10:25 1 MCG Norepinephrine Bitartrate 250 ml @ 3.75 mls/hr Q24H IV 08/17/24 09:30 08/19/24 11:29 7.5 MLS/HR Sodium Chloride 10 ml QSHIFT@10,22 IV 08/19/24 22:00 09/10/24 10:25 10 ML Insulin Human (Reg)/Sodium Chloride 100 ml 1945 IV 08/21/24 19:45 UNV Acetaminophen 1,000 mg Q6HPRN PRN IV 08/22/24 23:15 09/10/24 16:06 1,000 MG Hydralazine HCl 10 mg Q6HP PRN IV 08/25/24 17:30 09/10/24 15:19 10 MG Diagnostic Test (Pha) 1 strip Q6HR 08/28/24 12:00 09/10/24 11:37 1 STRIP Insulin Human Regular Q6HR SC 08/28/24 12:00 09/10/24 11:39 2 UNITS Dextrose 50 ml UD PRN IV 08/28/24 09:15 Artificial Tears 1 drop Q2HP PRN EACHEYE 08/29/24 12:45 09/10/24 09:15 1 DROP Bumetanide 1 mg BIDD IV 09/01/24 18:00 09/10/24 05:24 1 MG Labetalol HCl 250 mg/Sodium Chloride 250 ml @ 60 mls/hr Q4H10M IV 09/02/24 20:00 Rocuronium Blachly 50 mg Q6HP PRN IV 09/03/24 11:45 09/09/24 14:49 50 MG Midazolam HCl 50 ml @ 1 mls/hr Q24H IV 09/03/24 13:00 09/10/24 17:02 25 MLS/HR Linezolid 300 ml @ 150 mls/hr Q12H IV 09/03/24 20:00 09/10/24 08:41 150 MLS/HR Dexmedetomidine HCl 400 mcg/ Dextrose 100 ml @ 3.96 mls/hr Q24H IV 09/04/24 13:45 09/09/24 08:57 13.86 MLS/HR Fentanyl Citrate 250 ml @ 2.5 mls/hr Q24H IV 09/04/24 16:30 09/10/24 15:10 55 MLS/HR Pantoprazole Sodium 40 mg BID IV 09/05/24 13:45 09/10/24 10:24 40 MG Albuterol 2.5 mg Q6HR NEB 09/07/24 18:00 12/3/24 12:06 2.5 MG Hydromorphone HCl 2 mg Q6HPRN PRN IV 09/08/24 10:45 09/10/24 14:46 2 MG Azithromycin 250 ml @ 125 mls/hr DAILY IV 09/09/24 10:00 09/10/24 12:30 125 MLS/HR Cefepime HCl 50 ml @ 12.5 mls/hr Q8H IV 09/08/24 21:00 09/10/24 13:48 12.5 MLS/HR Haloperidol Lactate 5 mg Q4HPRN PRN IV 09/09/24 12:30 09/09/24 17:58 5 MG Rocuronium Blachly 1000 mg/ Dextrose 250 ml @ 9.564 mls/ hr Q24H IV 09/09/24 14:45 09/10/24 09:11 14.346 MLS/HR Propofol 100 ml @ 2.391 mls/ hr Q24H IV 09/09/24 15:15 09/10/24 16:36 23.91 MLS/HR Enteral Nutritional Formula 1,000 ml 30ML/HR GT 09/10/24 11:30 09/10/24 13:23 1,000 ML Examination General: RASS 0 to +1 , afebrile, mucosae are moist Cardiovascular: Normal S1 and S2. No murmurs, gallops or rubs Respiratory: Mechanically assisted ventilation, equal bilateral airway entree. Bilateral diffuse crackles Abdomen: Soft, nontender, no organomegaly, normal bowel sounds MSK/skin: Mobilization of limbs cannot be evaluated. Skin is dry and warm. Neurological: Orientation cannot be assessed. No apparent motor no sensitive deficits. Pupils are isocoric and reactive laboratory and microbiology Laboratory Tests 09/10/24 09:00 Test 09/10/24 09:00 Range/Units Serum Glucose 120 H 74-106 mg/dL Microbiology Date/Time Source Procedure Growth Status 09/07/24 12:49 Stool Stool Culture - Final Complete 09/07/24 12:49 Stool Shiga Toxin I & II - Final Complete 09/04/24 11:21 Bronchial Washings Gram Stain - Final Complete 09/04/24 11:21 Respiratory Culture - Final Presumptive Dariana albicans Complete 09/02/24 18:49 Voided Urine Urine Culture - Final Complete 09/02/24 15:58 Blood Blood Culture - Final NO GROWTH AFTER 5 DAYS OF INCUBATION. Complete 08/15/24 13:32 Nose MRSA Screen - Final Complete Labs and/or images reviewed: Labs reviewed by me, Image(s) reviewed by me Problem List/Assessment/Plan Problem List/Assessment/Plan This a 34-year-old female with a history of hyperlipidemia presented to the emergency department with severe epigastric pain since 1 day before admission. Admitted on 08/14 and intubated on 08/16 NEURO: Acute metabolic encephalopathy, likely due to pancreatitis leading to abdominal compartment syndrome and respiratory failure Patient is sedated and on mechanical ventilation, with RASS score of 0 to +1, despite being on Diprivan, Versed, fentanyl, haloperidol Started rocuronium drip on 09/09 Bilateral eye bulging, artificial tears Pain medication: Fentanyl drip 550, and Dilaudid mg q.6 hours as needed CARDIOVASCULAR: Hypertensive urgency, controlled Injection hydralazine 10 mg q.6 hours as needed PULMONARY: Acute hypercapnic/hypoxic respiratory failure due to hypertriglyceridemia induced pancreatitis leading to abdominal compartment syndrome and respiratory failure/pneumonia Pneumonia likely due to Gram-negative Gram-positive bacteria ARDS, likely due to pancreatitis Pleural effusion Bronchoscopy performed on 09/04/2024, there was some secretion on right lower lobe, bronchial lavage of right and left lower bronchi was performed, and the sample was sent for the culture sensitivity, Gram stain and AFB Bilateral pleural effusion with bibasilar atelectasis Blood culture from 09/02/2024 shows no growth ABGs shows respiratory acidosis with pH 7.313 CT scan on 09/05 shows small to moderate left pleural effusion Chest x-rays on 09/10 shows bilateral diffuse infiltration with mild improved in compared to yesterday Continue linezolid (started on 09/03) azithromycin(started on 09/09) and cefepime started on 09/08 GI: Abdominal compartment syndrome, status post decompression status post decompressive laparotomy (08/18/2024) re-exploratory irrigation of abdomen on 08/20/2024 Surgery on the board, recommended conservative management Daily monitoring of intra-abdominal pressure GI evaluated the patient and recommended Dulcolax suppository and stopped Reglan CT abdomen repeated on 09/05 and shows significant peripancreatic fluid/edema with [id number] ascites GI ppx: Protonix b.i.d. RENAL: UTI, likely hemodynamically mediated, improved Continue Bumex 1 mg b.i.d. ID: Meropenem and doxycycline was stopped on 09/02/2024 Blood culture From 09/02/2024 shows no growth after 48 hour Urine culture from 09/02/2024 shows no growth Sputum culture from 08/16 shows beta strep 9 a, non B Bronchial alveolar lavage culture results from 09/04 shows presumptive Dariana albicans Stool results from 09/07 shows Campylobacter antigen Continue linezolid, cefepime and azithromycin Metabolic: Hyponatremia, improved Hypocalcemia, improved, continue calcitriol 1 mcg IV daily Hypophosphatemia, improved Hypomagnesemia, improved Hypokalemia, normalized Hyperkalemia, hypokalemia treatment given, normalized Hypomagnesemia, supplement HEME: Severe anemia, likely due to intra-abdominal bleeding Six pint of blood has been transfused ENDOCRINE: Familiar hypertriglyceridemia Insulin drip has been discontinued Daily triglycerides monitoring Patient is sensitive to fenofibrate LINES/DRAINS/ACCESS: ETT, put on 08/16/24 IV access Right internal jugular vein, placed on 08/16/2024 and removed on 09/09 Right PICC line, placed on 08/20/2024 Transurethral Gutierrez catheter, placed on 08/20/2024 Drips Diprivan 50 Versed 25 Fentanyl 550 rocuronium 12 DVT prophylaxis Stopped Lovenox due to severe anemia and possible intra-abdominal hemorrhage SCDs Diet: Stopped TPN OG tube, Jevity 30 mL/hour Disposition: ICU status, keep in ICU CODE STATUS: Full code Patient's status discussed with the mother and father at the bedside. Critical Care time spent more than 81 minutes, including patient care, chart review and updating the family, excluding any procedures. Case discussed with Dr. Cochran Plan discussed with: Patient, Other (Parents and RN) My Orders My Orders Orders - BOZENA TRENT RESDIBOB Procedure Category Date Status Time Abg W/ Co-Ox RT 09/10/24 Logged 05:15 Triglycerides LAB 09/11/24 Verified 04:00 Dietary Evaluation Review Comments: 1) Increase TPN to meet at least 75% of estimated needs 2) Advance pt diet when medically feasible to a Low Fat diet 3) Continue current plan of care Expected Outcomes/Goals: 1) Pt diet to advance 2) Pt labs to improve 3) F/U in 2-3 days Date of Service: Sep 10, 2024 Billing Provider: GUS COCHRAN MD Common Visit Codes: 11592-[id number] CARE 30-74 MIN, [id number] CARE-EACH +30MIN BOZENA TRENT Sep 10, 2024 18:06 GUS COCHRAN MD Sep 11, 2024 11:13
[2024-09-10] MEDS ORDERED: TPN PER PHARMACY IV NR (22:00)
[2024-09-11] VITALS (109 sets, daily range): BP systolic 96–191; BP diastolic 34–99; PULSE 94–134; RESP 13–30; TEMP 98.5–101.6; O2SAT 95–100
[2024-09-11 03:45] LABS: Basophils # (auto) 0.1 10 ^3/uL (0-0.2); Basophils % (auto) 0.9 % (0.0-2.0); Eosinophils # (auto) 0.5 10 ^3/uL (0-0.8); Eosinophils % (auto) 4.6 % (0.0-7.0); Hematocrit 30.5 % (36.0-46.0); Hemoglobin 10.4 g/dL (12.2-16.2); Lymphocytes # (auto) 1.7 10 ^3/uL (0.4-5.4); Lymphocytes % (auto) 16.7 % (10.0-50.0); Mean Corpuscular Hemoglobin 29.1 pg (28.0-32.0); Mean Corpuscular Volume 85.7 fL (80.0-100.0); Monocytes # (auto) 0.8 10 ^3/uL (0-1.3); Monocytes % (auto) 8.2 % (0.0-12.0); Neutrophils # (auto) 7.2 10 ^3/uL (1.6-8.6); Neutrophils % (auto) 69.6 % (37.0-80.0); Platelet Count (auto) 408 10^3/uL (140-450); Red Blood Cells 3.56 10^6/uL (4.0-5.20); Red Cell Distribution Width 14.8 % (11.8-14.3); White Blood Cell 10.3 10^3/uL (4.4-10.8)
[2024-09-11 04:05] LABS: Alanine Aminotransferase 16 U/L (7-40); Albumin 3.7 g/dL (3.2-4.8); Alkaline Phosphatase 91 U/L (46-116); Anion Gap 9 (5-15); Aspartate Aminotransferase 16 U/L (13-40); BUN/Creatinine Ratio 23.2 (10.0-20.0); Blood Urea Nitrogen 16 mg/dL (9-23); Carbon Dioxide 28 mmol/L (20-31); Chloride 101 mmol/L (98-107); Potassium 4.6 mmol/L (3.5-5.1); Sodium 138 mmol/L (136-145)
[2024-09-11 04:06] LABS: Bilirubin, Total 0.6 mg/dL (0.2-1.0); Total Protein 6.9 g/dL (5.7-8.2)
[2024-09-11 04:07] LABS: Glucose 108 mg/dL (74-106)
[2024-09-11 04:26] LABS: Triglycerides 394 mg/dL (< 150)
--- NOTE | 2024-09-11 04:26 | DVH ---
CHEST RADIOGRAPH Indication: Pneumonia Technique: Single frontal view of the chest was obtained COMPARISON: XY CHEST XRAY 1 VIEW on DOS: 09/10/24, XY CHEST XRAY 1 VIEW on DOS: 09/09/24, XY CHEST PORT ABLE on DOS: 09/08/24 FINDINGS: Lines and Tubes: Endotracheal tube and enteric catheter in satisfactory position. Right PICC in satis factory position. Lungs: Multifocal airspace disease. Pleura: No effusion. No pneumothorax. Cardiomediastinal contours: Unremarkable Bones: Unremarkable IMPRESSION: Lines and tubes in satisfactory position. No significant interval change.
[2024-09-11 06:49] LABS: Base Excess 2.9 mmol/L (-2.0-3.0)
[2024-09-11] MEDS: MEROPENEM 1GM IVPB 50 ML IV ONE (11:45)
[2024-09-11] MEDS: LABETALOL HCL 200 MG TAB PO ONE (12:45)
--- NOTE | 2024-09-11 20:35 | DVHPNRES ---
Progress Note Date Seen: Sep 11, 2024 Resident Creating Document: BOZENA TRENT RESDIENT Has the PT tested + for MRSA If YES, has PT been informed?: Yes Medical Necessity Reason Pt with a Central, PICC or Fol: Yes The following are medically ne: Central Line, Gutierrez Catheter Reason for gutierrez catheter: Strict I&O Subjective Review of Systems his a 34-year-old female with a history of hyperlipidemia (HLD) presented to the emergency department with severe epigastric pain since 1 day before admission. She reported having crampy pain spreading throughout her abdomen, along with nausea, vomiting, and chills. She denies fever, chest pain, shortness of breath, fatigue, and weakness. family history positive for hypertriglyceridemia in paternal side With father affected. Noted previous extensive skin rash/ allergy to fenofibrate and presently on atorvastatin 40 mg daily only. Today, patient seen and examined at the bedside. Patient is more calm in compared to yesterday. She was sedated and on mechanical ventilation and review of systems could not obtain. Objective vital signs Vital Sign Date Time Temp Pulse Resp B/P (MAP) Pulse Ox O2 Delivery O2 Flow Rate FiO2 09/11/24 18:50 152/78 09/11/24 18:45 111 22 98 09/11/24 18:31 99.6 99.6 09/11/24 18:16 30 09/11/24 18:00 Mechanical Ventilator+ Total Intake and Output 09/10/24 09/10/24 09/11/24 15:00 23:00 07:00 Intake Total 1723.712 ml 1551.716 ml 1626.548 ml Output Total 1350 ml 1515 ml 1550 ml Balance 373.712 ml 36.716 ml 76.548 ml medications Current Medications Medications Dose Ordered Sig/Snow Route Start Time Stop Time Status Last Admin Dose Admin Sodium Chloride 10 ml Q8HR IV 08/14/24 22:00 09/11/24 05:47 10 ML Calcitriol 1 mcg EOD IV 08/17/24 10:00 09/10/24 10:25 1 MCG Norepinephrine Bitartrate 250 ml @ 3.75 mls/hr Q24H IV 08/17/24 09:30 08/19/24 11:29 7.5 MLS/HR Sodium Chloride 10 ml QSHIFT@,22 IV 08/19/24 22:00 09/11/24 09:10 10 ML Insulin Human (Reg)/Sodium Chloride 100 ml 1945 IV 08/21/24 19:45 UNV Acetaminophen 1,000 mg Q6HPRN PRN IV 08/22/24 23:15 09/11/24 09:28 1,000 MG Hydralazine HCl 10 mg Q6HP PRN IV 08/25/24 17:30 09/11/24 09:27 10 MG Diagnostic Test (Pha) 1 strip Q6HR 08/28/24 12:00 09/11/24 17:49 1 STRIP Dextrose 50 ml UD PRN IV 08/28/24 09:15 Artificial Tears 1 drop Q2HP PRN EACHEYE 08/29/24 12:45 09/11/24 17:50 1 DROP Bumetanide 1 mg BIDD IV 09/01/24 18:00 09/11/24 18:32 1 MG Labetalol HCl 250 mg/Sodium Chloride 250 ml @ 60 mls/hr Q4H10M IV 09/02/24 20:00 09/10/24 18:27 60 MLS/HR Midazolam HCl 50 ml @ 1 mls/hr Q24H IV 09/03/24 13:00 09/11/24 18:50 25 MLS/HR Linezolid 300 ml @ 150 mls/hr Q12H IV 09/03/24 20:00 09/11/24 08:20 150 MLS/HR Fentanyl Citrate 250 ml @ 2.5 mls/hr Q24H IV 09/04/24 16:30 09/11/24 17:48 55 MLS/HR Pantoprazole Sodium 40 mg BID IV 09/05/24 13:45 09/11/24 09:09 40 MG Albuterol 2.5 mg Q6HR NEB 09/07/24 18:00 09/11/24 18:16 2.5 MG Hydromorphone HCl 2 mg Q6HPRN PRN IV 09/08/24 10:45 09/11/24 18:33 2 MG Azithromycin 250 ml @ 125 mls/hr DAILY IV 09/09/24 10:00 09/11/24 09:09 125 MLS/HR Haloperidol Lactate 5 mg Q4HPRN PRN IV 09/09/24 12:30 09/11/24 20:01 5 MG Propofol 100 ml @ 2.391 mls/ hr Q24H IV 09/09/24 15:15 09/11/24 17:02 23.91 MLS/HR Enteral Nutritional Formula 1,000 ml 30ML/HR GT 09/10/24 11:30 09/11/24 18:43 1,000 ML Meropenem 50 ml @ 17 mls/hr Q8HR IV 09/11/24 22:00 Examination General: RASS 0 to +1 , afebrile, mucosae are moist Cardiovascular: Normal S1 and S2. No murmurs, gallops or rubs Respiratory: Mechanically assisted ventilation, equal bilateral airway entree. Bilateral diffuse crackles Abdomen: Soft, nontender, no organomegaly, normal bowel sounds MSK/skin: Mobilization of limbs cannot be evaluated. Skin is dry and warm. Neurological: Orientation cannot be assessed. No apparent motor no sensitive deficits. Pupils are isocoric and reactive laboratory and microbiology Laboratory Tests 09/11/24 03:28 Test 09/11/24 03:28 Range/Units Serum Glucose 108 H 74-106 mg/dL Microbiology Date/Time Source Procedure Growth Status 09/07/24 12:49 Stool Stool Culture - Final Complete 09/07/24 12:49 Stool Shiga Toxin I & II - Final Complete 09/04/24 11:21 Bronchial Washings Gram Stain - Final Complete 09/04/24 11:21 Respiratory Culture - Final Presumptive Dariana albicans Complete 09/02/24 18:49 Voided Urine Urine Culture - Final Complete 09/02/24 15:58 Blood Blood Culture - Final NO GROWTH AFTER 5 DAYS OF INCUBATION. Complete 08/15/24 13:32 Nose MRSA Screen - Final Complete Labs and/or images reviewed: Labs reviewed by me, Image(s) reviewed by me Problem List/Assessment/Plan Problem List/Assessment/Plan This a 34-year-old female with a history of hyperlipidemia presented to the emergency department with severe epigastric pain since 1 day before admission. Admitted on 08/14 and intubated on 08/16 NEURO: Acute metabolic encephalopathy, likely due to pancreatitis leading to abdominal compartment syndrome and respiratory failure Patient is sedated and on mechanical ventilation, with RASS score of 0 to +1, despite being on Diprivan, Versed, fentanyl, haloperidol Started rocuronium drip on 09/09 Bilateral eye bulging, artificial tears Pain medication: Fentanyl drip 550, and Dilaudid 2mg q.6 hours as needed CARDIOVASCULAR: Hypertensive urgency, controlled Injection hydralazine 10 mg q.6 hours as needed PULMONARY: Acute hypercapnic/hypoxic respiratory failure due to hypertriglyceridemia induced pancreatitis leading to abdominal compartment syndrome and respiratory failure/pneumonia Pneumonia likely due to Gram-negative Gram-positive bacteria ARDS, likely due to pancreatitis Pleural effusion Bronchoscopy performed on 09/04/2024, there was some secretion on right lower lobe, bronchial lavage of right and left lower bronchi was performed, and the sample was sent for the culture sensitivity, Gram stain and AFB Bilateral pleural effusion with bibasilar atelectasis Blood culture from 09/02/2024 shows no growth ABGs shows respiratory acidosis with pH 7.313 CT scan on 09/05 shows small to moderate left pleural effusion Chest x-rays on 09/10 shows bilateral diffuse infiltration ABGs shows respiratory acidosis with metabolic compensation, pH 7.406 Continue linezolid (started on 09/03) azithromycin(started on 09/09) and discontinued cefepime (given for 4 days) Started meropenem on 09/11 CPAP at a.m. GI: Abdominal compartment syndrome, status post decompression status post decompressive laparotomy (08/18/2024) re-exploratory irrigation of abdomen on 08/20/2024 Surgery on the board, recommended conservative management Daily monitoring of intra-abdominal pressure GI evaluated the patient and recommended Dulcolax suppository and stopped Reglan CT abdomen repeated on 09/05 and shows significant peripancreatic fluid/edema with [id number] ascites GI ppx: Protonix b.i.d. RENAL: UTI, likely hemodynamically mediated, improved Continue Bumex 1 mg b.i.d. ID: Meropenem and doxycycline was stopped on 09/02/2024 Blood culture From 09/02/2024 shows no growth after 48 hour Urine culture from 09/02/2024 shows no growth Sputum culture from 08/16 shows beta strep 9 a, non B Bronchial alveolar lavage culture results from 09/04 shows presumptive Dariana albicans Stool results from 09/07 shows Campylobacter antigen Continue linezolid, cefepime and azithromycin Metabolic: Hyponatremia, improved Hypocalcemia, improved, continue calcitriol 1 mcg IV daily Hypophosphatemia, improved Hypomagnesemia, improved Hypokalemia, normalized Hyperkalemia, hypokalemia treatment given, normalized Hypomagnesemia, supplement HEME: Severe anemia, likely due to intra-abdominal bleeding Six pint of blood has been transfused ENDOCRINE: Familiar hypertriglyceridemia Insulin drip has been discontinued Daily triglycerides monitoring Patient is sensitive to fenofibrate LINES/DRAINS/ACCESS: ETT, put on 08/16/24 IV access Right internal jugular vein, placed on 08/16/2024 and removed on 09/09 Right PICC line, placed on 08/20/2024 Transurethral Gutierrez catheter, placed on 08/20/2024 Drips Diprivan 50 Versed 25 Fentanyl 550 Discontinued paralytics DVT prophylaxis Lovenox 40 mg daily Diet: OG tube, Jevity 30 mL/hour Disposition: ICU status, keep in ICU CODE STATUS: Full code Patient's status discussed with the mother and father at the bedside. Critical Care time spent more than 83 minutes, including patient care, chart review and updating the family, excluding any procedures. Case discussed with Dr. Cochran Plan discussed with: Patient, Other (Pt and RN) My Orders My Orders Orders - BOZENA TRENT RESDIBOB Procedure Category Date Status Time Complete Blood Count LAB 09/12/24 Verified 04:00 Comprehensive LAB 09/12/24 Verified Metabolic Panel 04:00 Chest Xray 1 View XY 09/12/24 Logged 04:00 Abg W/ Co-Ox RT 09/12/24 Logged 04:00 Dietary Evaluation Review Comments: 1) Increase TPN to meet at least 75% of estimated needs 2) Advance pt diet when medically feasible to a Low Fat diet 3) Continue current plan of care Expected Outcomes/Goals: 1) Pt diet to advance 2) Pt labs to improve 3) F/U in 2-3 days Date of Service: Sep 11, 2024 Billing Provider: GUS COCHRAN MD Common Visit Codes: [id number] CARE 30-74 MIN, [id number] CARE-EACH +30MIN BOZENA TRENT RESDIENT Sep 11, 2024 20:34 GUS COCHRAN MD Sep 12, 2024 11:01
[2024-09-11] MEDS ORDERED: KETAMINE 50mg/ML 10ml Vial 500 MG in SODIUM CHL 0.9% 490 ML IV SCH (21:15)
[2024-09-11] MEDS ORDERED: LABETALOL HCL 200 MG TAB PO SCH (22:00)
[2024-09-11] MEDS: KETOROLAC TROMETH 30 MG/ML 1ML VIAL IV PRN (22:37)
[2024-09-11] MEDS: MEROPENEM 1GM IVPB 50 ML IV SCH (22:38)
[2024-09-11] MEDS: ENOXAPARIN SOD 40 MG/0.4 ML SYRINGE SC ONE (22:41)
[2024-09-12] VITALS (85 sets, daily range): BP systolic 97–191; BP diastolic 36–144; PULSE 82–132; RESP 10–37; TEMP 98.2–100.6; O2SAT 93–100
[2024-09-12] MEDS: diazePAM 5 MG TAB PO PRN (01:30)
[2024-09-12 03:29] LABS: Hematocrit 27.2 % (36.0-46.0); Hemoglobin 9.3 g/dL (12.2-16.2); Mean Corpuscular Hemoglobin 29.3 pg (28.0-32.0); Mean Corpuscular Hgb Conc. 34.2 g/dL (32.0-36.0); Mean Corpuscular Volume 85.5 fL (80.0-100.0); Platelet Count (auto) 291 10^3/uL (140-450); Red Blood Cells 3.19 10^6/uL (4.0-5.20); Red Cell Distribution Width 14.6 % (11.8-14.3); White Blood Cell 9.1 10^3/uL (4.4-10.8)
[2024-09-12 03:51] LABS: Alanine Aminotransferase 15 U/L (7-40); Albumin 3.6 g/dL (3.2-4.8); Alkaline Phosphatase 79 U/L (46-116); Anion Gap 10 (5-15); Aspartate Aminotransferase 16 U/L (13-40); BUN/Creatinine Ratio 21.8 (10.0-20.0); Blood Urea Nitrogen 17 mg/dL (9-23); Calcium 9.8 mg/dL (8.7-10.4); Carbon Dioxide 29 mmol/L (20-31); Chloride 101 mmol/L (98-107); Glucose 93 mg/dL (74-106); Potassium 3.6 mmol/L (3.5-5.1); Sodium 140 mmol/L (136-145)
[2024-09-12 03:52] LABS: Bilirubin, Total 0.4 mg/dL (0.2-1.0); Total Protein 6.3 g/dL (5.7-8.2)
[2024-09-12 04:06] LABS: Basophils % (manual) 0 (0.0-2.0); Blast Cells 0; Promyelocytes % 0; Reactive Lymphocytes 0
--- NOTE | 2024-09-12 04:08 | DVH ---
CHEST RADIOGRAPH Indication: Pneumonia Technique: Single frontal view of the chest was obtained Comparison: XY CHEST XRAY 1 VIEW on DOS: 09/11/24, XY CHEST XRAY 1 VIEW on DOS: 09/10/24, XY CHEST XRAY 1 VIEW on DOS: 09/09/24, XY CHEST PORTABLE on DOS: 09/08/24, XY CHEST XRAY 1 VIEW on DOS: 09/07/24, XY CHEST XRAY 1 VIEW on DOS: 09/11/24 FINDINGS: Lines and Tubes: Endotracheal tube and enteric catheter in satisfactory position. Right PICC in satis factory position. Lungs: Multifocal airspace disease. Pleura: No effusion. No pneumothorax. Cardiomediastinal contours: Unremarkable Bones: Unremarkable IMPRESSION: 1. Lines and tubes in satisfactory position. No significant interval change.
[2024-09-12 06:07] LABS: Band Neutrophils % (manual) 3; Eosinophils % (manual) 2 (0-7); Large Platelets FEW; Lymphocytes % (manual) 28 (10.0-50.0); Metamyelocytes % 1; Monocytes % (manual) 8 (0-12); Myelocytes % 1; Platelet Estimate Adequate
[2024-09-12 09:11] LABS: Base Excess 4.8 mmol/L (-2.0-3.0)
[2024-09-12] MEDS: ENOXAPARIN SOD 40 MG/0.4 ML SYRINGE SC SCH (10:46)
[2024-09-12] MEDS: BUMETANIDE 1mg/4ml VIAL (0.25mg/ml) IV ONE (11:26)
[2024-09-12] MEDS ORDERED: ALBUTEROL SULF 2.5 MG/0.5ML(0.5%) NEB SOLN NEB PRN ×2 (12:00→16:00)
[2024-09-12] MEDS: POTASSIUM CHL 20MEQ/100ML 100 ML IV ONE (12:20)
[2024-09-12] MEDS ORDERED: IPRATROPIUM BROM 0.5 MG/2.5ML INH SOL NEB PRN (16:00)
--- NOTE | 2024-09-12 17:22 | DVHPNRES ---
Progress Note Date Seen: Sep 12, 2024 Resident Creating Document: BOZENA TRENT GEOVANNA Has the PT tested + for MRSA If YES, has PT been informed?: Yes Medical Necessity Reason Pt with a Central, PICC or Fol: Yes The following are medically ne: Central Line, Gutierrez Catheter Reason for gutierrez catheter: Strict I&O Subjective Review of Systems his a 34-year-old female with a history of hyperlipidemia (HLD) presented to the emergency department with severe epigastric pain since 1 day before admission. She reported having crampy pain spreading throughout her abdomen, along with nausea, vomiting, and chills. She denies fever, chest pain, shortness of breath, fatigue, and weakness. family history positive for hypertriglyceridemia in paternal side With father affected. Noted previous extensive skin rash/ allergy to fenofibrate and presently on atorvastatin 40 mg daily only. Today, patient seen and examined at the bedside. Patient is more calm in compared to yesterday. CPAP trial performed, weaning criteria includes NIF 50, tidal volume 770, RSBI 50, leak 425 mL, respiratory 25, CPAP trial was successful and the patient was extubated. The patient was put on facemask with 10 L of oxygen could maintain 94% of oxygen saturation. Patient reports: No new complaints, Feels better Changes from previous H/P or p: Changes Objective vital signs Vital Sign Date Time Temp Pulse Resp B/P (MAP) Pulse Ox O2 Delivery O2 Flow Rate FiO2 09/12/24 17:09 190/90 09/12/24 16:20 108 21 09/12/24 14:45 95 09/12/24 14:00 Nasal Cannula* 3 N/A Cool Aerosol 09/12/24 12:00 100.6 100.6 Total Intake and Output 09/11/24 09/11/24 09/12/24 15:00 23:00 07:00 Intake Total 1122.46 ml 1224.28 ml 1168.28 ml Output Total 2750 ml 355 ml 1435 ml Balance -1627.54 ml 869.28 ml -266.72 ml medications Current Medications Medications Dose Ordered Sig/Snow Route Start Time Stop Time Status Last Admin Dose Admin Sodium Chloride 10 ml Q8HR IV 08/14/24 22:00 09/12/24 14:00 10 ML Calcitriol 1 mcg EOD IV 08/17/24 10:00 09/10/24 10:25 1 MCG Sodium Chloride 10 ml QSHIFT@10,22 IV 08/19/24 22:00 09/12/24 10:45 10 ML Insulin Human (Reg)/Sodium Chloride 100 ml 1945 IV 08/21/24 19:45 UNV Acetaminophen 1,000 mg Q6HPRN PRN IV 08/22/24 23:15 09/12/24 12:07 1,000 MG Hydralazine HCl 10 mg Q6HP PRN IV 08/25/24 17:30 09/12/24 17:09 10 MG Diagnostic Test (Pha) 1 strip Q6HR 08/28/24 12:00 09/12/24 12:13 1 STRIP Dextrose 50 ml UD PRN IV 08/28/24 09:15 Artificial Tears 1 drop Q2HP PRN EACHEYE 08/29/24 12:45 09/11/24 17:50 1 DROP Bumetanide 1 mg BIDD IV 09/01/24 18:00 09/12/24 05:50 1 MG Labetalol HCl 250 mg/Sodium Chloride 250 ml @ 60 mls/hr Q4H10M IV 09/02/24 20:00 09/10/24 18:27 60 MLS/HR Linezolid 300 ml @ 150 mls/hr Q12H IV 09/03/24 20:00 09/12/24 08:08 150 MLS/HR Fentanyl Citrate 250 ml @ 2.5 mls/hr Q24H IV 09/04/24 16:30 09/12/24 06:42 55 MLS/HR Pantoprazole Sodium 40 mg BID IV 09/05/24 13:45 09/12/24 10:45 40 MG Hydromorphone HCl 2 mg Q6HPRN PRN IV 09/08/24 10:45 09/12/24 16:20 2 MG Azithromycin 250 ml @ 125 mls/hr DAILY IV 09/09/24 10:00 09/12/24 10:47 125 MLS/HR Haloperidol Lactate 5 mg Q4HPRN PRN IV 09/09/24 12:30 09/12/24 02:16 5 MG Propofol 100 ml @ 2.391 mls/ hr Q24H IV 09/09/24 15:15 09/12/24 05:36 23.91 MLS/HR Enteral Nutritional Formula 1,000 ml 30ML/HR GT 09/10/24 11:30 09/11/24 18:43 1,000 ML Meropenem 50 ml @ 17 mls/hr Q8HR IV 09/11/24 22:00 09/12/24 13:03 17 MLS/HR Enoxaparin Sodium 40 mg DAILY SC 09/12/24 10:00 09/12/24 10:46 40 MG Ketorolac Tromethamine 30 mg Q6HPRN PRN IV 09/11/24 22:15 09/16/24 22:14 09/12/24 14:00 30 MG Albuterol 2.5 mg Q6HP PRN NEB 09/12/24 16:00 Ipratropium [place] 0.5 mg Q6HPRN PRN NEB 09/12/24 16:00 Examination General: RASS 0 to +1 , afebrile, mucosae are moist Cardiovascular: Normal S1 and S2. No murmurs, gallops or rubs Respiratory: Mechanically assisted ventilation, equal bilateral airway entree. Bilateral diffuse crackles Abdomen: Soft, nontender, no organomegaly, normal bowel sounds MSK/skin: Mobilization of limbs cannot be evaluated. Skin is dry and warm. Neurological: Orientation cannot be assessed. No apparent motor no sensitive deficits. Pupils are isocoric and reactive laboratory and microbiology Laboratory Tests 09/12/24 02:59 Test 09/12/24 02:59 Range/Units Serum Glucose 93 74-106 mg/dL Microbiology Date/Time Source Procedure Growth Status 09/07/24 12:49 Stool Stool Culture - Final Complete 09/07/24 12:49 Stool Shiga Toxin I & II - Final Complete 09/04/24 11:21 Bronchial Washings Gram Stain - Final Complete 09/04/24 11:21 Respiratory Culture - Final Presumptive Dariana albicans Complete 09/02/24 18:49 Voided Urine Urine Culture - Final Complete 09/02/24 15:58 Blood Blood Culture - Final NO GROWTH AFTER 5 DAYS OF INCUBATION. Complete 08/15/24 13:32 Nose MRSA Screen - Final Complete Labs and/or images reviewed: Labs reviewed by me, Image(s) reviewed by me Problem List/Assessment/Plan Problem List/Assessment/Plan This a 34-year-old female with a history of hyperlipidemia presented to the emergency department with severe epigastric pain since 1 day before admission. Admitted on 08/14 and intubated on 08/16 NEURO: Acute metabolic encephalopathy, likely due to pancreatitis leading to abdominal compartment syndrome and respiratory failure Patient is sedated and on mechanical ventilation, with RASS score of 0 to +1, despite being on Diprivan, Versed, fentanyl, haloperidol Started rocuronium drip on 09/09 Bilateral eye bulging, artificial tears Pain medication: Fentanyl drip 550, and Dilaudid 2mg q.6 hours as needed CARDIOVASCULAR: Hypertensive urgency, controlled Injection hydralazine 10 mg q.6 hours as needed PULMONARY: Acute hypercapnic/hypoxic respiratory failure due to hypertriglyceridemia induced pancreatitis leading to abdominal compartment syndrome and respiratory failure/pneumonia Pneumonia likely due to Gram-negative Gram-positive bacteria ARDS, likely due to pancreatitis Pleural effusion Bronchoscopy performed on 09/04/2024, there was some secretion on right lower lobe, bronchial lavage of right and left lower bronchi was performed, and the sample was sent for the culture sensitivity, Gram stain and AFB Bilateral pleural effusion with bibasilar atelectasis Blood culture from 09/02/2024 shows no growth ABGs shows respiratory acidosis with pH 7.313 CT scan on 09/05 shows small to moderate left pleural effusion Chest x-rays on 09/10 shows bilateral diffuse infiltration ABGs shows mild respiratory acidosis with metabolic compensation, pH 7.406 Continue linezolid (started on 09/03) azithromycin(started on 09/09) Continue meropenem started on 09/11 Breathing treatment q.4 hours as needed CPAP trial performed, weaning criteria includes NIF -50, tidal volume 770, RSBI 50, leak 425 mL, respiratory 25, CPAP trial was successful and the patient was extubated. The patient was put on facemask with 10 L of oxygen could not maintain 94% of oxygen saturation. PT evaluation Swallowing evaluation GI: Abdominal compartment syndrome, status post decompression status post decompressive laparotomy (08/18/2024) re-exploratory irrigation of abdomen on 08/20/2024 Surgery on the board, recommended conservative management Daily monitoring of intra-abdominal pressure GI evaluated the patient and recommended Dulcolax suppository and stopped Reglan CT abdomen repeated on 09/05 and shows significant peripancreatic fluid/edema with [id number] ascites GI ppx: Protonix b.i.d. RENAL: UTI, likely hemodynamically mediated, improved Continue Bumex 1 mg b.i.d., 1 extra dose of Bumex 1 mg after extubation ID: Meropenem and doxycycline was stopped on 09/02/2024 Blood culture From 09/02/2024 shows no growth after 48 hour Urine culture from 09/02/2024 shows no growth Sputum culture from 08/16 shows beta strep 9 a, non B Bronchial alveolar lavage culture results from 09/04 shows presumptive Dariana albicans Stool results from 09/07 shows Campylobacter antigen Continue linezolid, cefepime and azithromycin Metabolic: Hyponatremia, improved Hypocalcemia, improved, continue calcitriol 1 mcg IV daily Hypophosphatemia, improved Hypomagnesemia, improved Hypokalemia, normalized Hyperkalemia, hypokalemia treatment given, normalized Hypomagnesemia, supplement HEME: Severe anemia, likely due to intra-abdominal bleeding Six pint of blood has been transfused ENDOCRINE: Familiar hypertriglyceridemia Insulin drip has been discontinued Daily triglycerides monitoring Patient is sensitive to fenofibrate LINES/DRAINS/ACCESS: ETT, put on 08/16/24 IV access Right internal jugular vein, placed on 08/16/2024 and removed on 09/09 Right PICC line, placed on 08/20/2024 Transurethral Gutierrez catheter, placed on 08/20/2024 Drips Diprivan 50 Versed 25 Fentanyl 550 Discontinued paralytics DVT prophylaxis Lovenox 40 mg daily Diet: OG tube, Jevity 30 mL/hour Disposition: ICU status, keep in ICU CODE STATUS: Full code Patient's status discussed with the mother and father at the bedside. Critical Care time spent more than 97 minutes, including patient care, chart review, updating the family, CPAP trial, excluding any procedures. Case discussed with Dr. Cochran Plan discussed with: Patient, Other (Parents and RN) My Orders My Orders Orders - BOZENA TRENT RESDIBOB Procedure Category Date Status Time Chest Xray 1 View XY 09/12/24 Resulted 04:00 Enoxaparin Sodium PHA 09/12/24 In Process (Lovenox) 10:00 Abg W/ Co-Ox RT 09/12/24 Logged 05:56 Albuterol Medneb PHA 09/12/24 In Process (Ventolin Medneb) 16:00 Ipratropium Medneb PHA 09/12/24 In Process (Atrovent Medneb) 16:00 Complete Blood Count LAB 09/13/24 Verified 04:00 Comprehensive LAB 09/13/24 Verified Metabolic Panel 04:00 Chest Xray 1 View XY 09/13/24 Logged 04:00 Abg W/ Co-Ox RT 09/13/24 Logged 04:00 Dietary Evaluation Review Comments: 1) Increase TPN to meet at least 75% of estimated needs 2) Advance pt diet when medically feasible to a Low Fat diet 3) Continue current plan of care Expected Outcomes/Goals: 1) Pt diet to advance 2) Pt labs to improve 3) F/U in 2-3 days Date of Service: Sep 12, 2024 Billing Provider: GUS COCHRAN MD Common Visit Codes: [id number] CARE 30-74 MIN, [id number] CARE-EACH +30MIN BOZENA TRENT RESDIENT Sep 12, 2024 17:22 GUS COCHRAN MD Sep 15, 2024 15:17
[2024-09-13] VITALS (52 sets, daily range): BP systolic 121–184; BP diastolic 61–116; PULSE 55–118; RESP 9–91; TEMP 97.6–101.3; O2SAT 94–98
[2024-09-13 04:07] LABS: Alanine Aminotransferase 16 U/L (7-40); Alkaline Phosphatase 79 U/L (46-116); Anion Gap 14 (5-15); BUN/Creatinine Ratio 22.5 (10.0-20.0); Blood Urea Nitrogen 16 mg/dL (9-23); Calcium 9.7 mg/dL (8.7-10.4); Carbon Dioxide 25 mmol/L (20-31); Chloride 100 mmol/L (98-107); Glucose 99 mg/dL (74-106); Potassium 3.7 mmol/L (3.5-5.1); Sodium 139 mmol/L (136-145)
[2024-09-13 04:08] LABS: Albumin 3.7 g/dL (3.2-4.8); Aspartate Aminotransferase 20 U/L (13-40); Bilirubin, Total 0.5 mg/dL (0.2-1.0); Total Protein 6.6 g/dL (5.7-8.2)
[2024-09-13 04:32] LABS: Basophils # (auto) 0.1 10 ^3/uL (0-0.2); Basophils % (auto) 0.7 % (0.0-2.0); Eosinophils # (auto) 0 10 ^3/uL (0-0.8); Eosinophils % (auto) 0.1 % (0.0-7.0); Hematocrit 31.4 % (36.0-46.0); Hemoglobin 10.5 g/dL (12.2-16.2); Lymphocytes # (auto) 1.7 10 ^3/uL (0.4-5.4); Mean Corpuscular Hemoglobin 28.4 pg (28.0-32.0); Mean Corpuscular Hgb Conc. 33.3 g/dL (32.0-36.0); Mean Corpuscular Volume 85.1 fL (80.0-100.0); Monocytes # (auto) 0.8 10 ^3/uL (0-1.3); Monocytes % (auto) 6.3 % (0.0-12.0); Neutrophils # (auto) 9.8 10 ^3/uL (1.6-8.6); Neutrophils % (auto) 78.9 % (37.0-80.0); Nucleated Red Blood Cells % 0.2 %; Platelet Count (auto) 354 10^3/uL (140-450); Red Blood Cells 3.69 10^6/uL (4.0-5.20); Red Cell Distribution Width 14.5 % (11.8-14.3); White Blood Cell 12.4 10^3/uL (4.4-10.8)
--- NOTE | 2024-09-13 05:38 | DVH ---
CHEST RADIOGRAPH Indication: Pneumonia Technique: Single frontal view of the chest was obtained COMPARISON: XY CHEST XRAY 1 VIEW on DOS: 09/12/24, XY CHEST XRAY 1 VIEW on DOS: 09/11/24, XY CHEST XRAY 1 VIEW on DOS: 09/10/24 FINDINGS: Lines and Tubes: Right PICC in satisfactory position. Lungs: Multifocal airspace disease. Pleura: No effusion. No pneumothorax. Cardiomediastinal contours: Unremarkable Bones: Unremarkable IMPRESSION: Interval extubation. No other significant interval change.
[2024-09-13 06:21] LABS: Stomatocytes Moderate
[2024-09-13 06:22] LABS: Large Platelets FEW
[2024-09-13 06:24] LABS: Platelet Estimate Adequa
[2024-09-13] MEDS: LORazepam 2MG/ML-1ML VIAL IV PRN ×2 (10:50→12:14)
[2024-09-13] MEDS: POTASSIUM CHL 20MEQ/100ML 100 ML IV ONE ×2 (12:10→12:15)
[2024-09-13] MEDS: ACETAMINOPHEN IV 1000 MG/100ML (10MG/ML) IV PRN (16:57)
--- NOTE | 2024-09-13 21:32 | DVHPNRES ---
Progress Note Date Seen: Sep 13, 2024 Resident Creating Document: BOZNEA TRENT RESDIENT Has the PT tested + for MRSA If YES, has PT been informed?: Yes Medical Necessity Reason Pt with a Central, PICC or Fol: Yes The following are medically ne: Central Line, Gutierrez Catheter Reason for gutierrez catheter: Strict I&O Subjective Review of Systems his a 34-year-old female with a history of hyperlipidemia (HLD) presented to the emergency department with severe epigastric pain since 1 day before admission. She reported having crampy pain spreading throughout her abdomen, along with nausea, vomiting, and chills. She denies fever, chest pain, shortness of breath, fatigue, and weakness. family history positive for hypertriglyceridemia in paternal side With father affected. Noted previous extensive skin rash/ allergy to fenofibrate and presently on atorvastatin 40 mg daily only. Today, patient seen and examined at the bedside. Patient is calm and lying on the bed with the occasional agitation. Patient extubated yesterday. The patient was put on nasal cannula with 2 L of oxygen could maintain 94% of oxygen saturation. Objective vital signs Vital Sign Date Time Temp Pulse Resp B/P (MAP) Pulse Ox O2 Delivery O2 Flow Rate FiO2 09/13/24 19:50 96 Nasal Cannula 2.0 09/13/24 19:50 28 09/13/24 18:31 89 15 135/67 (89) 09/13/24 18:01 99.6 99.6 Total Intake and Output 09/12/24 09/12/24 09/13/24 15:00 23:00 07:00 Intake Total 693.910 ml 350 ml 17 ml Output Total 1780 ml 1510 ml Balance 693.910 ml -1430 ml -1493 ml medications Current Medications Medications Dose Ordered Sig/Snow Route Start Time Stop Time Status Last Admin Dose Admin Sodium Chloride 10 ml Q8HR IV 08/14/24 22:00 09/13/24 13:21 10 ML Calcitriol 1 mcg EOD IV 08/17/24 10:00 09/10/24 10:25 1 MCG Sodium Chloride 10 ml QSHIFT@10,22 IV 08/19/24 22:00 09/13/24 09:36 10 ML Insulin Human (Reg)/Sodium Chloride 100 ml 1945 IV 08/21/24 19:45 UNV Hydralazine HCl 10 mg Q6HP PRN IV 08/25/24 17:30 09/13/24 09:32 10 MG Diagnostic Test (Pha) 1 strip Q6HR 08/28/24 12:00 09/13/24 18:26 1 STRIP Dextrose 50 ml UD PRN IV 08/28/24 09:15 Artificial Tears 1 drop Q2HP PRN EACHEYE 08/29/24 12:45 09/13/24 14:27 1 DROP Bumetanide 1 mg BIDD IV 09/01/24 18:00 09/13/24 06:00 1 MG Labetalol HCl 250 mg/Sodium Chloride 250 ml @ 60 mls/hr Q4H10M IV 09/02/24 20:00 09/10/24 18:27 60 MLS/HR Linezolid 300 ml @ 150 mls/hr Q12H IV 09/03/24 20:00 09/12/24 20:26 150 MLS/HR Fentanyl Citrate 250 ml @ 2.5 mls/hr Q24H IV 09/04/24 16:30 09/12/24 06:42 55 MLS/HR Pantoprazole Sodium 40 mg BID IV 09/05/24 13:45 09/13/24 09:34 40 MG Hydromorphone HCl 2 mg Q6HPRN PRN IV 09/08/24 10:45 09/13/24 16:47 2 MG Azithromycin 250 ml @ 125 mls/hr DAILY IV 09/09/24 10:00 09/13/24 09:36 125 MLS/HR Haloperidol Lactate 5 mg Q4HPRN PRN IV 09/09/24 12:30 09/13/24 01:44 5 MG Propofol 100 ml @ 2.391 mls/ hr Q24H IV 09/09/24 15:15 09/12/24 05:36 23.91 MLS/HR Enteral Nutritional Formula 1,000 ml 30ML/HR GT 09/10/24 11:30 09/11/24 18:43 1,000 ML Meropenem 50 ml @ 17 mls/hr Q8HR IV 09/11/24 22:00 09/13/24 13:21 17 MLS/HR Enoxaparin Sodium 40 mg DAILY SC 09/12/24 10:00 09/13/24 09:35 40 MG Ketorolac Tromethamine 30 mg Q6HPRN PRN IV 09/11/24 22:15 09/16/24 22:14 Hold 09/13/24 14:54 30 MG Albuterol 2.5 mg Q6HP PRN NEB 09/12/24 16:00 Ipratropium [place] 0.5 mg Q6HPRN PRN NEB 09/12/24 16:00 Lorazepam 5 mg Q3HP PRN IV 09/13/24 11:45 09/13/24 16:59 5 MG Dexmedetomidine HCl 400 mcg/ Dextrose 100 ml @ 3.505 mls/ hr Q24H IV 09/13/24 14:45 09/13/24 17:11 3.505 MLS/HR Acetaminophen 1,000 mg Q4HPRN PRN IV 09/13/24 15:00 09/13/24 16:57 1,000 MG Ibuprofen 400 mg Q6HP PRN PO 09/13/24 15:00 Ondansetron HCl 4 mg Q8HPRN PRN IV 09/13/24 15:45 Examination General: RASS 0 to +1 , afebrile, mucosae are moist Cardiovascular: Normal S1 and S2. No murmurs, gallops or rubs Respiratory: Mechanically assisted ventilation, equal bilateral airway entree. Bilateral diffuse crackles Abdomen: Soft, nontender, no organomegaly, normal bowel sounds MSK/skin: Mobilization of limbs cannot be evaluated. Skin is dry and warm. Neurological: Orientation cannot be assessed. No apparent motor no sensitive deficits. Pupils are isocoric and reactive laboratory and microbiology Laboratory Tests 09/13/24 03:24 Test 09/13/24 03:24 Range/Units Serum Glucose 99 74-106 mg/dL Microbiology Date/Time Source Procedure Growth Status 09/07/24 12:49 Stool Stool Culture - Final Complete 09/07/24 12:49 Stool Shiga Toxin I & II - Final Complete 09/04/24 11:21 Bronchial Washings Gram Stain - Final Complete 09/04/24 11:21 Respiratory Culture - Final Presumptive Dariana albicans Complete 09/02/24 18:49 Voided Urine Urine Culture - Final Complete 09/02/24 15:58 Blood Blood Culture - Final NO GROWTH AFTER 5 DAYS OF INCUBATION. Complete 08/15/24 13:32 Nose MRSA Screen - Final Complete Labs and/or images reviewed: Labs reviewed by me, Image(s) reviewed by me Problem List/Assessment/Plan Problem List/Assessment/Plan This a 34-year-old female with a history of hyperlipidemia presented to the emergency department with severe epigastric pain since 1 day before admission. Admitted on 08/14 and intubated on 08/16 NEURO: Acute metabolic encephalopathy, likely due to pancreatitis leading to abdominal compartment syndrome and respiratory failure Patient is sedated and on mechanical ventilation, with RASS score of 0 to +1, despite being on Diprivan, Versed, fentanyl, haloperidol Started rocuronium drip on 09/09 Bilateral eye bulging, artificial tears Pain medication: Dilaudid 2mg q.6 hours as needed Occasional agitation, injection Ativan 5 mg q.3 hours p.r.n. CARDIOVASCULAR: Hypertensive urgency, controlled Injection hydralazine 10 mg q.6 hours as needed PULMONARY: Acute hypercapnic/hypoxic respiratory failure due to hypertriglyceridemia induced pancreatitis leading to abdominal compartment syndrome and respiratory failure/pneumonia Pneumonia likely due to Gram-negative Gram-positive bacteria ARDS, likely due to pancreatitis Pleural effusion Bronchoscopy performed on 09/04/2024, there was some secretion on right lower lobe, bronchial lavage of right and left lower bronchi was performed, and the sample was sent for the culture sensitivity, Gram stain and AFB Bilateral pleural effusion with bibasilar atelectasis Blood culture from 09/02/2024 shows no growth ABGs shows respiratory acidosis with pH 7.313 CT scan on 09/05 shows small to moderate left pleural effusion Chest x-rays on 09/10 shows bilateral diffuse infiltration ABGs shows mild respiratory acidosis with metabolic compensation, pH 7.406 Continue linezolid (started on 09/03) azithromycin(started on 09/09) Continue meropenem started on 09/11 Breathing treatment q.4 hours as needed Extubated yesterday, maintain oxygen saturation at 92% with 2 L of oxygen through nasal cannula. PT evaluation Swallowing evaluation GI: Abdominal compartment syndrome, status post decompression status post decompressive laparotomy (08/18/2024) re-exploratory irrigation of abdomen on 08/20/2024 Surgery on the board, recommended conservative management Daily monitoring of intra-abdominal pressure GI evaluated the patient and recommended Dulcolax suppository and stopped Reglan CT abdomen repeated on 09/05 and shows significant peripancreatic fluid/edema with [id number] ascites GI ppx: Protonix b.i.d. RENAL: UTI, likely hemodynamically mediated, improved Continue Bumex 1 mg b.i.d., 1 extra dose of Bumex 1 mg after extubation ID: Meropenem and doxycycline was stopped on 09/02/2024 Blood culture From 09/02/2024 shows no growth after 48 hour Urine culture from 09/02/2024 shows no growth Sputum culture from 08/16 shows beta strep 9 a, non B Bronchial alveolar lavage culture results from 09/04 shows presumptive Dariana albicans Stool results from 09/07 shows Campylobacter antigen Continue linezolid, cefepime and azithromycin Raised WBC at 12.4 Panculture By Nasreen at 100.1, injection ibuprofen q.6 hours as needed Metabolic: Hyponatremia, improved Hypocalcemia, improved, continue calcitriol 1 mcg IV daily Hypophosphatemia, improved Hypomagnesemia, improved Hypokalemia, normalized Hyperkalemia, hypokalemia treatment given, normalized Hypomagnesemia, supplement HEME: Severe anemia, likely due to intra-abdominal bleeding Six pint of blood has been transfused ENDOCRINE: Familiar hypertriglyceridemia Insulin drip has been discontinued Daily triglycerides monitoring Patient is sensitive to fenofibrate LINES/DRAINS/ACCESS: ETT, put on 08/16/24 IV access Right internal jugular vein, placed on 08/16/2024 and removed on 09/09 Right PICC line, placed on 08/20/2024 Transurethral Gutierrez catheter, placed on 08/20/2024 Drips Diprivan 50 Versed 25 Fentanyl 550 Discontinued paralytics DVT prophylaxis Lovenox 40 mg daily Diet: NPO Swallow evaluation Disposition: ICU status, keep in ICU CODE STATUS: Full code Patient's status discussed with the mother and father at the bedside. Critical Care time spent more than 73 minutes, including patient care, chart review, updating the family, excluding any procedures. Case discussed with Dr. Bang Plan discussed with: Patient, Other (Parents and RN) My Orders My Orders Orders - BOZENA TRENT RESDIBOB Procedure Category Date Status Time Pt Request For Service PT 09/13/24 Logged 09:14 * Swallow Request ST 09/13/24 Transmitted 09:14 Ondansetron Hcl PHA 09/13/24 In Process (Zofran) 15:45 Urine Bacterial HEIDE 09/13/24 Logged Culture 15:36 Blood Culture EHIDE 09/13/24 In Process 15:36 Respiratory Culture HEIDE 09/13/24 Logged W/ Gs 15:36 Comprehensive LAB 09/14/24 Verified Metabolic Panel 04:00 Complete Blood Count LAB 09/14/24 Verified 04:00 Chest Xray 1 View XY 09/14/24 Logged 04:00 Abg W/ Co-Ox RT 09/14/24 Logged 04:00 Dietary Evaluation Review Comments: 1) Increase TPN to meet at least 75% of estimated needs 2) Advance pt diet when medically feasible to a Low Fat diet 3) Continue current plan of care Expected Outcomes/Goals: 1) Pt diet to advance 2) Pt labs to improve 3) F/U in 2-3 days Date of Service: Sep 13, 2024 Billing Provider: DARWIN BANG MD Common Visit Codes: [id number] CARE 30-74 MIN BOZENA TRENT RESDIENT Sep 13, 2024 21:32 DARWIN BANG MD Sep 20, 2024 14:44
[2024-09-14] VITALS (56 sets, daily range): BP systolic 119–168; BP diastolic 53–112; PULSE 54–136; RESP 10–37; TEMP 98.8–101.1; O2SAT 89–98
[2024-09-14 03:56] LABS: Basophils # (auto) 0.1 10 ^3/uL (0-0.2); Basophils % (auto) 1.1 % (0.0-2.0); Eosinophils # (auto) 0 10 ^3/uL (0-0.8); Eosinophils % (auto) 0.1 % (0.0-7.0); Hematocrit 27.8 % (36.0-46.0); Hemoglobin 9.6 g/dL (12.2-16.2); Lymphocytes # (auto) 1.7 10 ^3/uL (0.4-5.4); Lymphocytes % (auto) 20.8 % (10.0-50.0); Mean Corpuscular Hemoglobin 29.3 pg (28.0-32.0); Mean Corpuscular Hgb Conc. 34.7 g/dL (32.0-36.0); Mean Corpuscular Volume 84.5 fL (80.0-100.0); Monocytes # (auto) 0.9 10 ^3/uL (0-1.3); Monocytes % (auto) 11.2 % (0.0-12.0); Neutrophils # (auto) 5.6 10 ^3/uL (1.6-8.6); Neutrophils % (auto) 66.8 % (37.0-80.0); Nucleated Red Blood Cells % 0.1 %; Platelet Count (auto) 332 10^3/uL (140-450); Red Blood Cells 3.29 10^6/uL (4.0-5.20); Red Cell Distribution Width 14.3 % (11.8-14.3); White Blood Cell 8.4 10^3/uL (4.4-10.8)
[2024-09-14 04:04] LABS: Alanine Aminotransferase 14 U/L (7-40); Albumin 3.6 g/dL (3.2-4.8); Alkaline Phosphatase 68 U/L (46-116); Anion Gap 11 (5-15); Aspartate Aminotransferase 15 U/L (13-40); BUN/Creatinine Ratio 35.8 (10.0-20.0); Bilirubin, Total 0.4 mg/dL (0.2-1.0); Calcium 9.8 mg/dL (8.7-10.4); Carbon Dioxide 30 mmol/L (20-31); Chloride 101 mmol/L (98-107); Sodium 142 mmol/L (136-145); Total Protein 6.6 g/dL (5.7-8.2)
[2024-09-14 04:16] LABS: Blood Urea Nitrogen 24 mg/dL (9-23); Glucose 118 mg/dL (74-106); Potassium 3.1 mmol/L (3.5-5.1)
--- NOTE | 2024-09-14 04:18 | DVH ---
CHEST RADIOGRAPH Indication: Pneumonia Technique: Single frontal view of the chest was obtained Comparison: XY CHEST XRAY 1 VIEW on DOS: 09/13/24, XY CHEST XRAY 1 VIEW on DOS: 09/12/24, XY CHEST XRAY 1 VIEW on DOS: 09/11/24 IMPRESSION: There are low lung volumes with stable elevation of the right hemidiaphragm. [id number] pulmon eleanor vascular congestion, mildly increased. No sizable effusion or pneumothorax. Right PICC line appea rs unchanged.
[2024-09-14] MEDS: ONDANSETRON HCL 4 MG/2 ML VIAL IV PRN (08:22)
[2024-09-14] MEDS: POTASSIUM CHL 20MEQ/100ML 100 ML IV SCH ×2 (08:50→17:59)
--- NOTE | 2024-09-14 16:22 | DVHPN2 ---
Subjective his a 34-year-old female with a history of hyperlipidemia (HLD) presented to the emergency department with severe epigastric pain since 1 day before admission. She reported having crampy pain spreading throughout her abdomen, along with nausea, vomiting, and chills. She denies fever, chest pain, shortness of breath, fatigue, and weakness. family history positive for hypertriglyceridemia in paternal side With father affected. Noted previous extensive skin rash/ allergy to fenofibrate and presently on atorvastatin 40 mg daily only. Today, patient seen and examined at the bedside. Patient is calm and lying on the bed with the occasional agitation. has been extubated before Reviewed: Care Plan, H&P, Labs, Medications, Previous Orders, Radiology, Other Changes from previous H/P or p: No Changes Objective Vitals Vital Signs Date Time Temp Pulse Resp B/P (MAP) Pulse Ox O2 Delivery O2 Flow Rate FiO2 09/14/24 15:15 175/79 09/14/24 14:30 56 17 96 09/14/24 13:55 Nasal Cannula* 4 36 09/14/24 12:00 100.6 100.6 Intake/Output Intake and Output 09/14/24 05:00 Intake Total 762.590 ml Output Total 2545 ml Balance -1782.410 ml Intake Oral 0 ml IV Total 762.590 ml Output Urine Total 1950 ml Stool Total 375 ml Drainage Total 220 ml # Bowel Movements 3 General Appearance: Other (Intubated and sedated) HEENT: Atraumatic Lungs: Other (Mechanical ventilation sounds) Cardiovascular: Regular rate, Normal S1, Normal S2 Abdomen: Other (Serosanguineous fluid in SOLIS drains; hypoactive bowel sounds) Genitourinary: Other (Sparrow's) Neuro: Other (Intubated and sedated) Psych/Mental Status: Other (Intubated and sedated) Medications Current Medications Medications Dose Ordered Sig/Snow Route Start Time Stop Time Status Last Admin Dose Admin Sodium Chloride 10 ml Q8HR IV 08/14/24 22:00 09/14/24 13:57 10 ML Calcitriol 1 mcg EOD IV 08/17/24 10:00 09/14/24 09:44 1 MCG Sodium Chloride 10 ml QSHIFT@10,22 IV 08/19/24 22:00 09/14/24 09:37 10 ML Insulin Human (Reg)/Sodium Chloride 100 ml 5 IV 08/21/24 19:45 UNV Hydralazine HCl 10 mg Q6HP PRN IV 08/25/24 17:30 09/14/24 15:07 10 MG Diagnostic Test (Pha) 1 strip Q6HR 08/28/24 12:00 09/14/24 12:30 1 STRIP Dextrose 50 ml UD PRN IV 08/28/24 09:15 Artificial Tears 1 drop Q2HP PRN EACHEYE 08/29/24 12:45 09/13/24 14:27 1 DROP Bumetanide 1 mg BIDD IV 09/01/24 18:00 09/13/24 20:53 1 MG Labetalol HCl 250 mg/Sodium Chloride 250 ml @ 60 mls/hr Q4H10M IV 09/02/24 20:00 09/10/24 18:27 60 MLS/HR Linezolid 300 ml @ 150 mls/hr Q12H IV 09/03/24 20:00 09/13/24 20:52 150 MLS/HR Fentanyl Citrate 250 ml @ 2.5 mls/hr Q24H IV 09/04/24 16:30 09/12/24 06:42 55 MLS/HR Pantoprazole Sodium 40 mg BID IV 09/05/24 13:45 09/14/24 09:36 40 MG Hydromorphone HCl 2 mg Q6HPRN PRN IV 09/08/24 10:45 09/14/24 03:04 2 MG Azithromycin 250 ml @ 125 mls/hr DAILY IV 09/09/24 10:00 09/14/24 09:37 125 MLS/HR Haloperidol Lactate 5 mg Q4HPRN PRN IV 09/09/24 12:30 09/13/24 01:44 5 MG Propofol 100 ml @ 2.391 mls/ hr Q24H IV 09/09/24 15:15 09/12/24 05:36 23.91 MLS/HR Enteral Nutritional Formula 1,000 ml 30ML/HR GT 09/10/24 11:30 09/11/24 18:43 1,000 ML Meropenem 50 ml @ 17 mls/hr Q8HR IV 09/11/24 22:00 09/14/24 13:56 17 MLS/HR Enoxaparin Sodium 40 mg DAILY SC 09/12/24 10:00 09/14/24 09:36 40 MG Ketorolac Tromethamine 30 mg Q6HPRN PRN IV 09/11/24 22:15 09/16/24 22:14 Hold 09/13/24 14:54 30 MG Albuterol 2.5 mg Q6HP PRN NEB 09/12/24 16:00 Ipratropium [place] 0.5 mg Q6HPRN PRN NEB 09/12/24 16:00 Lorazepam 5 mg Q3HP PRN IV 09/13/24 11:45 09/14/24 09:35 5 MG Dexmedetomidine HCl 400 mcg/ Dextrose 100 ml @ 3.505 mls/ hr Q24H IV 09/13/24 14:45 09/14/24 10:36 5.258 MLS/HR Acetaminophen 1,000 mg Q4HPRN PRN IV 09/13/24 15:00 09/14/24 12:31 1,000 MG Ibuprofen 400 mg Q6HP PRN PO 09/13/24 15:00 Ondansetron HCl 4 mg Q8HPRN PRN IV 09/13/24 15:45 09/14/24 08:22 4 MG Potassium Chloride 100 ml @ 50 mls/hr Q2H IV 09/14/24 18:00 09/14/24 21:59 Laboratory Results Laboratory Tests 09/14/24 03:24 Chemistry Test 09/14/24 03:24 Albumin 3.6 g/dL (3.2-4.8) Calcium Level 9.8 mg/dL (8.7-10.4) Total Protein 6.6 g/dL (5.7-8.2) Lipid panel Test 09/13/24 16:43 Triglycerides Level 307 mg/dL (< 150) H LFT Test 09/14/24 03:24 Alanine Aminotransferase (ALT) 14 U/L (7-40) Alkaline Phosphatase 68 U/L (46-116) Aspartate Amino Transferase (AST) 15 U/L (13-40) Total Bilirubin 0.4 mg/dL (0.2-1.0) Urinalysis Test 08/14/24 12:07 08/16/24 12:55 Urine Color Colorless (Yellow) Urine Clarity Clear (Clear) Urine pH 5.5 (5.0-9.0) Urine Specific [place] 1.013 (1.001-1.035) Urine Protein Negative (Negative) Urine Ketones Negative (Negative) Urine Blood 1+ /uL (Negative) H Urine Nitrite Negative (Negative) Urine Bilirubin Negative (Negative) Urine Urobilinogen Normal mg/dL (Negative) Urine Leukocyte Esterase Negative /uL (Negative) Urine RBC 3 /hpf (0 - 4) Urine WBC <1 /hpf (0 - 5) Urine Squamous Epithelial Cells Few /hpf (<5) Urine Bacteria Few /hpf (None Seen) H Urine Glucose Normal mg/dL (Normal) Urine Creatinine 242.96 mg/dL (30.0-125.0) H Urine Protein/Creatinine Ratio 1.09 Urine Sodium 13 mmol/L (40-220) L Urine Total Protein 265.4 mg/dL (1-14) H Microbiology Microbiology Date/Time Source Procedure Growth Status 09/07/24 12:49 Stool Stool Culture - Final Complete 09/07/24 12:49 Stool Shiga Toxin I & II - Final Complete 09/04/24 11:21 Bronchial Washings Gram Stain - Final Complete 09/04/24 11:21 Respiratory Culture - Final Presumptive Dariana albicans Complete 09/02/24 18:49 Voided Urine Urine Culture - Final Complete 09/02/24 15:58 Blood Blood Culture - Final NO GROWTH AFTER 5 DAYS OF INCUBATION. Complete 08/15/24 13:32 Nose MRSA Screen - Final Complete Assessment/Plan Assessment/Plan This a 34-year-old female with a history of hyperlipidemia presented to the emergency department with severe epigastric pain since 1 day before admission. Admitted on 08/14 and intubated on 08/16 NEURO: Acute metabolic encephalopathy, likely due to pancreatitis leading to abdominal compartment syndrome and respiratory failure Patient is sedated and on mechanical ventilation, with RASS score of 0 to +1, despite being on Diprivan, Versed, fentanyl, haloperidol Started rocuronium drip on 09/09 Bilateral eye bulging, artificial tears Pain medication: Dilaudid 2mg q.6 hours as needed Occasional agitation, injection Ativan 5 mg q.3 hours p.r.n. CARDIOVASCULAR: Hypertensive urgency, controlled Injection hydralazine 10 mg q.6 hours as needed PULMONARY: Acute hypercapnic/hypoxic respiratory failure due to hypertriglyceridemia induced pancreatitis leading to abdominal compartment syndrome and respiratory failure/pneumonia Pneumonia likely due to Gram-negative Gram-positive bacteria ARDS, likely due to pancreatitis Pleural effusion Bronchoscopy performed on 09/04/2024, there was some secretion on right lower lobe, bronchial lavage of right and left lower bronchi was performed, and the sample was sent for the culture sensitivity, Gram stain and AFB Bilateral pleural effusion with bibasilar atelectasis Blood culture from 09/02/2024 shows no growth ABGs shows respiratory acidosis with pH 7.313 CT scan on 09/05 shows small to moderate left pleural effusion Chest x-rays on 09/10 shows bilateral diffuse infiltration ABGs shows mild respiratory acidosis with metabolic compensation, pH 7.406 Continue linezolid (started on 09/03) azithromycin(started on 09/09) Continue meropenem started on 09/11 Breathing treatment q.4 hours as needed Extubated yesterday, maintain oxygen saturation at 92% with 2 L of oxygen through nasal cannula. PT evaluation Swallowing evaluation GI: Abdominal compartment syndrome, status post decompression status post decompressive laparotomy (08/18/2024) re-exploratory irrigation of abdomen on 08/20/2024 Surgery on the board, recommended conservative management Daily monitoring of intra-abdominal pressure GI evaluated the patient and recommended Dulcolax suppository and stopped Reglan CT abdomen repeated on 09/05 and shows significant peripancreatic fluid/edema with [id number] ascites GI ppx: Protonix b.i.d. RENAL: UTI, likely hemodynamically mediated, improved Continue Bumex 1 mg b.i.d., 1 extra dose of Bumex 1 mg after extubation ID: Meropenem and doxycycline was stopped on 09/02/2024 Blood culture From 09/02/2024 shows no growth after 48 hour Urine culture from 09/02/2024 shows no growth Sputum culture from 08/16 shows beta strep 9 a, non B Bronchial alveolar lavage culture results from 09/04 shows presumptive Dariana albicans Stool results from 09/07 shows Campylobacter antigen Continue linezolid, cefepime and azithromycin. No linezolid in the hospital for now due to shortage Raised WBC at 12.4 Panculture By Nasreen at 100.1, injection ibuprofen q.6 hours as needed new fever>panculture today Metabolic: Hyponatremia, improved Hypocalcemia, improved, continue calcitriol 1 mcg IV daily Hypophosphatemia, improved Hypomagnesemia, improved Hypokalemia, normalized Hyperkalemia, hypokalemia treatment given, normalized Hypomagnesemia, supplement HEME: Severe anemia, likely due to intra-abdominal bleeding Six pint of blood has been transfused ENDOCRINE: Familiar hypertriglyceridemia Insulin drip has been discontinued Daily triglycerides monitoring Patient is sensitive to fenofibrate LINES/DRAINS/ACCESS: ETT, put on 08/16/24 IV access Right internal jugular vein, placed on 08/16/2024 and removed on 09/09 Right PICC line, placed on 08/20/2024 Transurethral [place] catheter, placed on 08/20/2024 Drips Diprivan 50 Versed 25 Fentanyl 550 Discontinued paralytics DVT prophylaxis Lovenox 40 mg daily Diet: NPO Swallow evaluation Disposition: ICU status, keep in ICU CODE STATUS: Full code Patient's status discussed with the mother and father at the bedside. Critical Care time spent more than 73 minutes, including patient care, chart review, updating the family, excluding any procedures. Plan discussed with: Other (mother) My Orders Orders - ARLETTE FAUST MD Procedure Category Date Status Time Blood Culture HEIDE 09/14/24 In Process 13:35 Mechanical Soft Diet DIET 09/14/24 Transmitted Dinner Date of Service: Sep 14, 2024 Billing Provider: ARLETTE FAUST MD Common Visit Codes: [id number] CARE 30-74 MIN ARLETTE FAUST MD Sep 14, 2024 16:22
[2024-09-14] MEDS: SALINE 0.65 % NASAL SPRAY 45ML BOTTLE EACHNOSTRI PRN (18:16)
[2024-09-14] MEDS: KETOROLAC TROMETH 30 MG/ML 1ML VIAL IV ONE (19:15)
--- NOTE | 2024-09-14 22:06 | DVHPN2 ---
Progress Note - Dictate Date Seen: Sep 14, 2024 Has the PT tested + for MRSA If YES, has PT been informed?: Yes Medical Necessity Reason Pt with a Central, PICC or Fol: Yes The following are medically ne: Central Line, Gutierrez Catheter Reason for gutierrez catheter: Strict I&O Subjective Patient seen and examined at bedside. S/p extubation, on supplemental oxygen Overnight events reviewed. vital signs Vital Sign Date Time Temp Pulse Resp B/P (MAP) Pulse Ox O2 Delivery O2 Flow Rate FiO2 09/14/24 18:30 67 16 152/74 (100) 98 09/14/24 17:35 Nasal Cannula* 4 36 09/14/24 12:00 100.6 100.6 Total Intake and Output 09/13/24 09/13/24 09/14/24 15:00 23:00 07:00 Intake Total 318 ml 396.042 ml 59.064 ml Output Total 1035 ml 1750 ml Balance 318 ml -638.958 ml -1690.936 ml medications Current Medications Medications Dose Ordered Sig/Snow Route Start Time Stop Time Status Last Admin Dose Admin Sodium Chloride 10 ml Q8HR IV 08/14/24 22:00 09/14/24 13:57 10 ML Calcitriol 1 mcg EOD IV 08/17/24 10:00 09/14/24 09:44 1 MCG Sodium Chloride 10 ml QSHIFT@10,22 IV 08/19/24 22:00 09/14/24 09:37 10 ML Insulin Human (Reg)/Sodium Chloride 100 ml 1945 IV 08/21/24 19:45 UNV Hydralazine HCl 10 mg Q6HP PRN IV 08/25/24 17:30 09/14/24 15:07 10 MG Diagnostic Test (Pha) 1 strip Q6HR 08/28/24 12:00 09/14/24 17:39 1 STRIP Dextrose 50 ml UD PRN IV 08/28/24 09:15 Artificial Tears 1 drop Q2HP PRN EACHEYE 08/29/24 12:45 09/13/24 14:27 1 DROP Bumetanide 1 mg BIDD IV 09/01/24 18:00 09/14/24 17:48 1 MG Labetalol HCl 250 mg/Sodium Chloride 250 ml @ 60 mls/hr Q4H10M IV 09/02/24 20:00 09/10/24 18:27 60 MLS/HR Linezolid 300 ml @ 150 mls/hr Q12H IV 09/03/24 20:00 09/13/24 20:52 150 MLS/HR Fentanyl Citrate 250 ml @ 2.5 mls/hr Q24H IV 09/04/24 16:30 09/12/24 06:42 55 MLS/HR Pantoprazole Sodium 40 mg BID IV 09/05/24 13:45 09/14/24 09:36 40 MG Hydromorphone HCl 2 mg Q6HPRN PRN IV 09/08/24 10:45 09/14/24 17:44 2 MG Azithromycin 250 ml @ 125 mls/hr DAILY IV 09/09/24 10:00 09/14/24 09:37 125 MLS/HR Haloperidol Lactate 5 mg Q4HPRN PRN IV 09/09/24 12:30 09/13/24 01:44 5 MG Propofol 100 ml @ 2.391 mls/ hr Q24H IV 09/09/24 15:15 09/12/24 05:36 23.91 MLS/HR Enteral Nutritional Formula 1,000 ml 30ML/HR GT 09/10/24 11:30 09/11/24 18:43 1,000 ML Meropenem 50 ml @ 17 mls/hr Q8HR IV 09/11/24 22:00 09/14/24 13:56 17 MLS/HR Enoxaparin Sodium 40 mg DAILY SC 09/12/24 10:00 09/14/24 09:36 40 MG Ketorolac Tromethamine 30 mg Q6HPRN PRN IV 09/11/24 22:15 09/16/24 22:14 Hold 09/13/24 14:54 30 MG Albuterol 2.5 mg Q6HP PRN NEB 09/12/24 16:00 Ipratropium [place] 0.5 mg Q6HPRN PRN NEB 09/12/24 16:00 Lorazepam 5 mg Q3HP PRN IV 09/13/24 11:45 09/14/24 09:35 5 MG Dexmedetomidine HCl 400 mcg/ Dextrose 100 ml @ 3.505 mls/ hr Q24H IV 09/13/24 14:45 09/14/24 10:36 5.258 MLS/HR Acetaminophen 1,000 mg Q4HPRN PRN IV 09/13/24 15:00 09/14/24 12:31 1,000 MG Ibuprofen 400 mg Q6HP PRN PO 09/13/24 15:00 Ondansetron HCl 4 mg Q8HPRN PRN IV 09/13/24 15:45 09/14/24 17:24 4 MG Sodium Chloride 1 spr TID PRN EACHNOSTRI 09/14/24 17:00 09/14/24 18:16 1 SPR objective Gen.: Patient lying in bed in no apparent distress. On supplemental oxygen. Head: Normocephalic, atraumatic. Eyes: EOMI/PERRLA. Ears: Normal hearing. Normal anatomy. Neck/trachea: Trachea midline, supple. Nose: Normal external anatomy. Mouth: Moist mucous membranes. Chest: Decreased air entry bilaterally. No wheezing or rhonchi. Cardiovascular: Positive S1, positive S2. Regular rate and rhythm. Abdomen: Positive bowel sounds in all 4 quadrants. Soft, non-tender, non- distended. : Deferred. Rectal: Deferred. Skin: Warm, dry. Intact. Extremities: 2+ radial pulses bilaterally. No lower extremity edema. Neuro: Awake, alert, oriented x3. No gross motor or sensory deficits. Cranial nerves II through XII intact. Gait not assessed. laboratory and microbiology Laboratory Tests 09/14/24 03:24 Test 09/14/24 03:24 Range/Units Serum Glucose 118 H 74-106 mg/dL Assessment/Plan Impression: Acute hypoxic respiratory failure On mechanical ventilator Hypertriglyceridemia induced acute pancreatitis Hypocalcemia Hypophosphatemia Peritonitis Acute abdomen Ascites Hyponatremia due to hypotonic IV fluid Vitamin-D deficiency Hypomagnesemia Hyperparathyroidism immune Latter day diffuse plasmapheresis Lactic acidosis, improving Events: ABG reviewed, compensated. On vent support at RR 24, VT 500, PEEP 8, FiO2 30% WBC within normal limits. Monitor hemoglobin Precedex drip PRN Continue antibiotics Potassium supplementation Monitor renal function. TPN for nutritional support IV fluids with D5-NS. Wound care Diurese w/ Bumex as tolerated Monitor renal function Patient is s/p extubation On supplemental O2 at 2 LPM NC Taper O2 as tolerated Labs and imaging reviewed. Rest of plan as noted below. Plan: S/p extubation On supplemental O2 at 2 LPM NC Titrate to keep O2 sats above 92%. Pressors for hemodynamic support if necessary. Keep MAP above 65 mmHg/SBP above 90 mmHg. Continue antibiotics. F/u cultures. Monitor renal function due to Acute kidney injury. Monitor electrolytes. Supplement as necessary. Continue IV fluids Abdomen was severely distended. Limited ultrasound of the abdomen revealed no pocket amenable for paracentesis. Recommended for RN to check bladder pressure every 6 hours. Currently it was 16 mmHg. Surgery recommendations appreciated - we will consider emergent surgery if abdominal pressures exceeding 25 mmHg. Patient s/p surgical procedure to decompress abdomen on 08/26. GI/DVT prophylaxis. Condition: Critical Prognosis: Poor given multiple comorbidities. Rest of plan per hospitalist and other consultants. A total of 35 minutes of critical care time was spent reviewing the patient record, examining the patient, making a diagnostic and therapeutic plan, discussing this plan with the medical personnel, following up on diagnostic studies and following the patient for clinical stability excluding any and all procedures. At least 50% of this time was spent in direct, [id number] contact. Thank you Dr. Bedolla for allowing me to participate in this patient's care. Further recommendations will depend on patient's clinical course. Please do not hesitate to contact me if you have any questions or concerns. This medical document was created using an electronic medical record system with [employer] dictation system. Although this document has been carefully reviewed, there may still be some phonetic and typographical errors. These areas are purely typographical due to imperfections of the software programs, and do not reflect any compromise in the patient's medical care. Dietary Evaluation Review Comments: 1) Increase TPN to meet at least 75% of estimated needs 2) Advance pt diet when medically feasible to a Low Fat diet 3) Continue current plan of care Expected Outcomes/Goals: 1) Pt diet to advance 2) Pt labs to improve 3) F/U in 2-3 days Plan discussed with: Other (ANDRES Aleman) Critical Care Time(min): 35 JUDE REN MD Sep 14, 2024 22:06
[2024-09-15] VITALS (41 sets, daily range): BP systolic 115–172; BP diastolic 53–93; PULSE 54–89; RESP 10–33; TEMP 98.9–100.7; O2SAT 88–97
[2024-09-15 04:24] LABS: Basophils # (auto) 0.1 10 ^3/uL (0-0.2); Basophils % (auto) 1.2 % (0.0-2.0); Eosinophils # (auto) 0 10 ^3/uL (0-0.8); Eosinophils % (auto) 0.3 % (0.0-7.0); Hematocrit 29.7 % (36.0-46.0); Lymphocytes % (auto) 28.5 % (10.0-50.0); Mean Corpuscular Hemoglobin 28.5 pg (28.0-32.0); Mean Corpuscular Hgb Conc. 33.5 g/dL (32.0-36.0); Monocytes # (auto) 0.8 10 ^3/uL (0-1.3); Monocytes % (auto) 11.7 % (0.0-12.0); Neutrophils # (auto) 4.2 10 ^3/uL (1.6-8.6); Neutrophils % (auto) 58.3 % (37.0-80.0); Nucleated Red Blood Cells % 0.1 %; Platelet Count (auto) 315 10^3/uL (140-450); Red Blood Cells 3.49 10^6/uL (4.0-5.20); Red Cell Distribution Width 14.1 % (11.8-14.3); White Blood Cell 7.2 10^3/uL (4.4-10.8)
[2024-09-15 04:47] LABS: Alanine Aminotransferase 14 U/L (7-40); Albumin 3.6 g/dL (3.2-4.8); Alkaline Phosphatase 61 U/L (46-116); Anion Gap 9 (5-15); BUN/Creatinine Ratio 35.9 (10.0-20.0); Blood Urea Nitrogen 23 mg/dL (9-23); Calcium 9.8 mg/dL (8.7-10.4); Carbon Dioxide 29 mmol/L (20-31); Chloride 104 mmol/L (98-107); Potassium 3.7 mmol/L (3.5-5.1); Sodium 142 mmol/L (136-145)
[2024-09-15 04:48] LABS: Bilirubin, Total 0.4 mg/dL (0.2-1.0); Total Protein 6.5 g/dL (5.7-8.2)
[2024-09-15 05:23] LABS: Aspartate Aminotransferase 11 U/L (13-40); Glucose 107 mg/dL (74-106); Triglycerides 289 mg/dL (< 150)
--- NOTE | 2024-09-15 08:18 | DVHPN2 ---
Progress Note Date Seen: Sep 15, 2024 Has the PT tested + for MRSA If YES, has PT been informed?: Yes Medical Necessity Reason Pt with a Central, PICC or Fol: Yes The following are medically ne: Central Line, Gutierrez Catheter Reason for gutierrez catheter: Strict I&O Objective vital signs Vital Sign Date Time Temp Pulse Resp B/P (MAP) Pulse Ox O2 Delivery O2 Flow Rate FiO2 09/15/24 06:18 152/71 09/15/24 06:00 16 95 Nasal Cannula* 4 36 09/15/24 06:00 100.0 62 100.0 Total Intake and Output 09/14/24 09/14/24 09/15/24 15:00 23:00 07:00 Intake Total 660.064 ml 376.064 ml 170.806 ml Output Total 1385 ml 945 ml Balance 660.064 ml -1008.936 ml -774.194 ml medications Current Medications Medications Dose Ordered Sig/Snow Route Start Time Stop Time Status Last Admin Dose Admin Sodium Chloride 10 ml Q8HR IV 08/14/24 22:00 09/15/24 06:18 10 ML Calcitriol 1 mcg EOD IV 08/17/24 10:00 09/14/24 09:44 1 MCG Sodium Chloride 10 ml QSHIFT@, IV 08/19/24 22:00 09/14/24 22:40 10 ML Insulin Human (Reg)/Sodium Chloride 100 ml 1945 IV 08/21/24 19:45 UNV Hydralazine HCl 10 mg Q6HP PRN IV 08/25/24 17:30 09/14/24 15:07 10 MG Diagnostic Test (Pha) 1 strip Q6HR 08/28/24 12:00 09/15/24 06:18 1 STRIP Dextrose 50 ml UD PRN IV 08/28/24 09:15 Artificial Tears 1 drop Q2HP PRN EACHEYE 08/29/24 12:45 09/13/24 14:27 1 DROP Bumetanide 1 mg BIDD IV 09/01/24 18:00 09/15/24 06:18 1 MG Labetalol HCl 250 mg/Sodium Chloride 250 ml @ 60 mls/hr Q4H10M IV 09/02/24 20:00 09/10/24 18:27 60 MLS/HR Linezolid 300 ml @ 150 mls/hr Q12H IV 09/03/24 20:00 09/13/24 20:52 150 MLS/HR Fentanyl Citrate 250 ml @ 2.5 mls/hr Q24H IV 09/04/24 16:30 09/12/24 06:42 55 MLS/HR Pantoprazole Sodium 40 mg BID IV 09/05/24 13:45 09/14/24 22:39 40 MG Hydromorphone HCl 2 mg Q6HPRN PRN IV 09/08/24 10:45 09/14/24 17:44 2 MG Azithromycin 250 ml @ 125 mls/hr DAILY IV 09/09/24 10:00 09/14/24 09:37 125 MLS/HR Haloperidol Lactate 5 mg Q4HPRN PRN IV 09/09/24 12:30 09/13/24 01:44 5 MG Propofol 100 ml @ 2.391 mls/ hr Q24H IV 09/09/24 15:15 09/12/24 05:36 23.91 MLS/HR Enteral Nutritional Formula 1,000 ml 30ML/HR GT 09/10/24 11:30 09/11/24 18:43 1,000 ML Meropenem 50 ml @ 17 mls/hr Q8HR IV 09/11/24 22:00 09/15/24 06:18 17 MLS/HR Enoxaparin Sodium 40 mg DAILY SC 09/12/24 10:00 09/14/24 09:36 40 MG Ketorolac Tromethamine 30 mg Q6HPRN PRN IV 09/11/24 22:15 09/16/24 22:14 Hold 09/13/24 14:54 30 MG Albuterol 2.5 mg Q6HP PRN NEB 09/12/24 16:00 Ipratropium [place] 0.5 mg Q6HPRN PRN NEB 09/12/24 16:00 Lorazepam 5 mg Q3HP PRN IV 09/13/24 11:45 09/14/24 23:40 5 MG Dexmedetomidine HCl 400 mcg/ Dextrose 100 ml @ 3.505 mls/ hr Q24H IV 09/13/24 14:45 09/14/24 10:36 5.258 MLS/HR Acetaminophen 1,000 mg Q4HPRN PRN IV 09/13/24 15:00 127/24 23:40 1,000 MG Ibuprofen 400 mg Q6HP PRN PO 09/13/24 15:00 Ondansetron HCl 4 mg Q8HPRN PRN IV 09/13/24 15:45 09/14/24 17:24 4 MG Sodium Chloride 1 spr TID PRN EACHNOSTRI 09/14/24 17:00 09/14/24 18:16 1 SPR laboratory and microbiology Laboratory Tests 09/15/24 03:12 Test 09/15/24 03:12 Range/Units Serum Glucose 107 H 74-106 mg/dL Problem List/Assessment/Plan Problem List/Assessment/Plan 08/19/24 ABDOMINAL PRESXURE IMPROVED, DRESSING DRY, SEROUS DRAINAGE, WILL TAKE TO O.R. MONDAY TO LAVAGE AND RE DRESS, POSSIBLY PLACE FASCIAL SUTURES 08/22/24 ABDOMEN LESS TENSE, DRESSING APPLIED, WILL CONSIDER CLOSURE OF ABDOMEN SOON. 08/23/24 abdomen still quite tense, leukocytosis, fever, urine output adequate, needs to have abdominal pressure determined q 6 hours(informed nurse), possibly return to OR on Monday to close the abdomen if pressures normal. 08/25/24 ABDOMINAL PRESSURE 7, LEUKOCYTOSIS AND FEVER PERSIST, WILL ATTEMPT ABDOMINAL CLOSURE TOMORROW 08/27/24 FEBRILE, ELEVATED WBC, ABDOMEN NONDISTENDED, GOOD URINE OUTPUT, DRESSING DRY 08/28/24 PATIENT'S MOTHER AT BEDSIDE, QUESTIONS ANSWERED, ABDOMEN LESS TENSE, PRESSURE 20, WOUND CLEAN AND WELL APPROXIMATED, KEEP ON ROCURONIUM DRIP TILL ABDOMINAL PRESSURES LESS THAN 15, GOOD URINE OUTPUT 08/29/24 wound clean and well approximated, drainage serous, decreasing volume, labs reviewed, no changes indicated 08/30/24 slow but noticeable improvement, abdomen less tense, wound clean and well approximated, good urine output, no bowel activity yet, continue as is 10/31/23 afebrile, abdomen softer, abdominal pressure reported as 7, wound clean, well approximated, drainage serous, ok to wean off rocuronium and begin weaning off ventilator 09/01/24 ESSENTIALLYT UNCHANGED, WOUND CLEAN, DRAINAGE SEROUS, ABDOMINAL PRESSURE 7 TO 9, CONTINUE IS 09/05/24 abdomen soft, non distended, pressures normalized, good urine output marisol drainage decreasing, she is to have a CT scan today, wound clean and well approximated. :surgically" stable 09/15/24 extubated, cooperative, abdomen non distended, non tender, drainage serous. could start po clear liquids. wound clean and well approximated Plan discussed with: Patient, Other Dietary Evaluation Review Comments: 1) Increase TPN to meet at least 75% of estimated needs 2) Advance pt diet when medically feasible to a Low Fat diet 3) Continue current plan of care Expected Outcomes/Goals: 1) Pt diet to advance 2) Pt labs to improve 3) F/U in 2-3 days MARILYN OJEDA MD Sep 15, 2024 08:18
[2024-09-15] MEDS: POTASSIUM CHL 20MEQ/100ML 100 ML IV SCH (11:35)
--- NOTE | 2024-09-15 20:02 | DVHPN2 ---
Progress Note - Dictate Date Seen: Sep 15, 2024 Has the PT tested + for MRSA If YES, has PT been informed?: Yes Medical Necessity Reason Pt with a Central, PICC or Fol: Yes The following are medically ne: Central Line, Gutierrez Catheter Reason for gutiererz catheter: Strict I&O Subjective Patient seen and examined at bedside. Remains on supplemental oxygen Overnight events reviewed. vital signs Vital Sign Date Time Temp Pulse Resp B/P (MAP) Pulse Ox O2 Delivery O2 Flow Rate FiO2 09/15/24 18:33 151/77 09/15/24 18:00 20 97 Nasal Cannula* 2 28 09/15/24 08:00 56 09/15/24 06:00 100.0 100.0 Total Intake and Output 09/14/24 09/14/24 09/15/24 15:00 23:00 07:00 Intake Total 660.064 ml 376.064 ml 170.806 ml Output Total 1385 ml 945 ml Balance 660.064 ml -1008.936 ml -774.194 ml medications Current Medications Medications Dose Ordered Sig/Snow Route Start Time Stop Time Status Last Admin Dose Admin Sodium Chloride 10 ml Q8HR IV 08/14/24 22:00 09/15/24 14:23 10 ML Sodium Chloride 10 ml QSHIFT@10,22 IV 08/19/24 22:00 09/15/24 10:21 10 ML Insulin Human (Reg)/Sodium Chloride 100 ml 1945 IV 08/21/24 19:45 UNV Hydralazine HCl 10 mg Q6HP PRN IV 08/25/24 17:30 09/14/24 15:07 10 MG Diagnostic Test (Pha) 1 strip Q6HR 08/28/24 12:00 09/15/24 17:53 1 STRIP Dextrose 50 ml UD PRN IV 08/28/24 09:15 Artificial Tears 1 drop Q2HP PRN EACHEYE 08/29/24 12:45 09/13/24 14:27 1 DROP Bumetanide 1 mg BIDD IV 09/01/24 18:00 09/15/24 17:51 1 MG Linezolid 300 ml @ 150 mls/hr Q12H IV 09/03/24 20:00 09/15/24 08:59 150 MLS/HR Pantoprazole Sodium 40 mg BID IV 09/05/24 13:45 12/8/24 10:19 40 MG Hydromorphone HCl 2 mg Q6HPRN PRN IV 09/08/24 10:45 09/14/24 17:44 2 MG Azithromycin 250 ml @ 125 mls/hr DAILY IV 09/09/24 10:00 09/15/24 10:21 125 MLS/HR Haloperidol Lactate 5 mg Q4HPRN PRN IV 09/09/24 12:30 09/13/24 01:44 5 MG Meropenem 50 ml @ 17 mls/hr Q8HR IV 09/11/24 22:00 09/15/24 14:22 17 MLS/HR Enoxaparin Sodium 40 mg DAILY SC 09/12/24 10:00 09/15/24 10:20 40 MG Ketorolac Tromethamine 30 mg Q6HPRN PRN IV 09/11/24 22:15 09/16/24 22:14 Hold 09/13/24 14:54 30 MG Albuterol 2.5 mg Q6HP PRN NEB 09/12/24 16:00 Ipratropium [place] 0.5 mg Q6HPRN PRN NEB 09/12/24 16:00 Dexmedetomidine HCl 400 mcg/ Dextrose 100 ml @ 3.505 mls/ hr Q24H IV 09/13/24 14:45 09/15/24 18:33 3.505 MLS/HR Acetaminophen 1,000 mg Q4HPRN PRN IV 09/13/24 15:00 09/14/24 23:40 1,000 MG Ibuprofen 400 mg Q6HP PRN PO 09/13/24 15:00 Ondansetron HCl 4 mg Q8HPRN PRN IV 09/13/24 15:45 09/15/24 09:06 4 MG Sodium Chloride 1 spr TID PRN EACHNOSTRI 09/14/24 17:00 09/14/24 18:16 1 SPR Lorazepam 2 mg Q3HP PRN IV 09/15/24 09:45 objective Gen.: Patient lying in bed in no apparent distress. On supplemental oxygen. Head: Normocephalic, atraumatic. Eyes: EOMI/PERRLA. Ears: Normal hearing. Normal anatomy. Neck/trachea: Trachea midline, supple. Nose: Normal external anatomy. Mouth: Moist mucous membranes. Chest: Decreased air entry bilaterally. No wheezing or rhonchi. Cardiovascular: Positive S1, positive S2. Regular rate and rhythm. Abdomen: Positive bowel sounds in all 4 quadrants. Soft, non-tender, non- distended. : Deferred. Rectal: Deferred. Skin: Warm, dry. Intact. Extremities: 2+ radial pulses bilaterally. No lower extremity edema. Neuro: Awake, alert, oriented x3. No gross motor or sensory deficits. Cranial nerves II through XII intact. Gait not assessed. laboratory and microbiology Laboratory Tests 09/15/24 03:12 Test 09/15/24 03:12 Range/Units Serum Glucose 107 H 74-106 mg/dL Assessment/Plan Impression: Acute hypoxic respiratory failure Hypertriglyceridemia induced acute pancreatitis Hypocalcemia Hypophosphatemia Peritonitis Acute abdomen Ascites Hyponatremia due to hypotonic IV fluid Vitamin-D deficiency Hypomagnesemia Hyperparathyroidism immune Rastafari diffuse plasmapheresis Lactic acidosis, improving Events: Remains on supplemental oxygen, 2 LPM NC Taper O2 as tolerated On Precedex drip Haldol PRN agitation. Hemoglobin 10 g/dL Continue to monitor - Transfuse if less than 7.0 g/dL. Continue antibiotics - Zyvox, azithromycin, meropenem Urine culture grew >100,000 CFU/mL yeast WBC within normal limits. Continue bronchodilators Diurese w/ Bumex as tolerated Potassium supplementation Monitor renal function. TPN for nutritional support IV fluids with D5-NS. Protonix BID for GI prophylaxis Wound care Physical therapy. Labs and imaging reviewed. Rest of plan as noted below. Plan: S/p extubation On supplemental O2 at 2 LPM NC Titrate to keep O2 sats above 92%. Pressors for hemodynamic support if necessary. Keep MAP above 65 mmHg/SBP above 90 mmHg. Continue antibiotics. F/u cultures. Monitor renal function due to Acute kidney injury. Monitor electrolytes. Supplement as necessary. Continue IV fluids Abdomen was severely distended. Limited ultrasound of the abdomen revealed no pocket amenable for paracentesis. Recommended for RN to check bladder pressure every 6 hours. Currently it was 16 mmHg. Surgery recommendations appreciated - we will consider emergent surgery if abdominal pressures exceeding 25 mmHg. Patient s/p surgical procedure to decompress abdomen on 08/26. GI/DVT prophylaxis. Condition: Critical Prognosis: Poor given multiple comorbidities. Rest of plan per hospitalist and other consultants. A total of 35 minutes of critical care time was spent reviewing the patient record, examining the patient, making a diagnostic and therapeutic plan, discussing this plan with the medical personnel, following up on diagnostic studies and following the patient for clinical stability excluding any and all procedures. At least 50% of this time was spent in direct, [id number] contact. Thank you Dr. Bedolla for allowing me to participate in this patient's care. Further recommendations will depend on patient's clinical course. Please do not hesitate to contact me if you have any questions or concerns. This medical document was created using an electronic medical record system with [employer] dictation system. Although this document has been carefully reviewed, there may still be some phonetic and typographical errors. These areas are purely typographical due to imperfections of the software programs, and do not reflect any compromise in the patient's medical care. Dietary Evaluation Review Comments: 1) Increase TPN to meet at least 75% of estimated needs 2) Advance pt diet when medically feasible to a Low Fat diet 3) Continue current plan of care Expected Outcomes/Goals: 1) Pt diet to advance 2) Pt labs to improve 3) F/U in 2-3 days Plan discussed with: Other (ANDRES Tristan) Critical Care Time(min): 35 JUDE REN MD Sep 15, 2024 20:02
--- NOTE | 2024-09-15 20:58 | DVHPN2 ---
Subjective his a 34-year-old female with a history of hyperlipidemia (HLD) presented to the emergency department with severe epigastric pain since 1 day before admission. She reported having crampy pain spreading throughout her abdomen, along with nausea, vomiting, and chills. She denies fever, chest pain, shortness of breath, fatigue, and weakness. family history positive for hypertriglyceridemia in paternal side With father affected. Noted previous extensive skin rash/ allergy to fenofibrate and presently on atorvastatin 40 mg daily only. Today, patient seen and examined at the bedside. Patient is calm and lying on the bed with the occasional agitation. has been extubated before Reviewed: Care Plan, H&P, Labs, Medications, Previous Orders, Radiology, Other Changes from previous H/P or p: No Changes Objective Vitals Vital Signs Date Time Temp Pulse Resp B/P (MAP) Pulse Ox O2 Delivery O2 Flow Rate FiO2 09/15/24 18:33 151/77 09/15/24 18:00 20 97 Nasal Cannula* 2 28 09/15/24 18:00 60 09/15/24 16:00 100.0 100.0 Intake/Output Intake and Output 09/15/24 05:00 Intake Total 1129.192 ml Output Total 3135 ml Balance -2005.808 ml Intake Oral 200 ml IV Total 929.192 ml Output Urine Total 2175 ml Stool Total 750 ml Emesis 100 ml Drainage Total 110 ml General Appearance: Other (Intubated and sedated) HEENT: Atraumatic Lungs: Other (Mechanical ventilation sounds) Cardiovascular: Regular rate, Normal S1, Normal S2 Abdomen: Other (Serosanguineous fluid in SOLIS drains; hypoactive bowel sounds) Genitourinary: Other (Sparrow's) Neuro: Other (Intubated and sedated) Psych/Mental Status: Other (Intubated and sedated) Medications Current Medications Medications Dose Ordered Sig/Snow Route Start Time Stop Time Status Last Admin Dose Admin Sodium Chloride 10 ml Q8HR IV 08/14/24 22:00 09/15/24 14:23 10 ML Sodium Chloride 10 ml QSHIFT@10,22 IV 08/19/24 22:00 09/15/24 10:21 10 ML Insulin Human (Reg)/Sodium Chloride 100 ml 1945 IV 08/21/24 19:45 UNV Hydralazine HCl 10 mg Q6HP PRN IV 08/25/24 17:30 09/14/24 15:07 10 MG Diagnostic Test (Pha) 1 strip Q6HR 08/28/24 12:00 09/15/24 17:53 1 STRIP Dextrose 50 ml UD PRN IV 08/28/24 09:15 Artificial Tears 1 drop Q2HP PRN EACHEYE 08/29/24 12:45 09/13/24 14:27 1 DROP Bumetanide 1 mg BIDD IV 09/01/24 18:00 09/15/24 17:51 1 MG Linezolid 300 ml @ 150 mls/hr Q12H IV 09/03/24 20:00 09/15/24 08:59 150 MLS/HR Pantoprazole Sodium 40 mg BID IV 09/05/24 13:45 09/15/24 10:19 40 MG Hydromorphone HCl 2 mg Q6HPRN PRN IV 09/08/24 10:45 09/14/24 17:44 2 MG Azithromycin 250 ml @ 125 mls/hr DAILY IV 09/09/24 10:00 09/15/24 10:21 125 MLS/HR Haloperidol Lactate 5 mg Q4HPRN PRN IV 09/09/24 12:30 09/13/24 01:44 5 MG Meropenem 50 ml @ 17 mls/hr Q8HR IV 09/11/24 22:00 09/15/24 14:22 17 MLS/HR Enoxaparin Sodium 40 mg DAILY SC 09/12/24 10:00 09/15/24 10:20 40 MG Ketorolac Tromethamine 30 mg Q6HPRN PRN IV 09/11/24 22:15 09/16/24 22:14 Hold 09/13/24 14:54 30 MG Albuterol 2.5 mg Q6HP PRN NEB 09/12/24 16:00 Ipratropium [place] 0.5 mg Q6HPRN PRN NEB 09/12/24 16:00 Dexmedetomidine HCl 400 mcg/ Dextrose 100 ml @ 3.505 mls/ hr Q24H IV 09/13/24 14:45 09/15/24 18:33 3.505 MLS/HR Acetaminophen 1,000 mg Q4HPRN PRN IV 09/13/24 15:00 09/14/24 23:40 1,000 MG Ibuprofen 400 mg Q6HP PRN PO 09/13/24 15:00 Ondansetron HCl 4 mg Q8HPRN PRN IV 09/13/24 15:45 09/15/24 09:06 4 MG Sodium Chloride 1 spr TID PRN EACHNOSTRI 09/14/24 17:00 09/14/24 18:16 1 SPR Lorazepam 2 mg Q3HP PRN IV 09/15/24 09:45 Laboratory Results Laboratory Tests 09/15/24 03:12 Chemistry Test 09/15/24 03:12 Albumin 3.6 g/dL (3.2-4.8) Calcium Level 9.8 mg/dL (8.7-10.4) Total Protein 6.5 g/dL (5.7-8.2) Lipid panel Test 09/15/24 03:12 Triglycerides Level 289 mg/dL (< 150) H LFT Test 09/15/24 03:12 Alanine Aminotransferase (ALT) 14 U/L (7-40) Alkaline Phosphatase 61 U/L (46-116) Aspartate Amino Transferase (AST) 11 U/L (13-40) L Total Bilirubin 0.4 mg/dL (0.2-1.0) Urinalysis Test 08/14/24 12:07 08/16/24 12:55 Urine Color Colorless (Yellow) Urine Clarity Clear (Clear) Urine pH 5.5 (5.0-9.0) Urine Specific [place] 1.013 (1.001-1.035) Urine Protein Negative (Negative) Urine Ketones Negative (Negative) Urine Blood 1+ /uL (Negative) H Urine Nitrite Negative (Negative) Urine Bilirubin Negative (Negative) Urine Urobilinogen Normal mg/dL (Negative) Urine Leukocyte Esterase Negative /uL (Negative) Urine RBC 3 /hpf (0 - 4) Urine WBC <1 /hpf (0 - 5) Urine Squamous Epithelial Cells Few /hpf (<5) Urine Bacteria Few /hpf (None Seen) H Urine Glucose Normal mg/dL (Normal) Urine Creatinine 242.96 mg/dL (30.0-125.0) H Urine Protein/Creatinine Ratio 1.09 Urine Sodium 13 mmol/L (40-220) L Urine Total Protein 265.4 mg/dL (1-14) H Microbiology Microbiology Date/Time Source Procedure Growth Status 09/14/24 15:25 Blood Blood Culture - Preliminary NO GROWTH AFTER 24 HOURS OF INCUBATION. Resulted 09/14/24 13:25 Voided Urine Urine Culture - Preliminary Resulted 09/07/24 12:49 Stool Stool Culture - Final Complete 09/07/24 12:49 Stool Shiga Toxin I & II - Final Complete 09/04/24 11:21 Bronchial Washings Gram Stain - Final Complete 09/04/24 11:21 Respiratory Culture - Final Presumptive Dariana albicans Complete 08/15/24 13:32 Nose MRSA Screen - Final Complete Assessment/Plan Assessment/Plan This a 34-year-old female with a history of hyperlipidemia presented to the emergency department with severe epigastric pain since 1 day before admission. Admitted on 08/14 and intubated on 08/16 NEURO: Acute metabolic encephalopathy, likely due to pancreatitis leading to abdominal compartment syndrome and respiratory failure Patient is sedated and on mechanical ventilation, with RASS score of 0 to +1, despite being on Diprivan, Versed, fentanyl, haloperidol Started rocuronium drip on 09/09 Bilateral eye bulging, artificial tears Pain medication: Dilaudid 2mg q.6 hours as needed Occasional agitation, injection Ativan 5 mg q.3 hours p.r.n. CARDIOVASCULAR: Hypertensive urgency, controlled Injection hydralazine 10 mg q.6 hours as needed PULMONARY: Acute hypercapnic/hypoxic respiratory failure due to hypertriglyceridemia induced pancreatitis leading to abdominal compartment syndrome and respiratory failure/pneumonia Pneumonia likely due to Gram-negative Gram-positive bacteria ARDS, likely due to pancreatitis Pleural effusion Bronchoscopy performed on 09/04/2024, there was some secretion on right lower lobe, bronchial lavage of right and left lower bronchi was performed, and the sample was sent for the culture sensitivity, Gram stain and AFB Bilateral pleural effusion with bibasilar atelectasis Blood culture from 09/02/2024 shows no growth ABGs shows respiratory acidosis with pH 7.313 CT scan on 09/05 shows small to moderate left pleural effusion Chest x-rays on 09/10 shows bilateral diffuse infiltration ABGs shows mild respiratory acidosis with metabolic compensation, pH 7.406 Continue linezolid (started on 09/03) azithromycin(started on 09/09) Continue meropenem started on 09/11 Breathing treatment q.4 hours as needed Extubated yesterday, maintain oxygen saturation at 92% with 2 L of oxygen through nasal cannula. PT evaluation Swallowing evaluation GI: Abdominal compartment syndrome, status post decompression status post decompressive laparotomy (08/18/2024) re-exploratory irrigation of abdomen on 08/20/2024 Surgery on the board, recommended conservative management Daily monitoring of intra-abdominal pressure GI evaluated the patient and recommended Dulcolax suppository and stopped Reglan CT abdomen repeated on 09/05 and shows significant peripancreatic fluid/edema with [id number] ascites GI ppx: Protonix b.i.d. RENAL: UTI, likely hemodynamically mediated, improved Continue Bumex 1 mg b.i.d., 1 extra dose of Bumex 1 mg after extubation ID: Meropenem and doxycycline was stopped on 09/02/2024 Blood culture From 09/02/2024 shows no growth after 48 hour Urine culture from 09/02/2024 shows no growth Sputum culture from 08/16 shows beta strep 9 a, non B Bronchial alveolar lavage culture results from 09/04 shows presumptive Dariana albicans Stool results from 09/07 shows Campylobacter antigen Continue linezolid, cefepime and azithromycin. No linezolid in the hospital for now due to shortage Raised WBC at 12.4 Panculture By Nasreen at 100.1, injection ibuprofen q.6 hours as needed new fever>panculture today Metabolic: Hyponatremia, improved Hypocalcemia, improved, continue calcitriol 1 mcg IV daily Hypophosphatemia, improved Hypomagnesemia, improved Hypokalemia, normalized Hyperkalemia, hypokalemia treatment given, normalized Hypomagnesemia, supplement HEME: Severe anemia, likely due to intra-abdominal bleeding Six pint of blood has been transfused ENDOCRINE: Familiar hypertriglyceridemia Insulin drip has been discontinued Daily triglycerides monitoring Patient is sensitive to fenofibrate LINES/DRAINS/ACCESS: ETT, put on 08/16/24 IV access Right internal jugular vein, placed on 08/16/2024 and removed on 09/09 Right PICC line, placed on 08/20/2024 Transurethral [place] catheter, placed on 08/20/2024 Drips Diprivan 50 Versed 25 Fentanyl 550 Discontinued paralytics DVT prophylaxis Lovenox 40 mg daily Diet: NPO Swallow evaluation Disposition: ICU status, keep in ICU CODE STATUS: Full code Patient's status discussed with the mother and father at the bedside. Critical Care time spent more than 73 minutes, including patient care, chart review, updating the family, excluding any procedures. Plan discussed with: Other (nurse) My Orders Orders - ARLETTE FAUST MD Procedure Category Date Status Time Lorazepam 2mg/Ml Inj PHA 09/15/24 In Process (Ativan Inj) 09:45 Date of Service: Sep 15, 2024 Billing Provider: ARLETTE FAUST MD Common Visit Codes: [id number] CARE 30-74 MIN ARLETTE FAUST MD Sep 15, 2024 20:58
[2024-09-15] MEDS: LINEZOLID 600MG/300ML 300 ML IV ONE (21:06)
[2024-09-16] VITALS (41 sets, daily range): BP systolic 134–159; BP diastolic 62–88; PULSE 53–114; RESP 6–36; TEMP 98.3–99.1; O2SAT 90–100
--- NOTE | 2024-09-16 07:53 | DVH ---
CHEST RADIOGRAPH Indication: Pneumonia Technique: Single frontal view of the chest was obtained COMPARISON: XY CHEST XRAY 1 VIEW on DOS: 09/14/24, XY CHEST XRAY 1 VIEW on DOS: 09/13/24, XY CHEST XRAY 1 VIEW on DOS: 09/12/24 FINDINGS: Lines and Tubes: Right PICC in satisfactory position. Lungs: Patchy bilateral airspace disease. Pleura: No effusion. No pneumothorax. Cardiomediastinal contours: Unremarkable Bones: Unremarkable IMPRESSION: No significant interval change.
[2024-09-16 08:18] LABS: Chloride 102 mmol/L (98-107); Potassium 3.8 mmol/L (3.5-5.1)
[2024-09-16 08:19] LABS: Carbon Dioxide 28 mmol/L (20-31)
[2024-09-16 08:20] LABS: Calcium 9.8 mg/dL (8.7-10.4)
[2024-09-16 08:24] LABS: BUN/Creatinine Ratio 29.4 (10.0-20.0); Blood Urea Nitrogen 20 mg/dL (9-23); Glucose 104 mg/dL (74-106)
[2024-09-16 08:29] LABS: Basophils # (auto) 0 10 ^3/uL (0-0.2); Basophils % (auto) 0.3 % (0.0-2.0); Eosinophils # (auto) 0 10 ^3/uL (0-0.8); Eosinophils % (auto) 0.3 % (0.0-7.0); Hematocrit 33.5 % (36.0-46.0); Hemoglobin 11.3 g/dL (12.2-16.2); Lymphocytes # (auto) 2.3 10 ^3/uL (0.4-5.4); Lymphocytes % (auto) 23.4 % (10.0-50.0); Mean Corpuscular Hemoglobin 28.4 pg (28.0-32.0); Mean Corpuscular Hgb Conc. 33.8 g/dL (32.0-36.0); Mean Corpuscular Volume 84.1 fL (80.0-100.0); Monocytes # (auto) 0.9 10 ^3/uL (0-1.3); Monocytes % (auto) 8.9 % (0.0-12.0); Neutrophils # (auto) 6.6 10 ^3/uL (1.6-8.6); Neutrophils % (auto) 67.1 % (37.0-80.0); Nucleated Red Blood Cells % 0.2 %; Platelet Count (auto) 363 10^3/uL (140-450); Red Blood Cells 3.99 10^6/uL (4.0-5.20); Red Cell Distribution Width 14.1 % (11.8-14.3); White Blood Cell 9.8 10^3/uL (4.4-10.8)
[2024-09-16 09:07] LABS: Anion Gap 8 (5-15); Sodium 138 mmol/L (136-145)
--- NOTE | 2024-09-16 12:38 | DVHPN2 ---
Progress Note Date Seen: Sep 16, 2024 Has the PT tested + for MRSA If YES, has PT been informed?: Yes Medical Necessity Reason Pt with a Central, PICC or Fol: Yes The following are medically ne: Central Line, Gutierrez Catheter Reason for gutierrez catheter: Strict I&O Subjective Patient reports: No new complaints, Feels better Objective vital signs Vital Sign Date Time Temp Pulse Resp B/P (MAP) Pulse Ox O2 Delivery O2 Flow Rate FiO2 09/16/24 10:00 29 96 Nasal Cannula* 2 28 09/16/24 09:31 165/78 09/16/24 08:00 67 09/16/24 04:14 98.3 98.3 Total Intake and Output 09/15/24 09/15/24 09/16/24 15:00 23:00 07:00 Intake Total 993.08 ml 1679.28 ml 525.271 ml Output Total 1350 ml 830 ml 1220 ml Balance -356.92 ml 849.28 ml -694.729 ml medications Current Medications Medications Dose Ordered Sig/Snow Route Start Time Stop Time Status Last Admin Dose Admin Sodium Chloride 10 ml Q8HR IV 08/14/24 22:00 09/16/24 06:01 10 ML Sodium Chloride 10 ml QSHIFT@10,22 IV 08/19/24 22:00 09/16/24 10:04 10 ML Insulin Human (Reg)/Sodium Chloride 100 ml 1945 IV 08/21/24 19:45 UNV Hydralazine HCl 10 mg Q6HP PRN IV 08/25/24 17:30 09/16/24 09:31 10 MG Diagnostic Test (Pha) 1 strip Q6HR 08/28/24 12:00 09/16/24 11:28 1 STRIP Dextrose 50 ml UD PRN IV 08/28/24 09:15 Bumetanide 1 mg BIDD IV 09/01/24 18:00 09/16/24 06:01 1 MG Linezolid 300 ml @ 150 mls/hr Q12H IV 09/03/24 20:00 09/16/24 08:58 150 MLS/HR Pantoprazole Sodium 40 mg BID IV 09/05/24 13:45 09/16/24 10:03 40 MG Meropenem 50 ml @ 17 mls/hr Q8HR IV 09/11/24 22:00 09/16/24 06:01 17 MLS/HR Enoxaparin Sodium 40 mg DAILY SC 09/12/24 10:00 09/16/24 10:03 40 MG Albuterol 2.5 mg Q6HP PRN NEB 09/12/24 16:00 Cancel Ipratropium [place] 0.5 mg Q6HPRN PRN NEB 09/12/24 16:00 Cancel Acetaminophen 1,000 mg Q4HPRN PRN IV 09/13/24 15:00 09/14/24 23:40 1,000 MG Ibuprofen 400 mg Q6HP PRN PO 09/13/24 15:00 Sodium Chloride 1 spr TID PRN EACHNOSTRI 09/14/24 17:00 09/14/24 18:16 1 SPR Lorazepam 2 mg Q3HP PRN IV 09/15/24 09:45 Examination: HEENT:Normal, NECK:Normal, LUNGS:Normal, CVS:Normal, ABDOMEN:Abnormal ([place] drains), MSK:Abnormal, SKIN:Abnormal (abdominal wound), NEURO:Normal laboratory and microbiology Laboratory Tests 09/16/24 07:55 Test 09/16/24 07:55 Range/Units Serum Glucose 104 74-106 mg/dL Problem List/Assessment/Plan Problem List/Assessment/Plan 09/02/24 wound clean dry and intact, pressures 7 , serous fluid from drains, continue current treatment 09/16/24 - extubated, abdomen non distended, non tender, SOLIS drains drainage serous fluid, bowel movements,, wound clean and well approximated, clear liquids physical therapy Plan discussed with: Patient, Other (dr. Darby) Dietary Evaluation Review Comments: 1) Increase TPN to meet at least 75% of estimated needs 2) Advance pt diet when medically feasible to a Low Fat diet 3) Continue current plan of care Expected Outcomes/Goals: 1) Pt diet to advance 2) Pt labs to improve 3) F/U in 2-3 days WARNER HILL NP Sep 16, 2024 12:38
[2024-09-16] MEDS: PANTOPRAZOLE 40 MG/10 ML VIAL INJ IV SCH (13:15)
[2024-09-16] MEDS: LORazepam 2MG/ML-1ML VIAL IV PRN (15:44)
[2024-09-16] MEDS: ONDANSETRON HCL 4 MG/2 ML VIAL IV SCH (18:55)
--- NOTE | 2024-09-16 20:40 | DVHPNRES ---
Progress Note Date Seen: Sep 16, 2024 Resident Creating Document: BOZENA TRENT RESDIENT Has the PT tested + for MRSA If YES, has PT been informed?: Yes Medical Necessity Reason Pt with a Central, PICC or Fol: Yes The following are medically ne: Central Line, Gutierrez Catheter Reason for gutierrez catheter: Strict I&O Subjective Review of Systems his a 34-year-old female with a history of hyperlipidemia (HLD) presented to the emergency department with severe epigastric pain since 1 day before admission. She reported having crampy pain spreading throughout her abdomen, along with nausea, vomiting, and chills. She denies fever, chest pain, shortness of breath, fatigue, and weakness. family history positive for hypertriglyceridemia in paternal side With father affected. Noted previous extensive skin rash/ allergy to fenofibrate and presently on atorvastatin 40 mg daily only. Today, patient seen and examined at the bedside. Patient is calm and lying on the bed. The patient was put on nasal cannula with 1 L of oxygen could maintain 94% of oxygen saturation. Patient reports: No new complaints, Feels better Changes from previous H/P or p: Changes Objective vital signs Vital Sign Date Time Temp Pulse Resp B/P (MAP) Pulse Ox O2 Delivery O2 Flow Rate FiO2 09/16/24 18:00 17 100 Nasal Cannula* 1 09/16/24 18:00 86 09/16/24 09:31 165/78 09/16/24 04:14 98.3 98.3 Total Intake and Output 09/15/24 09/15/24 09/16/24 15:00 23:00 07:00 Intake Total 993.08 ml 1679.28 ml 542.271 ml Output Total 1350 ml 830 ml 1220 ml Balance -356.92 ml 849.28 ml -677.729 ml medications Current Medications Medications Dose Ordered Sig/Snow Route Start Time Stop Time Status Last Admin Dose Admin Sodium Chloride 10 ml Q8HR IV 08/14/24 22:00 09/16/24 15:30 10 ML Sodium Chloride 10 ml QSHIFT@ IV 08/19/24 22:00 09/16/24 10:04 10 ML Insulin Human (Reg)/Sodium Chloride 100 ml 1945 IV 08/21/24 19:45 UNV Hydralazine HCl 10 mg Q6HP PRN IV 08/25/24 17:30 09/16/24 09:31 10 MG Diagnostic Test (Pha) 1 strip Q6HR 08/28/24 12:00 09/16/24 17:17 1 STRIP Dextrose 50 ml UD PRN IV 08/28/24 09:15 Meropenem 50 ml @ 17 mls/hr Q8HR IV 09/11/24 22:00 09/16/24 13:56 17 MLS/HR Enoxaparin Sodium 40 mg DAILY SC 09/12/24 10:00 09/16/24 10:03 40 MG Albuterol 2.5 mg Q6HP PRN NEB 09/12/24 16:00 Cancel Ipratropium [place] 0.5 mg Q6HPRN PRN NEB 09/12/24 16:00 Cancel Acetaminophen 1,000 mg Q4HPRN PRN IV 09/13/24 15:00 09/16/24 13:45 1,000 MG Ibuprofen 400 mg Q6HP PRN PO 09/13/24 15:00 Sodium Chloride 1 spr TID PRN EACHNOSTRI 09/14/24 17:00 09/16/24 17:18 1 SPR Lorazepam 2 mg Q3HP PRN IV 09/15/24 09:45 09/16/24 15:44 2 MG Bumetanide 1 mg QAM IV 09/17/24 07:00 Ondansetron HCl 4 mg TID IV 09/16/24 22:00 09/16/24 18:55 4 MG Pantoprazole Sodium 40 mg DAILY@0600 PO 09/17/24 06:00 Examination General: RASS 0 , afebrile, mucosae are moist Cardiovascular: Normal S1 and S2. No murmurs, gallops or rubs Respiratory: Equal bilateral airway entree. Bilateral mild diffuse crackles Abdomen: Soft, nontender, no organomegaly, normal bowel sounds MSK/skin: Mobilization of limbs cannot be evaluated. Skin is dry and warm. Neurological: No apparent motor no sensitive deficits. Pupils are isocoric and reactive laboratory and microbiology Laboratory Tests 09/16/24 07:55 Test 09/16/24 07:55 Range/Units Serum Glucose 104 74-106 mg/dL Microbiology Date/Time Source Procedure Growth Status 09/14/24 15:25 Blood Blood Culture - Preliminary NO GROWTH AFTER 48 HOURS OF INCUBATION. Resulted 12/7/24 13:25 Voided Urine Urine Culture - Preliminary Presumptive Dariana albicans Resulted 09/07/24 12:49 Stool Stool Culture - Final Complete 09/07/24 12:49 Stool Shiga Toxin I & II - Final Complete 09/04/24 11:21 Bronchial Washings Gram Stain - Final Complete 09/04/24 11:21 Respiratory Culture - Final Presumptive Dariana albicans Complete 08/15/24 13:32 Nose MRSA Screen - Final Complete Labs and/or images reviewed: Labs reviewed by me, Image(s) reviewed by me Problem List/Assessment/Plan Problem List/Assessment/Plan This a 34-year-old female with a history of hyperlipidemia presented to the emergency department with severe epigastric pain since 1 day before admission. Admitted on 08/14 and intubated on 08/16 NEURO: Acute metabolic encephalopathy, likely due to pancreatitis leading to abdominal compartment syndrome and respiratory failure Patient is successfully extubated on 09/13, with RASS score of 0, lying comfortably on the bed Occasional agitation, injection Ativan p.r.n. CARDIOVASCULAR: Hypertensive urgency, controlled Injection hydralazine 10 mg q.6 hours as needed PULMONARY: Acute hypercapnic/hypoxic respiratory failure due to hypertriglyceridemia induced pancreatitis leading to abdominal compartment syndrome and respiratory failure/pneumonia Pneumonia likely due to Gram-negative Gram-positive bacteria ARDS, likely due to pancreatitis Pleural effusion Bronchoscopy performed on 09/04/2024, there was some secretion on right lower lobe, bronchial lavage of right and left lower bronchi was performed, and the sample was sent for the culture sensitivity, Gram stain and AFB Bilateral pleural effusion with bibasilar atelectasis Blood culture from 09/02/[address] scan on 09/05 shows small to moderate left pleural effusion Discontinue azithromycin, used for 7 days, discontinue Zyvox used for 14 days Chest x-rays shows prominent bronchovascular marking, improvement in compared to previous films ABGs shows normal parameters Continue meropenem started on 09/11 PT evaluation GI: Abdominal compartment syndrome, status post decompression status post decompressive laparotomy (08/18/2024) re-exploratory irrigation of abdomen on 08/20/2024 Surgery on the board, recommended conservative management Daily monitoring of intra-abdominal pressure GI evaluated the patient and recommended Dulcolax suppository and stopped Reglan CT abdomen repeated on 09/05 and shows significant peripancreatic fluid/edema with [id number] ascites GI ppx: Protonix 40 mg p.o. daily Continue Reglan 10 mg t.i.d. RENAL: UTI, likely hemodynamically mediated, improved Changed Bumex from 1 mg b.i.d. to Bumex 1 mg daily ID: Meropenem and doxycycline was stopped on 09/02/2024 Blood culture From 09/02/2024 shows no growth after 48 hour Urine culture from 09/02/2024 shows no growth Sputum culture from 08/16 shows beta strep 9 a, non B Bronchial alveolar lavage culture results from 09/04 shows presumptive Dariana albicans Stool results from 09/07 shows Campylobacter antigen Blood culture from 09/14 shows no growth after 48 hours Urine cultures from 09/14 shows presumptive Dariana albicans Mild fever, acetaminophen and ibuprofen as needed Metabolic: Hyponatremia, improved Hypocalcemia, improved, continue calcitriol 1 mcg IV daily Hypophosphatemia, improved Hypomagnesemia, improved Hypokalemia, normalized Hyperkalemia, hypokalemia treatment given, normalized Hypomagnesemia, supplement HEME: Severe anemia, likely due to intra-abdominal bleeding Six pint of blood has been transfused ENDOCRINE: Familiar hypertriglyceridemia Hypertriglyceridemia induced pancreatitis was treated with insulin drip Daily triglycerides monitoring Patient is sensitive to fenofibrate LINES/DRAINS/ACCESS: ETT, put on 08/16/24 IV access Right internal jugular vein, placed on 08/16/2024 and removed on 09/09 Right PICC line, placed on 08/20/2024 Transurethral Gutierrez catheter, placed on 08/20/2024 Discontinue rectal tube Drips: No pressor and sedative DVT prophylaxis: Lovenox 40 mg daily Diet: Clear liquid diet Disposition: [facility] status Transfer to [facility] from ICU CODE STATUS: Full code Patient's status discussed with the patient, mother and father at the bedside. Critical Care time spent more than 62 minutes, including patient care, chart review, updating the family, excluding any procedures. Case discussed with Dr. Cochran Plan discussed with: Patient, Other (Parents) My Orders My Orders Orders - BOZENA TRENT RESWALT Procedure Category Date Status Time Chest Xray 1 View XY 09/16/24 Resulted 06:42 Ondansetron Hcl PHA 09/16/24 In Process (Zofran) 22:00 Clear Liq Diet DIET 09/16/24 Transmitted Dinner Pantoprazole Tablet PHA 09/17/24 In Process (Protonix Tablet) 06:00 D/C Rectal Tube ORDERS 09/16/24 Transmitted 16:49 Comprehensive LAB 09/17/24 Verified Metabolic Panel 04:00 Complete Blood Count LAB 09/17/24 Verified 04:00 Chest Xray 1 View XY 09/17/24 Logged 04:00 Abg W/ Co-Ox RT 09/17/24 Logged 04:00 Dietary Evaluation Review Comments: 1) Increase TPN to meet at least 75% of estimated needs 2) Advance pt diet when medically feasible to a Low Fat diet 3) Continue current plan of care Expected Outcomes/Goals: 1) Pt diet to advance 2) Pt labs to improve 3) F/U in 2-3 days Date of Service: Sep 16, 2024 Billing Provider: GUS COCHRAN MD Common Visit Codes: [id number] CARE 30-74 MIN BOZENA TRENT RESDIENT Sep 16, 2024 20:40 GUS COCHRAN MD Sep 17, 2024 15:13
[2024-09-17] VITALS (26 sets, daily range): BP systolic 124–164; BP diastolic 79–109; PULSE 60–101; RESP 10–29; TEMP 97.7–100.1; O2SAT 93–99
[2024-09-17 03:55] LABS: Basophils # (auto) 0.1 10 ^3/uL (0-0.2); Basophils % (auto) 0.8 % (0.0-2.0); Eosinophils # (auto) 0.1 10 ^3/uL (0-0.8); Eosinophils % (auto) 1.1 % (0.0-7.0); Hematocrit 34.3 % (36.0-46.0); Hemoglobin 11.6 g/dL (12.2-16.2); Lymphocytes # (auto) 2.4 10 ^3/uL (0.4-5.4); Lymphocytes % (auto) 23.8 % (10.0-50.0); Mean Corpuscular Hemoglobin 28.9 pg (28.0-32.0); Mean Corpuscular Hgb Conc. 33.9 g/dL (32.0-36.0); Mean Corpuscular Volume 85.3 fL (80.0-100.0); Monocytes # (auto) 0.8 10 ^3/uL (0-1.3); Monocytes % (auto) 8.3 % (0.0-12.0); Neutrophils # (auto) 6.5 10 ^3/uL (1.6-8.6); Nucleated Red Blood Cells % 0.3 %; Platelet Count (auto) 332 10^3/uL (140-450); Red Blood Cells 4.02 10^6/uL (4.0-5.20); White Blood Cell 9.9 10^3/uL (4.4-10.8)
[2024-09-17 04:12] LABS: Albumin 3.9 g/dL (3.2-4.8); Alkaline Phosphatase 72 U/L (46-116); Anion Gap 7 (5-15); BUN/Creatinine Ratio 22.4 (10.0-20.0); Bilirubin, Total 0.6 mg/dL (0.2-1.0); Blood Urea Nitrogen 15 mg/dL (9-23); Calcium 9.7 mg/dL (8.7-10.4); Carbon Dioxide 28 mmol/L (20-31); Chloride 101 mmol/L (98-107); Glucose 105 mg/dL (74-106); Sodium 136 mmol/L (136-145); Total Protein 6.9 g/dL (5.7-8.2)
[2024-09-17 04:24] LABS: Alanine Aminotransferase 118 U/L (7-40); Aspartate Aminotransferase 67 U/L (13-40); Potassium 3.4 mmol/L (3.5-5.1); Triglycerides 323 mg/dL (< 150)
--- NOTE | 2024-09-17 05:03 | DVH ---
CHEST RADIOGRAPH Indication: Pneumonia Technique: Single frontal view of the chest was obtained Comparison: XY CHEST XRAY 1 VIEW on DOS: 09/16/24, XY CHEST XRAY 1 VIEW on DOS: 09/14/24, XY CHEST XRAY 1 VIEW on DOS: 09/13/24 IMPRESSION: Elevation of the right hemidiaphragm is stable. The heart appears stable in size. There is mild pul monary vascular congestion. No sizable effusion or pneumothorax. Right PICC line tip in the region of the superior vena cava. No significant interval change.
[2024-09-17] MEDS: PANTOPRAZOLE 40 MG TAB PO SCH (05:49)
[2024-09-17] MEDS: BUMETANIDE 1mg/4ml VIAL (0.25mg/ml) IV SCH (06:25)
[2024-09-17] MEDS: POTASSIUM EFFERVESENT TAB 25 MEQ PO ONE (10:57)
[2024-09-17] MEDS ORDERED: ONDANSETRON HCL 4 MG/2 ML VIAL IV PRN (15:15)
--- NOTE | 2024-09-17 19:31 | DVHPNRES ---
Progress Note Date Seen: Sep 17, 2024 Resident Creating Document: BOZENA TRENT RESDIENT Has the PT tested + for MRSA If YES, has PT been informed?: Yes Medical Necessity Reason Pt with a Central, PICC or Fol: Yes The following are medically ne: Central Line, Gutierrez Catheter Reason for gutierrez catheter: Strict I&O Subjective Review of Systems his a 34-year-old female with a history of hyperlipidemia (HLD) presented to the emergency department with severe epigastric pain since 1 day before admission. She reported having crampy pain spreading throughout her abdomen, along with nausea, vomiting, and chills. She denies fever, chest pain, shortness of breath, fatigue, and weakness. family history positive for hypertriglyceridemia in paternal side With father affected. Noted previous extensive skin rash/ allergy to fenofibrate and presently on atorvastatin 40 mg daily only. Today, patient seen and examined at the bedside. Patient is calm and lying on the bed. The patient was put on nasal cannula with 1 L of oxygen could maintain 94% of oxygen saturation. Patient reports: No new complaints, Feels better Changes from previous H/P or p: Changes Objective vital signs Vital Sign Date Time Temp Pulse Resp B/P (MAP) Pulse Ox O2 Delivery O2 Flow Rate FiO2 09/17/24 17:00 84 27 153/95 (114) 97 09/17/24 16:00 99.1 99.1 09/17/24 06:00 Nasal Cannula* 2 28 Total Intake and Output 09/16/24 09/16/24 09/17/24 15:00 23:00 07:00 Intake Total 1601 ml 308 ml 140 ml Output Total 1050 ml 560 ml 460 ml Balance 551 ml -252 ml -320 ml medications Current Medications Medications Dose Ordered Sig/Snow Route Start Time Stop Time Status Last Admin Dose Admin Sodium Chloride 10 ml Q8HR IV 08/14/24 22:00 09/17/24 14:07 10 ML Insulin Human (Reg)/Sodium Chloride 100 ml 1945 IV 08/21/24 19:45 UNV Hydralazine HCl 10 mg Q6HP PRN IV 08/25/24 17:30 09/16/24 09:31 10 MG Diagnostic Test (Pha) 1 strip Q6HR 08/28/24 12:00 09/17/24 17:46 1 STRIP Dextrose 50 ml UD PRN IV 08/28/24 09:15 Meropenem 50 ml @ 17 mls/hr Q8HR IV 09/11/24 22:00 09/17/24 14:07 17 MLS/HR Enoxaparin Sodium 40 mg DAILY SC 09/12/24 10:00 09/17/24 10:58 40 MG Albuterol 2.5 mg Q6HP PRN NEB 09/12/24 16:00 Cancel Ipratropium [place] 0.5 mg Q6HPRN PRN NEB 09/12/24 16:00 Cancel Acetaminophen 1,000 mg Q4HPRN PRN IV 09/13/24 15:00 09/16/24 13:45 1,000 MG Ibuprofen 400 mg Q6HP PRN PO 09/13/24 15:00 Sodium Chloride 1 spr TID PRN EACHNOSTRI 09/14/24 17:00 09/16/24 17:18 1 SPR Lorazepam 2 mg Q3HP PRN IV 09/15/24 09:45 09/16/24 15:44 2 MG Pantoprazole Sodium 40 mg DAILY@0600 PO 09/17/24 06:00 09/17/24 05:49 40 MG Ondansetron HCl 4 mg TID PRN IV 09/17/24 15:15 laboratory and microbiology Laboratory Tests 09/17/24 03:03 Test 09/17/24 03:03 Range/Units Serum Glucose 105 74-106 mg/dL Microbiology Date/Time Source Procedure Growth Status 09/14/24 15:25 Blood Blood Culture - Preliminary NO GROWTH AFTER 72 HOURS OF INCUBATION. Resulted 09/14/24 13:25 Voided Urine Urine Culture - Final Presumptive Dariana albicans Complete 09/07/24 12:49 Stool Stool Culture - Final Complete 09/07/24 12:49 Stool Shiga Toxin I & II - Final Complete 09/04/24 11:21 Bronchial Washings Gram Stain - Final Complete 09/04/24 11:21 Respiratory Culture - Final Presumptive Dariana albicans Complete 08/15/24 13:32 Nose MRSA Screen - Final Complete Labs and/or images reviewed: Labs reviewed by me, Image(s) reviewed by me Problem List/Assessment/Plan Problem List/Assessment/Plan This a 34-year-old female with a history of hyperlipidemia presented to the emergency department with severe epigastric pain since 1 day before admission. Admitted on 08/14 and intubated on 08/16 NEURO: Acute metabolic encephalopathy, likely due to pancreatitis leading to abdominal compartment syndrome and respiratory failure Patient is successfully extubated on 09/13, with RASS score of 0, lying comfortably on the bed Occasional agitation, injection Ativan p.r.n. CARDIOVASCULAR: Hypertensive urgency, controlled Injection hydralazine 10 mg q.6 hours as needed PULMONARY: Acute hypercapnic/hypoxic respiratory failure due to hypertriglyceridemia induced pancreatitis leading to abdominal compartment syndrome and respiratory failure/pneumonia Pneumonia likely due to Gram-negative Gram-positive bacteria ARDS, likely due to pancreatitis Pleural effusion Bronchoscopy performed on 09/04/2024, there was some secretion on right lower lobe, bronchial lavage of right and left lower bronchi was performed, and the sample was sent for the culture sensitivity, Gram stain and AFB Bilateral pleural effusion with bibasilar atelectasis Blood culture from 09/02/[address] scan on 09/05 shows small to moderate left pleural effusion Discontinue azithromycin, used for 7 days, discontinue Zyvox used for 14 days Chest x-rays shows prominent bronchovascular marking, improvement in compared to previous films ABGs shows normal parameters Continue meropenem started on 09/11 PT evaluation GI: Abdominal compartment syndrome, status post decompression status post decompressive laparotomy (08/18/2024) re-exploratory irrigation of abdomen on 08/20/2024 Surgery on the board, recommended conservative management Daily monitoring of intra-abdominal pressure GI evaluated the patient and recommended Dulcolax suppository and stopped Reglan CT abdomen repeated on 09/05 and shows significant peripancreatic fluid/edema with [id number] ascites GI ppx: Protonix 40 mg p.o. daily Reglan 10 mg t.i.d. PRN RENAL: UTI, likely hemodynamically mediated, improved Discontinue bumex ID: Meropenem and doxycycline was stopped on 09/02/2024 Blood culture From 09/02/2024 shows no growth after 48 hour Urine culture from 09/02/2024 shows no growth Sputum culture from 08/16 shows beta strep 9 a, non B Bronchial alveolar lavage culture results from 09/04 shows presumptive Dariana albicans Stool results from 09/07 shows Campylobacter antigen Blood culture from 09/14 shows no growth after 48 hours Urine cultures from 09/14 shows presumptive Dariana albicans Mild fever, acetaminophen and ibuprofen as needed Metabolic: Hyponatremia, improved Hypocalcemia, improved, continue calcitriol 1 mcg IV daily Hypophosphatemia, improved Hypomagnesemia, improved Hypokalemia, normalized Hyperkalemia, hypokalemia treatment given, normalized Hypomagnesemia, supplement HEME: Severe anemia, likely due to intra-abdominal bleeding Six pint of blood has been transfused ENDOCRINE: Familiar hypertriglyceridemia Hypertriglyceridemia induced pancreatitis was treated with insulin drip Daily triglycerides monitoring Patient is sensitive to fenofibrate LINES/DRAINS/ACCESS: ETT, put on 08/16/24 IV access: Right PICC line, placed on 08/20/2024 Transurethral Gutierrez catheter, placed on 08/20/2024 Drips: No pressor and sedative DVT prophylaxis: Lovenox 40 mg daily Diet: Mechanical soft diet Disposition: Transfer to Telemetry CODE STATUS: Full code Patient's status discussed with the patient, mother and father at the bedside. Critical Care time spent more than 52 minutes, including patient care, chart review, updating the family, excluding any procedures. Case discussed with Dr. Cochran Plan discussed with: Patient, Other (Parient and RN) Dietary Evaluation Review Comments: 1) Increase TPN to meet at least 75% of estimated needs 2) Advance pt diet when medically feasible to a Low Fat diet 3) Continue current plan of care Expected Outcomes/Goals: 1) Pt diet to advance 2) Pt labs to improve 3) F/U in 2-3 days Date of Service: Sep 17, 2024 Billing Provider: GUS COCHRAN MD Common Visit Codes: [id number] CARE 30-74 MIN BOZENA TRENT Sep 17, 2024 19:31 GUS COCHRAN MD Sep 18, 2024 11:44
[2024-09-17] MEDS: IBUPROFEN 400 MG TAB PO PRN (21:20)
[2024-09-18] VITALS (8 sets, daily range): BP systolic 98–147; BP diastolic 38–95; PULSE 79–105; RESP 16–21; TEMP 98–100; O2SAT 94–100
[2024-09-18 06:50] LABS: Alkaline Phosphatase 81 U/L (46-116); Anion Gap 11 (5-15); BUN/Creatinine Ratio 29.6 (10.0-20.0); Blood Urea Nitrogen 16 mg/dL (9-23); Calcium 9.8 mg/dL (8.7-10.4); Carbon Dioxide 27 mmol/L (20-31); Chloride 102 mmol/L (98-107); Sodium 140 mmol/L (136-145)
[2024-09-18 06:51] LABS: Albumin 4.2 g/dL (3.2-4.8); Bilirubin, Total 0.6 mg/dL (0.2-1.0); Total Protein 7.1 g/dL (5.7-8.2)
[2024-09-18 06:53] LABS: Glucose 102 mg/dL (74-106)
[2024-09-18 06:55] LABS: Basophils # (auto) 0.1 10 ^3/uL (0-0.2); Basophils % (auto) 0.5 % (0.0-2.0); Eosinophils # (auto) 0.2 10 ^3/uL (0-0.8); Eosinophils % (auto) 1.4 % (0.0-7.0); Hematocrit 36.9 % (36.0-46.0); Hemoglobin 12.6 g/dL (12.2-16.2); Lymphocytes # (auto) 2.5 10 ^3/uL (0.4-5.4); Lymphocytes % (auto) 23.5 % (10.0-50.0); Mean Corpuscular Hemoglobin 28.8 pg (28.0-32.0); Mean Corpuscular Hgb Conc. 34.1 g/dL (32.0-36.0); Mean Corpuscular Volume 84.6 fL (80.0-100.0); Monocytes # (auto) 0.7 10 ^3/uL (0-1.3); Monocytes % (auto) 6.9 % (0.0-12.0); Neutrophils # (auto) 7.3 10 ^3/uL (1.6-8.6); Neutrophils % (auto) 67.7 % (37.0-80.0); Nucleated Red Blood Cells % 0.1 %; Platelet Count (auto) 310 10^3/uL (140-450); Red Blood Cells 4.36 10^6/uL (4.0-5.20); Red Cell Distribution Width 14.5 % (11.8-14.3); White Blood Cell 10.8 10^3/uL (4.4-10.8)
--- NOTE | 2024-09-18 06:55 | DVH ---
CHEST RADIOGRAPH Indication: Pneumonia Technique: Single frontal view of the chest was obtained Comparison: XY CHEST XRAY 1 VIEW on DOS: 09/17/24, XY CHEST XRAY 1 VIEW on DOS: 09/16/24, XY CHEST XRA Y 1 VIEW on DOS: 09/14/24, XY CHEST XRAY 1 VIEW on DOS: 09/13/24, XY CHEST XRAY 1 VIEW on DOS: 09/12/24, XY CHEST XRAY 1 VIEW on DOS: 09/17/24 FINDINGS: Lines and Tubes: Right PICC with tip in the SVC. Lungs: No focal consolidation. Pleura: No effusion. No pneumothorax. Cardiomediastinal contours: Unremarkable Bones: No acute osseous abnormality. IMPRESSION: No acute disease.
[2024-09-18 07:02] LABS: Alanine Aminotransferase 159 U/L (7-40); Aspartate Aminotransferase 45 U/L (13-40)
--- NOTE | 2024-09-18 09:32 | DVHPN2 ---
Progress Note Date Seen: Sep 18, 2024 Has the PT tested + for MRSA If YES, has PT been informed?: Yes Medical Necessity Reason Pt with a Central, PICC or Fol: Yes The following are medically ne: Central Line, Gutierrez Catheter Reason for gutierrez catheter: Strict I&O Subjective Patient reports: No new complaints, Feels better Review of Systems: HEENT:Normal, CVS:Normal, RESPIRATORY:Normal, GI:Normal, :Normal, MSK:Abnormal Objective vital signs Vital Sign Date Time Temp Pulse Resp B/P (MAP) Pulse Ox O2 Delivery O2 Flow Rate FiO2 09/18/24 09:00 100.0 83 18 147/88 (107) 100 100.0 09/17/24 20:00 Nasal Cannula* 1 24 Total Intake and Output 09/17/24 09/17/24 09/18/24 15:00 23:00 07:00 Intake Total 850 ml 150 ml Output Total 1430 ml 500 ml Balance -580 ml -350 ml medications Current Medications Medications Dose Ordered Sig/Snow Route Start Time Stop Time Status Last Admin Dose Admin Sodium Chloride 10 ml Q8HR IV 08/14/24 22:00 09/18/24 05:26 10 ML Insulin Human (Reg)/Sodium Chloride 100 ml 1945 IV 08/21/24 19:45 UNV Hydralazine HCl 10 mg Q6HP PRN IV 08/25/24 17:30 09/16/24 09:31 10 MG Diagnostic Test (Pha) 1 strip Q6HR 08/28/24 12:00 09/18/24 05:26 1 STRIP Dextrose 50 ml UD PRN IV 08/28/24 09:15 Meropenem 50 ml @ 17 mls/hr Q8HR IV 09/11/24 22:00 09/18/24 08:56 17 MLS/HR Enoxaparin Sodium 40 mg DAILY SC 09/12/24 10:00 09/18/24 08:57 40 MG Albuterol 2.5 mg Q6HP PRN NEB 09/12/24 16:00 Cancel Ipratropium [place] 0.5 mg Q6HPRN PRN NEB 09/12/24 16:00 Cancel Acetaminophen 1,000 mg Q4HPRN PRN IV 09/13/24 15:00 09/16/24 13:45 1,000 MG Ibuprofen 400 mg Q6HP PRN PO 09/13/24 15:00 09/17/24 21:20 400 MG Sodium Chloride 1 spr TID PRN EACHNOSTRI 09/14/24 17:00 09/16/24 17:18 1 SPR Pantoprazole Sodium 40 mg DAILY@0600 PO 09/17/24 06:00 09/18/24 05:27 40 MG Ondansetron HCl 4 mg TID PRN IV 09/17/24 15:15 Lorazepam 1 mg Q4HP PRN IV 09/17/24 19:30 Examination: GENERAL:Normal, HEENT:Normal, NECK:Normal, LUNGS:Normal, CVS:Normal, ABDOMEN:Abnormal (WOUNDS, SOLIS DRAINS), MSK:Abnormal, SKIN:Abnormal (ABDOMINAL WOUND) laboratory and microbiology Laboratory Tests 09/18/24 05:34 Test 09/18/24 05:34 Range/Units Serum Glucose 102 74-106 mg/dL Problem List/Assessment/Plan Problem List/Assessment/Plan 09/02/24 wound clean dry and intact, pressures 7 , serous fluid from drains, continue current treatment 09/16/24 - extubated, abdomen non distended, non tender, SOLIS drains drainage serous fluid, bowel movements,, wound clean and well approximated, clear liquids physical therapy 09/18/24 ABDOMEN SOFT, NON DISTENDED, NON TENDER, WOUND CLEAN DRY AND INTACT, SOLIS DRAIN SEROUS FLUIDS, PHYSICAL THERAPY, INCENTIVE SPIROMETER, FULL LIQUID DIET Plan discussed with: Patient Dietary Evaluation Review Comments: 1) Increase TPN to meet at least 75% of estimated needs 2) Advance pt diet when medically feasible to a Low Fat diet 3) Continue current plan of care Expected Outcomes/Goals: 1) Pt diet to advance 2) Pt labs to improve 3) F/U in 2-3 days WARNER HILL NP Sep 18, 2024 09:32
[2024-09-18] MEDS: LORazepam 2MG/ML-1ML VIAL IV PRN (15:08)
--- NOTE | 2024-09-18 20:30 | DVHPNRES ---
Progress Note Date Seen: Sep 18, 2024 Resident Creating Document: BOZENA TRENT RESDIENT Has the PT tested + for MRSA If YES, has PT been informed?: Yes Medical Necessity Reason Pt with a Central, PICC or Fol: Yes The following are medically ne: Central Line, Gutierrez Catheter Reason for gutierrez catheter: Strict I&O Subjective Review of Systems This a 34-year-old female with a history of hyperlipidemia (HLD) presented to the emergency department with severe epigastric pain since 1 day before admission. She reported having crampy pain spreading throughout her abdomen, along with nausea, vomiting, and chills. She denies fever, chest pain, shortness of breath, fatigue, and weakness. family history positive for hypertriglyceridemia in paternal side With father affected. Noted previous extensive skin rash/ allergy to fenofibrate and presently on atorvastatin 40 mg daily only. Today, patient seen and examined at the bedside. Patient is calm and lying on the bed. The patient was put on nasal cannula with 2 L of oxygen could maintain 94% of oxygen saturation. Objective vital signs Vital Sign Date Time Temp Pulse Resp B/P (MAP) Pulse Ox O2 Delivery O2 Flow Rate FiO2 09/18/24 16:36 98.2 104 18 147/92 (110) 99 98.2 09/18/24 08:00 Room Air* 0 21 Total Intake and Output 09/17/24 09/17/24 09/18/24 15:00 23:00 07:00 Intake Total 850 ml 150 ml Output Total 1430 ml 500 ml Balance -580 ml -350 ml medications Current Medications Medications Dose Ordered Sig/Snow Route Start Time Stop Time Status Last Admin Dose Admin Sodium Chloride 10 ml Q8HR IV 08/14/24 22:00 09/18/24 14:13 10 ML Insulin Human (Reg)/Sodium Chloride 100 ml 1945 IV 08/21/24 19:45 UNV Hydralazine HCl 10 mg Q6HP PRN IV 08/25/24 17:30 09/16/24 09:31 10 MG Dextrose 50 ml UD PRN IV 08/28/24 09:15 Meropenem 50 ml @ 17 mls/hr Q8HR IV 09/11/24 22:00 09/18/24 16:43 17 MLS/HR Enoxaparin Sodium 40 mg DAILY SC 09/12/24 10:00 09/18/24 08:57 40 MG Albuterol 2.5 mg Q6HP PRN NEB 09/12/24 16:00 Cancel Ipratropium [place] 0.5 mg Q6HPRN PRN NEB 09/12/24 16:00 Cancel Acetaminophen 1,000 mg Q4HPRN PRN IV 09/13/24 15:00 09/16/24 13:45 1,000 MG Ibuprofen 400 mg Q6HP PRN PO 09/13/24 15:00 09/17/24 21:20 400 MG Sodium Chloride 1 spr TID PRN EACHNOSTRI 09/14/24 17:00 09/16/24 17:18 1 SPR Pantoprazole Sodium 40 mg DAILY@0600 PO 09/17/24 06:00 09/18/24 05:27 40 MG Ondansetron HCl 4 mg TID PRN IV 09/17/24 15:15 Lorazepam 1 mg Q4HP PRN IV 09/17/24 19:30 09/18/24 15:08 1 MG Examination General: RASS 0 , afebrile, mucosae are moist Cardiovascular: Normal S1 and S2. No murmurs, gallops or rubs Respiratory: Equal bilateral airway entree. Bilateral mild diffuse crackles Abdomen: Soft, nontender, no organomegaly, normal bowel sounds MSK/skin: Mobilization of limbs cannot be evaluated. Skin is dry and warm. Neurological: No apparent motor no sensitive deficits. Pupils are isocoric and reactive laboratory and microbiology Laboratory Tests 09/18/24 05:34 Test 09/18/24 05:34 Range/Units Serum Glucose 102 74-106 mg/dL Microbiology Date/Time Source Procedure Growth Status 09/14/24 15:25 Blood Blood Culture - Preliminary NO GROWTH AFTER 72 HOURS OF INCUBATION. Resulted 09/14/24 13:25 Voided Urine Urine Culture - Final Presumptive Dariana albicans Complete 09/07/24 12:49 Stool Stool Culture - Final Complete 09/07/24 12:49 Stool Shiga Toxin I & II - Final Complete 09/04/24 11:21 Bronchial Washings Gram Stain - Final Complete 09/04/24 11:21 Respiratory Culture - Final Presumptive Dariana albicans Complete 08/15/24 13:32 Nose MRSA Screen - Final Complete Labs and/or images reviewed: Labs reviewed by me, Image(s) reviewed by me Problem List/Assessment/Plan Problem List/Assessment/Plan This a 34-year-old female with a history of hyperlipidemia presented to the emergency department with severe epigastric pain since 1 day before admission. Admitted on 08/14 and intubated on 08/16 NEURO: Acute metabolic encephalopathy, likely due to pancreatitis leading to abdominal compartment syndrome and respiratory failure Patient is successfully extubated on 09/13 Occasional agitation, injection Ativan 1mg Q4 hr p.r.n. CARDIOVASCULAR: Hypertensive urgency, controlled Injection hydralazine 10 mg q.6 hours as needed PULMONARY: Acute hypercapnic/hypoxic respiratory failure due to hypertriglyceridemia induced pancreatitis leading to abdominal compartment syndrome and respiratory failure/pneumonia Pneumonia likely due to Gram-negative Gram-positive bacteria ARDS, likely due to pancreatitis Pleural effusion Bronchoscopy performed on 09/04/2024, there was some secretion on right lower lobe, bronchial lavage of right and left lower bronchi was performed, and the sample was sent for the culture sensitivity, Gram stain and AFB Bilateral pleural effusion with bibasilar atelectasis Blood culture from 09/02/[address] scan on 09/05 shows small to moderate left pleural effusion Discontinue azithromycin, used for 7 days, discontinue Zyvox used for 14 days Chest x-rays shows prominent bronchovascular marking, improvement in compared to previous films Continue meropenem started on 09/11 PT two times a day GI: Abdominal compartment syndrome, status post decompression status post decompressive laparotomy (08/18/2024) re-exploratory irrigation of abdomen on 08/20/2024 Surgery on the board, recommended conservative management Daily monitoring of intra-abdominal pressure GI evaluated the patient and recommended Dulcolax suppository and stopped Reglan CT abdomen repeated on 09/05 and shows significant peripancreatic fluid/edema with [id number] ascites GI ppx: Protonix 40 mg p.o. daily Reglan 10 mg t.i.d. PRN RENAL: UTI, likely hemodynamically mediated, improved ID: Meropenem and doxycycline was stopped on 09/02/2024 Blood culture From 09/02/2024 shows no growth after 48 hour Urine culture from 09/02/2024 shows no growth Sputum culture from 08/16 shows beta strep 9 a, non B Bronchial alveolar lavage culture results from 09/04 shows presumptive Dariana albicans Stool results from 09/07 shows Campylobacter antigen Blood culture from 09/14 shows no growth after 48 hours Urine cultures from 09/14 shows presumptive Dariana albicans Spikes of Mild fever, acetaminophen and ibuprofen as needed, repeat UA Metabolic: Hyponatremia, improved Hypocalcemia, improved, continue calcitriol 1 mcg IV daily Hypophosphatemia, improved Hypomagnesemia, improved Hypokalemia, normalized Hyperkalemia, hypokalemia treatment given, normalized Hypomagnesemia, supplement HEME: Severe anemia, likely due to intra-abdominal bleeding Six pint of blood has been transfused ENDOCRINE: Familiar hypertriglyceridemia Hypertriglyceridemia induced pancreatitis was treated with insulin drip Daily triglycerides monitoring Patient is sensitive to fenofibrate LINES/DRAINS/ACCESS: ETT, put on 08/16/24 IV access: Right PICC line, placed on 08/20/2024 Transurethral Gutierrez catheter, placed on 08/20/2024 Drips: No pressor and sedative DVT prophylaxis: Lovenox 40 mg daily Diet: Mechanical soft diet Disposition: DC tele, Transfer to Med/Surg CODE STATUS: Full code- time spent 19 mins Patient's status discussed with the patient, mother at the bedside. Case discussed with Dr. Cochran Plan discussed with: Patient, Other (RN) My Orders My Orders Orders - BOZENA TRENT RESDIBOB Procedure Category Date Status Time Pt Request For Service PT 09/18/24 Logged 16:29 Urinalysis LAB 09/18/24 Logged 16:30 Complete Blood Count LAB 09/19/24 Verified 04:00 Comprehensive LAB 09/19/24 Verified Metabolic Panel 04:00 Chest Xray 1 View XY 09/19/24 Transmitted 04:00 Dietary Evaluation Review Comments: 1) Increase TPN to meet at least 75% of estimated needs 2) Advance pt diet when medically feasible to a Low Fat diet 3) Continue current plan of care Expected Outcomes/Goals: 1) Pt diet to advance 2) Pt labs to improve 3) F/U in 2-3 days Date of Service: Sep 18, 2024 Billing Provider: GUS COCHRAN MD Common Visit Codes: [id number] INP/OBS CARE(HIGH) Secondary Visit Codes: [id number] CARE PLAN 30 MINUTES BOZENA TRENT RESDIENT Sep 18, 2024 20:30 GUS COCHRAN MD Sep 19, 2024 13:13
[2024-09-19] VITALS (10 sets, daily range): BP systolic 104–172; BP diastolic 45–98; PULSE 75–116; RESP 18–21; TEMP 98.5–101.5; O2SAT 97–100
[2024-09-19 06:51] LABS: Basophils # (auto) 0 10 ^3/uL (0-0.2); Basophils % (auto) 0.3 % (0.0-2.0); Eosinophils # (auto) 0.2 10 ^3/uL (0-0.8); Eosinophils % (auto) 2.1 % (0.0-7.0); Hematocrit 35.7 % (36.0-46.0); Lymphocytes # (auto) 2.6 10 ^3/uL (0.4-5.4); Lymphocytes % (auto) 23.7 % (10.0-50.0); Mean Corpuscular Hemoglobin 28.6 pg (28.0-32.0); Mean Corpuscular Hgb Conc. 33.8 g/dL (32.0-36.0); Mean Corpuscular Volume 84.8 fL (80.0-100.0); Monocytes # (auto) 0.9 10 ^3/uL (0-1.3); Monocytes % (auto) 8.3 % (0.0-12.0); Neutrophils # (auto) 7.1 10 ^3/uL (1.6-8.6); Neutrophils % (auto) 65.6 % (37.0-80.0); Platelet Count (auto) 265 10^3/uL (140-450); Red Cell Distribution Width 14.6 % (11.8-14.3); White Blood Cell 10.8 10^3/uL (4.4-10.8)
[2024-09-19 07:14] LABS: Alkaline Phosphatase 78 U/L (46-116); Anion Gap 7 (5-15); Aspartate Aminotransferase 36 U/L (13-40); BUN/Creatinine Ratio 33.3 (10.0-20.0); Blood Urea Nitrogen 18 mg/dL (9-23); Calcium 9.7 mg/dL (8.7-10.4); Carbon Dioxide 26 mmol/L (20-31); Chloride 106 mmol/L (98-107); Glucose 103 mg/dL (74-106); Potassium 3.8 mmol/L (3.5-5.1); Sodium 139 mmol/L (136-145)
[2024-09-19 07:15] LABS: Bilirubin, Total 0.5 mg/dL (0.2-1.0); Total Protein 6.9 g/dL (5.7-8.2)
[2024-09-19 07:25] LABS: Alanine Aminotransferase 117 U/L (7-40)
--- NOTE | 2024-09-19 07:35 | DVH ---
CLINICAL INFORMATION: 34 years old, Female; Pneumonia. TECHNIQUE: Single AP portable chest radiograph was obtained. COMPARISON: XY CHEST XRAY 1 VIEW on DOS: 09/18/24, XY CHEST XRAY 1 VIEW on DOS: 09/17/24, XY CHEST XR AY 1 VIEW on DOS: 09/16/24 FINDINGS: Atelectasis and/or developing consolidation of the right lung base, slightly increased compared to th e prior exam. Nonspecific mild perihilar interstitial opacities. Slight increase in patchy opacity in the left perihilar region. No pneumothorax. No other significant interval change. Stable satisfacto ry positioning of the right PICC. IMPRESSION: Slight interval increase in opacities in the right lung base and left perihilar region, possible atel ectasis and/or developing consolidation.
--- NOTE | 2024-09-19 13:51 | DVHPNRES ---
Progress Note Date Seen: Sep 19, 2024 Resident Creating Document: BOZENA TRENT RESDIENT Has the PT tested + for MRSA If YES, has PT been informed?: Yes Medical Necessity Reason Pt with a Central, PICC or Fol: Yes The following are medically ne: Central Line, Gutierrez Catheter Reason for gutierrez catheter: Strict I&O Subjective Review of Systems This a 34-year-old female with a history of hyperlipidemia (HLD) presented to the emergency department with severe epigastric pain since 1 day before admission. She reported having crampy pain spreading throughout her abdomen, along with nausea, vomiting, and chills. She denies fever, chest pain, shortness of breath, fatigue, and weakness. family history positive for hypertriglyceridemia in paternal side With father affected. Noted previous extensive skin rash/ allergy to fenofibrate and presently on atorvastatin 40 mg daily only. Today, patient seen and examined at the bedside. Patient is calm and lying on the bed. The patient was put on nasal cannula with 2 L of oxygen could maintain 94% of oxygen saturation. Patient reports: No new complaints Changes from previous H/P or p: No Changes Objective vital signs Vital Sign Date Time Temp Pulse Resp B/P (MAP) Pulse Ox O2 Delivery O2 Flow Rate FiO2 09/19/24 08:48 98.5 85 19 125/79 (94) 97 98.5 09/19/24 08:00 Room Air* 0 21 Total Intake and Output 09/18/24 09/18/24 09/19/24 15:00 23:00 07:00 Intake Total 630 ml 150 ml Output Total 350 ml 240 ml Balance 280 ml -90 ml medications Current Medications Medications Dose Ordered Sig/Snow Route Start Time Stop Time Status Last Admin Dose Admin Sodium Chloride 10 ml Q8HR IV 08/14/24 22:00 09/19/24 05:17 10 ML Insulin Human (Reg)/Sodium Chloride 100 ml 1945 IV 08/21/24 19:45 UNV Hydralazine HCl 10 mg Q6HP PRN IV 08/25/24 17:30 09/16/24 09:31 10 MG Dextrose 50 ml UD PRN IV 08/28/24 09:15 Meropenem 50 ml @ 17 mls/hr Q8HR IV 09/11/24 22:00 09/19/24 05:18 17 MLS/HR Enoxaparin Sodium 40 mg DAILY SC 09/12/24 10:00 09/19/24 09:03 40 MG Albuterol 2.5 mg Q6HP PRN NEB 09/12/24 16:00 Cancel Ipratropium [place] 0.5 mg Q6HPRN PRN NEB 09/12/24 16:00 Cancel Acetaminophen 1,000 mg Q4HPRN PRN IV 09/13/24 15:00 09/16/24 13:45 1,000 MG Ibuprofen 400 mg Q6HP PRN PO 09/13/24 15:00 09/19/24 01:14 400 MG Sodium Chloride 1 spr TID PRN EACHNOSTRI 09/14/24 17:00 09/16/24 17:18 1 SPR Pantoprazole Sodium 40 mg DAILY@0600 PO 09/17/24 06:00 09/19/24 05:17 40 MG Ondansetron HCl 4 mg TID PRN IV 09/17/24 15:15 Lorazepam 1 mg Q4HP PRN IV 09/17/24 19:30 09/19/24 09:03 1 MG Examination General: RASS 0 , afebrile, mucosae are moist Cardiovascular: Normal S1 and S2. No murmurs, gallops or rubs Respiratory: Equal bilateral airway entree. Bilateral mild diffuse crackles Abdomen: Soft, nontender, no organomegaly, normal bowel sounds MSK/skin: Mobilization of limbs cannot be evaluated. Skin is dry and warm. Neurological: No apparent motor no sensitive deficits. Pupils are isocoric and reactive laboratory and microbiology Laboratory Tests 09/19/24 06:14 Test 09/19/24 06:14 Range/Units Serum Glucose 103 74-106 mg/dL Microbiology Date/Time Source Procedure Growth Status 09/14/24 15:25 Blood Blood Culture - Preliminary NO GROWTH AFTER 72 HOURS OF INCUBATION. Resulted 09/14/24 13:25 Voided Urine Urine Culture - Final Presumptive Dariana albicans Complete 09/07/24 12:49 Stool Stool Culture - Final Complete 09/07/24 12:49 Stool Shiga Toxin I & II - Final Complete 09/04/24 11:21 Bronchial Washings Gram Stain - Final Complete 09/04/24 11:21 Respiratory Culture - Final Presumptive Dariana albicans Complete 08/15/24 13:32 Nose MRSA Screen - Final Complete Labs and/or images reviewed: Labs reviewed by me, Image(s) reviewed by me Problem List/Assessment/Plan Problem List/Assessment/Plan This a 34-year-old female with a history of hyperlipidemia presented to the emergency department with severe epigastric pain since 1 day before admission. Admitted on 08/14 and intubated on 08/16 NEURO: Acute metabolic encephalopathy, likely due to pancreatitis leading to abdominal compartment syndrome and respiratory failure Patient is successfully extubated on 09/13 Occasional agitation, injection Ativan 1mg Q4 hr p.r.n. Injection haloperidol 5 mg, given 1 time on 09/19 CARDIOVASCULAR: Hypertensive urgency, controlled Injection hydralazine 10 mg q.6 hours as needed PULMONARY: Acute hypercapnic/hypoxic respiratory failure due to hypertriglyceridemia induced pancreatitis leading to abdominal compartment syndrome and respiratory failure/pneumonia Pneumonia likely due to Gram-negative Gram-positive bacteria ARDS, likely due to pancreatitis Pleural effusion Bronchoscopy performed on 09/04/2024, there was some secretion on right lower lobe, bronchial lavage of right and left lower bronchi was performed, and the sample was sent for the culture sensitivity, Gram stain and AFB Bilateral pleural effusion with bibasilar atelectasis Blood culture from 09/02/[address] scan on 09/05 shows small to moderate left pleural effusion Discontinue azithromycin, used for 7 days, discontinue Zyvox used for 14 days Chest x-rays shows prominent bronchovascular marking, improvement in compared to previous films Continue meropenem started on 09/11 PT two times a day GI: Abdominal compartment syndrome, status post decompression status post decompressive laparotomy (08/18/2024) re-exploratory irrigation of abdomen on 08/20/2024 Surgery on the board, recommended conservative management Daily monitoring of intra-abdominal pressure GI evaluated the patient and recommended Dulcolax suppository and stopped Reglan CT abdomen repeated on 09/05 and shows significant peripancreatic fluid/edema with [id number] ascites GI ppx: Protonix 40 mg p.o. daily Reglan 10 mg t.i.d. PRN RENAL: UTI, likely hemodynamically mediated, improved ID: Meropenem and doxycycline was stopped on 09/02/2024 Blood culture From 09/02/2024 shows no growth after 48 hour Urine culture from 09/02/2024 shows no growth Sputum culture from 08/16 shows beta strep 9 a, non B Bronchial alveolar lavage culture results from 09/04 shows presumptive Dariana albicans Stool results from 09/07 shows Campylobacter antigen Blood culture from 09/14 shows no growth after 48 hours Urine cultures from 09/14 shows presumptive Dariana albicans Spikes of Mild fever, acetaminophen and ibuprofen as needed, repeat UA Metabolic: Hyponatremia, improved Hypocalcemia, improved, continue calcitriol 1 mcg IV daily Hypophosphatemia, improved Hypomagnesemia, improved Hypokalemia, normalized Hyperkalemia, hypokalemia treatment given, normalized Hypomagnesemia, supplement HEME: Severe anemia, likely due to intra-abdominal bleeding Six pint of blood has been transfused ENDOCRINE: Familiar hypertriglyceridemia Hypertriglyceridemia induced pancreatitis was treated with insulin drip Daily triglycerides monitoring Patient is sensitive to fenofibrate LINES/DRAINS/ACCESS: ETT, put on 08/16/24 IV access: Right PICC line, placed on 08/20/2024 Transurethral Gutierrez catheter, placed on 08/20/2024 Drips: No pressor and sedative DVT prophylaxis: Lovenox 40 mg daily Diet: Mechanical soft diet Disposition: Telemetry CODE STATUS: Full code- time spent in advance care planning was 19 mins Patient's status discussed with the patient, mother at the bedside. Case discussed with Dr. Cochran Plan discussed with: Patient, Other (RN) My Orders My Orders Orders - BOZENA TRENT RESDIBOB Procedure Category Date Status Time Pt Request For Service PT 09/18/24 Logged 16:29 Urinalysis LAB 09/18/24 Logged 16:30 Chest Xray 1 View XY 09/19/24 Resulted 04:00 Dietary Evaluation Review Comments: 1) Increase TPN to meet at least 75% of estimated needs 2) Advance pt diet when medically feasible to a Low Fat diet 3) Continue current plan of care Expected Outcomes/Goals: 1) Pt diet to advance 2) Pt labs to improve 3) F/U in 2-3 days Date of Service: Sep 19, 2024 Billing Provider: GUS COCHRAN MD Common Visit Codes: [id number] INP/OBS CARE(HIGH) Secondary Visit Codes: [id number] CARE PLAN 30 MINUTES BOZENA TRENT RESDIENT Sep 19, 2024 13:51 GUS COCHRAN MD Sep 22, 2024 12:13
[2024-09-19 17:11] LABS: Urine Bacteria None Seen /hpf (None Seen)
[2024-09-19 17:29] LABS: Urine Blood Negative /uL (Negative); Urine Budding Yeast FEW /hpf (None Seen); Urine Clarity Turbid (Clear); Urine Color Yellow (Yellow); Urine Mucus MODERATE (None Seen); Urine Protein, UAD 1+ (Negative); Urine Specific Gravity 1.033 (1.001-1.035); Urine Urobilinogen 2 mg/dL (Negative); Urine WBC 25 /hpf (0 - 5)
[2024-09-19] MEDS: HALOPERIDOL LACTATE 5 MG/ML INJ VIAL IM ONE (22:36)
[2024-09-20] VITALS (8 sets, daily range): BP systolic 141–152; BP diastolic 77–95; PULSE 71–113; RESP 18–21; TEMP 97.8–99; O2SAT 97–100
[2024-09-20] MEDS: HALOPERIDOL LACTATE 5 MG/ML INJ VIAL IM PRN (01:13)
[2024-09-20 05:50] LABS: Basophils # (auto) 0.1 10 ^3/uL (0-0.2); Basophils % (auto) 0.7 % (0.0-2.0); Eosinophils # (auto) 0.2 10 ^3/uL (0-0.8); Eosinophils % (auto) 2.4 % (0.0-7.0); Hematocrit 36.1 % (36.0-46.0); Hemoglobin 12.4 g/dL (12.2-16.2); Lymphocytes # (auto) 2.1 10 ^3/uL (0.4-5.4); Mean Corpuscular Hemoglobin 29.4 pg (28.0-32.0); Mean Corpuscular Hgb Conc. 34.4 g/dL (32.0-36.0); Mean Corpuscular Volume 85.4 fL (80.0-100.0); Monocytes # (auto) 0.7 10 ^3/uL (0-1.3); Monocytes % (auto) 7.3 % (0.0-12.0); Neutrophils # (auto) 5.8 10 ^3/uL (1.6-8.6); Neutrophils % (auto) 65.6 % (37.0-80.0); Nucleated Red Blood Cells % 0.2 %; Platelet Count (auto) 224 10^3/uL (140-450); Red Blood Cells 4.23 10^6/uL (4.0-5.20); Red Cell Distribution Width 14.3 % (11.8-14.3); White Blood Cell 8.9 10^3/uL (4.4-10.8)
[2024-09-20 06:15] LABS: Albumin 4.1 g/dL (3.2-4.8); Alkaline Phosphatase 81 U/L (46-116); Anion Gap 9 (5-15); Aspartate Aminotransferase 38 U/L (13-40); BUN/Creatinine Ratio 29.8 (10.0-20.0); Bilirubin, Total 0.5 mg/dL (0.2-1.0); Blood Urea Nitrogen 14 mg/dL (9-23); Calcium 9.8 mg/dL (8.7-10.4); Carbon Dioxide 25 mmol/L (20-31); Glucose 96 mg/dL (74-106); Potassium 3.8 mmol/L (3.5-5.1); Sodium 142 mmol/L (136-145); Total Protein 6.9 g/dL (5.7-8.2)
[2024-09-20 06:37] LABS: Alanine Aminotransferase 119 U/L (7-40); Chloride 108 mmol/L (98-107)
--- NOTE | 2024-09-20 10:14 | DVHPN2 ---
Progress Note Date Seen: Sep 20, 2024 Has the PT tested + for MRSA If YES, has PT been informed?: Yes Medical Necessity Reason Pt with a Central, PICC or Fol: Yes The following are medically ne: Central Line, Gutierrez Catheter Reason for gutierrez catheter: Strict I&O Objective vital signs Vital Sign Date Time Temp Pulse Resp B/P (MAP) Pulse Ox O2 Delivery O2 Flow Rate FiO2 09/20/24 09:00 98.8 73 21 141/77 (98) 100 98.8 09/19/24 20:00 Nasal Cannula* 2 28 Total Intake and Output 09/19/24 09/19/24 09/20/24 15:00 23:00 07:00 Intake Total 50 ml 630 ml 175 ml Output Total 400 ml 150 ml Balance 50 ml 230 ml 25 ml medications Current Medications Medications Dose Ordered Sig/Snow Route Start Time Stop Time Status Last Admin Dose Admin Sodium Chloride 10 ml Q8HR IV 08/14/24 22:00 09/20/24 05:23 10 ML Insulin Human (Reg)/Sodium Chloride 100 ml 5 IV 08/21/24 19:45 UNV Hydralazine HCl 10 mg Q6HP PRN IV 08/25/24 17:30 09/16/24 09:31 10 MG Dextrose 50 ml UD PRN IV 08/28/24 09:15 Meropenem 50 ml @ 17 mls/hr Q8HR IV 09/11/24 22:00 09/20/24 05:39 17 MLS/HR Enoxaparin Sodium 40 mg DAILY SC 09/12/24 10:00 09/20/24 09:10 40 MG Albuterol 2.5 mg Q6HP PRN NEB 09/12/24 16:00 Cancel Ipratropium [place] 0.5 mg Q6HPRN PRN NEB 09/12/24 16:00 Cancel Acetaminophen 1,000 mg Q4HPRN PRN IV 09/13/24 15:00 09/16/24 13:45 1,000 MG Ibuprofen 400 mg Q6HP PRN PO 09/13/24 15:00 09/20/24 09:18 400 MG Sodium Chloride 1 spr TID PRN EACHNOSTRI 09/14/24 17:00 09/16/24 17:18 1 SPR Pantoprazole Sodium 40 mg DAILY@0600 PO 09/17/24 06:00 12/12/24 05:17 40 MG Ondansetron HCl 4 mg TID PRN IV 09/17/24 15:15 Lorazepam 1 mg Q4HP PRN IV 09/17/24 19:30 09/20/24 09:19 1 MG Haloperidol Lactate 2.5 mg Q6HP PRN IM 09/20/24 01:00 09/20/24 01:13 2.5 MG laboratory and microbiology Laboratory Tests 09/20/24 04:53 Test 09/20/24 04:53 Range/Units Serum Glucose 96 74-106 mg/dL Problem List/Assessment/Plan Problem List/Assessment/Plan 08/19/24 ABDOMINAL PRESXURE IMPROVED, DRESSING DRY, SEROUS DRAINAGE, WILL TAKE TO O.R. MONDAY TO LAVAGE AND RE DRESS, POSSIBLY PLACE FASCIAL SUTURES 08/22/24 ABDOMEN LESS TENSE, DRESSING APPLIED, WILL CONSIDER CLOSURE OF ABDOMEN SOON. 08/23/24 abdomen still quite tense, leukocytosis, fever, urine output adequate, needs to have abdominal pressure determined q 6 hours(informed nurse), possibly return to OR on Monday to close the abdomen if pressures normal. 08/25/24 ABDOMINAL PRESSURE 7, LEUKOCYTOSIS AND FEVER PERSIST, WILL ATTEMPT ABDOMINAL CLOSURE TOMORROW 08/27/24 FEBRILE, ELEVATED WBC, ABDOMEN NONDISTENDED, GOOD URINE OUTPUT, DRESSING DRY 08/28/24 PATIENT'S MOTHER AT BEDSIDE, QUESTIONS ANSWERED, ABDOMEN LESS TENSE, PRESSURE 20, WOUND CLEAN AND WELL APPROXIMATED, KEEP ON ROCURONIUM DRIP TILL ABDOMINAL PRESSURES LESS THAN 15, GOOD URINE OUTPUT 08/29/24 wound clean and well approximated, drainage serous, decreasing volume, labs reviewed, no changes indicated 08/30/24 slow but noticeable improvement, abdomen less tense, wound clean and well approximated, good urine output, no bowel activity yet, continue as is 10/31/23 afebrile, abdomen softer, abdominal pressure reported as 7, wound clean, well approximated, drainage serous, ok to wean off rocuronium and begin weaning off ventilator 09/01/24 ESSENTIALLYT UNCHANGED, WOUND CLEAN, DRAINAGE SEROUS, ABDOMINAL PRESSURE 7 TO 9, CONTINUE IS 09/05/24 abdomen soft, non distended, pressures normalized, good urine output marisol drainage decreasing, she is to have a CT scan today, wound clean and well approximated. :surgically" stable 09/15/24 extubated, cooperative, abdomen non distended, non tender, drainage serous. could start po clear liquids. wound clean and well approximated 09/20/24 patient was asleep, nurse reported normal bowel activity and food tolerance. patient afebrile Plan discussed with: Other Dietary Evaluation Review Comments: 1) Increase TPN to meet at least 75% of estimated needs 2) Advance pt diet when medically feasible to a Low Fat diet 3) Continue current plan of care Expected Outcomes/Goals: 1) Pt diet to advance 2) Pt labs to improve 3) F/U in 2-3 days MARILYN OJEDA MD Sep 20, 2024 10:14
--- NOTE | 2024-09-20 10:22 | DVH ---
CLINICAL INFORMATION: 34 years old, Female; Pneumonia. TECHNIQUE: Single AP portable chest radiograph was obtained. COMPARISON: XY CHEST XRAY 1 VIEW on DOS: 09/19/24, XY CHEST XRAY 1 VIEW on DOS: 09/18/24, XY CHEST XR AY 1 VIEW on DOS: 09/17/24 FINDINGS: Stable satisfactory positioning of the right PICC. Similar-appearing elevation of the right hemidiaph ragm. Patchy opacities in the right lung base and left perihilar region, unchanged. No pneumothorax. No other significant interval change. IMPRESSION: No significant interval change as detailed above.
--- NOTE | 2024-09-20 19:07 | DVHPNRES ---
Progress Note Date Seen: Sep 20, 2024 Resident Creating Document: Purnima Allen Has the PT tested + for MRSA If YES, has PT been informed?: Yes Medical Necessity Reason Pt with a Central, PICC or Fol: Yes The following are medically ne: Central Line, Gutierrez Catheter Reason for gutierrez catheter: Strict I&O Subjective Review of Systems This a 34-year-old female with a history of hyperlipidemia (HLD) presented to the emergency department with severe epigastric pain since 1 day before admission. She reported having crampy pain spreading throughout her abdomen, along with nausea, vomiting, and chills. She denies fever, chest pain, shortness of breath, fatigue, and weakness. family history positive for hypertriglyceridemia in paternal side With father affected. Noted previous extensive skin rash/ allergy to fenofibrate and presently on atorvastatin 40 mg daily only. Today, patient seen and examined at the bedside. Patient is calm and lying on the bed. The patient was put on nasal cannula with 2 L of oxygen could maintain 94% of oxygen saturation. Objective vital signs Vital Sign Date Time Temp Pulse Resp B/P (MAP) Pulse Ox O2 Delivery O2 Flow Rate FiO2 09/20/24 17:00 97.8 92 18 149/95 (113) 99 97.8 09/20/24 08:00 Nasal Cannula* 2 28 Total Intake and Output 09/19/24 09/19/24 09/20/24 15:00 23:00 07:00 Intake Total 50 ml 630 ml 175 ml Output Total 400 ml 150 ml Balance 50 ml 230 ml 25 ml medications Current Medications Medications Dose Ordered Sig/Snow Route Start Time Stop Time Status Last Admin Dose Admin Sodium Chloride 10 ml Q8HR IV 08/14/24 22:00 09/20/24 14:00 10 ML Insulin Human (Reg)/Sodium Chloride 100 ml 1945 IV 08/21/24 19:45 UNV Hydralazine HCl 10 mg Q6HP PRN IV 08/25/24 17:30 09/16/24 09:31 10 MG Dextrose 50 ml UD PRN IV 08/28/24 09:15 Meropenem 50 ml @ 17 mls/hr Q8HR IV 09/11/24 22:00 09/20/24 14:53 17 MLS/HR Enoxaparin Sodium 40 mg DAILY SC 09/12/24 10:00 09/20/24 09:10 40 MG Albuterol 2.5 mg Q6HP PRN NEB 09/12/24 16:00 Cancel Ipratropium [place] 0.5 mg Q6HPRN PRN NEB 09/12/24 16:00 Cancel Acetaminophen 1,000 mg Q4HPRN PRN IV 09/13/24 15:00 09/16/24 13:45 1,000 MG Ibuprofen 400 mg Q6HP PRN PO 09/13/24 15:00 09/20/24 09:18 400 MG Sodium Chloride 1 spr TID PRN EACHNOSTRI 09/14/24 17:00 09/16/24 17:18 1 SPR Pantoprazole Sodium 40 mg DAILY@0600 PO 09/17/24 06:00 09/19/24 05:17 40 MG Ondansetron HCl 4 mg TID PRN IV 09/17/24 15:15 Lorazepam 1 mg Q4HP PRN IV 09/17/24 19:30 09/20/24 09:19 1 MG Haloperidol Lactate 2.5 mg Q6HP PRN IM 09/20/24 01:00 09/20/24 01:13 2.5 MG Quetiapine Fumarate 25 mg DAILY PO 09/21/24 10:00 Examination General: RASS 0 , afebrile, mucosae are moist Cardiovascular: Normal S1 and S2. No murmurs, gallops or rubs Respiratory: Equal bilateral airway entree. Bilateral mild diffuse crackles Abdomen: Soft, nontender, no organomegaly, normal bowel sounds MSK/skin: Mobilization of limbs cannot be evaluated. Skin is dry and warm. Neurological: No apparent motor no sensitive deficits. Pupils are isocoric and reactive laboratory and microbiology Laboratory Tests 09/20/24 04:53 Test 09/20/24 04:53 Range/Units Serum Glucose 96 74-106 mg/dL Microbiology Date/Time Source Procedure Growth Status 09/14/24 15:25 Blood Blood Culture - Final NO GROWTH AFTER 5 DAYS OF INCUBATION. Complete 09/14/24 13:25 Voided Urine Urine Culture - Final Presumptive Dariana albicans Complete 09/07/24 12:49 Stool Stool Culture - Final Complete 09/07/24 12:49 Stool Shiga Toxin I & II - Final Complete 09/04/24 11:21 Bronchial Washings Gram Stain - Final Complete 09/04/24 11:21 Respiratory Culture - Final Presumptive Dariana albicans Complete 08/15/24 13:32 Nose MRSA Screen - Final Complete Labs and/or images reviewed: Labs reviewed by me, Image(s) reviewed by me Problem List/Assessment/Plan Problem List/Assessment/Plan This a 34-year-old female with a history of hyperlipidemia presented to the emergency department with severe epigastric pain since 1 day before admission. Admitted on 08/14 and intubated on 08/16 NEURO: Acute metabolic encephalopathy, likely due to pancreatitis leading to abdominal compartment syndrome and respiratory failure Possible Post-Intensive Care Syndrome (PICS) Patient is successfully extubated on 09/13 Occasional agitation, injection Ativan 1mg Q4 hr p.r.n. Quetiapine 25 mg daily CARDIOVASCULAR: Hypertensive urgency, controlled Injection hydralazine 10 mg q.6 hours as needed PULMONARY: Acute hypercapnic/hypoxic respiratory failure due to hypertriglyceridemia induced pancreatitis leading to abdominal compartment syndrome and respiratory failure/pneumonia Pneumonia likely due to Gram-negative Gram-positive bacteria ARDS, likely due to pancreatitis Pleural effusion Bronchoscopy performed on 09/04/2024, there was some secretion on right lower lobe, bronchial lavage of right and left lower bronchi was performed, and the sample was sent for the culture sensitivity, Gram stain and AFB Bilateral pleural effusion with bibasilar atelectasis Blood culture from 09/02/[address] scan on 09/05 shows small to moderate left pleural effusion Discontinue azithromycin, used for 7 days, discontinue Zyvox used for 14 days Chest x-rays shows prominent bronchovascular marking, improvement in compared to previous films Continue meropenem started on 09/11 PT two times a day GI: Abdominal compartment syndrome, status post decompression status post decompressive laparotomy (08/18/2024) re-exploratory irrigation of abdomen on 08/20/2024 Surgery on the board, recommended conservative management Daily monitoring of intra-abdominal pressure GI evaluated the patient and recommended Dulcolax suppository and stopped Reglan CT abdomen repeated on 09/05 and shows significant peripancreatic fluid/edema with [id number] ascites GI ppx: Protonix 40 mg p.o. daily Reglan 10 mg t.i.d. PRN RENAL: UTI, likely hemodynamically mediated, improved ID: Meropenem and doxycycline was stopped on 09/02/2024 Blood culture From 09/02/2024 shows no growth after 48 hour Urine culture from 09/02/2024 shows no growth Sputum culture from 08/16 shows beta strep 9 a, non B Bronchial alveolar lavage culture results from 09/04 shows presumptive Dariana albicans Stool results from 09/07 shows Campylobacter antigen Blood culture from 09/14 shows no growth after 48 hours Urine cultures from 09/14 shows presumptive Dariana albicans Spikes of Mild fever, acetaminophen and ibuprofen as needed, repeat UA Metabolic: Hyponatremia, improved Hypocalcemia, improved, continue calcitriol 1 mcg IV daily Hypophosphatemia, improved Hypomagnesemia, improved Hypokalemia, normalized Hyperkalemia, hypokalemia treatment given, normalized Hypomagnesemia, supplement HEME: Severe anemia, likely due to intra-abdominal bleeding Six pint of blood has been transfused ENDOCRINE: Familiar hypertriglyceridemia Hypertriglyceridemia induced pancreatitis was treated with insulin drip Daily triglycerides monitoring Patient is sensitive to fenofibrate LINES/DRAINS/ACCESS: ETT, put on 08/16/24 IV access: Right PICC line, placed on 08/20/2024 Transurethral Gutierrez catheter, placed on 08/20/2024 Drips: No pressor and sedative DVT prophylaxis: Lovenox 40 mg daily Diet: Mechanical soft diet Disposition: Telemetry CODE STATUS: Full code Patient's status discussed with the patient, mother at the bedside. Patient currently has possible Post-Intensive Care Syndrome (PICS), is confused and has hallucination, can not cooperate with the physical therapy, and stable to be discharged. Case discussed with Dr. Bang Plan discussed with: Other (RN) My Orders My Orders Orders - BOZENA TRENT Procedure Category Date Status Time Chest Xray 1 View XY 09/20/24 Resulted 08:03 Quetiapine Fumarate PHA 09/21/24 In Process Tablet (Seroquel Tab 10:00 Dietary Evaluation Review Comments: 1) Increase TPN to meet at least 75% of estimated needs 2) Advance pt diet when medically feasible to a Low Fat diet 3) Continue current plan of care Expected Outcomes/Goals: 1) Pt diet to advance 2) Pt labs to improve 3) F/U in 2-3 days Date of Service: Sep 20, 2024 Billing Provider: DARWIN BANG MD Common Visit Codes: [id number] INP/OBS CARE(HIGH) BOZENA TRENT Sep 20, 2024 19:07 DARWIN BANG MD Sep 21, 2024 09:28
[2024-09-21] VITALS (8 sets, daily range): BP systolic 138–157; BP diastolic 34–102; PULSE 82–113; RESP 18–19; TEMP 96.7–99.4; O2SAT 95–100
--- NOTE | 2024-09-21 06:03 | DVH ---
CHEST RADIOGRAPH Indication: Pneumonia Technique: Single frontal view of the chest was obtained COMPARISON: XY CHEST XRAY 1 VIEW on DOS: 09/20/24, XY CHEST XRAY 1 VIEW on DOS: 09/19/24, XY CHEST XR AY 1 VIEW on DOS: 09/18/24 FINDINGS: Lines and Tubes: Right PICC in satisfactory position. Lungs: Congestion Pleura: No effusion. No pneumothorax. Cardiomediastinal contours: Unremarkable Bones: Unremarkable IMPRESSION: No significant interval change.
[2024-09-21 07:01] LABS: Basophils # (auto) 0 10 ^3/uL (0-0.2); Basophils % (auto) 0.5 % (0.0-2.0); Eosinophils # (auto) 0.3 10 ^3/uL (0-0.8); Hematocrit 34.6 % (36.0-46.0); Hemoglobin 11.9 g/dL (12.2-16.2); Lymphocytes # (auto) 2.5 10 ^3/uL (0.4-5.4); Lymphocytes % (auto) 24.8 % (10.0-50.0); Mean Corpuscular Hemoglobin 29.3 pg (28.0-32.0); Mean Corpuscular Hgb Conc. 34.3 g/dL (32.0-36.0); Mean Corpuscular Volume 85.3 fL (80.0-100.0); Monocytes # (auto) 0.7 10 ^3/uL (0-1.3); Monocytes % (auto) 7.1 % (0.0-12.0); Neutrophils # (auto) 6.4 10 ^3/uL (1.6-8.6); Neutrophils % (auto) 64.6 % (37.0-80.0); Nucleated Red Blood Cells % 0.1 %; Platelet Count (auto) 239 10^3/uL (140-450); Red Blood Cells 4.06 10^6/uL (4.0-5.20); Red Cell Distribution Width 14.4 % (11.8-14.3); White Blood Cell 9.9 10^3/uL (4.4-10.8)
[2024-09-21 07:18] LABS: Alkaline Phosphatase 78 U/L (46-116); Anion Gap 9 (5-15); BUN/Creatinine Ratio 28.6 (10.0-20.0); Blood Urea Nitrogen 14 mg/dL (9-23); Calcium 9.7 mg/dL (8.7-10.4); Carbon Dioxide 25 mmol/L (20-31); Glucose 95 mg/dL (74-106); Potassium 3.7 mmol/L (3.5-5.1); Sodium 141 mmol/L (136-145)
[2024-09-21 07:19] LABS: Albumin 3.9 g/dL (3.2-4.8); Aspartate Aminotransferase 34 U/L (13-40); Bilirubin, Total 0.5 mg/dL (0.2-1.0); Total Protein 6.7 g/dL (5.7-8.2)
[2024-09-21 07:23] LABS: Alanine Aminotransferase 112 U/L (7-40); Chloride 107 mmol/L (98-107)
[2024-09-21] MEDS: QUEtiapine FUMARATE 25 MG TAB PO SCH (09:18)
--- NOTE | 2024-09-21 11:56 | DVHPN2 ---
Assessment/Plan Assessment/Plan Progress note Subjective 34 F admitted for pancreatitis from hypeortrig, complicated by abdominal compartment syndrome, ARDS, intubated, now extubated with PICS Seen by me today during rounds deconditioned, cooperative Objective Physical exam alert oriented laying flat s1 s2 RRR no murmur abdomen soft nontender no LE edema muscle athropy Assessment and plan pancreatitis due to hypertrigliceridemia with abdominal compartment syndrome s/p decompression PICS and severe deconditioning severe metabolic acidosis resolved metabolic encephephalopathy resolved acute hypoxic respiratory failure resolved ARDS pleural effusion RISHI ATN resolved severe anemia s/p transfusion maintain spo2 >92% delirium precaution c/w PT dispo planning to SNF Replete electrolytes Diet reg DVT prophylaxis lovenox Plan discussed with: Patient Date of Service: Sep 21, 2024 Billing Provider: MARY FERMIN MD Common Visit Codes: [id number] INP/OBS CARE(HIGH) MARY FERMIN MD Sep 21, 2024 11:56
[2024-09-22 01:00] VITALS: BP 138/90; PULSE 86; RESP 18; O2SAT 100
[2024-09-22 05:00] VITALS: BP 145/88; PULSE 75; RESP 16; TEMP 98.3; O2SAT 98
[2024-09-22 08:00] VITALS: PULSE 99
--- NOTE | 2024-09-22 14:44 | DVHPN2 ---
Assessment/Plan Assessment/Plan Progress note Subjective 34 F admitted for pancreatitis from hypeortrig, complicated by abdominal compartment syndrome, ARDS, intubated, now extubated with PICS Seen by me today during rounds deconditioned, cooperative Objective Physical exam alert oriented laying flat s1 s2 RRR no murmur abdomen soft nontender no LE edema muscle athropy Assessment and plan pancreatitis due to hypertrigliceridemia with abdominal compartment syndrome s/p decompression PICS and severe deconditioning severe metabolic acidosis resolved metabolic encephephalopathy resolved acute hypoxic respiratory failure resolved ARDS pleural effusion RISHI ATN resolved severe anemia s/p transfusion maintain spo2 >92% delirium precaution c/w PT dispo planning to SNF dc gutierrez Replete electrolytes Diet reg DVT prophylaxis lovenox Plan discussed with: Patient My Orders Orders - MARY FERMIN MD Procedure Category Date Status Time Kidney US 09/22/24 Logged 14:37 Discontinue Gutierrez CARLITA 09/22/24 In Process Catheter 14:37 Bladder Scan ORDERS 09/22/24 Transmitted 14:37 Date of Service: Sep 22, 2024 Billing Provider: MARY FERMIN MD Common Visit Codes: [id number] INP/OBS CARE(HIGH) MARY FERMIN MD Sep 22, 2024 14:44
--- NOTE | 2024-09-22 15:28 | DVH ---
INDICATION: flank pain TECHNIQUE: Multiple real-time sonographic images of the kidneys and bladder were obtained. COMPARISON: None FINDINGS: The right kidney measures 12.3 cm in length. The right renal echogenicity, contour and cortical thick ness are within normal limits. No hydronephrosis or large masses/calculi are seen. The left kidney measures 12.3 cm in length. The left renal echogenicity, contour, and cortical thickn ess are within normal limits. No hydronephrosis or large masses/calculi are seen. Sparrow catheter in the urinary bladder. IMPRESSION: 1. Unremarkable examination.
[2024-09-22 20:00] VITALS: PULSE 89
[2024-09-23] VITALS (7 sets, daily range): BP systolic 133–155; BP diastolic 87–97; PULSE 84–93; RESP 17–22; TEMP 97.6–99.4; O2SAT 96–97
[2024-09-23 07:38] LABS: Chloride 106 mmol/L (98-107); Sodium 140 mmol/L (136-145)
[2024-09-23 07:39] LABS: Anion Gap 7 (5-15); Calcium 9.5 mg/dL (8.7-10.4); Carbon Dioxide 27 mmol/L (20-31)
[2024-09-23 07:41] LABS: Basophils # (auto) 0 10 ^3/uL (0-0.2); Basophils % (auto) 0.6 % (0.0-2.0); Eosinophils # (auto) 0.3 10 ^3/uL (0-0.8); Eosinophils % (auto) 3.9 % (0.0-7.0); Hematocrit 34.6 % (36.0-46.0); Hemoglobin 11.9 g/dL (12.2-16.2); Lymphocytes # (auto) 2.1 10 ^3/uL (0.4-5.4); Lymphocytes % (auto) 27.9 % (10.0-50.0); Mean Corpuscular Hemoglobin 29.5 pg (28.0-32.0); Mean Corpuscular Hgb Conc. 34.3 g/dL (32.0-36.0); Mean Corpuscular Volume 86.1 fL (80.0-100.0); Monocytes # (auto) 0.5 10 ^3/uL (0-1.3); Monocytes % (auto) 7.1 % (0.0-12.0); Neutrophils # (auto) 4.5 10 ^3/uL (1.6-8.6); Neutrophils % (auto) 60.5 % (37.0-80.0); Platelet Count (auto) 212 10^3/uL (140-450); Red Blood Cells 4.02 10^6/uL (4.0-5.20); Red Cell Distribution Width 14.7 % (11.8-14.3); White Blood Cell 7.4 10^3/uL (4.4-10.8)
[2024-09-23 07:44] LABS: BUN/Creatinine Ratio 24.5 (10.0-20.0); Blood Urea Nitrogen 12 mg/dL (9-23); Glucose 96 mg/dL (74-106)
--- NOTE | 2024-09-23 12:07 | DVHPN2 ---
Progress Note Date Seen: Sep 23, 2024 Has the PT tested + for MRSA If YES, has PT been informed?: Yes Medical Necessity Reason Pt with a Central, PICC or Fol: No Subjective Patient reports: No new complaints Review of Systems: HEENT:Normal, CVS:Normal, RESPIRATORY:Normal, GI:Normal, :Normal, MSK:Normal, NEURO:Normal Objective vital signs Vital Sign Date Time Temp Pulse Resp B/P (MAP) Pulse Ox O2 Delivery O2 Flow Rate FiO2 09/23/24 08:00 Room Air* 0 21 09/23/24 08:00 84 09/23/24 05:00 98.7 18 136/92 (107) 96 98.7 Total Intake and Output 09/22/24 09/22/24 09/23/24 15:00 23:00 07:00 Intake Total 50 ml 250 ml 500 ml Output Total 600 ml Balance 50 ml 250 ml -100 ml medications Current Medications Medications Dose Ordered Sig/Snow Route Start Time Stop Time Status Last Admin Dose Admin Sodium Chloride 10 ml Q8HR IV 08/14/24 22:00 09/23/24 05:24 10 ML Insulin Human (Reg)/Sodium Chloride 100 ml 1945 IV 08/21/24 19:45 UNV Hydralazine HCl 10 mg Q6HP PRN IV 08/25/24 17:30 09/16/24 09:31 10 MG Dextrose 50 ml UD PRN IV 08/28/24 09:15 Enoxaparin Sodium 40 mg DAILY SC 09/12/24 10:00 09/23/24 10:03 40 MG Albuterol 2.5 mg Q6HP PRN NEB 09/12/24 16:00 Cancel Ipratropium [place] 0.5 mg Q6HPRN PRN NEB 09/12/24 16:00 Cancel Acetaminophen 1,000 mg Q4HPRN PRN IV 09/13/24 15:00 09/16/24 13:45 1,000 MG Ibuprofen 400 mg Q6HP PRN PO 09/13/24 15:00 09/23/24 11:31 400 MG Sodium Chloride 1 spr TID PRN EACHNOSTRI 09/14/24 17:00 09/16/24 17:18 1 SPR Pantoprazole Sodium 40 mg DAILY@0600 PO 09/17/24 06:00 09/23/24 05:24 40 MG Ondansetron HCl 4 mg TID PRN IV 09/17/24 15:15 Lorazepam 1 mg Q4HP PRN IV 09/17/24 19:30 09/20/24 09:19 1 MG Haloperidol Lactate 2.5 mg Q6HP PRN IM 09/20/24 01:00 09/20/24 01:13 2.5 MG Quetiapine Fumarate 25 mg DAILY PO 09/21/24 10:00 09/23/24 10:02 25 MG Examination: GENERAL:Normal, HEENT:Normal, NECK:Normal, LUNGS:Normal, CVS:Normal, ABDOMEN:Normal, MSK:Normal, SKIN:Normal, NEURO:Normal, :Normal laboratory and microbiology Laboratory Tests 09/23/24 06:35 Test 09/23/24 06:35 Range/Units Serum Glucose 96 74-106 mg/dL Microbiology Date/Time Source Procedure Growth Status 09/14/24 15:25 Blood Blood Culture - Final NO GROWTH AFTER 5 DAYS OF INCUBATION. Complete 09/14/24 13:25 Voided Urine Urine Culture - Final Presumptive Dariana albicans Complete 09/07/24 12:49 Stool Stool Culture - Final Complete 09/07/24 12:49 Stool Shiga Toxin I & II - Final Complete 09/04/24 11:21 Bronchial Washings Gram Stain - Final Complete 09/04/24 11:21 Respiratory Culture - Final Presumptive Dariana albicans Complete 08/15/24 13:32 Nose MRSA Screen - Final Complete Problem List/Assessment/Plan Problem List/Assessment/Plan This a 34-year-old female with a history of hyperlipidemia presented to the emergency department with severe epigastric pain since 1 day before admission. Admitted on 08/14 and intubated on 08/16 NEURO: Acute metabolic encephalopathy, likely due to pancreatitis leading to abdominal compartment syndrome and respiratory failure Patient is successfully extubated on 09/13 Occasional agitation, injection Ativan 1mg Q4 hr p.r.n. Injection haloperidol 5 mg, given 1 time on 09/19 CARDIOVASCULAR: Hypertensive urgency, controlled Injection hydralazine 10 mg q.6 hours as needed PULMONARY: Acute hypercapnic/hypoxic respiratory failure due to hypertriglyceridemia induced pancreatitis leading to abdominal compartment syndrome and respiratory failure/pneumonia Pneumonia likely due to Gram-negative Gram-positive bacteria ARDS, likely due to pancreatitis Pleural effusion Bronchoscopy performed on 09/04/2024, there was some secretion on right lower lobe, bronchial lavage of right and left lower bronchi was performed, and the sample was sent for the culture sensitivity, Gram stain and AFB Bilateral pleural effusion with bibasilar atelectasis Blood culture from 09/02/[address] scan on 09/05 shows small to moderate left pleural effusion Discontinue azithromycin, used for 7 days, discontinue Zyvox used for 14 days Chest x-rays shows prominent bronchovascular marking, improvement in compared to previous films Continue meropenem started on 09/11 PT two times a day GI: Abdominal compartment syndrome, status post decompression status post decompressive laparotomy (08/18/2024) re-exploratory irrigation of abdomen on 08/20/2024 Surgery on the board, recommended conservative management Daily monitoring of intra-abdominal pressure GI evaluated the patient and recommended Dulcolax suppository and stopped Reglan CT abdomen repeated on 09/05 and shows significant peripancreatic fluid/edema with [id number] ascites GI ppx: Protonix 40 mg p.o. daily Reglan 10 mg t.i.d. PRN RENAL: UTI, likely hemodynamically mediated, improved ID: Meropenem and doxycycline was stopped on 09/02/2024 Blood culture From 09/02/2024 shows no growth after 48 hour Urine culture from 09/02/2024 shows no growth Sputum culture from 08/16 shows beta strep 9 a, non B Bronchial alveolar lavage culture results from 09/04 shows presumptive Dariana albicans Stool results from 09/07 shows Campylobacter antigen Blood culture from 09/14 shows no growth after 48 hours Urine cultures from 09/14 shows presumptive Dariana albicans Spikes of Mild fever, acetaminophen and ibuprofen as needed, repeat UA Metabolic: Hyponatremia, improved Hypocalcemia, improved, continue calcitriol 1 mcg IV daily Hypophosphatemia, improved Hypomagnesemia, improved Hypokalemia, normalized Hyperkalemia, hypokalemia treatment given, normalized Hypomagnesemia, supplement HEME: Severe anemia, likely due to intra-abdominal bleeding Six pint of blood has been transfused ENDOCRINE: Familiar hypertriglyceridemia Hypertriglyceridemia induced pancreatitis was treated with insulin drip Daily triglycerides monitoring Patient is sensitive to fenofibrate lopid LINES/DRAINS/ACCESS: ETT, put on 08/16/24 IV access: Right PICC line, placed on 08/20/2024 Transurethral Sparrow catheter, placed on 08/20/2024 Drips: No pressor and sedative DVT prophylaxis: Lovenox 40 mg daily Diet: Mechanical soft diet Disposition: dc Telemetry CODE STATUS: Full code- time spent in advance care planning was 19 mins Patient's status discussed with the patient, mother at the bedside. Case discussed with Dr. Cochran Plan discussed with: Patient, Other (father) My Orders My Orders Orders - GUS COCHRAN MD Procedure Category Date Status Time Discontinue Tele CARLITA 09/23/24 Transmitted 12:03 Transfer Orders XFER 09/23/24 Transmitted 12:03 * Automatic Mold Sander CONS 09/23/24 Transmitted Consult Gemfibrozil Tablet PHA 09/23/24 Transmitted (Lopid Tablet) 22:00 Dietary Evaluation Review Comments: 1) Increase TPN to meet at least 75% of estimated needs 2) Advance pt diet when medically feasible to a Low Fat diet 3) Continue current plan of care Expected Outcomes/Goals: 1) Pt diet to advance 2) Pt labs to improve 3) F/U in 2-3 days Date of Service: Sep 23, 2024 Billing Provider: GUS COCHRAN MD Common Visit Codes: 47037-[id number] INP/OBS CARE(HIGH) Secondary Visit Codes: [id number] CARE PLAN 30 MINUTES GUS COCHRAN MD Sep 23, 2024 12:07
--- NOTE | 2024-09-23 13:10 | DVHPN2 ---
Progress Note - Dictate Date Seen: Sep 23, 2024 Has the PT tested + for MRSA If YES, has PT been informed?: Yes Medical Necessity Reason Pt with a Central, PICC or Fol: No Subjective Covering for Dr. Darby. no complaints. norberto po well. vital signs Vital Sign Date Time Temp Pulse Resp B/P (MAP) Pulse Ox O2 Delivery O2 Flow Rate FiO2 09/23/24 08:00 Room Air* 0 21 09/23/24 08:00 84 09/23/24 05:00 98.7 18 136/92 (107) 96 98.7 Total Intake and Output 09/22/24 09/22/24 09/23/24 15:00 23:00 07:00 Intake Total 50 ml 250 ml 500 ml Output Total 600 ml Balance 50 ml 250 ml -100 ml medications Current Medications Medications Dose Ordered Sig/Snow Route Start Time Stop Time Status Last Admin Dose Admin Sodium Chloride 10 ml Q8HR IV 08/14/24 22:00 09/23/24 05:24 10 ML Insulin Human (Reg)/Sodium Chloride 100 ml 1945 IV 08/21/24 19:45 UNV Hydralazine HCl 10 mg Q6HP PRN IV 08/25/24 17:30 09/16/24 09:31 10 MG Dextrose 50 ml UD PRN IV 08/28/24 09:15 Albuterol 2.5 mg Q6HP PRN NEB 09/12/24 16:00 Cancel Ipratropium [place] 0.5 mg Q6HPRN PRN NEB 09/12/24 16:00 Cancel Ibuprofen 400 mg Q6HP PRN PO 09/13/24 15:00 09/23/24 11:31 400 MG Sodium Chloride 1 spr TID PRN EACHNOSTRI 09/14/24 17:00 09/16/24 17:18 1 SPR Pantoprazole Sodium 40 mg DAILY@0600 PO 09/17/24 06:00 09/23/24 05:24 40 MG Ondansetron HCl 4 mg TID PRN IV 09/17/24 15:15 Lorazepam 1 mg Q4HP PRN IV 09/17/24 19:30 09/20/24 09:19 1 MG Quetiapine Fumarate 25 mg DAILY PO 09/21/24 10:00 09/23/24 10:02 25 MG Gemfibrozil 600 mg Q12HR PO 09/23/24 22:00 Acetaminophen 650 mg Q6HP PRN PO 09/23/24 13:00 UNV objective GEN: NAD ABD: incisions healing well. bilateral SOLIS drains with min (around 20 mL) serous drainage. soft. NT/ND laboratory and microbiology Laboratory Tests 09/23/24 06:35 Test 09/23/24 06:35 Range/Units Serum Glucose 96 74-106 mg/dL Assessment/Plan A: 1. s/p decompressive laparotomy x 3 P: 1. removed bilateral JPs. 2. f/u with Dr. Darby. Dietary Evaluation Review Comments: 1) Increase TPN to meet at least 75% of estimated needs 2) Advance pt diet when medically feasible to a Low Fat diet 3) Continue current plan of care Expected Outcomes/Goals: 1) Pt diet to advance 2) Pt labs to improve 3) F/U in 2-3 days Plan discussed with: Patient KRISS JUARES MD Sep 23, 2024 13:10
[2024-09-23] MEDS: ACETAMINOPHEN 325 MG TAB PO PRN (13:40)
[2024-09-23] MEDS: GEMFIBROZIL 600 MG TAB PO SCH (21:28)
[2024-09-24 05:00] VITALS: BP 152/96; PULSE 80; RESP 18; TEMP 98.5; O2SAT 96
[2024-09-24 08:54] VITALS: BP 128/78; PULSE 87; RESP 16; TEMP 99.3; O2SAT 96
--- NOTE | 2024-09-24 11:10 | DVHDS2 ---
Discharge Summary Date of Admission Aug 14, 2024 at 21:34 Date of Discharge: Sep 24, 2024 Labs/Diagnostic Data: Laboratory Results Test 09/23/24 06:35 09/21/24 05:58 09/19/24 15:50 09/18/24 05:39 White Blood Count 7.4 10^3/uL (4.4-10.8) Red Blood Count 4.02 10^6/uL (4.0-5.20) Hemoglobin 11.9 g/dL (12.2-16.2) Hematocrit 34.6 % (36.0-46.0) Mean Corpuscular Volume 86.1 fL (80.0-100.0) Mean Corpuscular Hemoglobin 29.5 pg (28.0-32.0) Mean Corpuscular Hemoglobin Concent 34.3 g/dL (32.0-36.0) Red Cell Distribution Width 14.7 % (11.8-14.3) Platelet Count 212 10^3/uL (140-450) Mean Platelet Volume 7.6 fL (6.9-10.8) Neutrophils (%) (Auto) 60.5 % (37.0-80.0) Lymphocytes (%) (Auto) 27.9 % (10.0-50.0) Monocytes (%) (Auto) 7.1 % (0.0-12.0) Eosinophils (%) (Auto) 3.9 % (0.0-7.0) Basophils (%) (Auto) 0.6 % (0.0-2.0) Neutrophils # (Auto) 4.5 10 ^3/uL (1.6-8.6) Lymphocytes # (Auto) 2.1 10 ^3/uL (0.4-5.4) Monocytes # (Auto) 0.5 10 ^3/uL (0-1.3) Eosinophils # (Auto) 0.3 10 ^3/uL (0-0.8) Basophils # (Auto) 0 10 ^3/uL (0-0.2) Nucleated Red Blood Cells 0.0 % Sodium Level 140 mmol/L (136-145) Potassium Level 4.0 mmol/L (3.5-5.1) Chloride Level 106 mmol/L (98-107) Carbon Dioxide Level 27 mmol/L (20-31) Anion Gap 7 (5-15) Blood Urea Nitrogen 12 mg/dL (9-23) Creatinine 0.49 mg/dL (0.550-1.02) Glomerular Filtration Rate Calc 128 mL/min (>90) BUN/Creatinine Ratio 24.5 (10.0-20.0) Serum Glucose 96 mg/dL (74-106) Calcium Level 9.5 mg/dL (8.7-10.4) Total Bilirubin 0.5 mg/dL (0.2-1.0) Aspartate Amino Transferase (AST) 34 U/L (13-40) Alanine Aminotransferase (ALT) 112 U/L (7-40) Alkaline Phosphatase 78 U/L (46-116) Total Protein 6.7 g/dL (5.7-8.2) Albumin 3.9 g/dL (3.2-4.8) Urine Color Yellow (Yellow) Urine Clarity Turbid (Clear) Urine pH 6.0 (5.0-9.0) Urine Specific [place] 1.033 (1.001-1.035) Urine Protein 1+ (Negative) Urine Ketones Trace (Negative) Urine Blood Negative /uL (Negative) Urine Nitrite Negative (Negative) Urine Bilirubin Negative (Negative) Urine Urobilinogen 2 mg/dL (Negative) Urine Leukocyte Esterase 1+ /uL (Negative) Urine RBC <1 /hpf (0 - 4) Urine WBC 25 /hpf (0 - 5) Urine Squamous Epithelial Cells Few /hpf (<5) Urine Bacteria None seen /hpf (None Seen) Urine Mucus Moderate (None Seen) Urine Yeast (Budding) Few /hpf (None Seen) Urine Glucose Normal mg/dL (Normal) POC Glucose 111 mg/dl (70-106) Test 09/17/24 03:03 09/13/24 03:24 09/12/24 09:00 09/12/24 02:59 Triglycerides Level 323 mg/dL (< 150) Platelet Estimate [place] Large Platelets Few Stomatocytes Moderate Blood Gas Specimen Type Arterial Blood Gas Sample Site Left radial Blood Gas Patient Temperature 37.0 Arterial Blood Date Drawn [id number] Arterial Blood pH 7.438 (7.350-7.450) Arterial Blood Partial Pressure CO2 44.7 mmHg (32.0-45.0) Arterial Blood Partial Pressure O2 97.6 mmHg (83.0-108.0) Arterial Blood HCO3 29.5 mmol/L (21.0-28.0) Arterial Blood Oxygen Saturation 96.9 % (94.0-98.0) Arterial Blood Base Excess 4.8 mmol/L (-2.0-3.0) Arterial Blood Oxyhemoglobin 96.2 % (94.0-98.0) Arterial Blood Carboxyhemoglobin 0.2 % (0.5-1.5) Arterial Blood Methemoglobin 0.5 % (0.0-1.5) Homer Test Modified Blood Gas Total Hemoglobin 10.20 g/dL (12.0-16.0) Blood Gas Modality Vent - cpap Blood Gas Spontaneous Rate 24 FiO2 % 30.0 Blood Gas Spontaneous Tidal Volume 500 Blood Gas Pressure Support 8 Blood Gas PEEP or CPAP 6.0 Differential Total Cells Counted 100.0 (100) Neutrophils % (Manual) 57 (37.0-80.0) Band Neutrophils % (Manual) 3 Lymphocytes % (Manual) 28 (10.0-50.0) Monocytes % (Manual) 8 (0-12) Eosinophils % (Manual) 2 (0-7) Basophils % (Manual) 0 (0.0-2.0) Metamyelocytes % (manual) 1 Myelocytes % (Manual) 1 Promyelocytes % (Manual) 0 Blast Cells % (Manual) 0 Reactive Lymphocytes 0 Test 09/11/24 06:44 09/10/24 03:45 09/09/24 07:18 09/09/24 03:20 Blood Gas Set Respiration Rate 22.0 Blood Gas Tidal Volume 450.0 Phosphorus Level 5.5 mg/dL (2.4-5.1) Magnesium Level 1.8 mg/dL (1.6-2.6) Blood Gas Critical Value Read Back Yes Blood Gas Notified Whom Blood Gas Notified Time [id number] Blood Gas Notified By Cardiovascular Invasive Specialist wolf Clumped Platelets Few Test 09/07/24 12:49 09/06/24 03:24 09/04/24 03:25 09/01/24 03:10 Stool pH 6.5 (7.0-7.5) Stool Occult Blood Positive (Negative) Stool Occult Blood Sample #3 (Negative) Stool for White Cells Moderate Lipase 35 U/L (12-53) Red Blood Cell Morphology Normal Prothrombin Time 12.5 sec (9.3-11.8) Prothrombin Time INR 1.19 (0.9-1.15) Activated Partial Thromboplast Time 32.5 SEC (24.5-34.5) Test 08/31/24 07:53 08/29/24 03:17 08/24/24 03:32 08/23/24 03:11 Blood Gas Inspiratory Pressure 26.0 Bl Gas Inspiratory/Expiratory Ratio 1:2.6 Specimen Drawn By [email or web address] rt Anisocytosis (manual) Slight Cholesterol Level 114 mg/dL (< 200) LDL Cholesterol 31 mg/dL (< 100) HDL Cholesterol 18 mg/dL (40-59) Microcytosis Slight Hypochromasia (manual) Slight Test 08/22/24 10:33 08/22/24 03:22 08/21/24 09:45 08/19/24 12:10 Amylase Level 26 U/L (30-118) Schistocytes Few Lactic Acid Level 1.2 mmol/L (0.4-2.0) Serum Osmolality 267 mOsm/kg (278-298) Test 08/19/24 10:00 08/18/24 05:57 08/16/24 12:55 08/16/24 06:30 Creatine Kinase 366 U/L (34-145) Parathyroid Hormone (Intact) 396.1 pg/mL (18.4-80.1) Urine Creatinine 242.96 mg/dL (30.0-125.0) Urine Protein/Creatinine Ratio 1.09 Urine Sodium 13 mmol/L (40-220) Urine Total Protein 265.4 mg/dL (1-14) Urine Opiates Screen Pos (NEGATIVE) Urine Fentanyl Screen Pos (NEGATIVE) Urine Barbiturates Screen Neg (NEGATIVE) Urine Phencyclidine Screen Neg (NEGATIVE) Urine Amphetamines Screen Neg (NEGATIVE) Urine Benzodiazepines Screen Pos (NEGATIVE) Urine Cocaine Screen Neg (NEGATIVE) Urine Cannabinoids Screen Neg (NEGATIVE) Venous Blood pH 7.384 (7.320-7.430) Venous Blood pCO2 at Patient Temp 34.4 mmHg (38.0-54.0) Venous Blood pO2 at Patient Temp < 36.5 mmHg (23.0-48.0) Venous Blood HCO3 20.1 mmol/L (22.0-29.0) Venous Blood Base Excess -4.1 mmol/L (-2.0-3.0) Test 08/15/24 16:12 08/15/24 07:00 08/14/24 21:45 Lactate Dehydrogenase 1370 U/L (120-246) Beta HCG, Quantitative 0.3 mIU/mL (1.5-4.2) Beta-Hydroxybutyric Acid 0.358 mmol/L (< 0.4) Hemoglobin A1c 4.9 % A1C (<5.7) Vitamin B12 Level 945 pg/mL (211-911) Vitamin D 25-Hydroxy 4.4 ng/mL (30.0-100) Thyroid Stimulating Hormone (TSH) 0.74 uIU/mL (0.55-4.78) Plasma/Serum Blood Alcohol 3.4 mg/dL (<10) Other Laboratory Tests 09/23/24 06:35 Brief Hx & Hospital Course: SEE DICTATED NOTE Condition at Discharge: Fair Final Diagnosis/Problems List ACUTE PANCREATITIS Discharge Disposition: Home Discharge Instruct/Medications Diet: Cardiac 2g Na,low cholest Diet comment: LOW SUGAR/CARB DIET Activity: No Restrictions, As Tolerated Follow Up/Referral: SCHEDULE APPT WITH SURGERY IN 2 WKS Medications: SCRIPT TO PHARMACY Discharge Statement: "Patient was advised to return to the ER or call 911 if any headaches, dizziness, shortness of breath, chest pain, abdominal pain, bleeding, fevers, or worsening of medical condition. Patient was counseled about treatment plan, medications, possible side effects, patientverbalized understanding. All questions were answered to the best of my ability. This discharge took greater then 30 minutes in planning, reviewing documentation, counseling the patient, and discussing with other team members." ASSESSMENT ASSESSMENT Assessment ACUTE PANCREATITIS Date of Service: Sep 24, 2024 Billing Provider: GUS COCHRAN MD Common Visit Codes: [id number] DISCH DAY >30min GUS COCHRAN MD Sep 24, 2024 11:10
[2024-09-24] MEDS ORDERED: GEMF600T PO (11:12)
[2024-09-24] MEDS ORDERED: PANT40TA2 PO (11:12)
--- NOTE | 2024-09-24 11:25 | DVHDS ---
DATE OF DISCHARGE: 09/24/2024 HISTORY OF PRESENT ILLNESS: The patient is a 34-year-old lady who was admitted with complaints of severe epigastric pain after she ate pizza and has previous history of hyperlipidemia. HOSPITAL COURSE: The patient had a prolonged ICU stay. The patient had initial CT of abdomen and pelvis that showed diffuse peripancreatic fat stranding with acute pancreatitis and hepatic steatosis. The patient's triglyceride level at the time of admission was 2904. The patient was intubated and mechanically ventilated. She was seen by Dr. Harrison. The patient was seen in surgery consult by Dr. Darby. The patient underwent decompressive exploratory laparotomy for abdominal compartment syndrome. The patient was placed on TPN. She had sputum cultures that grew beta strep. Blood cultures were negative. The patient had Doppler of left upper extremity that was negative for DVT. The patient had a gallbladder ultrasound that showed gallbladder wall thickening with no gallstones. The patient was transfused blood and FFP during the hospitalization. The patient has since stabilized. She was successfully extubated. The patient has had some confusion, which is progressively improving. The patient will now be discharged home to be on Protonix 40 mg daily and gemfibrozil 600 mg p.o. b.i.d. I have talked to the family about the need to be compliant with low sugar/carbohydrate diet, a low fat diet and strict need for followup on her triglyceride level to prevent recurrence of acute pancreatitis. The patient will follow up with the surgery clinic and with her primary care in the next 1-2 weeks. FINAL DIAGNOSES: Therefore, * Severe acute pancreatitis. * Abdominal compartment syndrome, status post exploratory laparotomy and decompression. * Acute respiratory failure. * Sepsis. * Severe anemia, status post transfusions. * Familial hypertriglyceridemia. * Encephalopathy, toxic metabolic. * Transaminitis. Time spent in discharge planning and review of plan with the patient, nursing and family was 41 minutes. MD ISIDORO Sanchez/TANYA TID: [id number] RECEIPT: [id number]
[2024-09-24 13:12] VITALS: BP 149/97; PULSE 70; RESP 18; TEMP 98.9; O2SAT 98
[2024-09-24 13:28] VITALS: BP 126/74; PULSE 94; RESP 16; TEMP 98.9; O2SAT 95
== END 2024-09-24 16:17 | disposition home or self-care (01) | DRG 710 ==
LOC: ER 12:02 → OVERFLOW 21:34 → WEST WING 21:35 → ICU WEST 08-15 12:02 → TELE-CENTR 09-17 18:14 → CENTRAL 09-18 12:15 → TELE-CENTR 09-19 17:16 → TELE-EAST 09-19 21:58 → EAST 09-23 12:05
PROVIDERS: ADMIT Internal Medicine Pulmonary Disease; ATTEND Internal Medicine
PROC: 05HC33Z Insertion of Infusion Device into Left Basilic Vein, Percutaneous Approach (ICD-10-PCS; 2024-08-15)
PROC: B54NZZA Ultrasonography of Left Upper Extremity Veins, Guidance (ICD-10-PCS; 2024-08-15)
PROC: 5A1955Z Respiratory Ventilation, Greater than 96 Consecutive Hours (ICD-10-PCS; principal; 2024-08-16)
PROC: 0BH18EZ Insertion of Endotracheal Airway into Trachea, Via Natural or Artificial Opening Endoscopic (ICD-10-PCS; 2024-08-16)
PROC: 02HV33Z Insertion of Infusion Device into Superior Vena Cava, Percutaneous Approach (ICD-10-PCS; 2024-08-16)
PROC: 04HY32Z Insertion of Monitoring Device into Lower Artery, Percutaneous Approach (ICD-10-PCS; 2024-08-16)
PROC: 0D9670Z Drainage of Stomach with Drainage Device, Via Natural or Artificial Opening (ICD-10-PCS; 2024-08-17)
PROC: 0W9G0ZZ Drainage of Peritoneal Cavity, Open Approach (ICD-10-PCS; 2024-08-18)
PROC: 30233N1 Transfusion of Nonautologous Red Blood Cells into Peripheral Vein, Percutaneous Approach (ICD-10-PCS; 2024-08-18)
PROC: 30233K1 Transfusion of Nonautologous Frozen Plasma into Peripheral Vein, Percutaneous Approach (ICD-10-PCS; 2024-08-18)
PROC: 02HV33Z Insertion of Infusion Device into Superior Vena Cava, Percutaneous Approach (ICD-10-PCS; 2024-08-19)
PROC: B548ZZA Ultrasonography of Superior Vena Cava, Guidance (ICD-10-PCS; 2024-08-19)
PROC: 0W9F0ZZ Drainage of Abdominal Wall, Open Approach (ICD-10-PCS; 2024-08-20)
PROC: 0W9F0ZZ Drainage of Abdominal Wall, Open Approach (ICD-10-PCS; 2024-08-26)
PROC: 0B9J8ZZ Drainage of Left Lower Lung Lobe, Via Natural or Artificial Opening Endoscopic (ICD-10-PCS; 2024-09-04)
PROC: 0B9F8ZZ Drainage of Right Lower Lung Lobe, Via Natural or Artificial Opening Endoscopic (ICD-10-PCS; 2024-09-04)
DX: A41.9 Sepsis, unspecified organism (principal); J96.00 Acute respiratory failure, unspecified whether with hypoxia or hypercapnia; N17.0 Acute kidney failure with tubular necrosis; J15.69 Pneumonia due to other Gram-negative bacteria; R57.8 Other shock; R65.21 Severe sepsis with septic shock; J15.9 Unspecified bacterial pneumonia; G92.8 Other toxic encephalopathy; K85.90 Acute pancreatitis without necrosis or infection, unspecified; T79.A3XA Traumatic compartment syndrome of abdomen, initial encounter; K65.9 Peritonitis, unspecified; D68.9 Coagulation defect, unspecified; E83.39 Other disorders of phosphorus metabolism; E83.51 Hypocalcemia; R18.8 Other ascites; J90 Pleural effusion, not elsewhere classified; K76.0 Fatty (change of) liver, not elsewhere classified; E86.0 Dehydration; E87.1 Hypo-osmolality and hyponatremia; K57.30 Diverticulosis of large intestine without perforation or abscess without bleeding; E78.1 Pure hyperglyceridemia; J98.11 Atelectasis; E83.42 Hypomagnesemia; D64.9 Anemia, unspecified; E83.52 Hypercalcemia; I16.0 Hypertensive urgency; E87.6 Hypokalemia; E87.5 Hyperkalemia; E87.4 Mixed disorder of acid-base balance; N39.0 Urinary tract infection, site not specified; E78.5 Hyperlipidemia, unspecified; J96.02 Acute respiratory failure with hypercapnia; X58.XXXA Exposure to other specified factors, initial encounter; Z88.1 Allergy status to other antibiotic agents; Y93.89 Activity, other specified; Y92.89 Other specified places as the place of occurrence of the external cause; Y99.8 Other external cause status; Z79.899 Other long term (current) drug therapy
CPT/HCPCS: 36415; 36569; 36600; 71045; 74176; 74177; 76705; 76775; 76937; 80048; 80053; 80061; 80307; 80320; 81001; 82010; 82150; 82247; 82270; 82306; 82550; 82570; 82607; 82805; 82962; 83036; 83605; 83615; 83690; 83735; 83930; 83970; 83986; 84100; 84132; 84156; 84300; 84443; 84478; 84702; 85007; 85014; 85018; 85025; 85027; 85048; 85610; 85730; 86850; 86900; 86901; 86920; 87040; 87045; 87070; 87077; 87081; 87086; 87088; 87205; 87427; 92610; 93005; 93306; 93971; 94002; 94003; 94640; 96365; 96375; 97110; 97116; 97163; 97530; 99291; G0378; J0131; J0171; J0636; J0692; J1100; J1756; J1815; J1885; J2185; J2248; J2250; J2405; J2470; J2704; J3430; J3480; J3490; J7042; J7060; J7131; P9047

== ENCOUNTER 2024-10-07 14:54 | Emergency (ER) | payer OTHER ==
[~2024-10-07 14:54] MED LIST changes: +ATOR40TA52 PO; -FENO54TA4 PO; -FERR324T4 PO; +GEMF600T PO; -HYDR-3682 PO; -OMEP1CAP70 PO; +PANT40TA2 PO
== END 2024-10-07 15:37 | disposition left against medical advice (07) ==
LOC: ER 14:54
DX: R10.9 Unspecified abdominal pain (principal); Z53.21 Procedure and treatment not carried out due to patient leaving prior to being seen by health care provider